=== PATIENT | male | born 1955 | race Caucasian/White ===

== ENCOUNTER 2016-05-17 17:06 | Inpatient (IN) | payer OTHER ==
[2016-05-17 18:15] LABS: MCH 27.6 pg (25.7-33.7); MEAN CELL VOLUME 81.2 fl (80-96); MEAN PLT VOLUME 8.2 fl (7.5-11.1); PLATELET COUNT 166 K/MM3 (134-434); RDW 15.8 % (11.9-15.9); WHITE BLOOD COUNT 7.6 K/mm3 (4.0-10.0)
--- NOTE | 2016-05-17 18:24 | PDOC ---
History of Present Illness - General History Source: Patient, Family, Old Records Exam Limitations: No Limitations - History of Present Illness Initial Comments: 05/17/16 19:42 The patient is a 61 year old male, with a significant past medical history of hypertension, hyperlipidemia, diabetes, coronary artery disease s/p stents x 2, atrial fibrillation (on Eliquis), T cell lymphoma and obesity, who presents to the emergency department with sudden onset of chest pain this afternoon at approximately 4PM. The patient states that he was in his usual state of health earlier today. At approximately 4PM, the patient was sitting down eating when he suddenly began experiencing chest tightness with associated diaphoresis, nausea and shortness of breath which lasted a couple of minutes in length before resolving. A short time later, the patient experienced a second episode of similar chest pain. The patient's family called the patient's commercial loan analyst ( Dr. Toribio) who advised they bring him to the ED for evaluation. The patient denies fever, chills, cough, vomiting or any recent illnesses. The patients family are at the bedside. Allergies: None reported. Past Surgical History: Stents x 2; Foot Surgery. Social History: Non smoker. Denies alcohol or drug use. PCP: Dr. Neil Fisher Sponge Hooking: Dr. Toribio Oncologist: Dr. Guzman <Lina Tillman - Last Filed: 05/17/16 20:01> - General History Source: Patient, Family Exam Limitations: No Limitations <Rodriguez Vegas - Last Filed: 05/17/16 20:05> - General Chief Complaint: Chest Pain Stated Complaint: CHETS PAIN/PALPITATIONS Time Seen by Provider: 05/17/16 17:40 Past History <Lina Tillman - Last Filed: 05/17/16 20:01> - Past Medical History Anemia: No Cancer: Yes (Yes; leukemia) Cardiac Disorders: Yes (2 cardiac stents; AFIB) CHF: Yes Diabetes: Yes GI Disorders: No HTN: Yes Hypercholesterolemia: Yes - Surgical History Cardiac Surgery: Yes (stents) Orthopedic Surgery: Yes (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) - Immunization History Immunization Up to Date: No - Psycho/Social/Smoking Cessation Hx Anxiety: No Suicidal Ideation: No Smoking Status: Yes Smoking History: Never smoked Have you smoked in the past 12 months: No Number of Cigarettes Smoked Daily: 0 Hx Alcohol Use: No Drug/Substance Use Hx: No Substance Use Type: None Hx Substance Use Treatment: No <ShastaRodriguez - Last Filed: 05/17/16 20:05> - Past Medical History Allergies/Adverse Reactions: Allergies Allergy/AdvReac Type Severity Reaction Status Date / Time No Known Drug Allergies Allergy Verified 05/17/16 17:18 Home Medications: Ambulatory Orders Apixaban [Eliquis] 5 mg PO DAILY 05/17/16 Cholecalciferol (Vitamin D3) [Vitamin D3 -] 1,000 unit PO DAILY 05/17/16 Clopidogrel Bisulfate [Plavix -] 75 mg PO DAILY 05/17/16 Cyclosporine [Sandimmune] 100 mg PO DAILY 05/17/16 Dulaglutide [Trulicity] 1.5 mg SQ DAILY 05/17/16 Febuxostat [Uloric -] 40 mg PO DAILY 05/17/16 Ferrous Sulfate [Feosol] 325 mg PO DAILY 05/17/16 Gabapentin 300 mg PO BID 05/17/16 Insulin Lispro [Humalog] 15 unit SQ BID 05/17/16 Magnesium Oxide [Magnesium] 400 mg PO DAILY 05/17/16 Meclizine HCl [Antivert -] 25 mg PO DAILY 05/17/16 Metoprolol Tartrate [Lopressor -] 25 mg PO DAILY 05/17/16 Potassium Chloride [K-Dur -] 20 meq PO DAILY 05/17/16 Torsemide [Demadex] 50 mg PO DAILY 05/17/16 Review of Systems - Review of Systems Able to Perform ROS?: Yes Comments:: 05/17/16 19:28 GENERAL/CONSTITUTIONAL: No fever or chills. No weakness. HEAD, EYES, EARS, NOSE AND THROAT: No change in vision. No ear pain or discharge. No sore throat. CARDIOVASCULAR: +Chest pain, diaphoresis, palpitations, shortness of breath. RESPIRATORY: No cough, wheezing, or hemoptysis. GASTROINTESTINAL: No nausea, vomiting, diarrhea or constipation. GENITOURINARY: No dysuria, frequency, or change in urination. MUSCULOSKELETAL: No joint or muscle swelling or pain. No neck or back pain. SKIN: No rash. NEUROLOGIC: No headache, vertigo, loss of consciousness, or change in strength/ sensation. ENDOCRINE: No increased thirst. No abnormal weight change. HEMATOLOGIC/LYMPHATIC: No anemia, easy bleeding, or history of blood clots. ALLERGIC/IMMUNOLOGIC: No hives or skin allergy. <Lina Tillman - Last Filed: 05/17/16 20:01> *Physical Exam - Vital Signs Last Vital Signs Temp Pulse Resp BP Pulse Ox 97.4 F L 119 H 20 154/90 100 05/17/16 17:18 05/17/16 17:18 05/17/16 17:18 05/17/16 17:18 05/17/16 17:18 - Physical Exam Comments: 05/17/16 18:29 GENERAL: Obese. Awake, alert, and fully oriented, in no acute distress. HEAD: No signs of trauma. EYES: PERRLA, EOMI, sclera anicteric, conjunctiva clear. ENT: Auricles normal inspection, hearing grossly normal, nares patent, oropharynx clear without exudates. Moist mucosa. NECK: Normal ROM, supple, no lymphadenopathy, JVD, or masses. LUNGS: Breath sounds equal, clear to auscultation bilaterally. No wheezes, and no crackles. HEART: Irregularly irregular, normal S1 and S2, no murmurs, rubs or gallops. ABDOMEN: Soft, nontender, normoactive bowel sounds. No guarding, no rebound. No masses. EXTREMITIES: Normal range of motion, no edema. No clubbing or cyanosis. No cords , erythema, or tenderness. NEUROLOGICAL: Cranial nerves II through XII intact. Normal speech, normal gait. SKIN: Warm, dry, normal turgor, no rashes or lesions noted. <Lina Tillman - Last Filed: 05/17/16 20:01> - Vital Signs Last Vital Signs Temp Pulse Resp BP Pulse Ox 97.4 F L 119 H 20 154/90 100 05/17/16 17:18 05/17/16 17:18 05/17/16 17:18 05/17/16 17:18 05/17/16 17:18 <Rodriguez Vegas - Last Filed: 05/17/16 20:05> Heart Score/ECG Review - History History: Moderately suspicious - Electrocardiogram EKG: Normal - Age Age: 45-65 - Risk Factors Based on the list above the patient has:: >/=3 risk factors or Hx atherosclerotic disease - Troponin Troponin: </= normal limit - Score Heart Score - Total: 4 #1 ECG reviewed & interpreted by me at: 17:15 05/17/16 18:21 atrial fibrillation 109, left axis deviation, no std/ganesh, QTC 447 msec <Rodriguez Vegas - Last Filed: 05/17/16 20:05> ED Treatment Course - LABORATORY CBC & Chemistry Diagram: 05/17/16 17:46 05/17/16 17:46 - ADDITIONAL ORDERS Additional order review: Laboratory Results 05/17/16 17:46 INR Cancelled <Lina Tillman - Last Filed: 05/17/16 20:01> - LABORATORY CBC & Chemistry Diagram: 05/17/16 17:46 05/17/16 17:46 - ADDITIONAL ORDERS Additional order review: Laboratory Results 05/17/16 17:46 INR Cancelled - RADIOLOGY Radiology Studies Ordered: Category Date Time Status CHEST X-RAY PORTABLE* [RAD] Stat Radiology 05/17/16 17:45 Completed <Rodriguez Vegas - Last Filed: 05/17/16 20:05> Medical Decision Making - Medical Decision Making 05/17/16 19:21 EXAM: RAD/CHEST X-RAY PORTABLE Reviewed By: Dr. Juice Goode IMPRESSION: Mild to moderate cardiomegaly and mild bibasal atelectatic changes, right more than left. Call placed to Dr. Neil at 19:08, 19:26, 19:50. Referred to answering service, awaiting callback. Dr. Wilson returned call at 20:00, case discussed. Call placed to Dr. Toribio at 19:10. Referred to answering service, awaiting callback. Dr. Huston returned call at 19:15, case discussed. <Lina Tillman - Last Filed: 05/17/16 20:01> - Medical Decision Making 05/17/16 18:22 A portion of this note was documented by scribe services under my direction. I have reviewed the details of the note, within reason, and agree with the documentation with the following case summary and management plan written by me. Patient treated in the ED. Nursing notes are reviewed and incorporated into the medical decision-making. Vital signs reviewed. Peripheral IV access obtained by the nurse, laboratory studies are drawn and sent, reviewed and interpreted by myself. Vital Signs Temp Pulse Resp BP Pulse Ox 97.4 F L 119 H 20 154/90 100 05/17/16 17:18 05/17/16 17:18 05/17/16 17:18 05/17/16 17:18 05/17/16 17:18 61-year-old male with past medical history of hypertension, diabetes, hyperlipidemia, obesity, coronary disease status post stents, atrial fibrillation on eliquis presents to the emergency department chest pain. Patient reports that he woke up in his usual state health. Approximately 4 PM, when he was eating, he felt the sudden onset of chest tightness with diaphoresis , nausea and shortness of breath. This lasted for several minutes. Occurred a second time and resolved again. Patient denies chest pain this time. He called his commercial loan analyst Dr. Toribio who directed the patient to the ER for further management. We'll need to rule out myocardial infarction. We'll admit the patient to the hospital for further patient. 05/17/16 20:04 Pt's afib HR improved with 5 mg IV metoprolol. CBC, BMP 05/17/16 17:46 05/17/16 17:46 CMP Sodium 136 mmol/L (136-145) 05/17/16 17:46 Potassium 4.4 mmol/L (3.5-5.1) 05/17/16 17:46 Chloride 98 mmol/L (98-107) 05/17/16 17:46 Carbon Dioxide 27 mmol/L (21-32) 05/17/16 17:46 Anion Gap 11 (8-16) 05/17/16 17:46 BUN 34 mg/dL (7-18) H 05/17/16 17:46 Creatinine 1.4 mg/dL (0.7-1.3) H 05/17/16 17:46 Creat Clearance w eGFR 51.69 (>60) 05/17/16 17:46 Random Glucose 319 mg/dL (74-106) H* D 05/17/16 17:46 Calcium 8.0 mg/dL (8.5-10.1) L 05/17/16 17:46 Total Bilirubin 0.6 mg/dL (0.2-1.0) D 05/17/16 17:46 AST 23 U/L (15-37) D 05/17/16 17:46 ALT 28 U/L (12-78) D 05/17/16 17:46 Alkaline Phosphatase 123 U/L (45-117) H D 05/17/16 17:46 Creatine Kinase 76 IU/L (39-308) 05/17/16 17:46 Troponin I < 0.02 ng/ml (0.00-0.05) 05/17/16 17:46 Total Protein 7.1 g/dl (6.4-8.2) 05/17/16 17:46 Albumin 3.2 g/dl (3.4-5.0) L 05/17/16 17:46 Trop negative. Case discussed with Dr. Huston, commercial loan analyst. States can hold off from giving aspirin given that he is already on Plavix and Eliquis. Case discussed with Dr. Wilson. He accepts the patient under telemetry observation under Dr. Neil. Case discussed in detail with admitting physician including history, physical exam and ancillary studies. Admitting physician has assumed care for the patient, will follow all pending diagnostics and will complete the evaluation and treatment. <Rodriguez Vegas - Last Filed: 05/17/16 20:05> *DC/Admit/Observation/Transfer - Attestations Scribe Attestion: 05/17/16 18:29 Documentation prepared by Lina Tillman, acting as adjunct faculty for medical terminology for Rodriguez Vegas MD. <Lina Tillman - Last Filed: 05/17/16 20:01> - Discharge Dispostion Admit: Yes <Rodriguez Vegas - Last Filed: 05/17/16 20:05> Diagnosis at time of Disposition: Afib Qualifiers: Atrial fibrillation type: unspecified Qualified Code(s): I48.91 - Unspecified atrial fibrillation Chest pain Qualifiers: Chest pain type: unspecified Qualified Code(s): R07.9 - Chest pain, unspecified - Discharge Dispostion Condition at time of disposition: Stable - Referrals Referrals: Diomedes Neil MD [Primary Care Provider] -
[2016-05-17] MEDS ORDERED: METOPROLOL TARTRATE 5 MG/5 ML VIAL IVPUSH ONE (18:30)
[2016-05-17 18:31] LABS: ALBUMIN 3.2 g/dl (3.4-5.0); ANION GAP 11 (8-16); BILIRUBIN,TOTAL 0.6 mg/dL (0.2-1.0); CO2 27 mmol/L (21-32); COCKROFT - GAULT 133.19; CREATININE 1.4 mg/dL (0.7-1.3); SGOT/AST 23 U/L (15-37); SGPT/ALT 28 U/L (12-78); TOT PROT 7.1 g/dl (6.4-8.2)
[2016-05-17 18:34] LABS: ALK PHOS 123 U/L (45-117); TROPONIN I < 0.02 ng/ml (0.00-0.05)
[2016-05-17 18:37] LABS: GLUCOSE,RANDOM 319 mg/dL (74-106)
[2016-05-17] MEDS ORDERED: METOPROLOL TARTRATE 5 MG/5 ML VIAL ONE (18:42)
[2016-05-17 20:55] LABS: INR 1.2 (0.82-1.09); PROTHROMBIN TIME (PATIENT) 13.3 SEC (9.98-11.88)
[2016-05-18 00:19] LABS: PLATELET COMMENT2 NO CLOTTING DETECTED; PLATELET ESTIMATE ADEQUATE (NORMAL); SMUDGE CELLS FEW
[2016-05-18 00:20] LABS: HYPOCHROMIA 1+; POLYCHROMASIA 1+
[2016-05-18] MEDS: INSULIN SLIDING SCALE (NOVOLOG) 1 VIAL SQ SCH ×5 (06:32→21:52)
[2016-05-18] MEDS ORDERED: INSULIN (NOVOLOG) ASPART 100 UNITS/ML 10ML VIAL ONE (07:01)
[2016-05-18 07:56] LABS: MCH 27.2 pg (25.7-33.7); MCHC 33.5 g/dl (32.0-35.9); MEAN CELL VOLUME 81.3 fl (80-96); MEAN PLT VOLUME 8.2 fl (7.5-11.1); PLATELET COUNT 149 K/MM3 (134-434); RDW 15.8 % (11.9-15.9); WHITE BLOOD COUNT 7.7 K/mm3 (4.0-10.0)
[2016-05-18 08:25] LABS: URIC ACID 9.9 mg/dL (2.6-7.2)
[2016-05-18 08:30] LABS: BILIRUBIN,TOTAL 0.6 mg/dL (0.2-1.0); CALCIUM 7.8 mg/dL (8.5-10.1); COCKROFT - GAULT 145.47; CREATININE 1.3 mg/dL (0.7-1.3); TOT PROT 6.3 g/dl (6.4-8.2); TROPONIN I 0.03 ng/ml (0.00-0.05)
--- NOTE | 2016-05-18 09:14 | HP ---
Admitting History and Physical - Primary Care Physician PCP: Diomedes Neil - Admission Chief Complaint: afib. 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: Peripheral Neuropathy Cardiovascular: Yes: AFIB, CAD, CHF, HTN, Hyperlipdemia Gastrointestinal: Yes: GERD Renal/: Yes: Renal Inusuff, Other (zhang) Heme/Onc: Yes: Anemia Infectious Disease: Yes: Other (osteomyelitis of left fifth metartarsal 2011) Endocrine: Yes: Diabetes Mellitus - Past Surgical History Past Surgical History: Yes: Stent (X2) - Smoking History Smoking history: Never smoked Have you smoked in the past 12 months: No Aproximately how many cigarettes per day: 0 - Alcohol/Substance Use Hx Alcohol Use: No History of Substance Use: reports: None - Social History ADL: Independent History of Recent Travel: No Home Medications - Allergies Allergies/Adverse Reactions: Allergies Allergy/AdvReac Type Severity Reaction Status Date / Time No Known Drug Allergies Allergy Verified 05/17/16 17:18 - Home Medications Home Medications: Ambulatory Orders Apixaban [Eliquis] 5 mg PO DAILY 05/17/16 Cholecalciferol (Vitamin D3) [Vitamin D3 -] 1,000 unit PO DAILY 05/17/16 Clopidogrel Bisulfate [Plavix -] 75 mg PO DAILY 05/17/16 Cyclosporine [Sandimmune] 100 mg PO DAILY 05/17/16 Dulaglutide [Trulicity] 1.5 mg SQ DAILY 05/17/16 Febuxostat [Uloric -] 40 mg PO DAILY 05/17/16 Ferrous Sulfate [Feosol] 325 mg PO DAILY 05/17/16 Gabapentin 300 mg PO BID 05/17/16 Insulin Lispro [Humalog] 15 unit SQ BID 05/17/16 Magnesium Oxide [Magnesium] 400 mg PO DAILY 05/17/16 Meclizine HCl [Antivert -] 25 mg PO DAILY 05/17/16 Metoprolol Tartrate [Lopressor -] 25 mg PO DAILY 05/17/16 Potassium Chloride [K-Dur -] 20 meq PO DAILY 05/17/16 Torsemide [Demadex] 50 mg PO DAILY 05/17/16 Family Disease History - Family Disease History Family Disease History: Diabetes: Father, Mother, Heart Disease: Father, Mother , Brother Review of Systems - Review of Systems Constitutional: denies: Chills, Fever Cardiovascular: denies: Chest Pain Respiratory: reports: SOB Gastrointestinal: denies: Abdominal Pain Physical Examination Vital Signs: Vital Signs Temperature 98.1 F 05/18/16 05:29 Pulse Rate 106 H 05/18/16 05:29 Respiratory Rate 16 05/18/16 05:29 Blood Pressure 148/83 05/18/16 05:29 O2 Sat by Pulse Oximetry (%) 100 05/18/16 01:17 Constitutional: Yes: Calm Eyes: Yes: PERRL HENT: Yes: Normocephalic Neck: Yes: WNL Cardiovascular: Yes: WNL Respiratory: Yes: WNL Gastrointestinal: Yes: WNL, Abdomen, Obese Edema: Yes Integumentary: Yes: Venous Stasis Changes Labs: CBC, BMP 05/18/16 06:30 05/18/16 06:30 Imaging - Results Chest X-ray: Report Reviewed Problem List - Problems (1) Afib Code(s): I48.91 - UNSPECIFIED ATRIAL FIBRILLATION Qualifiers: Atrial fibrillation type: unspecified Qualified Code(s): I48.91 - Unspecified atrial fibrillation (2) Chest pain Code(s): R07.9 - CHEST PAIN, UNSPECIFIED Qualifiers: Chest pain type: unspecified Qualified Code(s): R07.9 - Chest pain, unspecified (3) CHF (congestive heart failure) Code(s): I50.9 - HEART FAILURE, UNSPECIFIED (4) Diabetes Code(s): E11.9 - TYPE 2 DIABETES MELLITUS WITHOUT COMPLICATIONS Qualifiers: Diabetes mellitus type: type 2 Diabetes mellitus complication detail: with foot ulcer (5) HTN (hypertension) Code(s): I10 - ESSENTIAL (PRIMARY) HYPERTENSION (6) ZHANG (acute kidney injury) Code(s): N17.9 - ACUTE KIDNEY FAILURE, UNSPECIFIED Assessment/Plan The patient is a 61 year old male, with a significant past medical history of hypertension, hyperlipidemia, diabetes, coronary artery disease s/p stents x 2, atrial fibrillation (on Eliquis), T cell lymphoma and obesity, who presents to the emergency department with sudden onset of chest pain this afternoon at approximately 4PM. The patient states that he was in his usual state of health earlier today. At approximately 4PM, the patient was sitting down eating when he suddenly began experiencing chest tightness with associated diaphoresis, nausea and shortness of breath which lasted a couple of minutes in length before resolving. A short time later, the patient experienced a second episode of similar chest pain. The patient's family called the patient's director of guidance in public schools ( Dr. Toribio) who advised they bring him to the ED for evaluation. The patient denies fever, chills, cough, vomiting or any recent illnesses. The patients family are at the bedside. Allergies: None reported. Past Surgical History: Stents x 2; Foot Surgery. Social History: Non smoker. Denies alcohol or drug use. PCP: Dr. Neil Type Inspector: Dr. Toribio Oncologist: Dr. Guzman (1) Afib Code(s): I48.91 - UNSPECIFIED ATRIAL FIBRILLATION Qualifiers: Atrial fibrillation type: unspecified Qualified Code(s): I48.91 - Unspecified atrial fibrillation noac cardio consulted tele (2) Chest pain Code(s): R07.9 - CHEST PAIN, UNSPECIFIED Qualifiers: Chest pain type: unspecified Qualified Code(s): R07.9 - Chest pain, unspecified trop neg x 2 cardio consulted (3) CHF (congestive heart failure) Code(s): I50.9 - HEART FAILURE, UNSPECIFIED Qualifiers: Qualified Code(s): I50.32 - Chronic diastolic (congestive) heart failure cxr shows congestion on demadex iv lasix cr improved (4) Diabetes Code(s): E11.9 - TYPE 2 DIABETES MELLITUS WITHOUT COMPLICATIONS Qualifiers: Diabetes mellitus type: type 2 Diabetes mellitus complication detail: with foot ulcer Qualified Code(s): E11.621 - Type 2 diabetes mellitus with foot ulcer; L97.509 - Non-pressure chronic ulcer of other part of unspecified foot with unspecified severity; 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
[2016-05-18] MEDS: CHOLECALCIFEROL (VITAMIN D3) 1,000 UNIT TABLET (FP) PO SCH (09:16)
[2016-05-18] MEDS: APIXABAN 5 MG TABLET PO SCH ×2 (09:17→21:52)
[2016-05-18] MEDS: CLOPIDOGREL BISULFATE 75 MG TABLET (FP) PO SCH (09:17)
[2016-05-18] MEDS: METOPROLOL TARTRATE 25 MG TABLET (FP) PO SCH (09:17)
[2016-05-18] MEDS: MECLIZINE HCL 25 MG TABLET (FP) PO SCH (09:17)
[2016-05-18] MEDS: POTASSIUM CHLORIDE TABS 20 MEQ TABLET.ER (FP) PO SCH (09:17)
[2016-05-18] MEDS: GABAPENTIN 300 MG CAPSULE (FP) PO SCH ×2 (09:17→21:52)
[2016-05-18] MEDS: FERROUS SO4 325 MG TABLET (FP) PO SCH (09:18)
[2016-05-18 09:50] LABS: HYPOCHROMIA 1+; POLYCHROMASIA 1+
[2016-05-18] MEDS ORDERED: FUROSEMIDE 40 MG/4 ML INJECTABLE VIAL IVPB SCH (10:00)
[2016-05-18] MEDS ORDERED: APIXABAN 5 MG TABLET PO SCH (10:00)
[2016-05-18] MEDS ORDERED: PATIENT'S OWN MEDICATION (NON-FORMULARY) (Dulaglutide [Trulicity] 1.5 MG) SQ SCH (10:00)
[2016-05-18] MEDS ORDERED: PT OWN MED DRAWER 7, Y5N ONE (10:43)
[2016-05-18] MEDS: cycloSPORINE 100 MG CAPSULE PO SCH (12:25)
[2016-05-18] MEDS: TORSEMIDE 100 MG TABLET PO SCH (12:25)
[2016-05-18] MEDS ORDERED: INSULIN (NOVOLOG) ASPART 100 UNITS/ML 10ML VIAL SQ SCH (16:30)
--- NOTE | 2016-05-18 17:16 | CONSULT ---
Consult Consult Specialty:: Cardiology Referred by:: ED Reason for Consultation:: Chest pain - History of Present Illness Chief Complaint: Chest pain History of Present Illness: 61 yo male Known h/o HTN, HPL, DM Known CAD with ptiot PCI on NOAC and plavix Afob on Apixaban Now admitted after acute and recurrent episode of chest pain associated with diaphoresis, dyspnea and nausea. 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 Cardio/Vascular: Yes: AFIB, CAD, CHF, HTN, Hyperlipdemia Gastrointestinal: Yes: GERD Renal/: Yes: Renal Inusuff, Other (gopal) Infectious Disease: Yes: Other (osteomyelitis of left fifth metartarsal 2011) Endocrine: Yes: Diabetes Mellitus Additional Medical History: obesity - Past Surgical History Past Surgical History: Yes: Stent (X2) - Alcohol/Substance Use Hx Alcohol Use: No History of Substance Use: reports: None - Smoking History Smoking history: Never smoked Have you smoked in the past 12 months: No Aproximately how many cigarettes per day: 0 - Social History Usual Living Arrangement: With Spouse ADL: Independent History of Recent Travel: No Home Medications - Allergies Allergies/Adverse Reactions: Allergies Allergy/AdvReac Type Severity Reaction Status Date / Time No Known Drug Allergies Allergy Verified 05/17/16 17:18 - Home Medications Home Medications: Ambulatory Orders Apixaban [Eliquis] 5 mg PO DAILY 05/17/16 Cholecalciferol (Vitamin D3) [Vitamin D3 -] 1,000 unit PO DAILY 05/17/16 Clopidogrel Bisulfate [Plavix -] 75 mg PO DAILY 05/17/16 Cyclosporine [Sandimmune] 100 mg PO DAILY 05/17/16 Dulaglutide [Trulicity] 1.5 mg SQ DAILY 05/17/16 Febuxostat [Uloric -] 40 mg PO DAILY 05/17/16 Ferrous Sulfate [Feosol] 325 mg PO DAILY 05/17/16 Gabapentin 300 mg PO BID 05/17/16 Insulin Lispro [Humalog] 15 unit SQ BID 05/17/16 Magnesium Oxide [Magnesium] 400 mg PO DAILY 05/17/16 Meclizine HCl [Antivert -] 25 mg PO DAILY 05/17/16 Metoprolol Tartrate [Lopressor -] 25 mg PO DAILY 05/17/16 Potassium Chloride [K-Dur -] 20 meq PO DAILY 05/17/16 Torsemide [Demadex] 50 mg PO DAILY 05/17/16 Family Disease History - Family Disease History Family Disease History: Diabetes: Father, Mother, Heart Disease: Father, Mother , Brother Review of Systems - Review of Systems Cardiovascular: reports: Chest Pain, Palpitations Physical Exam Vital Signs: Vital Signs Temperature 97.8 F 05/18/16 14:00 Pulse Rate 66 05/18/16 14:00 Respiratory Rate 22 05/18/16 14:00 Blood Pressure 110/52 05/18/16 14:00 O2 Sat by Pulse Oximetry (%) 100 05/18/16 09:15 Constitutional: Yes: No Distress, Calm Eyes: Yes: WNL HENT: Yes: WNL Neck: Yes: WNL Cardiovascular: Yes: Regular Rate and Rhythm Respiratory: Yes: WNL Gastrointestinal: Yes: Abdomen, Obese Edema: Yes Edema: LLE: 2+, RLE: 2+ Labs: CBC, BMP 05/18/16 06:30 05/18/16 06:30 Imaging - Results EKG: Image Reviewed (Afib at 109 with LAD) Assessment/Plan 61 yo 1) Chest pain -prior SANGITA x 2 to prox and dist Lcx 2012; -no residual obstructive dz then (30-50% LAD, mild RCA); -Atypical symptoms, non -exertional and following food intake -Stress testing will be a challenge on [facility] obese patient -Continue to montior, if no further symptoms may recommend continues medical therapy. 2) HFpEF: well-compensated, no sob; LE edema stable continue po torsemide Echo 03/27: nl LV/EF; nl RV; valve fxn WNL2) HTN 4) Afib -Now in NSR with gabriela -Hold BB for HR <50 Continue Eliquis
[2016-05-18] MEDS ORDERED: INSULIN (NOVOLOG MIX 70/30) 100 UNITS/ML MDV SQ ONE (18:38)
[2016-05-18] MEDS: INSULIN (NOVOLOG MIX 70/30) 100 UNITS/ML MDV SQ SCH (18:40)
--- NOTE | 2016-05-19 00:14 | CONSULT ---
Consult Consult Specialty:: endocrine Referred by:: Reason for Consultation:: iddm - History of Present Illness Chief Complaint: high blood sugars History of Present Illness: 61 year old male, with a significant past medical history of hypertension, hyperlipidemia, diabetes, coronary artery disease s/p stents x 2, atrial fibrillation (on Eliquis), T cell lymphoma and obesity, who presents to the emergency department with sudden onset of chest pain this afternoon at approximately 4PM. The patient states that he was in his usual state of health earlier today.has difficulty controlling sugars,and weight with history of diabetic wound infection both le,s has difficulty walking and restricted mobility given his morbid obese condition - History Source History Provided By: Patient - Past Medical History CHAIN DYER: Yes: Peripheral Neuropathy Cardio/Vascular: Yes: AFIB, CAD, CHF, HTN, Hyperlipdemia Gastrointestinal: Yes: GERD Renal/: Yes: Renal Inusuff, Other (gopal) Infectious Disease: Yes: Other (osteomyelitis of left fifth metartarsal 2011) Endocrine: Yes: Diabetes Mellitus Additional Medical History: obesity - Past Surgical History Past Surgical History: Yes: Stent (X2) - Alcohol/Substance Use Hx Alcohol Use: No History of Substance Use: reports: None - Smoking History Smoking history: Never smoked Have you smoked in the past 12 months: No Aproximately how many cigarettes per day: 0 - Social History Usual Living Arrangement: With Spouse ADL: Independent History of Recent Travel: No Home Medications - Allergies Allergies/Adverse Reactions: Allergies Allergy/AdvReac Type Severity Reaction Status Date / Time No Known Drug Allergies Allergy Verified 05/17/16 17:18 - Home Medications Home Medications: Ambulatory Orders Apixaban [Eliquis] 5 mg PO DAILY 05/17/16 Cholecalciferol (Vitamin D3) [Vitamin D3 -] 1,000 unit PO DAILY 05/17/16 Clopidogrel Bisulfate [Plavix -] 75 mg PO DAILY 05/17/16 Cyclosporine [Sandimmune] 100 mg PO DAILY 05/17/16 Dulaglutide [Trulicity] 1.5 mg SQ DAILY 05/17/16 Febuxostat [Uloric -] 40 mg PO DAILY 05/17/16 Ferrous Sulfate [Feosol] 325 mg PO DAILY 05/17/16 Gabapentin 300 mg PO BID 05/17/16 Insulin Lispro [Humalog] 15 unit SQ BID 05/17/16 Magnesium Oxide [Magnesium] 400 mg PO DAILY 05/17/16 Meclizine HCl [Antivert -] 25 mg PO DAILY 05/17/16 Metoprolol Tartrate [Lopressor -] 25 mg PO DAILY 05/17/16 Potassium Chloride [K-Dur -] 20 meq PO DAILY 05/17/16 Torsemide [Demadex] 50 mg PO DAILY 05/17/16 Family Disease History - Family Disease History Family Disease History: Diabetes: Father, Mother, Heart Disease: Father, Mother , Brother Review of Systems - Review of Systems Constitutional: reports: Weakness Eyes: reports: No Symptoms HENT: reports: No Symptoms Neck: reports: No Symptoms Cardiovascular: reports: Edema, Shortness of Breath Respiratory: reports: SOB on Exertion Gastrointestinal: reports: No Symptoms Genitourinary: reports: No Symptoms Musculoskeletal: reports: Muscle Cramps, Muscle Weakness Integumentary: reports: Pruritis Neurological: reports: Numbness, Unsteady Gait, Weakness Endocrine: reports: Unexplained Weight Gain Physical Exam Vital Signs: Vital Signs Temperature 98.1 F 05/18/16 22:00 Pulse Rate 66 05/18/16 22:00 Respiratory Rate 20 05/18/16 22:00 Blood Pressure 128/60 05/18/16 22:00 O2 Sat by Pulse Oximetry (%) 100 05/18/16 22:00 Constitutional: Yes: Calm Eyes: Yes: EOM Intact HENT: Yes: Normocephalic Neck: Yes: Trachea Midline Cardiovascular: Yes: Pulse Irregular, Murmur Respiratory: Yes: CTA Bilaterally Gastrointestinal: Yes: Normal Bowel Sounds ...Rectal Exam: Yes: Deferred Renal/: Yes: WNL Breast(s): Yes: WNL Musculoskeletal: Yes: Muscle Pain Extremities: Yes: Delayed Capillary Refill, Erythema Edema: Yes Edema: LLE: 2+, RLE: 1+ Peripheral Pulses WNL: No Integumentary: Yes: Onychomycosis, Venous Stasis Changes Neurological: Yes: Alert, Oriented Labs: CBC, BMP 05/18/16 06:30 05/18/16 06:30 Problem List - Problems (1) Afib Code(s): I48.91 - UNSPECIFIED ATRIAL FIBRILLATION Qualifiers: Atrial fibrillation type: unspecified Qualified Code(s): I48.91 - Unspecified atrial fibrillation (2) CAD (coronary artery disease) Code(s): I25.10 - ATHSCL HEART DISEASE OF [place] CORONARY ARTERY W/O ANG PCTRS (3) Cellulitis of toe Code(s): L03.039 - CELLULITIS OF UNSPECIFIED TOE Qualifiers: Laterality: left Qualified Code(s): L03.032 - Cellulitis of left toe (4) Diabetes mellitus, insulin dependent (IDDM), uncontrolled Code(s): E10.65 - TYPE 1 DIABETES MELLITUS WITH HYPERGLYCEMIA Assessment/Plan Current Active Problems Afib (Acute) Chest pain (Acute) iddm ckd nephropathy htn chf pvd chronic diabetic foot infections morbid obesity Abnormal Lab Results 05/17/16 05/18/16 05/18/16 17:46 06:30 06:30 Hgb 11.5 L Hct 34.4 L Neutrophils % 4.0 L 13.0 L D Lymphocytes % 77.0 H 71.0 H BUN 30 H Random Glucose 239 H D Hemoglobin A1c % Uric Acid Calcium 7.8 L Total Protein 6.3 L Albumin 3.0 L HDL Cholesterol 05/18/16 05/18/16 06:30 06:30 Hgb Hct Neutrophils % Lymphocytes % BUN Random Glucose Hemoglobin A1c % 8.9 H D Uric Acid 9.9 H D Calcium Total Protein Albumin HDL Cholesterol 39 L Current Medications Generic Name Dose Route Start Last Admin Trade Name Freq PRN Reason Stop Dose Admin Apixaban 5 mg 05/18/16 10:00 05/18/16 21:52 Eliquis - PO 5 mg BID JENNY Administration Cholecalciferol 1,000 unit 05/18/16 10:00 05/18/16 09:16 Vitamin D3 - PO 1,000 unit DAILY JENNY Administration Clopidogrel Bisulfate 75 mg 05/18/16 10:00 05/18/16 09:17 Plavix - PO 75 mg DAILY JENNY Administration Cyclosporine 100 mg 05/18/16 10:00 05/18/16 12:25 Sandimmune (Nf) PO 100 mg DAILY JENNY Administration Febuxostat 40 mg 05/18/16 10:00 05/18/16 12:24 Uloric - PO 40 mg DAILY JENNY Administration Ferrous Sulfate 325 mg 05/18/16 10:00 05/18/16 09:18 Feosol - PO Not Given DAILY JENNY Furosemide 40 mg 05/18/16 10:00 05/18/16 10:48 Lasix Injection - IVPB 40 mg DAILY JENNY Administration Gabapentin 300 mg 05/18/16 10:00 05/18/16 21:52 Neurontin - PO 300 mg BID JENNY Administration Insulin Aspart 15 units 05/19/16 07:00 05/18/16 18:40 Novolog Mix 70/30 Vial SQ 15 units BIDAC JENNY Administration Insulin Aspart 1 vial 05/18/16 18:06 05/18/16 21:52 Novolog Vial Sliding Scale - SQ 5 units ACHS JENNY Administration Protocol Meclizine HCl 25 mg 05/18/16 10:00 05/18/16 09:17 Antivert - PO 25 mg DAILY JENNY Administration Metoprolol Tartrate 25 mg 05/18/16 10:00 05/18/16 09:17 Lopressor - PO 25 mg DAILY JENNY Administration Non-Formulary Medication 1.5 mg 05/18/16 10:00 Dulaglutide [Trulicity] SQ DAILY JENNY Potassium Chloride 20 meq 05/18/16 10:00 05/18/16 09:17 K-Dur - PO 20 meq DAILY JENNY Administration Torsemide 50 mg 05/18/16 10:00 05/18/16 12:25 Demadex - PO 50 mg DAILY JENNY Administration plan: bgm qid novolog coverage novolog 70/30 bid 15 units ck [id number] cardiac eval in progress
[2016-05-19] MEDS: INSULIN (NOVOLOG MIX 70/30) 100 UNITS/ML MDV SQ SCH ×2 (06:14→17:34)
[2016-05-19] MEDS: INSULIN SLIDING SCALE (NOVOLOG) 1 VIAL SQ SCH ×4 (06:14→21:59)
[2016-05-19 07:38] LABS: MCH 27.3 pg (25.7-33.7); MCHC 33.7 g/dl (32.0-35.9); PLATELET COUNT 132 K/MM3 (134-434); WHITE BLOOD COUNT 8.1 K/mm3 (4.0-10.0)
--- NOTE | 2016-05-19 07:50 | DS ---
Physical Examination Vital Signs: Vital Signs Temperature 97.9 F 05/19/16 06:00 Pulse Rate 70 05/19/16 06:00 Respiratory Rate 20 05/19/16 06:00 Blood Pressure 146/74 05/19/16 06:00 O2 Sat by Pulse Oximetry (%) 100 05/18/16 22:00 Findings/Remarks: NO COMPLAINTS OK WITH GOING HOME FAMILY AT BEDSIDE Constitutional: Yes: Calm Neck: Yes: WNL Cardiovascular: Yes: WNL Respiratory: Yes: WNL Gastrointestinal: Yes: WNL Edema: Yes Integumentary: Yes: Venous Stasis Changes Discharge Summary Reason For Visit: ATRIAL FIBRILLATION, CHEST PAIN Current Active Problems Afib (Acute) Chest pain (Acute) Hospital Course: The patient is a 61 year old male, with a significant past medical history of hypertension, hyperlipidemia, diabetes, coronary artery disease s/p stents x 2, atrial fibrillation (on Eliquis), T cell lymphoma and obesity, who presents to the emergency department with sudden onset of chest pain this afternoon at approximately 4PM. The patient states that he was in his usual state of health earlier today. At approximately 4PM, the patient was sitting down eating when he suddenly began experiencing chest tightness with associated diaphoresis, nausea and shortness of breath which lasted a couple of minutes in length before resolving. A short time later, the patient experienced a second episode of similar chest pain. The patient's family called the patient's informatica ( Dr. Toribio) who advised they bring him to the ED for evaluation. The patient denies fever, chills, cough, vomiting or any recent illnesses. The patients family are at the bedside. Allergies: None reported. Past Surgical History: Stents x 2; Foot Surgery. Social History: Non smoker. Denies alcohol or drug use. PCP: Dr. Neil Temp Recruiter: Dr. Toribio Oncologist: Dr. Guzman (1) Afib Code(s): I48.91 - UNSPECIFIED ATRIAL FIBRILLATION Qualifiers: Atrial fibrillation type: unspecified Qualified Code(s): I48.91 - Unspecified atrial fibrillation noac cardio consult appreciated tele (2) Chest pain Code(s): R07.9 - CHEST PAIN, UNSPECIFIED Qualifiers: Chest pain type: unspecified Qualified Code(s): R07.9 - Chest pain, unspecified no acs cardio consult appreciated -> atypical chest pain (3) CHF (congestive heart failure) Code(s): I50.9 - HEART FAILURE, UNSPECIFIED Qualifiers: Qualified Code(s): I50.32 - Chronic diastolic (congestive) heart failure cxr shows congestion on demadex iv lasix -> stop cr improved (4) Diabetes Code(s): E11.9 - TYPE 2 DIABETES MELLITUS WITHOUT COMPLICATIONS Qualifiers: Diabetes mellitus type: type 2 Diabetes mellitus complication detail: with foot ulcer Qualified Code(s): E11.621 - Type 2 diabetes mellitus with foot ulcer; L97.509 - Non-pressure chronic ulcer of other part of unspecified foot with unspecified severity; Z79.4 - salvage determiner (current) use of insulin improved bgm iss endo consult appreciated (5) HTN (hypertension) Code(s): I10 - ESSENTIAL (PRIMARY) HYPERTENSION (6) ZHANG (acute kidney injury) Code(s): N17.9 - ACUTE KIDNEY FAILURE, UNSPECIFIED improved renal consulted (7) GOUT URIC ACID 8 ON ULORIC 40 -> LIKELY NEED 80 + DIET ED PCP TO F/U DISCHARGE HOME IF OK WITH CARDIO PLANNED STRESS TEST SATURDAY 05/20 vs OUTPT? -> RN TO D/W CARDIO INFORMATION RESOURCES DIRECTOR FM - Instructions Referrals: Diomedes Neil MD [Primary Care Provider] - - Home Medications Comprehensive Discharge Medication List: Ambulatory Orders Apixaban [Eliquis] 5 mg PO DAILY 05/17/16 Cholecalciferol (Vitamin D3) [Vitamin D3 -] 1,000 unit PO DAILY 05/17/16 Clopidogrel Bisulfate [Plavix -] 75 mg PO DAILY 05/17/16 Cyclosporine [Sandimmune] 100 mg PO DAILY 05/17/16 Dulaglutide [Trulicity] 1.5 mg SQ DAILY 05/17/16 Febuxostat [Uloric -] 40 mg PO DAILY 05/17/16 Ferrous Sulfate [Feosol] 325 mg PO DAILY 05/17/16 Gabapentin 300 mg PO BID 05/17/16 Insulin Lispro [Humalog] 15 unit SQ BID 05/17/16 Magnesium Oxide [Magnesium] 400 mg PO DAILY 05/17/16 Meclizine HCl [Antivert -] 25 mg PO DAILY 05/17/16 Metoprolol Tartrate [Lopressor -] 25 mg PO DAILY 05/17/16 Potassium Chloride [K-Dur -] 20 meq PO DAILY 05/17/16 Torsemide [Demadex] 50 mg PO DAILY 05/17/16
[2016-05-19 08:11] LABS: ALBUMIN 2.9 g/dl (3.4-5.0)
[2016-05-19 08:17] LABS: BILIRUBIN,TOTAL 0.6 mg/dL (0.2-1.0); COCKROFT - GAULT 105.9; CREATININE 1.8 mg/dL (0.7-1.3); TOT PROT 6.3 g/dl (6.4-8.2)
[2016-05-19] MEDS ORDERED: PT OWN MED DRAWER 7, Y5N ONE (09:36)
--- NOTE | 2016-05-19 09:57 | PN ---
Progress Note, Physician History of Present Illness: No complaints No further chest pain overnight Tele: NSR 60-70s. - Current Medication List Current Medications: Active Medications Apixaban (Eliquis -) 5 mg PO BID [facility] Last Admin: 05/18/16 21:52 Dose: 5 mg Cholecalciferol (Vitamin D3 -) 1,000 unit PO DAILY [facility] Last Admin: 05/18/16 09:16 Dose: 1,000 unit Clopidogrel Bisulfate (Plavix -) 75 mg PO DAILY [facility] Last Admin: 05/18/16 09:17 Dose: 75 mg Cyclosporine (Sandimmune (Nf)) 100 mg PO DAILY [facility] Last Admin: 05/18/16 12:25 Dose: 100 mg Febuxostat (Uloric -) 40 mg PO DAILY [facility] Last Admin: 05/18/16 12:24 Dose: 40 mg Ferrous Sulfate (Feosol -) 325 mg PO DAILY [facility] Last Admin: 05/18/16 09:18 Dose: Not Given Gabapentin (Neurontin -) 300 mg PO BID [facility] Last Admin: 05/18/16 21:52 Dose: 300 mg Insulin Aspart (Novolog Mix 70/30 Vial) 15 units SQ BIDAC [facility] Last Admin: 05/19/16 06:14 Dose: 15 units Insulin Aspart (Novolog Vial Sliding Scale -) 1 vial SQ [facility] PRN Reason: Protocol Last Admin: 05/19/16 06:14 Dose: 3 units Meclizine HCl (Antivert -) 25 mg PO DAILY [facility] Last Admin: 05/18/16 09:17 Dose: 25 mg Metoprolol Tartrate (Lopressor -) 25 mg PO DAILY [facility] Last Admin: 05/18/16 09:17 Dose: 25 mg Non-Formulary Medication (Dulaglutide [Trulicity]) 1.5 mg SQ DAILY [facility] Potassium Chloride (K-Dur -) 20 meq PO DAILY [facility] Last Admin: 05/18/16 09:17 Dose: 20 meq Torsemide (Demadex -) 50 mg PO DAILY [facility] Last Admin: 05/18/16 12:25 Dose: 50 mg - Objective Vital Signs: Vital Signs Temperature 97.9 F 05/19/16 06:00 Pulse Rate 70 05/19/16 06:00 Respiratory Rate 20 05/19/16 06:00 Blood Pressure 146/74 05/19/16 06:00 O2 Sat by Pulse Oximetry (%) 100 05/18/16 22:00 Constitutional: Yes: No Distress, Calm Eyes: Yes: WNL HENT: Yes: WNL Neck: Yes: WNL Cardiovascular: Yes: Regular Rate and Rhythm Respiratory: Yes: WNL Gastrointestinal: Yes: Abdomen, Obese Edema: Yes Edema: LLE: 1+, RLE: 1+ Labs: CBC, BMP 05/19/16 06:15 05/19/16 06:15 INR, PTT INR 1.20 (0.82-1.09) H 05/17/16 19:48 Assessment/Plan 61 yo with known CAD and prior PCI admitted now with atypical chest pain episode after eating. 1) Chest pain -prior SANGITA x 2 to prox and dist Lcx 2012; -no residual obstructive dz then (30-50% LAD, mild RCA); -Atypical symptoms, non -exertional and following food intake -Stress testing will be a challenge on this obese patient -Cardiac enzymes are negative -Continue to monitor, if no further symptoms may recommend he continues medical therapy. Consider GI evluation 2) HFpEF: well-compensated, no sob; LE edema stable continue po torsemide Echo 03/27: nl LV/EF; nl RV; valve fxn WNL2) HTN 3) Afib -Now in NSR, bradycardia resolved -Hold BB for HR <50 Continue Eliquis for Afib and plavix (for his prior PCI)
[2016-05-19] MEDS: TORSEMIDE 100 MG TABLET PO SCH (10:36)
[2016-05-19] MEDS: MECLIZINE HCL 25 MG TABLET (FP) PO SCH (10:36)
[2016-05-19] MEDS: APIXABAN 5 MG TABLET PO SCH ×2 (10:37→21:59)
[2016-05-19] MEDS: FERROUS SO4 325 MG TABLET (FP) PO SCH (10:37)
[2016-05-19] MEDS: CLOPIDOGREL BISULFATE 75 MG TABLET (FP) PO SCH (10:38)
[2016-05-19] MEDS: POTASSIUM CHLORIDE TABS 20 MEQ TABLET.ER (FP) PO SCH (10:38)
[2016-05-19] MEDS: GABAPENTIN 300 MG CAPSULE (FP) PO SCH ×2 (10:38→21:59)
[2016-05-19] MEDS: METOPROLOL TARTRATE 25 MG TABLET (FP) PO SCH (10:39)
[2016-05-19] MEDS: cycloSPORINE 100 MG CAPSULE PO SCH (10:39)
[2016-05-19] MEDS: CHOLECALCIFEROL (VITAMIN D3) 1,000 UNIT TABLET (FP) PO SCH (10:40)
[2016-05-19 14:05] VITALS: BMI 55.8
--- NOTE | 2016-05-19 14:05 | CON.NEP ---
Consult Consult Specialty:: NEPHROLOGY Reason for Consultation:: ckd - History of Present Illness Chief Complaint: chest pain/palpitaions History of Present Illness: 61 year old man with multiple medical problems including dm, htn, cad, s/p stent placement who presented with acute onset of chest pain and palpitations. He came to er and was admitted for observation. He feels better now. Has history of CKD but did not have any difficulty urinating or nause ao r vomiting - History Source History Provided By: Patient, Medical Record Limitations to Obtaining History: No Limitations - Past Medical History ETL INFORMATICA ARCHITECT: Yes: Peripheral Neuropathy Cardio/Vascular: Yes: AFIB, CAD, CHF, HTN, Hyperlipdemia Gastrointestinal: Yes: GERD Renal/: Yes: Renal Inusuff, Other (gopal) Infectious Disease: Yes: Other (osteomyelitis of left fifth metartarsal 2012) Endocrine: Yes: Diabetes Mellitus Additional Medical History: morbid obesity - Past Surgical History Past Surgical History: Yes: Stent (X2) - Alcohol/Substance Use Hx Alcohol Use: No History of Substance Use: reports: None - Smoking History Smoking history: Never smoked Have you smoked in the past 12 months: No Aproximately how many cigarettes per day: 0 - Social History Usual Living Arrangement: With Spouse ADL: Independent History of Recent Travel: No Home Medications - Allergies Allergies/Adverse Reactions: Allergies Allergy/AdvReac Type Severity Reaction Status Date / Time No Known Drug Allergies Allergy Verified 05/17/16 17:18 - Home Medications Home Medications: Ambulatory Orders Cholecalciferol (Vitamin D3) [Vitamin D3 -] 1,000 unit PO DAILY 05/17/16 Clopidogrel Bisulfate [Plavix -] 75 mg PO DAILY 05/17/16 Cyclosporine [Sandimmune] 100 mg PO DAILY 05/17/16 Dulaglutide [Trulicity] 1.5 mg SQ DAILY 05/17/16 Febuxostat [Uloric -] 40 mg PO DAILY 05/17/16 Ferrous Sulfate [Feosol] 325 mg PO DAILY 05/17/16 Gabapentin 300 mg PO BID 05/17/16 Magnesium Oxide [Magnesium] 400 mg PO DAILY 05/17/16 Meclizine HCl [Antivert -] 25 mg PO DAILY 05/17/16 Metoprolol Tartrate [Lopressor -] 25 mg PO DAILY 05/17/16 Potassium Chloride [K-Dur -] 20 meq PO DAILY 05/17/16 Torsemide [Demadex -] 50 mg PO DAILY 05/17/16 Apixaban [Eliquis -] 5 mg PO BID tablet 05/19/16 Insulin (Novolog 70/30) [Novolog Mix 70/30 Flexpen -] 15 units SQ BIDAC #1 pen 05/19/16 Family Disease History - Family Disease History Family Disease History: Diabetes: Father, Mother, Heart Disease: Father, Mother , Brother Review of Systems - Review of Systems Constitutional: reports: No Symptoms Eyes: reports: No Symptoms HENT: reports: No Symptoms Neck: reports: No Symptoms Cardiovascular: reports: Chest Pain, Palpitations, Shortness of Breath Respiratory: reports: No Symptoms Gastrointestinal: reports: No Symptoms Genitourinary: reports: No Symptoms Breasts: reports: No Symptoms Reported Musculoskeletal: reports: No Symptoms Integumentary: reports: No Symptoms Neurological: reports: No Symptoms Endocrine: reports: No Symptoms Hematology/Lymphatic: reports: No Symptoms Psychiatric: reports: No Symptoms Nephrology Consult - Height Height: 5 ft 9 in - Weight Weight: 378 lb 4 oz - BMI Body Mass Index (BMI): 55.8 - Lab Results CBC,BMP: CBC, BMP 05/19/16 06:15 05/19/16 06:15 Anion Gap: Anion Gap Anion Gap 9 (8-16) 05/19/16 06:15 - Imaging Chest X-ray: Report Reviewed (cardiomegaly with bibasilar atelectasis) - Physical Examination Vital Signs: Vital Signs Temperature 98.2 F 05/19/16 13:56 Pulse Rate 72 05/19/16 13:56 Respiratory Rate 20 05/19/16 13:56 Blood Pressure 124/55 05/19/16 13:56 O2 Sat by Pulse Oximetry (%) 100 05/18/16 22:00 Constitutional: Yes: Well Nourished, No Distress, Obese Eyes: Yes: Conjunctiva Clear HENT: Yes: Atraumatic, Normocephalic Neck: Yes: Supple, Trachea Midline Cardiovascular: Yes: Regular Rate and Rhythm, Varicosities Respiratory: Yes: Regular, CTA Bilaterally Gastrointestinal: Yes: Normal Bowel Sounds Renal/: Yes: WNL Extremities: Yes: WNL Edema: No Peripheral Pulses WNL: Yes Integumentary: Yes: WNL Neurological: Yes: Alert, Oriented Psychiatric: Yes: Alert, Oriented Assessment/Plan IMPRESSION gopal on ckd morbid obesity gout h/o cad palpitations and chest pain PLAN would repeat creatinine tomorrow and hold torsemide if creat is rising obtain urine sodium, urea and creatinine avoid nephrotoxins urinalysis MV
--- NOTE | 2016-05-19 17:16 | EKG ---
Test Reason : Blood Pressure : / mmHG Vent. Rate : 109 BPM Atrial Rate : 080 BPM P-R Int : 000 ms QRS Dur : 092 ms QT Int : 332 ms P-R-T Axes : 000 -41 058 degrees QTc Int : 447 ms ATRIAL FIBRILLATION WITH RAPID VENTRICULAR RESPONSE LEFT AXIS DEVIATION ABNORMAL ECG WHEN COMPARED WITH ECG OF 24-JUN-2014 21:56, ATRIAL FIBRILLATION HAS REPLACED SINUS RHYTHM QRS AXIS SHIFTED LEFT Confirmed by ANNA DURBIN, WESLEY ([id number]) on 05/19/2016 5:16:15 PM Referred By: Confirmed By:WESLEY CASTILLO MD
--- NOTE | 2016-05-19 21:44 | PN ---
Progress Note, Physician Chief Complaint: sugars elevated not eating much History of Present Illness: iddm ckd,htn,morbid obesity,chf,hyperlipidemia,cad,angina - Current Medication List Current Medications: Active Medications Apixaban (Eliquis -) 5 mg PO BID [facility] Last Admin: 05/19/16 10:37 Dose: 5 mg Cholecalciferol (Vitamin D3 -) 1,000 unit PO DAILY [facility] Last Admin: 05/19/16 10:40 Dose: 1,000 unit Clopidogrel Bisulfate (Plavix -) 75 mg PO DAILY [facility] Last Admin: 05/19/16 10:38 Dose: 75 mg Cyclosporine (Sandimmune (Nf)) 100 mg PO DAILY [facility] Last Admin: 05/19/16 10:39 Dose: 100 mg Febuxostat (Uloric -) 40 mg PO DAILY [facility] Last Admin: 05/19/16 10:40 Dose: 40 mg Ferrous Sulfate (Feosol -) 325 mg PO DAILY [facility] Last Admin: 05/19/16 10:37 Dose: 325 mg Gabapentin (Neurontin -) 300 mg PO BID [facility] Last Admin: 05/19/16 10:38 Dose: 300 mg Insulin Aspart (Novolog Vial Sliding Scale -) 1 vial SQ ACHS [facility] PRN Reason: Protocol Last Admin: 05/19/16 17:34 Dose: 3 units Insulin Aspart (Novolog Mix 70/30 Vial) 18 units SQ BIDAC [facility] Meclizine HCl (Antivert -) 25 mg PO DAILY [facility] Last Admin: 05/19/16 10:36 Dose: 25 mg Metoprolol Tartrate (Lopressor -) 25 mg PO DAILY [facility] Last Admin: 05/19/16 10:39 Dose: 25 mg Non-Formulary Medication (Dulaglutide [Trulicity]) 1.5 mg SQ DAILY [facility] Potassium Chloride (K-Dur -) 20 meq PO DAILY [facility] Last Admin: 05/19/16 10:38 Dose: 20 meq Torsemide (Demadex -) 50 mg PO DAILY [facility] Last Admin: 05/19/16 10:36 Dose: 50 mg - Objective Vital Signs: Vital Signs Temperature 98.1 F 05/19/16 18:20 Pulse Rate 70 05/19/16 18:20 Respiratory Rate 20 05/19/16 20:42 Blood Pressure 111/68 05/19/16 18:20 O2 Sat by Pulse Oximetry (%) 100 05/19/16 20:42 Constitutional: Yes: Calm Eyes: Yes: EOM Intact HENT: Yes: Normocephalic Neck: Yes: Trachea Midline Cardiovascular: Yes: Pulse Irregular Respiratory: Yes: CTA Bilaterally Gastrointestinal: Yes: Normal Bowel Sounds, Abdomen, Obese ...Rectal Exam: Yes: Deferred Genitourinary: Yes: WNL Breast(s): Yes: WNL Musculoskeletal: Yes: Joint Swelling, Muscle Weakness Extremities: Yes: Delayed Capillary Refill Edema: Yes Edema: LLE: 1+, RLE: 1+ Neurological: Yes: Alert, Oriented Labs: CBC, BMP 05/19/16 06:15 05/19/16 06:15 INR, PTT INR 1.20 (0.82-1.09) H 05/17/16 19:48 Problem List - Problems (1) Afib Code(s): I48.91 - UNSPECIFIED ATRIAL FIBRILLATION Qualifiers: Atrial fibrillation type: unspecified Qualified Code(s): I48.91 - Unspecified atrial fibrillation (2) CAD (coronary artery disease) Code(s): I25.10 - ATHSCL HEART DISEASE OF [place] CORONARY ARTERY W/O ANG PCTRS (3) Cellulitis of toe Code(s): L03.039 - CELLULITIS OF UNSPECIFIED TOE Qualifiers: Laterality: left Qualified Code(s): L03.032 - Cellulitis of left toe (4) Diabetes mellitus, insulin dependent (IDDM), uncontrolled Code(s): E10.65 - TYPE 1 DIABETES MELLITUS WITH HYPERGLYCEMIA Assessment/Plan Current Active Problems Afib (Acute) Chest pain (Acute) iddm uncontrolled hyperglycemia ckd pad pvd Abnormal Lab Results 05/18/16 05/19/16 05/19/16 18:25 06:15 06:15 Hgb 11.3 L Hct 33.5 L RDW 16.0 H Plt Count 132 L Neutrophils % 6.0 L D Lymphocytes % 61.0 H Monocytes % 13.0 H Basophils % 3.0 H BUN 40 H D Creatinine 1.8 H D Random Glucose 187 H D Hemoglobin A1c % 8.8 H D Calcium 8.0 L Total Protein 6.3 L Albumin 2.9 L Laboratory Results - last 24 hr 05/18/16 05/19/16 05/19/16 18:25 05:50 06:15 WBC 8.1 RBC 4.14 Hgb 11.3 L Hct 33.5 L MCV 81.0 MCHC 33.7 RDW 16.0 H Plt Count 132 L MPV 8.0 Neutrophils % 6.0 L D Lymphocytes % 61.0 H Monocytes % 13.0 H Basophils % 3.0 H Differential Comment Manual diff done Reactive Lymphocytes 17 D Sodium Potassium Chloride Carbon Dioxide Anion Gap BUN Creatinine Creat Clearance w eGFR POC Glucometer 196 Random Glucose Hemoglobin A1c % 8.8 H D Calcium Total Bilirubin AST ALT Alkaline Phosphatase Total Protein Albumin 05/19/16 05/19/16 05/19/16 06:15 11:30 17:30 WBC RBC Hgb Hct MCV MCHC RDW Plt Count MPV Neutrophils % Lymphocytes % Monocytes % Basophils % Differential Comment Reactive Lymphocytes Sodium 138 Potassium 4.5 Chloride 103 Carbon Dioxide 26 Anion Gap 9 BUN 40 H D Creatinine 1.8 H D Creat Clearance w eGFR 38.68 POC Glucometer 213 155 Random Glucose 187 H D Hemoglobin A1c % Calcium 8.0 L Total Bilirubin 0.6 AST 28 D ALT 31 Alkaline Phosphatase 109 Total Protein 6.3 L Albumin 2.9 L 05/19/16 21:00 WBC RBC Hgb Hct MCV MCHC RDW Plt Count MPV Neutrophils % Lymphocytes % Monocytes % Basophils % Differential Comment Reactive Lymphocytes Sodium Potassium Chloride Carbon Dioxide Anion Gap BUN Creatinine Creat Clearance w eGFR POC Glucometer 192 Random Glucose Hemoglobin A1c % Calcium Total Bilirubin AST ALT Alkaline Phosphatase Total Protein Albumin plan: 70/30 novolog mix 18 units bid bgm qid novolog coverage
--- NOTE | 2016-05-20 06:10 | PN ---
Progress Note, Physician - Current Medication List Current Medications: Active Medications Apixaban (Eliquis -) 5 mg PO BID [facility] Last Admin: 05/19/16 21:59 Dose: 5 mg Cholecalciferol (Vitamin D3 -) 1,000 unit PO DAILY [facility] Last Admin: 05/19/16 10:40 Dose: 1,000 unit Clopidogrel Bisulfate (Plavix -) 75 mg PO DAILY [facility] Last Admin: 05/19/16 10:38 Dose: 75 mg Cyclosporine (Sandimmune (Nf)) 100 mg PO DAILY [facility] Last Admin: 05/19/16 10:39 Dose: 100 mg Febuxostat (Uloric -) 40 mg PO DAILY [facility] Last Admin: 05/19/16 10:40 Dose: 40 mg Ferrous Sulfate (Feosol -) 325 mg PO DAILY [facility] Last Admin: 05/19/16 10:37 Dose: 325 mg Gabapentin (Neurontin -) 300 mg PO BID [facility] Last Admin: 05/19/16 21:59 Dose: 300 mg Insulin Aspart (Novolog Vial Sliding Scale -) 1 vial SQ [facility] PRN Reason: Protocol Last Admin: 05/19/16 21:59 Dose: 3 units Insulin Aspart (Novolog Mix 70/30 Vial) 18 units SQ BIDAC [facility] Meclizine HCl (Antivert -) 25 mg PO DAILY [facility] Last Admin: 05/19/16 10:36 Dose: 25 mg Metoprolol Tartrate (Lopressor -) 25 mg PO DAILY [facility] Last Admin: 05/19/16 10:39 Dose: 25 mg Non-Formulary Medication (Dulaglutide [Trulicity]) 1.5 mg SQ DAILY [facility] Potassium Chloride (K-Dur -) 20 meq PO DAILY [facility] Last Admin: 05/19/16 10:38 Dose: 20 meq Torsemide (Demadex -) 50 mg PO DAILY [facility] Last Admin: 05/19/16 10:36 Dose: 50 mg - Objective Vital Signs: Vital Signs Temperature 98.0 F 05/20/16 02:00 Pulse Rate 75 05/20/16 02:00 Respiratory Rate 20 05/20/16 02:00 Blood Pressure 131/52 05/20/16 02:00 O2 Sat by Pulse Oximetry (%) 100 05/19/16 20:42 Labs: CBC, BMP 05/19/16 06:15 05/19/16 06:15 INR, PTT INR 1.20 (0.82-1.09) H 05/17/16 19:48 Problem List - Problems (1) Afib Code(s): I48.91 - UNSPECIFIED ATRIAL FIBRILLATION Qualifiers: Atrial fibrillation type: unspecified Qualified Code(s): I48.91 - Unspecified atrial fibrillation (2) Chest pain Code(s): R07.9 - CHEST PAIN, UNSPECIFIED Qualifiers: Chest pain type: unspecified Qualified Code(s): R07.9 - Chest pain, unspecified (3) CHF (congestive heart failure) Code(s): I50.9 - HEART FAILURE, UNSPECIFIED (4) Diabetes Code(s): E11.9 - TYPE 2 DIABETES MELLITUS WITHOUT COMPLICATIONS Qualifiers: Diabetes mellitus type: type 2 Diabetes mellitus complication detail: with foot ulcer (5) HTN (hypertension) Code(s): I10 - ESSENTIAL (PRIMARY) HYPERTENSION (6) ZHANG (acute kidney injury) Code(s): N17.9 - ACUTE KIDNEY FAILURE, UNSPECIFIED Assessment/Plan The patient is a 61 year old male, with a significant past medical history of hypertension, hyperlipidemia, diabetes, coronary artery disease s/p stents x 2, atrial fibrillation (on Eliquis), T cell lymphoma and obesity, who presents to the emergency department with sudden onset of chest pain this afternoon at approximately 4PM. The patient states that he was in his usual state of health earlier today. At approximately 4PM, the patient was sitting down eating when he suddenly began experiencing chest tightness with associated diaphoresis, nausea and shortness of breath which lasted a couple of minutes in length before resolving. A short time later, the patient experienced a second episode of similar chest pain. The patient's family called the patient's sewer contractor ( Dr. Toribio) who advised they bring him to the ED for evaluation. The patient denies fever, chills, cough, vomiting or any recent illnesses. The patients family are at the bedside. Allergies: None reported. Past Surgical History: Stents x 2; Foot Surgery. Social History: Non smoker. Denies alcohol or drug use. PCP: Dr. Neil Senior Merchandiser: Dr. Toribio Oncologist: Dr. Guzman (1) Afib Code(s): I48.91 - UNSPECIFIED ATRIAL FIBRILLATION Qualifiers: Atrial fibrillation type: unspecified Qualified Code(s): I48.91 - Unspecified atrial fibrillation noac cardio consulted tele (2) Chest pain Code(s): R07.9 - CHEST PAIN, UNSPECIFIED Qualifiers: Chest pain type: unspecified Qualified Code(s): R07.9 - Chest pain, unspecified trop neg x 2 cardio consulted (3) CHF (congestive heart failure) Code(s): I50.9 - HEART FAILURE, UNSPECIFIED Qualifiers: Qualified Code(s): I50.32 - Chronic diastolic (congestive) heart failure cxr shows congestion on demadex iv lasix cr improved (4) Diabetes Code(s): E11.9 - TYPE 2 DIABETES MELLITUS WITHOUT COMPLICATIONS Qualifiers: Diabetes mellitus type: type 2 Diabetes mellitus complication detail: with foot ulcer Qualified Code(s): E11.621 - Type 2 diabetes mellitus with foot ulcer; L97.509 - Non-pressure chronic ulcer of other part of unspecified foot with unspecified severity; Z79.4 - assisted (current) use of insulin improved bgm iss endo (5) HTN (hypertension) Code(s): I10 - ESSENTIAL (PRIMARY) HYPERTENSION (6) ZHANG (acute kidney injury) Code(s): N17.9 - ACUTE KIDNEY FAILURE, UNSPECIFIED improved on iv lasix renal DISCHARGE ON HOLD ENVIRONMENTAL SERVICES DIRECTOR
[2016-05-20 07:18] LABS: MCH 27.5 pg (25.7-33.7); MCHC 33.8 g/dl (32.0-35.9); MEAN CELL VOLUME 81.3 fl (80-96); MEAN PLT VOLUME 8.1 fl (7.5-11.1); PLATELET COUNT 146 K/MM3 (134-434); RDW 16.1 % (11.9-15.9); WHITE BLOOD COUNT 10.1 K/mm3 (4.0-10.0)
[2016-05-20 07:51] LABS: ALBUMIN 3.2 g/dl (3.4-5.0); BILIRUBIN,TOTAL 0.6 mg/dL (0.2-1.0); CALCIUM 8.1 mg/dL (8.5-10.1); COCKROFT - GAULT 119.14; CREATININE 1.6 mg/dL (0.7-1.3); TOT PROT 6.7 g/dl (6.4-8.2)
[2016-05-20] MEDS: INSULIN SLIDING SCALE (NOVOLOG) 1 VIAL SQ SCH ×4 (09:00→21:41)
[2016-05-20] MEDS: INSULIN (NOVOLOG MIX 70/30) 100 UNITS/ML MDV SQ SCH ×2 (09:00→18:26)
[2016-05-20] MEDS ORDERED: PT OWN MED DRAWER 7, Y5N ONE (10:30)
[2016-05-20] MEDS: cycloSPORINE 100 MG CAPSULE PO SCH (10:35)
[2016-05-20] MEDS: FERROUS SO4 325 MG TABLET (FP) PO SCH (10:35)
[2016-05-20] MEDS: MECLIZINE HCL 25 MG TABLET (FP) PO SCH (10:36)
[2016-05-20] MEDS: GABAPENTIN 300 MG CAPSULE (FP) PO SCH ×2 (10:36→21:32)
[2016-05-20] MEDS: POTASSIUM CHLORIDE TABS 20 MEQ TABLET.ER (FP) PO SCH (10:36)
[2016-05-20] MEDS: CLOPIDOGREL BISULFATE 75 MG TABLET (FP) PO SCH (10:36)
[2016-05-20] MEDS: APIXABAN 5 MG TABLET PO SCH ×2 (10:36→21:32)
[2016-05-20] MEDS: TORSEMIDE 100 MG TABLET PO SCH (10:36)
[2016-05-20] MEDS: CHOLECALCIFEROL (VITAMIN D3) 1,000 UNIT TABLET (FP) PO SCH (10:36)
[2016-05-20] MEDS: METOPROLOL TARTRATE 25 MG TABLET (FP) PO SCH (10:37)
[2016-05-20 12:16] LABS: PLATELET ESTIMATE ADEQUATE (NORMAL)
--- NOTE | 2016-05-20 12:58 | PN ---
Progress Note, Physician History of Present Illness: Pt seen and examined at bedside. He is awake and alert. He denies shortness of breath. He denies chest pain or palpitations. - Current Medication List Current Medications: Active Medications Apixaban (Eliquis -) 5 mg PO BID [facility] Last Admin: 05/20/16 10:36 Dose: 5 mg Cholecalciferol (Vitamin D3 -) 1,000 unit PO DAILY [facility] Last Admin: 05/20/16 10:36 Dose: 1,000 unit Clopidogrel Bisulfate (Plavix -) 75 mg PO DAILY [facility] Last Admin: 05/20/16 10:36 Dose: 75 mg Cyclosporine (Sandimmune (Nf)) 100 mg PO DAILY [facility] Last Admin: 05/20/16 10:35 Dose: 100 mg Febuxostat (Uloric -) 40 mg PO DAILY [facility] Last Admin: 05/20/16 10:36 Dose: 40 mg Ferrous Sulfate (Feosol -) 325 mg PO DAILY [facility] Last Admin: 05/20/16 10:35 Dose: 325 mg Gabapentin (Neurontin -) 300 mg PO BID [facility] Last Admin: 05/20/16 10:36 Dose: 300 mg Insulin Aspart (Novolog Vial Sliding Scale -) 1 vial SQ ACHS [facility] PRN Reason: Protocol Last Admin: 05/20/16 11:41 Dose: 5 units Insulin Aspart (Novolog Mix 70/30 Vial) 18 units SQ BIDAC [facility] Last Admin: 05/20/16 09:00 Dose: Not Given Meclizine HCl (Antivert -) 25 mg PO DAILY [facility] Last Admin: 05/20/16 10:36 Dose: 25 mg Metoprolol Tartrate (Lopressor -) 25 mg PO DAILY [facility] Last Admin: 05/20/16 10:37 Dose: 25 mg Non-Formulary Medication (Dulaglutide [Trulicity]) 1.5 mg SQ DAILY [facility] Potassium Chloride (K-Dur -) 20 meq PO DAILY [facility] Last Admin: 05/20/16 10:36 Dose: 20 meq Torsemide (Demadex -) 50 mg PO DAILY [facility] Last Admin: 05/20/16 10:36 Dose: 50 mg - Objective Vital Signs: Vital Signs Temperature 98.1 F 05/20/16 10:35 Pulse Rate 75 05/20/16 10:35 Respiratory Rate 20 05/20/16 10:35 Blood Pressure 138/75 05/20/16 10:35 O2 Sat by Pulse Oximetry (%) 100 05/19/16 20:42 Constitutional: Yes: Calm Eyes: Yes: Conjunctiva Clear HENT: Yes: Atraumatic Neck: Yes: Supple Cardiovascular: Yes: S1, S2 Respiratory: Yes: CTA Bilaterally Gastrointestinal: Yes: Soft, Abdomen, Obese Genitourinary: Yes: WNL Musculoskeletal: Yes: WNL Edema: Yes Edema: LLE: 1+, RLE: 1+ Neurological: Yes: Oriented Psychiatric: Yes: Oriented Labs: CBC, BMP 05/20/16 05:40 05/20/16 05:40 INR, PTT INR 1.20 (0.82-1.09) H 05/17/16 19:48 Problem List - Problems (1) Chest pain Code(s): R07.9 - CHEST PAIN, UNSPECIFIED Qualifiers: Chest pain type: unspecified Qualified Code(s): R07.9 - Chest pain, unspecified (2) CHF (congestive heart failure) Code(s): I50.9 - HEART FAILURE, UNSPECIFIED (3) Diabetes Code(s): E11.9 - TYPE 2 DIABETES MELLITUS WITHOUT COMPLICATIONS Qualifiers: Diabetes mellitus type: type 2 Diabetes mellitus complication detail: with foot ulcer (4) CKD (chronic kidney disease) Code(s): N18.9 - CHRONIC KIDNEY DISEASE, UNSPECIFIED Assessment/Plan Current Medications Generic Name Dose Route Start Last Admin Trade Name Freq PRN Reason Stop Dose Admin Apixaban 5 mg 05/18/16 10:00 05/20/16 10:36 Eliquis - PO 5 mg BID [facility] Administration Cholecalciferol 1,000 unit 05/18/16 10:00 05/20/16 10:36 Vitamin D3 - PO 1,000 unit DAILY [facility] Administration Clopidogrel Bisulfate 75 mg 05/18/16 10:00 05/20/16 10:36 Plavix - PO 75 mg DAILY [facility] Administration Cyclosporine 100 mg 05/18/16 10:00 05/20/16 10:35 Sandimmune (Nf) PO 100 mg DAILY [facility] Administration Febuxostat 40 mg 05/18/16 10:00 05/20/16 10:36 Uloric - PO 40 mg DAILY [facility] Administration Ferrous Sulfate 325 mg 05/18/16 10:00 05/20/16 10:35 Feosol - PO 325 mg DAILY [facility] Administration Gabapentin 300 mg 05/18/16 10:00 05/20/16 10:36 Neurontin - PO 300 mg BID [facility] Administration Insulin Aspart 1 vial 05/18/16 18:06 05/20/16 11:41 Novolog Vial Sliding Scale - SQ 5 units ACHS [facility] Administration Protocol Insulin Aspart 18 units 05/19/16 21:34 05/20/16 09:00 Novolog Mix 70/30 Vial SQ Not Given BIDAC [facility] Meclizine HCl 25 mg 05/18/16 10:00 05/20/16 10:36 Antivert - PO 25 mg DAILY [facility] Administration Metoprolol Tartrate 25 mg 05/18/16 10:00 05/20/16 10:37 Lopressor - PO 25 mg DAILY [facility] Administration Non-Formulary Medication 1.5 mg 05/18/16 10:00 Dulaglutide [Trulicity] SQ DAILY [facility] Potassium Chloride 20 meq 05/18/16 10:00 05/20/16 10:36 K-Dur - PO 20 meq DAILY [facility] Administration Torsemide 50 mg 05/18/16 10:00 05/20/16 10:36 Demadex - PO 50 mg DAILY [facility] Administration Impression 1. CKD with acute component 2. chest pain 3. cellulitis 4. morbid obesty 5. DM 6. PVD 7. Gout 8. Large cell granular leukemia/lymphoma 9. anemia Plan - renal function is stabilizing - check UA - cont workup per cardiology - pt follows up with me as outpt - avoid nephrotoxins
--- NOTE | 2016-05-20 18:12 | PN ---
Progress Note (short form) - Note Progress Note: CC: cp S: no further recurrence of cp, no sob, palps, dizziness. Current Medications Apixaban (Eliquis -) 5 mg PO BID [facility] Last Admin: 05/20/16 10:36 Dose: 5 mg Cholecalciferol (Vitamin D3 -) 1,000 unit PO DAILY [facility] Last Admin: 05/20/16 10:36 Dose: 1,000 unit Clopidogrel Bisulfate (Plavix -) 75 mg PO DAILY [facility] Last Admin: 05/20/16 10:36 Dose: 75 mg Cyclosporine (Sandimmune (Nf)) 100 mg PO DAILY [facility] Last Admin: 05/20/16 10:35 Dose: 100 mg Febuxostat (Uloric -) 40 mg PO DAILY [facility] Last Admin: 05/20/16 10:36 Dose: 40 mg Ferrous Sulfate (Feosol -) 325 mg PO DAILY [facility] Last Admin: 05/20/16 10:35 Dose: 325 mg Gabapentin (Neurontin -) 300 mg PO BID [facility] Last Admin: 05/20/16 10:36 Dose: 300 mg Insulin Aspart (Novolog Vial Sliding Scale -) 1 vial SQ [facility] PRN Reason: Protocol Last Admin: 05/20/16 11:41 Dose: 5 units Insulin Aspart (Novolog Mix 70/30 Vial) 18 units SQ BIDAC [facility] Last Admin: 05/20/16 09:00 Dose: Not Given Meclizine HCl (Antivert -) 25 mg PO DAILY [facility] Last Admin: 05/20/16 10:36 Dose: 25 mg Metoprolol Tartrate (Lopressor -) 25 mg PO DAILY [facility] Last Admin: 05/20/16 10:37 Dose: 25 mg Non-Formulary Medication (Dulaglutide [Trulicity]) 1.5 mg SQ DAILY [facility] Potassium Chloride (K-Dur -) 20 meq PO DAILY [facility] Last Admin: 05/20/16 10:36 Dose: 20 meq Torsemide (Demadex -) 50 mg PO DAILY [facility] Last Admin: 05/20/16 10:36 Dose: 50 mg Vital Signs - 24 hr 05/19/16 05/19/16 05/19/16 18:20 20:42 22:00 Temperature 98.1 F 98.1 F Pulse Rate 70 73 Respiratory 20 20 20 Rate Blood Pressure 111/68 146/73 O2 Sat by Pulse 100 Oximetry (%) 05/20/16 05/20/16 05/20/16 02:00 06:00 10:35 Temperature 98.0 F 98.6 F 98.1 F Pulse Rate 75 72 75 Respiratory 20 20 20 Rate Blood Pressure 131/52 140/66 138/75 O2 Sat by Pulse Oximetry (%) 05/20/16 05/20/16 13:30 17:54 Temperature 98.2 F 98.2 F Pulse Rate 69 72 Respiratory 20 18 Rate Blood Pressure 136/75 130/72 O2 Sat by Pulse Oximetry (%) Intake & Output 05/18/16 05/19/16 05/20/16 05/21/16 07:59 07:59 07:59 07:59 Intake Total 630 530 860 Balance 630 530 860 Weight 375 lb 4 oz 378 lb 4 oz 378 lb 4 oz Constitutional: Yes: No Distress, Calm Eyes: Yes: WNL HENT: Yes: WNL Neck: Yes: WNL Cardiovascular: Yes: Regular Rate and Rhythm Respiratory: Yes: WNL Gastrointestinal: Yes: Abdomen, Obese Edema: Yes Edema: LLE: 1+, RLE: 1+ Labs: CBC, BMP 05/20/16 05:40 05/20/16 05:40 tele: SB/SR. possible intermittent afib, p waves not always well defined. Assessment/Plan 61 yo with known CAD and prior PCI admitted now with atypical chest pain episode after eating. 1) Chest pain -prior SANGITA x 2 to prox and dist Lcx 2012; -no residual obstructive dz then (30-50% LAD, mild RCA) -Cardiac enzymes are negative - Consider GI evluation - -Atypical symptoms, non -exertional and following food intake. However, patient very sedentary and difficult to assess for exertional symptoms. Given prior hx will move forward with stress testing. Stress testing will be a challenge on this obese patient, interpretation may be difficult. If no high- risk lesions, ok to follow up with outpatient customer success representative Dr. Toribio regarding need for more invasive testing. 2) HFpEF: well-compensated, no sob; LE edema stable, improved. renal function slightly worsened with iv lasix. continue po torsemide Echo 03/27: nl LV/EF; nl RV; valve fxn WNL 3) Afib -Now in NSR, bradycardia resolved -Hold BB for HR <50 Continue Eliquis for Afib and plavix (for his prior PCI) HTN - reasonable control, con't current meds CKD - renal following.
[2016-05-20] MEDS ORDERED: INSULIN (NOVOLOG MIX 70/30) 100 UNITS/ML MDV SQ ONE (18:21)
[2016-05-20 18:22] LABS: URINE APPEARANCE CLEAR; URINE BILIRUBIN NEGATIVE (NEGATIVE); URINE BLOOD NEGATIVE (NEGATIVE); URINE COLOR STRAW; URINE GLUCOSE (UA) NEGATIVE (NEGATIVE); URINE KETONE NEGATIVE (NEGATIVE); URINE NITRITE NEGATIVE (NEGATIVE); URINE PROTEIN NEGATIVE (NEGATIVE); URINE UROBILINOGEN NEGATIVE E.U./dl (0.2-1.0)
[2016-05-20 18:36] LABS: URINE LEUK ESTERASE TRACE (NEGATIVE)
[2016-05-20 19:28] LABS: URINE HYALINE CAST 1 /lpf; URINE MUCUS RARE; URINE RBC <1 /hpf (0-3); URINE WBC 1 /hpf (3-5)
--- NOTE | 2016-05-20 21:37 | PN ---
[id number] (Eliquis -) 5 mg PO BID [facility] Last Admin: 05/20/16 21:32 Dose: 5 mg Cholecalciferol (Vitamin D3 -) 1,000 unit PO DAILY [facility] Last Admin: 05/20/16 10:36 Dose: 1,000 unit Clopidogrel Bisulfate (Plavix -) 75 mg PO DAILY [facility] Last Admin: 05/20/16 10:36 Dose: 75 mg Cyclosporine (Sandimmune (Nf)) 100 mg PO DAILY [facility] Last Admin: 05/20/16 10:35 Dose: 100 mg Febuxostat (Uloric -) 40 mg PO DAILY [facility] Last Admin: 05/20/16 10:36 Dose: 40 mg Ferrous Sulfate (Feosol -) 325 mg PO DAILY [facility] Last Admin: 05/20/16 10:35 Dose: 325 mg Gabapentin (Neurontin -) 300 mg PO BID [facility] Last Admin: 05/20/16 21:32 Dose: 300 mg Insulin Aspart (Novolog Vial Sliding Scale -) 1 vial SQ [facility] PRN Reason: Protocol Last Admin: 05/20/16 18:27 Dose: 3 units Insulin Aspart (Novolog Mix 70/30 Vial) 18 units SQ BIDAC [facility] Last Admin: 05/20/16 18:26 Dose: 18 units Meclizine HCl (Antivert -) 25 mg PO DAILY [facility] Last Admin: 05/20/16 10:36 Dose: 25 mg Metoprolol Tartrate (Lopressor -) 25 mg PO DAILY [facility] Last Admin: 05/20/16 10:37 Dose: 25 mg Non-Formulary Medication (Dulaglutide [Trulicity]) 1.5 mg SQ DAILY [facility] Potassium Chloride (K-Dur -) 20 meq PO DAILY [facility] Last Admin: 05/20/16 10:36 Dose: 20 meq Torsemide (Demadex -) 50 mg PO DAILY [facility] Last Admin: 05/20/16 10:36 Dose: 50 mg - Objective Vital Signs: Vital Signs Temperature 98.2 F 05/20/16 17:54 Pulse Rate 72 05/20/16 17:54 Respiratory Rate 18 05/20/16 17:54 Blood Pressure 130/72 05/20/16 17:54 O2 Sat by Pulse Oximetry (%) 100 05/20/16 09:00 Neck: Yes: WNL Cardiovascular: Yes: WNL Respiratory: Yes: WNL Gastrointestinal: Yes: WNL Labs: CBC, BMP 05/20/16 05:40 05/20/16 05:40 INR, PTT INR 1.20 (0.82-1.09) H 05/17/16 19:48 Problem List - Problems (1) Afib Code(s): I48.91 - UNSPECIFIED ATRIAL FIBRILLATION Qualifiers: Atrial fibrillation type: unspecified Qualified Code(s): I48.91 - Unspecified atrial fibrillation (2) Chest pain Code(s): R07.9 - CHEST PAIN, UNSPECIFIED Qualifiers: Chest pain type: unspecified Qualified Code(s): R07.9 - Chest pain, unspecified (3) CHF (congestive heart failure) Code(s): I50.9 - HEART FAILURE, UNSPECIFIED (4) Diabetes Code(s): E11.9 - TYPE 2 DIABETES MELLITUS WITHOUT COMPLICATIONS Qualifiers: Diabetes mellitus type: type 2 Diabetes mellitus complication detail: with foot ulcer (5) HTN (hypertension) Code(s): I10 - ESSENTIAL (PRIMARY) HYPERTENSION (6) ZHANG (acute kidney injury) Code(s): N17.9 - ACUTE KIDNEY FAILURE, UNSPECIFIED (7) Gout Code(s): M10.9 - GOUT, UNSPECIFIED Qualifiers: Gout site: foot Assessment/Plan The patient is a 61 year old male, with a significant past medical history of hypertension, hyperlipidemia, diabetes, coronary artery disease s/p stents x 2, atrial fibrillation (on Eliquis), T cell lymphoma and obesity, who presents to the emergency department with sudden onset of chest pain this afternoon at approximately 4PM. The patient states that he was in his usual state of health earlier today. At approximately 4PM, the patient was sitting down eating when he suddenly began experiencing chest tightness with associated diaphoresis, nausea and shortness of breath which lasted a couple of minutes in length before resolving. A short time later, the patient experienced a second episode of similar chest pain. The patient's family called the patient's cook supervisor ( Dr. Toribio) who advised they bring him to the ED for evaluation. The patient denies fever, chills, cough, vomiting or any recent illnesses. The patients family are at the bedside. Allergies: None reported. Past Surgical History: Stents x 2; Foot Surgery. Social History: Non smoker. Denies alcohol or drug use. PCP: Dr. Neil Manager Of Internal: Dr. Toribio Oncologist: Dr. Guzman (1) Afib Code(s): I48.91 - UNSPECIFIED ATRIAL FIBRILLATION Qualifiers: Atrial fibrillation type: unspecified Qualified Code(s): I48.91 - Unspecified atrial fibrillation noac cardio consulted tele (2) Chest pain Code(s): R07.9 - CHEST PAIN, UNSPECIFIED Qualifiers: Chest pain type: unspecified Qualified Code(s): R07.9 - Chest pain, unspecified planned stress test cardio consulted (3) CHF (congestive heart failure) Code(s): I50.9 - HEART FAILURE, UNSPECIFIED Qualifiers: Qualified Code(s): I50.32 - Chronic diastolic (congestive) heart failure cxr shows congestion on demadex iv lasix cr improved (4) Diabetes Code(s): E11.9 - TYPE 2 DIABETES MELLITUS WITHOUT COMPLICATIONS Qualifiers: Diabetes mellitus type: type 2 Diabetes mellitus complication detail: with foot ulcer Qualified Code(s): E11.621 - Type 2 diabetes mellitus with foot ulcer; L97.509 - Non-pressure chronic ulcer of other part of unspecified foot with unspecified severity; Z79.4 - intermediate frame tender (current) use of insulin improved bgm iss endo consulted (5) HTN (hypertension) Code(s): I10 - ESSENTIAL (PRIMARY) HYPERTENSION (6) ZHANG (acute kidney injury) Code(s): N17.9 - ACUTE KIDNEY FAILURE, UNSPECIFIED improved on iv lasix renal on case (7) Gout Code(s): M10.9 - GOUT, UNSPECIFIED Qualifiers: Gout site: foot c/o ae gout avoid nephrotoxin rx apap/prednisone INSTRUMENT PROCESSING TECH FM
[2016-05-20] MEDS ORDERED: DOCUSATE SODIUM 100 MG CAPSULE (FP) PO PRN (21:44)
[2016-05-20] MEDS ORDERED: morphine CARPU-JECT 2 MG/1 ML DISP.SYRIN IVPUSH PRN (21:44)
[2016-05-20] MEDS: ACETAMINOPHEN 325 MG TABLET (FP) PO PRN (21:49)
[2016-05-21 02:06] VITALS: TEMP 98
[2016-05-21] MEDS: predniSONE 20 MG TABLET (UD) PO SCH ×2 (04:07→09:53)
[2016-05-21] MEDS: INSULIN (NOVOLOG MIX 70/30) 100 UNITS/ML MDV SQ SCH (06:34)
[2016-05-21] MEDS: INSULIN SLIDING SCALE (NOVOLOG) 1 VIAL SQ SCH (06:34)
[2016-05-21] MEDS: ACETAMINOPHEN 325 MG TABLET (FP) PO PRN (06:34)
[2016-05-21 07:17] LABS: MCH 27.1 pg (25.7-33.7); MCHC 33.2 g/dl (32.0-35.9); MEAN CELL VOLUME 81.7 fl (80-96); PLATELET COUNT 129 K/MM3 (134-434); RDW 15.8 % (11.9-15.9); WHITE BLOOD COUNT 8.5 K/mm3 (4.0-10.0)
[2016-05-21 07:30] LABS: ALBUMIN 2.9 g/dl (3.4-5.0); BILIRUBIN,TOTAL 0.6 mg/dL (0.2-1.0); CALCIUM 7.8 mg/dL (8.5-10.1); COCKROFT - GAULT 79.22; CREATININE 1.6 mg/dL (0.7-1.3); TOT PROT 6.3 g/dl (6.4-8.2)
--- NOTE | 2016-05-21 07:53 | PN ---
[id number] (Tylenol -) 650 mg PO Q6H PRN PRN Reason: FEVER OR PAIN Last Admin: 05/21/16 06:34 Dose: 650 mg Apixaban (Eliquis -) 5 mg PO BID [facility] Last Admin: 05/20/16 21:32 Dose: 5 mg Cholecalciferol (Vitamin D3 -) 1,000 unit PO DAILY [facility] Last Admin: 05/20/16 10:36 Dose: 1,000 unit Clopidogrel Bisulfate (Plavix -) 75 mg PO DAILY [facility] Last Admin: 05/20/16 10:36 Dose: 75 mg Cyclosporine (Sandimmune (Nf)) 100 mg PO DAILY [facility] Last Admin: 05/20/16 10:35 Dose: 100 mg Docusate Sodium (Colace -) 100 mg PO BID [facility] PRN Reason: CONSTIPATION Febuxostat (Uloric -) 40 mg PO DAILY [facility] Last Admin: 05/20/16 10:36 Dose: 40 mg Ferrous Sulfate (Feosol -) 325 mg PO DAILY [facility] Last Admin: 05/20/16 10:35 Dose: 325 mg Gabapentin (Neurontin -) 300 mg PO BID [facility] Last Admin: 05/20/16 21:32 Dose: 300 mg Insulin Aspart (Novolog Vial Sliding Scale -) 1 vial SQ ACHS [facility] PRN Reason: Protocol Last Admin: 05/21/16 06:34 Dose: Not Given Insulin Aspart (Novolog Mix 70/30 Vial) 18 units SQ BIDAC [facility] Last Admin: 05/21/16 06:34 Dose: Not Given Meclizine HCl (Antivert -) 25 mg PO DAILY [facility] Last Admin: 05/20/16 10:36 Dose: 25 mg Metoprolol Tartrate (Lopressor -) 25 mg PO DAILY [facility] Last Admin: 05/20/16 10:37 Dose: 25 mg Morphine Sulfate (Morphine Injection -) 1 mg IVPUSH Q4H PRN PRN Reason: PAIN Non-Formulary Medication (Dulaglutide [Trulicity]) 1.5 mg SQ DAILY [facility] Potassium Chloride (K-Dur -) 20 meq PO DAILY [facility] Last Admin: 05/20/16 10:36 Dose: 20 meq Prednisone (Deltasone -) 40 mg PO DAILY [facility] Stop: 05/23/16 21:44 Last Admin: 05/21/16 04:07 Dose: Not Given Torsemide (Demadex -) 50 mg PO DAILY [facility] Last Admin: 05/20/16 10:36 Dose: 50 mg - Objective Vital Signs: Vital Signs Temperature 98 F 05/21/16 05:58 Pulse Rate 69 05/21/16 05:58 Respiratory Rate 22 05/21/16 05:58 Blood Pressure 120/68 05/21/16 05:58 O2 Sat by Pulse Oximetry (%) 98 05/20/16 22:00 Neck: Yes: WNL Cardiovascular: Yes: WNL Respiratory: Yes: WNL Gastrointestinal: Yes: WNL Labs: CBC, BMP 05/21/16 05:35 05/21/16 05:35 INR, PTT INR 1.20 (0.82-1.09) H 05/17/16 19:48 Problem List - Problems (1) Afib Code(s): I48.91 - UNSPECIFIED ATRIAL FIBRILLATION Qualifiers: Atrial fibrillation type: unspecified Qualified Code(s): I48.91 - Unspecified atrial fibrillation (2) Chest pain Code(s): R07.9 - CHEST PAIN, UNSPECIFIED Qualifiers: Chest pain type: unspecified Qualified Code(s): R07.9 - Chest pain, unspecified (3) CHF (congestive heart failure) Code(s): I50.9 - HEART FAILURE, UNSPECIFIED (4) Diabetes Code(s): E11.9 - TYPE 2 DIABETES MELLITUS WITHOUT COMPLICATIONS Qualifiers: Diabetes mellitus type: type 2 Diabetes mellitus complication detail: with foot ulcer (5) HTN (hypertension) Code(s): I10 - ESSENTIAL (PRIMARY) HYPERTENSION (6) ZHANG (acute kidney injury) Code(s): N17.9 - ACUTE KIDNEY FAILURE, UNSPECIFIED (7) Gout Code(s): M10.9 - GOUT, UNSPECIFIED Qualifiers: Gout site: foot
[2016-05-21 08:31] VITALS: BP 148/70; PULSE 67
[2016-05-21 09:07] LABS: PLATELET ESTIMATE SLT DECREASED (NORMAL)
[2016-05-21] MEDS: MECLIZINE HCL 25 MG TABLET (FP) PO SCH (09:53)
[2016-05-21] MEDS: METOPROLOL TARTRATE 25 MG TABLET (FP) PO SCH (09:53)
[2016-05-21] MEDS: cycloSPORINE 100 MG CAPSULE PO SCH (09:53)
[2016-05-21] MEDS: CHOLECALCIFEROL (VITAMIN D3) 1,000 UNIT TABLET (FP) PO SCH (09:53)
[2016-05-21] MEDS: CLOPIDOGREL BISULFATE 75 MG TABLET (FP) PO SCH (09:53)
[2016-05-21] MEDS: FERROUS SO4 325 MG TABLET (FP) PO SCH (09:53)
[2016-05-21] MEDS: GABAPENTIN 300 MG CAPSULE (FP) PO SCH (09:53)
[2016-05-21] MEDS: POTASSIUM CHLORIDE TABS 20 MEQ TABLET.ER (FP) PO SCH (09:53)
[2016-05-21] MEDS: APIXABAN 5 MG TABLET PO SCH (09:53)
[2016-05-21] MEDS: TORSEMIDE 100 MG TABLET PO SCH (09:54)
== END 2016-05-21 12:30 | disposition home or self-care (01) | DRG 309 ==
LOC: JER 17:06 → JERBED 20:05 → J4S 22:34
PROVIDERS: ADMIT Family Medicine; ATTEND Family Medicine
DX: I48.91 Unspecified atrial fibrillation (principal); Z68.43 Body mass index [BMI] 50.0-59.9, adult; I13.0 Hypertensive heart and chronic kidney disease with heart failure and stage 1 through stage 4 chronic kidney disease, or unspecified chronic kidney disease; N17.9 Acute kidney failure, unspecified; E78.5 Hyperlipidemia, unspecified; Z98.61 Coronary angioplasty status; M10.9 Gout, unspecified; Z79.4 Long term (current) use of insulin; E66.01 Morbid (severe) obesity due to excess calories; I25.119 Atherosclerotic heart disease of native coronary artery with unspecified angina pectoris; E11.22 Type 2 diabetes mellitus with diabetic chronic kidney disease; E11.65 Type 2 diabetes mellitus with hyperglycemia; N18.9 Chronic kidney disease, unspecified; I50.9 Heart failure, unspecified; R07.89 Other chest pain; R00.1 Bradycardia, unspecified; K21.9 Gastro-esophageal reflux disease without esophagitis
CPT/HCPCS: 36415; 71010-TC; 80053; 80061; 81003; 81015; 82550; 82570; 83036; 83721; 84484; 84540; 84550; 85025; 85610; 93005; 93010; 99284-25; J7502

== ENCOUNTER 2016-07-23 11:46 | Inpatient (IN) | payer OTHER ==
--- NOTE | 2016-07-23 11:57 | PDOC ---
History of Present Illness <Justine Bal - Last Filed: 07/23/16 15:06> - General History Source: Patient Exam Limitations: No Limitations - History of Present Illness Initial Comments: 61 yo M history obesity, CAD, DM, HTN, afib sent by Dr. Neil's office for symptomatic bradycardia. He states that he has been feeling lightheaded for the past few days, went to see his doctor. When he arrived at his appointment, his heart rate was 30 with a blood pressure of 90/60. Sent for evaluation. He c/o lightheadedness, worse with standing up and exertion, better with rest. Currently asymptomatic. No recent cp, SOB, diaphoresis, N/V. <Annette Hargrove - Last Filed: 07/23/16 16:06> - General Chief Complaint: Lightheaded Stated Complaint: PCP SENT Time Seen by Provider: 07/23/16 11:52 Past History <Justine Bal - Last Filed: 07/23/16 15:06> - Past Medical History Anemia: No Cancer: Yes (Yes; leukemia) Cardiac Disorders: Yes (2 cardiac stents; AFIB) CHF: Yes Diabetes: Yes GI Disorders: No HTN: Yes Hypercholesterolemia: Yes - Surgical History Cardiac Surgery: Yes (stents) Orthopedic Surgery: Yes (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) - Immunization History Immunization Up to Date: No - Psycho/Social/Smoking Cessation Hx Anxiety: No Suicidal Ideation: No Smoking Status: Yes Smoking History: Never smoked Have you smoked in the past 12 months: No Number of Cigarettes Smoked Daily: 0 Hx Alcohol Use: No Drug/Substance Use Hx: No Substance Use Type: None Hx Substance Use Treatment: No <Annette Hargrove - Last Filed: 07/23/16 16:06> - Past Medical History Allergies/Adverse Reactions: Allergies Allergy/AdvReac Type Severity Reaction Status Date / Time No Known Drug Allergies Allergy Verified 07/23/16 11:51 Home Medications: Ambulatory Orders Cholecalciferol (Vitamin D3) [Vitamin D3 -] 1,000 unit PO DAILY 05/17/16 Clopidogrel Bisulfate [Plavix -] 75 mg PO DAILY 05/17/16 Cyclosporine [Sandimmune] 100 mg PO DAILY 05/17/16 Dulaglutide [Trulicity] 1.5 mg SQ WEEKLY 05/17/16 Febuxostat [Uloric -] 80 mg PO DAILY 05/17/16 Ferrous Sulfate [Feosol] 325 mg PO DAILY 05/17/16 Gabapentin 300 mg PO BID 05/17/16 Magnesium Oxide [Magnesium] 400 mg PO DAILY 05/17/16 Metoprolol Tartrate [Lopressor -] 25 mg PO DAILY 05/17/16 Potassium Chloride [K-Dur -] 20 meq PO DAILY 05/17/16 Torsemide [Demadex -] 50 mg PO DAILY 05/17/16 Apixaban [Eliquis -] 5 mg PO DAILY 07/23/16 Atorvastatin Ca [Lipitor] 80 mg PO DAILY 07/23/16 Cetirizine HCl [Zyrtec -] 10 mg PO HS 07/23/16 Insulin (Novolog 70/30) [Novolog Mix 70/30 Flexpen -] 30 units SQ BIDAC Valsartan [Diovan] 320 mg PO DAILY 07/23/16 Review of Systems - Review of Systems Able to Perform ROS?: Yes Comments:: GENERAL/CONSTITUTIONAL: No fever or chills. +Weakness. HEAD, EYES, EARS, NOSE AND THROAT: No change in vision. No ear pain or discharge. No sore throat. CARDIOVASCULAR: No chest pain or shortness of breath. RESPIRATORY: No cough, wheezing, or hemoptysis. GASTROINTESTINAL: No nausea, vomiting, diarrhea or constipation. GENITOURINARY: No dysuria, frequency, or change in urination. MUSCULOSKELETAL: No joint or muscle swelling or pain. No neck or back pain. SKIN: No rash NEUROLOGIC: No headache, vertigo, loss of consciousness, or change in strength/ sensation. ENDOCRINE: No increased thirst. No abnormal weight change. HEMATOLOGIC/LYMPHATIC: No anemia, easy bleeding, or history of blood clots. ALLERGIC/IMMUNOLOGIC: No hives or skin allergy. <Annette Hargrove - Last Filed: 07/23/16 16:06> *Physical Exam - Vital Signs Last Vital Signs Temp Pulse Resp BP Pulse Ox 97.7 F 46 L 18 140/98 97 07/23/16 11:47 07/23/16 11:47 07/23/16 11:47 07/23/16 11:47 07/23/16 11:47 <Justine Bal - Last Filed: 07/23/16 15:06> - Vital Signs Last Vital Signs Temp Pulse Resp BP Pulse Ox 97.7 F 46 L 18 140/98 97 07/23/16 11:47 07/23/16 11:47 07/23/16 11:47 07/23/16 11:47 07/23/16 11:47 - Physical Exam Comments: GENERAL: Awake, alert, and fully oriented, in no acute distress. Morbidly obese. HEAD: No signs of trauma EYES: PERRLA, EOMI, sclera anicteric, conjunctiva clear ENT: Auricles normal inspection, hearing grossly normal, nares patent, oropharynx clear without exudates. Moist mucosa NECK: Normal ROM, supple, no lymphadenopathy, JVD, or masses LUNGS: Breath sounds equal, clear to auscultation bilaterally. No wheezes, and no crackles HEART: Regular rate and rhythm, normal S1 and S2, no murmurs, rubs or gallops ABDOMEN: Soft, nontender, normoactive bowel sounds. No guarding, no rebound. No masses EXTREMITIES: Normal range of motion, no edema. No clubbing or cyanosis. No cords, erythema, or tenderness NEUROLOGICAL: Cranial nerves II through XII grossly intact. Normal speech. Motor and sensation intact. Gait not tested due to nature of complaint. SKIN: Warm, Dry, normal turgor, no rashes or lesions noted. <Annette Hargrove - Last Filed: 07/23/16 16:06> ED Treatment Course - LABORATORY CBC & Chemistry Diagram: 07/23/16 12:05 07/23/16 12:05 <Justine Bal - Last Filed: 07/23/16 15:06> - LABORATORY CBC & Chemistry Diagram: 07/23/16 12:05 07/23/16 12:05 <Annette Hargrove - Last Filed: 07/23/16 16:06> Medical Decision Making - Medical Decision Making 07/23/16 13:[address] Diomedes Neil[address] Dr. Hernán Prieto covering. 07/23/16 13:[address] Glenn Toribio. 07/23/16 13:[address] Glenn Toribio through service. 07/23/16 12:[address] Glenn Toribio. 07/23/16 12:[address] Glenn Toribio. school secretary states that he will return the call in approximately 5 minutes. 07/23/16 12:[address] Glenn Toribio. 07/23/16 12:[address] Monroe Orellana. Case discussed. <Justine Bal - Last Filed: 07/23/16 15:06> - Medical Decision Making 07/23/16 14:[address] Orellana via phone. Requesting ICU. I will discuss with Dr. Loja. 07/23/16 15:[address] Loja. Patient accepted to ICU. Patient was already taken to tele. D/w nurse admin, will change patient to ICU. <Annette Hargrove - Last Filed: 07/23/16 16:06> *DC/Admit/Observation/Transfer <Justine Bal - Last Filed: 07/23/16 15:06> - Discharge Dispostion Admit: Yes <Annette Hargrove - Last Filed: 07/23/16 16:06> Diagnosis at time of Disposition: Symptomatic bradycardia - Discharge Dispostion Condition at time of disposition: Guarded - Referrals
[2016-07-23 12:21] LABS: MCH 27.3 pg (25.7-33.7); MCHC 33.2 g/dl (32.0-35.9); MEAN CELL VOLUME 82.1 fl (80-96); PLATELET COUNT 142 K/MM3 (134-434); RDW 16.1 % (11.9-15.9); WHITE BLOOD COUNT 5.4 K/mm3 (4.0-10.0)
[2016-07-23 12:40] LABS: INR 1.33 (0.82-1.09); PROTHROMBIN TIME (PATIENT) 14.7 SEC (9.98-11.88)
[2016-07-23 12:45] LABS: ALBUMIN 3.1 g/dl (3.4-5.0); ANION GAP 10 (8-16); BILIRUBIN,TOTAL 0.5 mg/dL (0.2-1.0); CALCIUM 8.1 mg/dL (8.5-10.1); CO2 23 mmol/L (21-32); COCKROFT - GAULT 81.07; CREATININE 2.3 mg/dL (0.7-1.3); GLUCOSE,RANDOM 191 mg/dL (74-106); SGOT/AST 17 U/L (15-37); SGPT/ALT 20 U/L (12-78); TOT PROT 6.5 g/dl (6.4-8.2)
[2016-07-23 12:47] LABS: ALK PHOS 104 U/L (45-117); TROPONIN I < 0.02 ng/ml (0.00-0.05)
[2016-07-23 13:33] LABS: PLATELET ESTIMATE ADEQUATE (NORMAL)
[2016-07-23] MEDS ORDERED: GlUCAGON HUMAN RECOMBINANT 1 MG/VIAL IVPUSH ONE (15:01)
--- NOTE | 2016-07-23 15:21 | EKG ---
Test Reason : Blood Pressure : / mmHG Vent. Rate : 043 BPM Atrial Rate : 043 BPM P-R Int : 210 ms QRS Dur : 092 ms QT Int : 450 ms P-R-T Axes : 033 018 039 degrees QTc Int : 380 ms MARKED SINUS BRADYCARDIA WITH MARKED SINUS ARRHYTHMIA WITH 1ST DEGREE A-V BLOCK LOW VOLTAGE QRS ABNORMAL ECG WHEN COMPARED WITH ECG OF 17-MAY-2016 17:11, SINUS RHYTHM HAS REPLACED ATRIAL FIBRILLATION VENT. RATE HAS DECREASED BY 66 BPM Confirmed by DORY ESCOBAR MD ([id number]) on 07/23/2016 3:21:27 PM Referred By: Confirmed By:DORY ESCOBAR MD
--- NOTE | 2016-07-23 16:24 | CON.CARD ---
Consult Consult Specialty:: CARDIO Referred by:: brianna Reason for Consultation:: gabriela - History of Present Illness Chief Complaint: dizzy History of Present Illness: 61 yo male went to dr reed today b/c of dizziness, found to have HR in 30s. pt feeling dizzy off and on for 1-2 wks. says only happens when gets up from seated or if standing already, denies episodes when laying down or seated. says had similar dizzy yrs ago with leena and he gave him a med that helped (? ?). in ER HR was 43, sinus gabriela, narrow qrs. metopr held, glucagon given--has been 50s-60s sinus on tele monitor in icu. no more dizzy. 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: Peripheral Neuropathy Cardio/Vascular: Yes: AFIB, CAD, CHF, HTN, Hyperlipdemia Gastrointestinal: Yes: GERD Renal/: Yes: Renal Inusuff, Other (zhang) Infectious Disease: Yes: Other (osteomyelitis of left fifth metartarsal 2011) Endocrine: Yes: Diabetes Mellitus Additional Medical History: morbid obesity - Past Surgical History Past Surgical History: Yes: Stent (X2) - Alcohol/Substance Use Hx Alcohol Use: No History of Substance Use: reports: None - Smoking History Smoking history: Never smoked Have you smoked in the past 12 months: No Aproximately how many cigarettes per day: 0 - Social History Usual Living Arrangement: With Spouse ADL: Independent History of Recent Travel: No Home Medications - Allergies Allergies/Adverse Reactions: Allergies Allergy/AdvReac Type Severity Reaction Status Date / Time No Known Drug Allergies Allergy Verified 07/23/16 11:51 - Home Medications Home Medications: Ambulatory Orders Cholecalciferol (Vitamin D3) [Vitamin D3 -] 1,000 unit PO DAILY 05/17/16 Clopidogrel Bisulfate [Plavix -] 75 mg PO DAILY 05/17/16 Cyclosporine [Sandimmune] 100 mg PO DAILY 05/17/16 Dulaglutide [Trulicity] 1.5 mg SQ WEEKLY 05/17/16 Febuxostat [Uloric -] 80 mg PO DAILY 05/17/16 Ferrous Sulfate [Feosol] 325 mg PO DAILY 05/17/16 Gabapentin 300 mg PO BID 05/17/16 Magnesium Oxide [Magnesium] 400 mg PO DAILY 05/17/16 Metoprolol Tartrate [Lopressor -] 25 mg PO DAILY 05/17/16 Potassium Chloride [K-Dur -] 20 meq PO DAILY 05/17/16 Torsemide [Demadex -] 50 mg PO DAILY 05/17/16 Apixaban [Eliquis -] 5 mg PO DAILY 07/23/16 Atorvastatin Ca [Lipitor] 80 mg PO DAILY 07/23/16 Cetirizine HCl [Zyrtec -] 10 mg PO HS 07/23/16 Colchicine [Colcrys -] 0.6 mg PO DAILY PRN 07/23/16 Insulin (Novolog 70/30) [Novolog Mix 70/30 Flexpen -] 30 units SQ BIDAC Valsartan [Diovan] 320 mg PO DAILY 07/23/16 Family Disease History - Family Disease History Family Disease History: Diabetes: Father, Mother, Heart Disease: Father, Mother , Brother Review of Systems - Review of Systems Constitutional: denies: Chills, Fever Eyes: denies: Eye Pain HENT: denies: Nasal Congestion Neck: denies: Stiffness Cardiovascular: denies: Palpitations Respiratory: denies: Orthopnea, PND Gastrointestinal: denies: Diarrhea, Rectal Bleeding Genitourinary: denies: Burning, Hematuria Musculoskeletal: denies: Muscle Pain Integumentary: denies: Rash Neurological: denies: Numbness, Seizure, Syncope Endocrine: denies: Excessive Sweating Hematology/Lymphatic: denies: Excessive Bleeding Vital Signs: Vital Signs Temperature 97.5 F L 07/23/16 16:07 Pulse Rate 57 L 07/23/16 16:07 Respiratory Rate 18 07/23/16 16:07 Blood Pressure 140/61 07/23/16 16:07 O2 Sat by Pulse Oximetry (%) 98 07/23/16 14:45 Constitutional: Yes: No Distress, Obese Eyes: No: Sclera Icterus HENT: No: Nasal Congestion Neck: No: Decreased ROM Respiratory: Yes: CTA Bilaterally. No: Accessory Muscle Use, Rales, Wheezes Gastrointestinal: Yes: Normal Bowel Sounds. No: Distention, Hepatomegaly, Palpable Mass, Tenderness Cardiovascular: Yes: Regular Rate and Rhythm JVD: No Carotid Bruit: No PMI: Non-Displaced Heart Sounds: Yes: S1, S2. No: Gallop Murmur: No: Systolic Murmur, Diastolic Murmur Musculoskeletal: Yes: Other (No kyphosis) Extremities: No: Cool, Cyanosis Edema: No Peripheral Pulses: 2+ Left Carotid, 2+ Right Carotid, 2+ Left Doralis Pedis, 2+ Right Dorsalis Pedis Integumentary: No: Jaundice Neurological: Yes: Alert, Oriented (x3) Psychiatric: No: Agitated - Other Data Labs, Other Data: INR, PTT INR 1.33 (0.82-1.09) H 07/23/16 12:05 Laboratory Tests 05/21/16 07/23/16 07/23/16 05:35 12:05 12:05 WBC 5.4 D Hgb 12.0 Plt Count 142 Sodium 137 Potassium 5.1 D Carbon Dioxide 23 BUN 72 H D Creatinine 1.6 H 2.3 H D AST 17 ALT 20 Creatine Kinase 56 Troponin I < 0.02 D ekg 07/23 (ER): sinus gabriela 43bpm with sinus arrhythmia present; 1st degr AVB; normal axis, normal QRS/QT intervals; no path q's; no ST shifts or TWIs Imaging - Results Chest X-ray: Report Reviewed (incr markings) Assessment/Plan Echo 03/27: nl LV/EF; nl RV; valve fxn WNL tele: NSR 50s-60s 60 m hx cad s/p pci (10/2012 darryn to pLCx and dLCx, residual 30-50% in mRCA, pLAD , mLAD), dchf, venous insuff, morbid obesity, ckd, htn, hld, dm, pafib, dvt, foot ulcers, leukemia here for symptomatic sinus bradycardia. dizziness: -sx's sound positional. not clear was due to bradycardia (pt frequently uses pulse-ox monitor at home and has not seen HR below 40s which is rare, usually 50 -60). -however severe gabriela 30s at pmd today -ZHANG suggestive he has had low cardiac output-->renal hypoperfusion for several days -observe off metoprolol paroxysmal Afib/sinus gabriela -reportedly AF with mildly rapid HR 109 at some point during recent hosp stay --in sinus in office with lindsay later that month -sinus gabriela to 30s at pmd today, 43 here in ER -currently in icu tele has shown HR 50s-60s, no more dizzy sx's -suspect SSS -r/o hypothyroid--TSH sent -on metoprolol 25 qd at home--now held -s/p glucagon in ER? (ordered, no MAR documenation it was given) -d/w'd dr montoya: if HR improves off metoprolol, and remains in sinus, will defer PM and observe--if has rapid AF in future will need PM to allow adequate BB dose -hold Eliquis tonight, while observe HR direction on tele (in case needs PM)-- if remains questionable in am, can start UFH for AC coverage that can be stopped -atropine at bedside (d/w'd RN) -no signs of inferior ischemia on ECG, enzymes neg x 1--will rpt later today CAD: -prior DARRYN x 2 to prox and dist Lcx 2012; no residual obstructive dz then (30-50 % LAD, mild RCA) -post-prandial CP here 05/27, cardiac enzymes negative--pt's weight exceeds limit for the [facility] for stress testing, and cath deferred given atypical sx's with no recurrence in office with lindsay, and CKD with hi risk of C.I.N. -cont home med regimen of plavix (plus eliquis), atorva 20 (takes 1/4 of 80mg pill), diovan 160 HFpEF/venous insuff/edema -well-compensated, no sob; -on torsemide 50 at home--will hold here given ZHANG HTN -well controlled -hold diovan until creat trending down, observe bp trend ZHANG on CKD -baseline creat ranges 1.2-1.6 on prior admits here -creat up presently, ? due to hypoperfusion from hypotension -hold diuretics, low threshold for gentle hydration if creat doesn't improve
--- NOTE | 2016-07-23 16:55 | CONSULT ---
Consultation: REQUESTING PROVIDER: CONSULT REQUEST: We have been asked to medically evaluate this patient for sympomatic bradycardia and ZHANG. HISTORY OF PRESENT ILLNESS: 61 yr old man referred by PCP (Dr. Neil's office) for bradycardia of 33bpm in the office earlier today. Since he has been feeling dizzy("like he is drunk, he is spinning", feels like he has unsteady gait), occurs when he is sitting for extended periods of time or when he is moving around, lasting hours when it starts and gets better when he takes a nap. Increased in frequency over the weekend. He checked his sugar yesterday when it occuring thinking it may be due to hypoglycemia but his sugar at the time was 190 (unsually high for him at home, usual range on QID testing is controlled <100. He felt this may have been vertigo, he had taken meclizine in the past and made an appointment with PCP for more meclizine today. In the office he was hypotensive but was able to drive himself to [facility] from Dr. Neil's office. last week ago he had URI symptoms treated with 3-day course of z-berto and cough medicine. has been able to lay flat and denies LE edema. able to climb stairs and walk around 1acre of property without difficulty. Denies syncope, chest pain, lightheadedness, sob, or decrease in daily acitivities, no changes in medications or diet recently. Has been trying to lose weight for past yr, lost nearly 70lbs in the last year. 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, dx 2014), CKD, HTN, DM II, paraxsymal afib, CHF, HLD, osteomyelitis, morbid obesity, gout, Surghx: cardiac stents, laser eye surgery, toe amputations due to osteomyelitis family hx of HTN, DM, cancer soc: lives with and multiple family members, denies smoking or ETOH hx REVIEW OF SYSTEMS: CONSTITUTIONAL: Present: intentional weight loss over past year Absent: fever, chills, diaphoresis, generalized weakness, malaise, loss of appetite HEENT: Absent: rhinorrhea, nasal congestion, throat pain, throat swelling, difficulty swallowing, mouth swelling, ear pain, eye pain, visual changes CARDIOVASCULAR: Absent: chest pain, syncope, palpitations, irregular heart rate, lightheadedness , peripheral edema RESPIRATORY: Absent: cough, shortness of breath, dyspnea with exertion, orthopnea, wheezing, stridor, hemoptysis GASTROINTESTINAL: Absent: abdominal pain, abdominal distension, nausea, vomiting, diarrhea, constipation, melena, hematochezia GENITOURINARY: Absent: dysuria, frequency, urgency, hesitancy, hematuria, flank pain, genital pain MUSCULOSKELETAL: Absent: myalgia, arthralgia, joint swelling, back pain, neck pain SKIN: Absent: rash, itching, pallor HEMATOLOGIC/IMMUNOLOGIC: Absent: easy bleeding, easy bruising, lymphadenopathy, frequent infections ENDOCRINE: Absent: unexplained weight gain, unexplained weight loss, heat intolerance, cold intolerance NEUROLOGIC: Present: dizziness Absent: headache, focal weakness or paresthesias, unsteady gait, seizure, mental status changes, bladder or bowel incontinence PSYCHIATRIC: Absent: anxiety, depression, suicidal or homicidal ideation, hallucinations. PHYSICAL EXAMINATION Vital Signs - 24 hr 07/23/16 07/23/16 07/23/16 13:17 14:09 14:45 Temperature Pulse Rate Pulse Rate [ 46 L 44 L 46 L Apical] Respiratory 16 18 16 Rate Blood Pressure Blood Pressure 121/49 133/65 129/60 [Left Arm] O2 Sat by Pulse 99 98 98 Oximetry (%) 07/23/16 07/23/16 16:07 16:39 Temperature 97.5 F L Pulse Rate 57 L Pulse Rate [ Apical] Respiratory 18 Rate Blood Pressure 140/61 Blood Pressure [Left Arm] O2 Sat by Pulse 100 Oximetry (%) GENERAL: Awake, alert, and fully oriented, in no acute distress. HEAD: Normal with no signs of trauma. EYES: Pupils equal, round and reactive to light, extraocular movements intact, sclera anicteric, conjunctiva clear. No lid lag. EARS, NOSE, THROAT: nares patent, oropharynx clear without exudates. Moist mucous membranes. NECK: Normal range of motion, supple without lymphadenopathy, JVD, or masses. LUNGS: decreased breath sounds in right mid to lower lobe, quiet in left base,. No wheezes, and no crackles. No accessory muscle use. HEART: irregularly irregular, normal S1 and S2 without murmur, rub or gallop. ABDOMEN: Soft, nontender, not distended, normoactive bowel sounds, no guarding, no rebound, no masses. UPPER EXTREMITIES: 2+ radial pulses, warm, well-perfused. No cyanosis. No clubbing. Cap refill <2 seconds. No peripheral edema. LOWER EXTREMITIES: 2+ dp pulses, warm, well-perfused. No calf tenderness. hyperpigmented b/l lower legs(venous stasis changes) skin intact without ulcers , trace b/l nonpitting edema. 4 toes b/l feet, amputation of distal 5th digits, 2nd toe of left and right feet. NEUROLOGICAL: Cranial nerves II-XII intact. facial symmetry, strength 5/5 in handgrip, 5/5 b/l hip extension PSYCHIATRIC: Cooperative. Good eye contact. Appropriate mood and affect. SKIN: Warm, dry, normal turgor, no rashes or lesions noted. Active Medications Atorvastatin Calcium (Lipitor -) 80 mg PO HS JENNY Chlorhexidine Gluconate (Hibiclens For Decolonization -) 1 applic TP HS JENNY Cholecalciferol (Vitamin D3 -) 1,000 unit PO DAILY JENNY Clopidogrel Bisulfate (Plavix -) 75 mg PO DAILY JENNY Febuxostat (Uloric -) 80 mg PO DAILY JENNY Ferrous Sulfate (Feosol -) 325 mg PO DAILY JENNY Gabapentin (Neurontin -) 300 mg PO BID JENNY Loratadine (Claritin -) 10 mg PO HS JENNY Magnesium Oxide (Mag-Ox -) 400 mg PO DAILY JENNY Mupirocin (Bactroban Ointment (For Decolonization) -) 1 applic NS BID JENNY Stop: 07/28/16 21:59 ASSESSMENT/PLAN: 61 yr old man with multiple co-morbidities referred by PCP for symptomatic bradycardia, found to have ZHANG. Cardiovascular bradycardia unclear etiology, od of BB, r/o KS(trend trops), r/o thyroid dysfunction, low suspicion for infectious cause(pt afebrile without leucocytosis or source of infexn) improved since admission hold beta-blockers no s/s of CHF(no orthopnea, LE edema) Dr. Orellana consulted continue statin and plavix check orthostatics Renal ZHANG on CKD, likely due pre-renal due to hypoperfusion due to hypotension check u/a, urine electrolytes,cr,urea, protein, cyclosporine level to evaluate further hold duiretics/potassium Dr. Anderson consulted Respiratory chest xray with increased pulmonary markings, repeat in the AM Hematological leukemia continue cyclosporine Endocrine DM II check HbA1c NISS and BGM ACHS pt on trulicity qweekly at home due tomorrow, s does not carry it, if no contraindication, family will bring it from home to administer DVT: pt on eliquis Diet; diabetic low sodium Dispo: We will continue to follow the patient. Thank you for this consultative opportunity. Visit type - Emergency Visit Emergency Visit: No - New Patient This patient is new to me today: Yes Date on this admission: 07/23/16 - Critical Care Critical Care patient: Yes Total Critical Care Time (in minutes): 36 Critical Care Statement: The care of this patient involved high complexity decision making to prevent further life threatening deterioration of the patient 's condition and/or to evalute & treat vital organ system(s) failure or risk of failure.
--- NOTE | 2016-07-23 18:19 | CONSULT ---
Consult Consult Specialty:: Nephrology Reason for Consultation:: ZHANG - History of Present Illness Chief Complaint: sent in from PMD for bradycardia History of Present Illness: Pt is a 61 year old male with pmhx of CAD, DM, HTN, a-fib, and obesity who was sent in from his primary doctors office for bradycardia and hypotension. He had a pulse of 30 and a blood pressure of about 90/60. He is know to me from previous admissions and follows with me in the office. He was found to be in acute renal failure and I was called to evaluate him. He does have CKD however it has been stable until now. He denies shortness of breath or palpitations. He says he feels much better now. He denies dysuria or hematuria. 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 Medical History [employer]: Yes: Peripheral Neuropathy Cardio/Vascular: Yes: AFIB, CAD, CHF, HTN, Hyperlipdemia Gastrointestinal: Yes: GERD Renal/: Yes: Renal Inusuff, Other (zhang) Infectious Disease: Yes: Other (osteomyelitis of left fifth metartarsal 2012) Endocrine: Yes: Diabetes Mellitus Additional Medical History: morbid obesity - Past Surgical History Past Surgical History: Yes: Stent (X2) - Alcohol/Substance Use Hx Alcohol Use: No History of Substance Use: reports: None - Smoking History Smoking history: Never smoked Have you smoked in the past 12 months: No Aproximately how many cigarettes per day: 0 - Social History Usual Living Arrangement: With Spouse ADL: Independent History of Recent Travel: No Home Medications - Allergies Allergies/Adverse Reactions: Allergies Allergy/AdvReac Type Severity Reaction Status Date / Time No Known Drug Allergies Allergy Verified 07/23/16 11:51 - Home Medications Home Medications: Ambulatory Orders Cholecalciferol (Vitamin D3) [Vitamin D3 -] 1,000 unit PO DAILY 05/17/16 Clopidogrel Bisulfate [Plavix -] 75 mg PO DAILY 05/17/16 Cyclosporine [Sandimmune] 100 mg PO DAILY 05/17/16 Dulaglutide [Trulicity] 1.5 mg SQ WEEKLY 05/17/16 Febuxostat [Uloric -] 80 mg PO DAILY 05/17/16 Ferrous Sulfate [Feosol] 325 mg PO DAILY 05/17/16 Gabapentin 300 mg PO BID 05/17/16 Magnesium Oxide [Magnesium] 400 mg PO DAILY 05/17/16 Metoprolol Tartrate [Lopressor -] 25 mg PO DAILY 05/17/16 Potassium Chloride [K-Dur -] 20 meq PO DAILY 05/17/16 Torsemide [Demadex -] 50 mg PO DAILY 05/17/16 Apixaban [Eliquis -] 5 mg PO DAILY 07/23/16 Atorvastatin Ca [Lipitor] 80 mg PO DAILY 07/23/16 Cetirizine HCl [Zyrtec -] 10 mg PO HS 07/23/16 Colchicine [Colcrys -] 0.6 mg PO DAILY PRN 07/23/16 Insulin (Novolog 70/30) [Novolog Mix 70/30 Flexpen -] 30 units SQ BIDAC Valsartan [Diovan] 320 mg PO DAILY 07/23/16 Family Disease History - Family Disease History Family Disease History: Diabetes: Father, Mother, Heart Disease: Father, Mother , Brother Review of Systems - Review of Systems Constitutional: reports: Malaise Eyes: reports: No Symptoms HENT: reports: No Symptoms Neck: reports: No Symptoms Cardiovascular: denies: Palpitations Respiratory: denies: SOB Gastrointestinal: reports: No Symptoms Genitourinary: reports: No Symptoms Musculoskeletal: reports: No Symptoms Integumentary: reports: No Symptoms Neurological: reports: No Symptoms Endocrine: reports: No Symptoms Hematology/Lymphatic: reports: No Symptoms Psychiatric: reports: No Symptoms Physical Exam Vital Signs: Vital Signs Temperature 97.5 F L 07/23/16 16:07 Pulse Rate 57 L 07/23/16 16:07 Respiratory Rate 18 07/23/16 16:07 Blood Pressure 140/61 07/23/16 16:07 O2 Sat by Pulse Oximetry (%) 100 07/23/16 16:39 Constitutional: Yes: Calm Eyes: Yes: Conjunctiva Clear HENT: Yes: Atraumatic Neck: Yes: Supple Cardiovascular: Yes: S1, S2 Respiratory: Yes: CTA Bilaterally Gastrointestinal: Yes: Soft, Abdomen, Obese Musculoskeletal: Yes: WNL Edema: (markedly decreased edema ) Edema: LLE: Trace, RLE: Trace Neurological: Yes: Oriented Psychiatric: Yes: Oriented Labs: Laboratory Tests 07/23/16 07/23/16 07/23/16 12:05 12:05 12:05 WBC 5.4 D Hgb 12.0 Plt Count 142 INR 1.33 H Sodium 137 Potassium 5.1 D Chloride 104 Carbon Dioxide 23 Anion Gap 10 BUN 72 H D Creatinine 2.3 H D Creat Clearance w eGFR 29.15 Random Glucose 191 H Calcium 8.1 L Laboratory Tests 05/17/16 05/18/16 05/20/16 17:46 06:30 05:40 Creatinine 1.4 H 1.3 1.6 H 05/21/16 05:35 Creatinine 1.6 H Imaging - Results Chest X-ray: Report Reviewed Problem List - Problems (1) Symptomatic bradycardia Code(s): R00.1 - BRADYCARDIA, UNSPECIFIED (2) ZHANG (acute kidney injury) Code(s): N17.9 - ACUTE KIDNEY FAILURE, UNSPECIFIED (3) Afib Code(s): I48.91 - UNSPECIFIED ATRIAL FIBRILLATION Qualifiers: Atrial fibrillation type: unspecified Qualified Code(s): I48.91 - Unspecified atrial fibrillation (4) CAD (coronary artery disease) Code(s): I25.10 - ATHSCL HEART DISEASE OF [place] CORONARY ARTERY W/O ANG PCTRS (5) CHF (congestive heart failure) Code(s): I50.9 - HEART FAILURE, UNSPECIFIED (6) CKD (chronic kidney disease) Code(s): N18.9 - CHRONIC KIDNEY DISEASE, UNSPECIFIED (7) Lymphoma Code(s): C85.90 - NON-[place]GKIN LYMPHOMA, UNSPECIFIED, UNSPECIFIED SITE Assessment/Plan Current Medications Generic Name Dose Route Start Last Admin Trade Name Freq PRN Reason Stop Dose Admin Apixaban 5 mg 07/24/16 10:00 Eliquis - PO DAILY [facility] Atorvastatin Calcium 80 mg 07/23/16 22:00 Lipitor - PO HS [facility] Chlorhexidine Gluconate 1 applic 07/23/16 22:00 Hibiclens For Decolonization - TP HS JENNY Cholecalciferol 1,000 unit 07/24/16 10:00 Vitamin D3 - PO DAILY JENNY Clopidogrel Bisulfate 75 mg 07/24/16 10:00 Plavix - PO DAILY JENNY Cyclosporine 100 mg 07/24/16 10:00 Sandimmune (Nf) PO DAILY JENNY Febuxostat 80 mg 07/24/16 10:00 Uloric - PO DAILY JENNY Ferrous Sulfate 325 mg 07/24/16 10:00 Feosol - PO DAILY JENNY Gabapentin 300 mg 07/23/16 22:00 Neurontin - PO BID JENNY Loratadine 10 mg 07/23/16 22:00 Claritin - PO HS JENNY Magnesium Oxide 400 mg 07/24/16 10:00 Mag-Ox - PO DAILY [facility] Mupirocin 1 applic 07/23/16 22:00 Bactroban Ointment (For Decolonization) - NS 07/28/16 21:59 BID [facility] Potassium Chloride 20 meq 07/24/16 10:00 K-Dur - PO DAILY [facility] Impression 1. CKD 2. ZHANG 3. cellulitis 4. morbid obesty 5. DM 6. PVD 7. Gout 8. Large cell granular leukemia/lymphoma 9. anemia 10. bradycardia and hypotension Plan - hold potassium as level is high normal - agree with holding torsemide for now - repeat labs in am - cardio input appreciated - tele monitor - pt is on a low dose of cyclosporine, check level Dr Anderson
[2016-07-23] MEDS ORDERED: ATROPINE SULFATE 1 MG/10 ML DISP.SYRIN IVPUSH PRN (18:27)
[2016-07-23 20:22] LABS: URINE APPEARANCE CLEAR; URINE BILIRUBIN NEGATIVE (NEGATIVE); URINE BLOOD NEGATIVE (NEGATIVE); URINE COLOR STRAW; URINE GLUCOSE (UA) NEGATIVE (NEGATIVE); URINE KETONE NEGATIVE (NEGATIVE); URINE LEUK ESTERASE NEGATIVE (NEGATIVE); URINE NITRITE NEGATIVE (NEGATIVE); URINE PROTEIN NEGATIVE (NEGATIVE); URINE UROBILINOGEN NEGATIVE E.U./dl (0.2-1.0)
[2016-07-23 20:34] LABS: THYROID STIMULATING HORMONE 1.95 uIU/ml (0.358-3.74); TROPONIN I < 0.02 ng/ml (0.00-0.05)
[2016-07-23 20:37] LABS: URINE CREATININE 50.7 mg/dL (20-370)
[2016-07-23] MEDS ORDERED: cycloSPORINE 100 MG CAPSULE PO ONE (21:04)
--- NOTE | 2016-07-23 21:15 | CONSULT ---
Consult Consult Specialty:: Pulmonary/Critical Care Reason for Consultation:: Dizziness, Bradycardia - History of Present Illness Chief Complaint: "I felt dizzy for the past few days." History of Present Illness: This is a 61 year old gentleman with a past medical history of morbid obesity, CAD, DM, HTN, AFib (on Eliquis) who presented to Dr. Neil earlier today with c /o dizziness for several days exacerbated by exertion found to be bradycardic in the 30s now being admitted for continuous telemetry and further monitoring. He reports lightheadedness over the past several days that was worse with standing up and exertion. He called his daughter and presented to Dr. Neil. In the office he was found to be bradycardic to the 30s with BP 90/60. He was sent to the ED. In the ED his HR was 43, Sinus Issa on ECG. He received one dose of glucagon and HR maintained 50 to 60 in sinus. Labs were relatively unremarkable except for Cr 2.3 (baseline 1.6-1.8) unclear if worsening heart failure vs. dehydration. He denies chest pain, shortness of breath, LE edema, recent weight gain, palpitations. Cardiology was consulted and he is being admitted for continuous telemetry and further monitoring of bradycardia. - History Source History Provided By: Patient, Family Member Limitations to Obtaining History: No Limitations - Past Medical History [employer]: Yes: Peripheral Neuropathy Cardio/Vascular: Yes: AFIB, CAD, CHF, HTN, Hyperlipdemia Gastrointestinal: Yes: GERD Renal/: Yes: Renal Inusuff, Other (zhang) Infectious Disease: Yes: Other (osteomyelitis of left fifth metartarsal 2012) Endocrine: Yes: Diabetes Mellitus Additional Medical History: morbid obesity - Past Surgical History Past Surgical History: Yes: Stent (X2) - Alcohol/Substance Use Hx Alcohol Use: No History of Substance Use: reports: None - Smoking History Smoking history: Never smoked Have you smoked in the past 12 months: No Aproximately how many cigarettes per day: 0 - Social History Usual Living Arrangement: With Spouse ADL: Independent History of Recent Travel: No Home Medications - Allergies Allergies/Adverse Reactions: Allergies Allergy/AdvReac Type Severity Reaction Status Date / Time No Known Drug Allergies Allergy Verified 07/23/16 11:51 - Home Medications Home Medications: Ambulatory Orders Cholecalciferol (Vitamin D3) [Vitamin D3 -] 1,000 unit PO DAILY 05/17/16 Clopidogrel Bisulfate [Plavix -] 75 mg PO DAILY 05/17/16 Cyclosporine [Sandimmune] 100 mg PO DAILY 05/17/16 Dulaglutide [Trulicity] 1.5 mg SQ WEEKLY 05/17/16 Febuxostat [Uloric -] 80 mg PO DAILY 05/17/16 Ferrous Sulfate [Feosol] 325 mg PO DAILY 05/17/16 Gabapentin 300 mg PO BID 05/17/16 Magnesium Oxide [Magnesium] 400 mg PO DAILY 05/17/16 Metoprolol Tartrate [Lopressor -] 25 mg PO DAILY 05/17/16 Potassium Chloride [K-Dur -] 20 meq PO DAILY 05/17/16 Torsemide [Demadex -] 50 mg PO DAILY 05/17/16 Apixaban [Eliquis -] 5 mg PO DAILY 07/23/16 Atorvastatin Ca [Lipitor] 80 mg PO DAILY 07/23/16 Cetirizine HCl [Zyrtec -] 10 mg PO HS 07/23/16 Colchicine [Colcrys -] 0.6 mg PO DAILY PRN 07/23/16 Insulin (Novolog 70/30) [Novolog Mix 70/30 Flexpen -] 30 units SQ BIDAC Valsartan [Diovan] 320 mg PO DAILY 07/23/16 Family Disease History - Family Disease History Family Disease History: Diabetes: Father, Mother, Heart Disease: Father, Mother , Brother Review of Systems - Review of Systems Constitutional: reports: No Symptoms Eyes: reports: No Symptoms HENT: reports: No Symptoms Neck: reports: No Symptoms Cardiovascular: reports: No Symptoms Respiratory: reports: No Symptoms Gastrointestinal: reports: No Symptoms Genitourinary: reports: No Symptoms Musculoskeletal: reports: No Symptoms Integumentary: reports: No Symptoms Neurological: reports: No Symptoms Endocrine: reports: No Symptoms Physical Exam Vital Signs: Vital Signs Temperature 97.5 F L 07/23/16 16:07 Pulse Rate 60 07/23/16 20:00 Respiratory Rate 20 07/23/16 21:00 Blood Pressure 147/69 07/23/16 20:00 O2 Sat by Pulse Oximetry (%) 100 07/23/16 21:00 Home Medication List Medication Instructions Recorded Confirmed Type Cholecalciferol (Vitamin D3) 1,000 unit PO DAILY 05/17/16 07/23/16 History [Vitamin D3 -] Clopidogrel Bisulfate [Plavix -] 75 mg PO DAILY 05/17/16 07/23/16 History Cyclosporine [Sandimmune] 100 mg PO DAILY 05/17/16 07/23/16 History Dulaglutide [Trulicity] 1.5 mg SQ WEEKLY 05/17/16 07/23/16 History Febuxostat [Uloric -] 80 mg PO DAILY 05/17/16 07/23/16 History Ferrous Sulfate [Feosol] 325 mg PO DAILY 05/17/16 07/23/16 History Gabapentin 300 mg PO BID 05/17/16 07/23/16 History Magnesium Oxide [Magnesium] 400 mg PO DAILY 05/17/16 07/23/16 History Metoprolol Tartrate [Lopressor -] 25 mg PO DAILY 05/17/16 07/23/16 History Potassium Chloride [K-Dur -] 20 meq PO DAILY 05/17/16 07/23/16 History Torsemide [Demadex -] 50 mg PO DAILY 05/17/16 07/23/16 History Apixaban [Eliquis -] 5 mg PO DAILY 07/23/16 07/23/16 History Atorvastatin Ca [Lipitor] 80 mg PO DAILY 07/23/16 07/23/16 History Cetirizine HCl [Zyrtec -] 10 mg PO HS 07/23/16 07/23/16 History Colchicine [Colcrys -] 0.6 mg PO DAILY PRN 07/23/16 07/23/16 History Insulin (Novolog 70/30) [Novolog 30 units SQ BIDAC 07/23/16 07/23/16 History Mix 70/30 Flexpen -] Valsartan [Diovan] 320 mg PO DAILY 07/23/16 07/23/16 History Active Medications Generic Name Dose Route Start Last Admin Trade Name Freq PRN Reason Stop Dose Admin Atorvastatin Calcium 80 mg 07/23/16 22:00 Lipitor - PO HS JENNY Atropine Sulfate 1 mg 07/23/16 18:27 Atropine Injection - IVPUSH 07/24/16 18:26 ONCE PRN BRADYCARDIA Chlorhexidine Gluconate 1 applic 07/23/16 22:00 Hibiclens For Decolonization - TP HS JENNY Cholecalciferol 1,000 unit 07/24/16 10:00 Vitamin D3 - PO DAILY JENNY Clopidogrel Bisulfate 75 mg 07/24/16 10:00 Plavix - PO DAILY JENNY Febuxostat 80 mg 07/24/16 10:00 Uloric - PO DAILY JENNY Ferrous Sulfate 325 mg 07/24/16 10:00 Feosol - PO DAILY JENNY Gabapentin 300 mg 07/23/16 22:00 Neurontin - PO BID JENNY Loratadine 10 mg 07/23/16 22:00 Claritin - PO HS JENNY Magnesium Oxide 400 mg 07/24/16 10:00 Mag-Ox - PO DAILY JENNY Mupirocin 1 applic 07/23/16 22:00 Bactroban Ointment (For Decolonization) - NS 07/28/16 21:59 BID JENNY Constitutional: Yes: No Distress, Calm Eyes: Yes: Conjunctiva Clear, EOM Intact, PERRL HENT: Yes: Normocephalic Neck: Yes: Supple Cardiovascular: Yes: Regular Rate and Rhythm, S1, S2 Respiratory: Yes: Diminished Gastrointestinal: Yes: Normal Bowel Sounds, Abdomen, Obese Extremities: Yes: Other (B/L LE vascular changes. Cool.) Edema: LLE: Trace, RLE: Trace Integumentary: Yes: Venous Stasis Changes (To B/L LE.) Neurological: Yes: Alert, Oriented ...Motor Strength: WNL Labs: CBC WBC 5.4 K/mm3 (4.0-10.0) D 07/23/16 12:05 RBC 4.39 M/mm3 (4.00-5.60) 07/23/16 12:05 Hgb 12.0 GM/dL (11.7-16.9) 07/23/16 12:05 Hct 36.1 % (35.4-49) 07/23/16 12:05 MCV 82.1 fl (80-96) 07/23/16 12:05 MCHC 33.2 g/dl (32.0-35.9) 07/23/16 12:05 RDW 16.1 % (11.9-15.9) H 07/23/16 12:05 Plt Count 142 K/MM3 (134-434) 07/23/16 12:05 MPV 8.0 fl (7.5-11.1) 07/23/16 12:05 Neutrophils % 5.0 % (42.8-82.8) L 07/23/16 12:05 Lymphocytes % 74.0 % (8-40) H 07/23/16 12:05 Monocytes % 11.0 % (3.8-10.2) H 07/23/16 12:05 Eosinophils % 8.0 % (0-4.5) H D 07/23/16 12:05 Basophils % 2.0 % (0-2.0) 07/23/16 12:05 Differential Comment Manual diff done 07/23/16 12:05 Platelet Estimate Adequate (NORMAL) 07/23/16 12:05 CMP Sodium 137 mmol/L (136-145) 07/23/16 12:05 Potassium 5.1 mmol/L (3.5-5.1) D 07/23/16 12:05 Chloride 104 mmol/L (98-107) 07/23/16 12:05 Carbon Dioxide 23 mmol/L (21-32) 07/23/16 12:05 Anion Gap 10 (8-16) 07/23/16 12:05 BUN 72 mg/dL (7-18) H D 07/23/16 12:05 Creatinine 2.3 mg/dL (0.7-1.3) H D 07/23/16 12:05 Creat Clearance w eGFR 29.15 (>60) 07/23/16 12:05 POC Glucometer [id number] UNITS (()) 07/23/16 17:04 Random Glucose 191 mg/dL (74-106) H 07/23/16 12:05 Calcium 8.1 mg/dL (8.5-10.1) L 07/23/16 12:05 Total Bilirubin 0.5 mg/dL (0.2-1.0) 07/23/16 12:05 AST 17 U/L (15-37) 07/23/16 12:05 ALT 20 U/L (12-78) 07/23/16 12:05 Alkaline Phosphatase 104 U/L (45-117) 07/23/16 12:05 Creatine Kinase 54 IU/L (39-308) 07/23/16 19:40 Troponin I < 0.02 ng/ml (0.00-0.05) 07/23/16 19:40 Total Protein 6.5 g/dl (6.4-8.2) 07/23/16 12:05 Albumin 3.1 g/dl (3.4-5.0) L 07/23/16 12:05 TSH 1.95 uIU/ml (0.358-3.74) 07/23/16 19:40 Troponin, BNP 07/23/16 07/23/16 12:05 19:40 Troponin I < 0.02 D < 0.02 Imaging - Results Chest X-ray: Report Reviewed EKG: Report Reviewed Problem List - Problems (1) ZHANG (acute kidney injury) Code(s): N17.9 - ACUTE KIDNEY FAILURE, UNSPECIFIED (2) CAD (coronary artery disease) Code(s): I25.10 - ATHSCL HEART DISEASE OF [place] CORONARY ARTERY W/O ANG PCTRS (3) CHF (congestive heart failure) Code(s): I50.9 - HEART FAILURE, UNSPECIFIED (4) CKD (chronic kidney disease) Code(s): N18.9 - CHRONIC KIDNEY DISEASE, UNSPECIFIED (5) Diabetes Code(s): E11.9 - TYPE 2 DIABETES MELLITUS WITHOUT COMPLICATIONS Qualifiers: Diabetes mellitus type: type 2 Diabetes mellitus complication detail: with foot ulcer Assessment/Plan A/P: 61 y.o. male with PMH obesity, CAD, DM, HTN, AFib (on Eliquis) who presented with lightheadedness a/w bradycardia in the 30's now s/p glucagon with NSR admitted for continuous telemetry and further monitoring with course also notable for ZHANG. -Cardiology following -Continuous telemetry -Hold Eliquis for now per cards, can consider Heparin for AC in the AM if needs intervention -Hold Metorpolol -May need PPM -Atropine at bedside -Troponin negative x2 -ECG -Continue Plavix and Atorvastatin -Hold home diuretics for now -Trend Creatinine -Monitor urine output -Can consider gentle IVFs if continues to uptrend -Venodynes for DVT ppx CODE STATUS: Full ISAAC Irby CC Time: 35 mins
[2016-07-23] MEDS ORDERED: PT OWN MED DRAWER 7, Y5N ONE (21:34)
[2016-07-23] MEDS: GABAPENTIN 300 MG CAPSULE (FP) PO SCH (22:22)
[2016-07-23] MEDS: MUPIROCIN 2% TOPICAL OINTMENT FOR DECOLONIZATION NS SCH (22:22)
[2016-07-23] MEDS: LORATADINE 10 MG TABLET PO SCH (22:22)
[2016-07-23] MEDS: CHLORHEXIDINE GLUCONATE 4% CLEANSER FOR DECOLONIZATION TP SCH (22:22)
[2016-07-23] MEDS: ATORVASTATIN CA 80 MG TABLET (FP) PO SCH (22:22)
[2016-07-24 06:28] LABS: MCHC 33.1 g/dl (32.0-35.9); MEAN CELL VOLUME 81.8 fl (80-96); MEAN PLT VOLUME 8.6 fl (7.5-11.1); PLATELET COUNT 146 K/MM3 (134-434); RDW 16.4 % (11.9-15.9)
[2016-07-24 07:12] LABS: CALCIUM 8.3 mg/dL (8.5-10.1); COCKROFT - GAULT 109.69; CREATININE 1.7 mg/dL (0.7-1.3); MAGNESIUM 2.2 mg/dL (1.8-2.4); PHOSPHOROUS 3.4 mg/dL (2.5-4.9)
--- NOTE | 2016-07-24 07:15 | PN ---
Physical Exam: SUBJECTIVE: Patient seen and examined OBJECTIVE: Vital Signs Period Temp Pulse Resp BP Sys/Reddy Pulse Ox Last 24 Hr 97.4 F-97.5 F 44-66 16-28 121-149/41-73 98-100 GENERAL: The patient is awake, alert, and fully oriented, in no acute distress. HEAD: Normal with no signs of trauma. EYES: PERRL, extraocular movements intact, sclera anicteric, conjunctiva clear. No ptosis. ENT: Ears normal, nares patent, oropharynx clear without exudates, moist mucous membranes. NECK: Trachea midline, full range of motion, supple. LUNGS: Breath sounds equal, clear to auscultation bilaterally, no wheezes, no crackles, no accessory muscle use. HEART: Regular rate and rhythm, S1, S2 without murmur, rub or gallop. ABDOMEN: Soft, nontender, nondistended, normoactive bowel sounds, no guarding, no rebound, no hepatosplenomegaly, no masses. EXTREMITIES: 2+ pulses, warm, well-perfused, no edema. NEUROLOGICAL: Cranial nerves II through XII grossly intact. Normal speech, gait not observed. PSYCH: Normal mood, normal affect. SKIN: Warm, dry, normal turgor, no rashes or lesions noted Laboratory Results - last 24 hr 07/23/16 07/23/16 07/23/16 17:04 19:00 19:00 WBC RBC Hgb Hct MCV MCHC RDW Plt Count MPV Neutrophils % Lymphocytes % POC Glucometer 161.88975 Creatine Kinase Troponin I TSH Urine Color Straw Urine Appearance Clear Urine pH 6.0 Urine Protein Negative Urine Glucose (UA) Negative Urine Ketones Negative Urine Blood Negative Urine Nitrite Negative Urine Bilirubin Negative Urine Urobilinogen Negative Ur Leukocyte Esterase Negative U Random Total Protein Ur Random Sodium Ur Random Potassium Ur Random Chloride Ur Random Urea Nitrogn 497 Urine Creatinine 07/23/16 07/23/16 07/23/16 19:00 19:08 19:40 WBC RBC Hgb Hct MCV MCHC RDW Plt Count MPV Neutrophils % Lymphocytes % POC Glucometer Creatine Kinase 54 Troponin I < 0.02 TSH 1.95 Urine Color Urine Appearance Urine pH Urine Protein Urine Glucose (UA) Urine Ketones Urine Blood Urine Nitrite Urine Bilirubin Urine Urobilinogen Ur Leukocyte Esterase U Random Total Protein 7 Ur Random Sodium 60 Ur Random Potassium 29.5 Ur Random Chloride 66 Ur Random Urea Nitrogn Urine Creatinine 50.7 07/23/16 07/23/16 07/24/16 19:40 21:25 05:15 WBC 6.0 RBC 4.18 Hgb 11.3 L Hct 34.2 L MCV 81.8 MCHC 33.1 RDW 16.4 H Plt Count 146 MPV 8.6 Neutrophils % Y Lymphocytes % Y POC Glucometer 195.24212 Creatine Kinase Troponin I TSH Cancelled Urine Color Urine Appearance Urine pH Urine Protein Urine Glucose (UA) Urine Ketones Urine Blood Urine Nitrite Urine Bilirubin Urine Urobilinogen Ur Leukocyte Esterase U Random Total Protein Ur Random Sodium Ur Random Potassium Ur Random Chloride Ur Random Urea Nitrogn Urine Creatinine 07/24/16 06:10 WBC RBC Hgb Hct MCV MCHC RDW Plt Count MPV Neutrophils % Lymphocytes % POC Glucometer 155.86241 Creatine Kinase Troponin I TSH Urine Color Urine Appearance Urine pH Urine Protein Urine Glucose (UA) Urine Ketones Urine Blood Urine Nitrite Urine Bilirubin Urine Urobilinogen Ur Leukocyte Esterase U Random Total Protein Ur Random Sodium Ur Random Potassium Ur Random Chloride Ur Random Urea Nitrogn Urine Creatinine Active Medications Generic Name Dose Route Start Last Admin Trade Name Scottq PRN Reason Stop Dose Admin Atorvastatin Calcium 80 mg 07/23/16 22:00 07/23/16 22:22 Lipitor - PO 80 mg HS JENNY Administration Atropine Sulfate 1 mg 07/23/16 18:27 Atropine Injection - IVPUSH 07/24/16 18:26 ONCE PRN BRADYCARDIA Chlorhexidine Gluconate 1 applic 07/23/16 22:00 07/23/16 22:22 Hibiclens For Decolonization - TP 1 applic HS [facility] Administration Cholecalciferol 1,000 unit 07/24/16 10:00 Vitamin D3 - PO DAILY JENNY Clopidogrel Bisulfate 75 mg 07/24/16 10:00 Plavix - PO DAILY JENNY Cyclosporine 100 mg 07/24/16 10:00 Sandimmune (Nf) PO 07/24/16 10:01 ONCE ONE Febuxostat 80 mg 07/24/16 10:00 Uloric - PO DAILY JENNY Ferrous Sulfate 325 mg 07/24/16 10:00 Feosol - PO DAILY JENNY Gabapentin 300 mg 07/23/16 22:00 07/23/16 22:22 Neurontin - PO 300 mg BID JENNY Administration Loratadine 10 mg 07/23/16 22:00 07/23/16 22:22 Claritin - PO 10 mg HS JENNY Administration Magnesium Oxide 400 mg 07/24/16 10:00 Mag-Ox - PO DAILY JENNY Mupirocin 1 applic 07/23/16 22:00 07/23/16 22:22 Bactroban Ointment (For Decolonization) - NS 07/28/16 21:59 1 applic BID JENNY Administration ASSESSMENT/PLAN: 61 yr old man with multiple co-morbidities referred by PCP for symptomatic bradycardia, found to have ZHANG. Cardiovascular bradycardia unclear etiology, - no MT, trops neg x2, r/o MT(trend trops), r/o thyroid dysfunction - TSH wnl improved since admission hold beta-blockers no s/s of CHF(no orthopnea, LE edema) Dr. Orellana consulted continue statin and plavix Renal ZHANG on CKD, likely due pre-renal due to hypoperfusion due to hypotension Fe urea 31.3%, likely pre-renal cause, Cr improved since yesterday cyclosporine level pending hold duiretics/potassium, reasses need for K+ oral with tomorrow's labs Dr. 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 pt on diet plans for weight loss safely for DM Musculosk PT to general counselor patient on low-impact exercises safe for DM and his body habitus DVT: pt on eliquis Diet; diabetic low sodium Dispo: pt's HR improved, he can be monitored on Telemetry floor Visit type - Emergency Visit Emergency Visit: No - New Patient This patient is new to me today: No - Critical Care Critical Care patient: Yes Total Critical Care Time (in minutes): 35 Critical Care Statement: The care of this patient involved high complexity decision making to prevent further life threatening deterioration of the patient 's condition and/or to evalute & treat vital organ system(s) failure or risk of failure.
[2016-07-24 07:35] VITALS: BMI 55.1
--- NOTE | 2016-07-24 07:37 | HP ---
Admitting History and Physical - Admission History of Present Illness: 61 yo M history obesity, CAD, DM, HTN, afib sent by Dr. Neil's office for symptomatic bradycardia. He states that he has been feeling lightheaded for the past few days, went to see his doctor. When he arrived at his appointment, his heart rate was 30 with a blood pressure of 90/60. Sent for evaluation. He c/o lightheadedness, worse with standing up and exertion, better with rest. Currently asymptomatic. No recent cp, SOB, diaphoresis, N/V. - Past Medical History POSTPARTUM RN: Yes: Peripheral Neuropathy Cardiovascular: Yes: AFIB, CAD, CHF, HTN, Hyperlipdemia Gastrointestinal: Yes: GERD Renal/: Yes: Renal Inusuff, Other (gopal) Heme/Onc: Yes: Anemia Infectious Disease: Yes: Other (osteomyelitis of left fifth metartarsal 2011) Endocrine: Yes: Diabetes Mellitus - Past Surgical History Past Surgical History: Yes: Stent (X2) - Smoking History Smoking history: Never smoked Have you smoked in the past 12 months: No Aproximately how many cigarettes per day: 0 - Alcohol/Substance Use Hx Alcohol Use: No History of Substance Use: reports: None - Social History ADL: Independent History of Recent Travel: No Home Medications - Allergies Allergies/Adverse Reactions: Allergies Allergy/AdvReac Type Severity Reaction Status Date / Time No Known Drug Allergies Allergy Verified 07/23/16 11:51 - Home Medications Home Medications: Ambulatory Orders Cholecalciferol (Vitamin D3) [Vitamin D3 -] 1,000 unit PO DAILY 05/17/16 Clopidogrel Bisulfate [Plavix -] 75 mg PO DAILY 05/17/16 Cyclosporine [Sandimmune] 100 mg PO DAILY 05/17/16 Dulaglutide [Trulicity] 1.5 mg SQ WEEKLY 05/17/16 Febuxostat [Uloric -] 80 mg PO DAILY 05/17/16 Ferrous Sulfate [Feosol] 325 mg PO DAILY 05/17/16 Gabapentin 300 mg PO BID 05/17/16 Magnesium Oxide [Magnesium] 400 mg PO DAILY 05/17/16 Metoprolol Tartrate [Lopressor -] 25 mg PO DAILY 05/17/16 Potassium Chloride [K-Dur -] 20 meq PO DAILY 05/17/16 Torsemide [Demadex -] 50 mg PO DAILY 05/17/16 Apixaban [Eliquis -] 5 mg PO DAILY 07/23/16 Atorvastatin Ca [Lipitor] 80 mg PO DAILY 07/23/16 Cetirizine HCl [Zyrtec -] 10 mg PO HS 07/23/16 Colchicine [Colcrys -] 0.6 mg PO DAILY PRN 07/23/16 Insulin (Novolog 70/30) [Novolog Mix 70/30 Flexpen -] 30 units SQ BIDAC Valsartan [Diovan] 320 mg PO DAILY 07/23/16 Family Disease History - Family Disease History Family Disease History: Diabetes: Father, Mother, Heart Disease: Father, Mother , Brother Review of Systems - Review of Systems Cardiovascular: reports: Shortness of Breath, Other (BRADICAEDIA). denies: Chest Pain Respiratory: denies: SOB on Exertion Gastrointestinal: denies: Abdominal Pain Neurological: reports: Dizziness, Weakness. denies: Change in LOC, Change in Speech Physical Examination Vital Signs: Vital Signs Temperature 97.5 F L 07/24/16 04:00 Pulse Rate 60 07/24/16 06:00 Respiratory Rate 19 07/24/16 06:00 Blood Pressure 135/56 07/24/16 06:00 O2 Sat by Pulse Oximetry (%) 100 07/23/16 21:00 Cardiovascular: Yes: S1, S2 Respiratory: Yes: Regular, CTA Bilaterally Gastrointestinal: Yes: Normal Bowel Sounds, Soft Edema: Yes Labs: CBC, BMP 07/24/16 05:15 07/24/16 05:15 Problem List - Problems (1) Symptomatic bradycardia Assessment/Plan: OFF METOPROLOL MONITOR MAY NEED PACEMAKER Code(s): R00.1 - BRADYCARDIA, UNSPECIFIED (2) CAD (coronary artery disease) Assessment/Plan: SAME MEDS Code(s): I25.10 - ATHSCL HEART DISEASE OF [place] CORONARY ARTERY W/O ANG PCTRS (3) CHF (congestive heart failure) Assessment/Plan: MONITOR ON CURRENT MEDS Code(s): I50.9 - HEART FAILURE, UNSPECIFIED (4) Diabetes Assessment/Plan: BGM INSULIN ENDO Code(s): E11.9 - TYPE 2 DIABETES MELLITUS WITHOUT COMPLICATIONS Qualifiers: Diabetes mellitus type: type 2 Diabetes mellitus complication detail: with foot ulcer (5) Lymphoma Assessment/Plan: CHRONIC Code(s): C85.90 - NON-[place]GKIN LYMPHOMA, UNSPECIFIED, UNSPECIFIED SITE
[2016-07-24 09:06] LABS: PLATELET ESTIMATE SLT DECREASED (NORMAL)
[2016-07-24] MEDS ORDERED: PT OWN MED DRAWER 7, Y5N ONE ×2 (09:21→11:37)
[2016-07-24] MEDS: FERROUS SO4 325 MG TABLET (FP) PO SCH (09:27)
[2016-07-24] MEDS: GABAPENTIN 300 MG CAPSULE (FP) PO SCH ×2 (09:28→21:52)
[2016-07-24] MEDS: MAGNESIUM OXIDE 400 MG TABLET (FP) PO SCH (09:28)
[2016-07-24] MEDS: CLOPIDOGREL BISULFATE 75 MG TABLET (FP) PO SCH (09:28)
[2016-07-24] MEDS: CHOLECALCIFEROL (VITAMIN D3) 1,000 UNIT TABLET (FP) PO SCH (09:29)
[2016-07-24] MEDS: FEBUXOSTAT 80 MG TAB PO SCH (09:31)
[2016-07-24] MEDS: MUPIROCIN 2% TOPICAL OINTMENT FOR DECOLONIZATION NS SCH ×2 (09:48→21:47)
[2016-07-24] MEDS ORDERED: FEBUXOSTAT 40 MG TAB PO SCH (10:00)
[2016-07-24] MEDS ORDERED: POTASSIUM CHLORIDE TABS 20 MEQ TABLET.ER (FP) PO SCH (10:00)
[2016-07-24] MEDS ORDERED: cycloSPORINE 100 MG CAPSULE PO SCH (10:00)
[2016-07-24] MEDS ORDERED: cycloSPORINE 100 MG CAPSULE PO ONE (10:00)
[2016-07-24] MEDS ORDERED: APIXABAN 5 MG TABLET PO SCH (10:00)
[2016-07-24] MEDS: APIXABAN 5 MG TABLET PO SCH ×2 (11:21→21:48)
--- NOTE | 2016-07-24 11:30 | PN ---
Teaching Attending Note Name of Resident: Alison Yanes ATTENDING PHYSICIAN STATEMENT I saw and evaluated the patient. I reviewed the resident's note and discussed the case with the resident. I agree with the resident's findings and plan as documented. SUBJECTIVE: Pt seen and examined in the ICU. No further bradycardic episodes. Denies shortness of breath or chest pain. No fevers or chills. OBJECTIVE: Last Vital Signs Temp Pulse Resp BP Pulse Ox 97.9 F 62 22 138/65 99 07/24/16 10:00 07/24/16 10:00 07/24/16 10:00 07/24/16 10:00 07/24/16 08:26 Intake & Output 07/21/16 07/22/16 07/23/16 07/24/16 23:59 23:59 23:59 23:59 Intake Total 350 200 Output Total 1000 600 Balance -650 -400 Weight 373 lb 7.409 oz 370 lb Gen: NAD at rest Heart: RRR Lung: decreased breath sounds at the bases Abd: soft, nontender, obese Ext: chronic changes CBC, BMP 07/24/16 05:15 07/24/16 05:15 Active Medications Apixaban (Eliquis -) 5 mg PO BID [facility] Last Admin: 07/24/16 11:21 Dose: 5 mg Atorvastatin Calcium (Lipitor -) 80 mg PO [facility] Last Admin: 07/23/16 22:22 Dose: 80 mg Atropine Sulfate (Atropine Injection -) 1 mg IVPUSH ONCE PRN PRN Reason: BRADYCARDIA Stop: 07/24/16 18:26 Chlorhexidine Gluconate (Hibiclens For Decolonization -) 1 applic TP [facility] Last Admin: 07/23/16 22:22 Dose: 1 applic Cholecalciferol (Vitamin D3 -) 1,000 unit PO DAILY [facility] Last Admin: 07/24/16 09:29 Dose: 1,000 unit Clopidogrel Bisulfate (Plavix -) 75 mg PO DAILY [facility] Last Admin: 07/24/16 09:28 Dose: 75 mg Febuxostat (Uloric -) 80 mg PO DAILY [facility] Last Admin: 07/24/16 09:31 Dose: 80 mg Ferrous Sulfate (Feosol -) 325 mg PO DAILY [facility] Last Admin: 07/24/16 09:27 Dose: Not Given Gabapentin (Neurontin -) 300 mg PO BID [facility] Last Admin: 07/24/16 09:28 Dose: 300 mg Loratadine (Claritin -) 10 mg PO HS [facility] Last Admin: 07/23/16 22:22 Dose: 10 mg Magnesium Oxide (Mag-Ox -) 400 mg PO DAILY [facility] Last Admin: 07/24/16 09:28 Dose: 400 mg Mupirocin (Bactroban Ointment (For Decolonization) -) 1 applic NS BID [facility] Stop: 07/28/16 21:59 Last Admin: 07/24/16 09:48 Dose: 1 applic ASSESSMENT AND PLAN: Bradycardia Acute on Chronic Renal Failure Leukemia Paroxysmal Atrial Fibrillation CAD LV Diastolic Dysfunction HTN Hyperlipidemia - holding beta rashida - continue anticoagulation - cardiac enzymes negative - continue cardiac meds - can monitor on telemetry
[2016-07-24] MEDS ORDERED: HEMOQUE TEST 1 EACH EACH ONE (11:37)
--- NOTE | 2016-07-24 11:57 | PN ---
Progress Note (short form) - Note Progress Note: cc: dizzy, bradycardia o: feeling better, no cp/sob/palps/dizzy/loc. no cigs Vital Signs Temp 97.9 F 07/24/16 10:00 Pulse 62 07/24/16 10:00 Resp 22 07/24/16 10:00 BP 138/65 07/24/16 10:00 Pulse Ox 99 07/24/16 08:26 Intake & Output 07/23/16 07/23/16 07/24/16 11:59 23:59 11:59 Intake Total 350 200 Output Total 1000 600 Balance -650 -400 Weight 370 lb 373 lb 7.409 oz 370 lb Intake: Oral 350 200 Output: Urine 1000 600 Void 1000 600 Other: Voiding Method Urinal Bowel Movement Yes Height 5 ft 9 in 5 ft 9 in Body Mass Index (BMI) 54.6 55.1 Weight Measurement Method Built in Bedscale [facility] Weight Measurement Method Est/Stated by Patient Constitutional: Yes: No Distress, Obese Eyes: No: Sclera Icterus HENT: No: Nasal Congestion Respiratory: Yes: CTA Bilaterally. No: Accessory Muscle Use, Rales, Wheezes Gastrointestinal: Yes: Normal Bowel Sounds. No: Distention, Hepatomegaly, Palpable Mass, Tenderness Cardiovascular: Yes: Regular Rate and Rhythm JVD: No Heart Sounds: Yes: S1, S2. No: Gallop Murmur: No: Systolic Murmur, Diastolic Murmur Extremities: No: Cool, Cyanosis Edema: No Peripheral Pulses: pos dp pt Integumentary: No jaundice diaphoresis Neurological: Yes: Alert, Oriented (x3) Psychiatric: No: Agitated Current Medications Generic Name Dose Route Start Last Admin Trade Name Freq PRN Reason Stop Dose Admin Apixaban 5 mg 07/24/16 10:00 07/24/16 11:21 Eliquis - PO 5 mg BID JENNY Administration Atorvastatin Calcium 80 mg 07/23/16 22:00 07/23/16 22:22 Lipitor - PO 80 mg HS JENNY Administration Atropine Sulfate 1 mg 07/23/16 18:27 Atropine Injection - IVPUSH 07/24/16 18:26 ONCE PRN BRADYCARDIA Chlorhexidine Gluconate 1 applic 07/23/16 22:00 07/23/16 22:22 Hibiclens For Decolonization - TP 1 applic HS JENNY Administration Cholecalciferol 1,000 unit 07/24/16 10:00 07/24/16 09:29 Vitamin D3 - PO 1,000 unit DAILY JENNY Administration Clopidogrel Bisulfate 75 mg 07/24/16 10:00 07/24/16 09:28 Plavix - PO 75 mg DAILY JENNY Administration Febuxostat 80 mg 07/24/16 10:00 07/24/16 09:31 Uloric - PO 80 mg DAILY JENNY Administration Ferrous Sulfate 325 mg 07/24/16 10:00 07/24/16 09:27 Feosol - PO Not Given DAILY JENNY Gabapentin 300 mg 07/23/16 22:00 07/24/16 09:28 Neurontin - PO 300 mg BID JENNY Administration Insulin Aspart 30 units 07/24/16 12:00 Novolog Mix 70/30 Vial SQ BIDAC JENNY Insulin Aspart 1 vial 07/24/16 16:30 Novolog Vial Sliding Scale - SQ ACHS COUNTS INCLUDE 234 BEDS AT THE [facility] Protocol Loratadine 10 mg 07/23/16 22:00 07/23/16 22:22 Claritin - PO 10 mg HS JENNY Administration Magnesium Oxide 400 mg 07/24/16 10:00 07/24/16 09:28 Mag-Ox - PO 400 mg DAILY JENNY Administration Mupirocin 1 applic 07/23/16 22:00 07/24/16 09:48 Bactroban Ointment (For Decolonization) - NS 07/28/16 21:59 1 applic BID JENNY Administration - Other Data Labs, Other Data: Laboratory Last Values WBC 6.0 K/mm3 (4.0-10.0) 07/24/16 05:15 RBC 4.18 M/mm3 (4.00-5.60) 07/24/16 05:15 Hgb 11.3 GM/dL (11.7-16.9) L 07/24/16 05:15 Hct 34.2 % (35.4-49) L 07/24/16 05:15 MCV 81.8 fl (80-96) 07/24/16 05:15 MCHC 33.1 g/dl (32.0-35.9) 07/24/16 05:15 RDW 16.4 % (11.9-15.9) H 07/24/16 05:15 Plt Count 146 K/MM3 (134-434) 07/24/16 05:15 MPV 8.6 fl (7.5-11.1) 07/24/16 05:15 Neutrophils % 7.0 % (42.8-82.8) L D 07/24/16 05:15 Lymphocytes % 81.0 % (8-40) H 07/24/16 05:15 Monocytes % 9.0 % (3.8-10.2) 07/24/16 05:15 Eosinophils % 3.0 % (0-4.5) 07/24/16 05:15 Basophils % 2.0 % (0-2.0) 07/23/16 12:05 Differential Comment Manual diff done 07/24/16 05:15 Platelet Estimate Slt decreased (NORMAL) 07/24/16 05:15 INR 1.33 (0.82-1.09) H 07/23/16 12:05 Sodium 142 mmol/L (136-145) 07/24/16 05:15 Potassium 4.6 mmol/L (3.5-5.1) 07/24/16 05:15 Chloride 108 mmol/L (98-107) H 07/24/16 05:15 Carbon Dioxide 25 mmol/L (21-32) 07/24/16 05:15 Anion Gap 9 (8-16) 07/24/16 05:15 BUN 64 mg/dL (7-18) H 07/24/16 05:15 Creatinine 1.7 mg/dL (0.7-1.3) H D 07/24/16 05:15 Creat Clearance w eGFR 29.15 (>60) 07/23/16 12:05 POC Glucometer 155.76916 UNITS (()) 07/24/16 06:10 Random Glucose 134 mg/dL (74-106) H D 07/24/16 05:15 Hemoglobin A1c % 9.1 % (4.8-6.0) H D 07/24/16 05:15 Calcium 8.3 mg/dL (8.5-10.1) L 07/24/16 05:15 Phosphorus 3.4 mg/dL (2.5-4.9) 07/24/16 05:15 Magnesium 2.2 mg/dL (1.8-2.4) D 07/24/16 05:15 Total Bilirubin 0.5 mg/dL (0.2-1.0) 07/23/16 12:05 AST 17 U/L (15-37) 07/23/16 12:05 ALT 20 U/L (12-78) 07/23/16 12:05 Alkaline Phosphatase 104 U/L (45-117) 07/23/16 12:05 Creatine Kinase 54 IU/L (39-308) 07/23/16 19:40 Troponin I < 0.02 ng/ml (0.00-0.05) 07/23/16 19:40 B-Natriuretic Peptide 404.89 pg/ml (5-125) H 07/24/16 05:15 Total Protein 6.5 g/dl (6.4-8.2) 07/23/16 12:05 Albumin 3.1 g/dl (3.4-5.0) L 07/23/16 12:05 TSH 1.95 uIU/ml (0.358-3.74) 07/23/16 19:40 Urine Color Straw 07/23/16 19:00 Urine Appearance Clear 07/23/16 19:00 Urine pH 6.0 (5.0-8.0) 07/23/16 19:00 Ur Specific [place] 1.015 (1.005-1.025) 07/23/16 19:00 Urine Protein Negative (NEGATIVE) 07/23/16 19:00 Urine Glucose (UA) Negative (NEGATIVE) 07/23/16 19:00 Urine Ketones Negative (NEGATIVE) 07/23/16 19:00 Urine Blood Negative (NEGATIVE) 07/23/16 19:00 Urine Nitrite Negative (NEGATIVE) 07/23/16 19:00 Urine Bilirubin Negative (NEGATIVE) 07/23/16 19:00 Urine Urobilinogen Negative E.U./dl (0.2-1.0) 07/23/16 19:00 Ur Leukocyte Esterase Negative (NEGATIVE) 07/23/16 19:00 U Random Total Protein 7 mg/dl (5-11.9) 07/23/16 19:08 Ur Random Sodium 60 MMOL/L 07/23/16 19:00 Ur Random Potassium 29.5 MMOL/L 07/23/16 19:00 Ur Random Chloride 66 MMOL/L 07/23/16 19:00 Ur Random Urea Nitrogn 497 mg/dL 07/23/16 19:00 Urine Creatinine 50.7 mg/dL (20-370) 07/23/16 19:08 ekg 07/23 (ER): sinus gabriela 43bpm with sinus arrhythmia present; 1st degr AVB; normal axis, normal QRS/QT intervals; no path q's; no ST shifts or TWIs cxr: clear lungs Echo 03/27: nl LV/EF; nl RV; valve fxn WNL tele: SR 60s a/p: 60 m hx cad s/p pci (10/2012 darryn to pLCx and dLCx, residual 30-50% in mRCA, pLAD, mLAD), dchf, venous insuff, morbid obesity, ckd, htn, hld, dm, pafib, dvt , foot ulcers, leukemia here for symptomatic sinus bradycardia. dizziness, bradycardia: -sx's sound positional. not clear was due to bradycardia (pt frequently uses pulse-ox monitor at home and has not seen HR below 40s which is rare, usually 50 -60). -however gabriela 30s at pmd today -ZHANG suggestive he has had low cardiac output-->renal hypoperfusion for several days -after holding bb and diuretic his HR and dizziness have improved -tele shows no pathologic bradyarrhythmias -can transfer to tele floor and monitor one more day on tele paroxysmal Afib/sinus gabriela -reportedly AF with mildly rapid HR 109 at some point during recent hosp stay --in sinus in office with lindsay later that month -sinus gabriela to 30s at pmd today, 43 here in ER -currently in icu tele has shown HR 50s-60s, no pathologic bradyarrhythmias, no more dizzy sx's -tsh wnl -sss vs bb effect -bb has now been discontinued, avoid meds that cause bradycardia -since HR improved off metoprolol, and remains in sinus, will defer PM and observe--if has rapid AF in future will need PM to allow adequate BB dose -resume home eliquis CAD: -no signs acs, ce's negx2 -prior DARRYN x 2 to prox and dist Lcx 2012; no residual obstructive dz then (30-50 % LAD, mild RCA) -post-prandial CP here 05/27, cardiac enzymes negative--pt's weight exceeds limit for the [place] for stress testing, and cath deferred given atypical sx's with no recurrence in office with lindsay, and CKD with hi risk of C.I.N. -cont home med regimen of plavix (plus eliquis), atorva 20, diovan 160 HFpEF/venous insuff/edema -well-compensated, no sob; -on torsemide 50 at home--have held 2/2 to zhang, cr improving, can likely resume tomorrow HTN -controlled -holding diovan until creat back to baseline ZHANG on CKD -baseline creat ranges 1.2-1.6 on prior admits here -creat up presently, ? due to hypoperfusion from hypotension -holding diuretics for now, cr improving today
[2016-07-24] MEDS: INSULIN (NOVOLOG MIX 70/30) 100 UNITS/ML MDV SQ SCH ×3 (15:07→16:45)
[2016-07-24] MEDS ORDERED: PATIENT'S OWN MEDICATION (NON-FORMULARY) (Insulin (Novolog 70/30) [Novolog Mix 70/30 Flexp SQ SCH (16:30)
[2016-07-24] MEDS: INSULIN SLIDING SCALE (NOVOLOG) 1 VIAL SQ SCH ×2 (16:39→21:52)
--- NOTE | 2016-07-24 17:55 | PN ---
Progress Note, Physician History of Present Illness: Pt seen and examined at bedside. He is awake and alert. He denies shortness of breath. - Current Medication List Current Medications: Active Medications Apixaban (Eliquis -) 5 mg PO BID [facility] Last Admin: 07/24/16 11:21 Dose: 5 mg Atorvastatin Calcium (Lipitor -) 80 mg PO HS [facility] Last Admin: 07/23/16 22:22 Dose: 80 mg Atropine Sulfate (Atropine Injection -) 1 mg IVPUSH ONCE PRN PRN Reason: BRADYCARDIA Stop: 07/24/16 18:26 Chlorhexidine Gluconate (Hibiclens For Decolonization -) 1 applic TP HS [facility] Last Admin: 07/23/16 22:22 Dose: 1 applic Cholecalciferol (Vitamin D3 -) 1,000 unit PO DAILY [facility] Last Admin: 07/24/16 09:29 Dose: 1,000 unit Clopidogrel Bisulfate (Plavix -) 75 mg PO DAILY [facility] Last Admin: 07/24/16 09:28 Dose: 75 mg Febuxostat (Uloric -) 80 mg PO DAILY [facility] Last Admin: 07/24/16 09:31 Dose: 80 mg Ferrous Sulfate (Feosol -) 325 mg PO DAILY [facility] Last Admin: 07/24/16 09:27 Dose: Not Given Gabapentin (Neurontin -) 300 mg PO BID [facility] Last Admin: 07/24/16 09:28 Dose: 300 mg Insulin Aspart (Novolog Mix 70/30 Vial) 30 units SQ BIDAC [facility] Last Admin: 07/24/16 16:45 Dose: 30 units Insulin Aspart (Novolog Vial Sliding Scale -) 1 vial SQ ACHS [facility] PRN Reason: Protocol Last Admin: 07/24/16 16:39 Dose: 2 units Loratadine (Claritin -) 10 mg PO HS [facility] Last Admin: 07/23/16 22:22 Dose: 10 mg Magnesium Oxide (Mag-Ox -) 400 mg PO DAILY [facility] Last Admin: 07/24/16 09:28 Dose: 400 mg Mupirocin (Bactroban Ointment (For Decolonization) -) 1 applic NS BID [facility] Stop: 07/28/16 21:59 Last Admin: 07/24/16 09:48 Dose: 1 applic - Objective Vital Signs: Vital Signs Temperature 97.8 F 07/24/16 14:00 Pulse Rate 64 07/24/16 14:00 Respiratory Rate 22 07/24/16 14:00 Blood Pressure 133/60 07/24/16 14:00 O2 Sat by Pulse Oximetry (%) 99 07/24/16 08:26 Constitutional: Yes: Calm Eyes: Yes: Conjunctiva Clear HENT: Yes: Atraumatic Neck: Yes: Supple Cardiovascular: Yes: S1, S2 Respiratory: Yes: CTA Bilaterally Gastrointestinal: Yes: Soft, Abdomen, Obese Genitourinary: Yes: WNL Edema: Yes Edema: LLE: Trace, RLE: Trace Integumentary: Yes: Venous Stasis Changes Neurological: Yes: Oriented Psychiatric: Yes: Oriented Labs: CBC, BMP 07/24/16 05:15 07/24/16 05:15 INR, PTT INR 1.33 (0.82-1.09) H 07/23/16 12:05 Problem List - Problems (1) Symptomatic bradycardia Code(s): R00.1 - BRADYCARDIA, UNSPECIFIED (2) ZHANG (acute kidney injury) Code(s): N17.9 - ACUTE KIDNEY FAILURE, UNSPECIFIED (3) Afib Code(s): I48.91 - UNSPECIFIED ATRIAL FIBRILLATION Qualifiers: Atrial fibrillation type: unspecified Qualified Code(s): I48.91 - Unspecified atrial fibrillation (4) CAD (coronary artery disease) Code(s): I25.10 - ATHSCL HEART DISEASE OF [place] CORONARY ARTERY W/O ANG PCTRS (5) CHF (congestive heart failure) Code(s): I50.9 - HEART FAILURE, UNSPECIFIED (6) CKD (chronic kidney disease) Code(s): N18.9 - CHRONIC KIDNEY DISEASE, UNSPECIFIED (7) Lymphoma Code(s): C85.90 - NON-[place] LYMPHOMA, UNSPECIFIED, UNSPECIFIED SITE Assessment/Plan Current Medications Generic Name Dose Route Start Last Admin Trade Name Freq PRN Reason Stop Dose Admin Apixaban 5 mg 07/24/16 10:00 07/24/16 11:21 Eliquis - PO 5 mg BID JENNY Administration Atorvastatin Calcium 80 mg 07/23/16 22:00 07/23/16 22:22 Lipitor - PO 80 mg HS JENNY Administration Atropine Sulfate 1 mg 07/23/16 18:27 Atropine Injection - IVPUSH 07/24/16 18:26 ONCE PRN BRADYCARDIA Chlorhexidine Gluconate 1 applic 07/23/16 22:00 07/23/16 22:22 Hibiclens For Decolonization - TP 1 applic HS JENNY Administration Cholecalciferol 1,000 unit 07/24/16 10:00 07/24/16 09:29 Vitamin D3 - PO 1,000 unit DAILY JENNY Administration Clopidogrel Bisulfate 75 mg 07/24/16 10:00 07/24/16 09:28 Plavix - PO 75 mg DAILY JENNY Administration Febuxostat 80 mg 07/24/16 10:00 07/24/16 09:31 Uloric - PO 80 mg DAILY JENNY Administration Ferrous Sulfate 325 mg 07/24/16 10:00 07/24/16 09:27 Feosol - PO Not Given DAILY JENNY Gabapentin 300 mg 07/23/16 22:00 07/24/16 09:28 Neurontin - PO 300 mg BID JENNY Administration Insulin Aspart 30 units 07/24/16 12:00 07/24/16 16:45 Novolog Mix 70/30 Vial SQ 30 units BIDAC JENNY Administration Insulin Aspart 1 vial 07/24/16 16:30 07/24/16 16:39 Novolog Vial Sliding Scale - SQ 2 units ACHS JENNY Administration Protocol Loratadine 10 mg 07/23/16 22:00 07/23/16 22:22 Claritin - PO 10 mg HS JENNY Administration Magnesium Oxide 400 mg 07/24/16 10:00 07/24/16 09:28 Mag-Ox - PO 400 mg DAILY JENNY Administration Mupirocin 1 applic 07/23/16 22:00 07/24/16 09:48 Bactroban Ointment (For Decolonization) - NS 07/28/16 21:59 1 applic BID JENNY Administration Laboratory Tests 07/24/16 05:15 Cyclosporine Trough Pending Impression 1. CKD 2. ZHNAG 3. cellulitis 4. morbid obesty 5. DM 6. PVD 7. Gout 8. Large cell granular leukemia/lymphoma 9. anemia 10. bradycardia and hypotension Plan - renal function is improving - hold diuretics today, will likely restart tomorrow - repeat labs in am - check cyclosporine level - tele monitor - potassium is on hold, will evaluate labs in am Dr Anderson
[2016-07-24] MEDS: ATORVASTATIN CA 80 MG TABLET (FP) PO SCH (21:48)
[2016-07-24] MEDS: LORATADINE 10 MG TABLET PO SCH (21:48)
[2016-07-24] MEDS: CHLORHEXIDINE GLUCONATE 4% CLEANSER FOR DECOLONIZATION TP SCH (21:49)
[2016-07-25] MEDS: INSULIN SLIDING SCALE (NOVOLOG) 1 VIAL SQ SCH ×2 (06:22→11:40)
[2016-07-25] MEDS: INSULIN (NOVOLOG MIX 70/30) 100 UNITS/ML MDV SQ SCH (06:29)
[2016-07-25] MEDS: GABAPENTIN 300 MG CAPSULE (FP) PO SCH (09:31)
[2016-07-25] MEDS: APIXABAN 5 MG TABLET PO SCH (09:31)
[2016-07-25] MEDS: FERROUS SO4 325 MG TABLET (FP) PO SCH (09:31)
[2016-07-25] MEDS: MAGNESIUM OXIDE 400 MG TABLET (FP) PO SCH (09:31)
[2016-07-25] MEDS: CLOPIDOGREL BISULFATE 75 MG TABLET (FP) PO SCH (09:32)
[2016-07-25] MEDS: FEBUXOSTAT 80 MG TAB PO SCH (09:32)
[2016-07-25] MEDS: CHOLECALCIFEROL (VITAMIN D3) 1,000 UNIT TABLET (FP) PO SCH (09:32)
[2016-07-25] MEDS: MUPIROCIN 2% TOPICAL OINTMENT FOR DECOLONIZATION NS SCH (09:36)
--- NOTE | 2016-07-25 09:46 | PN ---
Progress Note, Physician - Current Medication List Current Medications: Active Medications Apixaban (Eliquis -) 5 mg PO BID [facility] Last Admin: 07/25/16 09:31 Dose: 5 mg Atorvastatin Calcium (Lipitor -) 80 mg PO HS [facility] Last Admin: 07/24/16 21:48 Dose: 80 mg Chlorhexidine Gluconate (Hibiclens For Decolonization -) 1 applic TP HS [facility] Last Admin: 07/24/16 21:49 Dose: Not Given Cholecalciferol (Vitamin D3 -) 1,000 unit PO DAILY [facility] Last Admin: 07/25/16 09:32 Dose: 1,000 unit Clopidogrel Bisulfate (Plavix -) 75 mg PO DAILY [facility] Last Admin: 07/25/16 09:32 Dose: 75 mg Febuxostat (Uloric -) 80 mg PO DAILY [facility] Last Admin: 07/25/16 09:32 Dose: 80 mg Ferrous Sulfate (Feosol -) 325 mg PO DAILY [facility] Last Admin: 07/25/16 09:31 Dose: 325 mg Gabapentin (Neurontin -) 300 mg PO BID [facility] Last Admin: 07/25/16 09:31 Dose: 300 mg Insulin Aspart (Novolog Mix 70/30 Vial) 30 units SQ BIDAC [facility] Last Admin: 07/25/16 06:29 Dose: 15 units Insulin Aspart (Novolog Vial Sliding Scale -) 1 vial SQ ACHS [facility] PRN Reason: Protocol Last Admin: 07/25/16 06:22 Dose: Not Given Loratadine (Claritin -) 10 mg PO HS [facility] Last Admin: 07/24/16 21:48 Dose: 10 mg Magnesium Oxide (Mag-Ox -) 400 mg PO DAILY [facility] Last Admin: 07/25/16 09:31 Dose: 400 mg Mupirocin (Bactroban Ointment (For Decolonization) -) 1 applic NS BID [facility] Stop: 07/28/16 21:59 Last Admin: 07/25/16 09:36 Dose: Not Given Torsemide (Demadex -) 40 mg PO DAILY [facility] Last Admin: 07/25/16 09:31 Dose: 40 mg - Objective Vital Signs: Vital Signs Temperature 98.2 F 07/25/16 06:00 Pulse Rate 56 L 07/25/16 06:00 Respiratory Rate 20 07/25/16 06:00 Blood Pressure 131/69 07/25/16 06:00 O2 Sat by Pulse Oximetry (%) 99 07/24/16 21:00 Cardiovascular: Yes: Murmur, S1, S2 Respiratory: Yes: Regular, CTA Bilaterally Gastrointestinal: Yes: Normal Bowel Sounds, Soft Edema: Yes Labs: CBC, BMP 07/24/16 05:15 07/24/16 05:15 INR, PTT INR 1.33 (0.82-1.09) H 07/23/16 12:05 Problem List - Problems (1) Symptomatic bradycardia Assessment/Plan: OFF METOPROLOL--HR BETTER MONITOR Code(s): R00.1 - BRADYCARDIA, UNSPECIFIED (2) CAD (coronary artery disease) Assessment/Plan: SAME MEDS Code(s): I25.10 - ATHSCL HEART DISEASE OF [place] CORONARY ARTERY W/O ANG PCTRS (3) CHF (congestive heart failure) Assessment/Plan: MONITOR ON CURRENT MEDS Code(s): I50.9 - HEART FAILURE, UNSPECIFIED (4) Diabetes Assessment/Plan: BGM INSULIN ENDO HBA1C 9.1 Code(s): E11.9 - TYPE 2 DIABETES MELLITUS WITHOUT COMPLICATIONS Qualifiers: Diabetes mellitus type: type 2 Diabetes mellitus complication detail: with foot ulcer (5) Lymphoma Assessment/Plan: CHRONIC Code(s): C85.90 - NON-[place] LYMPHOMA, UNSPECIFIED, UNSPECIFIED SITE
[2016-07-25] MEDS ORDERED: TORSEMIDE 20 MG TABLET (FP) PO SCH (10:00)
[2016-07-25 11:06] LABS: MCH 27.1 pg (25.7-33.7); MCHC 32.9 g/dl (32.0-35.9); MEAN CELL VOLUME 82.3 fl (80-96); MEAN PLT VOLUME 8.1 fl (7.5-11.1); PLATELET COUNT 139 K/MM3 (134-434); RDW 15.9 % (11.9-15.9); WHITE BLOOD COUNT 5.8 K/mm3 (4.0-10.0)
[2016-07-25 11:35] LABS: CALCIUM 8.3 mg/dL (8.5-10.1); COCKROFT - GAULT 143.54; CREATININE 1.3 mg/dL (0.7-1.3); TOT PROT 6.4 g/dl (6.4-8.2)
[2016-07-25 11:36] LABS: ALBUMIN 2.9 g/dl (3.4-5.0); BILIRUBIN,TOTAL 0.5 mg/dL (0.2-1.0)
--- NOTE | 2016-07-25 12:01 | PN ---
Progress Note (short form) - Note Progress Note: No CP or SOB. HR improved and hemodynamics are stable. No acute events overnight. Intake & Output 07/22/16 07/23/16 07/24/16 07/25/16 23:59 23:59 23:59 23:59 Intake Total 350 510 0 Output Total 1000 1850 Balance -650 -1340 0 Weight 373 lb 7.409 oz 370 lb 370 lb 4 oz Last Vital Signs Temp Pulse Resp BP Pulse Ox 98 F 57 L 18 116/45 98 07/25/16 10:00 07/25/16 10:00 07/25/16 10:00 07/25/16 10:00 07/25/16 09:00 Active Medications Apixaban (Eliquis -) 5 mg PO BID [facility] Last Admin: 07/25/16 09:31 Dose: 5 mg Atorvastatin Calcium (Lipitor -) 80 mg PO HS [facility] Last Admin: 07/24/16 21:48 Dose: 80 mg Chlorhexidine Gluconate (Hibiclens For Decolonization -) 1 applic TP HS [facility] Last Admin: 07/24/16 21:49 Dose: Not Given Cholecalciferol (Vitamin D3 -) 1,000 unit PO DAILY [facility] Last Admin: 07/25/16 09:32 Dose: 1,000 unit Clopidogrel Bisulfate (Plavix -) 75 mg PO DAILY [facility] Last Admin: 07/25/16 09:32 Dose: 75 mg Febuxostat (Uloric -) 80 mg PO DAILY [facility] Last Admin: 07/25/16 09:32 Dose: 80 mg Ferrous Sulfate (Feosol -) 325 mg PO DAILY [facility] Last Admin: 07/25/16 09:31 Dose: 325 mg Gabapentin (Neurontin -) 300 mg PO BID [facility] Last Admin: 07/25/16 09:31 Dose: 300 mg Insulin Aspart (Novolog Mix 70/30 Vial) 30 units SQ BIDAC [facility] Last Admin: 07/25/16 06:29 Dose: 15 units Insulin Aspart (Novolog Vial Sliding Scale -) 1 vial SQ ACHS [facility] PRN Reason: Protocol Last Admin: 07/25/16 11:40 Dose: 2 units Loratadine (Claritin -) 10 mg PO HS [facility] Last Admin: 07/24/16 21:48 Dose: 10 mg Magnesium Oxide (Mag-Ox -) 400 mg PO DAILY [facility] Last Admin: 07/25/16 09:31 Dose: 400 mg Mupirocin (Bactroban Ointment (For Decolonization) -) 1 applic NS BID [facility] Stop: 07/28/16 21:59 Last Admin: 07/25/16 09:36 Dose: Not Given Torsemide (Demadex -) 40 mg PO DAILY [facility] Last Admin: 07/25/16 09:31 Dose: 40 mg Gen: NAD at rest Heart: RRR Lung: decreased breath sounds at the bases Abd: soft, nontender, obese Ext: chronic changes Laboratory Results - last 24 hr 07/24/16 07/24/16 07/24/16 11:48 16:18 16:19 WBC RBC Hgb Hct MCV MCHC RDW Plt Count MPV Sodium Potassium Chloride Carbon Dioxide Anion Gap BUN Creatinine Creat Clearance w eGFR POC Glucometer [phone] 65 194 Random Glucose Calcium Total Bilirubin AST ALT Alkaline Phosphatase Total Protein Albumin 07/24/16 07/25/16 07/25/16 21:43 05:28 10:55 WBC 5.8 RBC 4.36 Hgb 11.8 Hct 35.9 MCV 82.3 MCHC 32.9 RDW 15.9 Plt Count 139 MPV 8.1 Sodium Potassium Chloride Carbon Dioxide Anion Gap BUN Creatinine Creat Clearance w eGFR POC Glucometer 172 147 Random Glucose Calcium Total Bilirubin AST ALT Alkaline Phosphatase Total Protein Albumin 07/25/16 10:55 WBC RBC Hgb Hct MCV MCHC RDW Plt Count MPV Sodium 141 Potassium 4.5 Chloride 109 H Carbon Dioxide 26 Anion Gap 6 L BUN 50 H D Creatinine 1.3 D Creat Clearance w eGFR 56.31 POC Glucometer Random Glucose 217 H D Calcium 8.3 L Total Bilirubin 0.5 AST 30 D ALT 26 D Alkaline Phosphatase 105 Total Protein 6.4 Albumin 2.9 L ASSESSMENT AND PLAN: Bradycardia Acute on Chronic Renal Failure Leukemia Paroxysmal Atrial Fibrillation CAD LV Diastolic Dysfunction HTN Hyperlipidemia - holding beta rashida - Anticoagulation - Should have formal OSAS w/up after D/C - Telemetry monitoring Dr Monet
--- NOTE | 2016-07-25 12:06 | PN ---
Progress Note (short form) - Note Progress Note: cc: dizzy, bradycardia o: feeling better, no cp/sob/palps/dizzy/loc. Vital Signs Period Temp Pulse Resp BP Sys/Reddy Pulse Ox Last 24 Hr 97.3 F-98.5 F 56-64 18-22 116-147/45-99 98-99 Constitutional: Yes: No Distress, Obese Eyes: No: Sclera Icterus HENT: No: Nasal Congestion Respiratory: Yes: CTA Bilaterally. No: Accessory Muscle Use, Rales, Wheezes Gastrointestinal: Yes: Normal Bowel Sounds. No: Distention, Hepatomegaly, Palpable Mass, Tenderness Cardiovascular: Yes: Regular Rate and Rhythm JVD: No Heart Sounds: Yes: S1, S2. No: Gallop Murmur: No: Systolic Murmur, Diastolic Murmur Extremities: No: Cool, Cyanosis Edema: No Peripheral Pulses: pos dp pt Integumentary: No jaundice diaphoresis Neurological: Yes: Alert, Oriented (x3) Psychiatric: No: Agitated Current Medications Generic Name Dose Route Start Last Admin Trade Name Lisbeth PRN Reason Stop Dose Admin Apixaban 5 mg 07/24/16 10:00 07/25/16 09:31 Eliquis - PO 5 mg BID JENNY Administration Atorvastatin Calcium 80 mg 07/23/16 22:00 07/24/16 21:48 Lipitor - PO 80 mg HS JENNY Administration Chlorhexidine Gluconate 1 applic 07/23/16 22:00 07/24/16 21:49 Hibiclens For Decolonization - TP Not Given HS JENNY Cholecalciferol 1,000 unit 07/24/16 10:00 07/25/16 09:32 Vitamin D3 - PO 1,000 unit DAILY JENNY Administration Clopidogrel Bisulfate 75 mg 07/24/16 10:00 07/25/16 09:32 Plavix - PO 75 mg DAILY JENNY Administration Febuxostat 80 mg 07/24/16 10:00 07/25/16 09:32 Uloric - PO 80 mg DAILY JENNY Administration Ferrous Sulfate 325 mg 07/24/16 10:00 07/25/16 09:31 Feosol - PO 325 mg DAILY JENNY Administration Gabapentin 300 mg 07/23/16 22:00 07/25/16 09:31 Neurontin - PO 300 mg BID JENNY Administration Insulin Aspart 30 units 07/24/16 12:00 07/25/16 06:29 Novolog Mix 70/30 Vial SQ 15 units BIDAC JENNY Administration Insulin Aspart 1 vial 07/24/16 16:30 07/25/16 11:40 Novolog Vial Sliding Scale - SQ 2 units ACHS JENNY Administration Protocol Loratadine 10 mg 07/23/16 22:00 07/24/16 21:48 Claritin - PO 10 mg HS JENNY Administration Magnesium Oxide 400 mg 07/24/16 10:00 07/25/16 09:31 Mag-Ox - PO 400 mg DAILY JENNY Administration Mupirocin 1 applic 07/23/16 22:00 07/25/16 09:36 Bactroban Ointment (For Decolonization) - NS 07/28/16 21:59 Not Given BID JENNY Torsemide 40 mg 07/25/16 10:00 07/25/16 09:31 Demadex - PO 40 mg DAILY JENNY Administration CBC, BMP 07/25/16 10:55 07/25/16 10:55 ekg 07/23 (ER): sinus gabriela 43bpm with sinus arrhythmia present; 1st degr AVB; normal axis, normal QRS/QT intervals; no path q's; no ST shifts or TWIs cxr: clear lungs Echo 03/27: nl LV/EF; nl RV; valve fxn WNL tele: SR 60s a/p: 60 m hx cad s/p pci (10/2012 darryn to pLCx and dLCx, residual 30-50% in mRCA, pLAD, mLAD), dchf, venous insuff, morbid obesity, ckd, htn, hld, dm, pafib, dvt , foot ulcers, leukemia here for symptomatic sinus bradycardia. dizziness, bradycardia: -sx's sound positional. not clear was due to bradycardia (pt frequently uses pulse-ox monitor at home and has not seen HR below 40s which is rare, usually 50 -60). -however gabriela 30s at pmd day of admit -ZHANG suggestive he has had low cardiac output-->renal hypoperfusion for several days -after holding bb and diuretic his HR and dizziness have improved -tele shows no pathologic bradyarrhythmias paroxysmal Afib/sinus gabriela -reportedly AF with mildly rapid HR 109 at some point during recent hosp stay --in sinus in office with lindsay later that month -sinus gabriela to 30s at pmd today, 43 here in ER -currently in icu tele has shown HR 50s-60s, no pathologic bradyarrhythmias, no more dizzy sx's -tsh wnl -sss vs bb effect -bb has now been discontinued, avoid meds that cause bradycardia -since HR improved off metoprolol, and remains in sinus, will defer PM and observe--if has rapid AF in future will need PM to allow adequate BB dose -cont home eliquis CAD: -no signs acs, ce's negx2 -prior DARRYN x 2 to prox and dist Lcx 2012; no residual obstructive dz then (30-50 % LAD, mild RCA) -post-prandial CP here 05/27, cardiac enzymes negative--pt's weight exceeds limit [facility], and cath deferred given atypical sx's with no recurrence in office with lindsay, and CKD with hi risk of C.I.N. -cont home med regimen of plavix (plus eliquis), atorva 20, diovan 160 HFpEF/venous insuff/edema -well-compensated, no sob; -on torsemide 50 at home--have held 2/2 to zhang, cr improving, now resumed HTN -controlled -holding diovan until creat back to baseline ZHANG on CKD -baseline creat ranges 1.2-1.6 on prior admits here -creat up initially, likely prerenal, now improved cardiac kuo stable for dc. metoprolol has been discontinued.
--- NOTE | 2016-07-25 13:08 | DS ---
Physical Examination Vital Signs: Vital Signs Temperature 98 F 07/25/16 10:00 Pulse Rate 57 L 07/25/16 10:00 Respiratory Rate 18 07/25/16 10:00 Blood Pressure 116/45 07/25/16 10:00 O2 Sat by Pulse Oximetry (%) 98 07/25/16 09:00 Labs: CBC, BMP 07/25/16 10:55 07/25/16 10:55 Discharge Summary Reason For Visit: SYMPTOMATIC BRADYCARDIA Current Active Problems Symptomatic bradycardia (Acute) Condition: Improved - Instructions Diet, Activity, Other Instructions: ONE WEEK FOLLOW UP TO REVIEW MEDS NO METOPROLOL OR DIOVAN TILL NEXT VISIT BLOOD TEST FOR KIDNEY Referrals: Diomedes Neil MD [Primary Care Provider] - 1 Week Disposition: HOME - Home Medications Comprehensive Discharge Medication List: Ambulatory Orders Cholecalciferol (Vitamin D3) [Vitamin D3 -] 1,000 unit PO DAILY 05/17/16 Clopidogrel Bisulfate [Plavix -] 75 mg PO DAILY 05/17/16 Cyclosporine [Sandimmune] 100 mg PO DAILY 05/17/16 Febuxostat [Uloric -] 80 mg PO DAILY 05/17/16 Ferrous Sulfate [Feosol] 325 mg PO DAILY 05/17/16 Gabapentin 300 mg PO BID 05/17/16 Magnesium Oxide [Magnesium] 400 mg PO DAILY 05/17/16 Potassium Chloride [K-Dur -] 20 meq PO DAILY 05/17/16 Atorvastatin Ca [Lipitor] 80 mg PO DAILY 07/23/16 Cetirizine HCl [Zyrtec -] 10 mg PO HS 07/23/16 Insulin (Novolog 70/30) [Novolog Mix 70/30 Flexpen -] 30 units SQ BIDAC Apixaban [Eliquis -] 5 mg PO BID tablet 07/25/16 Torsemide [Demadex -] 40 mg PO DAILY tablet 07/25/16
[2016-07-25 15:28] VITALS: BP 135/64; PULSE 68; TEMP 97.5
--- NOTE | 2016-07-25 16:41 | PN ---
Progress Note, Physician History of Present Illness: Pt seen and examined at bedside. He is awake and alert. He says he feels better today. - Current Medication List Current Medications: Active Medications Apixaban (Eliquis -) 5 mg PO BID [facility] Last Admin: 07/25/16 09:31 Dose: 5 mg Atorvastatin Calcium (Lipitor -) 80 mg PO HS [facility] Last Admin: 07/24/16 21:48 Dose: 80 mg Chlorhexidine Gluconate (Hibiclens For Decolonization -) 1 applic TP HS [facility] Last Admin: 07/24/16 21:49 Dose: Not Given Cholecalciferol (Vitamin D3 -) 1,000 unit PO DAILY [facility] Last Admin: 07/25/16 09:32 Dose: 1,000 unit Clopidogrel Bisulfate (Plavix -) 75 mg PO DAILY [facility] Last Admin: 07/25/16 09:32 Dose: 75 mg Febuxostat (Uloric -) 80 mg PO DAILY [facility] Last Admin: 07/25/16 09:32 Dose: 80 mg Ferrous Sulfate (Feosol -) 325 mg PO DAILY [facility] Last Admin: 07/25/16 09:31 Dose: 325 mg Gabapentin (Neurontin -) 300 mg PO BID [facility] Last Admin: 07/25/16 09:31 Dose: 300 mg Insulin Aspart (Novolog Mix 70/30 Vial) 30 units SQ BIDAC [facility] Last Admin: 07/25/16 06:29 Dose: 15 units Insulin Aspart (Novolog Vial Sliding Scale -) 1 vial SQ ACHS [facility] PRN Reason: Protocol Last Admin: 07/25/16 11:40 Dose: 2 units Loratadine (Claritin -) 10 mg PO HS [facility] Last Admin: 07/24/16 21:48 Dose: 10 mg Magnesium Oxide (Mag-Ox -) 400 mg PO DAILY [facility] Last Admin: 07/25/16 09:31 Dose: 400 mg Mupirocin (Bactroban Ointment (For Decolonization) -) 1 applic NS BID [facility] Stop: 07/28/16 21:59 Last Admin: 07/25/16 09:36 Dose: Not Given Torsemide (Demadex -) 40 mg PO DAILY [facility] Last Admin: 07/25/16 09:31 Dose: 40 mg - Objective Vital Signs: Vital Signs Temperature 97.5 F L 07/25/16 15:00 Pulse Rate 68 07/25/16 15:00 Respiratory Rate 18 07/25/16 15:00 Blood Pressure 135/64 07/25/16 15:00 O2 Sat by Pulse Oximetry (%) 98 07/25/16 09:00 Constitutional: Yes: Calm Eyes: Yes: Conjunctiva Clear HENT: Yes: Atraumatic Neck: Yes: Supple Cardiovascular: Yes: S1, S2 Respiratory: Yes: CTA Bilaterally Gastrointestinal: Yes: Soft, Abdomen, Obese Genitourinary: Yes: WNL Musculoskeletal: Yes: WNL Edema: Yes Edema: LLE: 1+, RLE: 1+ Neurological: Yes: Oriented Psychiatric: Yes: Oriented Labs: CBC, BMP 07/25/16 10:55 07/25/16 10:55 INR, PTT INR 1.33 (0.82-1.09) H 07/23/16 12:05 Problem List - Problems (1) Symptomatic bradycardia Code(s): R00.1 - BRADYCARDIA, UNSPECIFIED (2) ZHANG (acute kidney injury) Code(s): N17.9 - ACUTE KIDNEY FAILURE, UNSPECIFIED (3) Afib Code(s): I48.91 - UNSPECIFIED ATRIAL FIBRILLATION Qualifiers: Atrial fibrillation type: unspecified Qualified Code(s): I48.91 - Unspecified atrial fibrillation (4) CAD (coronary artery disease) Code(s): I25.10 - ATHSCL HEART DISEASE OF [place] CORONARY ARTERY W/O ANG PCTRS (5) CHF (congestive heart failure) Code(s): I50.9 - HEART FAILURE, UNSPECIFIED (6) CKD (chronic kidney disease) Code(s): N18.9 - CHRONIC KIDNEY DISEASE, UNSPECIFIED (7) Lymphoma Code(s): C85.90 - NON-[place] LYMPHOMA, UNSPECIFIED, UNSPECIFIED SITE Assessment/Plan Current Medications Generic Name Dose Route Start Last Admin Trade Name Freq PRN Reason Stop Dose Admin Apixaban 5 mg 07/24/16 10:00 07/25/16 09:31 Eliquis - PO 5 mg BID JENNY Administration Atorvastatin Calcium 80 mg 07/23/16 22:00 07/24/16 21:48 Lipitor - PO 80 mg HS JENNY Administration Chlorhexidine Gluconate 1 applic 07/23/16 22:00 07/24/16 21:49 Hibiclens For Decolonization - TP Not Given HS JENNY Cholecalciferol 1,000 unit 07/24/16 10:00 07/25/16 09:32 Vitamin D3 - PO 1,000 unit DAILY JENNY Administration Clopidogrel Bisulfate 75 mg 07/24/16 10:00 07/25/16 09:32 Plavix - PO 75 mg DAILY JENNY Administration Febuxostat 80 mg 07/24/16 10:00 07/25/16 09:32 Uloric - PO 80 mg DAILY JENNY Administration Ferrous Sulfate 325 mg 07/24/16 10:00 07/25/16 09:31 Feosol - PO 325 mg DAILY JENNY Administration Gabapentin 300 mg 07/23/16 22:00 07/25/16 09:31 Neurontin - PO 300 mg BID JENNY Administration Insulin Aspart 30 units 07/24/16 12:00 07/25/16 06:29 Novolog Mix 70/30 Vial SQ 15 units BIDAC JENNY Administration Insulin Aspart 1 vial 07/24/16 16:30 07/25/16 11:40 Novolog Vial Sliding Scale - SQ 2 units ACHS JENNY Administration Protocol Loratadine 10 mg 07/23/16 22:00 07/24/16 21:48 Claritin - PO 10 mg HS JENNY Administration Magnesium Oxide 400 mg 07/24/16 10:00 07/25/16 09:31 Mag-Ox - PO 400 mg DAILY JENNY Administration Mupirocin 1 applic 07/23/16 22:00 07/25/16 09:36 Bactroban Ointment (For Decolonization) - NS 07/28/16 21:59 Not Given BID JENNY Torsemide 40 mg 07/25/16 10:00 07/25/16 09:31 Demadex - PO 40 mg DAILY JENNY Administration Laboratory Tests 07/24/16 05:15 Cyclosporine Trough Pending Impression 1. CKD 2. ZHANG 3. cellulitis 4. morbid obesity 5. DM 6. PVD 7. Gout 8. Large cell granular leukemia/lymphoma 9. anemia 10. bradycardia and hypotension Plan - renal function has improved - follow up cyclosporine level - can restart diuretics - recommend weight loss - discussed diet - can also restart potassium supplements Dr Anderson
== END 2016-07-25 17:01 | disposition home or self-care (01) | DRG 683 ==
LOC: JER 11:46 → JERBED 13:06 → J4S 15:00 → JERBED 15:14 → JICU 15:29 → J4W 07-24 16:03
PROVIDERS: ADMIT Family Medicine; ATTEND Family Medicine
DX: N17.9 Acute kidney failure, unspecified (principal); Z68.43 Body mass index [BMI] 50.0-59.9, adult; C85.90 Non-Hodgkin lymphoma, unspecified, unspecified site; I13.0 Hypertensive heart and chronic kidney disease with heart failure and stage 1 through stage 4 chronic kidney disease, or unspecified chronic kidney disease; I50.32 Chronic diastolic (congestive) heart failure; L03.90 Cellulitis, unspecified; I25.10 Atherosclerotic heart disease of native coronary artery without angina pectoris; E66.01 Morbid (severe) obesity due to excess calories; E78.00 Pure hypercholesterolemia, unspecified; I48.91 Unspecified atrial fibrillation; K21.9 Gastro-esophageal reflux disease without esophagitis; E11.42 Type 2 diabetes mellitus with diabetic polyneuropathy; I48.0 Paroxysmal atrial fibrillation; N18.9 Chronic kidney disease, unspecified; M10.9 Gout, unspecified; T44.7X5A Adverse effect of beta-adrenoreceptor antagonists, initial encounter; D64.9 Anemia, unspecified; R00.1 Bradycardia, unspecified; I73.9 Peripheral vascular disease, unspecified; Z89.422 Acquired absence of other left toe(s); Z86.718 Personal history of other venous thrombosis and embolism; Z95.5 Presence of coronary angioplasty implant and graft
CPT/HCPCS: 36415; 71010-TC; 80048; 80053; 80158; 81003; 82436; 82550; 82570; 83036; 83735; 83880; 84100; 84133; 84156; 84300; 84443; 84484; 84540; 85025; 85027; 85610; 87081; 93005; 93010; 97116-GP; 97161-GP; 99285-25; J7502

== ENCOUNTER 2016-12-03 08:27 | Day surgery (SDC) | payer OTHER ==
[2016-12-03 08:57] VITALS: BMI 52.8
[2016-12-03] MEDS ORDERED: PROPOFOL 20 ML ONE ×2 (09:10)
[2016-12-03] MEDS ORDERED: LIDOCAINE HCL/PF 2% SDV 5ML VIAL ONE (09:10)
[2016-12-03 09:55] VITALS: TEMP 97.9
[2016-12-03 10:53] VITALS: BP 136/55; PULSE 66
--- NOTE | 2016-12-04 11:45 | PATH ---
Surgical Pathology Report Patient Name: ESTEFANIA WAKEFIELD [facility]. Rec. #: [id number] /Age/Gender: 1955 (Age: 61) / M Account: [id number] Location: [facility]-ENDOSCOPY Taken: 12/03/2016 Received: 12/03/2016 Reported: 12/04/2016 Physicians: Gianni Devlin M.D. Specimen(s) Received BX DISTAL TRANSVERSE COLON POLYP Clinical History History of colon polyp, rectal bleeding, rectal pain Polyp Final Diagnosis DISTAL TRANSVERSE COLON, BIOPSY: TUBULAR ADENOMA. Electronically Signed Beba Cox M.D. Gross Description Received in formalin, labeled "distal transverse colon polyp" are 2 vega, irregular portions of soft tissue measuring 0.4 and 0.5 cm. in greatest dimension. The specimens are submitted in toto in one cassette. /12/03/2016 saudi12/03/2016
== END 2016-12-03 10:35 | disposition home or self-care (01) ==
LOC: JASU-ENDO 08:27
PROVIDERS: ATTEND Internal Medicine Gastroenterology
PROC: 0DBL8ZX Excision of Transverse Colon, Via Natural or Artificial Opening Endoscopic, Diagnostic (ICD-10-PCS; principal; 2016-12-03 09:00)
DX: K62.5 Hemorrhage of anus and rectum (principal); D12.3 Benign neoplasm of transverse colon
CPT/HCPCS: 88305-TC

== ENCOUNTER 2018-09-22 10:15 | Emergency (ER) | payer OTHER | END 2018-09-22 11:26 | disposition home or self-care (01) | LOC: JERFT 10:15 ==

== ENCOUNTER 2018-10-10 13:56 | Inpatient (IN) | payer OTHER ==
--- NOTE | 2018-10-10 14:03 | PDOC ---
History of Present Illness - General Stated Complaint: CHEST PAIN Time Seen by Provider: 10/10/18 14:03 History Source: Patient, Family - History of Present Illness Initial Comments: 10/10/18 14:35 Mr. Tamez is a 63 y/o man with hx active leukemia (large granular t cell lymphoma), afib on eliquis, cardiac stenting x2 (most recent - 2012), CHF, HLD, HTN presenting with approx one hour of shaking chills and chest pain. He is accompanied by his family. He reports a few days of ongoing lower extremity edema, but otherwise feeling well this morning with no symptoms. He reports going to the grocery store in the early afternoon, walking through the store without difficulty, and going home and cooking lunch. He reports feeling fatigued after returning home and went to lay down in his bed, when he began experiencing shaking chills and mild chest pain in the center of his chest. He denies any radiation of the pain anywhere. He reports some shortness of breath on exertion but endorses that he was able to complete his grocery shopping earlier today without incident. When his family saw him shaking, they became concerned and brought him for evaluation. PCP: Dr. Neil Inpatient Services Director: Dr. Toribio Past History - Past Medical History Allergies/Adverse Reactions: Allergies Allergy/AdvReac Type Severity Reaction Status Date / Time No Known Drug Allergies Allergy Verified 10/10/18 14:30 Home Medications: Ambulatory Orders Clopidogrel Bisulfate [Plavix -] 75 mg PO DAILY 05/17/16 Cyclosporine [Sandimmune] 100 mg PO DAILY 05/17/16 Gabapentin 300 mg PO BID 05/17/16 Potassium Chloride [K-Dur -] 20 meq PO DAILY 05/17/16 Atorvastatin Ca [Lipitor] 40 mg PO DAILY 07/23/16 Apixaban [Eliquis -] 5 mg PO BID tablet 07/25/16 Colchicine 0.6 mg PO DAILY 12/02/16 Torsemide [Demadex -] 100 mg PO DAILY 12/02/16 Valsartan 160 mg PO DAILY 12/02/16 Allopurinol 0 mg PO DAILY 10/10/18 Hydralazine HCl 25 mg PO DAILY 10/10/18 Meclizine HCl [Antivert -] 1 tab PO PRN 10/10/18 Trulicity 0 units SQ DAILY 10/10/18 Anemia: Yes Asthma: No Cancer: Yes (Yes; leukemia Large granular t cell lymphoma) Cardiac Disorders: Yes (2 cardiac stents 2012; AFIB) CVA: No COPD: No CHF: Yes Dementia: No Diabetes: Yes (20 years ago IDDM) GI Disorders: No Disorders: No HTN: Yes Hypercholesterolemia: Yes Liver Disease: No Seizures: No Thyroid Disease: No - Surgical History Abdominal Surgery: No Appendectomy: No Cardiac Surgery: Yes (stents 2012) Cholecystectomy: No Lung Surgery: No Neurologic Surgery: No Orthopedic Surgery: Yes (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) - Immunization History Immunization Up to Date: No - Suicide/Smoking/Psychosocial Hx Smoking Status: Yes Smoking History: Never smoked Have you smoked in the past 12 months: No Number of Cigarettes Smoked Daily: 0 Hx Alcohol Use: No Drug/Substance Use Hx: No Substance Use Type: None Hx Substance Use Treatment: No Review of Systems - Review of Systems Able to Perform ROS?: Yes Comments:: 10/10/18 16:36 ROS: GENERAL/CONSTITUTIONAL: Fever or chills. No weakness. HEAD, EYES, EARS, NOSE AND THROAT: No change in vision. No ear pain or discharge. No sore throat. CARDIOVASCULAR: Chest pain. No shortness of breath RESPIRATORY: Cough, wheezing. No hemoptysis. GASTROINTESTINAL: No nausea, vomiting, diarrhea or constipation. GENITOURINARY: No dysuria, frequency, or change in urination. MUSCULOSKELETAL: No joint or muscle swelling or pain. No neck or back pain. SKIN: No rash NEUROLOGIC: No headache, vertigo, loss of consciousness, or change in strength/ sensation. ENDOCRINE: No increased thirst. No abnormal weight change HEMATOLOGIC/LYMPHATIC: No anemia, easy bleeding, or history of blood clots. ALLERGIC/IMMUNOLOGIC: No hives or skin allergy. *Physical Exam - Physical Exam Comments: 10/10/18 16:36 PE: GENERAL: Awake, alert, and fully oriented. Rigors. Pale. Warm to the touch. HEAD: No signs of trauma, normocephalic, atraumatic EYES: PERRLA, EOMI, sclera anicteric, conjunctiva clear ENT: Auricles normal inspection, hearing grossly normal, nares patent, oropharynx clear without exudates. Moist mucosa NECK: Normal ROM, supple, no lymphadenopathy, JVD, or masses LUNGS: Wheezing noted in bilateral bases. No distress, speaks full sentences HEART: Regular rate and rhythm, normal S1 and S2, no murmurs, rubs or gallops, peripheral pulses normal and equal bilaterally. ABDOMEN: Soft, nontender, normoactive bowel sounds. No guarding, no rebound. No masses EXTREMITIES : Normal inspection, Normal range of motion, no edema. Healing wound of R thigh. No clubbing or cyanosis NEUROLOGICAL: Normal speech, no focal sensorimotor deficits SKIN: Warm, Dry, normal turgor ED Treatment Course - LABORATORY CBC & Chemistry Diagram: 10/10/18 14:37 10/10/18 14:37 Medical Decision Making - Medical Decision Making 10/10/18 14:30 63 y/o M with hx active leukemia (large granular t cell lymphoma) in treatment, afib, HTN, HLD, CHF, presenting with one hour of rigors, fever, and chest pain. Differential includes sepsis vs pneumonia given shaking chills and fever, as well as ACS given chest pain, prior cardiac stenting, hx heart disease. CHF also possible given LE edema, but would not fully explain fever or chills. Plan: CBC CMP EKG CXR UA Urine culture Lactate Blood cultures Cardiac profile Dispo: Likely admit 10/10/18 14:57 Vanc/zosyn ordered 10/10/18 15:47 Potassium resulted 6.0. Repeat ordered. Repeat EKG ordered now that rigors have resolved. Lactate - 2.2 10/10/18 16:[address] Grant (covering Dr. Neil) 10/10/18 16:[address] Grant - patient admitted to telemetry *DC/Admit/Observation/Transfer Diagnosis at time of Disposition: Pneumonia Qualifiers: Pneumonia type: due to unspecified organism Laterality: unspecified laterality Lung location: unspecified part of lung Qualified Code(s): J18.9 - Pneumonia, unspecified organism - Discharge Dispostion Condition at time of disposition: Guarded Decision to Admit order: Yes - Referrals Referrals: Diomedes Neil MD [Primary Care Provider] - - Patient Instructions - Post Discharge Activity
[2018-10-10] MEDS ORDERED: ACETAMINOPHEN 1000 MG/100 ML VIAL (NON FORMULARY) IVPB ONE ×2 (14:42→21:41)
[2018-10-10] MEDS ORDERED: ACETAMINOPHEN INJECTION 100 ML IVPB ONE (14:45)
[2018-10-10 14:50] LABS: MONO % 9.1 % (3.8-10.2)
[2018-10-10] MEDS ORDERED: PIPERACILLIN/TAZOB 2.25 GM 2.25 GM in DEXTROSE 5%-WATER - 50 ML IVPB ONE (14:54)
[2018-10-10] MEDS ORDERED: VANCOMYCIN 1 GM in D5W (PRE-DOCKED) 1,000 MG/250 ML IVPB ONE (14:54)
[2018-10-10] MEDS ORDERED: PIPERACILLIN/TAZOB 2.25 GM 2.25 GM/50 ML BAG IVPB ONE (15:07)
[2018-10-10 15:19] LABS: ALBUMIN 3.2 g/dl (3.4-5.0); BILIRUBIN,TOTAL 0.8 mg/dL (0.2-1); BLOOD UREA NITROGEN 37.1 mg/dL (7-18); CALCIUM 8.1 mg/dL (8.5-10.1); CREATININE 1.5 mg/dL (0.55-1.3); TOT PROT 7.4 g/dl (6.4-8.2)
[2018-10-10 15:28] LABS: BASO % 0.7 % (0-2.0); EOS % 2.4 % (0-4.5); HEMATOCRIT 33.6 % (35.4-49); HEMOGLOBIN 11.1 GM/dL (11.7-16.9); LYMPH % 22.2 % (8-40); MCH 28.6 pg (25.7-33.7); MEAN CELL VOLUME 86.8 fl (80-96); MEAN PLT VOLUME 9.5 fl (7.5-11.1); NEUT % 65.6 % (42.8-82.8); PLATELET COUNT 198 K/MM3 (134-434); RBC 3.88 M/mm3 (4.00-5.60); RDW 17.9 % (11.9-15.9); WHITE BLOOD COUNT 5.8 K/mm3 (4.0-10.0)
[2018-10-10 15:51] LABS: URINE APPEARANCE Clear; URINE BILIRUBIN Negative (NEGATIVE); URINE COLOR Yellow; URINE GLUCOSE (UA) Negative (NEGATIVE); URINE KETONE Negative (NEGATIVE); URINE LEUK ESTERASE Negative (NEGATIVE); URINE NITRITE Negative (NEGATIVE); URINE PROTEIN 3+ (NEGATIVE); URINE UROBILINOGEN 0.2 mg/dL (0.2-1.0)
[2018-10-10] MEDS ORDERED: VANCOMYCIN 1 GRAM (PRE-DOCKED) 1,000 MG/250 ML BAG IVPB ONE (16:04)
--- NOTE | 2018-10-10 16:09 | PDOC ---
Documentation entered by Fifi Michelle SCRIBE, acting as scribe for Faith Galdamez MD. Faith Galdamez MD: This documentation has been prepared by the Miguel Angel carney Xhesika, SCRIBE, under my direction and personally reviewed by me in its entirety. I confirm that the documentation accurately reflects all work, treatment, procedures, and medical decision making performed by me. 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 Patient states he went to the Grocery store in the afternoon, came back, cooked lunch, felt fatigued when he returned home, went to lay down and shortly after his symptoms began. Patient states he has been experiencing a couple of days of lower extremity edema and shortness of breath on exertion. does have nausea, no vomiting. has had chronic leg swelling worse on right leg. cough nonproductive. no abd pain The patient denies headache and dizziness. Denies cough, nausea, vomiting, diarrhea and constipation. Denies dysuria, frequency, urgency and hematuria. Allergies: NKDA PCP: Dr. Neil Print Finishing Worker: Dr. Toribio 10/10/18 16:05 - Physicial Exam PE: 10/10/18 16:05 awake alert lungs with crackles at bases. decreased at bases. normal effort. heart reg tachycardia. abs soft nt obese. ext wwp. bilat brawning edema. right leg greater than left. mild erythema right leg and warmth. nuero alert oriented x 3. - Medical Decision Making 10/10/18 16:07 63 yo M with h/o leukemia, chf copd, htn dm with sob cough and rigors pt rigoring on arrival. rectal temp 100.4 decreased breath sounds on exam. plan septic workup, doppler legs, cxr ekg . will treat broad spectrum abx. tylenol for fever. cxr with congestion and infiltrate right base. focused eD TTE performed, good contractility. trace pericardial effusion noted. no rv dilation or strain. lungs with b lines bilat bases , anteriorly a line predominant. noted bronchograms at right base c/w pneumonia. plan abx admit. dr boucher serviced paged, awaiting call back. Heart Score/ECG Review #1 General ECG Interpretation: Sinus Rhythm, Normal Intervals, No acute ischemic changes Compared to previous ECG there are: Other (sinus tachycardia 126. left axis.) #2 General ECG Interpretation: Sinus Rhythm, Normal Rate (68), Normal Intervals, No acute ischemic changes
[2018-10-10 17:31] LABS: BLOOD UREA NITROGEN 36.5 mg/dL (7-18); CALCIUM 7.5 mg/dL (8.5-10.1); CREATININE 1.5 mg/dL (0.55-1.3); POTASSIUM 5.3 mmol/L (3.5-5.1)
[2018-10-10] MEDS ORDERED: ACETAMINOPHEN 500 MG TABLET (FP) PO ONE (21:57)
--- NOTE | 2018-10-10 22:24 | HP ---
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 Who presents to the ED with his family for shakiness, chills which started this afternoon, chest pain on exertion, increased lower extremity edema, and fatigue. Patient reports feeling his usual self this AM, cooking and shopping. Patient reports that in the afternoon he felt very cold and was uncontrollably shaking. He reports having a burning sensation to his midsternum. Patient reports having CP on exertion- resolved. Patient reports having a pending ECHO and Stress Test scheduled for this week- Dr Toribio and an appointment with Dr Schaffer for venous insufficiency. Patient denies recent sick exposure or recent travel. Patient denies FOURNIER, dizziness, palpitations, AP, N/V/D, constipation, dysuria History Source: Patient, Family Member Limitations to Obtaining History: No Limitations - Past Medical History [employer]: Yes: Peripheral Neuropathy Cardiovascular: Yes: AFIB, CAD, CHF, HTN, Hyperlipdemia Gastrointestinal: Yes: GERD Renal/: Yes: Renal Inusuff, Other (gopal) Heme/Onc: Yes: Anemia Infectious Disease: Yes: Other (osteomyelitis of left fifth metartarsal 2011) Endocrine: Yes: Diabetes Mellitus - Past Surgical History Past Surgical History: Yes: Stent (X2) - Smoking History Smoking history: Never smoked Have you smoked in the past 12 months: No Aproximately how many cigarettes per day: 0 - Alcohol/Substance Use Hx Alcohol Use: No History of Substance Use: reports: None - Social History ADL: Independent History of Recent Travel: No Home Medications - Allergies Allergies/Adverse Reactions: Allergies Allergy/AdvReac Type Severity Reaction Status Date / Time No Known Drug Allergies Allergy Verified 10/10/18 14:30 - Home Medications Home Medications: Ambulatory Orders Clopidogrel Bisulfate [Plavix -] 75 mg PO DAILY 05/17/16 Cyclosporine [Sandimmune] 100 mg PO BID 05/17/16 Gabapentin 300 mg PO BID 05/17/16 Potassium Chloride [K-Dur -] 20 meq PO DAILY 05/17/16 Atorvastatin Ca [Lipitor] 40 mg PO DAILY 07/23/16 Apixaban [Eliquis -] 5 mg PO BID tablet 07/25/16 Colchicine 0.6 mg PO DAILY 12/02/16 Torsemide [Demadex -] 50 mg PO DAILY 12/02/16 Valsartan 160 mg PO DAILY 12/02/16 Allopurinol 100 mg PO DAILY 10/10/18 Hydralazine HCl 25 mg PO DAILY 10/10/18 Meclizine HCl [Antivert -] 1 tab PO PRN 10/10/18 Trulicity 0 units SQ DAILY 10/10/18 Family Disease History - Family Disease History Family Disease History: Diabetes: Father, Mother, Heart Disease: Father, Mother , Brother Review of Systems - Review of Systems Constitutional: reports: Chills, Diaphoresis, Fever Eyes: reports: No Symptoms HENT: reports: No Symptoms Neck: reports: No Symptoms Cardiovascular: reports: Chest Pain, Edema, Shortness of Breath Respiratory: reports: Cough, SOB, SOB on Exertion Gastrointestinal: reports: No Symptoms Genitourinary: reports: No Symptoms Breasts: reports: No Symptoms Reported Musculoskeletal: reports: Joint Swelling, Muscle Weakness Integumentary: reports: Erythema, Wound Neurological: reports: Weakness Endocrine: reports: No Symptoms Hematology/Lymphatic: reports: No Symptoms Psychiatric: reports: No Symptoms Pain Intensity: 3 Physical Examination Vital Signs: Vital Signs Temperature 101.2 F H 10/10/18 21:43 Pulse Rate 63 10/10/18 21:43 Respiratory Rate 24 H 10/10/18 21:43 Blood Pressure 163/54 L 10/10/18 21:43 O2 Sat by Pulse Oximetry (%) 99 10/10/18 21:43 Constitutional: Yes: Well Nourished, No Distress, Calm, Obese Eyes: Yes: WNL, Conjunctiva Clear, EOM Intact, PERRL HENT: Yes: WNL, Atraumatic, Normocephalic Neck: Yes: WNL, Supple, Trachea Midline Cardiovascular: Yes: Bradycardia, S1, S2 Respiratory: Yes: Diminished, On Nasal O2, SOB, SOB on Exertion Gastrointestinal: Yes: Normal Bowel Sounds, Soft, Abdomen, Obese ...Rectal Exam: Yes: Deferred Renal/: Yes: WNL Breast(s): Yes: WNL Extremities: Yes: Erythema Edema: Yes Edema: LLE: 2+, RLE: 3+ Peripheral Pulses WNL: Yes Integumentary: Yes: Erythema, Venous Stasis Changes Neurological: Yes: WNL, Alert, Oriented, Cran Nerves II-XII Intact ...Motor Strength: WNL Psychiatric: Yes: WNL, Alert, Oriented Labs: CBC, BMP 10/10/18 14:37 10/10/18 17:02 Laboratory Results - last 24 hr 10/10/18 10/10/18 10/10/18 14:37 14:37 14:37 WBC 5.8 RBC 3.88 L Hgb 11.1 L Hct 33.6 L MCV 86.8 MCH 28.6 MCHC 33.0 RDW 17.9 H Plt Count 198 D MPV 9.5 D Absolute Neuts (auto) 3.8 Neutrophils % 65.6 D Lymphocytes % 22.2 D Monocytes % 9.1 Eosinophils % 2.4 Basophils % 0.7 Nucleated RBC % 0 Sodium 137 Potassium 6.0 H Chloride 111 H Carbon Dioxide 19 L Anion Gap 7 L BUN 37.1 H Creatinine 1.5 H Est GFR (CKD-EPI)AfAm 57.01 Est GFR (CKD-EPI)NonAf 49.19 POC Glucometer Random Glucose 147 H Lactic Acid Calcium 8.1 L Total Bilirubin 0.8 AST 38 H ALT 19 Alkaline Phosphatase 163 H Creatine Kinase 165 Creatine Kinase Index 1.0 CK-MB (CK-2) 1.7 Troponin I < 0.02 B-Natriuretic Peptide Total Protein 7.4 Albumin 3.2 L Urine Color Urine Appearance Urine pH Ur Specific [place] Urine Protein Urine Glucose (UA) Urine Ketones Urine Blood Urine Nitrite Urine Bilirubin Urine Urobilinogen Ur Leukocyte Esterase 10/10/18 10/10/18 10/10/18 14:37 15:40 17:02 WBC RBC Hgb Hct MCV MCH MCHC RDW Plt Count MPV Absolute Neuts (auto) Neutrophils % Lymphocytes % Monocytes % Eosinophils % Basophils % Nucleated RBC % Sodium 138 Potassium 5.3 H Chloride 114 H Carbon Dioxide 18 L Anion Gap 6 L BUN 36.5 H Creatinine 1.5 H Est GFR (CKD-EPI)AfAm 57.01 Est GFR (CKD-EPI)NonAf 49.19 POC Glucometer Random Glucose 173 H Lactic Acid 2.2 H* Calcium 7.5 L Total Bilirubin AST ALT Alkaline Phosphatase Creatine Kinase Creatine Kinase Index CK-MB (CK-2) Troponin I B-Natriuretic Peptide Total Protein Albumin Urine Color Yellow Urine Appearance Clear Urine pH 5.0 Ur Specific [place] 1.020 Urine Protein 3+ H Urine Glucose (UA) Negative Urine Ketones Negative Urine Blood 1+ H Urine Nitrite Negative Urine Bilirubin Negative Urine Urobilinogen 0.2 Ur Leukocyte Esterase Negative 10/10/18 22:24 WBC RBC Hgb Hct MCV MCH MCHC RDW Plt Count MPV Absolute Neuts (auto) Neutrophils % Lymphocytes % Monocytes % Eosinophils % Basophils % Nucleated RBC % Sodium Potassium Chloride Carbon Dioxide Anion Gap BUN Creatinine Est GFR (CKD-EPI)AfAm Est GFR (CKD-EPI)NonAf POC Glucometer 142 Random Glucose Lactic Acid Calcium Total Bilirubin AST ALT Alkaline Phosphatase Creatine Kinase Creatine Kinase Index CK-MB (CK-2) Troponin I B-Natriuretic Peptide Total Protein Albumin Urine Color Urine Appearance Urine pH Ur Specific [place] Urine Protein Urine Glucose (UA) Urine Ketones Urine Blood Urine Nitrite Urine Bilirubin Urine Urobilinogen Ur Leukocyte Esterase Current Medications Generic Name Dose Route Start Last Admin Trade Name Freq PRN Reason Stop Dose Admin Acetaminophen 650 mg 10/11/18 00:45 10/11/18 00:48 Tylenol - PO 650 mg Q6H PRN Administration PAIN OR FEVER Apixaban 5 mg 10/10/18 22:15 10/10/18 23:53 Eliquis - PO 5 mg BID JENNY Administration Atorvastatin Calcium 40 mg 10/11/18 22:00 Lipitor - PO HS [facility] Clopidogrel Bisulfate 75 mg 10/11/18 10:00 Plavix - PO DAILY JENNY Cyclosporine 100 mg 10/10/18 23:45 10/10/18 23:53 Sandimmune PO 100 mg BID JENNY Administration Gabapentin 300 mg 10/10/18 22:15 10/10/18 23:53 Neurontin - PO 300 mg BID JENNY Administration Piperacillin Sod/Tazobactam 100 mls @ 200 mls/hr 10/11/18 03:15 Sod 4.5 gm/ Dextrose IVPB Q6H-IV JENNY Protocol Piperacillin Sod/Tazobactam 100 mls @ 200 mls/hr 10/11/18 03:15 10/11/18 03: 32 Sod 4.5 gm/ Dextrose IVPB 10/11/18 21:29 200 mls/hr Q6H-IV JENNY Administration Vancomycin HCl 1,500 mg/ 500 mls @ 250 mls/hr 10/11/18 16:00 Dextrose IVPB Q24H JENNY Protocol Vancomycin HCl 1,500 mg/ 500 mls @ 250 mls/hr 10/11/18 16:00 Dextrose IVPB 10/11/18 17:59 Q24H JENNY Torsemide 50 mg 10/11/18 10:00 Demadex - PO DAILY JENNY Valsartan 160 mg 10/11/18 10:00 Diovan - PO DAILY JENNY Imaging - Results Chest X-ray: Report Reviewed, Image Reviewed Ultrasound: Pending EKG: Image Reviewed Problem List - Problems (1) Sepsis Assessment/Plan: Likely secondary to CAP vs Cellulitis qSOFA 1 Sepsis Criteria Met III Blood Cultures-pending Urine Culture-pending Urine Legionella- pending Chest Xray report super imposed basilar infiltrate cannot be excluded Lactate 2.2 Fluid Resuscitation held secondary to CHF hx Repeat Lactic Acid in am BUN 37 Vancomycin and Zosyn given in ED, will continue renal dosing Appreciate ID consult Monitor CBC, BMP Monitor vitals Code(s): A41.9 - SEPSIS, UNSPECIFIED ORGANISM (2) Pneumonia Assessment/Plan: See above Code(s): J18.9 - PNEUMONIA, UNSPECIFIED ORGANISM Qualifiers: Pneumonia type: due to unspecified organism Laterality: unspecified laterality Lung location: unspecified part of lung Qualified Code(s): J18.9 - Pneumonia, unspecified organism (3) Chest pain on exertion Assessment/Plan: r/o ACS Cardiac monitoring Serial Enzymes neg x1, will trend Appreciate Cardiology consult EKG- NSR no ST or TWI noted, change compared to prior study Tachycardia Code(s): R07.9 - CHEST PAIN, UNSPECIFIED (4) Hyperkalemia Code(s): E87.5 - HYPERKALEMIA (5) Afib Assessment/Plan: stable [id number] EKG- reviewed Continue Eliquis Code(s): I48.91 - UNSPECIFIED ATRIAL FIBRILLATION Qualifiers: Atrial fibrillation type: unspecified Qualified Code(s): I48.91 - Unspecified atrial fibrillation (6) CAD (coronary artery disease) Assessment/Plan: s/p Stents Continue home meds EKG- reviewed Code(s): I25.10 - ATHSCL HEART DISEASE OF [place] CORONARY ARTERY W/O ANG PCTRS (7) CHF (congestive heart failure) Assessment/Plan: Chest Xray- congestive changes BNP- pending Continue Torsemide Strict INOs Daily weights Appreciate Cardiology consult Code(s): I50.9 - HEART FAILURE, UNSPECIFIED Qualifiers: Heart failure chronicity: chronic congestive heart failure (8) HTN (hypertension) Assessment/Plan: sub optimal Monitor BP Continue Valsartan Hold Hydralazine secondary to Hyperkalemia Monitor renal function Code(s): I10 - ESSENTIAL (PRIMARY) HYPERTENSION (9) CKD (chronic kidney disease) Assessment/Plan: Cr 1.5 at baseline Monitor BMP Consider Nephrology consult if condition worsens Avoid Nephrotoxic drugs Code(s): N18.9 - CHRONIC KIDNEY DISEASE, UNSPECIFIED (10) Diabetes Assessment/Plan: Stable BGMs ISS Code(s): E11.9 - TYPE 2 DIABETES MELLITUS WITHOUT COMPLICATIONS Qualifiers: Diabetes mellitus type: type 2 Diabetes mellitus group home insulin use: with group home use Diabetes mellitus complication status: without complication Qualified Code(s): E11.9 - Type 2 diabetes mellitus without complications; Z79.4 - terminal makeup operator (current) use of insulin (11) HLD (hyperlipidemia) Assessment/Plan: Stable Continue Lipitor Monitor LFTs Code(s): E78.5 - HYPERLIPIDEMIA, UNSPECIFIED (12) Gout Assessment/Plan: Stable No acute flare Code(s): M10.9 - GOUT, UNSPECIFIED Qualifiers: Gout site: foot (13) Lymphoma Assessment/Plan: Will continue to monitor and treat with interventions accordingly Appreciate Oncology consult Code(s): C85.90 - NON-HODGKIN LYMPHOMA, UNSPECIFIED, UNSPECIFIED SITE (14) PAD (peripheral artery disease) Assessment/Plan: Appreciate Vascular consult Code(s): I73.9 - PERIPHERAL VASCULAR DISEASE, UNSPECIFIED (15) Venous (peripheral) insufficiency Assessment/Plan: See above Code(s): I87.2 - VENOUS INSUFFICIENCY (CHRONIC) (PERIPHERAL) (16) Morbid obesity with BMI of 50.0-59.9, adult Assessment/Plan: Carb Control Diet Consider RD eval Code(s): E66.01 - MORBID (SEVERE) OBESITY DUE TO EXCESS CALORIES; Z68.43 - BODY MASS INDEX (BMI) 50-59.9, ADULT Assessment/Plan This is a 63 y/o man with a significant history of Leukemia (large granular T- Cell Lymphoma), CAD s/p Stents x2 [place] (most recent 2012), Afib (on Eliquis), CHF, HTN, HLD, DM s/p 2nd L-Toe Amputation. Admitted to Telemetry for Sepsis secondary to Pneumonia, Chest Pain, Hyperkalemia for further evaluation for their emergent condition. Plan: See Problem List FEN Fluid Restriction 1L Replete lytes prn Low Na, Diabetic Diet DVT ppx OOB TEDs Continue Eliquis Dispo: Requires Inpatient Care Visit type - Emergency Visit Emergency Visit: Yes ED Registration Date: 10/10/18 Care time: The patient presented to the Emergency Department on the above date and was hospitalized for further evaluation of their emergent condition. - New Patient This patient is new to me today: Yes Date on this admission: 10/10/18 - Critical Care Critical Care patient: No
[2018-10-10] MEDS: GABAPENTIN 300 MG CAPSULE (FP) PO SCH (23:53)
[2018-10-10] MEDS: APIXABAN 5 MG TABLET PO SCH (23:53)
[2018-10-11] MEDS: ACETAMINOPHEN 325 MG TABLET (FP) PO PRN ×3 (00:48→13:06)
[2018-10-11] MEDS ORDERED: PIPERACILLIN/TAZOB 4.5 GM 4.5 GM in DEXTROSE 5%-WATER 100 ML IVPB SCH (03:15)
[2018-10-11] MEDS ORDERED: DEXTROSE 5%-WATER 100 ML IVPB ONE ×3 (03:16→17:40)
[2018-10-11] MEDS ORDERED: PIPERACILLIN/TAZOBACTAM 4.5 GM VIAL IVPB ONE ×2 (03:16→11:20)
[2018-10-11] MEDS: PIPERACILLIN/TAZOB 4.5 GM 4.5 GM in DEXTROSE 5%-WATER 100 ML IVPB SCH ×2 (03:32→13:06)
[2018-10-11 07:48] LABS: CALCIUM 7.5 mg/dL (8.5-10.1); CREATININE 1.9 mg/dL (0.55-1.3); POTASSIUM 5.1 mmol/L (3.5-5.1)
--- NOTE | 2018-10-11 09:32 | EKG ---
Test Reason : Blood Pressure : / mmHG Vent. Rate : 068 BPM Atrial Rate : 068 BPM P-R Int : 192 ms QRS Dur : 100 ms QT Int : 378 ms P-R-T Axes : 093 -52 042 degrees QTc Int : 401 ms NORMAL SINUS RHYTHM LEFT AXIS DEVIATION LOW VOLTAGE QRS INCOMPLETE RIGHT BUNDLE BRANCH BLOCK POSSIBLE LATERAL INFARCT , AGE UNDETERMINED ABNORMAL ECG WHEN COMPARED WITH ECG OF 23-JUL-2016 12:06, VENT. RATE HAS INCREASED BY 25 BPM INCOMPLETE RIGHT BUNDLE BRANCH BLOCK IS NOW PRESENT Confirmed by KALBE ENCISO MD ([id number]) on 10/11/2018 9:32:03 AM Referred By: Confirmed By:KALEB ENCISO MD
--- NOTE | 2018-10-11 09:32 | EKG ---
Test Reason : Blood Pressure : / mmHG Vent. Rate : 050 BPM Atrial Rate : 050 BPM P-R Int : 206 ms QRS Dur : 102 ms QT Int : 424 ms P-R-T Axes : 041 -39 024 degrees QTc Int : 386 ms SINUS BRADYCARDIA LEFT AXIS DEVIATION LOW VOLTAGE QRS INFERIOR INFARCT , AGE UNDETERMINED ABNORMAL ECG WHEN COMPARED WITH ECG OF 10-OCT-2018 18:33, NO SIGNIFICANT CHANGE WAS FOUND Confirmed by FERNIE DURBIN, KALEB ([id number]) on 10/11/2018 9:31:50 AM Referred By: JOSH GASPAR Confirmed By:KALEB ENCISO MD
--- NOTE | 2018-10-11 10:58 | PN ---
Progress Note, Physician - Current Medication List Current Medications: Active Medications Acetaminophen (Tylenol -) 650 mg PO Q6H PRN PRN Reason: PAIN OR FEVER Last Admin: 10/11/18 06:50 Dose: 650 mg Apixaban (Eliquis -) 5 mg PO BID [facility] Last Admin: 10/10/18 23:53 Dose: 5 mg Atorvastatin Calcium (Lipitor -) 40 mg PO HS JENNY Clopidogrel Bisulfate (Plavix -) 75 mg PO DAILY [facility] Cyclosporine (Sandimmune) 100 mg PO BID [facility] Last Admin: 10/10/18 23:53 Dose: 100 mg Gabapentin (Neurontin -) 300 mg PO BID [facility] Last Admin: 10/10/18 23:53 Dose: 300 mg Piperacillin Sod/Tazobactam (Sod 4.5 gm/ Dextrose) 100 mls @ 200 mls/hr IVPB Q6H-IV JENNY; Protocol Piperacillin Sod/Tazobactam (Sod 4.5 gm/ Dextrose) 100 mls @ 200 mls/hr IVPB Q6H-IV JENNY Stop: 10/11/18 21:29 Last Admin: 10/11/18 03:32 Dose: 200 mls/hr Vancomycin HCl 1,500 mg/ (Dextrose) 500 mls @ 250 mls/hr IVPB Q24H JENNY; Protocol Vancomycin HCl 1,500 mg/ (Dextrose) 500 mls @ 250 mls/hr IVPB Q24H JENNY Stop: 10/11/18 17:59 Torsemide (Demadex -) 50 mg PO DAILY [facility] Valsartan (Diovan -) 160 mg PO DAILY [facility] - Objective Vital Signs: Vital Signs Temperature 99.2 F 10/11/18 06:00 Pulse Rate 58 L 10/11/18 09:56 Respiratory Rate 20 10/11/18 09:56 Blood Pressure 146/72 10/11/18 09:56 O2 Sat by Pulse Oximetry (%) 96 10/11/18 09:00 Labs: CBC, BMP 10/10/18 14:37 10/11/18 06:19 Assessment/Plan - Problems (1) Sepsis Assessment/Plan: Likely secondary to CAP vs Cellulitis Microbiology 10/10/18 15:40 Urine - Urine Clean Catch Urine Culture - Preliminary 10/11/18 01:35 Urine For Antigen Detection Legionella Antigen - Preliminary 10/11/18 01:35 Urine For Antigen Detection Streptococcus pneumoniae Antigen (M - Preliminary 10/10/18 14:37 Blood - Peripheral Venous Blood Culture - Preliminary Beta Hem Streptococcus Group C Chest Xray report super imposed basilar infiltrate cannot be excluded Vancomycin and Zosyn given in ED, will continue renal dosing Appreciate ID consult Monitor CBC, BMP Monitor vitals Code(s): A41.9 - SEPSIS, UNSPECIFIED ORGANISM (2) Pneumonia Assessment/Plan: See above Code(s): J18.9 - PNEUMONIA, UNSPECIFIED ORGANISM Qualifiers: Pneumonia type: due to unspecified organism Laterality: unspecified laterality Lung location: unspecified part of lung Qualified Code(s): J18.9 - Pneumonia, unspecified organism (3) Chest pain on exertion Assessment/Plan: r/o ACS Cardiac monitoring Serial Enzymes elevated Appreciate Cardiology consult EKG- NSR no ST or TWI noted, change compared to prior study Tachycardia Code(s): R07.9 - CHEST PAIN, UNSPECIFIED (4) Hyperkalemia Code(s): E87.5 - HYPERKALEMIA (5) Afib Assessment/Plan: stable [id number] EKG- reviewed Continue Eliquis Code(s): I48.91 - UNSPECIFIED ATRIAL FIBRILLATION Qualifiers: Atrial fibrillation type: unspecified Qualified Code(s): I48.91 - Unspecified atrial fibrillation (6) CAD (coronary artery disease) Assessment/Plan: s/p Stents Continue home meds EKG- reviewed Code(s): I25.10 - ATHSCL HEART DISEASE OF [place] CORONARY ARTERY W/O ANG PCTRS (7) CHF (congestive heart failure) Assessment/Plan: Chest Xray- congestive changes BNP- pending Continue Torsemide Strict INOs Daily weights Appreciate Cardiology consult Code(s): I50.9 - HEART FAILURE, UNSPECIFIED Qualifiers: Heart failure chronicity: chronic congestive heart failure (8) HTN (hypertension) Assessment/Plan: sub optimal Monitor BP Continue Valsartan Hold Hydralazine secondary to Hyperkalemia Monitor renal function Code(s): I10 - ESSENTIAL (PRIMARY) HYPERTENSION (9) CKD (chronic kidney disease) Assessment/Plan: Cr 1.5 at baseline Monitor BMP Avoid Nephrotoxic drugs Code(s): N18.9 - CHRONIC KIDNEY DISEASE, UNSPECIFIED (10) Diabetes Assessment/Plan: Stable BGMs ISS Code(s): E11.9 - TYPE 2 DIABETES MELLITUS WITHOUT COMPLICATIONS Qualifiers: Diabetes mellitus type: type 2 Diabetes mellitus longterm insulin use: with terminal press operator use Diabetes mellitus complication status: without complication Qualified Code(s): E11.9 - Type 2 diabetes mellitus without complications; Z79.4 - residential (current) use of insulin (11) HLD (hyperlipidemia) Assessment/Plan: Stable Continue Lipitor Monitor LFTs Code(s): E78.5 - HYPERLIPIDEMIA, UNSPECIFIED (12) Gout Assessment/Plan: Stable No acute flare Code(s): M10.9 - GOUT, UNSPECIFIED Qualifiers: Gout site: foot (13) Leukemia Assessment/Plan: Appreciate Oncology consult (14) PAD (peripheral artery disease) Assessment/Plan: Appreciate Vascular consult Code(s): I73.9 - PERIPHERAL VASCULAR DISEASE, UNSPECIFIED (15) Venous (peripheral) insufficiency Assessment/Plan: See above vascular consult Code(s): I87.2 - VENOUS INSUFFICIENCY (CHRONIC) (PERIPHERAL) (16) Morbid obesity with BMI of 50.0-59.9, adult Assessment/Plan: Carb Control Diet Code(s): E66.01 - MORBID (SEVERE) OBESITY DUE TO EXCESS CALORIES; Z68.43 - BODY MASS INDEX (BMI) 50-59.9, ADULT
--- NOTE | 2018-10-11 11:12 | CON.CARD ---
Cardiology Consult (text) - Consultation Consultation Note: Chief Complaint: chills History of Present Illness: 63 yo male here with chills. Had been feeling well until yesterday afternoon when started having chills, shaking. SOB at baseline. No cp palps dizzy loc pnd orthopnea. LE edema stable. Found to have sepsis here. 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: Yes: Peripheral Neuropathy Cardio/Vascular: Yes: AFIB, CAD, CHF, HTN, Hyperlipdemia Gastrointestinal: Yes: GERD Renal/: Yes: Renal Inusuff, Other (gopal) Infectious Disease: Yes: Other (osteomyelitis of left fifth metartarsal 2011) Endocrine: Yes: Diabetes Mellitus Additional Medical History: morbid obesity - Past Surgical History Past Surgical History: Yes: Stent (X2) - Alcohol/Substance Use Hx Alcohol Use: No History of Substance Use: reports: None - Smoking History Smoking history: Never smoked Have you smoked in the past 12 months: No Aproximately how many cigarettes per day: 0 - Social History Usual Living Arrangement: With Spouse ADL: Independent History of Recent Travel: No Home Medications - Allergies Allergies/Adverse Reactions: Allergies Allergy/AdvReac Type Severity Reaction Status Date / Time No Known Drug Allergies Allergy Verified 10/10/18 14:30 - Home Medications Ambulatory Orders Clopidogrel Bisulfate [Plavix -] 75 mg PO DAILY 05/17/16 Cyclosporine [Sandimmune] 100 mg PO BID 05/17/16 Gabapentin 300 mg PO BID 05/17/16 Potassium Chloride [K-Dur -] 20 meq PO DAILY 05/17/16 Atorvastatin Ca [Lipitor] 40 mg PO DAILY 07/23/16 Apixaban [Eliquis -] 5 mg PO BID tablet 07/25/16 Colchicine 0.6 mg PO DAILY 12/02/16 Torsemide [Demadex -] 50 mg PO DAILY 12/02/16 Valsartan 160 mg PO DAILY 12/02/16 Allopurinol 100 mg PO DAILY 10/10/18 Hydralazine HCl 25 mg PO DAILY 10/10/18 Meclizine HCl [Antivert -] 1 tab PO PRN 10/10/18 Trulicity 0 units SQ DAILY 10/10/18 Family Disease History - Family Disease History Family Disease History: Diabetes: Father, Mother, Heart Disease: Father, Mother , Brother Review of Systems - Review of Systems Eyes: denies: Eye Pain HENT: denies: Nasal Congestion Neck: denies: Stiffness Cardiovascular: denies: Palpitations Respiratory: denies: Orthopnea, PND Gastrointestinal: denies: Diarrhea, Rectal Bleeding Genitourinary: denies: Burning, Hematuria Musculoskeletal: denies: Muscle Pain Integumentary: denies: Rash Neurological: denies: Numbness, Seizure, Syncope Endocrine: denies: Excessive Sweating Hematology/Lymphatic: denies: Excessive Bleeding Vital Signs: Vital Signs Period Temp Pulse Resp BP Sys/Reddy Pulse Ox Last 24 Hr 99.1 F-101.2 F 52-72 20-24 102-196/54-75 96-99 Constitutional: Yes: No Distress, Obese Eyes: No: Sclera Icterus HENT: No: Nasal Congestion Neck: No: Decreased ROM Respiratory: Yes: CTA Bilaterally. No: Accessory Muscle Use, Rales, Wheezes Gastrointestinal: Yes: Normal Bowel Sounds. No: Distention, Hepatomegaly, Palpable Mass, Tenderness Cardiovascular: Yes: Regular Rate and Rhythm JVD: No Carotid Bruit: No PMI: Non-Displaced Heart Sounds: Yes: S1, S2. No: Gallop Murmur: No: Systolic Murmur, Diastolic Murmur Musculoskeletal: Yes: Other (No kyphosis) Extremities: No: Cool, Cyanosis Edema: chronic venous stasis changes, non pitting edema Peripheral Pulses: pos dp pt no carotid bruits Integumentary: No: Jaundice Neurological: Yes: Alert, Oriented (x3) Psychiatric: No: Agitated - Other Data Labs, Other Data: Laboratory Last Values WBC 5.8 K/mm3 (4.0-10.0) 10/10/18 14:37 RBC 3.88 M/mm3 (4.00-5.60) L 10/10/18 14:37 Hgb 11.1 GM/dL (11.7-16.9) L 10/10/18 14:37 Hct 33.6 % (35.4-49) L 10/10/18 14:37 MCV 86.8 fl (80-96) 10/10/18 14:37 MCH 28.6 pg (25.7-33.7) 10/10/18 14:37 MCHC 33.0 g/dl (32.0-35.9) 10/10/18 14:37 RDW 17.9 % (11.9-15.9) H 10/10/18 14:37 Plt Count 198 K/MM3 (134-434) D 10/10/18 14:37 MPV 9.5 fl (7.5-11.1) D 10/10/18 14:37 Absolute Neuts (auto) 3.8 K/mm3 (1.5-8.0) 10/10/18 14:37 Neutrophils % 65.6 % (42.8-82.8) D 10/10/18 14:37 Lymphocytes % 22.2 % (8-40) D 10/10/18 14:37 Monocytes % 9.1 % (3.8-10.2) 10/10/18 14:37 Eosinophils % 2.4 % (0-4.5) 10/10/18 14:37 Basophils % 0.7 % (0-2.0) 10/10/18 14:37 Nucleated RBC % 0 % (0-0) 10/10/18 14:37 Sodium 138 mmol/L (136-145) 10/11/18 06:19 Potassium 5.1 mmol/L (3.5-5.1) 10/11/18 06:19 Chloride 111 mmol/L (98-107) H 10/11/18 06:19 Carbon Dioxide 21 mmol/L (21-32) 10/11/18 06:19 Anion Gap 6 MMOL/L (8-16) L 10/11/18 06:19 BUN 43.0 mg/dL (7-18) H 10/11/18 06:19 Creatinine 1.9 mg/dL (0.55-1.3) H 10/11/18 06:19 Est GFR (CKD-EPI)AfAm 42.84 10/11/18 06:19 Est GFR (CKD-EPI)NonAf 36.96 10/11/18 06:19 POC Glucometer 102 UNITS (80-120) 10/11/18 06:04 Random Glucose 108 mg/dL (74-106) H 10/11/18 06:19 Lactic Acid 1.1 mmol/L (0.4-2.0) 10/11/18 02:30 Calcium 7.5 mg/dL (8.5-10.1) L 10/11/18 06:19 Total Bilirubin 0.8 mg/dL (0.2-1) 10/10/18 14:37 AST 38 U/L (15-37) H 10/10/18 14:37 ALT 19 U/L (13-61) 10/10/18 14:37 Alkaline Phosphatase 163 U/L (45-117) H 10/10/18 14:37 Creatine Kinase 165 U/L (26-308) 10/10/18 14:37 Creatine Kinase Index 1.0 % (0.0-5.0) 10/10/18 14:37 CK-MB (CK-2) 1.7 ng/mL (0.5-3.6) 10/10/18 14:37 Troponin I 2.34 ng/ml (0.00-0.05) H* 10/11/18 06:19 B-Natriuretic Peptide 1984.3 pg/ml (5-125) H 10/11/18 00:09 Total Protein 7.4 g/dl (6.4-8.2) 10/10/18 14:37 Albumin 3.2 g/dl (3.4-5.0) L 10/10/18 14:37 Urine Color Yellow 10/10/18 15:40 Urine Appearance Clear 10/10/18 15:40 Urine pH 5.0 (5.0-8.0) 10/10/18 15:40 Ur Specific [place] 1.020 (1.010-1.035) 10/10/18 15:40 Urine Protein 3+ (NEGATIVE) H 10/10/18 15:40 Urine Glucose (UA) Negative (NEGATIVE) 10/10/18 15:40 Urine Ketones Negative (NEGATIVE) 10/10/18 15:40 Urine Blood 1+ (NEGATIVE) H 10/10/18 15:40 Urine Nitrite Negative (NEGATIVE) 10/10/18 15:40 Urine Bilirubin Negative (NEGATIVE) 10/10/18 15:40 Urine Urobilinogen 0.2 mg/dL (0.2-1.0) 10/10/18 15:40 Ur Leukocyte Esterase Negative (NEGATIVE) 10/10/18 15:40 ecg: sr, nl intervals, no ischemic changes cxr: r eff/infiltrate Echo 03/27: nl LV/EF; nl RV; valve fxn WNL tele: SR a/p: 63 m hx cad s/p pci (10/2012 darryn to pLCx and dLCx, residual 30-50% in mRCA, pLAD, mLAD), dchf, venous insuff, morbid obesity, ckd, htn, hld, dm, pafib, dvt , foot ulcers, leukemia here with sepsis. sepsis: -on abx -+bld cx -ID consulted paroxysmal Afib/sinus gabriela -in sr now -off bb since had episode of gabriela in past -cont home eliquis CAD: -no chest pain sxs, ecg w/o ischemic changes -trops mildly elevated with nl ck. Most likely due to sepsis, does not appear to be acs. Cont to trend. Cont tele. Cont home eliquis, plavix, statin, arb. -check echo -was planned for outpt stress due to chronic leong but given +trops here will likely proceed with cardiac cath when acute infection issues resolved. HFpEF/venous insuff/edema -stable, cont home torsemide HTN -cont home arb and hydralazine gopal on ckd -likely 2/2 sepsis, monitor cr
[2018-10-11] MEDS: TORSEMIDE 20 MG TABLET (FP) PO SCH (12:00)
[2018-10-11] MEDS: APIXABAN 5 MG TABLET PO SCH ×2 (12:01→21:55)
[2018-10-11] MEDS: GABAPENTIN 300 MG CAPSULE (FP) PO SCH ×2 (12:01→21:54)
[2018-10-11] MEDS: CLOPIDOGREL BISULFATE 75 MG TABLET (FP) PO SCH (12:01)
[2018-10-11] MEDS: VALSARTAN 160 MG TABLET (UD) PO SCH (12:01)
[2018-10-11] MEDS ORDERED: PT OWN MED DRAWER 7, Y5N ONE (12:44)
--- NOTE | 2018-10-11 14:42 | PN ---
Progress Note (short form) - Note Progress Note: ID CONSULT DICTATED GRP C STREP BACTEREMIA ? SKIN SOURCE ? LUNG REPEAT BC ECHO CEFTRIAXONE 2GM Q24H DISCUSSED WITH FAMILY AT BEDSIDE
[2018-10-11] MEDS ORDERED: VANCOMYCIN HCL 1,500 MG in DEXTROSE 5%-WATER - 500 ML IVPB SCH (16:00)
[2018-10-11] MEDS: VITAMINS A AND D TOPICAL OINTMENT 60 GM TUBE TP SCH ×3 (18:26→21:55)
[2018-10-11] MEDS: CEFTRIAXONE 2 GM in DEXTROSE 5%-WATER 100 ML IVPB SCH (18:28)
--- NOTE | 2018-10-11 18:39 | CONSULT ---
Consult Consult Specialty:: Hematology Reason for Consultation:: T-Cell Large Granular Lymphocyte Leukemia - History of Present Illness Chief Complaint: Chills. 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 Presented to the ED for shakiness, chills, chest pain on exertion, increased lower extremity edema, and fatigue. Also reporting burning sensation in midsternum. He was scheduled for Echo and Stress test. Hematology consulted for T-LGL managed by Dr. 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: Yes: Peripheral Neuropathy Cardio/Vascular: Yes: AFIB, CAD, CHF, HTN, Hyperlipdemia Gastrointestinal: Yes: GERD Renal/: Yes: Renal Inusuff, Other (zhang) Infectious Disease: Yes: Other (osteomyelitis of left fifth metartarsal 2011) Endocrine: Yes: Diabetes Mellitus Additional Medical History: morbid obesity - Past Surgical History Past Surgical History: Yes: Stent (X2) - Alcohol/Substance Use Hx Alcohol Use: No History of Substance Use: reports: None - Smoking History Smoking history: Never smoked Have you smoked in the past 12 months: No Aproximately how many cigarettes per day: 0 - Social History Usual Living Arrangement: With Spouse ADL: Independent History of Recent Travel: No Home Medications - Allergies Allergies/Adverse Reactions: Allergies Allergy/AdvReac Type Severity Reaction Status Date / Time No Known Drug Allergies Allergy Verified 10/10/18 14:30 - Home Medications Home Medications: Ambulatory Orders Clopidogrel Bisulfate [Plavix -] 75 mg PO DAILY 05/17/16 Cyclosporine [Sandimmune] 100 mg PO BID 05/17/16 Gabapentin 300 mg PO BID 05/17/16 Potassium Chloride [K-Dur -] 20 meq PO DAILY 05/17/16 Atorvastatin Ca [Lipitor] 40 mg PO DAILY 07/23/16 Apixaban [Eliquis -] 5 mg PO BID tablet 07/25/16 Colchicine 0.6 mg PO DAILY 12/02/16 Torsemide [Demadex -] 50 mg PO DAILY 12/02/16 Valsartan 160 mg PO DAILY 12/02/16 Allopurinol 100 mg PO DAILY 10/10/18 Hydralazine HCl 25 mg PO DAILY 10/10/18 Meclizine HCl [Antivert -] 1 tab PO PRN 10/10/18 Trulicity 0 units SQ DAILY 10/10/18 Family Disease History - Family Disease History Family Disease History: Diabetes: Father, Mother, Heart Disease: Father, Mother , Brother Review of Systems - Review of Systems Constitutional: reports: Diaphoresis Eyes: reports: No Symptoms HENT: reports: No Symptoms Neck: reports: No Symptoms Cardiovascular: reports: Chest Pain Respiratory: reports: No Symptoms Gastrointestinal: reports: No Symptoms Genitourinary: reports: No Symptoms Integumentary: reports: No Symptoms Neurological: reports: No Symptoms Endocrine: reports: No Symptoms Hematology/Lymphatic: reports: No Symptoms Psychiatric: reports: No Symptoms Physical Exam Vital Signs: Vital Signs Temperature 99.2 F 10/11/18 14:40 Pulse Rate 60 10/11/18 14:40 Respiratory Rate 22 H 10/11/18 14:40 Blood Pressure 128/78 10/11/18 14:40 O2 Sat by Pulse Oximetry (%) 96 10/11/18 09:00 Constitutional: Yes: Well Nourished, No Distress, Calm Eyes: Yes: WNL, Conjunctiva Clear, EOM Intact HENT: Yes: WNL, Atraumatic, Normocephalic Cardiovascular: Yes: WNL, Regular Rate and Rhythm Respiratory: Yes: WNL, Regular, CTA Bilaterally Gastrointestinal: Yes: WNL, Normal Bowel Sounds, Soft, Abdomen, Obese ...Rectal Exam: Yes: Deferred Renal/: Yes: WNL Musculoskeletal: Yes: WNL Extremities: Yes: WNL, Other Integumentary: Yes: Other (Discoloration lower extremities) Neurological: Yes: WNL, Alert, Oriented ...Motor Strength: WNL Psychiatric: Yes: WNL, Alert, Oriented Labs: CBC, BMP 10/10/18 14:37 10/11/18 06:19 Problem List - Problems (1) T-cell large granular lymphocytic leukemia Code(s): C91.Z0 - OTHER LYMPHOID LEUKEMIA NOT HAVING ACHIEVED REMISSION Assessment/Plan 63 y/o gentleman with a significant history of T-Cell Large Granular Lymphocyte Leukemia (LGL) treated with Cyclosporine 100 mg po BID and also CAD s/p Stents x2 [place] (most recent 2012), Afib (on Eliquis), CHF, HTN, HLD, DM s/p 2nd L-Toe Amputation. Admitted to Telemetry for Sepsis secondary to Pneumonia, Chest Pain, ZHANG and Hyperkalemia. Hematology consulted for LGL input Recommend: 1) T-LGL: Cyclosporine 100 mg po BID. OK to hold 24-48 hrs. Can be resumed after infection under control 2) Sepsis, Strep Beta Hemolytic Group C, Pneumonia: Ceftriaxone. ID Eval 3) Previous chest pain and mildly elevated troponin. Cardiology evaluation 4) Thank you for this consultation
[2018-10-11] MEDS: ATORVASTATIN CA 40 MG TABLET (FP) PO SCH (21:55)
[2018-10-12] MEDS ORDERED: VITAMINS A AND D TOPICAL OINTMENT 60 GM TUBE TP PRN (03:40)
[2018-10-12 06:43] LABS: BASO % 1.2 % (0-2.0); EOS % 3.4 % (0-4.5); HEMATOCRIT 28.4 % (35.4-49); HEMOGLOBIN 9.4 GM/dL (11.7-16.9); LYMPH % 28.7 % (8-40); MCH 28.4 pg (25.7-33.7); MCHC 33.2 g/dl (32.0-35.9); MEAN CELL VOLUME 85.4 fl (80-96); MEAN PLT VOLUME 8.4 fl (7.5-11.1); MONO % 14.6 % (3.8-10.2); NEUT % 52.1 % (42.8-82.8); PLATELET COUNT 131 K/MM3 (134-434); RBC 3.32 M/mm3 (4.00-5.60); RDW 17.9 % (11.9-15.9); WHITE BLOOD COUNT 3.8 K/mm3 (4.0-10.0)
[2018-10-12 07:16] LABS: ALBUMIN 2.3 g/dl (3.4-5.0); BILIRUBIN,TOTAL 0.6 mg/dL (0.2-1); BLOOD UREA NITROGEN 49.9 mg/dL (7-18); CALCIUM 7.6 mg/dL (8.5-10.1); POTASSIUM 4.5 mmol/L (3.5-5.1); TOT PROT 5.8 g/dl (6.4-8.2)
[2018-10-12] MEDS ORDERED: PT OWN MED DRAWER 7, Y5N ONE ×2 (09:07→22:28)
[2018-10-12] MEDS ORDERED: DEXTROSE 5%-WATER 100 ML IVPB ONE (09:08)
[2018-10-12] MEDS: CLOPIDOGREL BISULFATE 75 MG TABLET (FP) PO SCH (10:43)
[2018-10-12] MEDS: VALSARTAN 160 MG TABLET (UD) PO SCH (10:43)
[2018-10-12] MEDS: GABAPENTIN 300 MG CAPSULE (FP) PO SCH ×2 (10:43→22:26)
[2018-10-12] MEDS: APIXABAN 5 MG TABLET PO SCH ×2 (10:43→22:26)
[2018-10-12] MEDS: TORSEMIDE 20 MG TABLET (FP) PO SCH (10:44)
[2018-10-12] MEDS: CEFTRIAXONE 2 GM in DEXTROSE 5%-WATER 100 ML IVPB SCH (10:45)
--- NOTE | 2018-10-12 11:06 | PN ---
Progress Note (short form) - Note Progress Note: s: no cp sob palps dizzy Current Medications Generic Name Dose Route Start Last Admin Trade Name Freq PRN Reason Stop Dose Admin Acetaminophen 650 mg 10/11/18 00:45 10/11/18 13:06 Tylenol - PO 650 mg Q6H PRN Administration PAIN OR FEVER Apixaban 5 mg 10/10/18 22:15 10/12/18 10:43 Eliquis - PO 5 mg BID JENNY Administration Atorvastatin Calcium 40 mg 10/11/18 22:00 10/11/18 21:55 Lipitor - PO 40 mg HS JENNY Administration Clopidogrel Bisulfate 75 mg 10/11/18 10:00 10/12/18 10:43 Plavix - PO 75 mg DAILY JENNY Administration Cyclosporine 100 mg 10/10/18 23:45 10/12/18 10:45 Sandimmune PO 100 mg BID JENNY Administration Gabapentin 300 mg 10/10/18 22:15 10/12/18 10:43 Neurontin - PO 300 mg BID JENNY Administration Ceftriaxone Sodium 2 gm/ 100 mls @ 100 mls/hr 10/11/18 15:00 10/12/18 10:45 Dextrose IVPB 100 mls/hr DAILY JENNY Administration Protocol Torsemide 50 mg 10/11/18 10:00 10/12/18 10:44 Demadex - PO 50 mg DAILY JENNY Administration Valsartan 160 mg 10/11/18 10:00 10/12/18 10:43 Diovan - PO 160 mg DAILY JENNY Administration Vitamin A/Vitamin D 1 applic 10/12/18 03:40 Vitamin A & D Top Oint - TP BID PRN WOUND CARE Vital Signs Period Temp Pulse Resp BP Sys/Reddy Pulse Ox Last 24 Hr 98.3 F-99.2 F 60-85 20-22 126-159/55-78 97-98 Constitutional: Yes: No Distress, Obese Eyes: No: Sclera Icterus Respiratory: Yes: CTA Bilaterally. No: Accessory Muscle Use, Rales, Wheezes Gastrointestinal: Yes: Normal Bowel Sounds. No: Distention, Hepatomegaly, Palpable Mass, Tenderness Cardiovascular: Yes: Regular Rate and Rhythm JVD: No Carotid Bruit: No PMI: Non-Displaced Heart Sounds: Yes: S1, S2. No: Gallop Murmur: No: Systolic Murmur, Diastolic Murmur Extremities: No: Cool, Cyanosis Edema: chronic venous stasis changes, non pitting edema Peripheral Pulses: pos dp pt no carotid bruits Integumentary: No: Jaundice Neurological: Yes: Alert, Oriented (x3) Psychiatric: No: Agitated CBC, BMP 10/12/18 06:15 10/12/18 06:15 ecg: sr, nl intervals, no ischemic changes cxr: r eff/infiltrate Echo 03/27: nl LV/EF; nl RV; valve fxn WNL tele: SR a/p: 63 m hx cad s/p pci (10/2012 darryn to pLCx and dLCx, residual 30-50% in mRCA, pLAD, mLAD), dchf, venous insuff, morbid obesity, ckd, htn, hld, dm, pafib, dvt , foot ulcers, leukemia here with sepsis. sepsis: -on abx per ID -+bld cx paroxysmal Afib/sinus gabriela -in sr now -off bb since had episode of gabriela in past -cont home eliquis CAD: -no chest pain sxs, ecg w/o ischemic changes -trops mildly elevated with nl ck. Most likely due to sepsis, does not appear to be acs. Cont to trend. Cont tele. Cont home eliquis, plavix, statin, arb. -check echo -was planned for outpt stress due to chronic leong but given +trops here will likely proceed with cardiac cath when acute infection issues resolved. HFpEF/venous insuff/edema -stable, cont home torsemide HTN -cont home arb gopal on ckd -likely 2/2 sepsis, monitor cr
--- NOTE | 2018-10-12 11:50 | PN ---
Progress Note, Physician - Current Medication List Current Medications: Active Medications Acetaminophen (Tylenol -) 650 mg PO Q6H PRN PRN Reason: PAIN OR FEVER Last Admin: 10/11/18 13:06 Dose: 650 mg Apixaban (Eliquis -) 5 mg PO BID [facility] Last Admin: 10/12/18 10:43 Dose: 5 mg Atorvastatin Calcium (Lipitor -) 40 mg PO HS [facility] Last Admin: 10/11/18 21:55 Dose: 40 mg Clopidogrel Bisulfate (Plavix -) 75 mg PO DAILY [facility] Last Admin: 10/12/18 10:43 Dose: 75 mg Cyclosporine (Sandimmune) 100 mg PO BID [facility] Last Admin: 10/12/18 10:45 Dose: 100 mg Gabapentin (Neurontin -) 300 mg PO BID [facility] Last Admin: 10/12/18 10:43 Dose: 300 mg Ceftriaxone Sodium 2 gm/ (Dextrose) 100 mls @ 100 mls/hr IVPB DAILY [facility]; Protocol Last Admin: 10/12/18 10:45 Dose: 100 mls/hr Torsemide (Demadex -) 50 mg PO DAILY [facility] Last Admin: 10/12/18 10:44 Dose: 50 mg Valsartan (Diovan -) 160 mg PO DAILY [facility] Last Admin: 10/12/18 10:43 Dose: 160 mg Vitamin A/Vitamin D (Vitamin A & D Top Oint -) 1 applic TP BID PRN PRN Reason: WOUND CARE - Objective Vital Signs: Vital Signs Temperature 97.7 F 10/12/18 10:00 Pulse Rate 73 10/12/18 10:00 Respiratory Rate 17 10/12/18 10:00 Blood Pressure 154/70 10/12/18 10:00 O2 Sat by Pulse Oximetry (%) 97 10/12/18 08:32 Cardiovascular: Yes: S1, S2 Respiratory: Yes: Regular, CTA Bilaterally Gastrointestinal: Yes: Normal Bowel Sounds, Soft Extremities: Yes: Erythema Integumentary: Yes: Venous Stasis Changes Labs: CBC, BMP 10/12/18 06:15 10/12/18 06:15 Assessment/Plan - Problems (1) Sepsis Assessment/Plan: Likely secondary to CAP vs Cellulitis Microbiology 10/10/18 15:40 Urine - Urine Clean Catch Urine Culture - Preliminary 10/11/18 01:35 Urine For Antigen Detection Legionella Antigen - Preliminary 10/11/18 01:35 Urine For Antigen Detection Streptococcus pneumoniae Antigen (M - Preliminary 10/10/18 14:37 Blood - Peripheral Venous Blood Culture - Preliminary Beta Hem Streptococcus Group C Chest Xray report super imposed basilar infiltrate cannot be excluded Vancomycin and Zosyn given in ED, will continue renal dosing Appreciate ID consult Monitor CBC, BMP Monitor vitals Code(s): A41.9 - SEPSIS, UNSPECIFIED ORGANISM (2) Pneumonia Assessment/Plan: See above Code(s): J18.9 - PNEUMONIA, UNSPECIFIED ORGANISM Qualifiers: Pneumonia type: due to unspecified organism Laterality: unspecified laterality Lung location: unspecified part of lung Qualified Code(s): J18.9 - Pneumonia, unspecified organism (3) Chest pain on exertion Assessment/Plan: r/o ACS Cardiac monitoring Serial Enzymes elevated Appreciate Cardiology consult EKG- NSR no ST or TWI noted, change compared to prior study Tachycardia Code(s): R07.9 - CHEST PAIN, UNSPECIFIED (4) Hyperkalemia Code(s): E87.5 - HYPERKALEMIA (5) Afib Assessment/Plan: stable [id number] EKG- reviewed Continue Eliquis Code(s): I48.91 - UNSPECIFIED ATRIAL FIBRILLATION Qualifiers: Atrial fibrillation type: unspecified Qualified Code(s): I48.91 - Unspecified atrial fibrillation (6) CAD (coronary artery disease) Assessment/Plan: s/p Stents Continue home meds EKG- reviewed Code(s): I25.10 - ATHSCL HEART DISEASE OF [place] CORONARY ARTERY W/O ANG PCTRS (7) CHF (congestive heart failure) Assessment/Plan: Chest Xray- congestive changes BNP- pending Continue Torsemide Strict INOs Daily weights Appreciate Cardiology consult Code(s): I50.9 - HEART FAILURE, UNSPECIFIED Qualifiers: Heart failure chronicity: chronic congestive heart failure (8) HTN (hypertension) Assessment/Plan: sub optimal Monitor BP Continue Valsartan Hold Hydralazine secondary to Hyperkalemia Monitor renal function Code(s): I10 - ESSENTIAL (PRIMARY) HYPERTENSION (9) CKD (chronic kidney disease) Assessment/Plan: Cr 1.5 at baseline Monitor BMP Avoid Nephrotoxic drugs Code(s): N18.9 - CHRONIC KIDNEY DISEASE, UNSPECIFIED (10) Diabetes Assessment/Plan: Stable BGMs ISS Code(s): E11.9 - TYPE 2 DIABETES MELLITUS WITHOUT COMPLICATIONS Qualifiers: Diabetes mellitus type: type 2 Diabetes mellitus shelter insulin use: with shelter use Diabetes mellitus complication status: without complication Qualified Code(s): E11.9 - Type 2 diabetes mellitus without complications; Z79.4 - group home (current) use of insulin (11) HLD (hyperlipidemia) Assessment/Plan: Stable Continue Lipitor Monitor LFTs Code(s): E78.5 - HYPERLIPIDEMIA, UNSPECIFIED (12) Gout Assessment/Plan: Stable No acute flare Code(s): M10.9 - GOUT, UNSPECIFIED Qualifiers: Gout site: foot (13) Leukemia Assessment/Plan: Appreciate Oncology consult (14) PAD (peripheral artery disease) Assessment/Plan: Appreciate Vascular consult Code(s): I73.9 - PERIPHERAL VASCULAR DISEASE, UNSPECIFIED (15) Venous (peripheral) insufficiency Assessment/Plan: See above vascular consult Code(s): I87.2 - VENOUS INSUFFICIENCY (CHRONIC) (PERIPHERAL) (16) Morbid obesity with BMI of 50.0-59.9, adult Assessment/Plan: Carb Control Diet Code(s): E66.01 - MORBID (SEVERE) OBESITY DUE TO EXCESS CALORIES; Z68.43 - BODY MASS INDEX (BMI) 50-59.9, ADULT
--- NOTE | 2018-10-12 17:42 | PN ---
Progress Note (short form) - Note Progress Note: Patient seen and examined Still with stabbing chest pains and dyspnea on minimal exertion Last Vital Signs Temp Pulse Resp BP Pulse Ox 98.2 F 75 18 133/44 L 97 10/12/18 14:07 10/12/18 14:07 10/12/18 14:07 10/12/18 14:07 10/12/18 08:32 HEENT: VALERIO, EOM Intact Oropharynx: No thrush, No mucositis Cor: RSR, No murmurs, No gallops, extrasystoles Lungs: Clear to P&A Abd: Soft, Normal bowel sounds, No organomegaly,obese Ext:LE edema Skin: stasis changes- LE's CBC, BMP 10/12/18 06:15 10/12/18 06:15 Current Medications Generic Name Dose Route Start Last Admin Trade Name Freq PRN Reason Stop Dose Admin Acetaminophen 650 mg 10/11/18 00:45 10/11/18 13:06 Tylenol - PO 650 mg Q6H PRN Administration PAIN OR FEVER Apixaban 5 mg 10/10/18 22:15 10/12/18 10:43 Eliquis - PO 5 mg BID JENNY Administration Atorvastatin Calcium 40 mg 10/11/18 22:00 10/11/18 21:55 Lipitor - PO 40 mg HS JENNY Administration Clopidogrel Bisulfate 75 mg 10/11/18 10:00 10/12/18 10:43 Plavix - PO 75 mg DAILY JENNY Administration Cyclosporine 100 mg 10/10/18 23:45 10/12/18 10:45 Sandimmune PO 100 mg BID JENNY Administration Gabapentin 300 mg 10/10/18 22:15 10/12/18 10:43 Neurontin - PO 300 mg BID JENNY Administration Ceftriaxone Sodium 2 gm/ 100 mls @ 100 mls/hr 10/11/18 15:00 10/12/18 10:45 Dextrose IVPB 100 mls/hr DAILY JENNY Administration Protocol Torsemide 50 mg 10/11/18 10:00 10/12/18 10:44 Demadex - PO 50 mg DAILY JENNY Administration Valsartan 160 mg 10/11/18 10:00 10/12/18 10:43 Diovan - PO 160 mg DAILY JENNY Administration Vitamin A/Vitamin D 1 applic 10/12/18 03:40 Vitamin A & D Top Oint - TP BID PRN WOUND CARE Impression: T cell large granular leukemia/lymphoma has been controlled on cyclosporine - 100 mg BID When infection improved - resume Fever - sepsis, strep, --on antibiotics CKD Cardiac /chest pain- s/p stents x2 - for work up.
--- NOTE | 2018-10-12 18:26 | PN ---
Progress Note (short form) - Note Progress Note: Patient seen and examined Complains of chest type stabbing pain and SOB on minimal exertion Last Vital Signs Temp Pulse Resp BP Pulse Ox 98.2 F 75 18 133/44 L 97 10/12/18 14:07 10/12/18 14:07 10/12/18 14:07 10/12/18 14:07 10/12/18 08:32 HEENT: VALERIO, EOM Intact Cor: RSR, No murmurs, No gallops Lungs: Clear to P&A Abd: Soft, Normal bowel sounds, No organomegaly,obese Ext:LE edema Skin: stasis CBC, BMP 10/12/18 06:15 10/12/18 06:15 Current Medications Generic Name Dose Route Start Last Admin Trade Name Freq PRN Reason Stop Dose Admin Acetaminophen 650 mg 10/11/18 00:45 10/11/18 13:06 Tylenol - PO 650 mg Q6H PRN Administration PAIN OR FEVER Apixaban 5 mg 10/10/18 22:15 10/12/18 10:43 Eliquis - PO 5 mg BID JENNY Administration Atorvastatin Calcium 40 mg 10/11/18 22:00 10/11/18 21:55 Lipitor - PO 40 mg HS JENNY Administration Clopidogrel Bisulfate 75 mg 10/11/18 10:00 10/12/18 10:43 Plavix - PO 75 mg DAILY JENNY Administration Cyclosporine 100 mg 10/10/18 23:45 10/12/18 10:45 Sandimmune PO 100 mg BID JENNY Administration Gabapentin 300 mg 10/10/18 22:15 10/12/18 10:43 Neurontin - PO 300 mg BID JENNY Administration Ceftriaxone Sodium 2 gm/ 100 mls @ 100 mls/hr 10/11/18 15:00 10/12/18 10:45 Dextrose IVPB 100 mls/hr DAILY JENNY Administration Protocol Torsemide 50 mg 10/11/18 10:00 10/12/18 10:44 Demadex - PO 50 mg DAILY JENNY Administration Valsartan 160 mg 10/11/18 10:00 10/12/18 10:43 Diovan - PO 160 mg DAILY JENNY Administration Vitamin A/Vitamin D 1 applic 10/12/18 03:40 Vitamin A & D Top Oint - TP BID PRN WOUND CARE Impression Tcell- Large granular leukemia/lymphoma on cyclosporine Cyclosporine beingheld while patient has infection Can resume cvyclosporine 100 mg p.o. BID when infection controlled pending renal status Treatment of sepsis- per ID Cardiology follow up
--- NOTE | 2018-10-12 19:22 | PN ---
Progress Note, Physician - Current Medication List Current Medications: Active Medications Acetaminophen (Tylenol -) 650 mg PO Q6H PRN PRN Reason: PAIN OR FEVER Last Admin: 10/11/18 13:06 Dose: 650 mg Apixaban (Eliquis -) 5 mg PO BID [facility] Last Admin: 10/12/18 10:43 Dose: 5 mg Atorvastatin Calcium (Lipitor -) 40 mg PO HS [facility] Last Admin: 10/11/18 21:55 Dose: 40 mg Clopidogrel Bisulfate (Plavix -) 75 mg PO DAILY [facility] Last Admin: 10/12/18 10:43 Dose: 75 mg Cyclosporine (Sandimmune) 100 mg PO BID [facility] Last Admin: 10/12/18 10:45 Dose: 100 mg Gabapentin (Neurontin -) 300 mg PO BID [facility] Last Admin: 10/12/18 10:43 Dose: 300 mg Ceftriaxone Sodium 2 gm/ (Dextrose) 100 mls @ 100 mls/hr IVPB DAILY [facility]; Protocol Last Admin: 10/12/18 10:45 Dose: 100 mls/hr Torsemide (Demadex -) 50 mg PO DAILY [facility] Last Admin: 10/12/18 10:44 Dose: 50 mg Valsartan (Diovan -) 160 mg PO DAILY [facility] Last Admin: 10/12/18 10:43 Dose: 160 mg Vitamin A/Vitamin D (Vitamin A & D Top Oint -) 1 applic TP BID PRN PRN Reason: WOUND CARE - Objective Vital Signs: Vital Signs Temperature 98.8 F 10/12/18 18:00 Pulse Rate 75 10/12/18 18:00 Respiratory Rate 18 10/12/18 18:00 Blood Pressure 144/77 10/12/18 18:00 O2 Sat by Pulse Oximetry (%) 97 10/12/18 08:32 Labs: CBC, BMP 10/12/18 06:15 10/12/18 06:15
--- NOTE | 2018-10-12 20:27 | HOSP ---
Subjective - Review of Symptoms Events since last encounter: Hospitalist Encounter Notified by RN that the patient is having Chest Pain Patient seen at bedside. AAOx3, patient reports CP started at 3pm after ambulating to the bathroom. He reports having sharp pain which radiated to lower back with SOB- now resolved PE performed see EMR Plan: Stat EKG Stat Troponin Cardiovascular: Yes: Chest Pain Physical Examination Vital Signs: Vital Signs Temperature 98.8 F 10/12/18 18:00 Pulse Rate 75 10/12/18 18:00 Respiratory Rate 18 10/12/18 18:00 Blood Pressure 144/77 10/12/18 18:00 O2 Sat by Pulse Oximetry (%) 97 10/12/18 08:32 Constitutional: Yes: Well Nourished, No Distress, Calm, Obese Eyes: Yes: WNL, Conjunctiva Clear, EOM Intact, PERRL HENT: Yes: WNL, Atraumatic, Normocephalic Neck: Yes: WNL, Supple, Trachea Midline Cardiovascular: Yes: WNL, Regular Rate and Rhythm, S1, S2 Respiratory: Yes: Diminished, On Nasal O2, SOB on Exertion Gastrointestinal: Yes: Normal Bowel Sounds, Soft, Abdomen, Obese Musculoskeletal: Yes: Back Pain (TTP lower back) Extremities: Yes: WNL Edema: Yes Edema: LLE: 2+, RLE: 3+ Peripheral Pulses WNL: Yes Integumentary: Yes: Venous Stasis Changes Wound/Incision: Yes: Other Neurological: Yes: WNL, Alert, Oriented, Cran Nerves II-XII Intact ...Motor Strength: WNL Psychiatric: Yes: WNL, Alert, Oriented Labs: CBC, BMP 10/12/18 06:15 10/12/18 06:15 Laboratory Results - last 24 hr 10/11/18 10/12/18 10/12/18 21:57 06:15 06:15 WBC 3.8 L RBC 3.32 L Hgb 9.4 L Hct 28.4 L D MCV 85.4 MCH 28.4 MCHC 33.2 RDW 17.9 H Plt Count 131 L D MPV 8.4 D Absolute Neuts (auto) 2.0 Neutrophils % 52.1 D Lymphocytes % 28.7 D Monocytes % 14.6 H Eosinophils % 3.4 Basophils % 1.2 Nucleated RBC % 0 Sodium 137 Potassium 4.5 Chloride 110 H Carbon Dioxide 19 L Anion Gap 7 L BUN 49.9 H Creatinine 2.0 H Est GFR (CKD-EPI)AfAm 40.26 Est GFR (CKD-EPI)NonAf 34.74 POC Glucometer 108 Random Glucose 99 Calcium 7.6 L Total Bilirubin 0.6 AST 27 ALT 17 Alkaline Phosphatase 111 Creatine Kinase 105 Troponin I 0.91 H* Total Protein 5.8 L Albumin 2.3 L 10/12/18 06:27 WBC RBC Hgb Hct MCV MCH MCHC RDW Plt Count MPV Absolute Neuts (auto) Neutrophils % Lymphocytes % Monocytes % Eosinophils % Basophils % Nucleated RBC % Sodium Potassium Chloride Carbon Dioxide Anion Gap BUN Creatinine Est GFR (CKD-EPI)AfAm Est GFR (CKD-EPI)NonAf POC Glucometer 99 Random Glucose Calcium Total Bilirubin AST ALT Alkaline Phosphatase Creatine Kinase Troponin I Total Protein Albumin Intake & Output 10/09/18 10/10/18 10/11/18 10/12/18 23:59 23:59 23:59 23:59 Intake Total 10 120 1250 Balance 10 120 1250 Weight 160.39 kg 157.215 kg 156.943 kg Current Medications Generic Name Dose Route Start Last Admin Trade Name Freq PRN Reason Stop Dose Admin Acetaminophen 650 mg 10/11/18 00:45 10/11/18 13:06 Tylenol - PO 650 mg Q6H PRN Administration PAIN OR FEVER Apixaban 5 mg 10/10/18 22:15 10/12/18 10:43 Eliquis - PO 5 mg BID JENNY Administration Atorvastatin Calcium 40 mg 10/11/18 22:00 10/11/18 21:55 Lipitor - PO 40 mg HS JENNY Administration Clopidogrel Bisulfate 75 mg 10/11/18 10:00 10/12/18 10:43 Plavix - PO 75 mg DAILY JENNY Administration Cyclosporine 100 mg 10/10/18 23:45 10/12/18 10:45 Sandimmune PO 100 mg BID JENNY Administration Gabapentin 300 mg 10/10/18 22:15 10/12/18 10:43 Neurontin - PO 300 mg BID JENNY Administration Ceftriaxone Sodium 2 gm/ 100 mls @ 100 mls/hr 10/11/18 15:00 10/12/18 10:45 Dextrose IVPB 100 mls/hr DAILY JENNY Administration Protocol Torsemide 50 mg 10/11/18 10:00 10/12/18 10:44 Demadex - PO 50 mg DAILY JENNY Administration Valsartan 160 mg 10/11/18 10:00 10/12/18 10:43 Diovan - PO 160 mg DAILY JENNY Administration Vitamin A/Vitamin D 1 applic 10/12/18 03:40 Vitamin A & D Top Oint - TP BID PRN WOUND CARE Hospitalist Encounter Outcome: EKG reviewed- SR with 1st degree AV block, LAD, inferior infarct, age undetermined Trop-0.55 trending down Patient denies chest pain at present, resting comfortably at bedside, per RN
[2018-10-12] MEDS: ATORVASTATIN CA 40 MG TABLET (FP) PO SCH (22:26)
[2018-10-12] MEDS: ACETAMINOPHEN 325 MG TABLET (FP) PO PRN (22:30)
[2018-10-13 06:56] LABS: BASO % 1.3 % (0-2.0); EOS % 4.9 % (0-4.5); HEMATOCRIT 29.5 % (35.4-49); HEMOGLOBIN 9.7 GM/dL (11.7-16.9); LYMPH % 26.3 % (8-40); MCH 28.3 pg (25.7-33.7); MCHC 32.9 g/dl (32.0-35.9); MEAN PLT VOLUME 9.8 fl (7.5-11.1); MONO % 23.7 % (3.8-10.2); NEUT % 43.8 % (42.8-82.8); PLATELET COUNT 144 K/MM3 (134-434); RBC 3.42 M/mm3 (4.00-5.60); RDW 18.2 % (11.9-15.9); WHITE BLOOD COUNT 2.1 K/mm3 (4.0-10.0)
[2018-10-13 07:18] LABS: ALBUMIN 2.2 g/dl (3.4-5.0); BILIRUBIN,TOTAL 0.3 mg/dL (0.2-1); BLOOD UREA NITROGEN 55.3 mg/dL (7-18); CALCIUM 7.9 mg/dL (8.5-10.1); CREATININE 2.1 mg/dL (0.55-1.3); POTASSIUM 4.2 mmol/L (3.5-5.1); TOT PROT 5.9 g/dl (6.4-8.2)
--- NOTE | 2018-10-13 08:41 | CONSULT ---
Consult Consult Specialty:: Vascular Surgery - History of Present Illness History of Present Illness: 63 year old man with chronic venous stasis both legs, DM, CLL who has been treated for stasis dermatitis and a left 1st toe infection in the past. he was admitted with shaking chills and had a single blood culture positive for strep. He is feeling better. 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 Medical History INKER: Yes: Peripheral Neuropathy Cardio/Vascular: Yes: AFIB, CAD, CHF, HTN, Hyperlipdemia Gastrointestinal: Yes: GERD Renal/: Yes: Renal Inusuff, Other (gopal) Infectious Disease: Yes: Other (osteomyelitis of left fifth metartarsal 2011) Endocrine: Yes: Diabetes Mellitus Additional Medical History: morbid obesity - Past Surgical History Past Surgical History: Yes: Stent (X2) - Alcohol/Substance Use Hx Alcohol Use: No History of Substance Use: reports: None - Smoking History Smoking history: Never smoked Have you smoked in the past 12 months: No Aproximately how many cigarettes per day: 0 - Social History Usual Living Arrangement: With Spouse ADL: Independent History of Recent Travel: No Home Medications - Allergies Allergies/Adverse Reactions: Allergies Allergy/AdvReac Type Severity Reaction Status Date / Time No Known Drug Allergies Allergy Verified 10/10/18 14:30 - Home Medications Home Medications: Ambulatory Orders Clopidogrel Bisulfate [Plavix -] 75 mg PO DAILY 05/17/16 Cyclosporine [Sandimmune] 100 mg PO BID 05/17/16 Gabapentin 300 mg PO BID 05/17/16 Potassium Chloride [K-Dur -] 20 meq PO DAILY 05/17/16 Atorvastatin Ca [Lipitor] 40 mg PO DAILY 07/23/16 Apixaban [Eliquis -] 5 mg PO BID tablet 07/25/16 Colchicine 0.6 mg PO DAILY 12/02/16 Torsemide [Demadex -] 50 mg PO DAILY 12/02/16 Valsartan 160 mg PO DAILY 12/02/16 Allopurinol 100 mg PO DAILY 10/10/18 Hydralazine HCl 25 mg PO DAILY 10/10/18 Meclizine HCl [Antivert -] 1 tab PO PRN 10/10/18 Trulicity 0 units SQ DAILY 10/10/18 Family Disease History - Family Disease History Family Disease History: Diabetes: Father, Mother, Heart Disease: Father, Mother , Brother Physical Exam Vital Signs: Vital Signs Temperature 98.2 F 10/13/18 06:00 Pulse Rate 86 10/13/18 06:00 Respiratory Rate 20 10/13/18 06:00 Blood Pressure 151/58 L 10/13/18 06:00 O2 Sat by Pulse Oximetry (%) 100 10/12/18 21:00 Constitutional: Yes: No Distress, Obese Gastrointestinal: Yes: Soft, Abdomen, Obese. No: Tenderness Extremities: Yes: Other (1+ edema, pigmentation of skin with loose eschar, no open wounds. Varicose veins both upper calves. Feet warm, no wounds.) Labs: CBC, BMP 10/13/18 05:05 10/13/18 05:05 Imaging - Results Ultrasound: Report Reviewed (No DVT) Problem List - Problems (1) Stasis dermatitis of both legs Assessment/Plan: Chronic venous stasis with dermatitis but no ulceration or cellulitis seen. Leg elevation and moisturizers recommended. No need for vascular intervention at this time. Code(s): I87.2 - VENOUS INSUFFICIENCY (CHRONIC) (PERIPHERAL)
--- NOTE | 2018-10-13 09:09 | PN ---
Progress Note, Physician - Current Medication List Current Medications: Active Medications Acetaminophen (Tylenol -) 650 mg PO Q6H PRN PRN Reason: PAIN OR FEVER Last Admin: 10/12/18 22:30 Dose: 650 mg Apixaban (Eliquis -) 5 mg PO BID [facility] Last Admin: 10/12/18 22:26 Dose: 5 mg Atorvastatin Calcium (Lipitor -) 40 mg PO HS [facility] Last Admin: 10/12/18 22:26 Dose: 40 mg Clopidogrel Bisulfate (Plavix -) 75 mg PO DAILY [facility] Last Admin: 10/12/18 10:43 Dose: 75 mg Cyclosporine (Sandimmune) 100 mg PO BID [facility] Last Admin: 10/12/18 22:29 Dose: 100 mg Gabapentin (Neurontin -) 300 mg PO BID [facility] Last Admin: 10/12/18 22:26 Dose: 300 mg Ceftriaxone Sodium 2 gm/ (Dextrose) 100 mls @ 100 mls/hr IVPB DAILY [facility]; Protocol Last Admin: 10/12/18 10:45 Dose: 100 mls/hr Torsemide (Demadex -) 50 mg PO DAILY [facility] Last Admin: 10/12/18 10:44 Dose: 50 mg Valsartan (Diovan -) 160 mg PO DAILY [facility] Last Admin: 10/12/18 10:43 Dose: 160 mg Vitamin A/Vitamin D (Vitamin A & D Top Oint -) 1 applic TP BID PRN PRN Reason: WOUND CARE - Objective Vital Signs: Vital Signs Temperature 98.2 F 10/13/18 06:00 Pulse Rate 86 10/13/18 06:00 Respiratory Rate 20 10/13/18 06:00 Blood Pressure 151/58 L 10/13/18 06:00 O2 Sat by Pulse Oximetry (%) 100 10/12/18 21:00 Cardiovascular: Yes: S1, S2 Respiratory: Yes: Regular, CTA Bilaterally Gastrointestinal: Yes: Normal Bowel Sounds, Soft Edema: Yes Wound/Incision: Yes: Excoriated Labs: CBC, BMP 10/13/18 05:05 10/13/18 05:05 Assessment/Plan - Problems (1) Sepsis Assessment/Plan: Likely secondary to CAP vs Cellulitis Chest Xray report super imposed basilar infiltrate cannot be excluded Vancomycin and Zosyn given in ED, will continue renal dosing Appreciate ID consult Microbiology 10/12/18 06:00 Blood - Peripheral Venous Blood Culture - Preliminary NO GROWTH OBTAINED AFTER 24 HOURS, INCUBATION TO CONTINUE FOR 4 DAYS. 10/12/18 06:15 Blood - Peripheral Venous Blood Culture - Preliminary NO GROWTH OBTAINED AFTER 24 HOURS, INCUBATION TO CONTINUE FOR 4 DAYS. 10/10/18 14:37 Blood - Peripheral Venous Blood Culture - Preliminary NO GROWTH OBTAINED AFTER 48 HOURS, INCUBATION TO CONTINUE FOR 3 DAYS. 10/10/18 14:37 Blood - Peripheral Venous Blood Culture - Final Beta Hem Streptococcus Group C 10/10/18 15:40 Urine - Urine Clean Catch Urine Culture - Final Diphtheroid/Corynebacterium 10/11/18 01:35 Urine For Antigen Detection Legionella Antigen - Final 10/11/18 01:35 Urine For Antigen Detection Streptococcus pneumoniae Antigen (M - Final Code(s): A41.9 - SEPSIS, UNSPECIFIED ORGANISM (2) Pneumonia Assessment/Plan: See above Code(s): J18.9 - PNEUMONIA, UNSPECIFIED ORGANISM Qualifiers: Pneumonia type: due to unspecified organism Laterality: unspecified laterality Lung location: unspecified part of lung Qualified Code(s): J18.9 - Pneumonia, unspecified organism (3) Chest pain on exertion Assessment/Plan: r/o ACS Cardiac monitoring Serial Enzymes elevated Appreciate Cardiology consult EKG- NSR no ST or TWI noted, change compared to prior study Tachycardia Code(s): R07.9 - CHEST PAIN, UNSPECIFIED (4) Hyperkalemia Code(s): E87.5 - HYPERKALEMIA (5) Afib Assessment/Plan: stable [id number] EKG- reviewed Continue Eliquis Code(s): I48.91 - UNSPECIFIED ATRIAL FIBRILLATION Qualifiers: Atrial fibrillation type: unspecified Qualified Code(s): I48.91 - Unspecified atrial fibrillation (6) CAD (coronary artery disease) Assessment/Plan: s/p Stents Continue home meds EKG- reviewed recurrent cp--cardio follow up-- Laboratory Tests 10/12/18 10/12/18 06:15 20:42 Troponin I 0.91 H* 0.55 H Code(s): I25.10 - ATHSCL HEART DISEASE OF [place] CORONARY ARTERY W/O ANG PCTRS (7) CHF (congestive heart failure) Assessment/Plan: Chest Xray- congestive changes BNP- pending Continue Torsemide Strict INOs Daily weights Appreciate Cardiology consult Code(s): I50.9 - HEART FAILURE, UNSPECIFIED Qualifiers: Heart failure chronicity: chronic congestive heart failure (8) HTN (hypertension) Assessment/Plan: sub optimal Monitor BP Continue Valsartan Hold Hydralazine secondary to Hyperkalemia Monitor renal function Code(s): I10 - ESSENTIAL (PRIMARY) HYPERTENSION (9) CKD (chronic kidney disease) Assessment/Plan: Cr 1.5 at baseline Monitor BMP Avoid Nephrotoxic drugs Code(s): N18.9 - CHRONIC KIDNEY DISEASE, UNSPECIFIED (10) Diabetes Assessment/Plan: Stable BGMs ISS Code(s): E11.9 - TYPE 2 DIABETES MELLITUS WITHOUT COMPLICATIONS Qualifiers: Diabetes mellitus type: type 2 Diabetes mellitus manager intermediate insulin use: with manager intermediate use Diabetes mellitus complication status: without complication Qualified Code(s): E11.9 - Type 2 diabetes mellitus without complications; Z79.4 - manager intermediate (current) use of insulin (11) HLD (hyperlipidemia) Assessment/Plan: Stable Continue Lipitor Monitor LFTs Code(s): E78.5 - HYPERLIPIDEMIA, UNSPECIFIED (12) Gout Assessment/Plan: Stable No acute flare Code(s): M10.9 - GOUT, UNSPECIFIED Qualifiers: Gout site: foot (13) Leukemia Assessment/Plan: Appreciate Oncology consult (14) PAD (peripheral artery disease) Assessment/Plan: Appreciate Vascular consult Code(s): I73.9 - PERIPHERAL VASCULAR DISEASE, UNSPECIFIED (15) Venous (peripheral) insufficiency Assessment/Plan: See above vascular consult Code(s): I87.2 - VENOUS INSUFFICIENCY (CHRONIC) (PERIPHERAL) (16) Morbid obesity with BMI of 50.0-59.9, adult Assessment/Plan: Carb Control Diet Code(s): E66.01 - MORBID (SEVERE) OBESITY DUE TO EXCESS CALORIES; Z68.43 - BODY MASS INDEX (BMI) 50-59.9, ADULT
[2018-10-13] MEDS ORDERED: PT OWN MED DRAWER 7, Y5N ONE ×2 (10:29→19:20)
[2018-10-13] MEDS ORDERED: DEXTROSE 5%-WATER 100 ML IVPB ONE (10:29)
[2018-10-13] MEDS: CEFTRIAXONE 2 GM in DEXTROSE 5%-WATER 100 ML IVPB SCH (10:47)
[2018-10-13] MEDS: TORSEMIDE 20 MG TABLET (FP) PO SCH (10:48)
[2018-10-13] MEDS: APIXABAN 5 MG TABLET PO SCH ×2 (10:49→21:45)
[2018-10-13] MEDS: VALSARTAN 160 MG TABLET (UD) PO SCH (10:49)
[2018-10-13] MEDS: GABAPENTIN 300 MG CAPSULE (FP) PO SCH ×2 (10:49→21:45)
[2018-10-13] MEDS: CLOPIDOGREL BISULFATE 75 MG TABLET (FP) PO SCH (10:49)
--- NOTE | 2018-10-13 11:33 | PN ---
Progress Note (short form) - Note Progress Note: s: no sob palps dizzy. occasional episodes of chest and low back pain, trops trending down. Current Medications Acetaminophen (Tylenol -) 650 mg PO Q6H PRN PRN Reason: PAIN OR FEVER Last Admin: 10/12/18 22:30 Dose: 650 mg Apixaban (Eliquis -) 5 mg PO BID [facility] Last Admin: 10/13/18 10:49 Dose: 5 mg Atorvastatin Calcium (Lipitor -) 40 mg PO HS [facility] Last Admin: 10/12/18 22:26 Dose: 40 mg Clopidogrel Bisulfate (Plavix -) 75 mg PO DAILY [facility] Last Admin: 10/13/18 10:49 Dose: 75 mg Cyclosporine (Sandimmune) 100 mg PO BID [facility] Last Admin: 10/12/18 22:29 Dose: 100 mg Gabapentin (Neurontin -) 300 mg PO BID [facility] Last Admin: 10/13/18 10:49 Dose: 300 mg Ceftriaxone Sodium 2 gm/ (Dextrose) 100 mls @ 100 mls/hr IVPB DAILY [facility]; Protocol Last Admin: 10/13/18 10:47 Dose: 100 mls/hr Torsemide (Demadex -) 50 mg PO DAILY [facility] Last Admin: 10/13/18 10:48 Dose: 50 mg Valsartan (Diovan -) 160 mg PO DAILY [facility] Last Admin: 10/13/18 10:49 Dose: 160 mg Vitamin A/Vitamin D (Vitamin A & D Top Oint -) 1 applic TP BID PRN PRN Reason: WOUND CARE Vital Signs Period Temp Pulse Resp BP Sys/Reddy Pulse Ox Last 24 Hr 98.2 F-98.9 F 71-99 18-20 133-151/44-77 96-100 Constitutional: Yes: No Distress, Obese Eyes: No: Sclera Icterus Respiratory: Yes: CTA Bilaterally. No: Accessory Muscle Use, Rales, Wheezes Gastrointestinal: Yes: Normal Bowel Sounds. No: Distention, Hepatomegaly, Palpable Mass, Tenderness Cardiovascular: Yes: Regular Rate and Rhythm JVD: No Carotid Bruit: No PMI: Non-Displaced Heart Sounds: Yes: S1, S2. No: Gallop Murmur: No: Systolic Murmur, Diastolic Murmur Extremities: No: Cool, Cyanosis Edema: chronic venous stasis changes, non pitting edema Peripheral Pulses: pos dp pt no carotid bruits Integumentary: No: Jaundice Neurological: Yes: Alert, Oriented (x3) Psychiatric: No: Agitated ecg: sr, nl intervals, no ischemic changes cxr: r eff/infiltrate Echo 03/27: nl LV/EF; nl RV; valve fxn WNL tele: SR a/p: 63 m hx cad s/p pci (10/2012 darryn to pLCx and dLCx, residual 30-50% in mRCA, pLAD, mLAD), dchf, venous insuff, morbid obesity, ckd, htn, hld, dm, pafib, dvt , foot ulcers, leukemia here with sepsis. sepsis: -on abx per ID -+bld cx paroxysmal Afib/sinus gabriela -in sr now -off bb since had episode of gabriela in past -cont home eliquis CAD: -atypical CP, ecg w/o ischemic changes -trops mildly elevated with nl ck. Most likely due to sepsis, does not appear to be acs, trended down. Cont tele. Cont home eliquis, plavix, statin, arb. -check echo -was planned for outpt stress due to chronic leong but given +trops here will likely proceed with cardiac cath when acute infection issues resolved. HFpEF/venous insuff/edema -stable, cont home torsemide HTN -cont home arb gopal on ckd -likely 2/2 sepsis, monitor cr
[2018-10-13 11:40] LABS: ANISOCYTOSIS 0; MACROCYTOSIS 0; OVALOCYTE 1+; PLATELET ESTIMATE DECREASED; TEAR DROP CELLS 1+
--- NOTE | 2018-10-13 12:43 | EKG ---
Test Reason : Blood Pressure : / mmHG Vent. Rate : 080 BPM Atrial Rate : 080 BPM P-R Int : 224 ms QRS Dur : 092 ms QT Int : 354 ms P-R-T Axes : 008 -53 026 degrees QTc Int : 408 ms SINUS RHYTHM WITH 1ST DEGREE A-V BLOCK LEFT AXIS DEVIATION INFERIOR INFARCT , AGE UNDETERMINED ABNORMAL ECG Confirmed by Leighton Lazaro MD ([id number]) on 10/13/2018 12:43:17 PM Referred By: Confirmed By:Leighton Lazaro MD
--- NOTE | 2018-10-13 15:36 | ECHO ---
Version: 1 Name: ESTEFANIA WAKEFIELD Exam: Adult Echocardiogram Study Date: 10/13/2018, 1:15 PM Age: 63 Years MMode/2D Measurements & Calculations IVSd: 1.23 cm LVIDs: 3.6 cm LVIDd: 5.8 cm LVPWd: 1.10 cm LVOT diam: 2.08 cm Ao root diam: 3.1 cm LA dimension: 4.3 cm Doppler Measurements & Calculations MV E max albaro: 69.7 cm/sec Med E/e': 9.2 MV A max albaro: 104.9 cm/sec Med Peak E' Albaro: 7.6 cm/sec MV E/A: 0.66 Lat E/e': 12.1 Lat Peak E' Albaro: 5.8 cm/sec Ao max P.2 mmHg GERARD(I,D): 2.8 cm Ao mean P.1 mmHg LV V1 mean: 65.0 cm/sec Ao V2 max: 114.4 cm/sec LV V1 mean P.00 mmHg TR max albaro: 234.1 cm/sec TR max P.9 mmHg Left Ventricle The left ventricular size, thickness and function are normal. Abnormal diastolic compliance. Right Ventricle The right ventricle is normal in size and function. Atria The left atrium is mildly dilated. Right atrial size is normal. Mitral Valve The mitral valve is grossly normal. Tricuspid Valve The tricuspid valve is normal. There is mild tricuspid regurgitation. Aortic Valve The aortic valve is normal in structure and function. Pulmonic Valve The pulmonic valve is normal in structure and function. Great Vessels The aortic root is normal size. Pericardium/Pleura There is no pericardial effusion. Summary Statements The left ventricular size, thickness and function are normal The right ventricle is normal in size and function. The left atrium is mildly dilated. Right atrial size is normal. The mitral valve is grossly normal. There is mild tricuspid regurgitation. The aortic valve is normal in structure and function. The pulmonic valve is normal in structure and function. Abnormal diastolic compliance. EF 66% PASP 27 mmHg MD Victor Hugo Haynes 10/13/2018, 2:35 PM Ordering Physician: Glenn Toribio Referring Physician: GREER FREEDMAN Performed By: Yari Telles
[2018-10-13] MEDS: ATORVASTATIN CA 40 MG TABLET (FP) PO SCH (21:45)
--- NOTE | 2018-10-13 22:58 | PN ---
Progress Note, Physician History of Present Illness: AWAKE,ALERT SEATED IN BED FEELING BETTER TEMPS DOWN AFEBRILE REPEAT BC (-) ECHO NO VEGETATIONS - Current Medication List Current Medications: Active Medications Acetaminophen (Tylenol -) 650 mg PO Q6H PRN PRN Reason: PAIN OR FEVER Last Admin: 10/12/18 22:30 Dose: 650 mg Apixaban (Eliquis -) 5 mg PO BID [facility] Last Admin: 10/13/18 21:45 Dose: 5 mg Atorvastatin Calcium (Lipitor -) 40 mg PO HS [facility] Last Admin: 10/13/18 21:45 Dose: 40 mg Clopidogrel Bisulfate (Plavix -) 75 mg PO DAILY [facility] Last Admin: 10/13/18 10:49 Dose: 75 mg Cyclosporine (Sandimmune) 100 mg PO BID [facility] Last Admin: 10/13/18 21:48 Dose: Not Given Gabapentin (Neurontin -) 300 mg PO BID [facility] Last Admin: 10/13/18 21:45 Dose: 300 mg Ceftriaxone Sodium 2 gm/ (Dextrose) 100 mls @ 100 mls/hr IVPB DAILY [facility]; Protocol Last Admin: 10/13/18 10:47 Dose: 100 mls/hr Torsemide (Demadex -) 50 mg PO DAILY [facility] Last Admin: 10/13/18 10:48 Dose: 50 mg Valsartan (Diovan -) 160 mg PO DAILY [facility] Last Admin: 10/13/18 10:49 Dose: 160 mg Vitamin A/Vitamin D (Vitamin A & D Top Oint -) 1 applic TP BID PRN PRN Reason: WOUND CARE - Objective Vital Signs: Vital Signs Temperature 98.8 F 10/13/18 21:10 Pulse Rate 96 H 10/13/18 21:10 Respiratory Rate 20 10/13/18 21:10 Blood Pressure 156/65 10/13/18 21:10 O2 Sat by Pulse Oximetry (%) 99 10/13/18 21:00 Constitutional: Yes: No Distress, Obese Cardiovascular: Yes: Regular Rate and Rhythm, S1, S2 Respiratory: Yes: CTA Bilaterally Gastrointestinal: Yes: Normal Bowel Sounds, Soft, Abdomen, Obese. No: Tenderness Edema: Yes Edema: LLE: 2+, RLE: 2+ Integumentary: Yes: Venous Stasis Changes, Other (+ SL ERYTHEMA/WARMTH R LE) Labs: CBC, BMP 10/13/18 05:05 10/13/18 05:05 Assessment/Plan GRP C STREP BACTEREMIA, PROBABLE SKIN SOURCE CELLULITIS L LE REPEAT BC NO GROWTH ECHO NO VEGETATIONS CONTINUE CEFTRIAXONE
[2018-10-14] MEDS ORDERED: DEXTROSE 5%-WATER 100 ML IVPB ONE (09:35)
--- NOTE | 2018-10-14 09:50 | PN ---
Progress Note, Physician - Current Medication List Current Medications: Active Medications Acetaminophen (Tylenol -) 650 mg PO Q6H PRN PRN Reason: PAIN OR FEVER Last Admin: 10/12/18 22:30 Dose: 650 mg Apixaban (Eliquis -) 5 mg PO BID [facility] Last Admin: 10/13/18 21:45 Dose: 5 mg Atorvastatin Calcium (Lipitor -) 40 mg PO HS [facility] Last Admin: 10/13/18 21:45 Dose: 40 mg Clopidogrel Bisulfate (Plavix -) 75 mg PO DAILY [facility] Last Admin: 10/13/18 10:49 Dose: 75 mg Cyclosporine (Sandimmune) 100 mg PO BID [facility] Last Admin: 10/13/18 21:48 Dose: Not Given Gabapentin (Neurontin -) 300 mg PO BID [facility] Last Admin: 10/13/18 21:45 Dose: 300 mg Ceftriaxone Sodium 2 gm/ (Dextrose) 100 mls @ 100 mls/hr IVPB DAILY [facility]; Protocol Last Admin: 10/13/18 10:47 Dose: 100 mls/hr Insulin Aspart (Novolog Vial) 0 units SQ ACHS [facility]; Protocol Torsemide (Demadex -) 50 mg PO DAILY [facility] Last Admin: 10/13/18 10:48 Dose: 50 mg Valsartan (Diovan -) 160 mg PO DAILY [facility] Last Admin: 10/13/18 10:49 Dose: 160 mg Vitamin A/Vitamin D (Vitamin A & D Top Oint -) 1 applic TP BID PRN PRN Reason: WOUND CARE - Objective Vital Signs: Vital Signs Temperature 98.9 F 10/14/18 05:47 Pulse Rate 77 10/14/18 05:47 Respiratory Rate 20 10/14/18 05:47 Blood Pressure 146/75 10/14/18 05:47 O2 Sat by Pulse Oximetry (%) 99 10/13/18 21:00 Cardiovascular: Yes: S1, S2 Respiratory: Yes: Regular, CTA Bilaterally Gastrointestinal: Yes: Normal Bowel Sounds, Soft Edema: Yes Integumentary: Yes: Venous Stasis Changes Labs: CBC, BMP 10/13/18 05:05 10/13/18 05:05 Assessment/Plan - Problems (1) Sepsis Assessment/Plan: Likely secondary to CAP vs Cellulitis Chest Xray report super imposed basilar infiltrate cannot be excluded Vancomycin and Zosyn given in ED, will continue renal dosing Appreciate ID consult--follow up regarding abx Microbiology 10/12/18 06:00 Blood - Peripheral Venous Blood Culture - Preliminary NO GROWTH OBTAINED AFTER 24 HOURS, INCUBATION TO CONTINUE FOR 4 DAYS. 10/12/18 06:15 Blood - Peripheral Venous Blood Culture - Preliminary NO GROWTH OBTAINED AFTER 24 HOURS, INCUBATION TO CONTINUE FOR 4 DAYS. 10/10/18 14:37 Blood - Peripheral Venous Blood Culture - Preliminary NO GROWTH OBTAINED AFTER 48 HOURS, INCUBATION TO CONTINUE FOR 3 DAYS. 10/10/18 14:37 Blood - Peripheral Venous Blood Culture - Final Beta Hem Streptococcus Group C 10/10/18 15:40 Urine - Urine Clean Catch Urine Culture - Final Diphtheroid/Corynebacterium 10/11/18 01:35 Urine For Antigen Detection Legionella Antigen - Final 10/11/18 01:35 Urine For Antigen Detection Streptococcus pneumoniae Antigen (M - Final Code(s): A41.9 - SEPSIS, UNSPECIFIED ORGANISM (2) Pneumonia Assessment/Plan: See above Code(s): J18.9 - PNEUMONIA, UNSPECIFIED ORGANISM Qualifiers: Pneumonia type: due to unspecified organism Laterality: unspecified laterality Lung location: unspecified part of lung Qualified Code(s): J18.9 - Pneumonia, unspecified organism (3) Chest pain on exertion Assessment/Plan: r/o ACS Cardiac monitoring Serial Enzymes elevated Appreciate Cardiology consult EKG- NSR no ST or TWI noted, change compared to prior study Tachycardia Code(s): R07.9 - CHEST PAIN, UNSPECIFIED (4) Hyperkalemia Code(s): E87.5 - HYPERKALEMIA (5) Afib Assessment/Plan: stable [id number] EKG- reviewed Continue Eliquis Code(s): I48.91 - UNSPECIFIED ATRIAL FIBRILLATION Qualifiers: Atrial fibrillation type: unspecified Qualified Code(s): I48.91 - Unspecified atrial fibrillation (6) CAD (coronary artery disease) Assessment/Plan: s/p Stents Continue home meds EKG- reviewed recurrent cp--cardio follow up--for cath Laboratory Tests 10/12/18 10/12/18 06:15 20:42 Troponin I 0.91 H* 0.55 H Code(s): I25.10 - ATHSCL HEART DISEASE OF [place] CORONARY ARTERY W/O ANG PCTRS (7) CHF (congestive heart failure) Assessment/Plan: Chest Xray- congestive changes BNP- pending Continue Torsemide Strict INOs Daily weights Appreciate Cardiology consult Code(s): I50.9 - HEART FAILURE, UNSPECIFIED Qualifiers: Heart failure chronicity: chronic congestive heart failure (8) HTN (hypertension) Assessment/Plan: sub optimal Monitor BP Continue Valsartan Hold Hydralazine secondary to Hyperkalemia Monitor renal function Code(s): I10 - ESSENTIAL (PRIMARY) HYPERTENSION (9) CKD (chronic kidney disease) Assessment/Plan: Cr 1.5 at baseline Monitor BMP Avoid Nephrotoxic drugs Code(s): N18.9 - CHRONIC KIDNEY DISEASE, UNSPECIFIED (10) Diabetes Assessment/Plan: Stable BGMs ISS Code(s): E11.9 - TYPE 2 DIABETES MELLITUS WITHOUT COMPLICATIONS Qualifiers: Diabetes mellitus type: type 2 Diabetes mellitus mcfp insulin use: with mcfp use Diabetes mellitus complication status: without complication Qualified Code(s): E11.9 - Type 2 diabetes mellitus without complications; Z79.4 - exterminator termite (current) use of insulin (11) HLD (hyperlipidemia) Assessment/Plan: Stable Continue Lipitor Monitor LFTs Code(s): E78.5 - HYPERLIPIDEMIA, UNSPECIFIED (12) Gout Assessment/Plan: Stable No acute flare Code(s): M10.9 - GOUT, UNSPECIFIED Qualifiers: Gout site: foot (13) Leukemia Assessment/Plan: Appreciate Oncology consult (14) PAD (peripheral artery disease) Assessment/Plan: Appreciate Vascular consult Code(s): I73.9 - PERIPHERAL VASCULAR DISEASE, UNSPECIFIED (15) Venous (peripheral) insufficiency Assessment/Plan: See above vascular consult Code(s): I87.2 - VENOUS INSUFFICIENCY (CHRONIC) (PERIPHERAL) (16) Morbid obesity with BMI of 50.0-59.9, adult Assessment/Plan: Carb Control Diet Code(s): E66.01 - MORBID (SEVERE) OBESITY DUE TO EXCESS CALORIES; Z68.43 - BODY MASS INDEX (BMI) 50-59.9, ADULT
[2018-10-14] MEDS: TORSEMIDE 20 MG TABLET (FP) PO SCH (11:05)
[2018-10-14] MEDS: CLOPIDOGREL BISULFATE 75 MG TABLET (FP) PO SCH (11:06)
[2018-10-14] MEDS: VALSARTAN 160 MG TABLET (UD) PO SCH (11:07)
[2018-10-14] MEDS: APIXABAN 5 MG TABLET PO SCH ×2 (11:07→22:20)
[2018-10-14] MEDS: GABAPENTIN 300 MG CAPSULE (FP) PO SCH ×2 (11:07→22:20)
--- NOTE | 2018-10-14 11:07 | PN ---
Progress Note (short form) - Note Progress Note: s: no sob palps dizzy chest pain Current Medications Acetaminophen (Tylenol -) 650 mg PO Q6H PRN PRN Reason: PAIN OR FEVER Last Admin: 10/12/18 22:30 Dose: 650 mg Apixaban (Eliquis -) 5 mg PO BID [facility] Last Admin: 10/13/18 21:45 Dose: 5 mg Atorvastatin Calcium (Lipitor -) 40 mg PO HS [facility] Last Admin: 10/13/18 21:45 Dose: 40 mg Clopidogrel Bisulfate (Plavix -) 75 mg PO DAILY [facility] Last Admin: 10/13/18 10:49 Dose: 75 mg Cyclosporine (Sandimmune) 100 mg PO BID [facility] Last Admin: 10/13/18 21:48 Dose: Not Given Gabapentin (Neurontin -) 300 mg PO BID [facility] Last Admin: 10/13/18 21:45 Dose: 300 mg Ceftriaxone Sodium 2 gm/ (Dextrose) 100 mls @ 100 mls/hr IVPB DAILY [facility]; Protocol Last Admin: 10/13/18 10:47 Dose: 100 mls/hr Insulin Aspart (Novolog Vial Sliding Scale -) 1 vial SQ ACHS [facility]; Protocol Torsemide (Demadex -) 50 mg PO DAILY [facility] Last Admin: 10/13/18 10:48 Dose: 50 mg Valsartan (Diovan -) 160 mg PO DAILY [facility] Last Admin: 10/13/18 10:49 Dose: 160 mg Vitamin A/Vitamin D (Vitamin A & D Top Oint -) 1 applic TP BID PRN PRN Reason: WOUND CARE Vital Signs Period Temp Pulse Resp BP Sys/Reddy Pulse Ox Last 24 Hr 97.8 F-98.9 F 59-96 20-20 140-165/55-87 99 Constitutional: Yes: No Distress, Obese Eyes: No: Sclera Icterus Respiratory: Yes: CTA Bilaterally. No: Accessory Muscle Use, Rales, Wheezes Gastrointestinal: Yes: Normal Bowel Sounds. No: Distention, Hepatomegaly, Palpable Mass, Tenderness Cardiovascular: Yes: Regular Rate and Rhythm JVD: No Carotid Bruit: No PMI: Non-Displaced Heart Sounds: Yes: S1, S2. No: Gallop Murmur: No: Systolic Murmur, Diastolic Murmur Extremities: No: Cool, Cyanosis Edema: chronic venous stasis changes, non pitting edema Peripheral Pulses: pos dp pt no carotid bruits Integumentary: No: Jaundice Neurological: Yes: Alert, Oriented (x3) Psychiatric: No: Agitated ecg: sr, nl intervals, no ischemic changes cxr: r eff/infiltrate Echo 03/27: nl LV/EF; nl RV; valve fxn WNL echo 10/2018 nl LV/RV function, LA mildly dilated, abnormal diastolic function tele: SR a/p: 63 m hx cad s/p pci (10/2012 darryn to pLCx and dLCx, residual 30-50% in mRCA, pLAD, mLAD), dchf, venous insuff, morbid obesity, ckd, htn, hld, dm, pafib, dvt , foot ulcers, leukemia here with sepsis. sepsis: -on abx per ID -+bld cx paroxysmal Afib/sinus gabriela -in sr now -off bb since had episode of gabriela in past -cont home eliquis CAD: -atypical CP, ecg w/o ischemic changes -trops mildly elevated with nl ck. Most likely due to sepsis, does not appear to be acs, trended down. Cont tele. Cont home eliquis, plavix, statin, arb. -echo unremarkable -was planned for outpt stress due to chronic leong but given +trops here will likely proceed with cardiac cath when acute infection issues resolved. HFpEF/venous insuff/edema -stable, cont home torsemide HTN -cont home arb gopal on ckd -likely 2/2 sepsis, monitor cr
[2018-10-14] MEDS: CEFTRIAXONE 2 GM in DEXTROSE 5%-WATER 100 ML IVPB SCH (11:08)
[2018-10-14] MEDS: INSULIN SLIDING SCALE (NOVOLOG) 1 VIAL SQ SCH ×3 (12:45→22:20)
--- NOTE | 2018-10-14 20:20 | PN ---
Progress Note (short form) - Note Progress Note: Patient seen and discussed with family at bedside Rising creatinine---? diuretics Falling WBC ---? infection , ?? ceftriaxone -- 2% incidence reported , ? other Will need renal/cardiology to reasses Will need ID to f/u For now -- continue to with-hold cyclosporine as it can depress WBC's and further compromise kidney status.
[2018-10-14] MEDS: ATORVASTATIN CA 40 MG TABLET (FP) PO SCH (22:19)
[2018-10-15] MEDS: INSULIN SLIDING SCALE (NOVOLOG) 1 VIAL SQ SCH ×4 (06:47→21:45)
[2018-10-15] MEDS ORDERED: DEXTROSE 5%-WATER 100 ML IVPB ONE (07:37)
[2018-10-15] MEDS: TORSEMIDE 20 MG TABLET (FP) PO SCH (10:35)
[2018-10-15] MEDS: APIXABAN 5 MG TABLET PO SCH ×2 (10:35→21:45)
[2018-10-15] MEDS: VALSARTAN 160 MG TABLET (UD) PO SCH (10:35)
[2018-10-15] MEDS: GABAPENTIN 300 MG CAPSULE (FP) PO SCH ×2 (10:35→21:45)
[2018-10-15] MEDS: CEFTRIAXONE 2 GM in DEXTROSE 5%-WATER 100 ML IVPB SCH (10:35)
[2018-10-15] MEDS: CLOPIDOGREL BISULFATE 75 MG TABLET (FP) PO SCH (10:36)
--- NOTE | 2018-10-15 11:54 | PN ---
Progress Note (short form) - Note Progress Note: s: no cp sob palps dizzy Current Medications Generic Name Dose Route Start Last Admin Trade Name Freq PRN Reason Stop Dose Admin Acetaminophen 650 mg 10/11/18 00:45 10/12/18 22:30 Tylenol - PO 650 mg Q6H PRN Administration PAIN OR FEVER Apixaban 5 mg 10/10/18 22:15 10/15/18 10:35 Eliquis - PO 5 mg BID [facility] Administration Atorvastatin Calcium 40 mg 10/11/18 22:00 10/14/18 22:19 Lipitor - PO 40 mg HS [facility] Administration Clopidogrel Bisulfate 75 mg 10/11/18 10:00 10/15/18 10:36 Plavix - PO 75 mg DAILY [facility] Administration Cyclosporine 100 mg 10/10/18 23:45 10/15/18 10:36 Sandimmune PO Not Given BID [facility] Gabapentin 300 mg 10/10/18 22:15 10/15/18 10:35 Neurontin - PO 300 mg BID [facility] Administration Ceftriaxone Sodium 2 gm/ 100 mls @ 100 mls/hr 10/11/18 15:00 10/15/18 10:35 Dextrose IVPB 100 mls/hr DAILY [facility] Administration Protocol Insulin Aspart 1 vial 10/14/18 11:00 10/15/18 06:47 Novolog Vial Sliding Scale - SQ Not Given ACHS [facility] Protocol Torsemide 50 mg 10/11/18 10:00 10/15/18 10:35 Demadex - PO 50 mg DAILY [facility] Administration Valsartan 160 mg 10/11/18 10:00 10/15/18 10:35 Diovan - PO 160 mg DAILY [facility] Administration Vitamin A/Vitamin D 1 applic 10/12/18 03:40 Vitamin A & D Top Oint - TP BID PRN WOUND CARE Vital Signs Period Temp Pulse Resp BP Sys/Reddy Pulse Ox Last 24 Hr 97.6 F-98.3 F 72-94 20-20 133-172/55-79 98 Constitutional: Yes: No Distress, Obese Eyes: No: Sclera Icterus Respiratory: Yes: CTA Bilaterally. No: Accessory Muscle Use, Rales, Wheezes Gastrointestinal: Yes: Normal Bowel Sounds. No: Distention, Hepatomegaly, Palpable Mass, Tenderness Cardiovascular: Yes: Regular Rate and Rhythm JVD: No Carotid Bruit: No PMI: Non-Displaced Heart Sounds: Yes: S1, S2. No: Gallop Murmur: No: Systolic Murmur, Diastolic Murmur Extremities: No: Cool, Cyanosis Edema: chronic venous stasis changes, non pitting edema Peripheral Pulses: pos dp pt no carotid bruits Integumentary: No: Jaundice Neurological: Yes: Alert, Oriented (x3) Psychiatric: No: Agitated CBC, BMP 10/13/18 05:05 10/13/18 05:05 ecg: sr, nl intervals, no ischemic changes cxr: r eff/infiltrate Echo 03/27: nl LV/EF; nl RV; valve fxn WNL tele: SR a/p: 63 m hx cad s/p pci (10/2012 darryn to pLCx and dLCx, residual 30-50% in mRCA, pLAD, mLAD), dchf, venous insuff, morbid obesity, ckd, htn, hld, dm, pafib, dvt , foot ulcers, leukemia here with sepsis. sepsis: -on abx per ID -+bld cx paroxysmal Afib/sinus gabriela -in sr now -off bb since had episode of gabriela in past -cont home eliquis CAD: -no chest pain sxs, ecg w/o ischemic changes -trops mildly elevated with nl ck. Most likely due to sepsis, does not appear to be acs. Cont to trend. Cont tele. Cont home eliquis, plavix, statin, arb. -echo here unremarkable -was planned for outpt stress due to chronic leong but given +trops here will likely proceed with cardiac cath when acute infection issues resolved. HFpEF/venous insuff/edema -stable, cont home torsemide HTN -cont home arb, may need to add hydralazine 25 bid if persistent htn gopal on ckd -likely 2/2 sepsis, monitor cr
--- NOTE | 2018-10-15 12:23 | PN ---
Progress Note, Physician Chief Complaint: patient seen and examined no CP family member wants patient transferred to [facility] for cardiac cath explained regarding positive blood culture will need another 5-7 days of iv rocephin - Current Medication List Current Medications: Active Medications Acetaminophen (Tylenol -) 650 mg PO Q6H PRN PRN Reason: PAIN OR FEVER Last Admin: 10/12/18 22:30 Dose: 650 mg Apixaban (Eliquis -) 5 mg PO BID [facility] Last Admin: 10/15/18 10:35 Dose: 5 mg Atorvastatin Calcium (Lipitor -) 40 mg PO HS [facility] Last Admin: 10/14/18 22:19 Dose: 40 mg Clopidogrel Bisulfate (Plavix -) 75 mg PO DAILY [facility] Last Admin: 10/15/18 10:36 Dose: 75 mg Cyclosporine (Sandimmune) 100 mg PO BID [facility] Last Admin: 10/15/18 10:36 Dose: Not Given Gabapentin (Neurontin -) 300 mg PO BID [facility] Last Admin: 10/15/18 10:35 Dose: 300 mg Ceftriaxone Sodium 2 gm/ (Dextrose) 100 mls @ 100 mls/hr IVPB DAILY [facility]; Protocol Last Admin: 10/15/18 10:35 Dose: 100 mls/hr Insulin Aspart (Novolog Vial Sliding Scale -) 1 vial SQ ACHS [facility]; Protocol Last Admin: 10/15/18 06:47 Dose: Not Given Torsemide (Demadex -) 50 mg PO DAILY [facility] Last Admin: 10/15/18 10:35 Dose: 50 mg Valsartan (Diovan -) 160 mg PO DAILY [facility] Last Admin: 10/15/18 10:35 Dose: 160 mg Vitamin A/Vitamin D (Vitamin A & D Top Oint -) 1 applic TP BID PRN PRN Reason: WOUND CARE - Objective Vital Signs: Vital Signs Temperature 98.3 F 10/15/18 06:00 Pulse Rate 80 10/15/18 06:00 Respiratory Rate 20 10/15/18 06:00 Blood Pressure 154/76 10/15/18 06:00 O2 Sat by Pulse Oximetry (%) 98 10/14/18 21:00 Constitutional: Yes: Calm Cardiovascular: Yes: Regular Rate and Rhythm, S1, S2 Respiratory: Yes: CTA Bilaterally Gastrointestinal: Yes: Normal Bowel Sounds, Soft Extremities: Yes: Other (chronic skin changes) Edema: Yes Labs: CBC, BMP 10/13/18 05:05 10/13/18 05:05 Problem List - Problems (1) Bacteremia Assessment/Plan: Microbiology 10/10/18 14:37 Blood - Peripheral Venous Blood Culture - Final Beta Hem Streptococcus Group C iv rocephin will need 10 days iv abx explained to patient about picc line cannot clear patient for cardiac cath til bacteremia resolves Code(s): R78.81 - BACTEREMIA (2) Chest pain on exertion Assessment/Plan: petros continue statin eliquis plavix and arb further work up cardiology once bacteremia resolved Code(s): R07.9 - CHEST PAIN, UNSPECIFIED (3) Leg edema Assessment/Plan: torsemide Code(s): R60.0 - LOCALIZED EDEMA (4) CKD (chronic kidney disease) Assessment/Plan: renal evaluation dr coyle check labs Code(s): N18.9 - CHRONIC KIDNEY DISEASE, UNSPECIFIED
--- NOTE | 2018-10-15 14:02 | CONSULT ---
Consult Consult Specialty:: Nephrology Reason for Consultation:: ZHANG - History of Present Illness Chief Complaint: malaise, admitted with sepsis History of Present Illness: Pt is a 63 year old male with pmhx of ckd, morbid obesity, cad with pci, chf, htn, hld, dm, p-a-fib, leukemia and dvt who is admitted for treatment of sepis. He was also found to be bacteremic. It is thought that etiology of sepsis is a skin source. His renal function has been worsening and I was called to evaluate him. He has been on abx and he was given lasix. He feels that his lower ext edema is improved. He denies shortness of breath. 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: Peripheral Neuropathy Cardio/Vascular: Yes: AFIB, CAD, CHF, HTN, Hyperlipdemia Gastrointestinal: Yes: GERD Renal/: Yes: Renal Inusuff, Other (zhang) Infectious Disease: Yes: Other (osteomyelitis of left fifth metartarsal 2011) Endocrine: Yes: Diabetes Mellitus Additional Medical History: morbid obesity - Past Surgical History Past Surgical History: Yes: Stent (X2) - Alcohol/Substance Use Hx Alcohol Use: No History of Substance Use: reports: None - Smoking History Smoking history: Never smoked Have you smoked in the past 12 months: No Aproximately how many cigarettes per day: 0 - Social History Usual Living Arrangement: With Spouse ADL: Independent History of Recent Travel: No Home Medications - Allergies Allergies/Adverse Reactions: Allergies Allergy/AdvReac Type Severity Reaction Status Date / Time No Known Drug Allergies Allergy Verified 10/10/18 14:30 - Home Medications Home Medications: Ambulatory Orders Clopidogrel Bisulfate [Plavix -] 75 mg PO DAILY 05/17/16 Cyclosporine [Sandimmune] 100 mg PO BID 05/17/16 Gabapentin 300 mg PO BID 05/17/16 Potassium Chloride [K-Dur -] 20 meq PO DAILY 05/17/16 Atorvastatin Ca [Lipitor] 40 mg PO DAILY 07/23/16 Apixaban [Eliquis -] 5 mg PO BID tablet 07/25/16 Colchicine 0.6 mg PO DAILY 12/02/16 Torsemide [Demadex -] 50 mg PO DAILY 12/02/16 Valsartan 160 mg PO DAILY 12/02/16 Allopurinol 100 mg PO DAILY 10/10/18 Hydralazine HCl 25 mg PO DAILY 10/10/18 Meclizine HCl [Antivert -] 1 tab PO PRN 10/10/18 Trulicity 0 units SQ DAILY 10/10/18 Family Disease History - Family Disease History Family Disease History: Diabetes: Father, Mother, Heart Disease: Father, Mother , Brother Review of Systems - Review of Systems Constitutional: reports: Malaise. denies: Fever Eyes: reports: No Symptoms HENT: reports: No Symptoms Neck: reports: No Symptoms Cardiovascular: reports: Edema Respiratory: reports: SOB on Exertion Gastrointestinal: reports: No Symptoms Genitourinary: reports: No Symptoms Musculoskeletal: reports: No Symptoms Integumentary: reports: Erythema, Wound Neurological: reports: No Symptoms Endocrine: reports: No Symptoms Hematology/Lymphatic: reports: No Symptoms Physical Exam Vital Signs: Vital Signs Temperature 98.3 F 10/15/18 06:00 Pulse Rate 80 10/15/18 06:00 Respiratory Rate 20 10/15/18 06:00 Blood Pressure 154/76 10/15/18 06:00 O2 Sat by Pulse Oximetry (%) 98 10/14/18 21:00 Constitutional: Yes: Calm Eyes: Yes: Conjunctiva Clear HENT: Yes: Atraumatic Neck: Yes: Supple Cardiovascular: Yes: S1, S2 Respiratory: Yes: CTA Bilaterally Gastrointestinal: Yes: Soft, Abdomen, Obese Renal/: Yes: WNL Musculoskeletal: Yes: WNL Edema: Yes Edema: LLE: 1+, RLE: 2+ Integumentary: Yes: Erythema, Venous Stasis Changes Neurological: Yes: Oriented Psychiatric: Yes: Oriented Labs: CBC, BMP 10/13/18 05:05 10/13/18 05:05 Laboratory Tests 10/10/18 10/10/18 10/10/18 14:37 15:40 17:02 Creatinine 1.5 H 1.5 H Urine Protein 3+ H Urine Blood 1+ H 10/11/18 10/12/18 10/13/18 06:19 06:15 05:05 Creatinine 1.9 H 2.0 H 2.1 H Urine Protein Urine Blood Imaging - Results Chest X-ray: Report Reviewed Problem List - Problems (1) Bacteremia Code(s): R78.81 - BACTEREMIA (2) Leg edema Code(s): R60.0 - LOCALIZED EDEMA (3) Sepsis Code(s): A41.9 - SEPSIS, UNSPECIFIED ORGANISM (4) ZHANG (acute kidney injury) Code(s): N17.9 - ACUTE KIDNEY FAILURE, UNSPECIFIED Assessment/Plan Current Medications Generic Name Dose Route Start Last Admin Trade Name Freq PRN Reason Stop Dose Admin Acetaminophen 650 mg 10/11/18 00:45 10/12/18 22:30 Tylenol - PO 650 mg Q6H PRN Administration PAIN OR FEVER Apixaban 5 mg 10/10/18 22:15 10/15/18 10:35 Eliquis - PO 5 mg BID [facility] Administration Atorvastatin Calcium 40 mg 10/11/18 22:00 10/14/18 22:19 Lipitor - PO 40 mg HS [facility] Administration Clopidogrel Bisulfate 75 mg 10/11/18 10:00 10/15/18 10:36 Plavix - PO 75 mg DAILY [facility] Administration Cyclosporine 100 mg 10/10/18 23:45 10/15/18 10:36 Sandimmune PO Not Given BID [facility] Gabapentin 300 mg 10/10/18 22:15 10/15/18 10:35 Neurontin - PO 300 mg BID [facility] Administration Ceftriaxone Sodium 2 gm/ 100 mls @ 100 mls/hr 10/11/18 15:00 10/15/18 10:35 Dextrose IVPB 100 mls/hr DAILY [facility] Administration Protocol Insulin Aspart 1 vial 10/14/18 11:00 10/15/18 06:47 Novolog Vial Sliding Scale - SQ Not Given ACHS [facility] Protocol Torsemide 50 mg 10/11/18 10:00 10/15/18 10:35 Demadex - PO 50 mg DAILY [facility] Administration Valsartan 160 mg 10/11/18 10:00 10/15/18 10:35 Diovan - PO 160 mg DAILY [facility] Administration Vitamin A/Vitamin D 1 applic 10/12/18 03:40 Vitamin A & D Top Oint - TP BID PRN WOUND CARE Microbiology 10/11/18 01:35 Urine For Antigen Detection Legionella Antigen - Final 10/11/18 01:35 Urine For Antigen Detection Streptococcus pneumoniae Antigen (M - Final 10/10/18 15:40 Urine - Urine Clean Catch Urine Culture - Final Diphtheroid/Corynebacterium 10/10/18 14:37 Blood - Peripheral Venous Blood Culture - Final Beta Hem Streptococcus Group C 10/12/18 06:15 Blood - Peripheral Venous Blood Culture - Preliminary NO GROWTH OBTAINED AFTER 72 HOURS, INCUBATION TO CONTINUE FOR 2 DAYS. 10/12/18 06:00 Blood - Peripheral Venous Blood Culture - Preliminary NO GROWTH OBTAINED AFTER 72 HOURS, INCUBATION TO CONTINUE FOR 2 DAYS. 10/10/18 14:37 Blood - Peripheral Venous Blood Culture - Preliminary NO GROWTH OBTAINED AFTER 96 HOURS, INCUBATION TO CONTINUE FOR 1 DAYS. Impression 1. CKD 2. ZHANG 3. cellulitis 4. morbid obesity 5. DM 6. PVD 7. Gout 8. Large cell granular leukemia/lymphoma 9. anemia 10. bacteremia 11. 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
[2018-10-15] MEDS ORDERED: hydrALAZINE HCL 10 MG TABLET PO PRN (14:09)
[2018-10-15] MEDS: ATORVASTATIN CA 40 MG TABLET (FP) PO SCH (21:45)
[2018-10-16] MEDS: INSULIN SLIDING SCALE (NOVOLOG) 1 VIAL SQ SCH ×4 (06:41→22:26)
[2018-10-16 06:51] LABS: BASO % 0.6 % (0-2.0); EOS % 7.8 % (0-4.5); HEMATOCRIT 27.5 % (35.4-49); HEMOGLOBIN 9.2 GM/dL (11.7-16.9); MCH 28.3 pg (25.7-33.7); MCHC 33.4 g/dl (32.0-35.9); MEAN CELL VOLUME 84.6 fl (80-96); MEAN PLT VOLUME 9.5 fl (7.5-11.1); MONO % 25.6 % (3.8-10.2); PLATELET COUNT 156 K/MM3 (134-434); RBC 3.25 M/mm3 (4.00-5.60); RDW 17.8 % (11.9-15.9); WHITE BLOOD COUNT 3.9 K/mm3 (4.0-10.0)
[2018-10-16 07:10] LABS: ALBUMIN 2.3 g/dl (3.4-5.0); BILIRUBIN,TOTAL 0.2 mg/dL (0.2-1); BLOOD UREA NITROGEN 80.9 mg/dL (7-18); CALCIUM 7.7 mg/dL (8.5-10.1); CREATININE 2.2 mg/dL (0.55-1.3); POTASSIUM 4.5 mmol/L (3.5-5.1)
--- NOTE | 2018-10-16 09:22 | PN ---
Progress Note, Physician Chief Complaint: AWAKE ALERT DENIES CHEST PAIN OR CHEST PAIN - Current Medication List Current Medications: Active Medications Acetaminophen (Tylenol -) 650 mg PO Q6H PRN PRN Reason: PAIN OR FEVER Last Admin: 10/12/18 22:30 Dose: 650 mg Apixaban (Eliquis -) 5 mg PO BID [facility] Last Admin: 10/15/18 21:45 Dose: 5 mg Atorvastatin Calcium (Lipitor -) 40 mg PO HS [facility] Last Admin: 10/15/18 21:45 Dose: 40 mg Clopidogrel Bisulfate (Plavix -) 75 mg PO DAILY [facility] Last Admin: 10/15/18 10:36 Dose: 75 mg Gabapentin (Neurontin -) 300 mg PO BID [facility] Last Admin: 10/15/18 21:45 Dose: 300 mg Hydralazine HCl (Apresoline -) 10 mg PO BID PRN PRN Reason: HYPERTENSION Ceftriaxone Sodium 2 gm/ (Dextrose) 100 mls @ 100 mls/hr IVPB DAILY [facility]; Protocol Last Admin: 10/15/18 10:35 Dose: 100 mls/hr Insulin Aspart (Novolog Vial Sliding Scale -) 1 vial SQ ACHS [facility]; Protocol Last Admin: 10/16/18 06:41 Dose: Not Given Vitamin A/Vitamin D (Vitamin A & D Top Oint -) 1 applic TP BID PRN PRN Reason: WOUND CARE - Objective Vital Signs: Vital Signs Temperature 98.3 F 10/16/18 06:59 Pulse Rate 85 10/16/18 06:59 Respiratory Rate 20 10/16/18 06:59 Blood Pressure 133/68 10/16/18 06:59 O2 Sat by Pulse Oximetry (%) 100 10/15/18 21:00 Constitutional: Yes: Mild Distress Eyes: Yes: WNL HENT: Yes: WNL Neck: Yes: WNL Cardiovascular: Yes: Pulse Irregular Respiratory: Yes: CTA Bilaterally Gastrointestinal: Yes: Soft, Abdomen, Obese Genitourinary: Yes: WNL Musculoskeletal: Yes: Other Edema: Yes Edema: LLE: 3+, RLE: 3+ Integumentary: Yes: Rash, Venous Stasis Changes Wound/Incision: Yes: Open to air Neurological: Yes: Pre-Existing Deficit ...Motor Strength: LLE, RLE Psychiatric: Yes: WNL Labs: CBC, BMP 10/16/18 05:05 10/16/18 05:05 Problem List - Problems (1) Bacteremia Code(s): R78.81 - BACTEREMIA (2) Chest pain on exertion Code(s): R07.9 - CHEST PAIN, UNSPECIFIED (3) Leg edema Code(s): R60.0 - LOCALIZED EDEMA (4) Morbid obesity with BMI of 50.0-59.9, adult Code(s): E66.01 - MORBID (SEVERE) OBESITY DUE TO EXCESS CALORIES; Z68.43 - BODY MASS INDEX (BMI) 50-59.9, ADULT (5) Sepsis Code(s): A41.9 - SEPSIS, UNSPECIFIED ORGANISM (6) Stasis dermatitis of both legs Code(s): I87.2 - VENOUS INSUFFICIENCY (CHRONIC) (PERIPHERAL) (7) Abscess of abdominal wall Code(s): L02.211 - CUTANEOUS ABSCESS OF ABDOMINAL WALL (8) Afib Code(s): I48.91 - UNSPECIFIED ATRIAL FIBRILLATION Qualifiers: Atrial fibrillation type: unspecified Qualified Code(s): I48.91 - Unspecified atrial fibrillation (9) CAD (coronary artery disease) Code(s): I25.10 - ATHSCL HEART DISEASE OF [place] CORONARY ARTERY W/O ANG PCTRS (10) HLD (hyperlipidemia) Code(s): E78.5 - HYPERLIPIDEMIA, UNSPECIFIED (11) HTN (hypertension) Code(s): I10 - ESSENTIAL (PRIMARY) HYPERTENSION Assessment/Plan IV ANTIBIOTICS CONTINUE ID F/U APPRECIATED WOUND CARE TO LEGS AND ABDOMINAL WALL CARDIAC CATH ONVE ABX COMPLETE
--- NOTE | 2018-10-16 10:21 | PN ---
Progress Note, Physician Chief Complaint: no CP no SOB Tele: AF controlled - Current Medication List Current Medications: Active Medications Acetaminophen (Tylenol -) 650 mg PO Q6H PRN PRN Reason: PAIN OR FEVER Last Admin: 10/12/18 22:30 Dose: 650 mg Apixaban (Eliquis -) 5 mg PO BID [facility] Last Admin: 10/15/18 21:45 Dose: 5 mg Atorvastatin Calcium (Lipitor -) 40 mg PO HS [facility] Last Admin: 10/15/18 21:45 Dose: 40 mg Clopidogrel Bisulfate (Plavix -) 75 mg PO DAILY [facility] Last Admin: 10/15/18 10:36 Dose: 75 mg Gabapentin (Neurontin -) 300 mg PO BID [facility] Last Admin: 10/15/18 21:45 Dose: 300 mg Hydralazine HCl (Apresoline -) 10 mg PO BID PRN PRN Reason: HYPERTENSION Ceftriaxone Sodium 2 gm/ (Dextrose) 100 mls @ 100 mls/hr IVPB DAILY [facility]; Protocol Last Admin: 10/15/18 10:35 Dose: 100 mls/hr Insulin Aspart (Novolog Vial Sliding Scale -) 1 vial SQ ACHS [facility]; Protocol Last Admin: 10/16/18 06:41 Dose: Not Given Vitamin A/Vitamin D (Vitamin A & D Top Oint -) 1 applic TP BID PRN PRN Reason: WOUND CARE - Objective Vital Signs: Vital Signs Temperature 98.2 F 10/16/18 10:03 Pulse Rate 75 10/16/18 10:03 Respiratory Rate 20 10/16/18 10:03 Blood Pressure 140/66 10/16/18 10:03 O2 Sat by Pulse Oximetry (%) 100 10/16/18 09:00 Constitutional: Yes: No Distress Eyes: Yes: Conjunctiva Clear Cardiovascular: Yes: Pulse Irregular Respiratory: Yes: CTA Bilaterally Gastrointestinal: Yes: Soft, Abdomen, Obese Edema: No Neurological: Yes: Alert, Oriented Labs: CBC, BMP 10/16/18 05:05 10/16/18 05:05 Assessment/Plan a/p: 63 m hx cad s/p pci (10/2012 darryn to pLCx and dLCx, residual 30-50% in mRCA, pLAD, mLAD), dchf, venous insuff, morbid obesity, ckd, htn, hld, dm, pafib, dvt , foot ulcers, leukemia here with sepsis. sepsis: -on abx per ID -+bld cx paroxysmal Afib/sinus gabriela -controlled -off bb since had episode of gabriela in past -cont home eliquis CAD: -no chest pain sxs, ecg w/o ischemic changes -trops mildly elevated with nl ck. Most likely due to sepsis, does not appear to be acs. Cont to trend. Cont tele. Cont home eliquis, plavix, statin, arb. -echo here unremarkable -was planned for outpt stress due to chronic leong but given +trops here will likely proceed with cardiac cath when acute infection issues resolved. Will review w/ ID HFpEF/venous insuff/edema -stable, cont home torsemide HTN -cont home arb gopal on ckd -likely 2/2 sepsis, monitor cr
[2018-10-16 10:24] LABS: ANISOCYTOSIS 1+; MACROCYTOSIS 0; PLATELET ESTIMATE DECREASED
[2018-10-16] MEDS ORDERED: DEXTROSE 5%-WATER 100 ML IVPB ONE (10:24)
[2018-10-16] MEDS: CEFTRIAXONE 2 GM in DEXTROSE 5%-WATER 100 ML IVPB SCH (10:44)
[2018-10-16] MEDS: GABAPENTIN 300 MG CAPSULE (FP) PO SCH ×2 (10:45→22:25)
[2018-10-16] MEDS: APIXABAN 5 MG TABLET PO SCH ×2 (10:45→22:25)
[2018-10-16] MEDS: CLOPIDOGREL BISULFATE 75 MG TABLET (FP) PO SCH (10:45)
[2018-10-16 12:55] LABS: URINE APPEARANCE Clear; URINE BILIRUBIN Negative (NEGATIVE); URINE COLOR Yellow; URINE GLUCOSE (UA) Negative (NEGATIVE); URINE KETONE Negative (NEGATIVE); URINE LEUK ESTERASE Negative (NEGATIVE); URINE NITRITE Negative (NEGATIVE); URINE PROTEIN 1+ (NEGATIVE); URINE UROBILINOGEN 0.2 mg/dL (0.2-1.0)
--- NOTE | 2018-10-16 13:47 | PN ---
Progress Note, Physician History of Present Illness: AWAKE,ALERT SUPINE IN BED FEELING BETTER TEMPS DOWN AFEBRILE REPEAT BC (-) ECHO NO VEGETATIONS - Current Medication List Current Medications: Active Medications Acetaminophen (Tylenol -) 650 mg PO Q6H PRN PRN Reason: PAIN OR FEVER Last Admin: 10/12/18 22:30 Dose: 650 mg Apixaban (Eliquis -) 5 mg PO BID [facility] Last Admin: 10/16/18 10:45 Dose: 5 mg Atorvastatin Calcium (Lipitor -) 40 mg PO HS [facility] Last Admin: 10/15/18 21:45 Dose: 40 mg Clopidogrel Bisulfate (Plavix -) 75 mg PO DAILY [facility] Last Admin: 10/16/18 10:45 Dose: 75 mg Gabapentin (Neurontin -) 300 mg PO BID [facility] Last Admin: 10/16/18 10:45 Dose: 300 mg Hydralazine HCl (Apresoline -) 10 mg PO BID PRN PRN Reason: HYPERTENSION Ceftriaxone Sodium 2 gm/ (Dextrose) 100 mls @ 100 mls/hr IVPB DAILY [facility]; Protocol Last Admin: 10/16/18 10:44 Dose: 100 mls/hr Insulin Aspart (Novolog Vial Sliding Scale -) 1 vial SQ ACHS [facility]; Protocol Last Admin: 10/16/18 11:36 Dose: Not Given Vitamin A/Vitamin D (Vitamin A & D Top Oint -) 1 applic TP BID PRN PRN Reason: WOUND CARE - Objective Vital Signs: Vital Signs Temperature 98.2 F 10/16/18 10:03 Pulse Rate 75 10/16/18 10:03 Respiratory Rate 20 10/16/18 10:03 Blood Pressure 140/66 10/16/18 10:03 O2 Sat by Pulse Oximetry (%) 100 10/16/18 09:00 Constitutional: Yes: Obese Cardiovascular: Yes: Regular Rate and Rhythm, S1, S2 Respiratory: Yes: CTA Bilaterally Gastrointestinal: Yes: Normal Bowel Sounds, Soft. No: Tenderness Edema: Yes Edema: LLE: 2+, RLE: 2+ Integumentary: Yes: Venous Stasis Changes, Other (DECREASED WARMTH L LE; ACHILLES ABRASION HEALED) Labs: CBC, BMP 10/16/18 05:05 10/16/18 05:05 Assessment/Plan GRP C STREP BACTEREMIA, PROBABLE SKIN SOURCE CELLULITIS L LE IMPROVED CAD REPEAT BC NO GROWTH ECHO NO VEGETATIONS CONTINUE CEFTRIAXONE DAY # 7 ANTIBIOTICS PT NEEDS NON-EMERGENT CARDIAC CATH DISCUSSED WITH CARDIOLOGY HOPE TO COMPLETE 10D COURSE OF ANTIBIOTICS PRIOR TO CATH IF POSSIBLE
--- NOTE | 2018-10-16 13:50 | PN ---
Progress Note, Physician History of Present Illness: Pt seen and examined at bedside. He is awake and alert. He denies shortness of breath. He has edema but feels that it is better than normal. - Current Medication List Current Medications: Active Medications Acetaminophen (Tylenol -) 650 mg PO Q6H PRN PRN Reason: PAIN OR FEVER Last Admin: 10/12/18 22:30 Dose: 650 mg Apixaban (Eliquis -) 5 mg PO BID [facility] Last Admin: 10/16/18 10:45 Dose: 5 mg Atorvastatin Calcium (Lipitor -) 40 mg PO HS [facility] Last Admin: 10/15/18 21:45 Dose: 40 mg Clopidogrel Bisulfate (Plavix -) 75 mg PO DAILY [facility] Last Admin: 10/16/18 10:45 Dose: 75 mg Gabapentin (Neurontin -) 300 mg PO BID [facility] Last Admin: 10/16/18 10:45 Dose: 300 mg Hydralazine HCl (Apresoline -) 10 mg PO BID PRN PRN Reason: HYPERTENSION Ceftriaxone Sodium 2 gm/ (Dextrose) 100 mls @ 100 mls/hr IVPB DAILY [facility]; Protocol Last Admin: 10/16/18 10:44 Dose: 100 mls/hr Insulin Aspart (Novolog Vial Sliding Scale -) 1 vial SQ ACHS [facility]; Protocol Last Admin: 10/16/18 11:36 Dose: Not Given Vitamin A/Vitamin D (Vitamin A & D Top Oint -) 1 applic TP BID PRN PRN Reason: WOUND CARE - Objective Vital Signs: Vital Signs Temperature 98.2 F 10/16/18 10:03 Pulse Rate 75 10/16/18 10:03 Respiratory Rate 20 10/16/18 10:03 Blood Pressure 140/66 10/16/18 10:03 O2 Sat by Pulse Oximetry (%) 100 10/16/18 09:00 Constitutional: Yes: Calm Eyes: Yes: Conjunctiva Clear HENT: Yes: Atraumatic Neck: Yes: Supple Cardiovascular: Yes: S1, S2 Respiratory: Yes: CTA Bilaterally Gastrointestinal: Yes: Soft, Abdomen, Obese Genitourinary: Yes: WNL Musculoskeletal: Yes: WNL Edema: Yes Edema: LLE: 2+, RLE: 2+ Integumentary: Yes: Venous Stasis Changes Neurological: Yes: Oriented Psychiatric: Yes: Oriented Labs: CBC, BMP 10/16/18 05:05 10/16/18 05:05 Problem List - Problems (1) Bacteremia Code(s): R78.81 - BACTEREMIA (2) Leg edema Code(s): R60.0 - LOCALIZED EDEMA (3) Sepsis Code(s): A41.9 - SEPSIS, UNSPECIFIED ORGANISM (4) ZHANG (acute kidney injury) Code(s): N17.9 - ACUTE KIDNEY FAILURE, UNSPECIFIED Assessment/Plan Current Medications Generic Name Dose Route Start Last Admin Trade Name Freq PRN Reason Stop Dose Admin Acetaminophen 650 mg 10/11/18 00:45 10/12/18 22:30 Tylenol - PO 650 mg Q6H PRN Administration PAIN OR FEVER Apixaban 5 mg 10/10/18 22:15 10/16/18 10:45 Eliquis - PO 5 mg BID JENNY Administration Atorvastatin Calcium 40 mg 10/11/18 22:00 10/15/18 21:45 Lipitor - PO 40 mg HS JENNY Administration Clopidogrel Bisulfate 75 mg 10/11/18 10:00 10/16/18 10:45 Plavix - PO 75 mg DAILY JENNY Administration Gabapentin 300 mg 10/10/18 22:15 10/16/18 10:45 Neurontin - PO 300 mg BID JENNY Administration Hydralazine HCl 10 mg 10/15/18 14:09 Apresoline - PO BID PRN HYPERTENSION Ceftriaxone Sodium 2 gm/ 100 mls @ 100 mls/hr 10/11/18 15:00 10/16/18 10:44 Dextrose IVPB 100 mls/hr DAILY JENNY Administration Protocol Insulin Aspart 1 vial 10/14/18 11:00 10/16/18 11:36 Novolog Vial Sliding Scale - SQ Not Given ACHS JENNY Protocol Vitamin A/Vitamin D 1 applic 10/12/18 03:40 Vitamin A & D Top Oint - TP BID PRN WOUND CARE Impression 1. CKD 2. ZHANG 3. cellulitis 4. morbid obesity 5. DM 6. PVD 7. Gout 8. Large cell granular leukemia/lymphoma 9. anemia 10. bacteremia 11. leukopenia Plan - repeat labs in am - cont to monitor renal function - evaluate for diuretics tomorrow - keep diovan on hold - follow urine eos - follow cultures - hold cyclosporine as he has infection and leukopenia - heme onc follow up
[2018-10-16 15:12] LABS: EPI CELLS 0 /HPF (0-5/HPF); HYALINE CASTS 0.3 /lpf (0-8); URINE BACTERIA 0.2 /hpf (NEGATIVE); URINE RBC 0.3 /hpf (0-4); URINE WBC 0 /hpf (0-5)
--- NOTE | 2018-10-16 21:00 | PN ---
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 BID when infection controlled pending renal status treatment of infection per ID acute renal failure improving probable cardiac cath after infection resolves On eliquis for afib. on plavix
[2018-10-16] MEDS: ATORVASTATIN CA 40 MG TABLET (FP) PO SCH (22:25)
[2018-10-17] MEDS: INSULIN SLIDING SCALE (NOVOLOG) 1 VIAL SQ SCH ×4 (06:59→23:02)
[2018-10-17 07:14] LABS: BASO % 0.9 % (0-2.0); HEMATOCRIT 26.6 % (35.4-49); HEMOGLOBIN 8.8 GM/dL (11.7-16.9); LYMPH % 39.7 % (8-40); MCH 28.1 pg (25.7-33.7); MCHC 33.2 g/dl (32.0-35.9); MEAN CELL VOLUME 84.7 fl (80-96); MEAN PLT VOLUME 8.5 fl (7.5-11.1); MONO % 23.2 % (3.8-10.2); NEUT % 30.2 % (42.8-82.8); PLATELET COUNT 153 K/MM3 (134-434); RBC 3.14 M/mm3 (4.00-5.60); RDW 17.9 % (11.9-15.9); WHITE BLOOD COUNT 3.9 K/mm3 (4.0-10.0)
[2018-10-17 07:29] LABS: CALCIUM 7.2 mg/dL (8.5-10.1); MAGNESIUM 1.9 mg/dL (1.8-2.4); POTASSIUM 4.5 mmol/L (3.5-5.1)
[2018-10-17] MEDS ORDERED: DEXTROSE 5%-WATER 100 ML IVPB ONE (09:39)
[2018-10-17] MEDS: CEFTRIAXONE 2 GM in DEXTROSE 5%-WATER 100 ML IVPB SCH (09:41)
[2018-10-17] MEDS: GABAPENTIN 300 MG CAPSULE (FP) PO SCH ×2 (09:42→22:20)
[2018-10-17] MEDS: CLOPIDOGREL BISULFATE 75 MG TABLET (FP) PO SCH (09:42)
[2018-10-17] MEDS: APIXABAN 5 MG TABLET PO SCH ×2 (09:42→22:19)
--- NOTE | 2018-10-17 10:25 | PN ---
Progress Note, Physician Chief Complaint: sob, chills History of Present Illness: states sob on stairs ongoing for several wks--no sob here states he was having nonexertional, persistent upper chest/throat pain when saw lindsay last--no pain for 3 wks or so including on DOA or here no palps leg swelling persists no cigs - Current Medication List Current Medications: Active Medications Acetaminophen (Tylenol -) 650 mg PO Q6H PRN PRN Reason: PAIN OR FEVER Last Admin: 10/12/18 22:30 Dose: 650 mg Apixaban (Eliquis -) 5 mg PO BID [facility] Last Admin: 10/17/18 09:42 Dose: 5 mg Atorvastatin Calcium (Lipitor -) 40 mg PO HS [facility] Last Admin: 10/16/18 22:25 Dose: 40 mg Clopidogrel Bisulfate (Plavix -) 75 mg PO DAILY [facility] Last Admin: 10/17/18 09:42 Dose: 75 mg Gabapentin (Neurontin -) 300 mg PO BID [facility] Last Admin: 10/17/18 09:42 Dose: 300 mg Hydralazine HCl (Apresoline -) 10 mg PO BID PRN PRN Reason: HYPERTENSION Ceftriaxone Sodium 2 gm/ (Dextrose) 100 mls @ 100 mls/hr IVPB DAILY [facility]; Protocol Last Admin: 10/17/18 09:41 Dose: 100 mls/hr Insulin Aspart (Novolog Vial Sliding Scale -) 1 vial SQ ACHS [facility]; Protocol Last Admin: 10/17/18 06:59 Dose: Not Given Vitamin A/Vitamin D (Vitamin A & D Top Oint -) 1 applic TP BID PRN PRN Reason: WOUND CARE - Objective Vital Signs: Vital Signs Temperature 97.9 F 10/17/18 02:20 Pulse Rate 75 10/17/18 06:00 Respiratory Rate 20 10/17/18 06:00 Blood Pressure 129/65 10/17/18 06:00 O2 Sat by Pulse Oximetry (%) 97 10/16/18 21:00 Constitutional: Yes: No Distress, Calm, Obese Eyes: No: Sclera Icterus HENT: No: Nasal Congestion Cardiovascular: Yes: Regular Rate and Rhythm, S1, S2, Other (PMI non diplaced). No: JVD, Gallop, Murmur Respiratory: Yes: CTA Bilaterally. No: Accessory Muscle Use, Rales, Wheezes Gastrointestinal: Yes: Normal Bowel Sounds, Soft. No: Tenderness Musculoskeletal: Yes: Other (No kyphosis) Extremities: No: Cold, Cyanosis Edema: Yes (tense LEs) Integumentary: No: Jaundice Neurological: Yes: Alert, Oriented (x3) Psychiatric: No: Agitated Labs: CBC, BMP 10/17/18 05:20 10/17/18 05:20 Assessment/Plan tele: NSR with marked sinus arrhythmia and pauses at times likely during periods of sinus arrhytmi (poor baseline, p waves likely present) Assessment/Plan a/p: 63 m hx cad s/p pci (10/2012 darryn to pLCx and dLCx, residual 30-50% in mRCA, pLAD, mLAD), dchf, venous insuff, morbid obesity, ckd, htn, hld, dm, pafib, dvt , foot ulcers, leukemia here with sepsis. strep bacteremia (group C), felt likely sec to cellulitis per ID: -on abx per ID -2nd set BCx's no growth to date paroxysmal Afib/sinus gabriela -controlled, off bb since had episode of gabriela in past -sinus here with sinus arrhythmia, pauses (< 3 sec) likely on this basis--cont tele (? hi resting vagal tone, obese--YUVAL?) -cont home eliquis CAD: -no chest pain sxs, ecg w/o ischemic changes -troponin moderately elevated on admit (2.9)--trended down. -most likely due to sepsis, does not appear to be acs, no clinical picture of acute coronary ischemia. -ont home eliquis, plavix, statin -echo here unremarkable -was planned for outpt stress due to chronic leong , however elevated tropnins here, hence invasive workup with cath being considered -per d/w Dr. Reyes ID, recommendation is to wait for at least 10 days of abx and to assure that repeat cultures remain negative, as cath is non-urgent in light of ongoing high risk ischemic clinical markers--? Friday -will also need to clarify prognosis of his leukemia/lymphoma with Onc on Friday (Twila), which may impact on decision (PLTs normal on trend here) -? will need GIB eval prior to committing to prolonged DAPT in light of anemia and iron indices below--will review outpatient chart friday for recent counts HFpEF/venous insuff/edema -stable, cont home torsemide HTN -bp controlled -home ARB on hold sec to ZHANG -observe bp trend zhang on ckd -likely 2/2 sepsis, monitor cr (recent baseline data not available) anemia: -hgb stable 8s-9s here -no recent baseline values available -? sec to CKD -iron low, iron sat low-nl range, ferritin normal
--- NOTE | 2018-10-17 10:35 | PN ---
Progress Note (short form) - Note Progress Note: RENAL Pt awake and alert comfortable lying flat Last Vital Signs Temp Pulse Resp BP Pulse Ox 97.9 F 75 20 129/65 97 10/17/18 02:20 10/17/18 06:00 10/17/18 06:00 10/17/18 06:00 10/16/18 21:00 lungs clear cvs s1s2 rr abd soft ext trace edema neuro a+ox3 CBC, BMP 10/17/18 05:20 10/17/18 05:20 Current Medications Generic Name Dose Route Start Last Admin Trade Name Freq PRN Reason Stop Dose Admin Acetaminophen 650 mg 10/11/18 00:45 10/12/18 22:30 Tylenol - PO 650 mg Q6H PRN Administration PAIN OR FEVER Apixaban 5 mg 10/10/18 22:15 10/17/18 09:42 Eliquis - PO 5 mg BID JENNY Administration Atorvastatin Calcium 40 mg 10/11/18 22:00 10/16/18 22:25 Lipitor - PO 40 mg HS JENNY Administration Clopidogrel Bisulfate 75 mg 10/11/18 10:00 10/17/18 09:42 Plavix - PO 75 mg DAILY JNENY Administration Gabapentin 300 mg 10/10/18 22:15 10/17/18 09:42 Neurontin - PO 300 mg BID JENNY Administration Hydralazine HCl 10 mg 10/15/18 14:09 Apresoline - PO BID PRN HYPERTENSION Ceftriaxone Sodium 2 gm/ 100 mls @ 100 mls/hr 10/11/18 15:00 10/17/18 09:41 Dextrose IVPB 100 mls/hr DAILY JENNY Administration Protocol Insulin Aspart 1 vial 10/14/18 11:00 10/17/18 06:59 Novolog Vial Sliding Scale - SQ Not Given ACHS JENNY Protocol Vitamin A/Vitamin D 1 applic 10/12/18 03:40 Vitamin A & D Top Oint - TP BID PRN WOUND CARE Impression 1. CKD 2. ZHANG 3. cellulitis 4. morbid obesity 5. DM 6. PVD 7. Gout 8. Large cell granular leukemia/lymphoma 9. anemia worsening while on apixaban and plavix- would rule out GI bleeding 10. bacteremia 11. 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
[2018-10-17 10:38] LABS: ANISOCYTOSIS 1+; MACROCYTOSIS 1+; OVALOCYTE 1+
[2018-10-17] MEDS: COLCHICINE 0.6 MG CAP PO SCH (11:54)
[2018-10-17 12:10] LABS: PLATELET ESTIMATE ADEQUATE
--- NOTE | 2018-10-17 14:35 | PN ---
Progress Note, Physician - Current Medication List Current Medications: Active Medications Acetaminophen (Tylenol -) 650 mg PO Q6H PRN PRN Reason: PAIN OR FEVER Last Admin: 10/12/18 22:30 Dose: 650 mg Apixaban (Eliquis -) 5 mg PO BID [facility] Last Admin: 10/17/18 09:42 Dose: 5 mg Atorvastatin Calcium (Lipitor -) 40 mg PO HS [facility] Last Admin: 10/16/18 22:25 Dose: 40 mg Clopidogrel Bisulfate (Plavix -) 75 mg PO DAILY [facility] Last Admin: 10/17/18 09:42 Dose: 75 mg Colchicine (Colcrys) 0.6 mg PO DAILY [facility] Last Admin: 10/17/18 11:54 Dose: 0.6 mg Gabapentin (Neurontin -) 300 mg PO BID [facility] Last Admin: 10/17/18 09:42 Dose: 300 mg Hydralazine HCl (Apresoline -) 10 mg PO BID PRN PRN Reason: HYPERTENSION Ceftriaxone Sodium 2 gm/ (Dextrose) 100 mls @ 100 mls/hr IVPB DAILY [facility]; Protocol Last Admin: 10/17/18 09:41 Dose: 100 mls/hr Insulin Aspart (Novolog Vial Sliding Scale -) 1 vial SQ ACHS [facility]; Protocol Last Admin: 10/17/18 11:55 Dose: Not Given Vitamin A/Vitamin D (Vitamin A & D Top Oint -) 1 applic TP BID PRN PRN Reason: WOUND CARE - Objective Vital Signs: Vital Signs Temperature 97.9 F 10/17/18 02:20 Pulse Rate 75 10/17/18 06:00 Respiratory Rate 20 10/17/18 09:00 Blood Pressure 129/65 10/17/18 06:00 O2 Sat by Pulse Oximetry (%) 98 10/17/18 09:00 Cardiovascular: Yes: S1, S2 Respiratory: Yes: Regular, CTA Bilaterally Gastrointestinal: Yes: Normal Bowel Sounds, Soft Musculoskeletal: Yes: Joint Stiffness (left wrist), Joint Swelling Labs: CBC, BMP 10/17/18 05:20 10/17/18 05:20 Assessment/Plan - Problems (1) Sepsis Assessment/Plan: Likely secondary to CAP vs Cellulitis Chest Xray report super imposed basilar infiltrate cannot be excluded Vancomycin and Zosyn given in ED, will continue renal dosing Appreciate ID consult--follow up noted day 09/19 abx Microbiology 10/12/18 06:00 Blood - Peripheral Venous Blood Culture - Preliminary NO GROWTH OBTAINED AFTER 24 HOURS, INCUBATION TO CONTINUE FOR 4 DAYS. 10/12/18 06:15 Blood - Peripheral Venous Blood Culture - Preliminary NO GROWTH OBTAINED AFTER 24 HOURS, INCUBATION TO CONTINUE FOR 4 DAYS. 10/10/18 14:37 Blood - Peripheral Venous Blood Culture - Preliminary NO GROWTH OBTAINED AFTER 48 HOURS, INCUBATION TO CONTINUE FOR 3 DAYS. 10/10/18 14:37 Blood - Peripheral Venous Blood Culture - Final Beta Hem Streptococcus Group C 10/10/18 15:40 Urine - Urine Clean Catch Urine Culture - Final Diphtheroid/Corynebacterium 10/11/18 01:35 Urine For Antigen Detection Legionella Antigen - Final 10/11/18 01:35 Urine For Antigen Detection Streptococcus pneumoniae Antigen (M - Final Code(s): A41.9 - SEPSIS, UNSPECIFIED ORGANISM (2) Pneumonia Assessment/Plan: See above Code(s): J18.9 - PNEUMONIA, UNSPECIFIED ORGANISM Qualifiers: Pneumonia type: due to unspecified organism Laterality: unspecified laterality Lung location: unspecified part of lung Qualified Code(s): J18.9 - Pneumonia, unspecified organism (3) Chest pain on exertion Assessment/Plan: r/o ACS Cardiac monitoring Serial Enzymes elevated Appreciate Cardiology consult EKG- NSR no ST or TWI noted, change compared to prior study Tachycardia Code(s): R07.9 - CHEST PAIN, UNSPECIFIED (4) Morbid obesity with BMI of 50.0-59.9, adult Assessment/Plan: Carb Control Diet Code(s): E66.01 - MORBID (SEVERE) OBESITY DUE TO EXCESS CALORIES; Z68.43 - BODY MASS INDEX (BMI) 50-59.9, ADULT (5) Afib Assessment/Plan: stable [id number] EKG- reviewed Continue Eliquis Code(s): I48.91 - UNSPECIFIED ATRIAL FIBRILLATION Qualifiers: Atrial fibrillation type: unspecified Qualified Code(s): I48.91 - Unspecified atrial fibrillation (6) CAD (coronary artery disease) Assessment/Plan: s/p Stents Continue home meds EKG- reviewed recurrent cp--cardio follow up--for cath Laboratory Tests 10/12/18 10/12/18 06:15 20:42 Troponin I 0.91 H* 0.55 H Code(s): I25.10 - ATHSCL HEART DISEASE OF [place] CORONARY ARTERY W/O ANG PCTRS (7) CHF (congestive heart failure) Assessment/Plan: Chest Xray- congestive changes BNP- pending Continue Torsemide Strict INOs Daily weights Appreciate Cardiology consult Code(s): I50.9 - HEART FAILURE, UNSPECIFIED Qualifiers: Heart failure chronicity: chronic congestive heart failure (8) HTN (hypertension) Assessment/Plan: sub optimal Monitor BP Continue Valsartan Hold Hydralazine secondary to Hyperkalemia Monitor renal function Code(s): I10 - ESSENTIAL (PRIMARY) HYPERTENSION (9) CKD (chronic kidney disease) Assessment/Plan: Cr 1.5 at baseline Monitor BMP Avoid Nephrotoxic drugs Code(s): N18.9 - CHRONIC KIDNEY DISEASE, UNSPECIFIED (10) Diabetes Assessment/Plan: Stable BGMs ISS Code(s): E11.9 - TYPE 2 DIABETES MELLITUS WITHOUT COMPLICATIONS Qualifiers: Diabetes mellitus type: type 2 Diabetes mellitus intermediate frame tender insulin use: with custodial use Diabetes mellitus complication status: without complication Qualified Code(s): E11.9 - Type 2 diabetes mellitus without complications; Z79.4 - extermination inspector (current) use of insulin (11) HLD (hyperlipidemia) Assessment/Plan: Stable Continue Lipitor Monitor LFTs Code(s): E78.5 - HYPERLIPIDEMIA, UNSPECIFIED (12) Gout Assessment/Plan: left wrist falir colcrys Code(s): M10.9 - GOUT, UNSPECIFIED Qualifiers: Gout site: foot (13) Leukemia Assessment/Plan: Appreciate Oncology consult (14) PAD (peripheral artery disease) Assessment/Plan: Appreciate Vascular consult Code(s): I73.9 - PERIPHERAL VASCULAR DISEASE, UNSPECIFIED (15) Venous (peripheral) insufficiency Assessment/Plan: See above vascular consult Code(s): I87.2 - VENOUS INSUFFICIENCY (CHRONIC) (PERIPHERAL)
[2018-10-17] MEDS: ALLOPURINOL 100 MG TABLET (FP) PO SCH (16:45)
[2018-10-17] MEDS: ACETAMINOPHEN 325 MG TABLET (FP) PO PRN ×2 (16:45→22:20)
[2018-10-17] MEDS: ATORVASTATIN CA 40 MG TABLET (FP) PO SCH (22:20)
[2018-10-18] MEDS: ACETAMINOPHEN 325 MG TABLET (FP) PO PRN (06:18)
[2018-10-18] MEDS: INSULIN SLIDING SCALE (NOVOLOG) 1 VIAL SQ SCH ×4 (06:18→22:22)
[2018-10-18] MEDS ORDERED: DEXTROSE 5%-WATER 100 ML IVPB ONE (09:35)
[2018-10-18] MEDS: CLOPIDOGREL BISULFATE 75 MG TABLET (FP) PO SCH (09:38)
[2018-10-18] MEDS: GABAPENTIN 300 MG CAPSULE (FP) PO SCH ×2 (09:38→22:21)
[2018-10-18] MEDS: APIXABAN 5 MG TABLET PO SCH ×2 (09:38→22:22)
[2018-10-18] MEDS: ALLOPURINOL 100 MG TABLET (FP) PO SCH (09:38)
[2018-10-18] MEDS: COLCHICINE 0.6 MG CAP PO SCH (09:38)
[2018-10-18] MEDS: CEFTRIAXONE 2 GM in DEXTROSE 5%-WATER 100 ML IVPB SCH (09:38)
--- NOTE | 2018-10-18 10:38 | PN ---
Progress Note, Physician Chief Complaint: chills, sob History of Present Illness: no sob (not ambulating) no cp leg swelling stable no palpitations no cigs - Current Medication List Current Medications: Active Medications Acetaminophen (Tylenol -) 650 mg PO Q6H PRN PRN Reason: PAIN OR FEVER Last Admin: 10/18/18 06:18 Dose: 650 mg Allopurinol (Zyloprim -) 100 mg PO DAILY [facility] Last Admin: 10/18/18 09:38 Dose: 100 mg Apixaban (Eliquis -) 5 mg PO BID [facility] Last Admin: 10/18/18 09:38 Dose: 5 mg Atorvastatin Calcium (Lipitor -) 40 mg PO HS [facility] Last Admin: 10/17/18 22:20 Dose: 40 mg Clopidogrel Bisulfate (Plavix -) 75 mg PO DAILY [facility] Last Admin: 10/18/18 09:38 Dose: 75 mg Colchicine (Colcrys) 0.6 mg PO DAILY [facility] Last Admin: 10/18/18 09:38 Dose: 0.6 mg Gabapentin (Neurontin -) 300 mg PO BID [facility] Last Admin: 10/18/18 09:38 Dose: 300 mg Hydralazine HCl (Apresoline -) 10 mg PO BID PRN PRN Reason: HYPERTENSION Ceftriaxone Sodium 2 gm/ (Dextrose) 100 mls @ 100 mls/hr IVPB DAILY [facility]; Protocol Last Admin: 10/18/18 09:38 Dose: 100 mls/hr Insulin Aspart (Novolog Vial Sliding Scale -) 1 vial SQ ACHS [facility]; Protocol Last Admin: 10/18/18 06:18 Dose: Not Given Vitamin A/Vitamin D (Vitamin A & D Top Oint -) 1 applic TP BID PRN PRN Reason: WOUND CARE - Objective Vital Signs: Vital Signs Temperature 97.6 F 10/18/18 06:00 Pulse Rate 53 L 10/18/18 06:00 Respiratory Rate 20 10/18/18 06:00 Blood Pressure 142/61 10/18/18 06:00 O2 Sat by Pulse Oximetry (%) 99 10/17/18 21:00 Constitutional: Yes: No Distress, Calm, Obese Eyes: No: Sclera Icterus HENT: No: Nasal Congestion Cardiovascular: Yes: Regular Rate and Rhythm, S1, S2, Other (PMI non diplaced). No: JVD (tds habitus), Gallop, Murmur Respiratory: Yes: CTA Bilaterally. No: Accessory Muscle Use, Rales, Wheezes Gastrointestinal: Yes: Normal Bowel Sounds, Soft. No: Tenderness Musculoskeletal: Yes: Other (No kyphosis) Extremities: No: Cool, Cyanosis Edema: Yes (mlid nonpitting) Integumentary: No: Jaundice Neurological: Yes: Alert, Oriented (x3) Psychiatric: No: Agitated Labs: CBC, BMP 10/17/18 05:20 10/17/18 05:20 Assessment/Plan tele: NSR with marked sinus arrhythmia and pauses < 3 sec in this setting Assessment/Plan a/p: 63 m hx cad s/p pci (10/2012 darryn to pLCx and dLCx, residual 30-50% in mRCA, pLAD, mLAD), dchf, venous insuff, morbid obesity, ckd, htn, hld, dm, pafib, dvt , foot ulcers, leukemia here with sepsis. strep bacteremia (group C), felt likely sec to cellulitis per ID: -on abx per ID -2nd set BCx's no growth to date paroxysmal Afib/sinus gabriela -controlled, off bb since had episode of gabriela in past -sinus here with sinus arrhythmia, pauses (< 3 sec) likely on this basis--cont tele (? hi resting vagal tone, obese--YUVAL?) -cont home eliquis CAD: -no chest pain sxs, ecg w/o ischemic changes -troponin moderately elevated on admit (2.9)--trended down. -most likely due to sepsis, does not appear to be acs, no clinical picture of acute coronary ischemia. -ont home eliquis, plavix, statin -echo here unremarkable -was planned for outpt stress due to chronic leong, however elevated tropnins here , hence invasive workup with cath being considered. -mult comorbidities weighing on risk/benefit of cath, as below: -ZHANG here, creat remains well above prior baseline--ARB, cyclosporine held 10/17 per renal--trend creatinine -per d/w Dr. Reyes ID, recommendation is to wait for at least 10 days of abx and to assure that repeat cultures remain negative, as cath is non-urgent in light of ongoing high risk ischemic clinical markers -will also need to clarify prognosis of his leukemia/lymphoma with Onc on Friday (Twila), which may impact on decision (PLTs normal on trend here) -anemia here, 2 grams below prior baseline (10.8 on 06/28 office labs)--? sec to his heme malignancy, ? will need GIB eval prior to committing to prolonged DAPT in light of iron indices. will ask heme for input tomorrow. HFpEF/venous insuff/edema -holding torsemide sec to ZHANG -euvolemic or close, well-compensated -hi suspicion YUVAL--rec outpt PSG HTN -bp controlled -home ARB on hold sec to ZHANG -observe bp trend zhang on ckd -baseline 1.3 (06/28) -likely 2/2 sepsis, monitor cr (recent baseline data not available) anemia: -hgb stable 8s-9s here -no recent baseline values available -? sec to CKD -iron low, iron sat low-nl range, ferritin normal -will d/w heme, as above
--- NOTE | 2018-10-18 11:35 | PN ---
Progress Note, Physician - Current Medication List Current Medications: Active Medications Acetaminophen (Tylenol -) 650 mg PO Q6H PRN PRN Reason: PAIN OR FEVER Last Admin: 10/18/18 06:18 Dose: 650 mg Allopurinol (Zyloprim -) 100 mg PO DAILY [facility] Last Admin: 10/18/18 09:38 Dose: 100 mg Apixaban (Eliquis -) 5 mg PO BID [facility] Last Admin: 10/18/18 09:38 Dose: 5 mg Atorvastatin Calcium (Lipitor -) 40 mg PO HS [facility] Last Admin: 10/17/18 22:20 Dose: 40 mg Clopidogrel Bisulfate (Plavix -) 75 mg PO DAILY [facility] Last Admin: 10/18/18 09:38 Dose: 75 mg Colchicine (Colcrys) 0.6 mg PO DAILY [facility] Last Admin: 10/18/18 09:38 Dose: 0.6 mg Gabapentin (Neurontin -) 300 mg PO BID [facility] Last Admin: 10/18/18 09:38 Dose: 300 mg Hydralazine HCl (Apresoline -) 10 mg PO BID PRN PRN Reason: HYPERTENSION Ceftriaxone Sodium 2 gm/ (Dextrose) 100 mls @ 100 mls/hr IVPB DAILY [facility]; Protocol Last Admin: 10/18/18 09:38 Dose: 100 mls/hr Insulin Aspart (Novolog Vial Sliding Scale -) 1 vial SQ ACHS [facility]; Protocol Last Admin: 10/18/18 06:18 Dose: Not Given Vitamin A/Vitamin D (Vitamin A & D Top Oint -) 1 applic TP BID PRN PRN Reason: WOUND CARE - Objective Vital Signs: Vital Signs Temperature 97.6 F 10/18/18 06:00 Pulse Rate 53 L 10/18/18 06:00 Respiratory Rate 20 10/18/18 09:00 Blood Pressure 142/61 10/18/18 06:00 O2 Sat by Pulse Oximetry (%) 98 10/18/18 09:00 Cardiovascular: Yes: Regular Rate and Rhythm Respiratory: Yes: Regular, CTA Bilaterally Gastrointestinal: Yes: Normal Bowel Sounds, Soft Labs: CBC, BMP 10/17/18 05:20 10/17/18 05:20 Assessment/Plan - Problems (1) Sepsis Assessment/Plan: Likely secondary to CAP vs Cellulitis Chest Xray report super imposed basilar infiltrate cannot be excluded Vancomycin and Zosyn given in ED, will continue renal dosing Appreciate ID consult--follow up noted day 10/20 abx Microbiology 10/12/18 06:00 Blood - Peripheral Venous Blood Culture - Preliminary NO GROWTH OBTAINED AFTER 24 HOURS, INCUBATION TO CONTINUE FOR 4 DAYS. 10/12/18 06:15 Blood - Peripheral Venous Blood Culture - Preliminary NO GROWTH OBTAINED AFTER 24 HOURS, INCUBATION TO CONTINUE FOR 4 DAYS. 10/10/18 14:37 Blood - Peripheral Venous Blood Culture - Preliminary NO GROWTH OBTAINED AFTER 48 HOURS, INCUBATION TO CONTINUE FOR 3 DAYS. 10/10/18 14:37 Blood - Peripheral Venous Blood Culture - Final Beta Hem Streptococcus Group C 10/10/18 15:40 Urine - Urine Clean Catch Urine Culture - Final Diphtheroid/Corynebacterium 10/11/18 01:35 Urine For Antigen Detection Legionella Antigen - Final 10/11/18 01:35 Urine For Antigen Detection Streptococcus pneumoniae Antigen (M - Final Code(s): A41.9 - SEPSIS, UNSPECIFIED ORGANISM (2) Pneumonia Assessment/Plan: See above Code(s): J18.9 - PNEUMONIA, UNSPECIFIED ORGANISM Qualifiers: Pneumonia type: due to unspecified organism Laterality: unspecified laterality Lung location: unspecified part of lung Qualified Code(s): J18.9 - Pneumonia, unspecified organism (3) Chest pain on exertion Assessment/Plan: r/o ACS Cardiac monitoring Serial Enzymes elevated Appreciate Cardiology consult EKG- NSR no ST or TWI noted, change compared to prior study Tachycardia Code(s): R07.9 - CHEST PAIN, UNSPECIFIED (4) Morbid obesity with BMI of 50.0-59.9, adult Assessment/Plan: Carb Control Diet Code(s): E66.01 - MORBID (SEVERE) OBESITY DUE TO EXCESS CALORIES; Z68.43 - BODY MASS INDEX (BMI) 50-59.9, ADULT (5) Afib Assessment/Plan: stable [id number] 3 EKG- reviewed Continue Eliquis Code(s): I48.91 - UNSPECIFIED ATRIAL FIBRILLATION Qualifiers: Atrial fibrillation type: unspecified Qualified Code(s): I48.91 - Unspecified atrial fibrillation (6) CAD (coronary artery disease) Assessment/Plan: s/p Stents Continue home meds EKG- reviewed recurrent cp--cardio follow up--for cath Laboratory Tests 09/02/19 09/02/19 06:15 20:42 Troponin I 0.91 H* 0.55 H Code(s): I25.10 - ATHSCL HEART DISEASE OF [place] CORONARY ARTERY W/O ANG PCTRS (7) CHF (congestive heart failure) Assessment/Plan: Chest Xray- congestive changes BNP- pending Continue Torsemide Strict INOs Daily weights Appreciate Cardiology consult Code(s): I50.9 - HEART FAILURE, UNSPECIFIED Qualifiers: Heart failure chronicity: chronic congestive heart failure (8) HTN (hypertension) Assessment/Plan: sub optimal Monitor BP Continue Valsartan Hold Hydralazine secondary to Hyperkalemia Monitor renal function Code(s): I10 - ESSENTIAL (PRIMARY) HYPERTENSION (9) CKD (chronic kidney disease) Assessment/Plan: Cr 1.5 at baseline Monitor BMP Avoid Nephrotoxic drugs Code(s): N18.9 - CHRONIC KIDNEY DISEASE, UNSPECIFIED (10) Diabetes Assessment/Plan: Stable BGMs ISS Code(s): E11.9 - TYPE 2 DIABETES MELLITUS WITHOUT COMPLICATIONS Qualifiers: Diabetes mellitus type: type 2 Diabetes mellitus [place] headgate 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 insulin use: with penitentiary use Diabetes mellitus complication status: without complication Qualified Code(s): E11.9 - Type 2 diabetes mellitus without complications; Z79.4 - termination clerk (current) use of insulin (11) HLD (hyperlipidemia) Assessment/Plan: Stable Continue Lipitor Monitor LFTs Code(s): E78.5 - HYPERLIPIDEMIA, UNSPECIFIED (12) Gout Assessment/Plan: left wrist falir colcrys Code(s): M10.9 - GOUT, UNSPECIFIED Qualifiers: Gout site: foot (13) Leukemia Assessment/Plan: Appreciate Oncology consult (14) PAD (peripheral artery disease) Assessment/Plan: Appreciate Vascular consult Code(s): I73.9 - PERIPHERAL VASCULAR DISEASE, UNSPECIFIED (15) Venous (peripheral) insufficiency Assessment/Plan: See above vascular consult Code(s): I87.2 - VENOUS INSUFFICIENCY (CHRONIC) (PERIPHERAL)
[2018-10-18 12:17] LABS: HEMATOCRIT 26.8 % (35.4-49); HEMOGLOBIN 8.8 GM/dL (11.7-16.9); MCH 27.9 pg (25.7-33.7); MEAN CELL VOLUME 84.6 fl (80-96); MEAN PLT VOLUME 8.3 fl (7.5-11.1); PLATELET COUNT 183 K/MM3 (134-434); RBC 3.16 M/mm3 (4.00-5.60); RDW 17.6 % (11.9-15.9); WHITE BLOOD COUNT 3.5 K/mm3 (4.0-10.0)
[2018-10-18 12:40] LABS: BLOOD UREA NITROGEN 89.9 mg/dL (7-18); CALCIUM 7.8 mg/dL (8.5-10.1); CREATININE 1.8 mg/dL (0.55-1.3); POTASSIUM 4.2 mmol/L (3.5-5.1)
[2018-10-18] MEDS: ACETAMINOPHEN 500 MG TABLET (FP) PO PRN (22:20)
[2018-10-18] MEDS: ATORVASTATIN CA 40 MG TABLET (FP) PO SCH (22:21)
[2018-10-19 06:48] LABS: BASO % 0.9 % (0-2.0); EOS % 6.4 % (0-4.5); HEMATOCRIT 27.4 % (35.4-49); LYMPH % 46.6 % (8-40); MCHC 32.8 g/dl (32.0-35.9); MEAN CELL VOLUME 85.4 fl (80-96); MEAN PLT VOLUME 9.5 fl (7.5-11.1); MONO % 19.4 % (3.8-10.2); NEUT % 26.7 % (42.8-82.8); PLATELET COUNT 206 K/MM3 (134-434); RBC 3.21 M/mm3 (4.00-5.60); RDW 17.5 % (11.9-15.9); WHITE BLOOD COUNT 3.2 K/mm3 (4.0-10.0)
[2018-10-19] MEDS: INSULIN SLIDING SCALE (NOVOLOG) 1 VIAL SQ SCH ×4 (06:54→22:03)
[2018-10-19] MEDS: ACETAMINOPHEN 500 MG TABLET (FP) PO PRN (06:54)
[2018-10-19 07:01] LABS: ALBUMIN 2.2 g/dl (3.4-5.0); BILIRUBIN,TOTAL 0.3 mg/dL (0.2-1); BLOOD UREA NITROGEN 84.7 mg/dL (7-18); CALCIUM 7.7 mg/dL (8.5-10.1); CREATININE 1.5 mg/dL (0.55-1.3); POTASSIUM 4.4 mmol/L (3.5-5.1); TOT PROT 5.9 g/dl (6.4-8.2)
[2018-10-19] MEDS ORDERED: DEXTROSE 5%-WATER 100 ML IVPB ONE (07:52)
[2018-10-19] MEDS: CEFTRIAXONE 2 GM in DEXTROSE 5%-WATER 100 ML IVPB SCH (09:38)
[2018-10-19] MEDS: COLCHICINE 0.6 MG CAP PO SCH (09:39)
[2018-10-19] MEDS: APIXABAN 5 MG TABLET PO SCH ×2 (09:39→22:02)
[2018-10-19] MEDS: ALLOPURINOL 100 MG TABLET (FP) PO SCH (09:39)
[2018-10-19] MEDS: CLOPIDOGREL BISULFATE 75 MG TABLET (FP) PO SCH (09:39)
[2018-10-19] MEDS: GABAPENTIN 300 MG CAPSULE (FP) PO SCH ×2 (09:39→22:02)
--- NOTE | 2018-10-19 11:15 | PN ---
Progress Note, Physician Chief Complaint: chills, weak, sob History of Present Illness: remains off torsemide--no sob, orthopnea, swelling no cp no palpit, syncope no cigs - Current Medication List Current Medications: Active Medications Acetaminophen (Tylenol -) 1,000 mg PO Q6H PRN PRN Reason: PAIN Last Admin: 10/19/18 06:54 Dose: 1,000 mg Allopurinol (Zyloprim -) 100 mg PO DAILY [facility] Last Admin: 10/19/18 09:39 Dose: 100 mg Apixaban (Eliquis -) 5 mg PO BID [facility] Last Admin: 10/19/18 09:39 Dose: 5 mg Atorvastatin Calcium (Lipitor -) 40 mg PO HS [facility] Last Admin: 10/18/18 22:21 Dose: 40 mg Clopidogrel Bisulfate (Plavix -) 75 mg PO DAILY [facility] Last Admin: 10/19/18 09:39 Dose: 75 mg Colchicine (Colcrys) 0.6 mg PO DAILY [facility] Last Admin: 10/19/18 09:39 Dose: 0.6 mg Gabapentin (Neurontin -) 300 mg PO BID [facility] Last Admin: 10/19/18 09:39 Dose: 300 mg Hydralazine HCl (Apresoline -) 10 mg PO BID PRN PRN Reason: HYPERTENSION Ceftriaxone Sodium 2 gm/ (Dextrose) 100 mls @ 100 mls/hr IVPB DAILY [facility]; Protocol Last Admin: 10/19/18 09:38 Dose: 100 mls/hr Insulin Aspart (Novolog Vial Sliding Scale -) 1 vial SQ ACHS [facility]; Protocol Last Admin: 10/19/18 06:54 Dose: Not Given Vitamin A/Vitamin D (Vitamin A & D Top Oint -) 1 applic TP BID PRN PRN Reason: WOUND CARE - Objective Vital Signs: Vital Signs Temperature 97.7 F 10/19/18 08:24 Pulse Rate 77 10/19/18 08:24 Respiratory Rate 18 10/19/18 08:27 Blood Pressure 164/75 10/19/18 08:24 O2 Sat by Pulse Oximetry (%) 98 10/19/18 08:27 Constitutional: Yes: No Distress, Calm Eyes: No: Sclera Icterus HENT: No: Nasal Congestion Cardiovascular: Yes: Regular Rate and Rhythm, S1, S2, Other (PMI non diplaced). No: JVD, Gallop, Murmur Respiratory: Yes: CTA Bilaterally. No: Accessory Muscle Use, Rales, Wheezes Gastrointestinal: Yes: Normal Bowel Sounds, Soft. No: Tenderness Musculoskeletal: Yes: Other (No kyphosis) Extremities: No: Cold, Cyanosis Edema: No Integumentary: No: Jaundice Neurological: Yes: Alert, Oriented (x3) Psychiatric: No: Agitated Labs: CBC, BMP 10/19/18 05:00 10/19/18 05:00 Assessment/Plan tele: NSR with marked sinus arrhythmia and pauses < 3 sec in this setting Assessment/Plan a/p: 63 m hx cad s/p pci (10/2012 darryn to pLCx and dLCx, residual 30-50% in mRCA, pLAD, mLAD), dchf, venous insuff, morbid obesity, ckd, htn, hld, dm, pafib, dvt , foot ulcers, leukemia here with sepsis. strep bacteremia (group C), felt likely sec to cellulitis per ID: -on abx per ID -2nd set BCx's no growth to date paroxysmal Afib/sinus gabriela -controlled, off bb since had episode of gabriela in past -sinus here with sinus arrhythmia, pauses (< 3 sec) likely on this basis--cont tele (? hi resting vagal tone, obese--YUVAL?) -cont home eliquis CAD: -no chest pain sxs, ecg w/o ischemic changes -troponin moderately elevated on admit (2.9)--trended down. -most likely due to sepsis, does not appear to be acs, no clinical picture of acute coronary ischemia. -ont home eliquis, plavix, statin -echo here unremarkable -was planned for outpt stress due to chronic leong, however elevated tropnins here , hence invasive workup with cath being considered. -mult comorbidities weighing on risk/benefit of cath, as below: -ZHANG here, creat remains well above prior baseline--ARB, cyclosporine held 10/17 per renal--trend creatinine -repeat BCx negative. per d/w Dr. Reyes ID, recommendation is to defer cath until completes 10 days of abx (started in ER on 10/10) and remains clinically stable from ID standpoint -Dr. Mattson input requested: (1) to clarify prognosis of his leukemia/lymphoma with Onc on Friday (Twila), which may impact on decision (PLTs normal on trend here); (2)hgb running below recent baseline (10.8 on 06/28 office labs), borderline iron indices--? sec to his heme malignancy, ? occult GIB (? needs w/ u prior to stent with prolonged DAPT course) HFpEF/venous insuff/edema -holding torsemide sec to ZHANG -appears euvolemic--continue holding torsemide -hi suspicion YUVLA--rec outpt PSG HTN -bp mildly elevated -home ARB on hold sec to ZHANG -observe bp trend, consider nitrates zhang on ckd -baseline 1.3 (06/28) -likely 2/2 sepsis and med effect--renal fxn improving steadily since cyclosporine, ARB and torsemide held -observe trend anemia: -hgb stable 8s-9s here -no recent baseline values available -? sec to CKD -iron low, iron sat low-nl range, ferritin normal -will d/w heme, as above
--- NOTE | 2018-10-19 11:43 | PN ---
Progress Note, Physician History of Present Illness: AWAKE,ALERT SUPINE IN BED FEELING BETTER TEMPS DOWN AFEBRILE REPEAT BC (-) ECHO NO VEGETATIONS - Current Medication List Current Medications: Active Medications Acetaminophen (Tylenol -) 1,000 mg PO Q6H PRN PRN Reason: PAIN Last Admin: 10/19/18 06:54 Dose: 1,000 mg Allopurinol (Zyloprim -) 100 mg PO DAILY [facility] Last Admin: 10/19/18 09:39 Dose: 100 mg Apixaban (Eliquis -) 5 mg PO BID [facility] Last Admin: 10/19/18 09:39 Dose: 5 mg Atorvastatin Calcium (Lipitor -) 40 mg PO HS [facility] Last Admin: 10/18/18 22:21 Dose: 40 mg Clopidogrel Bisulfate (Plavix -) 75 mg PO DAILY [facility] Last Admin: 10/19/18 09:39 Dose: 75 mg Colchicine (Colcrys) 0.6 mg PO DAILY [facility] Last Admin: 10/19/18 09:39 Dose: 0.6 mg Gabapentin (Neurontin -) 300 mg PO BID [facility] Last Admin: 10/19/18 09:39 Dose: 300 mg Hydralazine HCl (Apresoline -) 10 mg PO BID PRN PRN Reason: HYPERTENSION Ceftriaxone Sodium 2 gm/ (Dextrose) 100 mls @ 100 mls/hr IVPB DAILY [facility]; Protocol Last Admin: 10/19/18 09:38 Dose: 100 mls/hr Insulin Aspart (Novolog Vial Sliding Scale -) 1 vial SQ ACHS [facility]; Protocol Last Admin: 10/19/18 06:54 Dose: Not Given Vitamin A/Vitamin D (Vitamin A & D Top Oint -) 1 applic TP BID PRN PRN Reason: WOUND CARE - Objective Vital Signs: Vital Signs Temperature 97.7 F 10/19/18 08:24 Pulse Rate 77 10/19/18 08:24 Respiratory Rate 18 10/19/18 08:27 Blood Pressure 164/75 10/19/18 08:24 O2 Sat by Pulse Oximetry (%) 98 10/19/18 08:27 Constitutional: Yes: No Distress, Obese Cardiovascular: Yes: Regular Rate and Rhythm, S1, S2 Respiratory: Yes: CTA Bilaterally Gastrointestinal: Yes: Normal Bowel Sounds, Soft. No: Tenderness Edema: Yes Edema: LLE: 2+, RLE: 2+ Integumentary: Yes: Venous Stasis Changes, Other (DECREASED ERYTHEMA/ WARMTH R LE) Labs: CBC, BMP 10/19/18 05:00 10/19/18 05:00 Assessment/Plan GRP C STREP BACTEREMIA, PROBABLE SKIN SOURCE CELLULITIS L LE IMPROVED CAD REPEAT BC NO GROWTH ECHO NO VEGETATIONS DAY # 10 ANTIBIOTICS CLEARED FOR CARDIAC CATH FROM ID STANDPOINT DISCUSSED WITH AT BEDSIDE
--- NOTE | 2018-10-19 12:19 | PN ---
Progress Note, Physician History of Present Illness: Pt seen and examined at bedside. He is awake and alert. He denies shortness of breath. - Current Medication List Current Medications: Active Medications Acetaminophen (Tylenol -) 1,000 mg PO Q6H PRN PRN Reason: PAIN Last Admin: 10/19/18 06:54 Dose: 1,000 mg Allopurinol (Zyloprim -) 100 mg PO DAILY [facility] Last Admin: 10/19/18 09:39 Dose: 100 mg Apixaban (Eliquis -) 5 mg PO BID [facility] Last Admin: 10/19/18 09:39 Dose: 5 mg Atorvastatin Calcium (Lipitor -) 40 mg PO HS [facility] Last Admin: 10/18/18 22:21 Dose: 40 mg Clopidogrel Bisulfate (Plavix -) 75 mg PO DAILY [facility] Last Admin: 10/19/18 09:39 Dose: 75 mg Colchicine (Colcrys) 0.6 mg PO DAILY [facility] Last Admin: 10/19/18 09:39 Dose: 0.6 mg Gabapentin (Neurontin -) 300 mg PO BID [facility] Last Admin: 10/19/18 09:39 Dose: 300 mg Hydralazine HCl (Apresoline -) 10 mg PO BID PRN PRN Reason: HYPERTENSION Ceftriaxone Sodium 2 gm/ (Dextrose) 100 mls @ 100 mls/hr IVPB DAILY [facility]; Protocol Last Admin: 10/19/18 09:38 Dose: 100 mls/hr Insulin Aspart (Novolog Vial Sliding Scale -) 1 vial SQ ACHS [facility]; Protocol Last Admin: 10/19/18 06:54 Dose: Not Given Vitamin A/Vitamin D (Vitamin A & D Top Oint -) 1 applic TP BID PRN PRN Reason: WOUND CARE - Objective Vital Signs: Vital Signs Temperature 97.7 F 10/19/18 08:24 Pulse Rate 77 10/19/18 08:24 Respiratory Rate 18 10/19/18 08:27 Blood Pressure 164/75 10/19/18 08:24 O2 Sat by Pulse Oximetry (%) 98 10/19/18 08:27 Constitutional: Yes: Calm Eyes: Yes: Conjunctiva Clear HENT: Yes: Atraumatic Neck: Yes: Supple Cardiovascular: Yes: S1, S2 Respiratory: Yes: CTA Bilaterally Gastrointestinal: Yes: Soft, Abdomen, Obese Genitourinary: Yes: WNL Musculoskeletal: Yes: WNL Edema: Yes Edema: LLE: 2+, RLE: 2+ Integumentary: Yes: Venous Stasis Changes Neurological: Yes: Oriented Psychiatric: Yes: Oriented Labs: CBC, BMP 10/19/18 05:00 10/19/18 05:00 Problem List - Problems (1) Bacteremia Code(s): R78.81 - BACTEREMIA (2) Leg edema Code(s): R60.0 - LOCALIZED EDEMA (3) Sepsis Code(s): A41.9 - SEPSIS, UNSPECIFIED ORGANISM (4) ZHANG (acute kidney injury) Code(s): N17.9 - ACUTE KIDNEY FAILURE, UNSPECIFIED Assessment/Plan Current Medications Generic Name Dose Route Start Last Admin Trade Name Freq PRN Reason Stop Dose Admin Acetaminophen 1,000 mg 10/18/18 11:33 10/19/18 06:54 Tylenol - PO 1,000 mg Q6H PRN Administration PAIN Allopurinol 100 mg 10/17/18 16:45 10/19/18 09:39 Zyloprim - PO 100 mg DAILY [facility]ENNY Administration Apixaban 5 mg 10/10/18 22:15 10/19/18 09:39 Eliquis - PO 5 mg BID JENNY Administration Atorvastatin Calcium 40 mg 10/11/18 22:00 10/18/18 22:21 Lipitor - PO 40 mg HS JENNY Administration Clopidogrel Bisulfate 75 mg 10/11/18 10:00 10/19/18 09:39 Plavix - PO 75 mg DAILY [facility]NY Administration Colchicine 0.6 mg 10/17/18 11:30 10/19/18 09:39 Colcrys PO 0.6 mg DAILY [facility]ENNY Administration Gabapentin 300 mg 10/10/18 22:15 10/19/18 09:39 Neurontin - PO 300 mg BID JENNY Administration Hydralazine HCl 10 mg 10/15/18 14:09 Apresoline - PO BID PRN HYPERTENSION Ceftriaxone Sodium 2 gm/ 100 mls @ 100 mls/hr 10/11/18 15:00 10/19/18 09:38 Dextrose IVPB 100 mls/hr DAILY [facility]ENNY Administration Protocol Insulin Aspart 1 vial 10/14/18 11:00 10/19/18 06:54 Novolog Vial Sliding Scale - SQ Not Given ACHS [facility] Protocol Vitamin A/Vitamin D 1 applic 10/12/18 03:40 Vitamin A & D Top Oint - TP BID PRN WOUND CARE Laboratory Tests 10/16/18 10/16/18 11:57 11:57 Urine Protein 1+ H Urine Blood Negative Urine Eosinophils None seen Impression 1. CKD 2. ZHANG 3. cellulitis 4. morbid obesity 5. DM 6. PVD 7. Gout 8. Large cell granular leukemia/lymphoma 9. anemia 10. bacteremia 11. leukopenia Plan - renal function is improving - will give a dose of torsemide - trevor also on hole, will give dose today - repeat labs in am - follow cultures - hold cyclosporine as he has infection and leukopenia - heme onc follow up
[2018-10-19] MEDS ORDERED: TORSEMIDE 20 MG TABLET (FP) PO ONE (13:15)
[2018-10-19] MEDS ORDERED: VALSARTAN 80 MG TABLET (UD) PO ONE (13:15)
--- NOTE | 2018-10-19 13:18 | PN ---
Progress Note, Physician Chief Complaint: patient seen and examined completed antibiotic course - Current Medication List Current Medications: Active Medications Acetaminophen (Tylenol -) 1,000 mg PO Q6H PRN PRN Reason: PAIN Last Admin: 10/19/18 06:54 Dose: 1,000 mg Allopurinol (Zyloprim -) 100 mg PO DAILY [facility] Last Admin: 10/19/18 09:39 Dose: 100 mg Apixaban (Eliquis -) 5 mg PO BID [facility] Last Admin: 10/19/18 09:39 Dose: 5 mg Atorvastatin Calcium (Lipitor -) 40 mg PO HS [facility] Last Admin: 10/18/18 22:21 Dose: 40 mg Clopidogrel Bisulfate (Plavix -) 75 mg PO DAILY [facility] Last Admin: 10/19/18 09:39 Dose: 75 mg Colchicine (Colcrys) 0.6 mg PO DAILY [facility] Last Admin: 10/19/18 09:39 Dose: 0.6 mg Gabapentin (Neurontin -) 300 mg PO BID [facility] Last Admin: 10/19/18 09:39 Dose: 300 mg Hydralazine HCl (Apresoline -) 10 mg PO BID PRN PRN Reason: HYPERTENSION Ceftriaxone Sodium 2 gm/ (Dextrose) 100 mls @ 100 mls/hr IVPB DAILY [facility]; Protocol Last Admin: 10/19/18 09:38 Dose: 100 mls/hr Insulin Aspart (Novolog Vial Sliding Scale -) 1 vial SQ ACHS [facility]; Protocol Last Admin: 10/19/18 13:11 Dose: Not Given Vitamin A/Vitamin D (Vitamin A & D Top Oint -) 1 applic TP BID PRN PRN Reason: WOUND CARE - Objective Vital Signs: Vital Signs Temperature 97.7 F 10/19/18 08:24 Pulse Rate 77 10/19/18 08:24 Respiratory Rate 18 10/19/18 08:27 Blood Pressure 164/75 10/19/18 08:24 O2 Sat by Pulse Oximetry (%) 98 10/19/18 08:27 Constitutional: Yes: Calm Cardiovascular: Yes: Regular Rate and Rhythm, S1, S2 Respiratory: Yes: CTA Bilaterally Extremities: Yes: Other (chronic skin changes) Edema: Yes Neurological: Yes: Alert, Oriented Labs: CBC, BMP 10/19/18 05:00 10/19/18 05:00 Problem List - Problems (1) Bacteremia Assessment/Plan: Microbiology 10/10/18 14:37 Blood - Peripheral Venous Blood Culture - Final Beta Hem Streptococcus Group C iv rocephin will need 10 days - course completed cleared by ID for cardiac cath Code(s): R78.81 - BACTEREMIA (2) Chest pain on exertion Assessment/Plan: will need cardiac cath awaiting heme input regarding anemia and leukemia Code(s): R07.9 - CHEST PAIN, UNSPECIFIED (3) Leg edema Assessment/Plan: torsemide Code(s): R60.0 - LOCALIZED EDEMA (4) CKD (chronic kidney disease) Assessment/Plan: renal evaluation dr coyle check labs Code(s): N18.9 - CHRONIC KIDNEY DISEASE, UNSPECIFIED (5) Anemia Assessment/Plan: gi consult Code(s): D64.9 - ANEMIA, UNSPECIFIED
--- NOTE | 2018-10-19 15:23 | CON.GI ---
Consult Consult Specialty:: GI Reason for Consultation:: Anemia - History of Present Illness History of Present Illness: I was consulted for patient due to anemia. He has history of rectal pain, s/p colonoscopy 12/03/16 colonic polyp and scattered diverticua. Patient states 3 days ago he had an episode of rectal bleeding. Patient is on chronic use of Eliquis due to Afib. On admission his Hg 11.1 but has shown downtrend and currently 9.0 with Stool OB positive. He denies any further episodes of rectal bleeding. - History Source History Provided By: Patient Limitations to Obtaining History: No Limitations - Past Medical History [employer]: Yes: Peripheral Neuropathy Cardio/Vascular: Yes: AFIB, CAD, CHF, HTN, Hyperlipdemia Gastrointestinal: Yes: GERD Renal/: Yes: Renal Inusuff, Other (gopal) Infectious Disease: Yes: Other (osteomyelitis of left fifth metartarsal 2011) Endocrine: Yes: Diabetes Mellitus Additional Medical History: morbid obesity - Past Surgical History Past Surgical History: Yes: Stent (X2) - Alcohol/Substance Use Hx Alcohol Use: No History of Substance Use: reports: None - Smoking History Smoking history: Never smoked Have you smoked in the past 12 months: No Aproximately how many cigarettes per day: 0 - Social History Usual Living Arrangement: With Spouse ADL: Independent History of Recent Travel: No Home Medications - Allergies Allergies/Adverse Reactions: Allergies Allergy/AdvReac Type Severity Reaction Status Date / Time No Known Drug Allergies Allergy Verified 10/10/18 14:30 - Home Medications Home Medications: Ambulatory Orders Clopidogrel Bisulfate [Plavix -] 75 mg PO DAILY 05/17/16 Cyclosporine [Sandimmune] 100 mg PO BID 05/17/16 Gabapentin 300 mg PO BID 05/17/16 Potassium Chloride [K-Dur -] 20 meq PO DAILY 05/17/16 Atorvastatin Ca [Lipitor] 40 mg PO DAILY 07/23/16 Apixaban [Eliquis -] 5 mg PO BID tablet 07/25/16 Colchicine 0.6 mg PO DAILY 12/02/16 Torsemide [Demadex -] 50 mg PO DAILY 12/02/16 Valsartan 160 mg PO DAILY 12/02/16 Allopurinol 100 mg PO DAILY 10/10/18 Hydralazine HCl 25 mg PO DAILY 10/10/18 Meclizine HCl [Antivert -] 1 tab PO PRN 10/10/18 Trulicity 0 units SQ DAILY 10/10/18 Family Disease History - Family Disease History Family Disease History: Diabetes: Father, Mother, Heart Disease: Father, Mother , Brother Review of Systems - Review of Systems Constitutional: reports: No Symptoms Eyes: reports: No Symptoms HENT: reports: No Symptoms Neck: reports: No Symptoms Cardiovascular: reports: No Symptoms Respiratory: reports: No Symptoms Gastrointestinal: reports: Rectal Bleeding Genitourinary: reports: No Symptoms Breasts: reports: No Symptoms Reported Musculoskeletal: reports: No Symptoms Integumentary: reports: No Symptoms Neurological: reports: No Symptoms Endocrine: reports: No Symptoms Hematology/Lymphatic: reports: No Symptoms Psychiatric: reports: No Symptoms Physical Exam-GI Vital Signs: Vital Signs Temperature 97.7 F 10/19/18 08:24 Pulse Rate 77 10/19/18 08:24 Respiratory Rate 18 10/19/18 08:27 Blood Pressure 164/75 10/19/18 08:24 O2 Sat by Pulse Oximetry (%) 98 10/19/18 08:27 Constitutional: Yes: No Distress, Calm, Obese Eyes: Yes: Conjunctiva Clear HENT: Yes: Atraumatic Cardiovascular: Yes: Pulse Irregular Respiratory: Yes: Regular, CTA Bilaterally Gastrointestinal Inspection: Yes: WNL. No: Ascites, Distention, Hernia, Scars, Other ...Auscultate: Yes: Normoactive Bowel Sounds. No: Hyperactive Bowel Sounds, Hypoactive Bowel Sounds, No Bowel Sounds, Other ...Palpate: Yes: Soft, Other (non tender). No: Firm/Rigid, Guarding, Hepatomegaly, Mass, Pulsatile Mass, Splenomegaly, Tenderness, Tenderness, Epigastium, Tenderness, Rebound ...Percussion: Yes: Tympanitic. No: Dullness, Fluid Wave, Other Neurological: Yes: Alert, Oriented Psychiatric: Yes: Alert, Oriented Labs: CBC, BMP 10/19/18 05:00 10/19/18 05:00 Problem List - Problems (1) Anemia Assessment/Plan: most likely secondary to bleeding hemorrhoids when he gets constipated. R> colace 3 caos daily no gi procedures at this time Code(s): D64.9 - ANEMIA, UNSPECIFIED
--- NOTE | 2018-10-19 19:19 | PN ---
Progress Note (short form) - Note Progress Note: Patient seen and examined Complains of SOB on minimal exertion--walking up steps, getting OOB Getting up from toilet sat- dizziness Cardiac cath is being contemplated Last Vital Signs Temp Pulse Resp BP Pulse Ox 97.4 F L 71 20 151/73 98 10/19/18 14:00 10/19/18 14:00 10/19/18 14:00 10/19/18 14:00 10/19/18 08:27 HEENT: VALERIO, EOM Intact, poor dentition Oropharynx: No thrush, No mucositis Cor: RSR, No murmurs, No gallops Lungs: Clear to P&A Abd: Soft, Normal bowel sounds, No organomegaly, obese Ext LE edema , stasis Skin: stasis LE's; Integument intact CBC, BMP 10/19/18 05:00 10/19/18 05:00 Current Medications Generic Name Dose Route Start Last Admin Trade Name Freq PRN Reason Stop Dose Admin Acetaminophen 1,000 mg 10/18/18 11:33 10/19/18 06:54 Tylenol - PO 1,000 mg Q6H PRN Administration PAIN Allopurinol 100 mg 10/17/18 16:45 10/19/18 09:39 Zyloprim - PO 100 mg DAILY [facility]ENNY Administration Apixaban 5 mg 10/10/18 22:15 10/19/18 09:39 Eliquis - PO 5 mg BID JENNY Administration Atorvastatin Calcium 40 mg 10/11/18 22:00 10/18/18 22:21 Lipitor - PO 40 mg HS JENNY Administration Clopidogrel Bisulfate 75 mg 10/11/18 10:00 10/19/18 09:39 Plavix - PO 75 mg DAILY [facility] Administration Colchicine 0.6 mg 10/17/18 11:30 10/19/18 09:39 Colcrys PO 0.6 mg DAILY [facility] Administration Gabapentin 300 mg 10/10/18 22:15 10/19/18 09:39 Neurontin - PO 300 mg BID JENNY Administration Hydralazine HCl 10 mg 10/15/18 14:09 Apresoline - PO BID PRN HYPERTENSION Ceftriaxone Sodium 2 gm/ 100 mls @ 100 mls/hr 10/11/18 15:00 10/19/18 09:38 Dextrose IVPB 100 mls/hr DAILY [facility] Administration Protocol Insulin Aspart 1 vial 10/14/18 11:00 10/19/18 17:17 Novolog Vial Sliding Scale - SQ Not Given ACHS [facility] Protocol Vitamin A/Vitamin D 1 applic 10/12/18 03:40 Vitamin A & D Top Oint - TP BID PRN WOUND CARE Impression: Patient with T-cell Large cell leukemia /lymphoma He has done well with cyclosporine over the past years. There is no significant cytopenias at this time or organomegaly . Cardiac work up can proceed.
[2018-10-19] MEDS: ATORVASTATIN CA 40 MG TABLET (FP) PO SCH (22:02)
[2018-10-20] MEDS: INSULIN SLIDING SCALE (NOVOLOG) 1 VIAL SQ SCH ×4 (06:20→21:52)
[2018-10-20] MEDS ORDERED: DEXTROSE 5%-WATER 100 ML IVPB ONE (08:15)
[2018-10-20] MEDS: CEFTRIAXONE 2 GM in DEXTROSE 5%-WATER 100 ML IVPB SCH (10:01)
[2018-10-20] MEDS: APIXABAN 5 MG TABLET PO SCH ×2 (10:02→21:35)
[2018-10-20] MEDS: GABAPENTIN 300 MG CAPSULE (FP) PO SCH ×2 (10:02→21:35)
[2018-10-20] MEDS: CLOPIDOGREL BISULFATE 75 MG TABLET (FP) PO SCH (10:02)
[2018-10-20] MEDS: ALLOPURINOL 100 MG TABLET (FP) PO SCH (10:02)
[2018-10-20] MEDS: COLCHICINE 0.6 MG CAP PO SCH (10:02)
--- NOTE | 2018-10-20 11:37 | PN ---
Progress Note (short form) - Note Progress Note: s: no chest pain, palps, dizziness, dyspnea no cigs Current Medications Acetaminophen (Tylenol -) 1,000 mg PO Q6H PRN PRN Reason: PAIN Last Admin: 10/19/18 06:54 Dose: 1,000 mg Allopurinol (Zyloprim -) 100 mg PO DAILY [facility] Last Admin: 10/20/18 10:02 Dose: 100 mg Apixaban (Eliquis -) 5 mg PO BID [facility] Last Admin: 10/20/18 10:02 Dose: 5 mg Atorvastatin Calcium (Lipitor -) 40 mg PO HS [facility] Last Admin: 10/19/18 22:02 Dose: 40 mg Clopidogrel Bisulfate (Plavix -) 75 mg PO DAILY [facility] Last Admin: 10/20/18 10:02 Dose: 75 mg Colchicine (Colcrys) 0.6 mg PO DAILY [facility] Last Admin: 10/20/18 10:02 Dose: 0.6 mg Gabapentin (Neurontin -) 300 mg PO BID [facility] Last Admin: 10/20/18 10:02 Dose: 300 mg Hydralazine HCl (Apresoline -) 10 mg PO BID PRN PRN Reason: HYPERTENSION Ceftriaxone Sodium 2 gm/ (Dextrose) 100 mls @ 100 mls/hr IVPB DAILY [facility]; Protocol Last Admin: 10/20/18 10:01 Dose: 100 mls/hr Insulin Aspart (Novolog Vial Sliding Scale -) 1 vial SQ ACHS [facility]; Protocol Last Admin: 10/20/18 06:20 Dose: Not Given Vitamin A/Vitamin D (Vitamin A & D Top Oint -) 1 applic TP BID PRN PRN Reason: WOUND CARE Vital Signs Period Temp Pulse Resp BP Sys/Reddy Pulse Ox Last 24 Hr 97.0 F-98.3 F 68-83 20-20 131-165/50-77 98-98 Constitutional: Yes: No Distress, Calm Eyes: No: Sclera Icterus HENT: No: Nasal Congestion Cardiovascular: Yes: Regular Rate and Rhythm, S1, S2, Other (PMI non diplaced). No: JVD, Gallop, Murmur Respiratory: Yes: CTA Bilaterally. No: Accessory Muscle Use, Rales, Wheezes Gastrointestinal: Yes: Normal Bowel Sounds, Soft. No: Tenderness Musculoskeletal: Yes: Other (No kyphosis) Extremities: No: Cold, Cyanosis Edema: No Integumentary: No: Jaundice Neurological: Yes: Alert, Oriented (x3) Psychiatric: No: Agitated Assessment/Plan tele: NSR with marked sinus arrhythmia and pauses < 3 sec Assessment/Plan a/p: 63 m hx cad s/p pci (10/2012 darryn to pLCx and dLCx, residual 30-50% in mRCA, pLAD, mLAD), dchf, venous insuff, morbid obesity, ckd, htn, hld, dm, pafib, dvt , foot ulcers, leukemia here with sepsis. strep bacteremia (group C), felt likely sec to cellulitis per ID: -on abx per ID - course of abx completed as of 10/20 -2nd set BCx's no growth to date paroxysmal Afib/sinus gabriela -controlled, off bb since had episode of gabriela in past -sinus here with sinus arrhythmia, pauses (< 3 sec) likely on this basis--cont tele (? hi resting vagal tone, obese--YUVAL?) -cont home eliquis CAD: -no chest pain sxs, ecg w/o ischemic changes -troponin moderately elevated on admit (2.9)--trended down. -most likely due to sepsis, does not appear to be acs, no clinical picture of acute coronary ischemia. -ont home eliquis, plavix, statin -echo here unremarkable -was planned for outpt stress due to chronic leong, however elevated tropnins here , hence invasive workup with cath being considered. -mult comorbidities weighing on risk/benefit of cath, and possibly prolonged DAPT course as below: - abx course completed, repeat bcx clear - stable from ID standpoint - per heme - no cytopenias, has done well from standpoint of leukemia, cardiac workup may proceed - pt with anemia and hemoccult+ stool, rectal bleeding episode - GI consulted -ZHANG here, creat remains elevated -ARB, cyclosporine held 10/17 per renal, received dose of valsartan and torsemide 10/19 - d/w renal - at risk for WATSON, remains off cyclosporine for now. f/u labs today , Cr pending HFpEF/venous insuff/edema -holding torsemide sec to ZHANG -received dose of torsemide 10/19 -hi suspicion YUVAL--rec outpt PSG HTN -bp mildly elevated -home ARB on hold sec to ZHANG -observe bp trend, consider nitrates zhang on ckd -baseline 1.3 (06/28) -likely 2/2 sepsis and med effect--renal fxn improving steadily since cyclosporine, ARB and torsemide held -observe trend anemia: -hgb stable 8s-9s here -no recent baseline values available -? sec to CKD -iron low, iron sat low-nl range, ferritin normal - GI consulted
--- NOTE | 2018-10-20 12:07 | PN ---
Progress Note, Physician History of Present Illness: Pt seen and examined at bedside. He is awake and alert. He denies shortness of breath. He denies chest pain. - Current Medication List Current Medications: Active Medications Acetaminophen (Tylenol -) 1,000 mg PO Q6H PRN PRN Reason: PAIN Last Admin: 10/19/18 06:54 Dose: 1,000 mg Allopurinol (Zyloprim -) 100 mg PO DAILY [facility] Last Admin: 10/20/18 10:02 Dose: 100 mg Apixaban (Eliquis -) 5 mg PO BID [facility] Last Admin: 10/20/18 10:02 Dose: 5 mg Atorvastatin Calcium (Lipitor -) 40 mg PO HS [facility] Last Admin: 10/19/18 22:02 Dose: 40 mg Clopidogrel Bisulfate (Plavix -) 75 mg PO DAILY [facility] Last Admin: 10/20/18 10:02 Dose: 75 mg Colchicine (Colcrys) 0.6 mg PO DAILY [facility] Last Admin: 10/20/18 10:02 Dose: 0.6 mg Gabapentin (Neurontin -) 300 mg PO BID [facility] Last Admin: 10/20/18 10:02 Dose: 300 mg Hydralazine HCl (Apresoline -) 10 mg PO BID PRN PRN Reason: HYPERTENSION Ceftriaxone Sodium 2 gm/ (Dextrose) 100 mls @ 100 mls/hr IVPB DAILY [facility]; Protocol Last Admin: 10/20/18 10:01 Dose: 100 mls/hr Insulin Aspart (Novolog Vial Sliding Scale -) 1 vial SQ ACHS [facility]; Protocol Last Admin: 10/20/18 11:32 Dose: Not Given Vitamin A/Vitamin D (Vitamin A & D Top Oint -) 1 applic TP BID PRN PRN Reason: WOUND CARE - Objective Vital Signs: Vital Signs Temperature 97.8 F 10/20/18 09:12 Pulse Rate 69 10/20/18 09:12 Respiratory Rate 20 10/20/18 09:12 Blood Pressure 134/56 L 10/20/18 09:12 O2 Sat by Pulse Oximetry (%) 98 10/20/18 09:00 Constitutional: Yes: Calm Eyes: Yes: Conjunctiva Clear HENT: Yes: Atraumatic Neck: Yes: Supple Cardiovascular: Yes: S1, S2 Respiratory: Yes: CTA Bilaterally Gastrointestinal: Yes: Soft Genitourinary: Yes: WNL Musculoskeletal: Yes: WNL Edema: Yes Edema: LLE: 1+, RLE: 1+ Integumentary: Yes: Venous Stasis Changes Neurological: Yes: Oriented Psychiatric: Yes: Oriented Labs: CBC, BMP 10/19/18 05:00 10/19/18 05:00 Problem List - Problems (1) Bacteremia Code(s): R78.81 - BACTEREMIA (2) Leg edema Code(s): R60.0 - LOCALIZED EDEMA (3) Sepsis Code(s): A41.9 - SEPSIS, UNSPECIFIED ORGANISM (4) ZHANG (acute kidney injury) Code(s): N17.9 - ACUTE KIDNEY FAILURE, UNSPECIFIED Assessment/Plan Current Medications Generic Name Dose Route Start Last Admin Trade Name Freq PRN Reason Stop Dose Admin Acetaminophen 1,000 mg 10/18/18 11:33 10/19/18 06:54 Tylenol - PO 1,000 mg Q6H PRN Administration PAIN Allopurinol 100 mg 10/17/18 16:45 10/20/18 10:02 Zyloprim - PO 100 mg DAILY JENNY Administration Apixaban 5 mg 10/10/18 22:15 10/20/18 10:02 Eliquis - PO 5 mg BID JENNY Administration Atorvastatin Calcium 40 mg 10/11/18 22:00 10/19/18 22:02 Lipitor - PO 40 mg HS JENNY Administration Clopidogrel Bisulfate 75 mg 10/11/18 10:00 10/20/18 10:02 Plavix - PO 75 mg DAILY [facility] Administration Colchicine 0.6 mg 10/17/18 11:30 10/20/18 10:02 Colcrys PO 0.6 mg DAILY [facility]ENNY Administration Gabapentin 300 mg 10/10/18 22:15 10/20/18 10:02 Neurontin - PO 300 mg BID JENNY Administration Hydralazine HCl 10 mg 10/15/18 14:09 Apresoline - PO BID PRN HYPERTENSION Ceftriaxone Sodium 2 gm/ 100 mls @ 100 mls/hr 10/11/18 15:00 10/20/18 10:01 Dextrose IVPB 100 mls/hr DAILY [facility]NY Administration Protocol Insulin Aspart 1 vial 10/14/18 11:00 10/20/18 11:32 Novolog Vial Sliding Scale - SQ Not Given ACHS [facility] Protocol Vitamin A/Vitamin D 1 applic 10/12/18 03:40 Vitamin A & D Top Oint - TP BID PRN WOUND CARE Impression 1. CKD 2. ZHANG 3. cellulitis 4. morbid obesity 5. DM 6. PVD 7. Gout 8. Large cell granular leukemia/lymphoma 9. anemia 10. bacteremia 11. leukopenia Plan - check labs - diovan on hold for now - discussed with cardio, pt will need cath once stable - check cbc - discussed with family - repeat labs in am - follow cultures - hold cyclosporine as he has infection and leukopenia - heme onc follow up
[2018-10-20 13:24] LABS: BLOOD UREA NITROGEN 62.7 mg/dL (7-18); CALCIUM 8.4 mg/dL (8.5-10.1); CREATININE 1.4 mg/dL (0.55-1.3); POTASSIUM 4.4 mmol/L (3.5-5.1)
[2018-10-20 14:54] VITALS: BMI 50.1
--- NOTE | 2018-10-20 16:58 | PN ---
Progress Note, Physician History of Present Illness: AWAKE,ALERT SUPINE IN BED FEELING BETTER TEMPS DOWN AFEBRILE REPEAT BC (-) ECHO NO VEGETATIONS - Current Medication List Current Medications: Active Medications Acetaminophen (Tylenol -) 1,000 mg PO Q6H PRN PRN Reason: PAIN Last Admin: 10/19/18 06:54 Dose: 1,000 mg Allopurinol (Zyloprim -) 100 mg PO DAILY [facility] Last Admin: 10/20/18 10:02 Dose: 100 mg Apixaban (Eliquis -) 5 mg PO BID [facility] Last Admin: 10/20/18 10:02 Dose: 5 mg Atorvastatin Calcium (Lipitor -) 40 mg PO HS [facility] Last Admin: 10/19/18 22:02 Dose: 40 mg Clopidogrel Bisulfate (Plavix -) 75 mg PO DAILY [facility] Last Admin: 10/20/18 10:02 Dose: 75 mg Colchicine (Colcrys) 0.6 mg PO DAILY [facility] Last Admin: 10/20/18 10:02 Dose: 0.6 mg Gabapentin (Neurontin -) 300 mg PO BID [facility] Last Admin: 10/20/18 10:02 Dose: 300 mg Hydralazine HCl (Apresoline -) 10 mg PO BID PRN PRN Reason: HYPERTENSION Ceftriaxone Sodium 2 gm/ (Dextrose) 100 mls @ 100 mls/hr IVPB DAILY [facility]; Protocol Last Admin: 10/20/18 10:01 Dose: 100 mls/hr Insulin Aspart (Novolog Vial Sliding Scale -) 1 vial SQ ACHS [facility]; Protocol Last Admin: 10/20/18 11:32 Dose: Not Given Vitamin A/Vitamin D (Vitamin A & D Top Oint -) 1 applic TP BID PRN PRN Reason: WOUND CARE - Objective Vital Signs: Vital Signs Temperature 97.9 F 10/20/18 14:00 Pulse Rate 77 10/20/18 14:00 Respiratory Rate 20 10/20/18 14:00 Blood Pressure 139/65 10/20/18 14:00 O2 Sat by Pulse Oximetry (%) 98 10/20/18 09:00 Constitutional: Yes: No Distress, Obese Cardiovascular: Yes: Regular Rate and Rhythm, S1, S2 Respiratory: Yes: CTA Bilaterally Gastrointestinal: Yes: Normal Bowel Sounds, Soft, Abdomen, Obese. No: Tenderness Extremities: Yes: Other (+ CHRONIC VENOUS STASIS DERMATITIS L LE LESS WARM) Labs: CBC, BMP 10/19/18 05:00 10/20/18 12:45 Assessment/Plan GRP C STREP BACTEREMIA, PROBABLE SKIN SOURCE CELLULITIS L LE IMPROVED CAD REPEAT BC NO GROWTH ECHO NO VEGETATIONS DAY # 11 ANTIBIOTICS CLEARED FOR CARDIAC CATH FROM ID STANDPOINT
--- NOTE | 2018-10-20 18:39 | PN ---
Progress Note, Physician Chief Complaint: Chills Anemia ZHANG DM2 - Current Medication List Current Medications: Active Medications Acetaminophen (Tylenol -) 1,000 mg PO Q6H PRN PRN Reason: PAIN Last Admin: 10/19/18 06:54 Dose: 1,000 mg Allopurinol (Zyloprim -) 100 mg PO DAILY [facility] Last Admin: 10/20/18 10:02 Dose: 100 mg Apixaban (Eliquis -) 5 mg PO BID [facility] Last Admin: 10/20/18 10:02 Dose: 5 mg Atorvastatin Calcium (Lipitor -) 40 mg PO HS [facility] Last Admin: 10/19/18 22:02 Dose: 40 mg Clopidogrel Bisulfate (Plavix -) 75 mg PO DAILY [facility] Last Admin: 10/20/18 10:02 Dose: 75 mg Colchicine (Colcrys) 0.6 mg PO DAILY [facility] Last Admin: 10/20/18 10:02 Dose: 0.6 mg Gabapentin (Neurontin -) 300 mg PO BID [facility] Last Admin: 10/20/18 10:02 Dose: 300 mg Hydralazine HCl (Apresoline -) 10 mg PO BID PRN PRN Reason: HYPERTENSION Ceftriaxone Sodium 2 gm/ (Dextrose) 100 mls @ 100 mls/hr IVPB DAILY [facility]; Protocol Last Admin: 10/20/18 10:01 Dose: 100 mls/hr Insulin Aspart (Novolog Vial Sliding Scale -) 1 vial SQ ACHS [facility]; Protocol Last Admin: 10/20/18 17:52 Dose: Not Given Vitamin A/Vitamin D (Vitamin A & D Top Oint -) 1 applic TP BID PRN PRN Reason: WOUND CARE - Objective Vital Signs: Vital Signs Temperature 97.9 F 10/20/18 14:00 Pulse Rate 77 10/20/18 14:00 Respiratory Rate 20 10/20/18 14:00 Blood Pressure 139/65 10/20/18 14:00 O2 Sat by Pulse Oximetry (%) 98 10/20/18 09:00 Constitutional: Yes: Well Nourished, No Distress, Calm, Obese Cardiovascular: Yes: Regular Rate and Rhythm Respiratory: Yes: Regular Gastrointestinal: Yes: Normal Bowel Sounds, Soft Musculoskeletal: Yes: WNL Extremities: Yes: WNL Edema: Yes Edema: LLE: 1+, RLE: 1+ Peripheral Pulses WNL: Yes Neurological: Yes: Alert, Oriented Psychiatric: Yes: Alert, Oriented Labs: CBC, BMP 10/19/18 05:00 10/20/18 12:45 Problem List - Problems (1) Anemia Assessment/Plan: -H/H stable -no recent baseline values available -sec to CKD? -Iron profile normal -Stool ob + -Check thyroid+ B12 levels -GI consulted- no intervention at this time -Continue to monitor Code(s): D64.9 - ANEMIA, UNSPECIFIED (2) CAD (coronary artery disease) Assessment/Plan: -no chest pain at thsi time -EKG w/o ischemic changes -troponin moderately elevated on admission,trended down now -Cont home eliquis, plavix, statin -echo done this admission unremarkable -was planned for outpt stress due to chronic SOB on exertion, however elevated troponins here, hence invasive workup with cath being considered.-cleared by ID -Cardiology on board Code(s): I25.10 - ATHSCL HEART DISEASE OF [place] CORONARY ARTERY W/O ANG PCTRS (3) Diabetes Assessment/Plan: -Diabetic/low sodium diet -BGM AC HS -ISS -Recheck A1c Code(s): E11.9 - TYPE 2 DIABETES MELLITUS WITHOUT COMPLICATIONS Qualifiers: Diabetes mellitus type: type 2 Diabetes mellitus chcf insulin use: with chcf use Diabetes mellitus complication status: without complication Qualified Code(s): E11.9 - Type 2 diabetes mellitus without complications; Z79.4 - superintendent container terminal (current) use of insulin Assessment/Plan (1) Bacteremia Assessment/Plan: Microbiology 10/10/18 14:37 Blood - Peripheral Venous Blood Culture - Final Beta Hem Streptococcus Group C -IV abx -ID on board -Day 11 on rocephin, cleared for cardiac cath from ID standpoint -afebrile -repeat BC negative Code(s): R78.81 - BACTEREMIA (2) Leg edema Assessment/Plan: -On torsemide Code(s): R60.0 - LOCALIZED EDEMA (3) CKD (chronic kidney disease) Assessment/Plan: -Nephrology on board -Monitor Cr trend Code(s): N18.9 - CHRONIC KIDNEY DISEASE, UNSPECIFIED
[2018-10-20] MEDS: ATORVASTATIN CA 40 MG TABLET (FP) PO SCH (21:35)
[2018-10-21] MEDS: INSULIN SLIDING SCALE (NOVOLOG) 1 VIAL SQ SCH ×2 (06:09→11:48)
[2018-10-21 07:12] LABS: ALBUMIN 2.5 g/dl (3.4-5.0); BILIRUBIN,TOTAL 0.4 mg/dL (0.2-1); BLOOD UREA NITROGEN 63.5 mg/dL (7-18); CALCIUM 8.2 mg/dL (8.5-10.1); CREATININE 1.5 mg/dL (0.55-1.3); POTASSIUM 4.5 mmol/L (3.5-5.1); TOT PROT 6.3 g/dl (6.4-8.2)
[2018-10-21 07:35] LABS: BASO % 1.1 % (0-2.0); EOS % 5.5 % (0-4.5); HEMATOCRIT 28.6 % (35.4-49); HEMOGLOBIN 9.4 GM/dL (11.7-16.9); LYMPH % 53.8 % (8-40); MCH 28.3 pg (25.7-33.7); MEAN CELL VOLUME 85.7 fl (80-96); MEAN PLT VOLUME 9.6 fl (7.5-11.1); MONO % 19.4 % (3.8-10.2); NEUT % 20.2 % (42.8-82.8); PLATELET COUNT 260 K/MM3 (134-434); RBC 3.34 M/mm3 (4.00-5.60); RDW 18.3 % (11.9-15.9); WHITE BLOOD COUNT 3.7 K/mm3 (4.0-10.0)
[2018-10-21] MEDS ORDERED: DEXTROSE 5%-WATER 100 ML IVPB ONE (08:40)
--- NOTE | 2018-10-21 08:51 | DS ---
Physical Examination Vital Signs: Vital Signs Temperature 97.9 F 10/21/18 08:20 Pulse Rate 60 10/21/18 08:20 Respiratory Rate 18 10/21/18 08:24 Blood Pressure 132/48 L 10/21/18 08:20 O2 Sat by Pulse Oximetry (%) 96 10/21/18 08:24 Cardiovascular: Yes: S1, S2 Respiratory: Yes: Regular, CTA Bilaterally Gastrointestinal: Yes: Normal Bowel Sounds, Soft Labs: CBC, BMP 10/21/18 05:10 10/21/18 05:10 Discharge Summary Reason For Visit: CHEST PAIN/FEVER Current Active Problems Anemia (Acute) Bacteremia (Acute) Chest pain on exertion (Acute) Hyperkalemia (Acute) Leg edema (Acute) Morbid obesity with BMI of 50.0-59.9, adult (Acute) Pneumonia (Acute) Sepsis (Acute) Stasis dermatitis of both legs (Acute) T-cell large granular lymphocytic leukemia (Acute) Hospital Course: - Problems (1) Anemia Assessment/Plan: -H/H stable -no recent baseline values available -sec to CKD? -Iron profile normal -Stool ob + -Check thyroid+ B12 levels -GI consulted- no intervention at this time -Continue to monitor Code(s): D64.9 - ANEMIA, UNSPECIFIED (2) CAD (coronary artery disease) Assessment/Plan: -no chest pain at thsi time -EKG w/o ischemic changes -troponin moderately elevated on admission,trended down now -Cont home eliquis, plavix, statin -echo done this admission unremarkable -was planned for outpt stress due to chronic SOB on exertion, however elevated troponins here, hence invasive workup with cath being considered.-cleared by ID -Cardiology on board-- OUTPATIENT PER CARDIO Code(s): I25.10 - ATHSCL HEART DISEASE OF [place] CORONARY ARTERY W/O ANG PCTRS (3) Diabetes Assessment/Plan: -Diabetic/low sodium diet -BGM AC HS -ISS -Recheck A1c Code(s): E11.9 - TYPE 2 DIABETES MELLITUS WITHOUT COMPLICATIONS Qualifiers: Diabetes mellitus type: type 2 Diabetes mellitus intermediate designer insulin use: with senior living use Diabetes mellitus complication status: without complication Qualified Code(s): E11.9 - Type 2 diabetes mellitus without complications; Z79.4 - halfway (current) use of insulin Assessment/Plan (1) Bacteremia Assessment/Plan: Microbiology 10/10/18 14:37 Blood - Peripheral Venous Blood Culture - Final Beta Hem Streptococcus Group C -IV abx -ID on board -Day 11 on rocephin, cleared for cardiac cath from ID standpoint -afebrile -repeat BC negative Code(s): R78.81 - BACTEREMIA (2) Leg edema Assessment/Plan: -On torsemide Code(s): R60.0 - LOCALIZED EDEMA (3) CKD (chronic kidney disease) Assessment/Plan: -Nephrology on board -Monitor Cr trend Code(s): N18.9 - CHRONIC KIDNEY DISEASE, UNSPECIFIED Condition: Improved - Instructions Disposition: TRANSFER ACUTE CARE/OTHER HOSP - Home Medications Comprehensive Discharge Medication List: Ambulatory Orders Clopidogrel Bisulfate [Plavix -] 75 mg PO DAILY 05/17/16 Gabapentin 300 mg PO BID 05/17/16 Atorvastatin Ca [Lipitor] 40 mg PO DAILY 07/23/16 Apixaban [Eliquis -] 5 mg PO BID tablet 07/25/16 Colchicine 0.6 mg PO DAILY 12/02/16 Valsartan 160 mg PO DAILY 12/02/16 Allopurinol 100 mg PO DAILY 10/10/18 Meclizine HCl [Antivert -] 1 tab PO PRN 10/10/18 hydrALAZINE HCL [Apresoline -] 10 mg PO BID PRN #60 tablet 10/21/18
[2018-10-21] MEDS: ALLOPURINOL 100 MG TABLET (FP) PO SCH (09:57)
[2018-10-21] MEDS: APIXABAN 5 MG TABLET PO SCH (09:57)
[2018-10-21] MEDS: CLOPIDOGREL BISULFATE 75 MG TABLET (FP) PO SCH (09:57)
[2018-10-21] MEDS: GABAPENTIN 300 MG CAPSULE (FP) PO SCH (09:57)
[2018-10-21] MEDS: COLCHICINE 0.6 MG CAP PO SCH (09:57)
[2018-10-21] MEDS: CEFTRIAXONE 2 GM in DEXTROSE 5%-WATER 100 ML IVPB SCH (09:59)
--- NOTE | 2018-10-21 11:12 | PN ---
Progress Note, Physician History of Present Illness: Pt seen and examined at bedside. He is awake and alert. he denies shortness of breath. - Current Medication List Current Medications: Active Medications Acetaminophen (Tylenol -) 1,000 mg PO Q6H PRN PRN Reason: PAIN Last Admin: 10/19/18 06:54 Dose: 1,000 mg Allopurinol (Zyloprim -) 100 mg PO DAILY [facility] Last Admin: 10/21/18 09:57 Dose: 100 mg Apixaban (Eliquis -) 5 mg PO BID [facility] Last Admin: 10/21/18 09:57 Dose: 5 mg Atorvastatin Calcium (Lipitor -) 40 mg PO HS [facility] Last Admin: 10/20/18 21:35 Dose: 40 mg Clopidogrel Bisulfate (Plavix -) 75 mg PO DAILY [facility] Last Admin: 10/21/18 09:57 Dose: 75 mg Colchicine (Colcrys) 0.6 mg PO DAILY [facility] Last Admin: 10/21/18 09:57 Dose: 0.6 mg Gabapentin (Neurontin -) 300 mg PO BID [facility] Last Admin: 10/21/18 09:57 Dose: 300 mg Hydralazine HCl (Apresoline -) 10 mg PO BID PRN PRN Reason: HYPERTENSION Ceftriaxone Sodium 2 gm/ (Dextrose) 100 mls @ 100 mls/hr IVPB DAILY [facility]; Protocol Last Admin: 10/21/18 09:59 Dose: 100 mls/hr Insulin Aspart (Novolog Vial Sliding Scale -) 1 vial SQ ACHS [facility]; Protocol Last Admin: 10/21/18 06:09 Dose: Not Given Vitamin A/Vitamin D (Vitamin A & D Top Oint -) 1 applic TP BID PRN PRN Reason: WOUND CARE - Objective Vital Signs: Vital Signs Temperature 97.9 F 10/21/18 08:20 Pulse Rate 60 10/21/18 08:20 Respiratory Rate 18 10/21/18 08:24 Blood Pressure 132/48 L 10/21/18 08:20 O2 Sat by Pulse Oximetry (%) 96 10/21/18 08:24 Constitutional: Yes: Calm Eyes: Yes: Conjunctiva Clear HENT: Yes: Atraumatic Neck: Yes: Supple Cardiovascular: Yes: S1, S2 Respiratory: Yes: CTA Bilaterally Gastrointestinal: Yes: Soft, Abdomen, Obese Genitourinary: Yes: WNL Musculoskeletal: Yes: WNL Edema: Yes Edema: LLE: 2+, RLE: 2+ Integumentary: Yes: Venous Stasis Changes Neurological: Yes: Oriented Psychiatric: Yes: Oriented Labs: CBC, BMP 10/21/18 05:10 10/21/18 05:10 Problem List - Problems (1) Bacteremia Code(s): R78.81 - BACTEREMIA (2) Leg edema Code(s): R60.0 - LOCALIZED EDEMA (3) Sepsis Code(s): A41.9 - SEPSIS, UNSPECIFIED ORGANISM (4) ZHANG (acute kidney injury) Code(s): N17.9 - ACUTE KIDNEY FAILURE, UNSPECIFIED Assessment/Plan Current Medications Generic Name Dose Route Start Last Admin Trade Name Freq PRN Reason Stop Dose Admin Acetaminophen 1,000 mg 10/18/18 11:33 10/19/18 06:54 Tylenol - PO 1,000 mg Q6H PRN Administration PAIN Allopurinol 100 mg 10/17/18 16:45 10/21/18 09:57 Zyloprim - PO 100 mg DAILY JENNY Administration Apixaban 5 mg 10/10/18 22:15 10/21/18 09:57 Eliquis - PO 5 mg BID JENNY Administration Atorvastatin Calcium 40 mg 10/11/18 22:00 10/20/18 21:35 Lipitor - PO 40 mg HS JENNY Administration Clopidogrel Bisulfate 75 mg 10/11/18 10:00 10/21/18 09:57 Plavix - PO 75 mg DAILY JENNY Administration Colchicine 0.6 mg 10/17/18 11:30 10/21/18 09:57 Colcrys PO 0.6 mg DAILY JENNY Administration Gabapentin 300 mg 10/10/18 22:15 10/21/18 09:57 Neurontin - PO 300 mg BID JENNY Administration Hydralazine HCl 10 mg 10/15/18 14:09 Apresoline - PO BID PRN HYPERTENSION Ceftriaxone Sodium 2 gm/ 100 mls @ 100 mls/hr 10/11/18 15:00 10/21/18 09:59 Dextrose IVPB 100 mls/hr DAILY JENNY Administration Protocol Insulin Aspart 1 vial 10/14/18 11:00 10/21/18 06:09 Novolog Vial Sliding Scale - SQ Not Given ACHS JENNY Protocol Vitamin A/Vitamin D 1 applic 10/12/18 03:40 Vitamin A & D Top Oint - TP BID PRN WOUND CARE Impression 1. CKD 2. ZHANG 3. cellulitis 4. morbid obesity 5. DM 6. PVD 7. Gout 8. Large cell granular leukemia/lymphoma 9. anemia 10. bacteremia 11. leukopenia Plan - can restart diovan at lower dose - torsemide on hold for possible cath - ID input appreciated - pt and family understand risk of rafi with cath - avoid nsaids - cyclosporine on hold for leukopenia, oncology follow up for when to restart
[2018-10-21] MEDS ORDERED: VALSARTAN 80 MG TABLET (UD) PO SCH (11:15)
--- NOTE | 2018-10-21 12:02 | PN ---
Progress Note (short form) - Note Progress Note: s: no chest pain, palps, dizziness, dyspnea Current Medications Acetaminophen (Tylenol -) 1,000 mg PO Q6H PRN PRN Reason: PAIN Last Admin: 10/19/18 06:54 Dose: 1,000 mg Allopurinol (Zyloprim -) 100 mg PO DAILY [facility] Last Admin: 10/21/18 09:57 Dose: 100 mg Apixaban (Eliquis -) 5 mg PO BID [facility] Last Admin: 10/21/18 09:57 Dose: 5 mg Atorvastatin Calcium (Lipitor -) 40 mg PO HS [facility] Last Admin: 10/20/18 21:35 Dose: 40 mg Clopidogrel Bisulfate (Plavix -) 75 mg PO DAILY [facility] Last Admin: 10/21/18 09:57 Dose: 75 mg Colchicine (Colcrys) 0.6 mg PO DAILY [facility] Last Admin: 10/21/18 09:57 Dose: 0.6 mg Gabapentin (Neurontin -) 300 mg PO BID [facility] Last Admin: 10/21/18 09:57 Dose: 300 mg Hydralazine HCl (Apresoline -) 10 mg PO BID PRN PRN Reason: HYPERTENSION Ceftriaxone Sodium 2 gm/ (Dextrose) 100 mls @ 100 mls/hr IVPB DAILY [facility]; Protocol Last Admin: 10/21/18 09:59 Dose: 100 mls/hr Insulin Aspart (Novolog Vial Sliding Scale -) 1 vial SQ ACHS [facility]; Protocol Last Admin: 10/21/18 11:48 Dose: Not Given Valsartan (Diovan -) 80 mg PO DAILY [facility] Last Admin: 10/21/18 11:48 Dose: 80 mg Vitamin A/Vitamin D (Vitamin A & D Top Oint -) 1 applic TP BID PRN PRN Reason: WOUND CARE Vital Signs Period Temp Pulse Resp BP Sys/Reddy Pulse Ox Last 24 Hr 97.8 F-98.3 F 60-84 18-20 126-161/38-77 96-96 Constitutional: Yes: No Distress, Calm Eyes: No: Sclera Icterus HENT: No: Nasal Congestion Cardiovascular: Yes: Regular Rate and Rhythm, S1, S2, Other (PMI non diplaced). No: JVD, Gallop, Murmur Respiratory: Yes: CTA Bilaterally. No: Accessory Muscle Use, Rales, Wheezes Gastrointestinal: Yes: Normal Bowel Sounds, Soft. No: Tenderness Musculoskeletal: Yes: Other (No kyphosis) Extremities: No: Cold, Cyanosis Edema: No Integumentary: No: Jaundice Neurological: Yes: Alert, Oriented (x3) Psychiatric: No: Agitated Assessment/Plan tele: NSR with marked sinus arrhythmia and pauses < 3 sec Assessment/Plan a/p: 63 m hx cad s/p pci (10/2012 darryn to pLCx and dLCx, residual 30-50% in mRCA, pLAD, mLAD), dchf, venous insuff, morbid obesity, ckd, htn, hld, dm, pafib, dvt , foot ulcers, leukemia here with sepsis. strep bacteremia (group C), felt likely sec to cellulitis per ID: -on abx per ID - course of abx completed as of 10/20 -2nd set BCx's no growth to date paroxysmal Afib/sinus gabriela -controlled, off bb since had episode of gabriela in past -sinus here with sinus arrhythmia, pauses (< 3 sec) likely on this basis--cont tele (? hi resting vagal tone, obese--YUVAL?) -cont home eliquis CAD: -no chest pain sxs, ecg w/o ischemic changes -troponin moderately elevated on admit (2.9)--trended down. -most likely due to sepsis, does not appear to be acs, no clinical picture of acute coronary ischemia. -ont home eliquis, plavix, statin -echo here unremarkable -was planned for outpt stress due to chronic leong, however elevated tropnins here , hence invasive workup with cath being considered. -mult comorbidities weighing on risk/benefit of cath, and possibly prolonged DAPT course as below: - abx course completed, repeat bcx clear - stable from ID standpoint - per heme - no cytopenias, has done well from standpoint of leukemia, cardiac workup may proceed - pt with anemia and hemoccult+ stool, rectal bleeding episode - GI consulted, likely hemorrhoids. -ZHANG here, creat improving 1.5 today, cyclosporine held - d/[place] [facility], given multiple comorbidities, currently asymptomatic will defer angiogram to outpatient setting HFpEF/venous insuff/edema -restart torsemide, valsartan at reduced dose 80 mg daily -hi suspicion YUVAL--rec outpt PSG HTN -ARB restarted, monitor BP zhang on ckd -baseline 1.3 (06/28) -likely 2/2 sepsis and med effect--renal fxn improving steadily since cyclosporine, ARB and torsemide held -observe trend anemia: -hgb stable 8s-9s here -no recent baseline values available -? sec to CKD -iron low, iron sat low-nl range, ferritin normal - GI consulted
[2018-10-21] MEDS ORDERED: TORSEMIDE 100 MG TABLET PO SCH (12:03)
[2018-10-21 15:15] VITALS: BP 140/75; PULSE 85; TEMP 97.6
== END 2018-10-21 15:51 | disposition home or self-care (01) | DRG 872 ==
LOC: JER 13:56 → JERBED 21:26 → J4W 21:32 → UNDODISIN 10-19 16:43
PROVIDERS: ADMIT Family Medicine; ATTEND Family Medicine
DX: A40.8 Other streptococcal sepsis (principal); Z68.43 Body mass index [BMI] 50.0-59.9, adult; C91.Z0 Other lymphoid leukemia not having achieved remission; N17.9 Acute kidney failure, unspecified; I13.0 Hypertensive heart and chronic kidney disease with heart failure and stage 1 through stage 4 chronic kidney disease, or unspecified chronic kidney disease; L03.116 Cellulitis of left lower limb; I50.22 Chronic systolic (congestive) heart failure; E11.22 Type 2 diabetes mellitus with diabetic chronic kidney disease; E11.42 Type 2 diabetes mellitus with diabetic polyneuropathy; N18.9 Chronic kidney disease, unspecified; E66.01 Morbid (severe) obesity due to excess calories; E87.5 Hyperkalemia; I48.0 Paroxysmal atrial fibrillation; R00.1 Bradycardia, unspecified; I44.0 Atrioventricular block, first degree; D50.0 Iron deficiency anemia secondary to blood loss (chronic); I25.10 Atherosclerotic heart disease of native coronary artery without angina pectoris; Z79.4 Long term (current) use of insulin; M10.9 Gout, unspecified; Z79.02 Long term (current) use of antithrombotics/antiplatelets; Z95.5 Presence of coronary angioplasty implant and graft; E78.5 Hyperlipidemia, unspecified; Z89.422 Acquired absence of other left toe(s); I73.9 Peripheral vascular disease, unspecified; Z86.718 Personal history of other venous thrombosis and embolism; I87.2 Venous insufficiency (chronic) (peripheral); R07.9 Chest pain, unspecified; Z86.010 Personal history of colon polyps; K64.9 Unspecified hemorrhoids
CPT/HCPCS: 36415; 71045-TC-FY; 76775-TC; 80048; 80053; 81003; 82272; 82436; 82550; 82553; 82565; 82607; 82728; 82962; 83036; 83540; 83550; 83605; 83735; 83880; 84133; 84300; 84439; 84443; 84484; 84550; 85025; 85027; 87040; 87077; 87086; 87186; 87205; 87899; 93005; 93010; 93306-TC; 93308; 93970-TC; 94761; 99283-25; J0131; J7502

== ENCOUNTER 2018-11-13 06:17 | Inpatient (IN) | payer OTHER ==
[2018-11-13 06:57] LABS: BASO % 1.2 % (0-2.0); EOS % 7.3 % (0-4.5); HEMATOCRIT 30.4 % (35.4-49); LYMPH % 52.1 % (8-40); MCH 28.2 pg (25.7-33.7); MCHC 32.9 g/dl (32.0-35.9); MEAN CELL VOLUME 85.8 fl (80-96); MEAN PLT VOLUME 7.9 fl (7.5-11.1); MONO % 16.3 % (3.8-10.2); NEUT % 23.1 % (42.8-82.8); PLATELET COUNT 191 K/MM3 (134-434); RBC 3.54 M/mm3 (4.00-5.60); RDW 18.8 % (11.9-15.9); WHITE BLOOD COUNT 4.7 K/mm3 (4.0-10.0)
[2018-11-13 07:07] LABS: INR 1.43 (0.83-1.09); PROTHROMBIN TIME (PATIENT) 16.9 SEC (9.7-13.0)
[2018-11-13 07:25] LABS: ALBUMIN 2.7 g/dl (3.4-5.0); BILIRUBIN,TOTAL 0.4 mg/dL (0.2-1); BLOOD UREA NITROGEN 81.1 mg/dL (7-18); CALCIUM 7.3 mg/dL (8.5-10.1); CREATININE 6.2 mg/dL (0.55-1.3); POTASSIUM 5.3 mmol/L (3.5-5.1); TOT PROT 6.6 g/dl (6.4-8.2)
--- NOTE | 2018-11-13 08:23 | PDOC ---
History of Present Illness - General Chief Complaint: Palpitations Stated Complaint: CHEST PAIN Time Seen by Provider: 11/13/18 07:26 History Source: Patient Exam Limitations: No Limitations - History of Present Illness Initial Comments: Dashawn Aguilar is a 63 yo M w a hx of recent stenting last Friday at [facility] active leukemia (large granular t cell lymphoma), afib on eliquis, cardiac stenting x2 , CHF, HLD, and HTN who presents to the ER after he experienced chest pain, palpitations, diaphoresis, and generalized weakness this morning before coming to the hospital. The patient gave himself his daily dose of elliquis and then he came to the hospital because things did not feel right. He states he now feels well after taking his elliquis. He has no current chest pain. This morning he experienced sharp left shoulder and back pain and felt like his heart was palpitating for about an hour. The patient felt nauseous earlier today but did not experience emesis. PCP: Dr. Neil School Bus Attendant: Dr. Toribio - Dr. Downey covering Renal: Dr. Anderson Past History - Past Medical History Allergies/Adverse Reactions: Allergies Allergy/AdvReac Type Severity Reaction Status Date / Time No Known Drug Allergies Allergy Verified 11/13/18 06:26 Home Medications: Ambulatory Orders Clopidogrel Bisulfate [Plavix -] 75 mg PO DAILY 05/17/16 Gabapentin 300 mg PO BID 05/17/16 Atorvastatin Ca [Lipitor] 40 mg PO DAILY 07/23/16 Apixaban [Eliquis -] 5 mg PO BID tablet 07/25/16 Colchicine 0.6 mg PO DAILY 12/02/16 Meclizine HCl [Antivert -] 1 tab PO PRN 10/10/18 hydrALAZINE HCL [Apresoline -] 10 mg PO BID PRN #60 tablet 10/21/18 Allopurinol [Zyloprim -] 100 mg PO DAILY 11/13/18 Valsartan 80 mg PO DAILY 11/13/18 Anemia: Yes Asthma: No Cancer: Yes (Yes; leukemia Large granular t cell lymphoma) Cardiac Disorders: Yes (2 cardiac stents 2012; AFIB) CVA: No COPD: No CHF: Yes Dementia: No Diabetes: Yes (20 years ago IDDM) GI Disorders: No Disorders: No HTN: Yes Hypercholesterolemia: Yes Liver Disease: No Seizures: No Thyroid Disease: No - Surgical History Abdominal Surgery: No Appendectomy: No Cardiac Surgery: Yes (stents 2013) Cholecystectomy: No Lung Surgery: No Neurologic Surgery: No Orthopedic Surgery: Yes (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) - Immunization History Immunization Up to Date: No - Psycho Social/Smoking Cessation Hx Smoking Status: Yes Smoking History: Unknown if ever smoked Have you smoked in the past 12 months: No Number of Cigarettes Smoked Daily: 0 Hx Alcohol Use: No Drug/Substance Use Hx: No Substance Use Type: None Hx Substance Use Treatment: No Cardiac Specific PMH - Complaint Specific PMHX Pacemaker: No Peripheral Vascular Disease: Yes Review of Systems - Review of Systems Able to Perform ROS?: Yes Comments:: CONSTITUTIONAL: Present: Fatigue Absent: fever, no chills EYES: Absent: visual changes ENT: Absent: ear pain, no sore throat CARDIOVASCULAR: Present: Chest pain, palpitations, irregular heart rate, lightheadedness, peripheral edema Absent: syncope RESPIRATORY: Present: shortness of breath, dyspnea with exertion, orthopnea Absent: cough, wheezing, stridor, hemoptysis GI: Present: Nausea Absent: abdominal pain, no vomiting, no constipation, no diarrhea GENITOURINARY: Absent: dysuria, no frequency, no hematuria MUSKULOSKELETAL: Absent: back pain, no arthralgia, no myalgia SKIN: Absent: rash NEURO: Absent: headache *Physical Exam - Vital Signs Last Vital Signs Temp Pulse Resp BP Pulse Ox 98.1 F 86 18 109/55 L 98 11/13/18 10:15 11/13/18 10:15 11/13/18 10:15 11/13/18 10:15 11/13/18 10:15 - Physical Exam Comments: GENERAL: Well developed, well nourished. Awake and alert. No acute distress. HEENT: Normocephalic, atraumatic. PERRLA, EOMI. Moist mucous membranes. Oropharynx is clear. NECK: Supple. Full ROM. CARDIOVASCULAR: Irregularly irregular rate and rhythm. Distal pulses are 1+ and symmetric. PULMONARY: B/l crackles at the bases. No evidence of respiratory distress. No wheezing or rhonchi. ABDOMINAL: Soft. Non-tender. Non-distended. No rebound or guarding. No organomegaly. Normoactive bowel sounds. MUSCULOSKELETAL Normal range of motion at all joints. No bony deformities or tenderness. No CVA tenderness. EXTREMITIES: 1+ edema in both lower extremities. No cyanosis. No calf tenderness. SKIN: Warm and dry. Normal capillary refill. No rashes. No jaundice. NEUROLOGICAL: Alert, awake, appropriate. Cranial nerves 2-12 intact. No deficits to light touch in face, upper extremities and lower extremities. No motor deficits in the in face, upper extremities and lower extremities. Normal speech. Gait is normal without ataxia. PSYCHIATRIC: Cooperative. Good eye contact. Appropriate mood and affect. ED Treatment Course - LABORATORY CBC & Chemistry Diagram: 11/13/18 06:40 11/13/18 06:40 - ADDITIONAL ORDERS Additional order review: Laboratory Results 11/13/18 11/13/18 06:40 06:40 PT with INR 16.90 H INR 1.43 H Sodium 141 Potassium 5.3 H Chloride 114 H Carbon Dioxide 15 L Anion Gap 11 BUN 81.1 H Creatinine 6.2 H Est GFR (CKD-EPI)AfAm 10.25 Est GFR (CKD-EPI)NonAf 8.85 Random Glucose 158 H Calcium 7.3 L Total Bilirubin 0.4 AST 17 ALT 16 Alkaline Phosphatase 155 H Creatine Kinase 103 Troponin I 0.44 H Total Protein 6.6 Albumin 2.7 L 11/13/18 06:40 RBC 3.54 L MCV 85.8 MCHC 32.9 RDW 18.8 H MPV 7.9 D Neutrophils % 23.1 L Lymphocytes % 52.1 H Monocytes % 16.3 H Eosinophils % 7.3 H Basophils % 1.2 - Medications Given in the ED: ED Medications Discontinued Medications Generic Name Dose Route Start Last Admin Trade Name Lisbeth PRN Reason Stop Dose Admin Calcium Gluconate 1,000 mg 11/13/18 08:35 11/13/18 09:20 Calcium Gluconate 10% - IVPUSH 11/13/18 08:36 1,000 mg ONCE ONE Administration Dextrose 25 gm 11/13/18 08:43 11/13/18 09:20 D50w (Vial) - IVPUSH 11/13/18 08:44 25 gm NOW ONE Administration Insulin Human Regular 10 units 11/13/18 08:43 11/13/18 09:20 Novolin R Vial *For Ivpush Or Iv Drip Only* IVPUSH 11/13/18 08:44 10 units ONCE ONE Administration Sodium Zirconium Cyclosilicate 10 gm 11/13/18 08:34 11/13/18 09:44 Lokelma PO 11/13/18 08:35 Not Given ONCE ONE Sodium Zirconium Cyclosilicate 10 gm 11/13/18 09:17 11/13/18 09:30 Lokelma PO 11/13/18 09:18 10 gm NOW ONE Administration Medical Decision Making - Medical Decision Making Dashawn Aguilar is a 63 yo M w a hx of recent stenting last Friday at [facility] active leukemia (large granular t cell lymphoma), afib on eliquis, cardiac stenting x2 (most recent - 2012), CHF, HLD, and HTN who presents to the ER after he experienced chest pain, palpitations, diaphoresis, and generalized weakness this morning before coming to the hospital. The patient gave himself his daily dose of elliquis and then he came to the hospital because things did not feel right. He states he now feels well after taking his elliquis. He has no current chest pain. This morning he experienced sharp left shoulder and back pain and felt like his heart was palpitating for about an hour. The patient felt nauseous earlier today but did not experience emesis. Vital Signs Temp Pulse Resp BP Pulse Ox 98.1 F 71 22 H 123/74 95 11/13/18 07:59 11/13/18 07:59 11/13/18 07:59 11/13/18 07:59 11/13/18 07:59 MDM: Patient presents with chest pain, lightheadedness, generalized weakness and discomfort earlier this morning. He recently had a cardiac cath last Friday and now the patient presents with renal failure. The renal failure was likely caused by the contrast from the catherterization. I spoke with Dr. Neil, Dr. Anderson, and Dr. Downey who have all came and evaluated the patient and want this patient admitted to the ICU. He has not been producing urine so we are placing a cummings. We are going to do a bedside US to see if he is obstructed and/or has hydro. Patient is hyperkalemic with peaked T waves so we are giving calcium, insulin, glucose, and lokelma. Plan: Labs, Cummings, Bedside US, cardiac and renal consults, ICU consult for admission to hospital. CMP Sodium 141 mmol/L (136-145) 11/13/18 06:40 Potassium 5.3 mmol/L (3.5-5.1) H 11/13/18 06:40 Chloride 114 mmol/L (98-107) H 11/13/18 06:40 Carbon Dioxide 15 mmol/L (21-32) L 11/13/18 06:40 Anion Gap 11 MMOL/L (8-16) 11/13/18 06:40 BUN 81.1 mg/dL (7-18) H 11/13/18 06:40 Creatinine 6.2 mg/dL (0.55-1.3) H 11/13/18 06:40 Est GFR (CKD-EPI)AfAm 10.25 11/13/18 06:40 Est GFR (CKD-EPI)NonAf 8.85 11/13/18 06:40 Random Glucose 158 mg/dL (74-106) H 11/13/18 06:40 Calcium 7.3 mg/dL (8.5-10.1) L 11/13/18 06:40 Total Bilirubin 0.4 mg/dL (0.2-1) 11/13/18 06:40 AST 17 U/L (15-37) 11/13/18 06:40 ALT 16 U/L (13-61) 11/13/18 06:40 Alkaline Phosphatase 155 U/L (45-117) H 11/13/18 06:40 Creatine Kinase 103 U/L (26-308) 11/13/18 06:40 Troponin I 0.44 ng/ml (0.00-0.05) H 11/13/18 06:40 Total Protein 6.6 g/dl (6.4-8.2) 11/13/18 06:40 Albumin 2.7 g/dl (3.4-5.0) L 11/13/18 06:40 Discharge - Discharge Information Problems reviewed: Yes Clinical Impression/Diagnosis: Renal failure Qualifiers: Renal failure chronicity: acute Acute renal failure type: unspecified Qualified Code(s): N17.9 - Acute kidney failure, unspecified Condition: Guarded - Admission Yes - Follow up/Referral Referrals: Diomedes Neil MD [Primary Care Provider] - - Patient Discharge Instructions - Post Discharge Activity
[2018-11-13] MEDS ORDERED: SODIUM ZIRCONIUM CYCLOSILICATE (LOKELMA) 5 GM PACKET PO ONE ×2 (08:34→09:17)
[2018-11-13] MEDS ORDERED: CALCIUM GLUCONATE 10% - 1,000 MG/10 ML VIAL IVPUSH ONE ×2 (08:35→14:05)
[2018-11-13] MEDS ORDERED: INSULIN REGULAR HUMAN 100 UNITS/ML *VIAL IVPUSH ONE ×2 (08:43→14:04)
[2018-11-13] MEDS ORDERED: DEXTROSE 50%-WATER - 25 GM/50 ML VIAL IVPUSH ONE ×2 (08:43→14:04)
[2018-11-13] MEDS ORDERED: DEXTROSE 5%-NORMAL SALINE 1,000 ML IV SCH (09:00)
[2018-11-13] MEDS ORDERED: CALCIUM GLUCONATE 10% - 1,000 MG/10 ML VIAL ONE (09:12)
--- NOTE | 2018-11-13 09:12 | PDOC ---
Attending Attestation - Resident Resident Name: Steve Lopez - ED Attending Attestation I have performed the following: I have examined & evaluated the patient, The case was reviewed & discussed with the resident, I agree w/resident's findings & plan, Exceptions are as noted - HPI HPI: 11/13/18 09:05 63 yo male h/o lymphoma, htn hld obesity, cad, recent card cath 1 week ago, here today with exertional fatigue, sob, and racing heart beat. pt states he is feeling fatigued with any light exertion. has been taking torsemide, but had decreasing urine output over the last few days. no n/v no f/c no cough . no orthopnea. does have swelling around eyes. - Physicial Exam PE: 11/13/18 09:10 awake alert periorbital edema noted. lungs clear bilat heart rrr no mrg abd soft obese nontender. ext wwp. no edema. no calf tenderness. skin warm and dry. - Medical Decision Making 11/13/18 09:12 63 yo male h/o mult med problems chf htn afib lymphoma. recent cath here with fatigue, dyspenea decreasing urine output. differential anemia, effusion chf mi, renal faiulre. pt with acute renal failure creatinine of 6. will admit to medicine. d/w dr alcazar hedge trimmer here to see pt in ED d/w dr sahu. EKG with concerns for elevated T waves. given oral hypokalemic , and calcium insulin glucose. gentle hydration. cxr ordred. renal us pocus.
[2018-11-13] MEDS ORDERED: INSULIN REGULAR HUMAN 100 UNITS/ML *VIAL ONE (09:13)
[2018-11-13] MEDS ORDERED: DEXTROSE 50%-WATER 25 GM/50 ML DISP.SYRIN ONE (09:13)
--- NOTE | 2018-11-13 09:29 | CON.CARD ---
Consult Consult Specialty:: Cardiology Referred by:: MAXIMO DURBIN Reason for Consultation:: Abnl ECG - History of Present Illness Chief Complaint: Total body pain, weakness History of Present Illness: 63M CAD s/p PCI one week ago at [facility], CKD baseline creat 1.5-2, PAF, diastolic CHF presents to ER with decreased urination, weakness and total body aches. Found to be in ARF with creat 6 and ECG showing frequent APCs and peaked T waves. He has been taking Torsemide throughout the week. - History Source History Provided By: Patient - Past Medical History SURGICAL SERVICES MANAGER: Yes: Peripheral Neuropathy Cardio/Vascular: Yes: AFIB, CAD, CHF, HTN, Hyperlipdemia Gastrointestinal: Yes: GERD Renal/: Yes: Renal Inusuff, Other (gopal) Infectious Disease: Yes: Other (osteomyelitis of left fifth metartarsal 2011) Endocrine: Yes: Diabetes Mellitus Additional Medical History: morbid obesity - Past Surgical History Past Surgical History: Yes: Stent (X2) - Alcohol/Substance Use Hx Alcohol Use: No History of Substance Use: reports: None - Smoking History Smoking history: Unknown if ever smoked Have you smoked in the past 12 months: No Aproximately how many cigarettes per day: 0 - Social History Usual Living Arrangement: With Spouse ADL: Independent History of Recent Travel: No Home Medications - Allergies Allergies/Adverse Reactions: Allergies Allergy/AdvReac Type Severity Reaction Status Date / Time No Known Drug Allergies Allergy Verified 11/13/18 06:26 - Home Medications Home Medications: Ambulatory Orders Clopidogrel Bisulfate [Plavix -] 75 mg PO DAILY 05/17/16 Gabapentin 300 mg PO BID 05/17/16 Atorvastatin Ca [Lipitor] 40 mg PO DAILY 07/23/16 Apixaban [Eliquis -] 5 mg PO BID tablet 07/25/16 Colchicine 0.6 mg PO DAILY 12/02/16 Meclizine HCl [Antivert -] 1 tab PO PRN 10/10/18 hydrALAZINE HCL [Apresoline -] 10 mg PO BID PRN #60 tablet 10/21/18 Allopurinol [Zyloprim -] 100 mg PO DAILY 11/13/18 Valsartan 80 mg PO DAILY 11/13/18 Family Medical History Family History: Unremarkable Review of Systems Findings/Remarks: see HPI - Review of Systems Constitutional: reports: Lethargy, Malaise Eyes: reports: No Symptoms HENT: reports: No Symptoms Neck: reports: No Symptoms Cardiovascular: reports: Palpitations, Shortness of Breath Respiratory: reports: No Symptoms Gastrointestinal: reports: No Symptoms Genitourinary: reports: No Symptoms Breasts: reports: No Symptoms Reported Musculoskeletal: reports: Muscle Pain, Muscle Weakness Integumentary: denies: No Symptoms, Blister, Bruising, Change in Color, Eczema, Erythema, Incision, Lesions, Lump, Pallor, Pruritis, Rash, Wound, Other Neurological: denies: No Symptoms, Change in LOC, Change in Speech, Confusion, Dizziness, Headache, Incoordination, Numbness, Parasthesia, Pre-Existing Deficit , Seizure, Syncope, Tremors, Unsteady Gait, Weakness, Other Endocrine: denies: No Symptoms, Excessive Sweating, Flushing, Increased Hunger, Increased Thirst, Intolerance to Cold, Intolerance to Heat, Unexplained Weight Gain, Unexplained Weight Loss, Other Hematology/Lymphatic: denies: No Symptoms, Easily Bruised, Excessive Bleeding, Swollen Glands, Other Psychiatric: denies: No Symptoms, Altered Sleep Pattern, Anxiety, Depression, Hallucinations, Panic, Paranoia, Suicidal, Other - Risk Factors Known Risk Factors: Yes: Diabetes Mellitus, Other (known CAD) Vital Signs: Vital Signs Temperature 98.1 F 11/13/18 07:59 Pulse Rate 71 11/13/18 07:59 Respiratory Rate 22 H 11/13/18 07:59 Blood Pressure 123/74 11/13/18 07:59 O2 Sat by Pulse Oximetry (%) 95 11/13/18 07:59 Constitutional: Yes: No Distress Eyes: Yes: Conjunctiva Clear Respiratory: Yes: CTA Bilaterally Gastrointestinal: Yes: Soft, Abdomen, Obese Cardiovascular: Yes: Pulse Irregular JVD: No Carotid Bruit: No Heart Sounds: Yes: S1, S2 (irreg) Edema: Yes Edema: LLE: 1+, RLE: 1+ Neurological: Yes: Alert, Oriented - Other Data Labs, Other Data: CBC, BMP 11/13/18 06:40 11/13/18 06:40 INR, PTT INR 1.43 (0.83-1.09) H 11/13/18 06:40 Troponin, BNP 11/13/18 06:40 Troponin I 0.44 H Troponin, BNP 10/04/19 06:40 Troponin I 0.44 H Laboratory Tests 11/13/18 11/13/18 11/13/18 06:40 06:40 06:40 WBC 4.7 Hgb 10.0 L Plt Count 191 D INR 1.43 H Sodium 141 Potassium 5.3 H BUN 81.1 H Creatinine 6.2 H Alkaline Phosphatase 155 H Troponin I 0.44 H Albumin 2.7 L NSR, 1st degree AVB, APCs, Peaked T waves Prior Cardiac Procedures: PTCA with Stent Ejection Fraction %: LVEF > or = 40 % Imaging - Results Chest X-ray: Image Reviewed EKG: Image Reviewed Assessment/Plan IMP: Acute renal failure, likely contrast induced, hyperK+ with ECG changes CAD s/p PCI one week ago PAF on NOAC Chronic Diastolic CHF PAF REC: 1. Case d/w Dr. Anderson and ER . -Reece/renal US/K+ binder/ Insulin and glucose infusion. Admit to ICU. 2. Close f/u of lytes, GFR with daily labs, strict IS/Os 3. Telemetry in ICU 4. Continue ASA/Plavix (PCI one week ago). 5. Continue AC, may be better to use UFH gtts while in ARF and transition back to NOAC once GFR stable vs dose adjusted Cory
--- NOTE | 2018-11-13 11:27 | CONSULT ---
Consultation: REQUESTING PROVIDER: CONSULT REQUEST: We have been asked to medically evaluate this patient for renal failure and ICU level care. HISTORY OF PRESENT ILLNESS: Mr. Aguilar is a 63 y/o male with PMH of HTN,DM,afib,CAD S/p cardiac stent 1 week ago presents today complaining of heart palpitations, weakness and swelling for 5 days. The patient states he began feeling weak and having palpitations 2 days after his stent placement that have become progressively worse. He also reports decreased urine out put despite Tosimide , numbness in his Left arm , 10 lb weight gain in 2 days and dry mouth. He denies abdominal pain, shortness of breath, n/v and fever. The patient was evaluated for ICU care for renal failure, likely contrast- induced nephropathy. PMH: HTN, leukemia, DM,CAD, stent, afib SurgHx: stents (in 2012 and 1 week ago), 2nd left toe amputation FamHx: PA , DM Social: denies smoking, ETOH use and illicit drug use REVIEW OF SYSTEMS: CONSTITUTIONAL: generalized weakness, malaise, increased weight Absent: fever, chills, diaphoresis, loss of appetite HEENT: Absent: rhinorrhea, nasal congestion, throat pain, throat swelling, difficulty swallowing, mouth swelling, ear pain, eye pain, visual changes CARDIOVASCULAR: palpitations, irregular heart rate, lightheadedness, peripheral edema Absent: chest pain, syncope RESPIRATORY: dyspnea on exertion Absent: cough, shortness of breath, orthopnea, wheezing, stridor, hemoptysis GASTROINTESTINAL: abdominal distension Absent: abdominal pain, nausea, vomiting, diarrhea, constipation, melena, hematochezia GENITOURINARY: decreased urine output Absent: dysuria, frequency, urgency, hesitancy, hematuria, flank pain, genital pain MUSCULOSKELETAL: Absent: myalgia, arthralgia, joint swelling, back pain, neck pain SKIN: Absent: rash, itching, pallor HEMATOLOGIC/IMMUNOLOGIC: Absent: easy bleeding, easy bruising, lymphadenopathy, frequent infections ENDOCRINE: Absent: heat intolerance, cold intolerance NEUROLOGIC: dizziness Absent: headache, focal weakness or paresthesias, unsteady gait, seizure, mental status changes, bladder or bowel incontinence PSYCHIATRIC: Absent: anxiety, depression, suicidal or homicidal ideation, hallucinations. PHYSICAL EXAMINATION Vital Signs - 24 hr 11/13/18 11/13/18 11/13/18 06:32 07:59 10:00 Temperature 98.3 F 98.1 F 98 F Pulse Rate 93 H Pulse Rate [ 71 88 Left Radial] Respiratory 20 22 H 27 H Rate Blood Pressure 106/41 L Blood Pressure 123/74 109/54 L [Right Arm] O2 Sat by Pulse 99 95 97 Oximetry (%) 11/13/18 10:15 Temperature 98.1 F Pulse Rate Pulse Rate [ 86 Left Radial] Respiratory 18 Rate Blood Pressure Blood Pressure 109/55 L [Right Arm] O2 Sat by Pulse 98 Oximetry (%) GENERAL: Awake, alert, and fully oriented, in no acute distress. HEAD: Normal with no signs of trauma. EYES: Pupils equal, round and reactive to light, extraocular movements intact, sclera anicteric, conjunctiva clear. No lid lag. EARS, NOSE, THROAT: Ears normal, nares patent, oropharynx clear without exudates. Moist mucous membranes. NECK: Normal range of motion, supple without lymphadenopathy, JVD, or masses. LUNGS: Breath sounds equal, clear to auscultation bilaterally. No wheezes, and no crackles. No accessory muscle use. HEART: Regular rate and rhythm, normal S1 and S2 without murmur, rub or gallop. ABDOMEN: Soft, nontender, distended, no guarding, no rebound, no masses. No hepatomegaly or splenomegaly. MUSCULOSKELETAL: Normal range of motion at all joints. No bony deformities or tenderness. No CVA tenderness. UPPER EXTREMITIES: 2+ pulses, warm, well-perfused. No cyanosis. No clubbing. Cap refill <2 seconds. No peripheral edema. LOWER EXTREMITIES: 2+ pulses, warm, well-perfused. 4+ pitting edema bilaterally. NEUROLOGICAL: Cranial nerves II-XII intact. Normal speech. PSYCHIATRIC: Cooperative. Good eye contact. Appropriate mood and affect. SKIN: Warm, dry, normal turgor, no rashes or lesions noted. Laboratory Results - last 24 hr 11/13/18 11/13/18 11/13/18 06:40 06:40 06:40 WBC 4.7 RBC 3.54 L Hgb 10.0 L Hct 30.4 L MCV 85.8 MCH 28.2 MCHC 32.9 RDW 18.8 H Plt Count 191 D MPV 7.9 D Absolute Neuts (auto) 1.1 L Neutrophils % 23.1 L Lymphocytes % 52.1 H Monocytes % 16.3 H Eosinophils % 7.3 H Basophils % 1.2 Nucleated RBC % 0 PT with INR 16.90 H INR 1.43 H Sodium 141 Potassium 5.3 H Chloride 114 H Carbon Dioxide 15 L Anion Gap 11 BUN 81.1 H Creatinine 6.2 H Est GFR (CKD-EPI)AfAm 10.25 Est GFR (CKD-EPI)NonAf 8.85 Random Glucose 158 H Calcium 7.3 L Total Bilirubin 0.4 AST 17 ALT 16 Alkaline Phosphatase 155 H Creatine Kinase 103 Troponin I 0.44 H Total Protein 6.6 Albumin 2.7 L Active Medications Generic Name Dose Route Start Last Admin Trade Name Freq PRN Reason Stop Dose Admin Dextrose/Sodium Chloride 1,000 mls @ 42 mls/hr 11/13/18 09:00 11/13/18 09:20 D5-Ns - IV 42 mls/hr ASDIR JENNY Administration ASSESSMENT/PLAN: Plavix Cardiac meds as ordered #Renal - [facility] -received contrast for stents 1 week ago -Cr 6.2, rpt 2.5 -hyperkalemia 5.5, Dr. 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 Downey Dispo: continue ICU care Visit type - Emergency Visit Emergency Visit: Yes ED Registration Date: 11/13/18 Care time: The patient presented to the Emergency Department on the above date and was hospitalized for further evaluation of their emergent condition. - New Patient This patient is new to me today: Yes Date on this admission: 11/13/18 - Critical Care Critical Care patient: Yes Total Critical Care Time (in minutes): 35 Critical Care Statement: The care of this patient involved high complexity decision making to prevent further life threatening deterioration of the patient 's condition and/or to evaluate & treat vital organ system(s) failure or risk of failure. ATTENDING PHYSICIAN STATEMENT I saw and evaluated the patient. I reviewed the resident's note and discussed the case with the resident. I agree with the resident's findings and plan as documented. SUBJECTIVE: OBJECTIVE: ASSESSMENT AND PLAN:
[2018-11-13 11:38] LABS: MAGNESIUM 2.5 mg/dL (1.8-2.4)
--- NOTE | 2018-11-13 11:45 | HP ---
Admitting History and Physical - Primary Care Physician PCP: Diomedes Niel - Admission Chief Complaint: WEAKNESS/HEADACHE FOUND TO BE IN ACUTE RENAL FAILURE History of Present Illness: S/P CARDIAC CATH THIS WEEK AND DEVELOPED WEAKNESS WITH TACHYCARDIA THIS MORNING CAME TO ED WITH HIS FOUND TO HAVE ACUTE RENAL FAILURE CREATININE 6. H/O MORBID OBESITY, HTN, DM, GOUT, LIPIDEMIA, CAD S/P CARDIAC CATH WITH STENT THIS WEEK. VENOUS INSUFFICIENCY AND LEG EDEMA. 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: Peripheral Neuropathy Cardiovascular: Yes: AFIB, CAD, CHF, HTN, Hyperlipdemia Gastrointestinal: Yes: GERD Renal/: Yes: Renal Inusuff, Other (zhang) Heme/Onc: Yes: Anemia Infectious Disease: Yes: Other (osteomyelitis of left fifth metartarsal 2011) Endocrine: Yes: Diabetes Mellitus - Past Surgical History Past Surgical History: Yes: Stent (X2) - Smoking History Smoking history: Unknown if ever smoked Have you smoked in the past 12 months: No Aproximately how many cigarettes per day: 0 - Alcohol/Substance Use Hx Alcohol Use: No History of Substance Use: reports: None - Social History ADL: Independent History of Recent Travel: No Home Medications - Allergies Allergies/Adverse Reactions: Allergies Allergy/AdvReac Type Severity Reaction Status Date / Time No Known Drug Allergies Allergy Verified 11/13/18 06:26 - Home Medications Home Medications: Ambulatory Orders Clopidogrel Bisulfate [Plavix -] 75 mg PO DAILY 05/17/16 Gabapentin 300 mg PO BID 05/17/16 Atorvastatin Ca [Lipitor] 40 mg PO DAILY 07/23/16 Apixaban [Eliquis -] 5 mg PO BID tablet 07/25/16 Colchicine 0.6 mg PO DAILY 12/02/16 Meclizine HCl [Antivert -] 1 tab PO PRN 10/10/18 hydrALAZINE HCL [Apresoline -] 10 mg PO BID PRN #60 tablet 10/21/18 Allopurinol [Zyloprim -] 100 mg PO DAILY 11/13/18 Valsartan 80 mg PO DAILY 11/13/18 Review of Systems - Review of Systems Constitutional: reports: Lethargy, Loss of Appetite, Malaise, Weakness Eyes: reports: No Symptoms HENT: reports: No Symptoms Neck: reports: No Symptoms Cardiovascular: reports: Palpitations Respiratory: reports: No Symptoms Gastrointestinal: reports: Nausea Genitourinary: reports: No Symptoms Musculoskeletal: reports: Muscle Weakness Integumentary: reports: Rash Neurological: reports: Confusion, Dizziness, Weakness Hematology/Lymphatic: reports: No Symptoms Psychiatric: reports: No Symptoms Physical Examination Vital Signs: Vital Signs Temperature 98.1 F 11/13/18 10:15 Pulse Rate 86 11/13/18 10:15 Respiratory Rate 18 11/13/18 10:15 Blood Pressure 109/55 L 11/13/18 10:15 O2 Sat by Pulse Oximetry (%) 98 11/13/18 10:15 Constitutional: Yes: Moderate Distress Eyes: Yes: WNL HENT: Yes: WNL Neck: Yes: WNL Cardiovascular: Yes: Regular Rate and Rhythm Respiratory: Yes: WNL Gastrointestinal: Yes: Soft, Abdomen, Obese Musculoskeletal: Yes: Muscle Weakness Edema: Yes Edema: LLE: 3+, RLE: 3+ Integumentary: Yes: Pressure Ulcer, Venous Stasis Changes Wound/Incision: Yes: Open to air Neurological: Yes: WNL ...Motor Strength: LLE, RLE Psychiatric: Yes: WNL Labs: CBC, BMP 11/13/18 06:40 11/13/18 06:40 Imaging - Results Ultrasound: Report Reviewed Problem List - Problems (1) Renal failure Code(s): N19 - UNSPECIFIED KIDNEY FAILURE Qualifiers: Renal failure chronicity: acute Acute renal failure type: unspecified Qualified Code(s): N17.9 - Acute kidney failure, unspecified (2) ZHANG (acute kidney injury) Code(s): N17.9 - ACUTE KIDNEY FAILURE, UNSPECIFIED (3) Afib Code(s): I48.91 - UNSPECIFIED ATRIAL FIBRILLATION Qualifiers: Atrial fibrillation type: unspecified Qualified Code(s): I48.91 - Unspecified atrial fibrillation (4) Anemia Code(s): D64.9 - ANEMIA, UNSPECIFIED (5) CAD (coronary artery disease) Code(s): I25.10 - ATHSCL HEART DISEASE OF [place] CORONARY ARTERY W/O ANG PCTRS (6) Diabetes Code(s): E11.9 - TYPE 2 DIABETES MELLITUS WITHOUT COMPLICATIONS Qualifiers: Diabetes mellitus type: type 2 Diabetes mellitus terminal system operator insulin use: with terminal system operator use Diabetes mellitus complication status: without complication Qualified Code(s): E11.9 - Type 2 diabetes mellitus without complications; Z79.4 - senior care (current) use of insulin (7) Gout Code(s): M10.9 - GOUT, UNSPECIFIED Qualifiers: Gout site: foot Assessment/Plan PLACE IN ICU IVF FOR RENAL FAILURE I DISCUSSED POSSIBLE DIALYSIS IF NEEDED PATIENT AND FAMILY ARE IN AGREEMENT TO HD IF NEEDED. HOLD ALL NEPHROTOXIC DRUGS ARF LIKELY FROM CARDIAC CATH CONTRAST. BED REST DVT PROPHYLAXIS ICU TEAM EVAL PENDING RENAL SONO NO HYDRONEPHROSIS
[2018-11-13] MEDS ORDERED: ACETAMINOPHEN 325 MG TABLET (FP) PO PRN (11:47)
[2018-11-13] MEDS ORDERED: ONDANSETRON *ODT* 4 MG TABLET SL PRN (11:47)
[2018-11-13 11:53] LABS: URINE APPEARANCE CLOUDY; URINE BILIRUBIN NEGATIVE (NEGATIVE); URINE COLOR DK YELLOW; URINE GLUCOSE (UA) NEGATIVE (NEGATIVE); URINE KETONE TRACE (NEGATIVE); URINE LEUK ESTERASE NEGATIVE (NEGATIVE); URINE NITRITE NEGATIVE (NEGATIVE); URINE PROTEIN 2+ (NEGATIVE); URINE UROBILINOGEN 0.2 mg/dL (0.2-1.0)
--- NOTE | 2018-11-13 12:12 | EKG ---
Test Reason : Blood Pressure : / mmHG Vent. Rate : 067 BPM Atrial Rate : 060 BPM P-R Int : 000 ms QRS Dur : 134 ms QT Int : 432 ms P-R-T Axes : 000 -59 083 degrees QTc Int : 456 ms ATRIAL FIBRILLATION WITH A COMPETING JUNCTIONAL PACEMAKER LEFT AXIS DEVIATION NON-SPECIFIC INTRA-VENTRICULAR CONDUCTION BLOCK ABNORMAL ECG WHEN COMPARED WITH ECG OF 12-OCT-2018 20:35, ATRIAL FIBRILLATION HAS REPLACED SINUS RHYTHM QUESTIONABLE CHANGE IN QRS DURATION CRITERIA FOR INFERIOR INFARCT ARE NO LONGER PRESENT Confirmed by ROSANA CARVAJAL MD ([id number]) on 11/13/2018 12:11:58 PM Referred By: Confirmed By:ROSANA CARVAJAL MD
[2018-11-13 12:27] LABS: URINE WBC 0-2 /hpf (0-5)
[2018-11-13 12:28] LABS: EPI CELLS 1+ /HPF (0-5/HPF); HYALINE CASTS 0-1 /lpf (0-8); URINE BACTERIA 2+ /hpf (NEGATIVE)
[2018-11-13 12:37] LABS: CALCIUM 7.5 mg/dL (8.5-10.1); CREATININE 2.5 mg/dL (0.55-1.3); POTASSIUM 5.5 mmol/L (3.5-5.1)
[2018-11-13] MEDS ORDERED: ATROPINE SULFATE 1 MG/10 ML DISP.SYRIN ONE (13:28)
--- NOTE | 2018-11-13 13:29 | CONSULT ---
Consult Consult Specialty:: Nephrology Reason for Consultation:: ZHANG - History of Present Illness Chief Complaint: decreased urine output History of Present Illness: Pt is a 63 year old male with pmhx of ckd, htn, chf, obesity and cad who presents with fatigue and malaise. He also complains of decreased urine output. He had a cardiac cath about a week ago. He noticed that he had decreased urine output a few days later. Cath was using the radial art approach and the pt did get a stent. He was also on torsemide. He is on an arb and cyclosporine as well. 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: Peripheral Neuropathy Cardio/Vascular: Yes: AFIB, CAD, CHF, HTN, Hyperlipdemia Gastrointestinal: Yes: GERD Renal/: Yes: Renal Inusuff, Other (zhang) Infectious Disease: Yes: Other (osteomyelitis of left fifth metartarsal 2011) Endocrine: Yes: Diabetes Mellitus Additional Medical History: morbid obesity - Past Surgical History Past Surgical History: Yes: Stent (X2) - Alcohol/Substance Use Hx Alcohol Use: No History of Substance Use: reports: None - Smoking History Smoking history: Unknown if ever smoked Have you smoked in the past 12 months: No Aproximately how many cigarettes per day: 0 - Social History Usual Living Arrangement: With Spouse ADL: Independent History of Recent Travel: No Home Medications - Allergies Allergies/Adverse Reactions: Allergies Allergy/AdvReac Type Severity Reaction Status Date / Time No Known Drug Allergies Allergy Verified 11/13/18 06:26 - Home Medications Home Medications: Ambulatory Orders Clopidogrel Bisulfate [Plavix -] 75 mg PO DAILY 05/17/16 Gabapentin 300 mg PO BID 05/17/16 Atorvastatin Ca [Lipitor] 40 mg PO DAILY 07/23/16 Apixaban [Eliquis -] 5 mg PO BID tablet 07/25/16 Colchicine 0.6 mg PO DAILY 12/02/16 Meclizine HCl [Antivert -] 1 tab PO PRN 10/10/18 hydrALAZINE HCL [Apresoline -] 10 mg PO BID PRN #60 tablet 10/21/18 Allopurinol [Zyloprim -] 100 mg PO DAILY 11/13/18 Valsartan 80 mg PO DAILY 11/13/18 Family Medical History Family Hx Cardiac Disorders: Brother Review of Systems - Review of Systems Constitutional: reports: No Symptoms Eyes: reports: No Symptoms HENT: reports: No Symptoms Neck: reports: No Symptoms Cardiovascular: reports: Edema Respiratory: reports: No Symptoms Gastrointestinal: reports: No Symptoms Musculoskeletal: reports: Muscle Weakness Integumentary: reports: No Symptoms Endocrine: reports: No Symptoms Hematology/Lymphatic: reports: No Symptoms Psychiatric: reports: No Symptoms Physical Exam Vital Signs: Vital Signs Temperature 98.6 F 11/13/18 12:16 Pulse Rate 86 11/13/18 12:16 Respiratory Rate 20 11/13/18 12:16 Blood Pressure 114/59 L 11/13/18 12:16 O2 Sat by Pulse Oximetry (%) 98 11/13/18 10:15 Constitutional: Yes: Calm Eyes: Yes: Conjunctiva Clear HENT: Yes: Atraumatic Neck: Yes: Supple Cardiovascular: Yes: S1, S2 Respiratory: Yes: CTA Bilaterally Gastrointestinal: Yes: Soft, Abdomen, Obese Renal/: Yes: WNL Musculoskeletal: Yes: WNL Edema: Yes Edema: LLE: 1+, RLE: 1+ Neurological: Yes: Oriented Psychiatric: Yes: Oriented Labs: CBC, BMP 11/13/18 06:40 11/13/18 11:42 Laboratory Tests 10/20/18 10/21/18 11/13/18 12:45 05:10 06:40 Hgb 10.0 L Potassium Carbon Dioxide Creatinine 1.4 H 1.5 H Ur Random Sodium 11/13/18 11/13/18 11/13/18 06:40 11:11 11:42 Hgb Potassium 5.3 H 5.5 H Carbon Dioxide 21 Creatinine 6.2 H 2.5 H Ur Random Sodium 22 L Imaging - Results Chest X-ray: Report Reviewed Problem List - Problems (1) Renal failure Code(s): N19 - UNSPECIFIED KIDNEY FAILURE Qualifiers: Renal failure chronicity: acute Acute renal failure type: unspecified Qualified Code(s): N17.9 - Acute kidney failure, unspecified (2) ZHANG (acute kidney injury) Code(s): N17.9 - ACUTE KIDNEY FAILURE, UNSPECIFIED (3) CHF (congestive heart failure) Code(s): I50.9 - HEART FAILURE, UNSPECIFIED Qualifiers: Heart failure chronicity: chronic congestive heart failure (4) CKD (chronic kidney disease) Code(s): N18.9 - CHRONIC KIDNEY DISEASE, UNSPECIFIED Assessment/Plan Current Medications Generic Name Dose Route Start Last Admin Trade Name Freq PRN Reason Stop Dose Admin Acetaminophen 650 mg 11/13/18 11:47 Tylenol - PO Q6H PRN PAIN OR FEVER Clopidogrel Bisulfate 75 mg 11/14/18 10:00 Plavix - PO DAILY JENNY Dextrose/Sodium Chloride 1,000 mls @ 42 mls/hr 11/13/18 09:00 11/13/18 09:20 D5-Ns - IV 42 mls/hr ASDIR JENNY Administration Insulin Aspart 1 vial 11/13/18 16:30 Novolog Vial Sliding Scale - SQ ACHS JENNY Protocol Ondansetron HCl 4 mg 11/13/18 11:47 Zofran Odt - SL Q6H PRN NAUSEA AND/OR VOMITING Impression 1. CKD 2. ZHANG 3. s/p cardiac stent 4. morbid obesity 5. DM 6. PVD 7. Gout 8. Large cell granular leukemia/lymphoma 9. anemia 10. hyperkalemia Plan - arb on hold - cyclosporin on hold for now, can restart tomorrow - change fluids to 1/2 ns - treat potassium medically again - monitor on tele - discussed with ER - repeat labs shows an improvement in group exercise instructor - discussed with ICU team - avoid nsaids
--- NOTE | 2018-11-13 13:31 | PN ---
Teaching Attending Note Name of Resident: Leighton Yoder ATTENDING PHYSICIAN STATEMENT I saw and evaluated the patient. I reviewed the resident's note and discussed the case with the resident. I agree with the resident's findings and plan as documented. SUBJECTIVE: Patient seen and examined in the ICU. Awake and alert. Reports some mild CP this AM but now has resolved. S/P stent about 1 week ago. [place] dizziness and "unsteady" this AM. After cummings inserted had urine output. Poor oral intake for the past few days. (+) nausea and vomiting Intake & Output 11/10/18 11/11/18 11/12/18 11/13/18 23:59 23:59 23:59 23:59 Intake Total 384 Output Total 70 Balance 314 Weight 329 lb Last Vital Signs Temp Pulse Resp BP Pulse Ox 98.6 F 86 20 114/59 L 98 11/13/18 12:16 11/13/18 12:16 11/13/18 12:16 11/13/18 12:16 11/13/18 10:15 Active Medications Acetaminophen (Tylenol -) 650 mg PO Q6H PRN PRN Reason: PAIN OR FEVER Clopidogrel Bisulfate (Plavix -) 75 mg PO DAILY [facility] Dextrose/Sodium Chloride (D5-Ns -) 1,000 mls @ 42 mls/hr IV ASDIR JENNY Last Admin: 11/13/18 09:20 Dose: 42 mls/hr Insulin Aspart (Novolog Vial Sliding Scale -) 1 vial SQ ACHS [facility]; Protocol Ondansetron HCl (Zofran Odt -) 4 mg SL Q6H PRN PRN Reason: NAUSEA AND/OR VOMITING GENERAL: Awake, alert, and fully oriented, in no acute distress. HEAD: Normal with no signs of trauma. EYES: Pupils equal, round and reactive to light, extraocular movements intact, sclera anicteric, conjunctiva clear. No lid lag. EARS, NOSE, THROAT: Ears normal, nares patent, oropharynx clear without exudates. Moist mucous membranes. NECK: Normal range of motion, supple without lymphadenopathy, JVD, or masses. LUNGS: Breath sounds equal, clear to auscultation bilaterally. No wheezes, and no crackles. No accessory muscle use. HEART: Regular rate and rhythm, normal S1 and S2 without murmur, rub or gallop. ABDOMEN: Soft, nontender, distended, no guarding, no rebound, no masses. No hepatomegaly or splenomegaly. MUSCULOSKELETAL: Normal range of motion at all joints. No bony deformities or tenderness. No CVA tenderness. UPPER EXTREMITIES: 2+ pulses, warm, well-perfused. No cyanosis. No clubbing. Cap refill <2 seconds. No peripheral edema. LOWER EXTREMITIES: 2+ pulses, warm, well-perfused. 4+ pitting edema bilaterally. NEUROLOGICAL: Non-focal PSYCHIATRIC: Cooperative. Good eye contact. Appropriate mood and affect. SKIN: Warm, dry, normal turgor, no rashes or lesions noted. Laboratory Results - last 24 hr 11/13/18 11/13/18 11/13/18 06:40 06:40 06:40 WBC 4.7 RBC 3.54 L Hgb 10.0 L Hct 30.4 L MCV 85.8 MCH 28.2 MCHC 32.9 RDW 18.8 H Plt Count 191 D MPV 7.9 D Absolute Neuts (auto) 1.1 L Neutrophils % 23.1 L Lymphocytes % 52.1 H Monocytes % 16.3 H Eosinophils % 7.3 H Basophils % 1.2 Nucleated RBC % 0 PT with INR 16.90 H INR 1.43 H Sodium 141 Potassium 5.3 H Chloride 114 H Carbon Dioxide 15 L Anion Gap 11 BUN 81.1 H Creatinine 6.2 H Est GFR (CKD-EPI)AfAm 10.25 Est GFR (CKD-EPI)NonAf 8.85 Random Glucose 158 H Calcium 7.3 L Total Bilirubin 0.4 AST 17 ALT 16 Alkaline Phosphatase 155 H Creatine Kinase 103 Troponin I 0.44 H Total Protein 6.6 Albumin 2.7 L ASSESSMENT/PLAN: ARF: R/O WATSON Recent PCI with stent Morbid Obesity Probable OSAS DM Lymphoma HTN CAD Bradycardia IVF Hold Beta-rashida for now Strict I & O Renal evaluation Cardiology evaluation O2 as needed Plavix Follow BMP / K+ level Cardiac meds as ordered Requires ICU monitoring Dr Monet Critical care time spent in reviewing chart, evaluating patient and formulating plan - 36 minutes.
[2018-11-13] MEDS ORDERED: PNEUMOC 13-VAL CONJ-DIP CRM/PF 0.5 ML DISP.SYRIN IM ONE (13:35)
[2018-11-13] MEDS ORDERED: SODIUM BICARBONATE 8.4% 50 MEQ/50 ML VIAL IVPUSH ONE (14:03)
[2018-11-13] MEDS ORDERED: ALBUTEROL SO4 0.083% IH SOL 2.5 MG/3 ML VIAL.NEB. NEB ONE (14:06)
--- NOTE | 2018-11-13 14:53 | ECHO ---
Name: ESTEFANIA WAKEFIELD Exam:Adult Echocardiogram Study Date: 11/13/2018 01:45 PM Age: 63 yrs Reason For Study: w/periodic bradycardia Height: 68 in Weight: 329 lb BSA: 2.5 m2 BP: 108/62 mmHg MMode/2D Measurements & Calculations IVSd: 1.2 cm Ao root diam: 4.0 cm LVIDd: 6.5 cm LA dimension: 5.6 cm LVIDs: 3.8 cm ACS: 2.3 cm LVPWd: 1.4 cm IVSs: 1.8 cm LVPWs: 1.7 cm EDV(Teich): 213.4 ml ESV(Teich): 61.5 ml Doppler Measurements & Calculations MV E max albaro: 109.6 cm/sec Ao V2 max: 159.2 cm/sec MV A max albaro: 109.6 cm/sec Ao max P.3 mmHg MV E/A: 1.0 Ao V2 mean: 126.6 cm/sec Ao mean P.9 mmHg Ao V2 VTI: 40.4 cm TR max albaro: 267.4 cm/sec Med Peak E' Albaro: 6.6 cm/sec TR max P.6 mmHg Med E/e': 16.7 Lat Peak E' Albaro: 7.4 cm/sec Lat E/e': 14.8 Procedure The study was technically difficult with many images being suboptimal in quality. Left Ventricle Left ventricular systolic function is grossly normal. Ejection Fraction = 50-55%. The transmitral spe ctral Doppler flow pattern is suggestive of impaired LV relaxation. Regional wall motion abnormalities emil ot be excluded due to limited visualization. Right Ventricle The right ventricle is not well visualized. Atria The left atrium is moderately dilated. Mitral Valve There is severe mitral annular calcification. There is no mitral valve stenosis. There is mild mitral regurgitation. Tricuspid Valve The tricuspid valve is normal in structure and function. There is mild tricuspid regurgitation. Right ventricular systolic pressure is normal. Aortic Valve There is mild to moderate aortic sclerosis.;. No hemodynamically significant valvular aortic stenosis . No aortic regurgitation is present. Pulmonic Valve The pulmonic valve is not well seen, but is grossly normal. There is no pulmonic valvular stenosis. M ild pulmonic valvular regurgitation. Great Vessels The aortic root is not well visualized but is probably normal size. Pericardium/Pleura There is no pericardial effusion. Interpretation Summary The study was technically difficult with many images being suboptimal in quality. Left ventricular systolic function is grossly normal. Ejection Fraction = 50-55%. The right ventricle is not well visualized. The left atrium is moderately dilated. There is severe mitral annular calcification. There is mild mitral regurgitation. There is mild tricuspid regurgitation. Right ventricular systolic pressure is normal. There is mild to moderate aortic sclerosis.; No hemodynamically significant valvular aortic stenosis. There is no pericardial effusion. MD Dudley *Shayan 11/13/2018 02:53 PM
[2018-11-13] MEDS ORDERED: SODIUM ZIRCONIUM CYCLOSILICATE (LOKELMA) 5 GM PACKET PO SCH (15:30)
[2018-11-13] MEDS ORDERED: SODIUM CHLORIDE 0.45% 250 ML IV ONE (17:30)
[2018-11-13] MEDS ORDERED: DEXTROSE 50%-WATER - 25 GM/50 ML VIAL ONE (17:50)
[2018-11-13] MEDS ORDERED: SODIUM BICARBONATE 8.4% 50 MEQ/50 ML DISP.SYRIN IVPUSH ONE (17:57)
[2018-11-13] MEDS: SODIUM CHLORIDE 0.45% 1,000 ML IV SCH (18:15)
[2018-11-13] MEDS: HEPARIN - 25,000 UNIT in SODIUM CHLORIDE 495 ML IV SCH (18:15)
[2018-11-13] MEDS: INSULIN SLIDING SCALE (NOVOLOG) 1 VIAL SQ SCH ×2 (18:43→21:52)
[2018-11-13] MEDS: AMMONIUM LACTATE 12% LOTION 225 GM BOTTLE TP PRN (22:50)
[2018-11-14] MEDS ORDERED: PT OWN MED DRAWER 7, Y5N ONE ×2 (00:37→15:19)
[2018-11-14 00:39] LABS: BLOOD UREA NITROGEN 78.6 mg/dL (7-18); CALCIUM 7.2 mg/dL (8.5-10.1); CREATININE 5.8 mg/dL (0.55-1.3); POTASSIUM 5.2 mmol/L (3.5-5.1)
[2018-11-14] MEDS: HEPARIN NA (PORCINE) 5,000 UNITS/ML 1ML VIAL IVPUSH PRN ×4 (00:39→22:36)
[2018-11-14] MEDS: INSULIN SLIDING SCALE (NOVOLOG) 1 VIAL SQ SCH ×4 (06:05→22:27)
[2018-11-14 06:29] LABS: HEMATOCRIT 28.4 % (35.4-49); HEMOGLOBIN 9.4 GM/dL (11.7-16.9); MCH 28.6 pg (25.7-33.7); MCHC 33.3 g/dl (32.0-35.9); MEAN CELL VOLUME 85.9 fl (80-96); MEAN PLT VOLUME 9.1 fl (7.5-11.1); PLATELET COUNT 175 K/MM3 (134-434); RDW 18.7 % (11.9-15.9); WHITE BLOOD COUNT 3.8 K/mm3 (4.0-10.0)
--- NOTE | 2018-11-14 06:49 | PN ---
Progress Note, Physician Chief Complaint: no CP, SOB, dizziness tele: Sinus, sinus gabriela, PAF, no sig pauses History of Present Illness: repeat echo: normal EF, diastolic dysfx, no effusion - Current Medication List Current Medications: Active Medications Acetaminophen (Tylenol -) 650 mg PO Q6H PRN PRN Reason: PAIN OR FEVER Aspirin (Asa -) 81 mg PO DAILY [facility] Clopidogrel Bisulfate (Plavix -) 75 mg PO DAILY JENNY Heparin Sodium (Porcine) (Heparin -) 1,000 unit IVPUSH PRN PRN PRN Reason: Heparin Heparin Sodium (Porcine) (Heparin -) 5,000 unit IVPUSH PRN PRN PRN Reason: Heparin Last Admin: 11/14/18 00:39 Dose: 5,000 unit Sodium Chloride (1/2 Normal Saline) 1,000 mls @ 75 mls/hr IV ASDIR JENNY Last Admin: 11/13/18 18:15 Dose: 75 mls/hr Heparin Sodium (Porcine) 25, (000 unit/ Sodium Chloride) 500 mls @ 20 mls/hr IV TITR JENNY; Protocol Last Titration: 11/14/18 00:35 Dose: 1,150 unit/hr, 23 mls/hr Insulin Aspart (Novolog Vial Sliding Scale -) 1 vial SQ ACHS [facility]; Protocol Last Admin: 11/14/18 06:05 Dose: Not Given Lactic Acid (Lac-Hydrin 12) 1 applic TP BID PRN PRN Reason: WOUND CARE Last Admin: 11/13/18 22:50 Dose: 1 applic Ondansetron HCl (Zofran Odt -) 4 mg SL Q6H PRN PRN Reason: NAUSEA AND/OR VOMITING Pneumococcal 13-Valent Conj Vacc (Prevnar 13 Syringe -) 0.5 ml IM .ONCE ONE Stop: 11/14/18 10:01 Sodium Zirconium Cyclosilicate (Lokelma) 10 gm PO DAILY [facility] Last Admin: 11/13/18 18:03 Dose: 10 gm - Objective Vital Signs: Vital Signs Temperature 98.4 F 11/14/18 06:00 Pulse Rate 41 L 11/14/18 06:00 Respiratory Rate 22 H 11/14/18 06:00 Blood Pressure 130/48 L 11/14/18 06:00 O2 Sat by Pulse Oximetry (%) 99 11/14/18 04:56 Constitutional: Yes: No Distress, Calm Cardiovascular: Yes: Regular Rate and Rhythm Respiratory: Yes: CTA Bilaterally (NO RALES) Gastrointestinal: Yes: Soft (NT) Edema: Yes Edema: LLE: 1+ (venous stasis), RLE: 1+ (venous stasis) Neurological: Yes: Alert, Oriented Labs: INR, PTT INR 1.43 (0.83-1.09) H 11/13/18 06:40 Laboratory Tests 11/13/18 11/13/18 11/13/18 06:40 11:42 23:30 WBC Hgb Plt Count PTT (Actin FS) Sodium Potassium 5.2 H Creatinine 5.8 H Troponin I 0.44 H 0.28 H 11/14/18 11/14/18 11/14/18 06:05 06:05 06:05 WBC 3.8 L Hgb 9.4 L Plt Count 175 PTT (Actin FS) 48.6 H Sodium Pending Potassium Pending Creatinine Pending Troponin I Assessment/Plan IMP: Acute renal failure, likely contrast induced, hyperK+ with ECG changes CAD s/p PCI one week ago PAF on NOAC Chronic Diastolic CHF PAF Sinus Gabriela REC: 1. Continue to monitor and treat hyperk+; renal following. 2. Continue telemetry 3. To continue DAPT, PCI one week ago. 4. Avoid AV jaja agents. Sinus gabriela is chronic and may be exacerbated by metabolic disturbances. Asx. 5. On heparin gtts for PAF (goal PTT 50-70); to resume NOAC when GFR stable.
[2018-11-14] MEDS: SODIUM CHLORIDE 0.45% 1,000 ML IV SCH ×2 (06:55→20:57)
[2018-11-14 08:06] LABS: BLOOD UREA NITROGEN 79.2 mg/dL (7-18); CREATININE 5.6 mg/dL (0.55-1.3); MAGNESIUM 2.4 mg/dL (1.8-2.4); PHOSPHOROUS 8.4 mg/dL (2.5-4.9); POTASSIUM 5.8 mmol/L (3.5-5.1)
--- NOTE | 2018-11-14 08:10 | PN ---
Progress Note, Physician Chief Complaint: ARF History of Present Illness: NAD Denies any CP, SOB, N/V - Current Medication List Current Medications: Active Medications Acetaminophen (Tylenol -) 650 mg PO Q6H PRN PRN Reason: PAIN OR FEVER Aspirin (Asa -) 81 mg PO DAILY [facility] Clopidogrel Bisulfate (Plavix -) 75 mg PO DAILY [facility] Heparin Sodium (Porcine) (Heparin -) 1,000 unit IVPUSH PRN PRN PRN Reason: Heparin Last Admin: 11/14/18 06:53 Dose: 1,000 unit Heparin Sodium (Porcine) (Heparin -) 5,000 unit IVPUSH PRN PRN PRN Reason: Heparin Last Admin: 11/14/18 00:39 Dose: 5,000 unit Sodium Chloride (1/2 Normal Saline) 1,000 mls @ 75 mls/hr IV ASDIR JENNY Last Admin: 11/14/18 06:55 Dose: 75 mls/hr Heparin Sodium (Porcine) 25, (000 unit/ Sodium Chloride) 500 mls @ 20 mls/hr IV TITR JENNY; Protocol Last Titration: 11/14/18 06:52 Dose: 1,250 unit/hr, 25 mls/hr Insulin Aspart (Novolog Vial Sliding Scale -) 1 vial SQ ACHS [facility]ENNY; Protocol Last Admin: 11/14/18 06:05 Dose: Not Given Lactic Acid (Lac-Hydrin 12) 1 applic TP BID PRN PRN Reason: WOUND CARE Last Admin: 11/13/18 22:50 Dose: 1 applic Ondansetron HCl (Zofran Odt -) 4 mg SL Q6H PRN PRN Reason: NAUSEA AND/OR VOMITING Pneumococcal 13-Valent Conj Vacc (Prevnar 13 Syringe -) 0.5 ml IM .ONCE ONE Stop: 11/14/18 10:01 Sodium Zirconium Cyclosilicate (Lokelma) 10 gm PO DAILY [facility] Last Admin: 11/13/18 18:03 Dose: 10 gm - Objective Vital Signs: Vital Signs Temperature 98.4 F 11/14/18 06:00 Pulse Rate 41 L 11/14/18 06:00 Respiratory Rate 22 H 11/14/18 06:00 Blood Pressure 130/48 L 11/14/18 06:00 O2 Sat by Pulse Oximetry (%) 99 11/14/18 04:56 Constitutional: Yes: Well Nourished, No Distress, Calm, Obese Cardiovascular: Yes: Bradycardia Respiratory: Yes: Regular, On Nasal O2 Genitourinary: Yes: WNL Musculoskeletal: Yes: WNL Extremities: Yes: WNL Edema: Yes Edema: LLE: Trace, RLE: Trace Peripheral Pulses WNL: Yes Integumentary: Yes: Venous Stasis Changes (BLLE) Neurological: Yes: Alert, Oriented Psychiatric: Yes: Alert, Oriented Labs: CBC, BMP 11/14/18 06:05 11/14/18 06:05 INR, PTT INR 1.43 (0.83-1.09) H 11/13/18 06:40 Problem List - Problems (1) Renal failure Assessment/Plan: - arb on hold - cyclosporin on hold for now - Continue IVF 1/2 ns - monitor on tele - avoid nsaids or any other nephrotoxic drugs Code(s): N19 - UNSPECIFIED KIDNEY FAILURE Qualifiers: Renal failure chronicity: acute Acute renal failure type: unspecified Qualified Code(s): N17.9 - Acute kidney failure, unspecified (2) ZHANG (acute kidney injury) Problems reviewed: Yes Code(s): N17.9 - ACUTE KIDNEY FAILURE, UNSPECIFIED (3) Afib Assessment/Plan: -Heparin drip -Transition to NOAC once renal fxn is at baseline or switch to Warfarin Problems reviewed: Yes Code(s): I48.91 - UNSPECIFIED ATRIAL FIBRILLATION Qualifiers: Atrial fibrillation type: unspecified Qualified Code(s): I48.91 - Unspecified atrial fibrillation (4) Anemia Assessment/Plan: -Stool OB + last month -Seen by GI -Recheck OB -If + would have GI re-evaluate -Avoid constipation -Iron studies normal last visit in 10/29 Problems reviewed: Yes Code(s): D64.9 - ANEMIA, UNSPECIFIED (5) Hyperkalemia Assessment/Plan: -On sodium zirconium- 10 mg po daily---> increase to bid, may titrate up to tid -Regular insulin IVP 10 U now+ D50 25 mg once -Repeat BMP later today -Nephrology on board Problems reviewed: Yes Code(s): E87.5 - HYPERKALEMIA (6) Elevated troponin Assessment/Plan: -2/2 to ARF -No chest pain -Cardiology on board Code(s): R79.89 - OTHER SPECIFIED ABNORMAL FINDINGS OF BLOOD CHEMISTRY (7) CAD (coronary artery disease) Assessment/Plan: -Seen by Cardiology -PCI 1 week ago -On triple [id number]-lws-noac (heparin for now) -On statin Problems reviewed: Yes Code(s): I25.10 - ATHSCL HEART DISEASE OF [place] CORONARY ARTERY W/O ANG PCTRS (8) CHF (congestive heart failure) Problems reviewed: Yes Code(s): I50.9 - HEART FAILURE, UNSPECIFIED Qualifiers: Heart failure chronicity: chronic congestive heart failure (9) Morbid obesity with BMI of 50.0-59.9, adult Assessment/Plan: -A1c at 6.2 -D/C BGM + Insulin sliding scale Problems reviewed: Yes Code(s): E66.01 - MORBID (SEVERE) OBESITY DUE TO EXCESS CALORIES; Z68.43 - BODY MASS INDEX (BMI) 50.0-59.9, ADULT Assessment/Plan see problem list
[2018-11-14 08:13] LABS: CALCIUM 6.8 mg/dL (8.5-10.1)
[2018-11-14] MEDS ORDERED: INSULIN REGULAR HUMAN 100 UNITS/ML *VIAL IVPUSH ONE (08:15)
[2018-11-14] MEDS ORDERED: DEXTROSE 50%-WATER - 25 GM/50 ML VIAL IVPUSH ONE (08:15)
--- NOTE | 2018-11-14 08:29 | PN ---
Progress Note (short form) - Note Progress Note: RENAL Pt is awake and laert comfortable has no complaints he is bradycardic Last Vital Signs Temp Pulse Resp BP Pulse Ox 98.4 F 41 L 22 H 130/48 L 99 11/14/18 06:00 11/14/18 06:00 11/14/18 06:00 11/14/18 06:00 11/14/18 04:56 lungs clear cvs s1s2 rr abd soft ext no edema, venous stasis changes neuro a+ox3 Current Medications Generic Name Dose Route Start Last Admin Trade Name Freq PRN Reason Stop Dose Admin Acetaminophen 650 mg 11/13/18 11:47 Tylenol - PO Q6H PRN PAIN OR FEVER Aspirin 81 mg 11/14/18 10:00 Asa - PO DAILY [facility] Atorvastatin Calcium 40 mg 11/14/18 22:00 Lipitor - PO HS JENNY Clopidogrel Bisulfate 75 mg 11/14/18 10:00 Plavix - PO DAILY JENNY Heparin Sodium (Porcine) 1,000 unit 11/13/18 15:09 11/14/18 06:53 Heparin - IVPUSH 1,000 unit PRN PRN Administration Heparin Heparin Sodium (Porcine) 5,000 unit 11/13/18 15:09 11/14/18 00:39 Heparin - IVPUSH 5,000 unit PRN PRN Administration Heparin Sodium Chloride 1,000 mls @ 75 mls/hr 11/13/18 14:15 11/14/18 06:55 1/2 Normal Saline IV 75 mls/hr ASDIR JENNY Administration Heparin Sodium (Porcine) 25, 500 mls @ 20 mls/hr 11/13/18 15:15 11/14/18 06: 52 000 unit/ Sodium Chloride IV 1,250 unit/hr TITR JENNY 25 mls/hr Titration Protocol 1,000 UNIT/HR Insulin Aspart 1 vial 11/13/18 16:30 11/14/18 06:05 Novolog Vial Sliding Scale - SQ Not Given ACHS JENNY Protocol Lactic Acid 1 applic 11/13/18 22:30 11/13/18 22:50 Lac-Hydrin 12 TP 1 applic BID PRN Administration WOUND CARE Ondansetron HCl 4 mg 11/13/18 11:47 Zofran Odt - SL Q6H PRN NAUSEA AND/OR VOMITING Pneumococcal 13-Valent Conj Vacc 0.5 ml 11/14/18 10:00 Prevnar 13 Syringe - IM 11/14/18 10:01 .ONCE ONE Polyethylene Glycol 17 gm 11/14/18 10:00 Miralax (For Daily Use) - PO DAILY JENNY Sodium Zirconium Cyclosilicate 10 gm 11/14/18 10:00 Lokelma PO BID JENNY CBC, BMP 11/14/18 06:05 11/14/18 06:05 Impression 1. CKD 2. ZHANG- has stabilized 3. s/p cardiac stent 4. morbid obesity 5. DM 6. PVD 7. Gout 8. Large cell granular leukemia/lymphoma 9. anemia 10. 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
--- NOTE | 2018-11-14 08:53 | PN ---
Progress Note (short form) - Note Progress Note: Patient seen and examined in the ICU Denies: FOURNIER/SOB/cough/CP/palpitations Remains sinus gabriela Potassium remains elevated but stable w/ medical management Current Medications Acetaminophen (Tylenol -) 650 mg PO Q6H PRN PRN Reason: PAIN OR FEVER Aspirin (Asa -) 81 mg PO DAILY JENNY Atorvastatin Calcium (Lipitor -) 40 mg PO HS JENNY Clopidogrel Bisulfate (Plavix -) 75 mg PO DAILY JENNY Heparin Sodium (Porcine) (Heparin -) 1,000 unit IVPUSH PRN PRN PRN Reason: Heparin Last Admin: 11/14/18 06:53 Dose: 1,000 unit Heparin Sodium (Porcine) (Heparin -) 5,000 unit IVPUSH PRN PRN PRN Reason: Heparin Last Admin: 11/14/18 00:39 Dose: 5,000 unit Sodium Chloride (1/2 Normal Saline) 1,000 mls @ 75 mls/hr IV ASDIR JENNY Last Admin: 11/14/18 06:55 Dose: 75 mls/hr Heparin Sodium (Porcine) 25, (000 unit/ Sodium Chloride) 500 mls @ 20 mls/hr IV TITR JENNY; Protocol Last Titration: 11/14/18 06:52 Dose: 1,250 unit/hr, 25 mls/hr Insulin Aspart (Novolog Vial Sliding Scale -) 1 vial SQ ACHS [facility]; Protocol Last Admin: 11/14/18 06:05 Dose: Not Given Lactic Acid (Lac-Hydrin 12) 1 applic TP BID PRN PRN Reason: WOUND CARE Last Admin: 11/13/18 22:50 Dose: 1 applic Ondansetron HCl (Zofran Odt -) 4 mg SL Q6H PRN PRN Reason: NAUSEA AND/OR VOMITING Pneumococcal 13-Valent Conj Vacc (Prevnar 13 Syringe -) 0.5 ml IM .ONCE ONE Stop: 11/14/18 10:01 Polyethylene Glycol (Miralax (For Daily Use) -) 17 gm PO DAILY [facility] Sodium Zirconium Cyclosilicate (Lokelma) 10 gm PO BID JENNY Intake & Output 11/11/18 11/12/18 11/13/18 11/14/18 23:59 23:59 23:59 23:59 Intake Total 1294 1211 Output Total 105 640 Balance 1189 571 Weight 149.232 kg 151.046 kg Vital Signs Period Temp Pulse Resp BP Sys/Reddy Pulse Ox Last 24 Hr 97.9 F-98.6 F 31-88 16-27 109-130/37-66 96-100 Exam: awake, alert w/o distress Neuro: CN grossly intact. CHAVEZ CV: sinus gabriela. no m/r/g Pulm: CTA Abd: obese, SNTND +BS Ext: chronic LE edema +1-2 CBCD WBC 3.8 K/mm3 (4.0-10.0) L 11/14/18 06:05 RBC 3.30 M/mm3 (4.00-5.60) L 11/14/18 06:05 Hgb 9.4 GM/dL (11.7-16.9) L 11/14/18 06:05 Hct 28.4 % (35.4-49) L 11/14/18 06:05 MCV 85.9 fl (80-96) 11/14/18 06:05 MCHC 33.3 g/dl (32.0-35.9) 11/14/18 06:05 RDW 18.7 % (11.9-15.9) H 11/14/18 06:05 Plt Count 175 K/MM3 (134-434) 11/14/18 06:05 MPV 9.1 fl (7.5-11.1) D 11/14/18 06:05 CMP Sodium 142 mmol/L (136-145) 11/14/18 06:05 Potassium 5.8 mmol/L (3.5-5.1) H 11/14/18 06:05 Chloride 115 mmol/L (98-107) H 11/14/18 06:05 Carbon Dioxide 15 mmol/L (21-32) L 11/14/18 06:05 Anion Gap 12 MMOL/L (8-16) 11/14/18 06:05 BUN 79.2 mg/dL (7-18) H 11/14/18 06:05 Creatinine 5.6 mg/dL (0.55-1.3) H 11/14/18 06:05 Calcium 6.8 mg/dL (8.5-10.1) L* 11/14/18 06:05 Total Bilirubin 0.4 mg/dL (0.2-1) 11/13/18 06:40 AST 17 U/L (15-37) 11/13/18 06:40 ALT 16 U/L (13-61) 11/13/18 06:40 Alkaline Phosphatase 155 U/L (45-117) H 11/13/18 06:40 Total Protein 6.6 g/dl (6.4-8.2) 11/13/18 06:40 Albumin 2.7 g/dl (3.4-5.0) L 11/13/18 06:40 ASSESSMENT/PLAN: ARF: R/O WATSON +/- diuresis Recent PCI with stent Morbid Obesity Probable OSAS DM Lymphoma HTN CAD Bradycardia Renal following -medical management of hyperkalemia: Lokelma, Dextrose and insulin -PM BMP -strick I&O's -IVF 1/2 NS hyperchloremic metabolic acidosis Cardiology following -cont heparin, will transition to PO once able -cont DAPT -hold BB given bradycardia -Cont tele monitoring O2 as needed Incentive esdras MM -restart cyclosporin per oncology Boerem ACNP Pulm/CCM CCT: 35'
[2018-11-14] MEDS ORDERED: DEXTROSE 50%-WATER - 25 GM/50 ML VIAL ONE (09:03)
[2018-11-14] MEDS: ASPIRIN 81 MG CHEWABLE TABLETS PO SCH (09:59)
[2018-11-14] MEDS: CLOPIDOGREL BISULFATE 75 MG TABLET (FP) PO SCH (09:59)
[2018-11-14] MEDS: SODIUM ZIRCONIUM CYCLOSILICATE (LOKELMA) 5 GM PACKET PO SCH ×2 (10:00→22:36)
[2018-11-14] MEDS ORDERED: PNEUMOC 13-VAL CONJ-DIP CRM/PF 0.5 ML DISP.SYRIN IM ONE ×2 (10:00→23:30)
[2018-11-14] MEDS: POLYETHYLENE GLYCOL 3350 119 GM BTL PO SCH (10:04)
[2018-11-14] MEDS ORDERED: traMADol HCL 50 MG TABLET PO PRN (11:14)
[2018-11-14] MEDS: HEPARIN - 25,000 UNIT in SODIUM CHLORIDE 495 ML IV SCH (17:20)
[2018-11-14 18:15] LABS: BLOOD UREA NITROGEN 78.3 mg/dL (7-18); CREATININE 4.5 mg/dL (0.55-1.3); POTASSIUM 5.1 mmol/L (3.5-5.1)
[2018-11-14 18:20] LABS: CALCIUM 6.2 mg/dL (8.5-10.1)
[2018-11-14] MEDS ORDERED: ATORVASTATIN CA 40 MG TABLET (FP) PO SCH (22:00)
[2018-11-15] MEDS: INSULIN SLIDING SCALE (NOVOLOG) 1 VIAL SQ SCH (06:10)
[2018-11-15 06:36] LABS: HEMATOCRIT 27.7 % (35.4-49); HEMOGLOBIN 9.3 GM/dL (11.7-16.9); MCH 28.3 pg (25.7-33.7); MCHC 33.6 g/dl (32.0-35.9); MEAN CELL VOLUME 84.4 fl (80-96); MEAN PLT VOLUME 9.6 fl (7.5-11.1); PLATELET COUNT 183 K/MM3 (134-434); RBC 3.29 M/mm3 (4.00-5.60); RDW 18.4 % (11.9-15.9); WHITE BLOOD COUNT 3.8 K/mm3 (4.0-10.0)
[2018-11-15] MEDS ORDERED: SENNOSIDES 8.6MG TABLET (FP) PO PRN ×2 (07:17→18:38)
[2018-11-15 07:48] LABS: BLOOD UREA NITROGEN 66.1 mg/dL (7-18); CALCIUM 7.3 mg/dL (8.5-10.1); CREATININE 3.3 mg/dL (0.55-1.3); MAGNESIUM 2.3 mg/dL (1.8-2.4); PHOSPHOROUS 4.7 mg/dL (2.5-4.9); POTASSIUM 4.8 mmol/L (3.5-5.1)
[2018-11-15] MEDS: HEPARIN NA (PORCINE) 5,000 UNITS/ML 1ML VIAL IVPUSH PRN ×2 (07:56→16:00)
--- NOTE | 2018-11-15 08:00 | PN ---
Progress Note (short form) - Note Progress Note: RENAL Pt is awake and alert comfortable has no complaints making adequate amounts of urine Last Vital Signs Temp Pulse Resp BP Pulse Ox 98.2 F 68 19 162/60 97 11/15/18 06:00 11/15/18 06:00 11/15/18 06:00 11/15/18 06:00 11/15/18 04:45 lungs clear cvs s1s2 rr abd soft ext no edema, venous stasis changes neuro a+ox3 CBC, BMP 11/15/18 05:35 11/15/18 05:35 CBC, BMP 11/14/18 06:05 11/14/18 06:05 Current Medications Generic Name Dose Route Start Last Admin Trade Name Freq PRN Reason Stop Dose Admin Acetaminophen 650 mg 11/13/18 11:47 Tylenol - PO Q6H PRN PAIN OR FEVER Aspirin 81 mg 11/14/18 10:00 11/14/18 09:59 Asa - PO 81 mg DAILY JENNY Administration Atorvastatin Calcium 40 mg 11/14/18 22:00 11/14/18 22:22 Lipitor - PO 40 mg HS JENNY Administration Clopidogrel Bisulfate 75 mg 11/14/18 10:00 11/14/18 09:59 Plavix - PO 75 mg DAILY JENNY Administration Docusate Sodium 100 mg 11/15/18 07:30 Colace - PO TID [facility] Heparin Sodium (Porcine) 1,000 unit 11/13/18 15:09 11/15/18 07:56 Heparin - IVPUSH 1,000 unit PRN PRN Administration Heparin Heparin Sodium (Porcine) 5,000 unit 11/13/18 15:09 11/14/18 14:48 Heparin - IVPUSH 5,000 unit PRN PRN Administration Heparin Sodium Chloride 1,000 mls @ 75 mls/hr 11/13/18 14:15 11/14/18 20:57 1/2 Normal Saline IV 75 mls/hr ASDIR JENNY Administration Heparin Sodium (Porcine) 25, 500 mls @ 20 mls/hr 11/13/18 15:15 11/15/18 07: 54 000 unit/ Sodium Chloride IV 1,600 unit/hr TITR JENNY 32 mls/hr Titration Protocol 1,000 UNIT/HR Insulin Aspart 1 vial 11/13/18 16:30 11/15/18 06:10 Novolog Vial Sliding Scale - SQ Not Given ACHS JENNY Protocol Lactic Acid 1 applic 11/13/18 22:30 11/13/18 22:50 Lac-Hydrin 12 TP 1 applic BID PRN Administration WOUND CARE Ondansetron HCl 4 mg 11/13/18 11:47 Zofran Odt - SL Q6H PRN NAUSEA AND/OR VOMITING Pneumococcal 13-Valent Conj Vacc 0.5 ml 11/14/18 23:30 Prevnar 13 Syringe - IM 11/14/18 23:31 .ONCE ONE Polyethylene Glycol 17 gm 11/14/18 10:00 11/14/18 10:04 Miralax (For Daily Use) - PO 17 grams DAILY JENNY Administration Senna 2 tab 11/15/18 07:17 Senna - PO HS PRN CONSTIPATION Sodium Zirconium Cyclosilicate 10 gm 11/14/18 10:00 11/14/18 22:36 Lokelma PO 10 gm BID JENNY Administration Tramadol HCl 50 mg 11/14/18 11:14 11/14/18 11:49 Ultram - PO 50 mg Q8H PRN Administration PAIN LEVEL 6-10 Impression 1. CKD 2. ZHANG- improved 3. s/p cardiac stent 4. morbid obesity 5. DM 6. PVD 7. Gout 8. Large cell granular leukemia/lymphoma 9. anemia 10. hyperkalemia on lokelma Plan would dc fluids and encourage po intake no other changes for now may give steroids for acute gout MV
--- NOTE | 2018-11-15 08:09 | PN ---
Progress Note, Physician Chief Complaint: denies CP, SOB Denies palps TELE: NSR, APCs - Current Medication List Current Medications: Active Medications Acetaminophen (Tylenol -) 650 mg PO Q6H PRN PRN Reason: PAIN OR FEVER Aspirin (Asa -) 81 mg PO DAILY [facility] Last Admin: 11/14/18 09:59 Dose: 81 mg Atorvastatin Calcium (Lipitor -) 40 mg PO HS JENNY Last Admin: 11/14/18 22:22 Dose: 40 mg Clopidogrel Bisulfate (Plavix -) 75 mg PO DAILY [facility] Last Admin: 11/14/18 09:59 Dose: 75 mg Docusate Sodium (Colace -) 100 mg PO TID [facility] Heparin Sodium (Porcine) (Heparin -) 1,000 unit IVPUSH PRN PRN PRN Reason: Heparin Last Admin: 11/15/18 07:56 Dose: 1,000 unit Heparin Sodium (Porcine) (Heparin -) 5,000 unit IVPUSH PRN PRN PRN Reason: Heparin Last Admin: 11/14/18 14:48 Dose: 5,000 unit Sodium Chloride (1/2 Normal Saline) 1,000 mls @ 75 mls/hr IV ASDIR JENNY Last Admin: 11/14/18 20:57 Dose: 75 mls/hr Heparin Sodium (Porcine) 25, (000 unit/ Sodium Chloride) 500 mls @ 20 mls/hr IV TITR [facility]; Protocol Last Titration: 11/15/18 07:54 Dose: 1,600 unit/hr, 32 mls/hr Insulin Aspart (Novolog Vial Sliding Scale -) 1 vial SQ ACHS [facility]; Protocol Last Admin: 11/15/18 06:10 Dose: Not Given Lactic Acid (Lac-Hydrin 12) 1 applic TP BID PRN PRN Reason: WOUND CARE Last Admin: 11/13/18 22:50 Dose: 1 applic Ondansetron HCl (Zofran Odt -) 4 mg SL Q6H PRN PRN Reason: NAUSEA AND/OR VOMITING Pneumococcal 13-Valent Conj Vacc (Prevnar 13 Syringe -) 0.5 ml IM .ONCE ONE Stop: 11/14/18 23:31 Polyethylene Glycol (Miralax (For Daily Use) -) 17 gm PO DAILY [facility] Last Admin: 11/14/18 10:04 Dose: 17 grams Senna (Senna -) 2 tab PO HS PRN PRN Reason: CONSTIPATION Sodium Zirconium Cyclosilicate (Lokelma) 10 gm PO BID JENNY Last Admin: 11/14/18 22:36 Dose: 10 gm Tramadol HCl (Ultram -) 50 mg PO Q8H PRN PRN Reason: PAIN LEVEL 6-10 Last Admin: 11/14/18 11:49 Dose: 50 mg - Objective Vital Signs: Vital Signs Temperature 98.2 F 11/15/18 06:00 Pulse Rate 68 11/15/18 06:00 Respiratory Rate 11/15/18 06:00 Blood Pressure 162/60 11/15/18 06:00 O2 Sat by Pulse Oximetry (%) 97 11/15/18 04:45 Constitutional: Yes: No Distress, Calm Cardiovascular: Yes: Regular Rate and Rhythm Respiratory: Yes: CTA Bilaterally (NO RALES) Gastrointestinal: Yes: Soft, Abdomen, Obese Edema: No (venous stasis, b/l) Peripheral Pulses WNL: Yes Neurological: Yes: Alert, Oriented ...Motor Strength: WNL Labs: CBC, BMP 11/15/18 05:35 11/15/18 05:35 INR, PTT INR 1.43 (0.83-1.09) H 11/13/18 06:40 Laboratory Tests 11/14/18 11/14/18 11/15/18 06:05 21:15 05:30 WBC Hgb Plt Count PTT (Actin FS) 48.6 H 47.4 H 41.0 H Sodium Potassium BUN Creatinine Magnesium 11/15/18 11/15/18 05:35 05:35 WBC 3.8 L Hgb 9.3 L Plt Count 183 PTT (Actin FS) Sodium 146 H Potassium 4.8 BUN 66.1 H Creatinine 3.3 H Magnesium 2.3 - ....Imaging EKG: Image Reviewed Assessment/Plan IMP: Acute renal failure, likely contrast induced, hyperK+ with ECG changes CAD s/p PCI one week ago PAF on NOAC Chronic Diastolic CHF PAF Sinus Gabriela, improved REC: 1. Continue to monitor and treat hyperk+; renal following. 2. Continue telemetry 3. To continue DAPT, PCI one week ago. 4. Avoid AV jaaj agents. Sinus gabriela is chronic and may be exacerbated by metabolic disturbances. Asx. 5. On heparin gtts for PAF (goal PTT 50-70); to resume NOAC when GFR stable. 6. BP mildly elevated this AM, monitor trend: goal BP < 140/90
--- NOTE | 2018-11-15 09:02 | PN ---
Progress Note (short form) - Note Progress Note: Seen and examined in the ICU Denies: fever/chills/SOB/palpitations/FOURNIER/n/v HR stable Current Medications Acetaminophen (Tylenol -) 650 mg PO Q6H PRN PRN Reason: PAIN OR FEVER Aspirin (Asa -) 81 mg PO DAILY [facility] Last Admin: 11/14/18 09:59 Dose: 81 mg Atorvastatin Calcium (Lipitor -) 40 mg PO HS JENNY Last Admin: 11/14/18 22:22 Dose: 40 mg Clopidogrel Bisulfate (Plavix -) 75 mg PO DAILY [facility] Last Admin: 11/14/18 09:59 Dose: 75 mg Docusate Sodium (Colace -) 100 mg PO TID JENNY Heparin Sodium (Porcine) (Heparin -) 1,000 unit IVPUSH PRN PRN PRN Reason: Heparin Last Admin: 11/15/18 07:56 Dose: 1,000 unit Heparin Sodium (Porcine) (Heparin -) 5,000 unit IVPUSH PRN PRN PRN Reason: Heparin Last Admin: 11/14/18 14:48 Dose: 5,000 unit Sodium Chloride (1/2 Normal Saline) 1,000 mls @ 75 mls/hr IV ASDIR JENNY Last Admin: 11/14/18 20:57 Dose: 75 mls/hr Heparin Sodium (Porcine) 25, (000 unit/ Sodium Chloride) 500 mls @ 20 mls/hr IV TITR [facility]; Protocol Last Titration: 11/15/18 07:54 Dose: 1,600 unit/hr, 32 mls/hr Insulin Aspart (Novolog Vial Sliding Scale -) 1 vial SQ ACHS [facility]; Protocol Last Admin: 11/15/18 06:10 Dose: Not Given Lactic Acid (Lac-Hydrin 12) 1 applic TP BID PRN PRN Reason: WOUND CARE Last Admin: 11/13/18 22:50 Dose: 1 applic Ondansetron HCl (Zofran Odt -) 4 mg SL Q6H PRN PRN Reason: NAUSEA AND/OR VOMITING Pneumococcal 13-Valent Conj Vacc (Prevnar 13 Syringe -) 0.5 ml IM .ONCE ONE Stop: 11/14/18 23:31 Polyethylene Glycol (Miralax (For Daily Use) -) 17 gm PO DAILY [facility] Last Admin: 11/14/18 10:04 Dose: 17 grams Senna (Senna -) 2 tab PO HS PRN PRN Reason: CONSTIPATION Sodium Zirconium Cyclosilicate (Lokelma) 10 gm PO BID JENNY Last Admin: 11/14/18 22:36 Dose: 10 gm Tramadol HCl (Ultram -) 50 mg PO Q8H PRN PRN Reason: PAIN LEVEL 6-10 Last Admin: 11/14/18 11:49 Dose: 50 mg Vital Signs Period Temp Pulse Resp BP Sys/Reddy Pulse Ox Last 24 Hr 98.2 F-98.5 F 43-76 18-24 132-162/46-61 92-98 Intake & Output 11/12/18 11/13/18 11/14/18 11/15/18 23:59 23:59 23:59 23:59 Intake Total 1294 3201 1254 Output Total 105 4140 1000 Balance 1189 -939 254 Weight 149.232 kg 151.046 kg 151.318 kg Exam: awake, alert w/o distress Neuro: CN grossly intact. CHAVEZ CV: sinus gabriela. no m/r/g Pulm: CTA Abd: obese, SNTND +BS Ext: chronic LE edema +1-2 11/15/18 05:35 11/15/18 05:35 ASSESSMENT/PLAN: ARF: R/O WATSON +/- diuresis Recent PCI with stent Morbid Obesity Probable OSAS DM Lymphoma HTN CAD Bradycardia Renal following -medical management of hyperkalemia: Sudha denny I&O's -IVF 1/2 NS hyperchloremic metabolic acidosis Cardiology following -cont heparin, will transition to PO once able -cont DAPT -hold BB given bradycardia -Cont tele monitoring O2 as needed Incentive esdras MM -restart cyclosporin per oncology stable for tele transfer Keila ACNP Pulm/CCM CCT: 35'
--- NOTE | 2018-11-15 09:26 | PN ---
Progress Note, Physician Chief Complaint: ARF History of Present Illness: NAD Denies any CP, SOB, N/V - Current Medication List Current Medications: Active Medications Acetaminophen (Tylenol -) 650 mg PO Q6H PRN PRN Reason: PAIN OR FEVER Aspirin (Asa -) 81 mg PO DAILY [facility] Last Admin: 11/14/18 09:59 Dose: 81 mg Atorvastatin Calcium (Lipitor -) 40 mg PO HS JENNY Last Admin: 11/14/18 22:22 Dose: 40 mg Clopidogrel Bisulfate (Plavix -) 75 mg PO DAILY [facility] Last Admin: 11/14/18 09:59 Dose: 75 mg Docusate Sodium (Colace -) 100 mg PO TID [facility] Heparin Sodium (Porcine) (Heparin -) 1,000 unit IVPUSH PRN PRN PRN Reason: Heparin Last Admin: 11/15/18 07:56 Dose: 1,000 unit Heparin Sodium (Porcine) (Heparin -) 5,000 unit IVPUSH PRN PRN PRN Reason: Heparin Last Admin: 11/14/18 14:48 Dose: 5,000 unit Sodium Chloride (1/2 Normal Saline) 1,000 mls @ 75 mls/hr IV ASDIR JENNY Last Admin: 11/14/18 20:57 Dose: 75 mls/hr Heparin Sodium (Porcine) 25, (000 unit/ Sodium Chloride) 500 mls @ 20 mls/hr IV TITR JENNY; Protocol Last Titration: 11/15/18 07:54 Dose: 1,600 unit/hr, 32 mls/hr Lactic Acid (Lac-Hydrin 12) 1 applic TP BID PRN PRN Reason: WOUND CARE Last Admin: 11/13/18 22:50 Dose: 1 applic Ondansetron HCl (Zofran Odt -) 4 mg SL Q6H PRN PRN Reason: NAUSEA AND/OR VOMITING Pneumococcal 13-Valent Conj Vacc (Prevnar 13 Syringe -) 0.5 ml IM .ONCE ONE Stop: 11/14/18 23:31 Polyethylene Glycol (Miralax (For Daily Use) -) 17 gm PO DAILY [facility] Last Admin: 11/14/18 10:04 Dose: 17 grams Senna (Senna -) 2 tab PO HS PRN PRN Reason: CONSTIPATION Sodium Zirconium Cyclosilicate (Lokelma) 10 gm PO BID [facility] Last Admin: 11/14/18 22:36 Dose: 10 gm Tramadol HCl (Ultram -) 50 mg PO Q8H PRN PRN Reason: PAIN LEVEL 6-10 Last Admin: 11/14/18 11:49 Dose: 50 mg - Objective Vital Signs: Vital Signs Temperature 98.2 F 11/15/18 06:00 Pulse Rate 68 11/15/18 06:00 Respiratory Rate 11/15/18 06:00 Blood Pressure 162/60 11/15/18 06:00 O2 Sat by Pulse Oximetry (%) 97 11/15/18 04:45 Constitutional: Yes: Well Nourished, No Distress, Calm, Obese Cardiovascular: Yes: Regular Rate and Rhythm Respiratory: Yes: Regular Genitourinary: Yes: WNL Musculoskeletal: Yes: WNL Extremities: Yes: WNL Edema: No Peripheral Pulses WNL: Yes Neurological: Yes: Alert, Oriented Psychiatric: Yes: Alert, Oriented Labs: CBC, BMP 11/15/18 05:35 11/15/18 05:35 INR, PTT INR 1.43 (0.83-1.09) H 11/13/18 06:40 Problem List - Problems (1) Renal failure Assessment/Plan: -arb on hold -cyclosporin on hold for now -Continue IVF 1 ns -monitor on tele -avoid nsaids or any other nephrotoxic drugs -Cr much improved, monitor trend Problems reviewed: Yes Code(s): N19 - UNSPECIFIED KIDNEY FAILURE Qualifiers: Renal failure chronicity: acute Acute renal failure type: unspecified Qualified Code(s): N17.9 - Acute kidney failure, unspecified (2) ZHANG (acute kidney injury) Problems reviewed: Yes Code(s): N17.9 - ACUTE KIDNEY FAILURE, UNSPECIFIED (3) Afib Assessment/Plan: -Heparin drip -Transition to NOAC once renal fxn is at baseline or switch to Warfarin Problems reviewed: Yes Code(s): I48.91 - UNSPECIFIED ATRIAL FIBRILLATION Qualifiers: Atrial fibrillation type: unspecified Qualified Code(s): I48.91 - Unspecified atrial fibrillation (4) Anemia Assessment/Plan: -Stool OB + last month -Seen by GI -Recheck OB -If + would have GI re-evaluate -Avoid constipation -Iron studies normal last visit in 10/29 -H/H stable- no signs of overt bleeding at this time Problems reviewed: Yes Code(s): D64.9 - ANEMIA, UNSPECIFIED (5) Hyperkalemia Assessment/Plan: -resolved -On sodium zirconium- 10 mg po bid, may titrate up to tid if needed -Nephrology on board Problems reviewed: Yes Code(s): E87.5 - HYPERKALEMIA (6) Elevated troponin Assessment/Plan: -2/2 to ARF -No chest pain -Cardiology on board Problems reviewed: Yes Code(s): R79.89 - OTHER SPECIFIED ABNORMAL FINDINGS OF BLOOD CHEMISTRY (7) CAD (coronary artery disease) Assessment/Plan: -Seen by Cardiology -PCI 1 week ago -On triple [id number] (heparin for now) -On statin Problems reviewed: Yes Code(s): I25.10 - ATHSCL HEART DISEASE OF [place] CORONARY ARTERY W/O ANG PCTRS (8) CHF (congestive heart failure) Problems reviewed: Yes Code(s): I50.9 - HEART FAILURE, UNSPECIFIED Qualifiers: Heart failure chronicity: chronic congestive heart failure (9) Morbid obesity with BMI of 50.0-59.9, adult Assessment/Plan: -A1c at 6.2 -D/C BGM + Insulin sliding scale Problems reviewed: Yes Code(s): E66.01 - MORBID (SEVERE) OBESITY DUE TO EXCESS CALORIES; Z68.43 - BODY MASS INDEX (BMI) 50.0-59.9, ADULT Assessment/Plan see problem list
[2018-11-15] MEDS ORDERED: PT OWN MED DRAWER 7, Y5N ONE (09:54)
[2018-11-15] MEDS: SODIUM ZIRCONIUM CYCLOSILICATE (LOKELMA) 5 GM PACKET PO SCH (09:55)
[2018-11-15] MEDS: ASPIRIN 81 MG CHEWABLE TABLETS PO SCH (09:55)
[2018-11-15] MEDS: DOCUSATE SODIUM 100 MG CAPSULE (FP) PO SCH ×3 (09:55→23:22)
[2018-11-15] MEDS: CLOPIDOGREL BISULFATE 75 MG TABLET (FP) PO SCH (09:55)
[2018-11-15] MEDS: POLYETHYLENE GLYCOL 3350 119 GM BTL PO SCH (10:00)
[2018-11-15 12:38] VITALS: BMI 50.6
[2018-11-15] MEDS ORDERED: amLODIPine BESYLATE 5 MG TABLET (FP) PO SCH (14:15)
[2018-11-15] MEDS: SODIUM CHLORIDE 0.45% 1,000 ML IV SCH (14:24)
[2018-11-15] MEDS: AMMONIUM LACTATE 12% LOTION 225 GM BOTTLE TP PRN (16:38)
[2018-11-15] MEDS ORDERED: AMMONIUM LACTATE 12% LOTION 225 GM BOTTLE TP PRN (18:38)
[2018-11-15] MEDS ORDERED: ONDANSETRON *ODT* 4 MG TABLET SL PRN (18:38)
[2018-11-15] MEDS ORDERED: HEPARIN NA (PORCINE) 5,000 UNITS/ML 1ML VIAL IVPUSH PRN ×4 (18:38)
[2018-11-15] MEDS ORDERED: traMADol HCL 50 MG TABLET PO PRN (18:38)
[2018-11-15] MEDS ORDERED: SODIUM CHLORIDE 0.45% 1,000 ML IV SCH (18:38)
[2018-11-15] MEDS ORDERED: ACETAMINOPHEN 325 MG TABLET (FP) PO PRN (18:38)
[2018-11-15] MEDS: HEPARIN - 25,000 UNIT in SODIUM CHLORIDE 495 ML IV SCH (19:00)
[2018-11-15] MEDS: ATORVASTATIN CA 40 MG TABLET (FP) PO SCH (21:49)
[2018-11-15] MEDS ORDERED: SODIUM ZIRCONIUM CYCLOSILICATE (LOKELMA) 5 GM PACKET PO SCH (22:00)
[2018-11-16] MEDS: DOCUSATE SODIUM 100 MG CAPSULE (FP) PO SCH ×3 (06:16→21:27)
[2018-11-16 06:37] LABS: HEMATOCRIT 26.1 % (35.4-49); HEMOGLOBIN 8.8 GM/dL (11.7-16.9); MCH 28.4 pg (25.7-33.7); MCHC 33.6 g/dl (32.0-35.9); MEAN CELL VOLUME 84.4 fl (80-96); PLATELET COUNT 179 K/MM3 (134-434); RDW 17.8 % (11.9-15.9); WHITE BLOOD COUNT 4.3 K/mm3 (4.0-10.0)
--- NOTE | 2018-11-16 08:54 | PN ---
Progress Note, Physician Chief Complaint: ZHANG History of Present Illness: no cp, sob, leg swelling, palpit - Current Medication List Current Medications: Active Medications Acetaminophen (Tylenol -) 650 mg PO Q6H PRN PRN Reason: PAIN OR FEVER Amlodipine Besylate (Norvasc -) 5 mg PO DAILY [facility] Aspirin (Asa -) 81 mg PO DAILY [facility] Atorvastatin Calcium (Lipitor -) 40 mg PO HS [facility] Last Admin: 11/15/18 21:49 Dose: 40 mg Clopidogrel Bisulfate (Plavix -) 75 mg PO DAILY [facility] Docusate Sodium (Colace -) 100 mg PO TID [facility] Last Admin: 11/16/18 06:16 Dose: Not Given Heparin Sodium (Porcine) (Heparin -) 1,000 unit IVPUSH PRN PRN PRN Reason: Heparin Last Admin: 11/16/18 01:40 Dose: 1,000 unit Heparin Sodium (Porcine) (Heparin -) 5,000 unit IVPUSH PRN PRN PRN Reason: Heparin Heparin Sodium (Porcine) 25, (000 unit/ Sodium Chloride) 500 mls @ 20 mls/hr IV TITR [facility]; Protocol Last Titration: 11/16/18 01:39 Dose: 1,700 unit/hr, 34 mls/hr Sodium Chloride (1/2 Normal Saline) 1,000 mls @ 75 mls/hr IV ASDIR [facility] Last Admin: 11/15/18 19:00 Dose: 75 mls/hr Lactic Acid (Lac-Hydrin 12) 1 applic TP BID PRN PRN Reason: WOUND CARE Ondansetron HCl (Zofran Odt -) 4 mg SL Q6H PRN PRN Reason: NAUSEA AND/OR VOMITING Polyethylene Glycol (Miralax (For Daily Use) -) 17 gm PO DAILY [facility] Senna (Senna -) 2 tab PO HS PRN PRN Reason: CONSTIPATION Tramadol HCl (Ultram -) 50 mg PO Q8H PRN PRN Reason: PAIN LEVEL 6-10 - Objective Vital Signs: Vital Signs Temperature 98.2 F 11/16/18 07:36 Pulse Rate 68 11/16/18 07:36 Respiratory Rate 16 11/16/18 07:36 Blood Pressure 188/67 H 11/16/18 07:36 O2 Sat by Pulse Oximetry (%) 97 11/15/18 21:00 Constitutional: Yes: No Distress, Calm, Obese Cardiovascular: Yes: Regular Rate and Rhythm, S1, S2. No: Gallop, Murmur Respiratory: Yes: Regular, CTA Bilaterally. No: Accessory Muscle Use Extremities: No: Cold Edema: No Neurological: Yes: Alert, Oriented Psychiatric: No: Agitated Labs: CBC, BMP 11/16/18 05:30 11/15/18 05:35 INR, PTT INR 1.43 (0.83-1.09) H 11/13/18 06:40 Assessment/Plan tele: NSR with APCs IMP: Acute renal failure, likely contrast induced, hyperK+ with ECG changes CAD s/p PCI one week ago PAF on NOAC Chronic Diastolic CHF PAF Sinus Issa, improved REC: -renal fxn improving, K normal--cont monitoring, continued renal f/u as doing -To continue DAPT, PCI one week ago. -Avoid AV jaja agents. Sinus issa is chronic and may be exacerbated by metabolic disturbances. Asx. -On heparin gtts for PAF (goal PTT 50-70); to resume NOAC when GFR stable. -BP uncontrolled: no AVN blockers as above; no RAAS blockers or thiazide while in ARF. start amlodipine and low dose hydralazine low dose
[2018-11-16] MEDS: ASPIRIN 81 MG CHEWABLE TABLETS PO SCH (09:07)
[2018-11-16] MEDS: POLYETHYLENE GLYCOL 3350 119 GM BTL PO SCH (09:07)
[2018-11-16] MEDS: CLOPIDOGREL BISULFATE 75 MG TABLET (FP) PO SCH (09:08)
[2018-11-16] MEDS: amLODIPine BESYLATE 5 MG TABLET (FP) PO SCH (09:08)
[2018-11-16] MEDS ORDERED: amLODIPine BESYLATE 5 MG TABLET (FP) PO SCH (10:00)
--- NOTE | 2018-11-16 10:22 | PN ---
Progress Note (short form) - Note Progress Note: Resting in NAD. No acute events overnight. Sinus gabriela improved. Intake & Output 11/13/18 11/14/18 11/15/18 11/16/18 23:59 23:59 23:59 23:59 Intake Total 1294 3201 3291 1298 Output Total 105 4140 4000 500 Balance 4518 -314 -708 798 Weight 329 lb 333 lb 338 lb 8 oz Last Vital Signs Temp Pulse Resp BP Pulse Ox 98.2 F 68 16 165/60 97 11/16/18 07:36 11/16/18 07:36 11/16/18 07:36 11/16/18 08:00 11/16/18 09:00 Active Medications Acetaminophen (Tylenol -) 650 mg PO Q6H PRN PRN Reason: PAIN OR FEVER Amlodipine Besylate (Norvasc -) 5 mg PO DAILY [facility] Last Admin: 11/16/18 09:08 Dose: 5 mg Aspirin (Asa -) 81 mg PO DAILY [facility] Last Admin: 11/16/18 09:07 Dose: 81 mg Atorvastatin Calcium (Lipitor -) 40 mg PO HS [facility] Last Admin: 11/15/18 21:49 Dose: 40 mg Clopidogrel Bisulfate (Plavix -) 75 mg PO DAILY [facility] Last Admin: 11/16/18 09:08 Dose: 75 mg Docusate Sodium (Colace -) 100 mg PO TID [facility] Last Admin: 11/16/18 06:16 Dose: Not Given Heparin Sodium (Porcine) (Heparin -) 1,000 unit IVPUSH PRN PRN PRN Reason: Heparin Last Admin: 11/16/18 01:40 Dose: 1,000 unit Heparin Sodium (Porcine) (Heparin -) 5,000 unit IVPUSH PRN PRN PRN Reason: Heparin Hydralazine HCl (Apresoline -) 25 mg PO TID [facility]ENNY Heparin Sodium (Porcine) 25, (000 unit/ Sodium Chloride) 500 mls @ 20 mls/hr IV TITR [facility]ENNY; Protocol Last Titration: 11/16/18 01:39 Dose: 1,700 unit/hr, 34 mls/hr Sodium Chloride (1/2 Normal Saline) 1,000 mls @ 75 mls/hr IV ASDIR [facility] Last Admin: 11/15/18 19:00 Dose: 75 mls/hr Lactic Acid (Lac-Hydrin 12) 1 applic TP BID PRN PRN Reason: WOUND CARE Ondansetron HCl (Zofran Odt -) 4 mg SL Q6H PRN PRN Reason: NAUSEA AND/OR VOMITING Polyethylene Glycol (Miralax (For Daily Use) -) 17 gm PO DAILY [facility] Last Admin: 11/16/18 09:07 Dose: 17 grams Senna (Senna -) 2 tab PO HS PRN PRN Reason: CONSTIPATION Tramadol HCl (Ultram -) 50 mg PO Q8H PRN PRN Reason: PAIN LEVEL 6-10 GENERAL: Awake, alert, and fully oriented, in no acute distress. HEAD: Normal with no signs of trauma. EYES: Pupils equal, round and reactive to light, extraocular movements intact, sclera anicteric, conjunctiva clear. No lid lag. EARS, NOSE, THROAT: Ears normal, nares patent, oropharynx clear without exudates. Moist mucous membranes. NECK: Normal range of motion, supple without lymphadenopathy, JVD, or masses. LUNGS: Breath sounds equal, clear to auscultation bilaterally. No wheezes, and no crackles. No accessory muscle use. HEART: Regular rate and rhythm, normal S1 and S2 without murmur, rub or gallop. ABDOMEN: Soft, nontender, distended, no guarding, no rebound, no masses. No hepatomegaly or splenomegaly. MUSCULOSKELETAL: Normal range of motion at all joints. No bony deformities or tenderness. No CVA tenderness. UPPER EXTREMITIES: 2+ pulses, warm, well-perfused. No cyanosis. No clubbing. Cap refill <2 seconds. No peripheral edema. LOWER EXTREMITIES: 2+ pulses, warm, well-perfused. 4+ pitting edema bilaterally. NEUROLOGICAL: Non-focal PSYCHIATRIC: Cooperative. Good eye contact. Appropriate mood and affect. SKIN: Warm, dry, normal turgor, no rashes or lesions noted. Laboratory Results - last 24 hr 11/15/18 11/15/18 11/15/18 12:26 12:30 15:34 WBC RBC Hgb Hct MCV MCH MCHC RDW Plt Count MPV PTT (Actin FS) 47.5 H POC Glucometer 84 Stool Occult Blood Negative 11/16/18 11/16/18 11/16/18 00:00 05:30 06:00 WBC 4.3 RBC 3.10 L Hgb 8.8 L Hct 26.1 L MCV 84.4 MCH 28.4 MCHC 33.6 RDW 17.8 H Plt Count 179 MPV 9.0 PTT (Actin FS) 41.4 H 37.4 H POC Glucometer Stool Occult Blood ASSESSMENT/PLAN: Improving ZHANG: (?) WATSON Recent PCI with stent Morbid Obesity Probable OSAS DM Lymphoma HTN CAD Bradycardia IVF Cardiac meds per Cardiology O2 as needed Plavix Cardiac Telemetry monitoring Dr Monet
[2018-11-16 11:55] LABS: BLOOD UREA NITROGEN 44.7 mg/dL (7-18); CALCIUM 7.6 mg/dL (8.5-10.1); CREATININE 1.9 mg/dL (0.55-1.3); POTASSIUM 4.5 mmol/L (3.5-5.1)
--- NOTE | 2018-11-16 12:29 | PN ---
Progress Note, Physician Chief Complaint: patient seen and examined awake alert sinus bradycardia potassium improved - Current Medication List Current Medications: Active Medications Acetaminophen (Tylenol -) 650 mg PO Q6H PRN PRN Reason: PAIN OR FEVER Amlodipine Besylate (Norvasc -) 5 mg PO DAILY [facility] Last Admin: 11/16/18 09:08 Dose: 5 mg Aspirin (Asa -) 81 mg PO DAILY [facility] Last Admin: 11/16/18 09:07 Dose: 81 mg Atorvastatin Calcium (Lipitor -) 40 mg PO HS [facility] Last Admin: 11/15/18 21:49 Dose: 40 mg Clopidogrel Bisulfate (Plavix -) 75 mg PO DAILY [facility] Last Admin: 11/16/18 09:08 Dose: 75 mg Docusate Sodium (Colace -) 100 mg PO TID [facility] Last Admin: 11/16/18 06:16 Dose: Not Given Heparin Sodium (Porcine) (Heparin -) 1,000 unit IVPUSH PRN PRN PRN Reason: Heparin Last Admin: 11/16/18 01:40 Dose: 1,000 unit Heparin Sodium (Porcine) (Heparin -) 5,000 unit IVPUSH PRN PRN PRN Reason: Heparin Last Admin: 11/16/18 10:36 Dose: 5,000 unit Hydralazine HCl (Apresoline -) 25 mg PO TID [facility] Heparin Sodium (Porcine) 25, (000 unit/ Sodium Chloride) 500 mls @ 20 mls/hr IV TITR [facility]; Protocol Last Titration: 11/16/18 10:33 Dose: 1,750 unit/hr, 35 mls/hr Sodium Chloride (1/2 Normal Saline) 1,000 mls @ 75 mls/hr IV ASDIR [facility] Last Admin: 11/15/18 19:00 Dose: 75 mls/hr Lactic Acid (Lac-Hydrin 12) 1 applic TP BID PRN PRN Reason: WOUND CARE Ondansetron HCl (Zofran Odt -) 4 mg SL Q6H PRN PRN Reason: NAUSEA AND/OR VOMITING Polyethylene Glycol (Miralax (For Daily Use) -) 17 gm PO DAILY [facility] Last Admin: 11/16/18 09:07 Dose: 17 grams Senna (Senna -) 2 tab PO HS PRN PRN Reason: CONSTIPATION Tramadol HCl (Ultram -) 50 mg PO Q8H PRN PRN Reason: PAIN LEVEL 6-10 - Objective Vital Signs: Vital Signs Temperature 98.2 F 11/16/18 07:36 Pulse Rate 66 11/16/18 10:42 Respiratory Rate 19 11/16/18 10:42 Blood Pressure 161/62 11/16/18 10:42 O2 Sat by Pulse Oximetry (%) 97 11/16/18 09:00 Constitutional: Yes: Calm Cardiovascular: Yes: Bradycardia, S1, S2 Respiratory: Yes: CTA Bilaterally Gastrointestinal: Yes: Normal Bowel Sounds, Soft, Abdomen, Obese Edema: Yes Neurological: Yes: Alert, Oriented Labs: CBC, BMP 11/16/18 05:30 11/16/18 05:30 INR, PTT INR 1.43 (0.83-1.09) H 11/13/18 06:40 Problem List - Problems (1) ZHANG (acute kidney injury) Assessment/Plan: possible contrsat induced nephropathy creatinine trending down encourage oral fluid intake Code(s): N17.9 - ACUTE KIDNEY FAILURE, UNSPECIFIED (2) Afib Assessment/Plan: on iv heparin drip till creatinine stabilizes Code(s): I48.91 - UNSPECIFIED ATRIAL FIBRILLATION Qualifiers: Atrial fibrillation type: unspecified Qualified Code(s): I48.91 - Unspecified atrial fibrillation (3) HTN (hypertension) Assessment/Plan: elevated creatinine no diuretic or RAAS low dose norvasc and hydralazine Code(s): I10 - ESSENTIAL (PRIMARY) HYPERTENSION (4) CAD (coronary artery disease) Assessment/Plan: s/p PCI one week ago lipitor plavix and asprin Code(s): I25.10 - ATHSCL HEART DISEASE OF [place] CORONARY ARTERY W/O ANG PCTRS
--- NOTE | 2018-11-16 13:33 | PN ---
Progress Note, Physician History of Present Illness: Pt seen and examined at bedside. He is awake and alert. He complains of discomfort from the cummings. He denies shortness of breath. - Current Medication List Current Medications: Active Medications Acetaminophen (Tylenol -) 650 mg PO Q6H PRN PRN Reason: PAIN OR FEVER Amlodipine Besylate (Norvasc -) 5 mg PO DAILY [facility] Last Admin: 11/16/18 09:08 Dose: 5 mg Aspirin (Asa -) 81 mg PO DAILY [facility] Last Admin: 11/16/18 09:07 Dose: 81 mg Atorvastatin Calcium (Lipitor -) 40 mg PO HS [facility] Last Admin: 11/15/18 21:49 Dose: 40 mg Clopidogrel Bisulfate (Plavix -) 75 mg PO DAILY [facility] Last Admin: 11/16/18 09:08 Dose: 75 mg Docusate Sodium (Colace -) 100 mg PO TID [facility] Last Admin: 11/16/18 06:16 Dose: Not Given Heparin Sodium (Porcine) (Heparin -) 1,000 unit IVPUSH PRN PRN PRN Reason: Heparin Last Admin: 11/16/18 01:40 Dose: 1,000 unit Heparin Sodium (Porcine) (Heparin -) 5,000 unit IVPUSH PRN PRN PRN Reason: Heparin Last Admin: 11/16/18 10:36 Dose: 5,000 unit Hydralazine HCl (Apresoline -) 25 mg PO TID [facility] Heparin Sodium (Porcine) 25, (000 unit/ Sodium Chloride) 500 mls @ 20 mls/hr IV TITR [facility]; Protocol Last Titration: 11/16/18 10:33 Dose: 1,750 unit/hr, 35 mls/hr Sodium Chloride (1/2 Normal Saline) 1,000 mls @ 75 mls/hr IV ASDIR [facility] Last Admin: 11/15/18 19:00 Dose: 75 mls/hr Lactic Acid (Lac-Hydrin 12) 1 applic TP BID PRN PRN Reason: WOUND CARE Ondansetron HCl (Zofran Odt -) 4 mg SL Q6H PRN PRN Reason: NAUSEA AND/OR VOMITING Polyethylene Glycol (Miralax (For Daily Use) -) 17 gm PO DAILY [facility] Last Admin: 11/16/18 09:07 Dose: 17 grams Senna (Senna -) 2 tab PO HS PRN PRN Reason: CONSTIPATION Tramadol HCl (Ultram -) 50 mg PO Q8H PRN PRN Reason: PAIN LEVEL 6-10 - Objective Vital Signs: Vital Signs Temperature 98.2 F 11/16/18 07:36 Pulse Rate 64 11/16/18 12:00 Respiratory Rate 18 11/16/18 12:00 Blood Pressure 151/60 11/16/18 12:00 O2 Sat by Pulse Oximetry (%) 97 11/16/18 09:00 Constitutional: Yes: Calm Eyes: Yes: Conjunctiva Clear HENT: Yes: Atraumatic Neck: Yes: Supple Cardiovascular: Yes: S1, S2 Respiratory: Yes: CTA Bilaterally Gastrointestinal: Yes: Soft, Abdomen, Obese, Hernia Genitourinary: Yes: Cummings Present Musculoskeletal: Yes: WNL Edema: Yes Edema: LLE: 2+, RLE: 2+ Integumentary: Yes: Venous Stasis Changes Neurological: Yes: Oriented Psychiatric: Yes: Oriented Labs: CBC, BMP 11/16/18 05:30 11/16/18 05:30 INR, PTT INR 1.43 (0.83-1.09) H 11/13/18 06:40 Problem List - Problems (1) Renal failure Code(s): N19 - UNSPECIFIED KIDNEY FAILURE Qualifiers: Renal failure chronicity: acute Acute renal failure type: unspecified Qualified Code(s): N17.9 - Acute kidney failure, unspecified (2) ZHANG (acute kidney injury) Code(s): N17.9 - ACUTE KIDNEY FAILURE, UNSPECIFIED (3) CHF (congestive heart failure) Code(s): I50.9 - HEART FAILURE, UNSPECIFIED Qualifiers: Heart failure chronicity: chronic congestive heart failure (4) CKD (chronic kidney disease) Code(s): N18.9 - CHRONIC KIDNEY DISEASE, UNSPECIFIED Assessment/Plan Current Medications Generic Name Dose Route Start Last Admin Trade Name Freq PRN Reason Stop Dose Admin Acetaminophen 650 mg 11/15/18 18:38 Tylenol - PO Q6H PRN PAIN OR FEVER Amlodipine Besylate 5 mg 11/16/18 10:00 11/16/18 09:08 Norvasc - PO 5 mg DAILY [facility] Administration Aspirin 81 mg 11/16/18 10:00 11/16/18 09:07 Asa - PO 81 mg DAILY [facility]NY Administration Atorvastatin Calcium 40 mg 11/15/18 22:00 11/15/18 21:49 Lipitor - PO 40 mg HS [facility]ENNY Administration Clopidogrel Bisulfate 75 mg 11/16/18 10:00 11/16/18 09:08 Plavix - PO 75 mg DAILY [facility] Administration Docusate Sodium 100 mg 11/15/18 22:00 11/16/18 06:16 Colace - PO Not Given TID [facility]ENNY Heparin Sodium (Porcine) 1,000 unit 11/15/18 18:38 11/16/18 01:40 Heparin - IVPUSH 1,000 unit PRN PRN Administration Heparin Heparin Sodium (Porcine) 5,000 unit 11/15/18 18:38 11/16/18 10:36 Heparin - IVPUSH 5,000 unit PRN PRN Administration Heparin Hydralazine HCl 25 mg 11/16/18 14:00 Apresoline - PO TID [facility]ENNY Heparin Sodium (Porcine) 25, 500 mls @ 20 mls/hr 11/15/18 18:38 11/16/18 10: 33 000 unit/ Sodium Chloride IV 1,750 unit/hr TITR [facility]ENNY 35 mls/hr Titration Protocol 1,000 UNIT/HR Sodium Chloride 1,000 mls @ 75 mls/hr 11/15/18 18:38 11/15/18 19:00 1/2 Normal Saline IV 75 mls/hr ASDIR [facility]ENNY Administration Lactic Acid 1 applic 11/15/18 18:38 Lac-Hydrin 12 TP BID PRN WOUND CARE Ondansetron HCl 4 mg 11/15/18 18:38 Zofran Odt - SL Q6H PRN NAUSEA AND/OR VOMITING Polyethylene Glycol 17 gm 11/16/18 10:00 11/16/18 09:07 Miralax (For Daily Use) - PO 17 grams DAILY [facility] Administration Senna 2 tab 11/15/18 18:38 Senna - PO HS PRN CONSTIPATION Tramadol HCl 50 mg 11/15/18 18:38 Ultram - PO Q8H PRN PAIN LEVEL 6-10 Impression 1. CKD 2. ZHANG 3. s/p cardiac stent 4. morbid obesity 5. DM 6. PVD 7. Gout 8. Large cell granular leukemia/lymphoma 9. anemia 10. hyperkalemia Plan - renal function is improving - can d/c cummings - can stop fluids and monitor renal function - monitor bp - arb on hold - cyclosporin on hold for now, can restart tomorrow if renal function improved further - potassium is improved - avoid nsaids
[2018-11-16] MEDS: hydrALAZINE HCL 25 MG TABLET (FP) PO SCH ×2 (14:07→21:05)
[2018-11-16] MEDS ORDERED: PT OWN MED DRAWER 7, Y5N ONE (15:42)
[2018-11-16] MEDS: HEPARIN - 25,000 UNIT in SODIUM CHLORIDE 495 ML IV SCH (16:56)
[2018-11-16] MEDS: ATORVASTATIN CA 40 MG TABLET (FP) PO SCH (21:05)
[2018-11-17] MEDS: hydrALAZINE HCL 25 MG TABLET (FP) PO SCH (05:15)
[2018-11-17] MEDS: DOCUSATE SODIUM 100 MG CAPSULE (FP) PO SCH (05:17)
[2018-11-17 05:19] VITALS: TEMP 98.2
[2018-11-17 07:23] LABS: BASO % 0.7 % (0-2.0); EOS % 8.1 % (0-4.5); HEMATOCRIT 26.1 % (35.4-49); HEMOGLOBIN 8.7 GM/dL (11.7-16.9); LYMPH % 27.7 % (8-40); MCH 28.2 pg (25.7-33.7); MCHC 33.3 g/dl (32.0-35.9); MEAN CELL VOLUME 84.7 fl (80-96); MEAN PLT VOLUME 9.6 fl (7.5-11.1); MONO % 16.1 % (3.8-10.2); NEUT % 47.4 % (42.8-82.8); PLATELET COUNT 194 K/MM3 (134-434); RBC 3.08 M/mm3 (4.00-5.60); RDW 18.2 % (11.9-15.9); WHITE BLOOD COUNT 3.9 K/mm3 (4.0-10.0)
[2018-11-17 07:49] LABS: ALBUMIN 2.4 g/dl (3.4-5.0); BILIRUBIN,TOTAL 0.6 mg/dL (0.2-1); CALCIUM 7.9 mg/dL (8.5-10.1); CREATININE 1.3 mg/dL (0.55-1.3); POTASSIUM 4.2 mmol/L (3.5-5.1); TOT PROT 5.9 g/dl (6.4-8.2)
[2018-11-17 08:38] VITALS: BP 155/61; PULSE 61
[2018-11-17] MEDS: CLOPIDOGREL BISULFATE 75 MG TABLET (FP) PO SCH (09:22)
[2018-11-17] MEDS: amLODIPine BESYLATE 5 MG TABLET (FP) PO SCH (09:22)
[2018-11-17] MEDS: ASPIRIN 81 MG CHEWABLE TABLETS PO SCH (09:22)
[2018-11-17] MEDS: POLYETHYLENE GLYCOL 3350 119 GM BTL PO SCH (09:35)
[2018-11-17] MEDS ORDERED: amLODIPine BESYLATE 5 MG TABLET (FP) PO ONE (11:04)
--- NOTE | 2018-11-17 11:06 | DS ---
Physical Examination Vital Signs: Vital Signs Temperature 98.2 F 11/17/18 04:00 Pulse Rate 61 11/17/18 08:00 Respiratory Rate 19 11/17/18 09:00 Blood Pressure 155/61 11/17/18 08:00 O2 Sat by Pulse Oximetry (%) 97 11/17/18 09:00 Findings/Remarks: S/P CARDIAC CATH THIS WEEK AND DEVELOPED WEAKNESS WITH TACHYCARDIA THIS MORNING CAME TO ED WITH HIS FOUND TO HAVE ACUTE RENAL FAILURE CREATININE 6. H/O MORBID OBESITY, HTN, DM, GOUT, LIPIDEMIA, CAD S/P CARDIAC CATH WITH STENT THIS WEEK. VENOUS INSUFFICIENCY AND LEG EDEMA. Constitutional: Yes: Well Nourished, No Distress, Calm, Obese Cardiovascular: Yes: Regular Rate and Rhythm Respiratory: Yes: Regular Gastrointestinal: Yes: Normal Bowel Sounds, Soft, Abdomen, Obese Renal/: Yes: WNL Musculoskeletal: Yes: WNL Extremities: Yes: WNL Edema: No Peripheral Pulses WNL: Yes Neurological: Yes: Alert, Oriented Psychiatric: Yes: Alert, Oriented Labs: CBC, BMP 11/17/18 06:10 11/17/18 06:10 Discharge Summary Problems reviewed: Yes Reason For Visit: RENAL FAILURE Current Active Problems Elevated troponin (Acute) Renal failure (Acute) Condition: Stable - Instructions Diet, Activity, Other Instructions: Low sodium diet Referrals: Shira Anderson MD [Staff Physician] - Diomedes Neil MD [Primary Care Provider] - Monroe Orellana MD [Staff Physician] - Disposition: HOME - Home Medications Comprehensive Discharge Medication List: Ambulatory Orders Clopidogrel Bisulfate [Plavix -] 75 mg PO DAILY 05/17/16 Gabapentin 300 mg PO AM 05/17/16 Apixaban [Eliquis -] 5 mg PO BID tablet 07/25/16 Colchicine 0.6 mg PO DAILY 12/02/16 Meclizine HCl [Antivert -] 1 tab PO PRN 10/10/18 Allopurinol [Zyloprim -] 300 mg PO DAILY 11/13/18 Cyclosporine 100 mg PO DAILY 11/14/18 Cyclosporine [SandIMMUNE (NF) -] 100 mg PO DAILY 11/14/18 Dulaglutide [Trulicity] 0.75 mg SQ WEEKLY 11/14/18 Gabapentin 600 mg PO HS 11/14/18 Acetaminophen [Tylenol .Regular Strength -] 650 mg PO Q6H PRN tablet 11/17/18 Amlodipine Besylate [Norvasc -] 10 mg PO DAILY #30 tablet 11/17/18 Ammonium Lactate Lotion [Lac-Hydrin 12] 1 applic TP BID PRN #1 bottle 11/17/18 Apixaban [Eliquis -] 5 mg PO BID tablet 11/17/18 Aspirin [ASA -] 81 mg PO DAILY tab.chew 11/17/18 Atorvastatin Ca [Lipitor] 40 mg PO HS #30 tablet 11/17/18 Clopidogrel Bisulfate [Plavix -] 75 mg PO DAILY tablet 11/17/18 Docusate Sodium [Colace -] 100 mg PO TID #90 capsule 11/17/18 Polyethylene Glycol 3350 [Miralax 119 gm Btl -] 17 gm PO DAILY #1 bottle Sennosides [Senna -] 2 tab PO HS PRN #60 tablet 11/17/18 Sodium Zirconium Cyclosilicate [Lokelma] 10 gm PO BID #60 packet 11/17/18 hydrALAZINE HCL [Apresoline -] 25 mg PO TID #90 tablet 11/17/18 Prescription Drug Monitoring Program (I-STOP) results: I-STOP reviewed and no issues identified
--- NOTE | 2018-11-17 11:23 | PN ---
Progress Note (short form) - Note Progress Note: s: no chest pain, palps, dizziness, dyspnea Current Medications Acetaminophen (Tylenol -) 650 mg PO Q6H PRN PRN Reason: PAIN OR FEVER Amlodipine Besylate (Norvasc -) 5 mg PO DAILY [facility] Last Admin: 11/17/18 09:22 Dose: 5 mg Apixaban (Eliquis -) 5 mg PO BID [facility] Aspirin (Asa -) 81 mg PO DAILY [facility] Last Admin: 11/17/18 09:22 Dose: 81 mg Atorvastatin Calcium (Lipitor -) 40 mg PO HS [facility] Last Admin: 11/16/18 21:05 Dose: 40 mg Clopidogrel Bisulfate (Plavix -) 75 mg PO DAILY [facility] Last Admin: 11/17/18 09:22 Dose: 75 mg Docusate Sodium (Colace -) 100 mg PO TID [facility] Last Admin: 11/17/18 05:17 Dose: Not Given Hydralazine HCl (Apresoline -) 25 mg PO TID [facility] Last Admin: 11/17/18 05:15 Dose: 25 mg Lactic Acid (Lac-Hydrin 12) 1 applic TP BID PRN PRN Reason: WOUND CARE Ondansetron HCl (Zofran Odt -) 4 mg SL Q6H PRN PRN Reason: NAUSEA AND/OR VOMITING Polyethylene Glycol (Miralax (For Daily Use) -) 17 gm PO DAILY [facility] Last Admin: 11/17/18 09:35 Dose: Not Given Senna (Senna -) 2 tab PO HS PRN PRN Reason: CONSTIPATION Tramadol HCl (Ultram -) 50 mg PO Q8H PRN PRN Reason: PAIN LEVEL 6-10 Last Admin: 11/17/18 04:20 Dose: 50 mg Vital Signs Period Temp Pulse Resp BP Sys/Reddy Pulse Ox Last 24 Hr 98.0 F-98.5 F 61-93 16-20 150-176/55-68 97-97 Constitutional: Yes: No Distress, Calm, Obese Cardiovascular: Yes: Regular Rate and Rhythm, S1, S2. No: Gallop, Murmur Respiratory: Yes: Regular, CTA Bilaterally. No: Accessory Muscle Use Extremities: No: Cold Edema: No Neurological: Yes: Alert, Oriented Psychiatric: No: Agitated Assessment/Plan tele: NSR with APCs IMP: Acute renal failure, likely contrast induced, hyperK+ with ECG changes CAD s/p PCI one week ago PAF on NOAC Chronic Diastolic CHF PAF Sinus Gabriela, improved REC: -renal fxn improving, K normal -To continue DAPT, PCI one week ago. -Avoid AV jaja agents. Sinus gabriela is chronic and may be exacerbated by metabolic disturbances. Asx. -eliquis resumed, Cr improved -ARB was held for ZHANG, cont holding and consider resuming as outpatient if Cr stable. BP improving with starting amlodipine, hydralazine, continue. Restart home torsemide - stable for dc from cardiac perspective, outpatient follow up
--- NOTE | 2018-11-17 11:27 | PN ---
Progress Note (short form) - Note Progress Note: Resting in NAD. No acute events overnight. Intake & Output 11/14/18 11/15/18 11/16/18 11/17/18 23:59 23:59 23:59 23:59 Intake Total 3201 3291 2643 420 Output Total 4140 4000 1800 Balance -979 -679 643 420 Weight 333 lb 338 lb 8 oz Last Vital Signs Temp Pulse Resp BP Pulse Ox 98.2 F 61 19 155/61 97 11/17/18 04:00 11/17/18 08:00 11/17/18 09:00 11/17/18 08:00 11/17/18 09:00 Active Medications Acetaminophen (Tylenol -) 650 mg PO Q6H PRN PRN Reason: PAIN OR FEVER Amlodipine Besylate (Norvasc -) 5 mg PO DAILY [facility] Last Admin: 11/17/18 09:22 Dose: 5 mg Apixaban (Eliquis -) 5 mg PO BID [facility] Aspirin (Asa -) 81 mg PO DAILY [facility] Last Admin: 11/17/18 09:22 Dose: 81 mg Atorvastatin Calcium (Lipitor -) 40 mg PO HS [facility] Last Admin: 11/16/18 21:05 Dose: 40 mg Clopidogrel Bisulfate (Plavix -) 75 mg PO DAILY [facility] Last Admin: 11/17/18 09:22 Dose: 75 mg Docusate Sodium (Colace -) 100 mg PO TID [facility] Last Admin: 11/17/18 05:17 Dose: Not Given Hydralazine HCl (Apresoline -) 25 mg PO TID [facility] Last Admin: 11/17/18 05:15 Dose: 25 mg Lactic Acid (Lac-Hydrin 12) 1 applic TP BID PRN PRN Reason: WOUND CARE Ondansetron HCl (Zofran Odt -) 4 mg SL Q6H PRN PRN Reason: NAUSEA AND/OR VOMITING Polyethylene Glycol (Miralax (For Daily Use) -) 17 gm PO DAILY [facility] Last Admin: 11/17/18 09:35 Dose: Not Given Senna (Senna -) 2 tab PO HS PRN PRN Reason: CONSTIPATION Tramadol HCl (Ultram -) 50 mg PO Q8H PRN PRN Reason: PAIN LEVEL 6-10 Last Admin: 11/17/18 04:20 Dose: 50 mg GENERAL: Awake, alert, and fully oriented, in no acute distress. HEAD: Normal with no signs of trauma. EYES: Pupils equal, round and reactive to light, extraocular movements intact, sclera anicteric, conjunctiva clear. No lid lag. EARS, NOSE, THROAT: Ears normal, nares patent, oropharynx clear without exudates. Moist mucous membranes. NECK: Normal range of motion, supple without lymphadenopathy, JVD, or masses. LUNGS: Breath sounds equal, clear to auscultation bilaterally. No wheezes, and no crackles. No accessory muscle use. HEART: Regular rate and rhythm, normal S1 and S2 without murmur, rub or gallop. ABDOMEN: Soft, nontender, distended, no guarding, no rebound, no masses. No hepatomegaly or splenomegaly. MUSCULOSKELETAL: Normal range of motion at all joints. No bony deformities or tenderness. No CVA tenderness. UPPER EXTREMITIES: 2+ pulses, warm, well-perfused. No cyanosis. No clubbing. Cap refill <2 seconds. No peripheral edema. LOWER EXTREMITIES: 2+ pulses, warm, well-perfused. 4+ pitting edema bilaterally. NEUROLOGICAL: Non-focal PSYCHIATRIC: Cooperative. Good eye contact. Appropriate mood and affect. SKIN: Warm, dry, normal turgor, no rashes or lesions noted. Laboratory Results - last 24 hr 11/16/18 11/16/18 11/16/18 05:30 15:30 18:04 WBC RBC Hgb Hct MCV MCH MCHC RDW Plt Count MPV Absolute Neuts (auto) Neutrophils % Lymphocytes % Monocytes % Eosinophils % Basophils % Nucleated RBC % PTT (Actin FS) 51.1 H Sodium 145 Potassium 4.5 Chloride 119 H Carbon Dioxide 18 L Anion Gap 8 BUN 44.7 H Creatinine 1.9 H Est GFR (CKD-EPI)AfAm 42.84 Est GFR (CKD-EPI)NonAf 36.96 Random Glucose 107 H Calcium 7.6 L Total Bilirubin AST ALT Alkaline Phosphatase Total Protein Albumin Stool Occult Blood Negative 11/17/18 11/17/18 11/17/18 06:10 06:10 06:10 WBC 3.9 L RBC 3.08 L Hgb 8.7 L Hct 26.1 L MCV 84.7 MCH 28.2 MCHC 33.3 RDW 18.2 H Plt Count 194 MPV 9.6 Absolute Neuts (auto) 1.8 Neutrophils % 47.4 D Lymphocytes % 27.7 D Monocytes % 16.1 H Eosinophils % 8.1 H Basophils % 0.7 Nucleated RBC % 0 PTT (Actin FS) 31.7 Sodium 145 Potassium 4.2 Chloride 118 H Carbon Dioxide 19 L Anion Gap 7 L BUN 30.0 H Creatinine 1.3 Est GFR (CKD-EPI)AfAm 67.78 Est GFR (CKD-EPI)NonAf 58.48 Random Glucose 99 Calcium 7.9 L Total Bilirubin 0.6 AST 16 ALT 12 L Alkaline Phosphatase 139 H Total Protein 5.9 L Albumin 2.4 L Stool Occult Blood ASSESSMENT/PLAN: Improving ZHANG: (?) WATSON Recent PCI with stent Morbid Obesity Probable OSAS DM Lymphoma HTN CAD Bradycardia Eliquis Cardiac meds per Cardiology Will need formal sleep evaluation after discharge Dr Monet
--- NOTE | 2018-11-17 12:36 | PN ---
Progress Note, Physician History of Present Illness: Pt eager to go home. He denies shortness of breath. - Objective Vital Signs: Vital Signs Temperature 98.2 F 11/17/18 04:00 Pulse Rate 61 11/17/18 08:00 Respiratory Rate 19 11/17/18 09:00 Blood Pressure 155/61 11/17/18 08:00 O2 Sat by Pulse Oximetry (%) 97 11/17/18 09:00 Constitutional: Yes: Calm Eyes: Yes: Conjunctiva Clear HENT: Yes: Atraumatic Cardiovascular: Yes: S1, S2 Respiratory: Yes: CTA Bilaterally Gastrointestinal: Yes: Soft, Abdomen, Obese, Hernia Genitourinary: Yes: WNL Musculoskeletal: Yes: WNL Edema: Yes Edema: LLE: 2+, RLE: 2+ Neurological: Yes: Oriented Psychiatric: Yes: Oriented Labs: CBC, BMP 11/17/18 06:10 11/17/18 06:10 INR, PTT INR 1.43 (0.83-1.09) H 11/13/18 06:40 Problem List - Problems (1) Renal failure Code(s): N19 - UNSPECIFIED KIDNEY FAILURE Qualifiers: Renal failure chronicity: acute Acute renal failure type: unspecified Qualified Code(s): N17.9 - Acute kidney failure, unspecified (2) ZHANG (acute kidney injury) Code(s): N17.9 - ACUTE KIDNEY FAILURE, UNSPECIFIED (3) CHF (congestive heart failure) Code(s): I50.9 - HEART FAILURE, UNSPECIFIED Qualifiers: Heart failure chronicity: chronic congestive heart failure (4) CKD (chronic kidney disease) Code(s): N18.9 - CHRONIC KIDNEY DISEASE, UNSPECIFIED Assessment/Plan Current Medications Generic Name Dose Route Start Last Admin Trade Name Freq PRN Reason Stop Dose Admin Acetaminophen 650 mg 11/15/18 18:38 Tylenol - PO Q6H PRN PAIN OR FEVER Amlodipine Besylate 5 mg 11/16/18 10:00 11/16/18 09:08 Norvasc - PO 5 mg DAILY JENNY Administration Aspirin 81 mg 11/16/18 10:00 11/16/18 09:07 Asa - PO 81 mg DAILY JENNY Administration Atorvastatin Calcium 40 mg 11/15/18 22:00 11/15/18 21:49 Lipitor - PO 40 mg HS JENNY Administration Clopidogrel Bisulfate 75 mg 11/16/18 10:00 11/16/18 09:08 Plavix - PO 75 mg DAILY JENNY Administration Docusate Sodium 100 mg 11/15/18 22:00 11/16/18 06:16 Colace - PO Not Given TID JENNY Heparin Sodium (Porcine) 1,000 unit 11/15/18 18:38 11/16/18 01:40 Heparin - IVPUSH 1,000 unit PRN PRN Administration Heparin Heparin Sodium (Porcine) 5,000 unit 11/15/18 18:38 11/16/18 10:36 Heparin - IVPUSH 5,000 unit PRN PRN Administration Heparin Hydralazine HCl 25 mg 11/16/18 14:00 Apresoline - PO TID [facility] Heparin Sodium (Porcine) 25, 500 mls @ 20 mls/hr 11/15/18 18:38 11/16/18 10: 33 000 unit/ Sodium Chloride IV 1,750 unit/hr TITR JENNY 35 mls/hr Titration Protocol 1,000 UNIT/HR Sodium Chloride 1,000 mls @ 75 mls/hr 11/15/18 18:38 11/15/18 19:00 1/2 Normal Saline IV 75 mls/hr ASDIR JENNY Administration Lactic Acid 1 applic 11/15/18 18:38 Lac-Hydrin 12 TP BID PRN WOUND CARE Ondansetron HCl 4 mg 11/15/18 18:38 Zofran Odt - SL Q6H PRN NAUSEA AND/OR VOMITING Polyethylene Glycol 17 gm 11/16/18 10:00 11/16/18 09:07 Miralax (For Daily Use) - PO 17 grams DAILY JENNY Administration Senna 2 tab 11/15/18 18:38 Senna - PO HS PRN CONSTIPATION Tramadol HCl 50 mg 11/15/18 18:38 Ultram - PO Q8H PRN PAIN LEVEL 6-10 Impression 1. CKD 2. ZHANG 3. s/p cardiac stent 4. morbid obesity 5. DM 6. PVD 7. Gout 8. Large cell granular leukemia/lymphoma 9. anemia 10. 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
[2018-11-17] MEDS ORDERED: APIXABAN 5 MG TABLET PO SCH (22:00)
== END 2018-11-17 12:08 | disposition home or self-care (01) | DRG 683 ==
LOC: JER 06:17 → JERBED 10:40 → JICU 11:44 → J2W 11-15 18:31
PROVIDERS: ADMIT Family Medicine; ATTEND Family Medicine
DX: N17.9 Acute kidney failure, unspecified (principal); Z68.43 Body mass index [BMI] 50.0-59.9, adult; I50.32 Chronic diastolic (congestive) heart failure; C85.90 Non-Hodgkin lymphoma, unspecified, unspecified site; I13.0 Hypertensive heart and chronic kidney disease with heart failure and stage 1 through stage 4 chronic kidney disease, or unspecified chronic kidney disease; I50.22 Chronic systolic (congestive) heart failure; N14.1 Nephropathy induced by other drugs, medicaments and biological substances; T50.8X5A Adverse effect of diagnostic agents, initial encounter; R00.1 Bradycardia, unspecified; E87.5 Hyperkalemia; R79.89 Other specified abnormal findings of blood chemistry; E11.42 Type 2 diabetes mellitus with diabetic polyneuropathy; I25.10 Atherosclerotic heart disease of native coronary artery without angina pectoris; E66.01 Morbid (severe) obesity due to excess calories; I48.91 Unspecified atrial fibrillation; K21.9 Gastro-esophageal reflux disease without esophagitis; I48.0 Paroxysmal atrial fibrillation; D64.9 Anemia, unspecified; M10.9 Gout, unspecified; G47.33 Obstructive sleep apnea (adult) (pediatric); E11.22 Type 2 diabetes mellitus with diabetic chronic kidney disease; N18.9 Chronic kidney disease, unspecified; Z95.5 Presence of coronary angioplasty implant and graft
CPT/HCPCS: 36415; 71045-TC-FY; 76775; 80048; 80053; 80061; 81003; 82272; 82550; 82565; 82962; 83721; 83735; 83935; 84100; 84300; 84484; 85025; 85027; 85610; 85730; 87086; 93005; 93010; 93306-TC; 93308; 94640; 99285-25; J1644

== ENCOUNTER 2018-12-14 13:00 | Inpatient (IN) | payer OTHER ==
--- NOTE | 2018-12-14 13:06 | PDOC ---
Rapid Medical Evaluation Time Seen by Provider: 12/14/18 13:02 Medical Evaluation: Allergies Allergy/AdvReac Type Severity Reaction Status Date / Time tuna oil Allergy Verified 11/13/18 20:36 12/14/18 13:02 CC: sent for admission for anemia PE: No MM pallor. obese abdomen. Orders: admission labs Patient will proceed to ED for further evaluation. 12/14/18 13:05 Discharge Disposition - Diagnosis Anemia - Referrals - Patient Instructions - Post Discharge Activity
--- NOTE | 2018-12-14 14:18 | PDOC ---
Attending Attestation - Resident Resident Name: Konstantin Chopra - ED Attending Attestation I have performed the following: I have examined & evaluated the patient, The case was reviewed & discussed with the resident, I agree w/resident's findings & plan, Exceptions are as noted - HPI HPI: 12/14/18 14:55 63yo male with pmhx of chf, leukemia, anemia from iron deficiency with increasing swelling to LE and cough productive yellow sputum. States cough has been present x 4 days. Pt denies f/c. States sore throat from coughing. Cough productive yellow sputum. Also states L leg pain - hx of dvt in the leg, on eliquis, but states pain has worsened. Pt denies abd pain. Denies cp. C/o sob. Seen by Dr. Neil today and sent for further evaluation. Also states iron was low and pt was anemic. Pt sent for admission. - Physicial Exam PE: 12/14/18 14:58 Gen: aaox3, mild conversational dyspnea heent: mmm, nares clear, posterior pharynx clear lungs: coarse bs b/l bases heart: +s1s2 reg abd: soft, nt, nd, obese ext: 4+pitting edema with lymphedema changes to LE, L calf ttp - Medical Decision Making 12/14/18 15:08 a/p: 63yo male sent for eval of sob, cough, low blood counts, low iron -will send labs, cxr, ekg -pt will need ultrasound of LE -will need admission -concern for pna vs mucopurulent bronchitis -symptomatic anemia -will monitor and reassess 12/14/18 15:12 cxr clear 12/14/18 15:14 labs pending case discussed with Dr. Griffin who accepts pt to service 12/14/18 15:22 h/h and wbc at baseline 12/14/18 16:35 pt with gopal on ckd pt without a dvt pt admitted to DR. Griffin Heart Score/ECG Review - ECG Intrepretation Comment:: 12/14/18 15:12 sinus at 62, 1st degree av block, L axis, no acute st/t wave findings
--- NOTE | 2018-12-14 14:31 | PDOC ---
History of Present Illness - General Chief Complaint: Abnormal Lab Results (Outside) Stated Complaint: SENT BY DR FREEDMAN // IV FLUIDS Time Seen by Provider: 12/14/18 13:02 History Source: Patient Exam Limitations: No Limitations - History of Present Illness Initial Comments: 12/14/18 14:19 Dashawn Aguilar is a 63M with PMH CHF, CKD, anemia, leukemia, IDT2DM, cardiac stent x4 last done 1 month ago on Eliquis, sent by Dr. Freedman for 12lb weight gain in 7 days, weakness, cough, fatigue, and LLE pain. Patient and at bedside report that over the weekend, patient has developed a cough with fatigue and dizziness. Denies fevers, chills, nausea, vomiting, abdominal pain, constipation, diarrhea. No sick contacts at home, but this is his 5th hospitalization in 3 months. Also has been having 12lb weight gain over the last 7 days. Patient denies chest pain, palpitations, shortness of breath, able to stand and ambulate without issue but has had significant abdominal swelling. PO lasix ineffective in controlling weight gain, urinary output is good, patient reports he has been fluid restricting. New onset left leg pain last 3 days, no pain or unilateral swelling at rest, but says that he gets shooting pain down L back and down to L leg only with movement. Sent by Dr. Freedman for admission and IV iron for anemia control. In treatment for leukemia with Dr. Guzman. Past History - Past Medical History Allergies/Adverse Reactions: Allergies Allergy/AdvReac Type Severity Reaction Status Date / Time tuna oil Allergy Verified 11/13/18 20:36 Home Medications: Ambulatory Orders Clopidogrel Bisulfate [Plavix -] 75 mg PO DAILY 05/17/16 Gabapentin 300 mg PO AM 05/17/16 Apixaban [Eliquis -] 5 mg PO BID tablet 07/25/16 Colchicine 0.6 mg PO DAILY 12/02/16 Meclizine HCl [Antivert -] 1 tab PO PRN 10/10/18 Allopurinol [Zyloprim -] 300 mg PO DAILY 11/13/18 Cyclosporine 100 mg PO DAILY 11/14/18 Cyclosporine [SandIMMUNE (NF) -] 100 mg PO DAILY 11/14/18 Dulaglutide [Trulicity] 0.75 mg SQ WEEKLY 11/14/18 Gabapentin 600 mg PO HS 11/14/18 Acetaminophen [Tylenol .Regular Strength -] 650 mg PO Q6H PRN tablet 11/17/18 Amlodipine Besylate [Norvasc -] 10 mg PO DAILY #30 tablet 11/17/18 Ammonium Lactate Lotion [Lac-Hydrin 12] 1 applic TP BID PRN #1 bottle 11/17/18 Apixaban [Eliquis -] 5 mg PO BID tablet 11/17/18 Aspirin [ASA -] 81 mg PO DAILY tab.chew 11/17/18 Atorvastatin Ca [Lipitor] 40 mg PO HS #30 tablet 11/17/18 Clopidogrel Bisulfate [Plavix -] 75 mg PO DAILY tablet 11/17/18 Docusate Sodium [Colace -] 100 mg PO TID #90 capsule 11/17/18 Polyethylene Glycol 3350 [Miralax 119 gm Btl -] 17 gm PO DAILY #1 bottle Sennosides [Senna -] 2 tab PO HS PRN #60 tablet 11/17/18 Sodium Zirconium Cyclosilicate [Lokelma] 10 gm PO BID #60 packet 11/17/18 Torsemide [Demadex -] 50 mg PO DAILY #30 tablet 11/17/18 hydrALAZINE HCL [Apresoline -] 25 mg PO TID #90 tablet 11/17/18 Anemia: Yes Asthma: No Cancer: Yes (Yes; leukemia Large granular t cell lymphoma) Cardiac Disorders: Yes (2 cardiac stents 2012; AFIB) CVA: No COPD: No CHF: Yes Dementia: No Diabetes: Yes (20 years ago IDDM) GI Disorders: No Disorders: No HTN: Yes Hypercholesterolemia: Yes Liver Disease: No Seizures: No Thyroid Disease: No - Surgical History Abdominal Surgery: No Appendectomy: No Cardiac Surgery: Yes (stents 2012) Cholecystectomy: No Lung Surgery: No Neurologic Surgery: No Orthopedic Surgery: Yes (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 No: Chills, Fever, Weight Stable HEENTM: No: Symptoms Reported Respiratory: Yes: Cough. No: Shortness of Breath, Wheezing, Hemoptysis Cardiac (ROS): No: Chest Pain, Lightheadedness, Palpitations, Syncope ABD/GI: Yes: Poor Appetite. No: Constipated, Diarrhea, Nausea : No: Symptoms Reported Musculoskeletal: Yes: Joint Pain (L knee), Muscle Pain Integumentary: No: Symptoms Reported Neurological: Yes: Paresthesia (LLE), Tingling (LLE), Weakness. No: Headache, Numbness Endocrine: Yes: Unexplained Weight Gain Hematologic/Lymphatic: Yes: Anemia All Other Systems: Reviewed and Negative *Physical Exam - Vital Signs Last Vital Signs Temp Pulse Resp BP Pulse Ox 97.6 F 60 16 145/49 L 98 12/14/18 13:06 12/14/18 13:06 12/14/18 13:06 12/14/18 13:06 12/14/18 13:06 - Physical Exam General Appearance: Yes: Nourished, Appropriately Dressed, Obese. No: Apparent Distress HEENT: positive: EOMI, PHYLICIA, Normal ENT Inspection, Normal Voice, Symmetrical, Pharynx Normal, Hearing Grossly Normal. negative: Scleral Icterus (R), Scleral Icterus (L), Muffled/Hoarse voice, Sinus Tenderness Neck: positive: Normal Thyroid, Supple. negative: Tender, Stridor, Lymphadenopathy (R), Lymphadenopathy (L) Respiratory/Chest: positive: Rhonchi (LLL). negative: Chest Tender, Respiratory Distress, Accessory Muscle Use, Labored Respiration, Crackles, Rales , Stridor, Wheezing Cardiovascular: positive: Regular Rhythm, Regular Rate Gastrointestinal/Abdominal: positive: Soft, Distended (significant fluid to abdomen). negative: Tender Musculoskeletal: positive: Normal Inspection. negative: CVA Tenderness, Decreased Range of Motion Extremity: positive: Normal Range of Motion, Pelvis Stable, Pedal Edema, Calf Tenderness, Other (venous stasis dermatitis, gross swelling to BLE, non-tender, full ROM, moves spontaneously, sensation intact to LT and temp, no bony deformity). negative: Tender Integumentary: positive: Normal Color, Dry, Warm, Swelling Neurologic: positive: Alert, Normal Mood/Affect, Normal Response ED Treatment Course - LABORATORY CBC & Chemistry Diagram: 12/14/18 15:04 12/14/18 15:04 Medical Decision Making - Medical Decision Making 12/14/18 14:19 Dashawn Aguilar is a 63M with PMH CHF, CKD, anemia, leukemia, IDT2DM, cardiac stent x4 last done 1 month ago on Eliquis, sent by Dr. Freedman for 12lb weight gain in 7 days, weakness, cough, fatigue, and LLE pain. Patient presents with multiple issues, including: - failure of outpatient Lasix diuresis in the setting of CKD - anemia/fatigue, likely related to anemia but could be 2/2 infection i.e. PNA - LLE pain, likely sciatica but concerned for DVT despite Eliquis - new onset cough, concerning for PNA vs. CHF exacerbation - leukemia actively in treatment, high risk for infection Will evaluate broadly via: CMP CBC CP Coags BNP Iron levels CXR ECG BC BLE Duplex studies to r/o DVT 12/14/18 14:19 ECG shows sinus rhythm with 1st degree AV block, LAD, HR 62, QRS 114, QTc 426, no ischemic changes or TWI 12/14/18 15:15 CXR: A single AP view of the chest reveals a large heart, normal isaiah, clear lungs and sharp angles. The bones and soft tissues are intact. Since 11/13/2018 there is no change of an adverse nature. Correlation recommended. 12/14/18 15:27 Labs notable for: WBC 3.7, stable Hgb 9.3, stable Cr 2.6 from 1.3, ZHANG BNP >1400, CHF exacerbation Attending Dr. Villavicencio spoke to Dr. Griffin regarding admission to telemetry. Discharge - Discharge Information Problems reviewed: Yes Clinical Impression/Diagnosis: Weight gain, Cough, Weakness, ZHANG (acute kidney injury) Anemia Qualifiers: Anemia type: iron deficiency Iron deficiency anemia type: unspecified iron deficiency Qualified Code(s): D50.9 - Iron deficiency anemia, unspecified Fluid overload Qualifiers: Hypervolemia type: unspecified Qualified Code(s): E87.70 - Fluid overload, unspecified CKD (chronic kidney disease) Qualifiers: Chronic kidney disease stage: unspecified stage Qualified Code(s): N18.9 - Chronic kidney disease, unspecified CHF (congestive heart failure) Qualifiers: Heart failure type: unspecified Heart failure chronicity: acute on chronic Qualified Code(s): I50.9 - Heart failure, unspecified Condition: Stable - Follow up/Referral Referrals: Diomedes Freedman MD [Primary Care Provider] - - Patient Discharge Instructions - Post Discharge Activity
[2018-12-14] MEDS ORDERED: ACETAMINOPHEN 1000 MG/100 ML VIAL (NON FORMULARY) IVPB ONE (15:18)
[2018-12-14 15:19] LABS: BASO % 1.1 % (0-2.0); EOS % 11.3 % (0-4.5); HEMATOCRIT 28.8 % (35.4-49); HEMOGLOBIN 9.3 GM/dL (11.7-16.9); LYMPH % 38.2 % (8-40); MCH 27.8 pg (25.7-33.7); MCHC 32.2 g/dl (32.0-35.9); MEAN CELL VOLUME 86.3 fl (80-96); MEAN PLT VOLUME 8.4 fl (7.5-11.1); MONO % 14.3 % (3.8-10.2); NEUT % 35.1 % (42.8-82.8); PLATELET COUNT 215 K/MM3 (134-434); RBC 3.34 M/mm3 (4.00-5.60); RDW 18.8 % (11.9-15.9); WHITE BLOOD COUNT 3.7 K/mm3 (4.0-10.0)
[2018-12-14 15:26] LABS: INR 1.5 (0.83-1.09); PROTHROMBIN TIME (PATIENT) 17.8 SEC (9.7-13.0)
[2018-12-14 15:29] LABS: ACTIVATED PTT 36.1 SECONDS (25.2-36.5)
[2018-12-14 15:44] LABS: IRON SERUM 58 ug/dL (50-175); TOTAL IRON BINDING CAPACITY 231 ug/dL (250-450)
[2018-12-14 15:47] LABS: ALBUMIN 2.7 g/dl (3.4-5.0); BILIRUBIN,TOTAL 0.3 mg/dL (0.2-1); BLOOD UREA NITROGEN 59.7 mg/dL (7-18); CALCIUM 7.6 mg/dL (8.5-10.1); CREATININE 2.6 mg/dL (0.55-1.3); N-TERMINAL BNP 1886.8 pg/ml (5-125); POTASSIUM 5.1 mmol/L (3.5-5.1); TOT PROT 6.4 g/dl (6.4-8.2)
[2018-12-14] MEDS ORDERED: FUROSEMIDE 40 MG/4 ML INJECTABLE VIAL IVPUSH ONE (16:00)
--- NOTE | 2018-12-14 16:25 | HP ---
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: Peripheral Neuropathy Cardiovascular: Yes: AFIB, CAD, CHF, HTN, Hyperlipdemia Gastrointestinal: Yes: GERD Renal/: Yes: Renal Inusuff, Other (zhang) Heme/Onc: Yes: Anemia Infectious Disease: Yes: Other (osteomyelitis of left fifth metartarsal 2011) Endocrine: Yes: Diabetes Mellitus - Past Surgical History Past Surgical History: Yes: Stent (X2) - Smoking History Smoking history: Never smoked Have you smoked in the past 12 months: No Aproximately how many cigarettes per day: 0 - Alcohol/Substance Use Hx Alcohol Use: No History of Substance Use: reports: None - Social History ADL: Independent History of Recent Travel: No Home Medications - Allergies Allergies/Adverse Reactions: Allergies Allergy/AdvReac Type Severity Reaction Status Date / Time tuna oil Allergy Verified 11/13/18 20:36 - Home Medications Home Medications: Ambulatory Orders Clopidogrel Bisulfate [Plavix -] 75 mg PO DAILY 05/17/16 Gabapentin 300 mg PO AM 05/17/16 Apixaban [Eliquis -] 5 mg PO BID tablet 07/25/16 Colchicine 0.6 mg PO DAILY 12/02/16 Meclizine HCl [Antivert -] 1 tab PO PRN 10/10/18 Allopurinol [Zyloprim -] 300 mg PO DAILY 11/13/18 Cyclosporine 100 mg PO DAILY 11/14/18 Cyclosporine [SandIMMUNE (NF) -] 100 mg PO DAILY 11/14/18 Dulaglutide [Trulicity] 0.75 mg SQ WEEKLY 11/14/18 Gabapentin 600 mg PO HS 11/14/18 Acetaminophen [Tylenol .Regular Strength -] 650 mg PO Q6H PRN tablet 11/17/18 Amlodipine Besylate [Norvasc -] 10 mg PO DAILY #30 tablet 11/17/18 Ammonium Lactate Lotion [Lac-Hydrin 12] 1 applic TP BID PRN #1 bottle 11/17/18 Apixaban [Eliquis -] 5 mg PO BID tablet 11/17/18 Aspirin [ASA -] 81 mg PO DAILY tab.chew 11/17/18 Atorvastatin Ca [Lipitor] 40 mg PO HS #30 tablet 11/17/18 Clopidogrel Bisulfate [Plavix -] 75 mg PO DAILY tablet 11/17/18 Docusate Sodium [Colace -] 100 mg PO TID #90 capsule 11/17/18 Polyethylene Glycol 3350 [Miralax 119 gm Btl -] 17 gm PO DAILY #1 bottle Sennosides [Senna -] 2 tab PO HS PRN #60 tablet 11/17/18 Sodium Zirconium Cyclosilicate [Lokelma] 10 gm PO BID #60 packet 11/17/18 Torsemide [Demadex -] 50 mg PO DAILY #30 tablet 11/17/18 hydrALAZINE HCL [Apresoline -] 25 mg PO TID #90 tablet 11/17/18 Review of Systems - Review of Systems Respiratory: reports: Cough, SOB on Exertion Musculoskeletal: reports: Other (leg swelling) Physical Examination Vital Signs: Vital Signs Temperature 97.6 F 12/14/18 13:06 Pulse Rate 60 12/14/18 13:06 Respiratory Rate 16 12/14/18 13:06 Blood Pressure 145/49 L 12/14/18 13:06 O2 Sat by Pulse Oximetry (%) 98 12/14/18 13:06 Constitutional: Yes: Calm Cardiovascular: Yes: Regular Rate and Rhythm, S1, S2 Respiratory: Yes: Diminished (at bases) Gastrointestinal: Yes: Normal Bowel Sounds, Soft, Abdomen, Obese Extremities: Yes: Other (chronic venous stasis changes) Edema: Yes Labs: CBC, BMP 12/14/18 15:04 12/14/18 15:04 Problem List - Problems (1) Weight gain Assessment/Plan: iv lasix daily weights Code(s): R63.5 - ABNORMAL WEIGHT GAIN (2) ZHANG (acute kidney injury) Assessment/Plan: acute on chronic renal disease renal eval renal sono Code(s): N17.9 - ACUTE KIDNEY FAILURE, UNSPECIFIED (3) Fluid overload Assessment/Plan: leg swelling iv lasix venous doppler to r/o dvt Code(s): E87.70 - FLUID OVERLOAD, UNSPECIFIED Qualifiers: Hypervolemia type: unspecified Qualified Code(s): E87.70 - Fluid overload, unspecified (4) Afib Assessment/Plan: eliquis bid no av jaja agents bc of bradycardia on last admission Code(s): I48.91 - UNSPECIFIED ATRIAL FIBRILLATION Qualifiers: Atrial fibrillation type: unspecified Qualified Code(s): I48.91 - Unspecified atrial fibrillation (5) Diabetes Code(s): E11.9 - TYPE 2 DIABETES MELLITUS WITHOUT COMPLICATIONS Qualifiers: Diabetes mellitus type: type 2 Diabetes mellitus mcfp insulin use: with mcfp use Diabetes mellitus complication status: without complication Qualified Code(s): E11.9 - Type 2 diabetes mellitus without complications; Z79.4 - emt intermediate (current) use of insulin (6) Cough Assessment/Plan: iv lasix iv abx Code(s): R05 - COUGH
[2018-12-14] MEDS ORDERED: CEFTRIAXONE 1 GM/50 ML BAG ONE (16:49)
[2018-12-14] MEDS ORDERED: hydrALAZINE HCL 25 MG TABLET (FP) ONE (16:49)
[2018-12-14] MEDS ORDERED: FUROSEMIDE 40 MG/4 ML INJECTABLE VIAL ONE (16:49)
[2018-12-14] MEDS: CEFTRIAXONE 1 GM in DEXTROSE 5%-WATER - 50 ML IVPB SCH (17:32)
[2018-12-14] MEDS: INSULIN SLIDING SCALE (NOVOLOG) 1 VIAL SQ SCH ×2 (17:45→21:34)
[2018-12-14] MEDS ORDERED: traMADol HCL 50 MG TABLET PO ONE (19:48)
[2018-12-14] MEDS: ATORVASTATIN CA 40 MG TABLET (FP) PO SCH (21:33)
[2018-12-14] MEDS: hydrALAZINE HCL 25 MG TABLET (FP) PO SCH (21:33)
[2018-12-14] MEDS: GABAPENTIN 300 MG CAPSULE (FP) PO SCH (21:33)
[2018-12-14] MEDS ORDERED: APIXABAN 2.5 MG TABLET PO SCH (22:00)
[2018-12-14] MEDS ORDERED: APIXABAN 5 MG TABLET PO SCH (22:00)
[2018-12-14] MEDS: APIXABAN 5 MG TABLET PO SCH (23:09)
[2018-12-14] MEDS: ALLOPURINOL 300 MG TABLET (FP) PO SCH (23:09)
[2018-12-15] MEDS ORDERED: MELATONIN 5 MG TABLETS PO ONE (00:16)
[2018-12-15] MEDS: hydrALAZINE HCL 25 MG TABLET (FP) PO SCH ×3 (05:54→22:04)
[2018-12-15] MEDS: CLOPIDOGREL BISULFATE 75 MG TABLET (FP) PO SCH (05:54)
[2018-12-15] MEDS: GABAPENTIN 300 MG CAPSULE (FP) PO SCH ×3 (05:54→22:05)
[2018-12-15] MEDS: INSULIN SLIDING SCALE (NOVOLOG) 1 VIAL SQ SCH ×4 (06:20→22:07)
[2018-12-15 06:36] LABS: BASO % 1.4 % (0-2.0); EOS % 10.9 % (0-4.5); HEMATOCRIT 26.6 % (35.4-49); HEMOGLOBIN 8.8 GM/dL (11.7-16.9); LYMPH % 23.3 % (8-40); MCH 27.9 pg (25.7-33.7); MCHC 33.1 g/dl (32.0-35.9); MEAN CELL VOLUME 84.3 fl (80-96); NEUT % 50.4 % (42.8-82.8); PLATELET COUNT 192 K/MM3 (134-434); RBC 3.15 M/mm3 (4.00-5.60); RDW 18.7 % (11.9-15.9); WHITE BLOOD COUNT 2.5 K/mm3 (4.0-10.0)
[2018-12-15] MEDS: ACETAMINOPHEN 325 MG TABLET (FP) PO PRN (07:00)
[2018-12-15 07:27] LABS: ALBUMIN 2.4 g/dl (3.4-5.0); ALK PHOS 148 U/L (45-117); ANION GAP 4 MMOL/L (8-16); BILIRUBIN,TOTAL 0.4 mg/dL (0.2-1); BLOOD UREA NITROGEN 56.7 mg/dL (7-18); CALCIUM 7.7 mg/dL (8.5-10.1); CHLORIDE 117 mmol/L (98-107); CHOLESTEROL 105 mg/dL (50-200); CO2 18 mmol/L (21-32); CREATININE 2.1 mg/dL (0.55-1.3); GLUCOSE,RANDOM 127 mg/dL (74-106); HDL CHOLESTEROL 45 mg/dL (40-60); LDL CHOLESTEROL (ONLY SJRH) 53 mg/dL (5-100); MAGNESIUM 2.1 mg/dL (1.8-2.4); N-TERMINAL BNP 1775.5 pg/ml (5-125); PHOSPHOROUS 4.5 mg/dL (2.5-4.9); POTASSIUM 5.9 mmol/L (3.5-5.1); SGOT/AST 8 U/L (15-37); SGPT/ALT 11 U/L (13-61); SODIUM 140 mmol/L (136-145); TOT PROT 5.9 g/dl (6.4-8.2); TRIGLYCERIDES 67 mg/dL (0-150)
[2018-12-15] MEDS ORDERED: traMADol HCL 50 MG TABLET PO PRN (08:37)
--- NOTE | 2018-12-15 08:39 | PN ---
Progress Note, Physician - Current Medication List Current Medications: Active Medications Acetaminophen (Tylenol -) 650 mg PO Q6H PRN PRN Reason: PAIN LEVEL 1-5 Last Admin: 12/15/18 07:00 Dose: 650 mg Allopurinol (Zyloprim -) 300 mg PO [facility] Last Admin: 12/14/18 23:09 Dose: 300 mg Amlodipine Besylate (Norvasc -) 5 mg PO DAILY@0800 [facility] Apixaban (Eliquis -) 5 mg PO BID [facility] Last Admin: 12/14/18 23:09 Dose: 5 mg Aspirin (Asa -) 81 mg PO DAILY [facility] Atorvastatin Calcium (Lipitor -) 40 mg PO [facility] Last Admin: 12/14/18 21:33 Dose: 40 mg Clopidogrel Bisulfate (Plavix -) 75 mg PO DAILY@0600 [facility] Last Admin: 12/15/18 05:54 Dose: 75 mg Cyclosporine (Sandimmune) 100 mg PO [facility] Last Admin: 12/14/18 23:09 Dose: 100 mg Gabapentin (Neurontin -) 300 mg PO TID [facility] Last Admin: 12/15/18 05:54 Dose: 300 mg Hydralazine HCl (Apresoline -) 25 mg PO TID [facility] Last Admin: 12/15/18 05:54 Dose: 25 mg Ceftriaxone Sodium 1 gm/ (Dextrose) 50 mls @ 100 mls/hr IVPB DAILY [facility]; Protocol Last Admin: 12/14/18 17:32 Dose: 100 mls/hr Ferric Carboxymaltose 750 mg/ (Sodium Chloride) 265 mls @ 530 mls/hr IVPB ONCE ONE Stop: 12/15/18 10:29 Insulin Aspart (Novolog Vial Sliding Scale -) 1 vial SQ ACHS [facility]; Protocol Last Admin: 12/15/18 06:20 Dose: Not Given Meclizine HCl (Antivert -) 12.5 mg PO PRN [facility] Non-Formulary Medication (Colchicine [Colchicine]) 0.6 mg PO DAILY [facility] Tramadol HCl (Ultram -) 50 mg PO Q6H PRN PRN Reason: PAIN LEVEL 6-10 - Objective Vital Signs: Vital Signs Temperature 98.4 F 12/15/18 04:00 Pulse Rate 60 12/15/18 04:00 Respiratory Rate 20 12/15/18 04:00 Blood Pressure 157/54 L 12/15/18 04:00 O2 Sat by Pulse Oximetry (%) 98 12/14/18 21:00 Cardiovascular: Yes: Regular Rate and Rhythm Respiratory: Yes: Regular, CTA Bilaterally Gastrointestinal: Yes: Normal Bowel Sounds, Soft Edema: Yes Integumentary: Yes: Venous Stasis Changes Neurological: Yes: Alert, Oriented Labs: CBC, BMP 12/15/18 05:20 12/15/18 05:20 INR, PTT INR 1.50 (0.83-1.09) H 12/14/18 15:04 Problem List - Problems (1) Radiculopathy Assessment/Plan: -Left leg pain -emg-ct scan -pt consult -gabapentin add tramadol Code(s): M54.10 - RADICULOPATHY, SITE UNSPECIFIED Qualifiers: Spinal region: lumbosacral Qualified Code(s): M54.17 - Radiculopathy, lumbosacral region (2) Anemia Assessment/Plan: -per hem -consult dr perez Code(s): D64.9 - ANEMIA, UNSPECIFIED Qualifiers: Anemia type: iron deficiency Iron deficiency anemia type: unspecified iron deficiency Qualified Code(s): D50.9 - Iron deficiency anemia, unspecified (3) CHF (congestive heart failure) Assessment/Plan: iv lasix resume meds cardio Code(s): I50.9 - HEART FAILURE, UNSPECIFIED Qualifiers: Heart failure type: unspecified Heart failure chronicity: acute on chronic Qualified Code(s): I50.9 - Heart failure, unspecified (4) Afib Assessment/Plan: - eliquis bid no av jaja agents bc of bradycardia on last admission Code(s): I48.91 - UNSPECIFIED ATRIAL FIBRILLATION Qualifiers: Atrial fibrillation type: unspecified Qualified Code(s): I48.91 - Unspecified atrial fibrillation (5) Diabetes mellitus, insulin dependent (IDDM), uncontrolled Assessment/Plan: bgm endo Code(s): E10.65 - TYPE 1 DIABETES MELLITUS WITH HYPERGLYCEMIA (6) HTN (hypertension) Assessment/Plan: Vital Signs Period Temp Pulse Resp BP Sys/Reddy Pulse Ox Last 24 Hr 97.3 F-98.4 F 60-79 16-24 145-160/49-89 98-98 Code(s): I10 - ESSENTIAL (PRIMARY) HYPERTENSION (7) Large granular lymphocytosis Code(s): D72.820 - LYMPHOCYTOSIS (SYMPTOMATIC) (8) Morbid obesity with BMI of 50.0-59.9, adult Code(s): E66.01 - MORBID (SEVERE) OBESITY DUE TO EXCESS CALORIES; Z68.43 - BODY MASS INDEX (BMI) 50.0-59.9, ADULT
[2018-12-15] MEDS ORDERED: DEXTROSE 5%-WATER - 50 ML IVPB ONE (09:07)
[2018-12-15] MEDS ORDERED: cefTRIAXone SODIUM 1 GM VIAL ONE (09:07)
[2018-12-15] MEDS: amLODIPine BESYLATE 5 MG TABLET (FP) PO SCH (09:09)
[2018-12-15] MEDS: ASPIRIN 81 MG CHEWABLE TABLETS PO SCH (09:09)
[2018-12-15] MEDS: APIXABAN 5 MG TABLET PO SCH ×2 (09:09→22:05)
[2018-12-15] MEDS ORDERED: PT OWN MED DRAWER 7, Y5N ONE ×2 (09:11→21:50)
[2018-12-15] MEDS: COLCHICINE 0.6 MG CAP PO SCH (09:11)
[2018-12-15] MEDS: CEFTRIAXONE 1 GM in DEXTROSE 5%-WATER - 50 ML IVPB SCH (09:12)
--- NOTE | 2018-12-15 09:16 | EKG ---
Test Reason : Blood Pressure : / mmHG Vent. Rate : 062 BPM Atrial Rate : 062 BPM P-R Int : 210 ms QRS Dur : 114 ms QT Int : 420 ms P-R-T Axes : 039 -58 039 degrees QTc Int : 426 ms SINUS RHYTHM WITH 1ST DEGREE A-V BLOCK LEFT AXIS DEVIATION ABNORMAL ECG WHEN COMPARED WITH ECG OF 13-NOV-2018 06:34, SINUS RHYTHM HAS REPLACED ATRIAL FIBRILLATION QUESTIONABLE CHANGE IN QRS DURATION Confirmed by MD Fawn, Job ([id number]) on 12/15/2018 9:15:40 AM Referred By: Confirmed By:Job Augustine MD
[2018-12-15 09:45] LABS: ANISOCYTOSIS 1+; MACROCYTOSIS 0; PLATELET ESTIMATE NORMAL
[2018-12-15] MEDS ORDERED: FERRIC CARBOXYMALTOSE 750 MG in SODIUM CHLORIDE 250 ML IVPB ONE (10:00)
--- NOTE | 2018-12-15 10:09 | CONSULT ---
Consultation: REQUESTING PROVIDER: Dr. Garland CONSULT REQUEST: We have been asked to medically evaluate this patient for ZHANG. HISTORY OF PRESENT ILLNESS: Pt. is a 63 y.o. M w/ PMHx. of Afib (on Eliquis), CAD(s/p 4 stents 2012 and 2018), CAD, HTN, HLD, CKD (Stage 3a at last baseline) , chronic anemia, GERD, Large cell granular leukemia/lymphoma and DM2 presents with worsening leg edema, increased weight and shortness of breath. Pt. states tat over the last month he has been having worsening shortness of breath and worsening dyspnea on exertion. Pt. states he went to his PCP and was prescribed anti-allergy medication for his cough to limited effect. Pt. then at request of his came to the ED for evaluation. Pt. had a recent stay in the ICU for ARF s/p stenting last month. Pt. endorsed having chills at home, left leg neuropathy, and a slight yellow colored phlegm. Pt. endorses 13 pounds of weight gain. Pt. states he had his Flu vaccine this year and had his Pnemonia vaccine 4 years ago. Pt. endorses improving shortness of breath since taking Lasix in the hospital but stated the day of admission he did not take his home torsemide dose. Pt. denies any fevers, diarrhea, constipation, dysuria, hematuria, or chest pain. REVIEW OF SYSTEMS: CONSTITUTIONAL: chills, weight change Absent: fever, diaphoresis, generalized weakness, malaise, loss of appetite, HEENT: Absent: rhinorrhea, nasal congestion, throat pain, throat swelling, difficulty swallowing, mouth swelling, ear pain, eye pain, visual changes CARDIOVASCULAR: palpitations, irregular heart rate, peripheral edema Absent: chest pain, syncope, lightheadedness RESPIRATORY: shortness of breath, dyspnea with exertion, Absent: cough, orthopnea, wheezing, stridor, hemoptysis GASTROINTESTINAL: Absent: abdominal pain, abdominal distension, nausea, vomiting, diarrhea, constipation, melena, hematochezia GENITOURINARY: Absent: dysuria, frequency, urgency, hesitancy, hematuria, flank pain, genital pain MUSCULOSKELETAL: Absent: myalgia, arthralgia, joint swelling, back pain, neck pain SKIN: rash Absent: , itching, pallor HEMATOLOGIC/IMMUNOLOGIC: Absent: easy bleeding, easy bruising, lymphadenopathy, frequent infections ENDOCRINE: Absent: unexplained weight gain, unexplained weight loss, heat intolerance, cold intolerance NEUROLOGIC: Absent: headache, focal weakness or paresthesias, dizziness, unsteady gait, seizure, mental status changes, bladder or bowel incontinence PSYCHIATRIC: Absent: anxiety, depression, suicidal or homicidal ideation, hallucinations. PHYSICAL EXAMINATION Vital Signs - 24 hr 12/14/18 12/14/18 12/14/18 13:06 17:06 18:00 Temperature 97.6 F 97.3 F L 97.4 F L Pulse Rate 60 74 Pulse Rate [ 70 Apical] Respiratory 16 24 H 20 Rate Blood Pressure 145/49 L 158/89 Blood Pressure 152/51 L [Left Arm] O2 Sat by Pulse 98 98 Oximetry (%) 12/14/18 12/14/18 12/15/18 19:48 21:00 00:37 Temperature 98 F Pulse Rate 79 Pulse Rate [ Apical] Respiratory 20 20 20 Rate Blood Pressure 160/68 Blood Pressure [Left Arm] O2 Sat by Pulse 98 98 Oximetry (%) 12/15/18 04:00 Temperature 98.4 F Pulse Rate 60 Pulse Rate [ Apical] Respiratory 20 Rate Blood Pressure 157/54 L Blood Pressure [Left Arm] O2 Sat by Pulse Oximetry (%) GENERAL: Awake, alert, and fully oriented, in no acute distress. HEAD: Normal with no signs of trauma. EYES: Extraocular movements intact, sclera anicteric, conjunctiva clear. EARS, NOSE, THROAT: Ears normal, nares patent, oropharynx clear without exudates. Moist mucous membranes, poor dentition. NECK: Normal range of motion, supple without lymphadenopathy, JVD, or masses. LUNGS: Breath sounds equal, clear to auscultation bilaterally. No wheezes, and no crackles. No accessory muscle use. HEART: Irregular rate and rhythm, normal S1 and S2 without murmur, rub or gallop. ABDOMEN: Soft, nontender, distended, normoactive bowel sounds, no guarding, no rebound, no masses. No hepatomegaly or splenomegaly. MUSCULOSKELETAL: Normal range of motion at all joints. No bony deformities or tenderness. No CVA tenderness. UPPER EXTREMITIES: 2+ radial pulses, warm, well-perfused. No cyanosis. No clubbing. No peripheral edema. LOWER EXTREMITIES: 2+ L Dorsal pedal pulse, 1+ R. dorsal pedal pulses, warm, well-perfused. No calf tenderness. b/l Anasarca to calves NEUROLOGICAL: Cranial nerves II-XII intact. Normal speech. Gait not assessed PSYCHIATRIC: Cooperative. Good eye contact. Appropriate mood and affect. SKIN: Warm, dry, normal turgor, no rashes or lesions noted. Laboratory Results - last 24 hr 12/14/18 12/14/18 12/14/18 15:04 15:04 15:04 WBC 3.7 L RBC 3.34 L Hgb 9.3 L Hct 28.8 L MCV 86.3 MCH 27.8 MCHC 32.2 RDW 18.8 H Plt Count 215 MPV 8.4 D Absolute Neuts (auto) 1.3 L Neutrophils % 35.1 L D Neutrophils % (Manual) Band Neutrophils % Lymphocytes % 38.2 D Lymphocytes % (Manual) Monocytes % 14.3 H Monocytes % (Manual) Eosinophils % 11.3 H Eosinophils % (Manual) Basophils % 1.1 Basophils % (Manual) Myelocytes % (Man) Promyelocytes % (Man) Blast Cells % (Manual) Nucleated RBC % 0 Metamyelocytes Hypochromia Platelet Estimate Polychromasia Poikilocytosis Anisocytosis Microcytosis Macrocytosis Retic Count PT with INR 17.80 H INR 1.50 H PTT (Actin FS) 36.1 Sodium 141 Potassium 5.1 Chloride 117 H Carbon Dioxide 17 L Anion Gap 7 L BUN 59.7 H Creatinine 2.6 H Est GFR (CKD-EPI)AfAm 29.32 Est GFR (CKD-EPI)NonAf 25.30 POC Glucometer Random Glucose 105 Hemoglobin A1c % Calcium 7.6 L Phosphorus Magnesium Iron TIBC Iron Saturation Unsaturated IBC Ferritin 142.5 Total Bilirubin 0.3 AST 12 L ALT 12 L Alkaline Phosphatase 158 H Creatine Kinase Troponin I B-Natriuretic Peptide 1886.8 H Total Protein 6.4 Albumin 2.7 L Triglycerides Cholesterol Total LDL Cholesterol HDL Cholesterol Blood Type Antibody Screen 12/14/18 12/14/18 12/14/18 15:04 15:04 15:04 WBC RBC Hgb Hct MCV MCH MCHC RDW Plt Count MPV Absolute Neuts (auto) Neutrophils % Neutrophils % (Manual) Band Neutrophils % Lymphocytes % Lymphocytes % (Manual) Monocytes % Monocytes % (Manual) Eosinophils % Eosinophils % (Manual) Basophils % Basophils % (Manual) Myelocytes % (Man) Promyelocytes % (Man) Blast Cells % (Manual) Nucleated RBC % Metamyelocytes Hypochromia Platelet Estimate Polychromasia Poikilocytosis Anisocytosis Microcytosis Macrocytosis Retic Count 2.30 H PT with INR INR PTT (Actin FS) Sodium Potassium Chloride Carbon Dioxide Anion Gap BUN Creatinine Est GFR (CKD-EPI)AfAm Est GFR (CKD-EPI)NonAf POC Glucometer Random Glucose Hemoglobin A1c % Calcium Phosphorus Magnesium Iron 58 TIBC 231 L Iron Saturation 25 Unsaturated IBC 173 L Ferritin Total Bilirubin AST ALT Alkaline Phosphatase Creatine Kinase Troponin I B-Natriuretic Peptide Total Protein Albumin Triglycerides Cholesterol Total LDL Cholesterol HDL Cholesterol Blood Type A POSITIVE Antibody Screen Negative 12/14/18 12/14/18 12/15/18 17:44 21:32 05:20 WBC RBC Hgb Hct MCV MCH MCHC RDW Plt Count MPV Absolute Neuts (auto) Neutrophils % Neutrophils % (Manual) Band Neutrophils % Lymphocytes % Lymphocytes % (Manual) Monocytes % Monocytes % (Manual) Eosinophils % Eosinophils % (Manual) Basophils % Basophils % (Manual) Myelocytes % (Man) Promyelocytes % (Man) Blast Cells % (Manual) Nucleated RBC % Metamyelocytes Hypochromia Platelet Estimate Polychromasia Poikilocytosis Anisocytosis Microcytosis Macrocytosis Retic Count PT with INR INR PTT (Actin FS) Sodium Potassium Chloride Carbon Dioxide Anion Gap BUN Creatinine Est GFR (CKD-EPI)AfAm Est GFR (CKD-EPI)NonAf POC Glucometer 91 112 Random Glucose Hemoglobin A1c % 6.1 Calcium Phosphorus Magnesium Iron TIBC Iron Saturation Unsaturated IBC Ferritin Total Bilirubin AST ALT Alkaline Phosphatase Creatine Kinase Troponin I B-Natriuretic Peptide Total Protein Albumin Triglycerides Cholesterol Total LDL Cholesterol HDL Cholesterol Blood Type Antibody Screen 12/15/18 12/15/18 12/15/18 05:20 05:20 05:57 WBC 2.5 L RBC 3.15 L Hgb 8.8 L Hct 26.6 L MCV 84.3 MCH 27.9 MCHC 33.1 RDW 18.7 H Plt Count 192 MPV 9.0 Absolute Neuts (auto) 1.3 L Neutrophils % 50.4 D Neutrophils % (Manual) 54.0 D Band Neutrophils % 0.0 Lymphocytes % 23.3 D Lymphocytes % (Manual) 23.0 D Monocytes % 14.0 H Monocytes % (Manual) 7 Eosinophils % 10.9 H Eosinophils % (Manual) 15.0 H D Basophils % 1.4 Basophils % (Manual) 1.0 Myelocytes % (Man) 0 Promyelocytes % (Man) 0 Blast Cells % (Manual) 0 Nucleated RBC % 0 Metamyelocytes 0 Hypochromia 0 Platelet Estimate Normal Polychromasia 1+ Poikilocytosis 1+ Anisocytosis 1+ Microcytosis 0 Macrocytosis 0 Retic Count PT with INR INR PTT (Actin FS) Sodium 140 Potassium 5.9 H Chloride 117 H Carbon Dioxide 18 L Anion Gap 4 L BUN 56.7 H Creatinine 2.1 H Est GFR (CKD-EPI)AfAm 37.96 Est GFR (CKD-EPI)NonAf 32.75 POC Glucometer 113 Random Glucose 127 H Hemoglobin A1c % Calcium 7.7 L Phosphorus 4.5 Magnesium 2.1 Iron TIBC Iron Saturation Unsaturated IBC Ferritin Total Bilirubin 0.4 AST 8 L ALT 11 L Alkaline Phosphatase 148 H Creatine Kinase 38 Troponin I < 0.02 B-Natriuretic Peptide 1775.5 H Total Protein 5.9 L Albumin 2.4 L Triglycerides 67 Cholesterol 105 Total LDL Cholesterol 53 HDL Cholesterol 45 Blood Type Antibody Screen Active Medications Home Medications Medication Instructions Recorded Clopidogrel Bisulfate [Plavix -] 75 mg PO DAILY 05/17/16 Gabapentin 300 mg PO AM 05/17/16 Apixaban [Eliquis -] 5 mg PO BID tablet 07/25/16 Colchicine 0.6 mg PO DAILY 12/02/16 Meclizine HCl [Antivert -] 1 tab PO PRN 10/10/18 Allopurinol [Zyloprim -] 300 mg PO DAILY 11/13/18 Cyclosporine 100 mg PO DAILY 11/14/18 Cyclosporine [SandIMMUNE (NF) -] 100 mg PO DAILY 11/14/18 Dulaglutide [Trulicity] 0.75 mg SQ WEEKLY 11/14/18 Gabapentin 600 mg PO HS 11/14/18 Acetaminophen [Tylenol .Regular 650 mg PO Q6H PRN tablet 11/17/18 Strength -] Amlodipine Besylate [Norvasc -] 10 mg PO DAILY #30 tablet 11/17/18 Ammonium Lactate Lotion 1 applic TP BID PRN #1 bottle 11/17/18 [Lac-Hydrin 12] Apixaban [Eliquis -] 5 mg PO BID tablet 11/17/18 Aspirin [ASA -] 81 mg PO DAILY tab.chew 11/17/18 Atorvastatin Ca [Lipitor] 40 mg PO HS #30 tablet 11/17/18 Clopidogrel Bisulfate [Plavix -] 75 mg PO DAILY tablet 11/17/18 Docusate Sodium [Colace -] 100 mg PO TID #90 capsule 11/17/18 Polyethylene Glycol 3350 [Miralax 17 gm PO DAILY #1 bottle 11/17/18 119 gm Btl -] Sennosides [Senna -] 2 tab PO HS PRN #60 tablet 11/17/18 Sodium Zirconium Cyclosilicate 10 gm PO BID #60 packet 11/17/18 [Lokelma] Torsemide [Demadex -] 50 mg PO DAILY #30 tablet 11/17/18 hydrALAZINE HCL [Apresoline -] 25 mg PO TID #90 tablet 11/17/18 Current Medications Acetaminophen (Tylenol -) 650 mg PO Q6H PRN PRN Reason: PAIN LEVEL 1-5 Last Admin: 12/15/18 07:00 Dose: 650 mg Allopurinol (Zyloprim -) 300 mg PO [facility] Last Admin: 12/14/18 23:09 Dose: 300 mg Amlodipine Besylate (Norvasc -) 5 mg PO DAILY@0800 [facility] Last Admin: 12/15/18 09:09 Dose: 5 mg Apixaban (Eliquis -) 5 mg PO BID [facility] Last Admin: 12/15/18 09:09 Dose: 5 mg Aspirin (Asa -) 81 mg PO DAILY [facility] Last Admin: 12/15/18 09:09 Dose: 81 mg Atorvastatin Calcium (Lipitor -) 40 mg PO [facility] Last Admin: 12/14/18 21:33 Dose: 40 mg Clopidogrel Bisulfate (Plavix -) 75 mg PO DAILY@0600 [facility] Last Admin: 12/15/18 05:54 Dose: 75 mg Colchicine (Colcrys) 0.6 mg PO DAILY [facility] Last Admin: 12/15/18 09:11 Dose: 0.6 mg Cyclosporine (Sandimmune) 100 mg PO [facility] Last Admin: 12/14/18 23:09 Dose: 100 mg Gabapentin (Neurontin -) 300 mg PO TID [facility] Last Admin: 12/15/18 05:54 Dose: 300 mg Hydralazine HCl (Apresoline -) 25 mg PO TID [facility] Last Admin: 11/05/19 05:54 Dose: 25 mg Ceftriaxone Sodium 1 gm/ (Dextrose) 50 mls @ 100 mls/hr IVPB DAILY [facility]; Protocol Last Admin: 12/15/18 09:12 Dose: 100 mls/hr Ferric Carboxymaltose 750 mg/ (Sodium Chloride) 265 mls @ 530 mls/hr IVPB ONCE ONE Stop: 12/15/18 10:29 Insulin Aspart (Novolog Vial Sliding Scale -) 1 vial SQ ACHS JENNY; Protocol Last Admin: 12/15/18 06:20 Dose: Not Given Meclizine HCl (Antivert -) 12.5 mg PO PRN JENNY Tramadol HCl (Ultram -) 50 mg PO Q6H PRN PRN Reason: PAIN LEVEL 6-10 ASSESSMENT/PLAN: Pt. is a 63 y.o. M w/ PMHx. of Afib (on Eliquis), CAD(s/p 4 stents), CAD, HTN, HLD, CKD (Stage 3a at last baseline), chronic anemia, GERD, Large cell granular leukemia/lymphoma and DM2 presents with worsening leg edema, increased weight and shortness of breath. #ZHANG w/ Hyperkalemia on Chronic CKD Cr: 2.1 improving from 2.6 yesterday Pt. still improving from contrast dye used for cardiac stenting ~1.5 months ago. It can take 3-12 months for resolution of ZHANG Pt. received 40mg IVP of Lasix, will need to continue IV Lasix Given Lokelma for Potassium of 5.9 continue #Shortness of breath 2/2 Volume overload 2/2 ZHANG c/w IV Lasix 40mg BID monitor Is and Os c/w empiric ceftriaxone for suspected PNA CXR: Negative for acute pathology #Anemia 2/2 Large cell granular leukemia/lymphoma Tx. c/w cyclosporine, allopurinol and colchicine Pt. received IV iron x 1, will continue with IV Iron as needed Iron studies appreciated Hgb: 8.8 (decreased form 9.3 yesterday), will continue to monitor anemia likely a contributing factor to shortness of breath #HTN c/w Norvasc (consider switching as Pt. has B/l lower extremity anasarca with venous insufficiency), Hydralazine and diuretic. Consider switching to KAMERON/ARB when Pt.s Renal function improves BP:157/54--> will need tight BP control on discharge #FEN no IVF, restrict PO intake to 1.5L Daily monitor electrolytes, K+: 5.9; given dose today, consider resuming Lokelma Sodium restricted/Diabetic Diet #DVT Ppx. c/w Eliquis 5mg BID Dispo: We will continue to follow the patient. Thank you for this consultative opportunity. Visit type - Emergency Visit Emergency Visit: Yes ED Registration Date: 12/14/18 Care time: The patient presented to the Emergency Department on the above date and was hospitalized for further evaluation of their emergent condition. - New Patient This patient is new to me today: Yes Date on this admission: 12/15/18 - Critical Care Critical Care patient: No ATTENDING PHYSICIAN STATEMENT I saw and evaluated the patient. I reviewed the resident's note and discussed the case with the resident. I agree with the resident's findings and plan as documented. SUBJECTIVE: OBJECTIVE: ASSESSMENT AND PLAN:
[2018-12-15] MEDS ORDERED: MECLIZINE HCL 12.5 MG TABLET PO PRN (11:00)
[2018-12-15] MEDS: SODIUM ZIRCONIUM CYCLOSILICATE (LOKELMA) 5 GM PACKET PO SCH (11:09)
--- NOTE | 2018-12-15 11:46 | CON.CARD ---
Cardiology Consult (text) - Consultation Consultation Note: Consult Consult Specialty:: Cardiology Reason for Consultation:: sob - History of Present Illness Chief Complaint: short of breath, cough History of Present Illness: 63M CAD s/[place] [facility] [place] baseline creat 1.5-2, PAF, diastolic CHF presents to ER with weight gain, cough, dyspnea. compliant with meds at home, was on torsemide. Had 13 lb weight gain and edema, cough with white/yellow sputum for a couple of days. Sees Dr. Toribio for cardio. - Past Medical History [employer] SAL[employer]: Yes: Peripheral Neuropathy Cardio/Vascular: Yes: AFIB, CAD, CHF, HTN, Hyperlipdemia Gastrointestinal: Yes: GERD Renal/: Yes: Renal Inusuff, Other (zhang) Infectious Disease: Yes: Other (osteomyelitis of left fifth metartarsal 2011) Endocrine: Yes: Diabetes Mellitus Additional Medical History: morbid obesity - Past Surgical History Past Surgical History: Yes: Stent (X2) - Alcohol/Substance Use Hx Alcohol Use: No History of Substance Use: reports: None - Smoking History Smoking history: Unknown if ever smoked Have you smoked in the past 12 months: No Aproximately how many cigarettes per day: 0 - Social History Usual Living Arrangement: With Spouse ADL: Independent History of Recent Travel: No Home Medications - Allergies Allergies/Adverse Reactions: Allergies Allergy/AdvReac Type Severity Reaction Status Date / Time tuna oil Allergy Verified 11/13/18 20:36 Home Medications Medication Instructions Recorded Clopidogrel Bisulfate [Plavix -] 75 mg PO DAILY 05/17/16 Gabapentin 300 mg PO AM 05/17/16 Apixaban [Eliquis -] 5 mg PO BID tablet 07/25/16 Colchicine 0.6 mg PO DAILY 12/02/16 Meclizine HCl [Antivert -] 1 tab PO PRN 10/10/18 Allopurinol [Zyloprim -] 300 mg PO DAILY 11/13/18 Cyclosporine 100 mg PO DAILY 11/14/18 Cyclosporine [SandIMMUNE (NF) -] 100 mg PO DAILY 11/14/18 Dulaglutide [Trulicity] 0.75 mg SQ WEEKLY 11/14/18 Gabapentin 600 mg PO HS 11/14/18 Acetaminophen [Tylenol .Regular 650 mg PO Q6H PRN tablet 11/17/18 Strength -] Amlodipine Besylate [Norvasc -] 10 mg PO DAILY #30 tablet 11/17/18 Ammonium Lactate Lotion 1 applic TP BID PRN #1 bottle 11/17/18 [Lac-Hydrin 12] Apixaban [Eliquis -] 5 mg PO BID tablet 11/17/18 Aspirin [ASA -] 81 mg PO DAILY tab.chew 11/17/18 Atorvastatin Ca [Lipitor] 40 mg PO HS #30 tablet 11/17/18 Clopidogrel Bisulfate [Plavix -] 75 mg PO DAILY tablet 11/17/18 Docusate Sodium [Colace -] 100 mg PO TID #90 capsule 11/17/18 Polyethylene Glycol 3350 [Miralax 17 gm PO DAILY #1 bottle 11/17/18 119 gm Btl -] Sennosides [Senna -] 2 tab PO HS PRN #60 tablet 11/17/18 Sodium Zirconium Cyclosilicate 10 gm PO BID #60 packet 11/17/18 [Lokelma] Torsemide [Demadex -] 50 mg PO DAILY #30 tablet 11/17/18 hydrALAZINE HCL [Apresoline -] 25 mg PO TID #90 tablet 11/17/18 Family Medical History Family History: Unremarkable Review of Systems Findings/Remarks: see HPI - Review of Systems Constitutional: reports: Lethargy, Malaise Eyes: reports: No Symptoms HENT: reports: No Symptoms Neck: reports: No Symptoms Cardiovascular: reports: Palpitations, Shortness of Breath Respiratory: reports: No Symptoms Gastrointestinal: reports: No Symptoms Genitourinary: reports: No Symptoms Breasts: reports: No Symptoms Reported Musculoskeletal: reports: Muscle Pain, Muscle Weakness Integumentary: denies: No Symptoms, Blister, Bruising, Change in Color, Eczema, Erythema, Incision, Lesions, Lump, Pallor, Pruritis, Rash, Wound, Other Neurological: denies: No Symptoms, Change in LOC, Change in Speech, Confusion, Dizziness, Headache, Incoordination, Numbness, Parasthesia, Pre-Existing Deficit , Seizure, Syncope, Tremors, Unsteady Gait, Weakness, Other Endocrine: denies: No Symptoms, Excessive Sweating, Flushing, Increased Hunger, Increased Thirst, Intolerance to Cold, Intolerance to Heat, Unexplained Weight Gain, Unexplained Weight Loss, Other Hematology/Lymphatic: denies: No Symptoms, Easily Bruised, Excessive Bleeding, Swollen Glands, Other Psychiatric: denies: No Symptoms, Altered Sleep Pattern, Anxiety, Depression, Hallucinations, Panic, Paranoia, Suicidal, Other - Risk Factors Known Risk Factors: Yes: Diabetes Mellitus, Other (known CAD) Vital Signs Period Temp Pulse Resp BP Sys/Reddy Pulse Ox Last 24 Hr 97.3 F-98.4 F 60-79 16-24 145-160/49-89 98-98 Constitutional: Yes: No Distress Eyes: Yes: Conjunctiva Clear Respiratory: Yes: CTA Bilaterally Gastrointestinal: Yes: Soft, Abdomen, Obese Cardiovascular: Yes: Pulse Irregular JVD: No Carotid Bruit: No Heart Sounds: Yes: S1, S2 (irreg) Edema: Yes Edema: LLE: 1+, RLE: 1+ Neurological: Yes: Alert, Oriented CXR: no congestion NSR, 1st degree AVB, APCs, Peaked T waves tele: sinus Assessment/Plan Shortness of breath, cough, acute on chronic diastolic HF - improving with lasix - cont lasix 40 mg IV BID, monitor Cr, lytes, daily weights atrial fibrillation - cont eliquis - no bb for history of bradycardia CAD s/p recent PCI - cont aspirin, plavix - not on bb due to bradycardia ZHANG on CKD - improving after lasix - renal consulted DM - manage per primary HTN - cont hydralazine, amlodipine anemia - manage per heme
--- NOTE | 2018-12-15 13:32 | CONSULT ---
Consult Consult Specialty:: PM&R Dr Mock for Dr Argueta - History of Present Illness Chief Complaint: LLE pain History of Present Illness: This is a 63 year old man with a medical history of A fib, CAD s/p stent x2, CHF , HTN, HLD, GERD. ZHANG/ renal insufficiency, anemia, DM, gout, L 5th toe OM, who presented to the ED 12/14/18 with 13 lbs weight gain and SOB. He was admitted for weight gain and ZHANG for which Renal was consulted. He developed mild LBP, with more L buttock pain which radiates into the L anterior thigh then medial calf to the medial ankle. CT lumbar spine 12/15/18 shows multilevel facet hypertrophy and mild disc bulge, with slight impingement R L4 nerve root at L4/ 5 level with mild central canal stenosis. EMG was requested to better evaluate LLE pain; Physiatry is being consulted for EMG. 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 Cardio/Vascular: Yes: AFIB, CAD, CHF, HTN, Hyperlipdemia Gastrointestinal: Yes: GERD Renal/: Yes: Renal Inusuff, Other (zhang) Infectious Disease: Yes: Other (osteomyelitis of left fifth metartarsal 2011) Endocrine: Yes: Diabetes Mellitus Additional Medical History: morbid obesity - Past Surgical History Past Surgical History: Yes: Stent (X2) - Alcohol/Substance Use Hx Alcohol Use: No History of Substance Use: reports: None - Smoking History Smoking history: Never smoked Have you smoked in the past 12 months: No Aproximately how many cigarettes per day: 0 - Social History Usual Living Arrangement: With Spouse (in house with 2 steps to enter and 20 inside) ADL: Independent (without AD) History of Recent Travel: No Home Medications - Allergies Allergies/Adverse Reactions: Allergies Allergy/AdvReac Type Severity Reaction Status Date / Time tuna oil Allergy Verified 11/13/18 20:36 - Home Medications Home Medications: Ambulatory Orders Clopidogrel Bisulfate [Plavix -] 75 mg PO DAILY 05/17/16 Gabapentin 300 mg PO AM 05/17/16 Apixaban [Eliquis -] 5 mg PO BID tablet 07/25/16 Colchicine 0.6 mg PO DAILY 12/02/16 Meclizine HCl [Antivert -] 1 tab PO PRN 10/10/18 Allopurinol [Zyloprim -] 300 mg PO DAILY 11/13/18 Cyclosporine 100 mg PO DAILY 11/14/18 Cyclosporine [SandIMMUNE (NF) -] 100 mg PO DAILY 11/14/18 Dulaglutide [Trulicity] 0.75 mg SQ WEEKLY 11/14/18 Gabapentin 600 mg PO HS 11/14/18 Acetaminophen [Tylenol .Regular Strength -] 650 mg PO Q6H PRN tablet 11/17/18 Amlodipine Besylate [Norvasc -] 10 mg PO DAILY #30 tablet 11/17/18 Ammonium Lactate Lotion [Lac-Hydrin 12] 1 applic TP BID PRN #1 bottle 11/17/18 Apixaban [Eliquis -] 5 mg PO BID tablet 11/17/18 Aspirin [ASA -] 81 mg PO DAILY tab.chew 11/17/18 Atorvastatin Ca [Lipitor] 40 mg PO HS #30 tablet 11/17/18 Clopidogrel Bisulfate [Plavix -] 75 mg PO DAILY tablet 11/17/18 Docusate Sodium [Colace -] 100 mg PO TID #90 capsule 11/17/18 Polyethylene Glycol 3350 [Miralax 119 gm Btl -] 17 gm PO DAILY #1 bottle Sennosides [Senna -] 2 tab PO HS PRN #60 tablet 11/17/18 Sodium Zirconium Cyclosilicate [Lokelma] 10 gm PO BID #60 packet 11/17/18 Torsemide [Demadex -] 50 mg PO DAILY #30 tablet 11/17/18 hydrALAZINE HCL [Apresoline -] 25 mg PO TID #90 tablet 11/17/18 Review of Systems Findings/Remarks: Denies fevers, chills, changes in vision/ hearing/ mood, CP, SOB, abdominal pain , nausea, vomiting, constipation, diarrhea, dysuria, bowel/ bladder incontinence. Notes having a cough, BLE edema, B foot "cold", and LLE/ LBP as per HPI Physical Exam Vital Signs: Vital Signs Temperature 97.5 F L 12/15/18 08:00 Pulse Rate 71 12/15/18 08:00 Respiratory Rate 17 12/15/18 09:00 Blood Pressure 171/60 H 12/15/18 08:00 O2 Sat by Pulse Oximetry (%) 97 12/15/18 09:00 Musculoskeletal: Yes: Other (General: calm elderly M lying in bed NAD, AAOx3 N/M : 4-/5 R HF then 5-/5 RLE, 1/5 L HF/ KE then 5-/5 L DF/ EHL; Pinprick intact R knee then decreased L knee down; +L SLR Extremities: 1+ BLE pitting edema, no B calf tenderness, +chronic skin changes below mid- calf bilaterally) Labs: CBC, BMP 12/15/18 05:20 12/15/18 05:20 Imaging - Results Cat Scan: Report Reviewed (CT LS spine as per HPI) Assessment/Plan Electrodiagnostics were performed, please see scanned images for details. There is electrophysiological evidence of a chronic L L4 radiculopathy. 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 Impression: 1) Deficits mobility/ ADLs 2) Deconditioning 3) Gait abnormality 4) Chronic L L4 radiculopathy with lumbar stenosis and facet arthropathy 5) Diabetic and gouty neuropathy 6) ZHANG on CKD with weight gain 7) A fib, CAD s/p stent x2, CHF, HTN, HLD 8) GERD 9) Anemia 10) DM 11) Gout 12) hx L 5th toe OM 13) Obesity 14) Up to date flu shot/ pneumovax Recommendations: 1) In-house PT for functional mobility 2) Outpatient PT for flexion- based core strengthening with modalities 3) Falls, safety precautions 4) Cardiac, diabetic precautions 5) Heat/ ice LS spine prn 6) DVT ppx: on Eliquis 7) Denies constipation on current bowel regimen 8) Skin protection: float heels, frequent turning 9) Monitor CBC given anemia 10) Monitor BMP given renal function 11) Nutrition consult for obesity 12) Consider Pain Management for possible SHAVONNE versus oral medications 13) Continue work-up per primary team 14) Discharge planning: will likely be able to return to home with home versus outpatient therapy once pain controlled Thank you for this referral.
--- NOTE | 2018-12-15 13:35 | CONSULT ---
Consultation: REQUESTING PROVIDER: HEME/ONC Service CONSULT REQUEST: We have been asked to medically evaluate this patient for anemia. HISTORY OF PRESENT ILLNESS: Pt is a 63 y/o M with PMH Large Cell Granular Lymphocytosis, AFIB, CAD (with stents), CHF, HTN, Hyperlipdemia, GERD, Renal Inusuff, Anemia, DM, 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 He presented to the ED sent by PCP for complaint of SOB and weight gain. He states he gained 13 lbs with increasing leg swelling and increased shortness of breath. States he has been slowly losing weight (~40 lbs ) over the past months due to portion control with his diet. However, over the past few weeks he states he has increased his fluid. Notably he takes a diuretic and states he has not changed dosage recently. He states he has also had a cough for the last 2-3 weeks productive of yellow sputum without blood. He denies fever, but admits to having chills. He states his was diagnosed with pneumonia around the same time that he developed his cough. No recent travel. Regarding his Large Cell Granular Lymphocytosis and anemia, he has had both conditions chronically (Dx in 2015). He takes Cyclosporine as an outpt. His hemoglobin of 8.8 has been stable over the past few months and is somewhat depressed from 2017. Pt states he was given Fe supplement years ago, but has not been taking it because it caused him constipation. REVIEW OF SYSTEMS: CONSTITUTIONAL: chills,weight change Absent: fever, diaphoresis, generalized weakness, malaise, loss of appetite, HEENT: Absent: rhinorrhea, nasal congestion, throat pain, throat swelling, difficulty swallowing, mouth swelling, ear pain, eye pain, visual changes CARDIOVASCULAR: peripheral edema Absent: chest pain, syncope, palpitations, irregular heart rate, lightheadedness , RESPIRATORY: cough, shortness of breath Absent: , dyspnea with exertion, orthopnea, wheezing, stridor, hemoptysis GASTROINTESTINAL: Absent: abdominal pain, abdominal distension, nausea, vomiting, diarrhea, constipation, melena, hematochezia GENITOURINARY: Absent: dysuria, frequency, urgency, hesitancy, hematuria, flank pain, genital pain MUSCULOSKELETAL: Absent: myalgia, arthralgia, joint swelling, back pain, neck pain SKIN: Absent: rash, itching, pallor HEMATOLOGIC/IMMUNOLOGIC: Absent: easy bleeding, easy bruising, lymphadenopathy, frequent infections ENDOCRINE: Absent: unexplained weight gain, unexplained weight loss, heat intolerance, cold intolerance NEUROLOGIC: Absent: headache, focal weakness or paresthesias, dizziness, unsteady gait, seizure, mental status changes, bladder or bowel incontinence PSYCHIATRIC: Absent: anxiety, depression, suicidal or homicidal ideation, hallucinations. PHYSICAL EXAMINATION Vital Signs - 24 hr 12/14/18 12/14/18 12/14/18 17:06 18:00 19:48 Temperature 97.3 F L 97.4 F L Pulse Rate 74 Pulse Rate [ 70 Apical] Respiratory 24 H 20 20 Rate Blood Pressure 158/89 Blood Pressure 152/51 L [Left Arm] O2 Sat by Pulse 98 98 Oximetry (%) 12/14/18 12/15/18 12/15/18 21:00 00:37 04:00 Temperature 98 F 98.4 F Pulse Rate 79 60 Pulse Rate [ Apical] Respiratory 20 20 20 Rate Blood Pressure 160/68 157/54 L Blood Pressure [Left Arm] O2 Sat by Pulse 98 Oximetry (%) 12/15/18 12/15/18 08:00 09:00 Temperature 97.5 F L Pulse Rate 71 Pulse Rate [ Apical] Respiratory 18 17 Rate Blood Pressure 171/60 H Blood Pressure [Left Arm] O2 Sat by Pulse 97 Oximetry (%) GENERAL: Awake, alert, and fully oriented, in no acute distress. Obese HEAD: Normal with no signs of trauma. EYES: extraocular movements intact, sclera anicteric, conjunctiva clear. No lid lag. EARS, NOSE, THROAT: nares patent, oropharynx clear without exudates. Moist mucous membranes. NECK: Normal range of motion, supple without lymphadenopathy, or masses. JVD present LUNGS: decreased Breath sounds bilaterally. No wheezes, and no crackles. No accessory muscle use. HEART: Regular rate and rhythm, normal S1 and S2 without murmur, rub or gallop. ABDOMEN: Obese Soft, nontender, not distended, normoactive bowel sounds, no guarding, no rebound, no masses. No hepatomegaly or splenomegaly. scrotal edema LOWER EXTREMITIES: 2+ pulses, profound edema, stasis dermatitis, varicose veins. R 4th toe absent Laboratory Results - last 24 hr 12/14/18 12/14/18 12/14/18 15:04 15:04 15:04 WBC 3.7 L RBC 3.34 L Hgb 9.3 L Hct 28.8 L MCV 86.3 MCH 27.8 MCHC 32.2 RDW 18.8 H Plt Count 215 MPV 8.4 D Absolute Neuts (auto) 1.3 L Neutrophils % 35.1 L D Neutrophils % (Manual) Band Neutrophils % Lymphocytes % 38.2 D Lymphocytes % (Manual) Monocytes % 14.3 H Monocytes % (Manual) Eosinophils % 11.3 H Eosinophils % (Manual) Basophils % 1.1 Basophils % (Manual) Myelocytes % (Man) Promyelocytes % (Man) Blast Cells % (Manual) Nucleated RBC % 0 Metamyelocytes Hypochromia Platelet Estimate Polychromasia Poikilocytosis Anisocytosis Microcytosis Macrocytosis Retic Count PT with INR 17.80 H INR 1.50 H PTT (Actin FS) 36.1 Sodium 141 Potassium 5.1 Chloride 117 H Carbon Dioxide 17 L Anion Gap 7 L BUN 59.7 H Creatinine 2.6 H Est GFR (CKD-EPI)AfAm 29.32 Est GFR (CKD-EPI)NonAf 25.30 POC Glucometer Random Glucose 105 Hemoglobin A1c % Calcium 7.6 L Phosphorus Magnesium Iron TIBC Iron Saturation Unsaturated IBC Ferritin 142.5 Total Bilirubin 0.3 AST 12 L ALT 12 L Alkaline Phosphatase 158 H Creatine Kinase Troponin I B-Natriuretic Peptide 1886.8 H Total Protein 6.4 Albumin 2.7 L Triglycerides Cholesterol Total LDL Cholesterol HDL Cholesterol Blood Type Antibody Screen 12/14/18 12/14/18 12/14/18 15:04 15:04 15:04 WBC RBC Hgb Hct MCV MCH MCHC RDW Plt Count MPV Absolute Neuts (auto) Neutrophils % Neutrophils % (Manual) Band Neutrophils % Lymphocytes % Lymphocytes % (Manual) Monocytes % Monocytes % (Manual) Eosinophils % Eosinophils % (Manual) Basophils % Basophils % (Manual) Myelocytes % (Man) Promyelocytes % (Man) Blast Cells % (Manual) Nucleated RBC % Metamyelocytes Hypochromia Platelet Estimate Polychromasia Poikilocytosis Anisocytosis Microcytosis Macrocytosis Retic Count 2.30 H PT with INR INR PTT (Actin FS) Sodium Potassium Chloride Carbon Dioxide Anion Gap BUN Creatinine Est GFR (CKD-EPI)AfAm Est GFR (CKD-EPI)NonAf POC Glucometer Random Glucose Hemoglobin A1c % Calcium Phosphorus Magnesium Iron 58 TIBC 231 L Iron Saturation 25 Unsaturated IBC 173 L Ferritin Total Bilirubin AST ALT Alkaline Phosphatase Creatine Kinase Troponin I B-Natriuretic Peptide Total Protein Albumin Triglycerides Cholesterol Total LDL Cholesterol HDL Cholesterol Blood Type A POSITIVE Antibody Screen Negative 12/14/18 12/14/18 12/15/18 17:44 21:32 05:20 WBC RBC Hgb Hct MCV MCH MCHC RDW Plt Count MPV Absolute Neuts (auto) Neutrophils % Neutrophils % (Manual) Band Neutrophils % Lymphocytes % Lymphocytes % (Manual) Monocytes % Monocytes % (Manual) Eosinophils % Eosinophils % (Manual) Basophils % Basophils % (Manual) Myelocytes % (Man) Promyelocytes % (Man) Blast Cells % (Manual) Nucleated RBC % Metamyelocytes Hypochromia Platelet Estimate Polychromasia Poikilocytosis Anisocytosis Microcytosis Macrocytosis Retic Count PT with INR INR PTT (Actin FS) Sodium Potassium Chloride Carbon Dioxide Anion Gap BUN Creatinine Est GFR (CKD-EPI)AfAm Est GFR (CKD-EPI)NonAf POC Glucometer 91 112 Random Glucose Hemoglobin A1c % 6.1 Calcium Phosphorus Magnesium Iron TIBC Iron Saturation Unsaturated IBC Ferritin Total Bilirubin AST ALT Alkaline Phosphatase Creatine Kinase Troponin I B-Natriuretic Peptide Total Protein Albumin Triglycerides Cholesterol Total LDL Cholesterol HDL Cholesterol Blood Type Antibody Screen 12/15/18 12/15/18 12/15/18 05:20 05:20 05:57 WBC 2.5 L RBC 3.15 L Hgb 8.8 L Hct 26.6 L MCV 84.3 MCH 27.9 MCHC 33.1 RDW 18.7 H Plt Count 192 MPV 9.0 Absolute Neuts (auto) 1.3 L Neutrophils % 50.4 D Neutrophils % (Manual) 54.0 D Band Neutrophils % 0.0 Lymphocytes % 23.3 D Lymphocytes % (Manual) 23.0 D Monocytes % 14.0 H Monocytes % (Manual) 7 Eosinophils % 10.9 H Eosinophils % (Manual) 15.0 H D Basophils % 1.4 Basophils % (Manual) 1.0 Myelocytes % (Man) 0 Promyelocytes % (Man) 0 Blast Cells % (Manual) 0 Nucleated RBC % 0 Metamyelocytes 0 Hypochromia 0 Platelet Estimate Normal Polychromasia 1+ Poikilocytosis 1+ Anisocytosis 1+ Microcytosis 0 Macrocytosis 0 Retic Count PT with INR INR PTT (Actin FS) Sodium 140 Potassium 5.9 H Chloride 117 H Carbon Dioxide 18 L Anion Gap 4 L BUN 56.7 H Creatinine 2.1 H Est GFR (CKD-EPI)AfAm 37.96 Est GFR (CKD-EPI)NonAf 32.75 POC Glucometer 113 Random Glucose 127 H Hemoglobin A1c % Calcium 7.7 L Phosphorus 4.5 Magnesium 2.1 Iron TIBC Iron Saturation Unsaturated IBC Ferritin Total Bilirubin 0.4 AST 8 L ALT 11 L Alkaline Phosphatase 148 H Creatine Kinase 38 Troponin I < 0.02 B-Natriuretic Peptide 1775.5 H Total Protein 5.9 L Albumin 2.4 L Triglycerides 67 Cholesterol 105 Total LDL Cholesterol 53 HDL Cholesterol 45 Blood Type Antibody Screen 12/15/18 10:52 WBC RBC Hgb Hct MCV MCH MCHC RDW Plt Count MPV Absolute Neuts (auto) Neutrophils % Neutrophils % (Manual) Band Neutrophils % Lymphocytes % Lymphocytes % (Manual) Monocytes % Monocytes % (Manual) Eosinophils % Eosinophils % (Manual) Basophils % Basophils % (Manual) Myelocytes % (Man) Promyelocytes % (Man) Blast Cells % (Manual) Nucleated RBC % Metamyelocytes Hypochromia Platelet Estimate Polychromasia Poikilocytosis Anisocytosis Microcytosis Macrocytosis Retic Count PT with INR INR PTT (Actin FS) Sodium Potassium Chloride Carbon Dioxide Anion Gap BUN Creatinine Est GFR (CKD-EPI)AfAm Est GFR (CKD-EPI)NonAf POC Glucometer 142 Random Glucose Hemoglobin A1c % Calcium Phosphorus Magnesium Iron TIBC Iron Saturation Unsaturated IBC Ferritin Total Bilirubin AST ALT Alkaline Phosphatase Creatine Kinase Troponin I B-Natriuretic Peptide Total Protein Albumin Triglycerides Cholesterol Total LDL Cholesterol HDL Cholesterol Blood Type Antibody Screen Active Medications Generic Name Dose Route Start Last Admin Trade Name Lisbeth PRN Reason Stop Dose Admin Acetaminophen 650 mg 12/15/18 06:39 12/15/18 07:00 Tylenol - PO 650 mg Q6H PRN Administration PAIN LEVEL 1-5 Allopurinol 300 mg 12/14/18 22:30 12/14/18 23:09 Zyloprim - PO 300 mg HS JENNY Administration Amlodipine Besylate 5 mg 12/15/18 08:00 12/15/18 09:09 Norvasc - PO 5 mg DAILY@0800 JENNY Administration Apixaban 5 mg 12/14/18 22:27 12/15/18 09:09 Eliquis - PO 5 mg BID JENNY Administration Aspirin 81 mg 12/15/18 10:00 12/15/18 09:09 Asa - PO 81 mg DAILY JENNY Administration Atorvastatin Calcium 40 mg 12/14/18 22:00 12/14/18 21:33 Lipitor - PO 40 mg HS JENNY Administration Clopidogrel Bisulfate 75 mg 12/15/18 06:00 12/15/18 05:54 Plavix - PO 75 mg DAILY@0600 JENNY Administration Colchicine 0.6 mg 12/15/18 10:00 12/15/18 09:11 Colcrys PO 0.6 mg DAILY JENNY Administration Cyclosporine 100 mg 12/14/18 22:30 12/14/18 23:09 Sandimmune PO 100 mg HS JENNY Administration Furosemide 40 mg 12/15/18 14:00 Lasix Injection - IVPUSH BID@0600,1400 JENNY Gabapentin 300 mg 12/14/18 22:00 12/15/18 05:54 Neurontin - PO 300 mg TID JENNY Administration Hydralazine HCl 25 mg 12/14/18 22:00 12/15/18 05:54 Apresoline - PO 25 mg TID JENNY Administration Ceftriaxone Sodium 1 gm/ 50 mls @ 100 mls/hr 12/14/18 16:00 12/15/18 09:12 Dextrose IVPB 100 mls/hr DAILY JENNY Administration Protocol Insulin Aspart 1 vial 12/14/18 16:30 12/15/18 10:53 Novolog Vial Sliding Scale - SQ Not Given ACHS [facility] Protocol Meclizine HCl 12.5 mg 12/15/18 11:00 Antivert - PO DAILY PRN vertigo Sodium Zirconium Cyclosilicate 10 gm 12/15/18 11:00 12/15/18 11:09 Lokelma PO 10 gm DAILY JENNY Administration Tramadol HCl 50 mg 12/15/18 08:37 Ultram - PO Q6H PRN PAIN LEVEL 6-10 ASSESSMENT/PLAN: Pt is a 63 y/o M with PMH Large Cell Granular Lymphocytosis, AFIB, CAD (with stents), CHF, HTN, Hyperlipdemia, GERD, Renal Inusuff, Anemia, DM, 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 He presented to the ED sent by PCP for complaint of SOB and weight gain. #? URI vs atypical PNA vs CHF exacerbation -2-3 weeks of cough with yellow sputum, SOB - with PNA during the same period -CXR unremarkable. ? CT chest -Urine Ag #Normocytic Normochromic Anemia -Hb 8.8, near baseline over several months -RDW 18 -Retic count 2.3, Retic Index 0.7% -> inadequate BM response -Fe 58, TIBC 231, Sat 25, Ferritin 142 suggestive of mixed inflammatory and Fe- deficient anemia -Receiving IV Ferric Carboxymaltose -Possible etiologies/contributions include anemia of chronic disease/ inflammatory anemia, hematological disorder (Large Cell Granular Lymphocytosis) , and Renal disease. Considering renal function, pt may be a candidate for erythropoietin stimulating agent #Large Cell Granular Lymphocytosis -Peripheral and BM involvement -cyclosporine Dispo: We will continue to follow the patient. Thank you for this consultative opportunity. Visit type - Emergency Visit Emergency Visit: No - New Patient This patient is new to me today: Yes Date on this admission: 12/16/18 - Critical Care Critical Care patient: No ATTENDING PHYSICIAN STATEMENT I saw and evaluated the patient. I reviewed the resident's note and discussed the case with the resident. I agree with the resident's findings and plan as documented. SUBJECTIVE: OBJECTIVE: ASSESSMENT AND PLAN:
[2018-12-15] MEDS: FUROSEMIDE 40 MG/4 ML INJECTABLE VIAL IVPUSH SCH (13:45)
--- NOTE | 2018-12-15 16:44 | PN ---
Teaching Attending Note Name of Resident: Ang Lee (Nephrology) ATTENDING PHYSICIAN STATEMENT I saw and evaluated the patient. I reviewed the resident's note and discussed the case with the resident. I agree with the resident's findings and plan as documented. Nephrology Pt is a 63 year old male with pmhx of chf, ckd, anemia, leukemia and cad who was sen in for fluid overload. He complains of increased lower ext edema. He says that the diuretics were not working at home. pmhx ckd dm pvd obesity gout anemia pshx cardiac stents allergy tuna oil social denies family hx dm ros lower ext edema Current Medications Generic Name Dose Route Start Last Admin Trade Name Freq PRN Reason Stop Dose Admin Acetaminophen 650 mg 12/15/18 06:39 12/15/18 07:00 Tylenol - PO 650 mg Q6H PRN Administration PAIN LEVEL 1-5 Allopurinol 300 mg 12/14/18 22:30 12/14/18 23:09 Zyloprim - PO 300 mg HS JENNY Administration Amlodipine Besylate 5 mg 12/15/18 08:00 12/15/18 09:09 Norvasc - PO 5 mg DAILY@0800 JENNY Administration Apixaban 5 mg 12/14/18 22:27 12/15/18 09:09 Eliquis - PO 5 mg BID JENNY Administration Aspirin 81 mg 12/15/18 10:00 12/15/18 09:09 Asa - PO 81 mg DAILY JENNY Administration Atorvastatin Calcium 40 mg 12/14/18 22:00 12/14/18 21:33 Lipitor - PO 40 mg HS JENNY Administration Clopidogrel Bisulfate 75 mg 12/15/18 06:00 12/15/18 05:54 Plavix - PO 75 mg DAILY@0600 JENNY Administration Colchicine 0.6 mg 12/15/18 10:00 12/15/18 09:11 Colcrys PO 0.6 mg DAILY JENNY Administration Cyclosporine 100 mg 12/14/18 22:30 12/14/18 23:09 Sandimmune PO 100 mg HS JENNY Administration Furosemide 40 mg 12/15/18 14:00 12/15/18 13:45 Lasix Injection - IVPUSH 40 mg BID@0600,1400 JENNY Administration Gabapentin 300 mg 12/14/18 22:00 12/15/18 13:45 Neurontin - PO 300 mg TID JENNY Administration Hydralazine HCl 25 mg 12/14/18 22:00 12/15/18 13:45 Apresoline - PO 25 mg TID JENNY Administration Ceftriaxone Sodium 1 gm/ 50 mls @ 100 mls/hr 12/14/18 16:00 12/15/18 09:12 Dextrose IVPB 100 mls/hr DAILY JENNY Administration Protocol Insulin Aspart 1 vial 12/14/18 16:30 12/15/18 10:53 Novolog Vial Sliding Scale - SQ Not Given ACHS [facility] Protocol Meclizine HCl 12.5 mg 12/15/18 11:00 Antivert - PO DAILY PRN vertigo Sodium Zirconium Cyclosilicate 10 gm 12/15/18 11:00 12/15/18 11:09 Lokelma PO 10 gm DAILY JENNY Administration Tramadol HCl 50 mg 12/15/18 08:37 Ultram - PO Q6H PRN PAIN LEVEL 6-10 Last Vital Signs Temp Pulse Resp BP Pulse Ox 98.7 F 73 16 139/69 97 12/15/18 14:20 12/15/18 14:20 12/15/18 14:20 12/15/18 14:20 12/15/18 09:00 Laboratory Tests 10/11/18 10/12/18 10/13/18 06:19 06:15 05:05 Hgb Sodium Potassium Creatinine 1.9 H 2.0 H 2.1 H 11/16/18 11/17/18 12/14/18 05:30 06:10 15:04 Hgb 9.3 L Sodium Potassium Creatinine 1.9 H 1.3 12/14/18 12/15/18 12/15/18 15:04 05:20 05:20 Hgb 8.8 L Sodium 140 Potassium 5.1 5.9 H Creatinine 2.6 H 2.1 H cardio s1s2 pulm clear GI soft, obese ext edema neuro awake and alert skin venous stasis changes Impression 1. CKD 2. ZHANG 3. s/p cardiac stent 4. morbid obesity 5. DM 6. PVD 7. Gout 8. Large cell granular leukemia/lymphoma 9. anemia 10. 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
[2018-12-15 19:09] LABS: BLOOD UREA NITROGEN 52.8 mg/dL (7-18); CALCIUM 8.1 mg/dL (8.5-10.1); CREATININE 1.8 mg/dL (0.55-1.3); POTASSIUM 5.2 mmol/L (3.5-5.1)
[2018-12-15] MEDS: ATORVASTATIN CA 40 MG TABLET (FP) PO SCH (22:04)
[2018-12-15] MEDS: ALLOPURINOL 300 MG TABLET (FP) PO SCH (22:05)
--- NOTE | 2018-12-16 00:19 | CONSULT ---
Consult Consult Specialty:: Endocrine Referred by:: Hernán anderson md. Reason for Consultation:: dm type 2 - History of Present Illness Chief Complaint: leg pain and difficulty walking History of Present Illness: 63 year old man with pmh, DMt2,A fib, CAD s/p stent x2, CHF, HTN, HLD, GERD. GOPAL / renal insufficiency, anemia, leukemia, gout, L 5th toe OM, who presented with weight gain and SOB. He was admitted for weight gain and GOPAL ,and L buttock pain which radiates into the L anterior thigh then medial calf and ankle, difficulty weight bearing.his sugars have been lower from poor appetite and nauseated feeling - Past Medical History E[employer] SP[employer] MIXER: Yes: Peripheral Neuropathy Cardio/Vascular: Yes: AFIB, CAD, CHF, HTN, Hyperlipdemia Gastrointestinal: Yes: GERD Renal/: Yes: Renal Inusuff, Other (gopal) Infectious Disease: Yes: Other (osteomyelitis of left fifth metartarsal 2011) Endocrine: Yes: Diabetes Mellitus Additional Medical History: morbid obesity - Past Surgical History Past Surgical History: Yes: Stent (X2) - Alcohol/Substance Use Hx Alcohol Use: No History of Substance Use: reports: None - Smoking History Smoking history: Never smoked Have you smoked in the past 12 months: No Aproximately how many cigarettes per day: 0 - Social History Usual Living Arrangement: With Spouse (in house with 2 steps to enter and 20 inside) ADL: Independent (without AD) History of Recent Travel: No Home Medications - Allergies Allergies/Adverse Reactions: Allergies Allergy/AdvReac Type Severity Reaction Status Date / Time tuna oil Allergy Verified 11/13/18 20:36 - Home Medications Home Medications: Ambulatory Orders Clopidogrel Bisulfate [Plavix -] 75 mg PO DAILY 05/17/16 Gabapentin 300 mg PO AM 05/17/16 Apixaban [Eliquis -] 5 mg PO BID tablet 07/25/16 Colchicine 0.6 mg PO DAILY 12/02/16 Meclizine HCl [Antivert -] 1 tab PO PRN 10/10/18 Allopurinol [Zyloprim -] 300 mg PO DAILY 11/13/18 Cyclosporine 100 mg PO DAILY 11/14/18 Cyclosporine [SandIMMUNE (NF) -] 100 mg PO DAILY 11/14/18 Dulaglutide [Trulicity] 0.75 mg SQ WEEKLY 11/14/18 Gabapentin 600 mg PO HS 11/14/18 Acetaminophen [Tylenol .Regular Strength -] 650 mg PO Q6H PRN tablet 11/17/18 Amlodipine Besylate [Norvasc -] 10 mg PO DAILY #30 tablet 11/17/18 Ammonium Lactate Lotion [Lac-Hydrin 12] 1 applic TP BID PRN #1 bottle 11/17/18 Apixaban [Eliquis -] 5 mg PO BID tablet 11/17/18 Aspirin [ASA -] 81 mg PO DAILY tab.chew 11/17/18 Atorvastatin Ca [Lipitor] 40 mg PO HS #30 tablet 11/17/18 Clopidogrel Bisulfate [Plavix -] 75 mg PO DAILY tablet 11/17/18 Docusate Sodium [Colace -] 100 mg PO TID #90 capsule 11/17/18 Polyethylene Glycol 3350 [Miralax 119 gm Btl -] 17 gm PO DAILY #1 bottle Sennosides [Senna -] 2 tab PO HS PRN #60 tablet 11/17/18 Sodium Zirconium Cyclosilicate [Lokelma] 10 gm PO BID #60 packet 11/17/18 Torsemide [Demadex -] 50 mg PO DAILY #30 tablet 11/17/18 hydrALAZINE HCL [Apresoline -] 25 mg PO TID #90 tablet 11/17/18 Review of Systems - Review of Systems Constitutional: reports: Lethargy, Weakness Eyes: reports: No Symptoms HENT: reports: No Symptoms Neck: reports: No Symptoms Cardiovascular: reports: Shortness of Breath Respiratory: reports: Exercise Intolerance, SOB on Exertion Gastrointestinal: reports: Abdominal Pain, Bloating, Constipation Genitourinary: reports: No Symptoms Breasts: reports: No Symptoms Reported Musculoskeletal: reports: Back Pain, Joint Swelling, Muscle Pain Endocrine: reports: Unexplained Weight Gain Physical Exam Vital Signs: Vital Signs Temperature 98.3 F 12/15/18 18:00 Pulse Rate 77 12/15/18 18:00 Respiratory Rate 18 12/15/18 18:00 Blood Pressure 160/66 12/15/18 18:00 O2 Sat by Pulse Oximetry (%) 97 12/15/18 09:00 Constitutional: Yes: Anxious Eyes: Yes: EOM Intact HENT: Yes: Normocephalic Neck: Yes: Trachea Midline Cardiovascular: Yes: Regular Rate and Rhythm Respiratory: Yes: CTA Bilaterally Gastrointestinal: Yes: Normal Bowel Sounds ...Rectal Exam: Yes: Deferred Renal/: Yes: WNL Musculoskeletal: Yes: Back Pain, Muscle Pain, Muscle Weakness Extremities: Yes: Delayed Capillary Refill, Erythema, Pallor Edema: Yes Edema: LLE: 3+, RLE: 3+ Neurological: Yes: Alert, Oriented, Numbness, Tingling, Unsteady Gait, Weakness Labs: CBC, BMP 12/15/18 05:20 12/15/18 18:15 Problem List - Problems (1) Type 2 diabetes mellitus with other diabetic kidney complication Problems reviewed: Yes Code(s): E11.29 - TYPE 2 DIABETES MELLITUS W OTH DIABETIC KIDNEY COMPLICATION (2) GOPAL (acute kidney injury) Problems reviewed: Yes Code(s): N17.9 - ACUTE KIDNEY FAILURE, UNSPECIFIED (3) Anemia Problems reviewed: Yes Code(s): D64.9 - ANEMIA, UNSPECIFIED Qualifiers: Anemia type: iron deficiency Iron deficiency anemia type: unspecified iron deficiency Qualified Code(s): D50.9 - Iron deficiency anemia, unspecified (4) CHF (congestive heart failure) Code(s): I50.9 - HEART FAILURE, UNSPECIFIED Qualifiers: Heart failure type: unspecified Heart failure chronicity: acute on chronic Qualified Code(s): I50.9 - Heart failure, unspecified (5) CKD (chronic kidney disease) Code(s): N18.9 - CHRONIC KIDNEY DISEASE, UNSPECIFIED Qualifiers: Chronic kidney disease stage: unspecified stage Qualified Code(s): N18.9 - Chronic kidney disease, unspecified (6) Cough Code(s): R05 - COUGH (7) Fluid overload Code(s): E87.70 - FLUID OVERLOAD, UNSPECIFIED Qualifiers: Hypervolemia type: unspecified Qualified Code(s): E87.70 - Fluid overload, unspecified (8) Radiculopathy Code(s): M54.10 - RADICULOPATHY, SITE UNSPECIFIED Qualifiers: Spinal region: lumbosacral Qualified Code(s): M54.17 - Radiculopathy, lumbosacral region Assessment/Plan Current Active Problems dm t2,ckd,neuropathy GOPAL (acute kidney injury) (Acute) Anemia (Acute) CHF (congestive heart failure) (Acute) CKD (chronic kidney disease) (Acute) Cough (Acute) Fluid overload (Acute) Radiculopathy (Acute) Weakness (Acute) Weight gain (Acute) Abnormal Lab Results 12/15/18 12/15/18 12/15/18 05:20 05:20 18:15 WBC 2.5 L RBC 3.15 L Hgb 8.8 L Hct 26.6 L RDW 18.7 H Absolute Neuts (auto) 1.3 L Monocytes % 14.0 H Eosinophils % 10.9 H Eosinophils % (Manual) 15.0 H D Potassium 5.9 H 5.2 H Chloride 117 H 116 H Carbon Dioxide 18 L 20 L Anion Gap 4 L 5 L BUN 56.7 H 52.8 H Creatinine 2.1 H 1.8 H Random Glucose 127 H 128 H Calcium 7.7 L 8.1 L AST 8 L ALT 11 L Alkaline Phosphatase 148 H B-Natriuretic Peptide 1775.5 H Total Protein 5.9 L Albumin 2.4 L Laboratory Results - last 24 hr 12/14/18 12/15/18 12/15/18 17:44 05:20 05:20 WBC 2.5 L RBC 3.15 L Hgb 8.8 L Hct 26.6 L MCV 84.3 MCH 27.9 MCHC 33.1 RDW 18.7 H Plt Count 192 MPV 9.0 Absolute Neuts (auto) 1.3 L Neutrophils % 50.4 D Neutrophils % (Manual) 54.0 D Band Neutrophils % 0.0 Lymphocytes % 23.3 D Lymphocytes % (Manual) 23.0 D Monocytes % 14.0 H Monocytes % (Manual) 7 Eosinophils % 10.9 H Eosinophils % (Manual) 15.0 H D Basophils % 1.4 Basophils % (Manual) 1.0 Myelocytes % (Man) 0 Promyelocytes % (Man) 0 Blast Cells % (Manual) 0 Nucleated RBC % 0 Metamyelocytes 0 Hypochromia 0 Platelet Estimate Normal Polychromasia 1+ Poikilocytosis 1+ Anisocytosis 1+ Microcytosis 0 Macrocytosis 0 Sodium Potassium Chloride Carbon Dioxide Anion Gap BUN Creatinine Est GFR (CKD-EPI)AfAm Est GFR (CKD-EPI)NonAf POC Glucometer 91 Random Glucose Hemoglobin A1c % 6.1 Calcium Phosphorus Magnesium Total Bilirubin AST ALT Alkaline Phosphatase Creatine Kinase Troponin I B-Natriuretic Peptide Total Protein Albumin Triglycerides Cholesterol Total LDL Cholesterol HDL Cholesterol 12/15/18 12/15/18 12/15/18 05:20 05:57 10:52 WBC RBC Hgb Hct MCV MCH MCHC RDW Plt Count MPV Absolute Neuts (auto) Neutrophils % Neutrophils % (Manual) Band Neutrophils % Lymphocytes % Lymphocytes % (Manual) Monocytes % Monocytes % (Manual) Eosinophils % Eosinophils % (Manual) Basophils % Basophils % (Manual) Myelocytes % (Man) Promyelocytes % (Man) Blast Cells % (Manual) Nucleated RBC % Metamyelocytes Hypochromia Platelet Estimate Polychromasia Poikilocytosis Anisocytosis Microcytosis Macrocytosis Sodium 140 Potassium 5.9 H Chloride 117 H Carbon Dioxide 18 L Anion Gap 4 L BUN 56.7 H Creatinine 2.1 H Est GFR (CKD-EPI)AfAm 37.96 Est GFR (CKD-EPI)NonAf 32.75 POC Glucometer 113 142 Random Glucose 127 H Hemoglobin A1c % Calcium 7.7 L Phosphorus 4.5 Magnesium 2.1 Total Bilirubin 0.4 AST 8 L ALT 11 L Alkaline Phosphatase 148 H Creatine Kinase 38 Troponin I < 0.02 B-Natriuretic Peptide 1775.5 H Total Protein 5.9 L Albumin 2.4 L Triglycerides 67 Cholesterol 105 Total LDL Cholesterol 53 HDL Cholesterol 45 12/15/18 12/15/18 12/15/18 16:28 18:15 22:07 WBC RBC Hgb Hct MCV MCH MCHC RDW Plt Count MPV Absolute Neuts (auto) Neutrophils % Neutrophils % (Manual) Band Neutrophils % Lymphocytes % Lymphocytes % (Manual) Monocytes % Monocytes % (Manual) Eosinophils % Eosinophils % (Manual) Basophils % Basophils % (Manual) Myelocytes % (Man) Promyelocytes % (Man) Blast Cells % (Manual) Nucleated RBC % Metamyelocytes Hypochromia Platelet Estimate Polychromasia Poikilocytosis Anisocytosis Microcytosis Macrocytosis Sodium 141 Potassium 5.2 H Chloride 116 H Carbon Dioxide 20 L Anion Gap 5 L BUN 52.8 H Creatinine 1.8 H Est GFR (CKD-EPI)AfAm 45.73 Est GFR (CKD-EPI)NonAf 39.46 POC Glucometer 112 129 Random Glucose 128 H Hemoglobin A1c % Calcium 8.1 L Phosphorus Magnesium Total Bilirubin AST ALT Alkaline Phosphatase Creatine Kinase Troponin I B-Natriuretic Peptide Total Protein Albumin Triglycerides Cholesterol Total LDL Cholesterol HDL Cholesterol plan: diet nutrition consult bgm bid as weigh loss has improved glycemia ck tsh free t4
[2018-12-16] MEDS: GABAPENTIN 300 MG CAPSULE (FP) PO SCH ×2 (06:26→13:49)
[2018-12-16] MEDS: CLOPIDOGREL BISULFATE 75 MG TABLET (FP) PO SCH (06:26)
[2018-12-16] MEDS: INSULIN SLIDING SCALE (NOVOLOG) 1 VIAL SQ SCH ×3 (06:26→18:57)
[2018-12-16] MEDS: hydrALAZINE HCL 25 MG TABLET (FP) PO SCH ×3 (06:26→22:42)
[2018-12-16] MEDS: FUROSEMIDE 40 MG/4 ML INJECTABLE VIAL IVPUSH SCH ×2 (06:26→13:49)
--- NOTE | 2018-12-16 07:32 | PN ---
Teaching Attending Note Name of Resident: Gage Louis ATTENDING PHYSICIAN STATEMENT I saw and evaluated the patient. I reviewed the resident's note and discussed the case with the resident. I agree with the resident's findings and plan as documented. 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 Presented with CHF, cough, sputum, weight gain, anemia , neutropenia, azotemia Last Vital Signs Temp Pulse Resp BP Pulse Ox 97.6 F 77 20 139/77 97 12/16/18 06:00 12/16/18 06:00 12/16/18 06:00 12/16/18 06:00 12/15/18 21:00 HEENT: VALERIO, EOM Intact Oropharynx: No thrush, No mucositis Neck: Supple Nodes: Without adenopathy Cor: RSR, No murmurs, No gallops Lungs:decreased breath sounds and few rales at bases Abd: Soft, Normal bowel sounds, No organomegaly,obese Ext:LE edema, stasis, s/p amputation right 4th toe Skin: Integument intact, chronic stasis dermatitis CBC, BMP 12/15/18 05:20 Abnormal Lab Results 12/15/18 12/15/18 12/15/18 05:20 05:20 18:15 Eosinophils % (Manual) 15.0 H D Potassium 5.9 H 5.2 H Chloride 117 H 116 H Carbon Dioxide 18 L 20 L Anion Gap 4 L 5 L BUN 56.7 H 52.8 H Creatinine 2.1 H 1.8 H Random Glucose 127 H 128 H Calcium 7.7 L 8.1 L AST 8 L ALT 11 L Alkaline Phosphatase 148 H B-Natriuretic Peptide 1775.5 H Total Protein 5.9 L Albumin 2.4 L Current Medications Generic Name Dose Route Start Last Admin Trade Name Freq PRN Reason Stop Dose Admin Acetaminophen 650 mg 12/15/18 06:39 12/15/18 07:00 Tylenol - PO 650 mg Q6H PRN Administration PAIN LEVEL 1-5 Allopurinol 300 mg 12/14/18 22:30 12/15/18 22:05 Zyloprim - PO 300 mg HS JENNY Administration Amlodipine Besylate 5 mg 12/15/18 08:00 12/15/18 09:09 Norvasc - PO 5 mg DAILY@0800 JENNY Administration Apixaban 5 mg 12/14/18 22:27 12/15/18 22:05 Eliquis - PO 5 mg BID JENNY Administration Aspirin 81 mg 12/15/18 10:00 12/15/18 09:09 Asa - PO 81 mg DAILY JENNY Administration Atorvastatin Calcium 40 mg 12/14/18 22:00 12/15/18 22:04 Lipitor - PO 40 mg HS JENNY Administration Clopidogrel Bisulfate 75 mg 12/15/18 06:00 12/16/18 06:26 Plavix - PO 75 mg DAILY@0600 JENNY Administration Colchicine 0.6 mg 12/15/18 10:00 12/15/18 09:11 Colcrys PO 0.6 mg DAILY JENNY Administration Cyclosporine 100 mg 12/14/18 22:30 12/15/18 22:04 Sandimmune PO 100 mg HS JENNY Administration Furosemide 40 mg 12/15/18 14:00 12/16/18 06:26 Lasix Injection - IVPUSH 40 mg BID@0600,1400 [facility] Administration Gabapentin 300 mg 12/14/18 22:00 12/16/18 06:26 Neurontin - PO 300 mg TID [facility] Administration Hydralazine HCl 25 mg 12/14/18 22:00 12/16/18 06:26 Apresoline - PO 25 mg TID [facility] Administration Ceftriaxone Sodium 1 gm/ 50 mls @ 100 mls/hr 12/14/18 16:00 12/15/18 09:12 Dextrose IVPB 100 mls/hr DAILY [facility] Administration Protocol Insulin Aspart 1 vial 12/16/18 07:00 12/16/18 06:26 Novolog Vial Sliding Scale - SQ Not Given TIDAC [facility] Protocol Lidocaine 1 patch 12/16/18 10:00 Lidoderm Patch - TP DAILY [facility] Meclizine HCl 12.5 mg 12/15/18 11:00 Antivert - PO DAILY PRN vertigo Miscellaneous 1 each 12/16/18 22:00 Lidoderm Patch Removal MC DAILY@2200 [facility] Sodium Zirconium Cyclosilicate 10 gm 12/15/18 11:00 12/15/18 11:09 Lokelma PO 10 gm DAILY [facility] Administration Tramadol HCl 50 mg 12/15/18 08:37 12/15/18 22:04 Ultram - PO 50 mg Q6H PRN Administration PAIN LEVEL 6-10 Impression: Multiple cor-morbid medical problems as enumerated [id number] Chronic disease with normal serum Fe++ and low TIBC CKD--Creatinine initially -2.6, now 1.8 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 (Procrit or other) Monitor kidney function -- when returns to baseline resume cyclosporine -100 mg daily. OBJECTIVE: ASSESSMENT AND PLAN:
[2018-12-16 07:43] LABS: ALBUMIN 2.4 g/dl (3.4-5.0); BILIRUBIN,TOTAL 0.6 mg/dL (0.2-1); BLOOD UREA NITROGEN 50.1 mg/dL (7-18); CALCIUM 7.8 mg/dL (8.5-10.1); CREATININE 1.7 mg/dL (0.55-1.3); POTASSIUM 5.6 mmol/L (3.5-5.1)
[2018-12-16] MEDS ORDERED: DEXTROSE 5%-WATER - 50 ML IVPB ONE (08:17)
[2018-12-16] MEDS ORDERED: cefTRIAXone SODIUM 1 GM VIAL ONE (08:17)
[2018-12-16] MEDS: amLODIPine BESYLATE 5 MG TABLET (FP) PO SCH (08:21)
--- NOTE | 2018-12-16 08:43 | PN ---
Progress Note, Physician - Current Medication List Current Medications: Active Medications Acetaminophen (Tylenol -) 650 mg PO Q6H PRN PRN Reason: PAIN LEVEL 1-5 Last Admin: 12/15/18 07:00 Dose: 650 mg Allopurinol (Zyloprim -) 300 mg PO [facility] Last Admin: 12/15/18 22:05 Dose: 300 mg Amlodipine Besylate (Norvasc -) 5 mg PO DAILY@0800 [facility] Last Admin: 12/16/18 08:21 Dose: 5 mg Apixaban (Eliquis -) 5 mg PO BID [facility] Last Admin: 12/15/18 22:05 Dose: 5 mg Aspirin (Asa -) 81 mg PO DAILY [facility] Last Admin: 12/15/18 09:09 Dose: 81 mg Atorvastatin Calcium (Lipitor -) 40 mg PO [facility] Last Admin: 12/15/18 22:04 Dose: 40 mg Clopidogrel Bisulfate (Plavix -) 75 mg PO DAILY@0600 [facility] Last Admin: 12/16/18 06:26 Dose: 75 mg Colchicine (Colcrys) 0.6 mg PO DAILY [facility] Last Admin: 12/15/18 09:11 Dose: 0.6 mg Cyclosporine (Sandimmune) 100 mg PO [facility] Last Admin: 12/15/18 22:04 Dose: 100 mg Furosemide (Lasix Injection -) 40 mg IVPUSH BID@0600,1400 [facility] Last Admin: 12/16/18 06:26 Dose: 40 mg Gabapentin (Neurontin -) 300 mg PO TID [facility] Last Admin: 12/16/18 06:26 Dose: 300 mg Hydralazine HCl (Apresoline -) 25 mg PO TID [facility] Last Admin: 12/16/18 06:26 Dose: 25 mg Ceftriaxone Sodium 1 gm/ (Dextrose) 50 mls @ 100 mls/hr IVPB DAILY [facility]; Protocol Last Admin: 12/15/18 09:12 Dose: 100 mls/hr Insulin Aspart (Novolog Vial Sliding Scale -) 1 vial SQ TIDAC [facility]; Protocol Last Admin: 12/16/18 06:26 Dose: Not Given Lidocaine (Lidoderm Patch -) 1 patch TP DAILY [facility] Meclizine HCl (Antivert -) 12.5 mg PO DAILY PRN PRN Reason: vertigo Miscellaneous (Lidoderm Patch Removal) 1 each MC DAILY@2200 [facility] Sodium Zirconium Cyclosilicate (Lokelma) 10 gm PO DAILY [facility] Last Admin: 12/15/18 11:09 Dose: 10 gm Tramadol HCl (Ultram -) 50 mg PO Q6H PRN PRN Reason: PAIN LEVEL 6-10 Last Admin: 12/15/18 22:04 Dose: 50 mg - Objective Vital Signs: Vital Signs Temperature 97.6 F 12/16/18 06:00 Pulse Rate 77 12/16/18 06:00 Respiratory Rate 20 12/16/18 08:10 Blood Pressure 139/77 12/16/18 06:00 O2 Sat by Pulse Oximetry (%) 99 12/16/18 08:10 Cardiovascular: Yes: S1, S2 Respiratory: Yes: Regular, CTA Bilaterally Gastrointestinal: Yes: Normal Bowel Sounds, Soft Labs: CBC, BMP 12/15/18 05:20 12/16/18 05:25 INR, PTT INR 1.50 (0.83-1.09) H 12/14/18 15:04 Problem List - Problems (1) Radiculopathy Assessment/Plan: -Left leg pain -emg-ct scan -pt consult -gabapentin add tramadol Code(s): M54.10 - RADICULOPATHY, SITE UNSPECIFIED Qualifiers: Spinal region: lumbosacral Qualified Code(s): M54.17 - Radiculopathy, lumbosacral region (2) Anemia Assessment/Plan: -per hem -consult dr perez Code(s): D64.9 - ANEMIA, UNSPECIFIED Qualifiers: Anemia type: iron deficiency Iron deficiency anemia type: unspecified iron deficiency Qualified Code(s): D50.9 - Iron deficiency anemia, unspecified (3) CHF (congestive heart failure) Assessment/Plan: iv lasix resume meds cardio Code(s): I50.9 - HEART FAILURE, UNSPECIFIED Qualifiers: Heart failure type: unspecified Heart failure chronicity: acute on chronic Qualified Code(s): I50.9 - Heart failure, unspecified (4) Afib Assessment/Plan: - eliquis bid no av jaja agents bc of bradycardia on last admission Code(s): I48.91 - UNSPECIFIED ATRIAL FIBRILLATION Qualifiers: Atrial fibrillation type: unspecified Qualified Code(s): I48.91 - Unspecified atrial fibrillation (5) Diabetes mellitus, insulin dependent (IDDM), uncontrolled Assessment/Plan: bgm endo Code(s): E10.65 - TYPE 1 DIABETES MELLITUS WITH HYPERGLYCEMIA (6) HTN (hypertension) Assessment/Plan: Vital Signs Period Temp Pulse Resp BP Sys/Reddy Pulse Ox Last 24 Hr 97.3 F-98.4 F 60-79 16-24 145-160/49-89 98-98 Code(s): I10 - ESSENTIAL (PRIMARY) HYPERTENSION (7) Large granular lymphocytosis Code(s): D72.820 - LYMPHOCYTOSIS (SYMPTOMATIC) (8) Morbid obesity with BMI of 50.0-59.9, adult Code(s): E66.01 - MORBID (SEVERE) OBESITY DUE TO EXCESS CALORIES; Z68.43 - BODY MASS INDEX (BMI) 50.0-59.9, ADULT (9) Cellulitis Assessment/Plan: on rocephin venous stasis changes id Code(s): L03.90 - CELLULITIS, UNSPECIFIED
[2018-12-16] MEDS: LIDOCAINE 5% TOPICAL PATCH TP SCH (09:11)
[2018-12-16] MEDS: APIXABAN 5 MG TABLET PO SCH ×2 (09:12→22:43)
[2018-12-16] MEDS: ASPIRIN 81 MG CHEWABLE TABLETS PO SCH (09:12)
[2018-12-16] MEDS: COLCHICINE 0.6 MG CAP PO SCH (09:12)
[2018-12-16] MEDS: CEFTRIAXONE 1 GM in DEXTROSE 5%-WATER - 50 ML IVPB SCH (09:17)
[2018-12-16] MEDS ORDERED: PT OWN MED DRAWER 7, Y5N ONE (10:35)
[2018-12-16] MEDS: SODIUM ZIRCONIUM CYCLOSILICATE (LOKELMA) 5 GM PACKET PO SCH ×2 (10:38→22:43)
--- NOTE | 2018-12-16 10:51 | PN ---
Progress Note (short form) - Note Progress Note: s: sob improving, still has cough. no chest pain, palps, dizziness. edema miproving. Current Medications Acetaminophen (Tylenol -) 650 mg PO Q6H PRN PRN Reason: PAIN LEVEL 1-5 Last Admin: 12/15/18 07:00 Dose: 650 mg Allopurinol (Zyloprim -) 300 mg PO HS [facility] Last Admin: 12/15/18 22:05 Dose: 300 mg Amlodipine Besylate (Norvasc -) 5 mg PO DAILY@0800 [facility] Last Admin: 12/16/18 08:21 Dose: 5 mg Apixaban (Eliquis -) 5 mg PO BID [facility] Last Admin: 12/16/18 09:12 Dose: 5 mg Aspirin (Asa -) 81 mg PO DAILY [facility] Last Admin: 12/16/18 09:12 Dose: 81 mg Atorvastatin Calcium (Lipitor -) 40 mg PO HS [facility] Last Admin: 12/15/18 22:04 Dose: 40 mg Clopidogrel Bisulfate (Plavix -) 75 mg PO DAILY@0600 [facility] Last Admin: 12/16/18 06:26 Dose: 75 mg Colchicine (Colcrys) 0.6 mg PO DAILY [facility] Last Admin: 12/16/18 09:12 Dose: 0.6 mg Cyclosporine (Sandimmune) 100 mg PO HS [facility] Last Admin: 12/15/18 22:04 Dose: 100 mg Furosemide (Lasix Injection -) 40 mg IVPUSH BID@0600,1400 [facility] Last Admin: 12/16/18 06:26 Dose: 40 mg Gabapentin (Neurontin -) 300 mg PO TID [facility] Last Admin: 12/16/18 06:26 Dose: 300 mg Hydralazine HCl (Apresoline -) 25 mg PO TID [facility] Last Admin: 12/16/18 06:26 Dose: 25 mg Ceftriaxone Sodium 1 gm/ (Dextrose) 50 mls @ 100 mls/hr IVPB DAILY [facility]; Protocol Last Admin: 12/16/18 09:17 Dose: 100 mls/hr Insulin Aspart (Novolog Vial Sliding Scale -) 1 vial SQ TIDAC [facility]; Protocol Last Admin: 12/16/18 06:26 Dose: Not Given Lidocaine (Lidoderm Patch -) 1 patch TP DAILY [facility] Last Admin: 12/16/18 09:11 Dose: 1 patch Meclizine HCl (Antivert -) 12.5 mg PO DAILY PRN PRN Reason: vertigo Miscellaneous (Lidoderm Patch Removal) 1 each MC DAILY@2200 [facility] Sodium Zirconium Cyclosilicate (Lokelma) 10 gm PO DAILY [facility] Last Admin: 12/16/18 10:38 Dose: 10 gm Tramadol HCl (Ultram -) 50 mg PO Q6H PRN PRN Reason: PAIN LEVEL 6-10 Last Admin: 12/15/18 22:04 Dose: 50 mg Vital Signs Period Temp Pulse Resp BP Sys/Reddy Pulse Ox Last 24 Hr 97.6 F-98.7 F 68-78 16-20 137-176/55-77 97-99 Constitutional: Yes: No Distress Eyes: Yes: Conjunctiva Clear Respiratory: Yes: CTA Bilaterally Gastrointestinal: Yes: Soft, Abdomen, Obese Cardiovascular: Yes: Pulse Irregular JVD: No Carotid Bruit: No Heart Sounds: Yes: S1, S2 (irreg) Edema: Yes Edema: LLE: 1+, RLE: 1+ Neurological: Yes: Alert, Oriented CXR: no congestion NSR, 1st degree AVB, APCs, Peaked T waves tele: sinus Assessment/Plan Shortness of breath, cough, acute on chronic diastolic HF - improving with lasix - cont lasix 40 mg IV BID, monitor Cr, lytes, daily weights atrial fibrillation - cont eliquis - no bb for history of bradycardia CAD s/p recent PCI - cont aspirin, plavix - not on bb due to bradycardia ZHANG on CKD - improving after lasix - renal consulted DM - manage per primary HTN - cont hydralazine, amlodipine anemia - manage per heme
--- NOTE | 2018-12-16 13:09 | PN ---
Progress Note, Physician History of Present Illness: Pt seen and examined at bedside. He is awake and alert. He feels that his edema is improving. - Current Medication List Current Medications: Active Medications Acetaminophen (Tylenol -) 650 mg PO Q6H PRN PRN Reason: PAIN LEVEL 1-5 Last Admin: 12/15/18 07:00 Dose: 650 mg Allopurinol (Zyloprim -) 300 mg PO [facility] Last Admin: 12/15/18 22:05 Dose: 300 mg Amlodipine Besylate (Norvasc -) 5 mg PO DAILY@0800 [facility] Last Admin: 12/16/18 08:21 Dose: 5 mg Apixaban (Eliquis -) 5 mg PO BID [facility] Last Admin: 12/16/18 09:12 Dose: 5 mg Aspirin (Asa -) 81 mg PO DAILY [facility] Last Admin: 12/16/18 09:12 Dose: 81 mg Atorvastatin Calcium (Lipitor -) 40 mg PO [facility] Last Admin: 12/15/18 22:04 Dose: 40 mg Clopidogrel Bisulfate (Plavix -) 75 mg PO DAILY@0600 [facility] Last Admin: 12/16/18 06:26 Dose: 75 mg Colchicine (Colcrys) 0.6 mg PO DAILY [facility] Last Admin: 12/16/18 09:12 Dose: 0.6 mg Cyclosporine (Sandimmune) 100 mg PO [facility] Last Admin: 12/15/18 22:04 Dose: 100 mg Furosemide (Lasix Injection -) 40 mg IVPUSH BID@0600,1400 [facility] Last Admin: 12/16/18 06:26 Dose: 40 mg Gabapentin (Neurontin -) 300 mg PO TID [facility] Last Admin: 12/16/18 06:26 Dose: 300 mg Hydralazine HCl (Apresoline -) 25 mg PO TID [facility] Last Admin: 12/16/18 06:26 Dose: 25 mg Ceftriaxone Sodium 1 gm/ (Dextrose) 50 mls @ 100 mls/hr IVPB DAILY [facility]; Protocol Last Admin: 12/16/18 09:17 Dose: 100 mls/hr Insulin Aspart (Novolog Vial Sliding Scale -) 1 vial SQ TIDAC [facility]; Protocol Last Admin: 12/16/18 06:26 Dose: Not Given Lidocaine (Lidoderm Patch -) 1 patch TP DAILY [facility] Last Admin: 12/16/18 09:11 Dose: 1 patch Meclizine HCl (Antivert -) 12.5 mg PO DAILY PRN PRN Reason: vertigo Miscellaneous (Lidoderm Patch Removal) 1 each MC DAILY@2200 [facility] Sodium Zirconium Cyclosilicate (Lokelma) 10 gm PO DAILY [facility] Last Admin: 12/16/18 10:38 Dose: 10 gm Tramadol HCl (Ultram -) 50 mg PO Q6H PRN PRN Reason: PAIN LEVEL 6-10 Last Admin: 12/15/18 22:04 Dose: 50 mg - Objective Vital Signs: Vital Signs Temperature 97.9 F 12/16/18 09:15 Pulse Rate 76 12/16/18 09:15 Respiratory Rate 20 12/16/18 09:15 Blood Pressure 166/71 12/16/18 09:15 O2 Sat by Pulse Oximetry (%) 99 12/16/18 08:10 Constitutional: Yes: Calm Eyes: Yes: Conjunctiva Clear HENT: Yes: Atraumatic Cardiovascular: Yes: S1, S2 Respiratory: Yes: CTA Bilaterally Gastrointestinal: Yes: Soft, Abdomen, Obese Genitourinary: Yes: WNL Edema: Yes Edema: LLE: 1+, RLE: 1+ Integumentary: Yes: Venous Stasis Changes Neurological: Yes: Oriented Psychiatric: Yes: Oriented Labs: CBC, BMP 12/15/18 05:20 12/16/18 05:25 INR, PTT INR 1.50 (0.83-1.09) H 12/14/18 15:04 Assessment/Plan Current Medications Generic Name Dose Route Start Last Admin Trade Name Freq PRN Reason Stop Dose Admin Acetaminophen 650 mg 12/15/18 06:39 12/15/18 07:00 Tylenol - PO 650 mg Q6H PRN Administration PAIN LEVEL 1-5 Allopurinol 300 mg 12/14/18 22:30 12/15/18 22:05 Zyloprim - PO 300 mg HS JENNY Administration Amlodipine Besylate 5 mg 12/15/18 08:00 12/16/18 08:21 Norvasc - PO 5 mg DAILY@0800 [facility] Administration Apixaban 5 mg 12/14/18 22:27 12/16/18 09:12 Eliquis - PO 5 mg BID JENNY Administration Aspirin 81 mg 12/15/18 10:00 12/16/18 09:12 Asa - PO 81 mg DAILY JENNY Administration Atorvastatin Calcium 40 mg 12/14/18 22:00 12/15/18 22:04 Lipitor - PO 40 mg HS JENNY Administration Clopidogrel Bisulfate 75 mg 12/15/18 06:00 12/16/18 06:26 Plavix - PO 75 mg DAILY@0600 [facility] Administration Colchicine 0.6 mg 12/15/18 10:00 12/16/18 09:12 Colcrys PO 0.6 mg DAILY JENNY Administration Cyclosporine 100 mg 12/14/18 22:30 12/15/18 22:04 Sandimmune PO 100 mg HS JENNY Administration Furosemide 40 mg 12/15/18 14:00 12/16/18 06:26 Lasix Injection - IVPUSH 40 mg BID@0600,1400 [facility] Administration Gabapentin 300 mg 12/14/18 22:00 12/16/18 06:26 Neurontin - PO 300 mg TID JENNY Administration Hydralazine HCl 25 mg 12/14/18 22:00 12/16/18 06:26 Apresoline - PO 25 mg TID JENNY Administration Ceftriaxone Sodium 1 gm/ 50 mls @ 100 mls/hr 12/14/18 16:00 12/16/18 09:17 Dextrose IVPB 100 mls/hr DAILY JENNY Administration Protocol Insulin Aspart 1 vial 12/16/18 07:00 12/16/18 06:26 Novolog Vial Sliding Scale - SQ Not Given TIDAC [facility] Protocol Lidocaine 1 patch 12/16/18 10:00 12/16/18 09:11 Lidoderm Patch - TP 1 patch DAILY [facility] Administration Meclizine HCl 12.5 mg 12/15/18 11:00 Antivert - PO DAILY PRN vertigo Miscellaneous 1 each 12/16/18 22:00 Lidoderm Patch Removal MC DAILY@2200 [facility] Sodium Zirconium Cyclosilicate 10 gm 12/15/18 11:00 12/16/18 10:38 Lokelma PO 10 gm DAILY [facility] Administration Tramadol HCl 50 mg 12/15/18 08:37 12/15/18 22:04 Ultram - PO 50 mg Q6H PRN Administration PAIN LEVEL 6-10 Impression 1. CKD 2. ZHANG 3. s/p cardiac stent 4. morbid obesity 5. DM 6. PVD 7. Gout 8. Large cell granular leukemia/lymphoma 9. anemia 10. hyperkalemia Plan - renal function is improved - low potassium diet - arb on hold - cont lokelma, will increase to BID - arb on hold for now - monitor weights
--- NOTE | 2018-12-16 18:21 | PN ---
Progress Note (short form) - Note Progress Note: ID consult dictated imp/reccd cellulitis RLE bilateral venous stasis CHF-improving gopal on ckd improving cad- s/p stent large cell granular lymphocytosis leukemia continue ceftriaxone reports improvement can switch to keflex when ready for discharge please call back if needed Problem List - Problems (1) Cellulitis Code(s): L03.90 - CELLULITIS, UNSPECIFIED (2) Chronic venous stasis Code(s): I87.8 - OTHER SPECIFIED DISORDERS OF VEINS (3) CHF (congestive heart failure) Code(s): I50.9 - HEART FAILURE, UNSPECIFIED Qualifiers: Heart failure type: unspecified Heart failure chronicity: acute on chronic Qualified Code(s): I50.9 - Heart failure, unspecified (4) Acute kidney injury superimposed on CKD Code(s): N17.9 - ACUTE KIDNEY FAILURE, UNSPECIFIED; N18.9 - CHRONIC KIDNEY DISEASE, UNSPECIFIED (5) CAD (coronary artery disease) Code(s): I25.10 - ATHSCL HEART DISEASE OF [place] CORONARY ARTERY W/O ANG PCTRS (6) T-cell large granular lymphocytic leukemia Code(s): C91.Z0 - OTHER LYMPHOID LEUKEMIA NOT HAVING ACHIEVED REMISSION
[2018-12-16] MEDS: oxyCODONE HCL 5 MG TABLET PO PRN (19:47)
--- NOTE | 2018-12-16 20:02 | PN ---
Physical Exam: SUBJECTIVE: Patient seen and examined OBJECTIVE: Vital Signs Period Temp Pulse Resp BP Sys/Reddy Pulse Ox Last 24 Hr 97.6 F-98.4 F 68-78 18-20 137-176/45-77 97-99 GENERAL: The patient is awake, alert, and fully oriented, in no acute distress. HEAD: Normal with no signs of trauma. EYES: extraocular movements intact, sclera anicteric, conjunctiva clear. No ptosis. ENT: nares patent, oropharynx clear without exudates, moist mucous membranes. NECK: Trachea midline, full range of motion, supple. LUNGS: Breath sounds equal, clear to auscultation bilaterally, no wheezes, no crackles, no accessory muscle use. HEART: Regular rate and rhythm, S1, S2 without murmur, rub or gallop. ABDOMEN: Soft, nontender, nondistended, normoactive bowel sounds, no guarding, no rebound, no hepatosplenomegaly, no masses. EXTREMITIES: 2+ pulses, warm, well-perfused, no edema. Laboratory Results - last 24 hr 12/15/18 12/16/18 12/16/18 22:07 05:25 06:21 Sodium 141 Potassium 5.6 H Chloride 118 H Carbon Dioxide 20 L Anion Gap 3 L BUN 50.1 H Creatinine 1.7 H Est GFR (CKD-EPI)AfAm 49.00 Est GFR (CKD-EPI)NonAf 42.28 POC Glucometer 129 108 Random Glucose 111 H Calcium 7.8 L Total Bilirubin 0.6 AST 11 L ALT 11 L Alkaline Phosphatase 144 H Total Protein 6.0 L Albumin 2.4 L 12/16/18 12/16/18 11:15 16:47 Sodium Potassium Chloride Carbon Dioxide Anion Gap BUN Creatinine Est GFR (CKD-EPI)AfAm Est GFR (CKD-EPI)NonAf POC Glucometer 135 112 Random Glucose Calcium Total Bilirubin AST ALT Alkaline Phosphatase Total Protein Albumin Active Medications Generic Name Dose Route Start Last Admin Trade Name Freq PRN Reason Stop Dose Admin Acetaminophen 650 mg 12/15/18 06:39 12/15/18 07:00 Tylenol - PO 650 mg Q6H PRN Administration PAIN LEVEL 1-5 Allopurinol 300 mg 12/14/18 22:30 12/15/18 22:05 Zyloprim - PO 300 mg HS JENNY Administration Amlodipine Besylate 5 mg 12/15/18 08:00 12/16/18 08:21 Norvasc - PO 5 mg DAILY@0800 [facility]ENNY Administration Apixaban 5 mg 12/14/18 22:27 12/16/18 09:12 Eliquis - PO 5 mg BID JENNY Administration Aspirin 81 mg 12/15/18 10:00 12/16/18 09:12 Asa - PO 81 mg DAILY JENNY Administration Atorvastatin Calcium 40 mg 12/14/18 22:00 12/15/18 22:04 Lipitor - PO 40 mg HS JENNY Administration Clopidogrel Bisulfate 75 mg 12/15/18 06:00 12/16/18 06:26 Plavix - PO 75 mg DAILY@0600 [facility]ENNY Administration Colchicine 0.6 mg 12/15/18 10:00 12/16/18 09:12 Colcrys PO 0.6 mg DAILY JENNY Administration Cyclosporine 100 mg 12/14/18 22:30 12/15/18 22:04 Sandimmune PO 100 mg HS JENNY Administration Furosemide 40 mg 12/15/18 14:00 12/16/18 13:49 Lasix Injection - IVPUSH 40 mg BID@0600,1400 [facility] Administration Gabapentin 400 mg 12/16/18 22:00 Neurontin - PO TID JENNY Hydralazine HCl 25 mg 12/14/18 22:00 12/16/18 13:50 Apresoline - PO 25 mg TID [facility] Administration Ceftriaxone Sodium 1 gm/ 50 mls @ 100 mls/hr 12/14/18 16:00 12/16/18 09:17 Dextrose IVPB 100 mls/hr DAILY JENNY Administration Protocol Insulin Aspart 1 vial 12/16/18 07:00 12/16/18 18:57 Novolog Vial Sliding Scale - SQ Not Given TIDAC [facility] Protocol Lidocaine 1 patch 12/16/18 10:00 12/16/18 09:11 Lidoderm Patch - TP 1 patch DAILY [facility]ENNY Administration Meclizine HCl 12.5 mg 12/15/18 11:00 Antivert - PO DAILY PRN vertigo Miscellaneous 1 each 12/16/18 22:00 Lidoderm Patch Removal MC DAILY@2200 [facility] Oxycodone HCl 5 mg 12/16/18 17:03 12/16/18 19:47 Roxicodone - PO 5 mg Q6H PRN Administration PAIN LEVEL 6-10 Promethazine HCl/Dextromethorphan 5 ml 12/16/18 19:32 Phenergan-Dm Syrup - PO 12/18/18 23:59 Q6H PRN COUGH Sodium Zirconium Cyclosilicate 10 gm 12/16/18 22:00 Lokelma PO BID JENNY ASSESSMENT/PLAN: Pt is a 63 y/o M with PMH Large Cell Granular Lymphocytosis, AFIB, CAD (with stents), CHF, HTN, Hyperlipdemia, GERD, Renal Inusuff, Anemia, DM, 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 He presented to the ED sent by PCP for complaint of SOB and weight gain. #? URI vs atypical PNA vs CHF exacerbation -2-3 weeks of cough with yellow sputum, SOB - with PNA during the same period -CXR unremarkable. ? CT chest -Urine Ag #Normocytic Normochromic Anemia -Hb 8.8, near baseline over several months -RDW 18 -Retic count 2.3, Retic Index 0.7% -> inadequate BM response -Fe 58, TIBC 231, Sat 25, Ferritin 142 suggestive of mixed inflammatory and Fe- deficient anemia -Receiving IV Ferric Carboxymaltose -Possible etiologies/contributions include anemia of chronic disease/ inflammatory anemia, hematological disorder (Large Cell Granular Lymphocytosis) , and Renal disease. Considering renal function, pt may be a candidate for erythropoietin stimulating agent #Large T Cell Granular Lymphocytosis leukemia -Peripheral and BM involvement -cyclosporine Visit type - Emergency Visit Emergency Visit: No - New Patient This patient is new to me today: No - Critical Care Critical Care patient: No ATTENDING PHYSICIAN STATEMENT I saw and evaluated the patient. I reviewed the resident's note and discussed the case with the resident. I agree with the resident's findings and plan as documented. SUBJECTIVE: OBJECTIVE: ASSESSMENT AND PLAN:
--- NOTE | 2018-12-16 20:26 | CONS ---
DATE OF CONSULTATION: DATE OF CONSULTATION: 12/16/2018 CONSULTATION REQUESTED BY: Diomedes Neil MD HISTORY OF PRESENT ILLNESS: The patient is a 63-year-old man recently hospitalized from November 13 to November 17. He had had a stent placed at [facility]. He presented with decreased urination and was found to have a creatinine of 6. He had been taking furosemide throughout the week. He was treated for renal failure with resolution and was discharged home. He was seen by his primary doctor and readmitted on December 14, 2018, when he again presented with a weight gain of 12 pounds in 6 days. He also had increased leg swelling. He was complaining of shortness of breath and cough. He was again found to have an acute kidney injury with a creatinine of 2.6. I am asked to see him for possible cellulitis. He denies any fever or chills. He notes his chronic cough. Of note, he has a history of large cell granular lymphocytosis and is on chronic cyclosporine. He has a history of anemia as well. PAST MEDICAL HISTORY: In addition to his large cell granular lymphocytosis, his medical history is notable for atrial fibrillation, coronary artery disease recently stented, CHF, hypertension, hyperlipidemia, GERD, renal insufficiency with recent acute renal failure, anemia, diabetes, osteomyelitis. PAST SURGICAL HISTORY: He has had amputation of a toe on his left foot and part of his big toe. SOCIAL HISTORY: He is . He lives with his . No history of cigarette or alcohol use. There is no history of recent travel. ALLERGIES: TUNA OIL. HOME MEDICATIONS: Plavix, gabapentin, Eliquis, colchicine, allopurinol, cyclosporine, Trulicity, gabapentin, amlodipine, aspirin, atorvastatin, senna, torsemide and hydralazine. REVIEW OF SYSTEMS: Notable for his cough. He has chronic venous stasis as well. He has had no diarrhea and his appetite is good. He has back pain which he attributes to the stretcher in the emergency room. PHYSICAL EXAMINATION: General: He is an obese man in no acute distress. Vital Signs: Temperature is 98. He has had no fever since admission. Pulse is 77, blood pressure is 152/74, respiratory rate 18. HEENT: Normocephalic. His eyes are anicteric. Neck: Supple. Lungs: There are bibasilar crackles. Heart: Regular rate and rhythm. Abdomen: Soft, very protuberant. I cannot palpate any organomegaly due to his size. Extremities: Notable for venous stasis in both legs with some erythema of the right lower leg. LABORATORY DATA: White count of 2.5. Hemoglobin is 8/8, platelets are 192. His ANC is 1.3. His BUN and creatinine are 50 and 1.7. Urinalysis is negative for leukocyte esterase and his cultures are negative. A chest x-ray done on admission shows clear lungs. A duplex shows no DVT of either leg. In summary, this is a 63-year-old man admitted for volume overload and heart failure, which is improving with Lasix. I think his cough is related to his heart failure. He has a history of atrial fibrillation as well. His acute kidney injury is improving with diuretic therapy. He has what appears to be a mild cellulitis of the right lower extremity. He is currently on ceftriaxone. His reports improvement. Would continue and switch him to Keflex at the time of discharge. He has a history of anemia which appears to be chronic as well as large cell granular leukocytosis leukemia, for which he is on chronic cyclosporine. SUZETTE LAURA M.D. [id number]
[2018-12-16] MEDS: ATORVASTATIN CA 40 MG TABLET (FP) PO SCH (22:43)
[2018-12-16] MEDS: GABAPENTIN 400 MG CAPSULE (FP) PO SCH (22:43)
[2018-12-16] MEDS: ALLOPURINOL 300 MG TABLET (FP) PO SCH (22:44)
[2018-12-16] MEDS: DEXTROMETHORPHAN/PROMETHAZINE 15 MG/6.25 MG/5 ML SYRUP PO PRN (22:44)
[2018-12-16] MEDS: LIDOCAINE PATCH REMOVAL MC SCH (23:01)
[2018-12-17] MEDS: CLOPIDOGREL BISULFATE 75 MG TABLET (FP) PO SCH (06:58)
[2018-12-17] MEDS: FUROSEMIDE 40 MG/4 ML INJECTABLE VIAL IVPUSH SCH ×2 (06:59→13:20)
[2018-12-17] MEDS: INSULIN SLIDING SCALE (NOVOLOG) 1 VIAL SQ SCH ×3 (06:59→17:49)
[2018-12-17] MEDS: GABAPENTIN 400 MG CAPSULE (FP) PO SCH ×3 (06:59→22:45)
[2018-12-17] MEDS: hydrALAZINE HCL 25 MG TABLET (FP) PO SCH ×3 (06:59→22:45)
[2018-12-17 07:37] LABS: EOS % 5.2 % (0-4.5); HEMATOCRIT 28.1 % (35.4-49); HEMOGLOBIN 9.1 GM/dL (11.7-16.9); LYMPH % 30.2 % (8-40); MCH 27.7 pg (25.7-33.7); MCHC 32.3 g/dl (32.0-35.9); MEAN CELL VOLUME 85.6 fl (80-96); MEAN PLT VOLUME 9.1 fl (7.5-11.1); MONO % 17.9 % (3.8-10.2); NEUT % 45.7 % (42.8-82.8); PLATELET COUNT 226 K/MM3 (134-434); RBC 3.29 M/mm3 (4.00-5.60); RDW 18.6 % (11.9-15.9); WHITE BLOOD COUNT 5.1 K/mm3 (4.0-10.0)
[2018-12-17 08:18] LABS: ALBUMIN 2.5 g/dl (3.4-5.0); BILIRUBIN,TOTAL 0.6 mg/dL (0.2-1); BLOOD UREA NITROGEN 50.1 mg/dL (7-18); CALCIUM 7.9 mg/dL (8.5-10.1); CREATININE 1.7 mg/dL (0.55-1.3); POTASSIUM 4.9 mmol/L (3.5-5.1); TOT PROT 6.2 g/dl (6.4-8.2)
[2018-12-17] MEDS: amLODIPine BESYLATE 5 MG TABLET (FP) PO SCH (09:00)
[2018-12-17] MEDS ORDERED: DEXTROSE 5%-WATER - 50 ML IVPB ONE (10:37)
[2018-12-17] MEDS ORDERED: cefTRIAXone SODIUM 1 GM VIAL ONE (10:37)
[2018-12-17] MEDS: COLCHICINE 0.6 MG CAP PO SCH (11:00)
[2018-12-17] MEDS: CEFTRIAXONE 1 GM in DEXTROSE 5%-WATER - 50 ML IVPB SCH (11:00)
[2018-12-17] MEDS: APIXABAN 5 MG TABLET PO SCH ×2 (11:01→22:45)
[2018-12-17] MEDS: ASPIRIN 81 MG CHEWABLE TABLETS PO SCH (11:01)
[2018-12-17] MEDS: SODIUM ZIRCONIUM CYCLOSILICATE (LOKELMA) 5 GM PACKET PO SCH ×2 (11:01→22:44)
[2018-12-17] MEDS: LIDOCAINE 5% TOPICAL PATCH TP SCH (11:02)
[2018-12-17] MEDS: oxyCODONE HCL 5 MG TABLET PO PRN ×2 (11:02→18:22)
--- NOTE | 2018-12-17 11:10 | PN ---
Progress Note (short form) - Note Progress Note: s: no chest pain, sob, palps, dizziness. has back pain now Current Medications Generic Name Dose Route Start Last Admin Trade Name Lisbeth PRN Reason Stop Dose Admin Acetaminophen 650 mg 12/15/18 06:39 12/15/18 07:00 Tylenol - PO 650 mg Q6H PRN Administration PAIN LEVEL 1-5 Allopurinol 300 mg 12/14/18 22:30 12/16/18 22:44 Zyloprim - PO 300 mg HS JENNY Administration Amlodipine Besylate 5 mg 12/15/18 08:00 12/17/18 09:00 Norvasc - PO 5 mg DAILY@0800 [facility]NY Administration Apixaban 5 mg 12/14/18 22:27 12/17/18 11:01 Eliquis - PO 5 mg BID JENNY Administration Aspirin 81 mg 12/15/18 10:00 12/17/18 11:01 Asa - PO 81 mg DAILY JENNY Administration Atorvastatin Calcium 40 mg 12/14/18 22:00 12/16/18 22:43 Lipitor - PO 40 mg HS JENNY Administration Clopidogrel Bisulfate 75 mg 12/15/18 06:00 12/17/18 06:58 Plavix - PO 75 mg DAILY@0600 [facility] Administration Colchicine 0.6 mg 12/15/18 10:00 12/17/18 11:00 Colcrys PO 0.6 mg DAILY JENNY Administration Cyclosporine 100 mg 12/14/18 22:30 12/16/18 22:44 Sandimmune PO 100 mg HS JENNY Administration Furosemide 40 mg 12/15/18 14:00 12/17/18 06:59 Lasix Injection - IVPUSH 12/17/18 23:00 40 mg BID@0600,1400 [facility] Administration Gabapentin 400 mg 12/16/18 22:00 12/17/18 06:59 Neurontin - PO 400 mg TID JENNY Administration Hydralazine HCl 25 mg 12/14/18 22:00 12/17/18 06:59 Apresoline - PO 25 mg TID JENNY Administration Ceftriaxone Sodium 1 gm/ 50 mls @ 100 mls/hr 12/14/18 16:00 12/17/18 11:00 Dextrose IVPB 100 mls/hr DAILY JENNY Administration Protocol Insulin Aspart 1 vial 12/16/18 07:00 12/17/18 06:59 Novolog Vial Sliding Scale - SQ Not Given TIDAC JENNY Protocol Lidocaine 1 patch 12/16/18 10:00 12/17/18 11:02 Lidoderm Patch - TP 1 patch DAILY [facility]NY Administration Meclizine HCl 12.5 mg 12/15/18 11:00 Antivert - PO DAILY PRN vertigo Miscellaneous 1 each 12/16/18 22:00 12/16/18 23:01 Lidoderm Patch Removal MC 1 each DAILY@2200 JENNY Administration Oxycodone HCl 5 mg 12/16/18 17:03 12/17/18 11:02 Roxicodone - PO 5 mg Q6H PRN Administration PAIN LEVEL 6-10 Promethazine HCl/Dextromethorphan 5 ml 12/16/18 19:32 12/16/18 22:44 Phenergan-Dm Syrup - PO 12/18/18 23:59 5 ml Q6H PRN Administration COUGH Sodium Zirconium Cyclosilicate 10 gm 12/16/18 22:00 12/17/18 11:01 Lokelma PO 10 gm BID JENNY Administration Torsemide 50 mg 12/18/18 10:00 Demadex - PO DAILY JENNY Vital Signs Period Temp Pulse Resp BP Sys/Reddy Pulse Ox Last 24 Hr 98 F-98.6 F 73-94 18-20 136-158/45-74 95 Constitutional: Yes: No Distress Eyes: Yes: Conjunctiva Clear Respiratory: Yes: CTA Bilaterally Gastrointestinal: Yes: Soft, Abdomen, Obese Cardiovascular: Yes: Pulse Irregular JVD: No Carotid Bruit: No Heart Sounds: Yes: S1, S2 (irreg) Edema: trace bl Neurological: Yes: Alert, Oriented CBC, BMP 12/17/18 05:40 12/17/18 05:40 CXR: no congestion NSR, 1st degree AVB, APCs, Peaked T waves tele: sinus Assessment/Plan Shortness of breath, cough, acute on chronic diastolic HF - improving with iv lasix, will change to po torsemide tomorrow - monitor Cr, lytes, daily weights atrial fibrillation - cont eliquis - no bb for history of bradycardia CAD s/p recent PCI - cont aspirin, plavix - not on bb due to bradycardia ZHANG on CKD - improving after lasix - renal consulted DM - manage per primary HTN - cont hydralazine, amlodipine anemia - manage per heme
--- NOTE | 2018-12-17 15:37 | PN ---
Progress Note, Physician Chief Complaint: patient seen and examined complaining of inability to raise his legs and get out of bed - Current Medication List Current Medications: Active Medications Acetaminophen (Tylenol -) 650 mg PO Q6H PRN PRN Reason: PAIN LEVEL 1-5 Last Admin: 12/15/18 07:00 Dose: 650 mg Allopurinol (Zyloprim -) 300 mg PO [facility] Last Admin: 12/16/18 22:44 Dose: 300 mg Amlodipine Besylate (Norvasc -) 5 mg PO DAILY@0800 [facility] Last Admin: 12/17/18 09:00 Dose: 5 mg Apixaban (Eliquis -) 5 mg PO BID [facility] Last Admin: 12/17/18 11:01 Dose: 5 mg Aspirin (Asa -) 81 mg PO DAILY [facility] Last Admin: 12/17/18 11:01 Dose: 81 mg Atorvastatin Calcium (Lipitor -) 40 mg PO [facility] Last Admin: 12/16/18 22:43 Dose: 40 mg Clopidogrel Bisulfate (Plavix -) 75 mg PO DAILY@0600 [facility] Last Admin: 12/17/18 06:58 Dose: 75 mg Colchicine (Colcrys) 0.6 mg PO DAILY [facility] Last Admin: 12/17/18 11:00 Dose: 0.6 mg Cyclosporine (Sandimmune) 100 mg PO [facility] Last Admin: 12/16/18 22:44 Dose: 100 mg Furosemide (Lasix Injection -) 40 mg IVPUSH BID@0600,1400 [facility] Stop: 12/17/18 23:00 Last Admin: 12/17/18 13:20 Dose: 40 mg Gabapentin (Neurontin -) 400 mg PO TID [facility] Last Admin: 12/17/18 13:20 Dose: 400 mg Hydralazine HCl (Apresoline -) 25 mg PO TID [facility] Last Admin: 12/17/18 13:20 Dose: 25 mg Ceftriaxone Sodium 1 gm/ (Dextrose) 50 mls @ 100 mls/hr IVPB DAILY [facility]; Protocol Last Admin: 12/17/18 11:00 Dose: 100 mls/hr Insulin Aspart (Novolog Vial Sliding Scale -) 1 vial SQ TIDAC [facility]; Protocol Last Admin: 12/17/18 11:26 Dose: Not Given Lidocaine (Lidoderm Patch -) 1 patch TP DAILY [facility] Last Admin: 12/17/18 11:02 Dose: 1 patch Meclizine HCl (Antivert -) 12.5 mg PO DAILY PRN PRN Reason: vertigo Miscellaneous (Lidoderm Patch Removal) 1 each MC DAILY@2200 [facility] Last Admin: 12/16/18 23:01 Dose: 1 each Oxycodone HCl (Roxicodone -) 5 mg PO Q6H PRN PRN Reason: PAIN LEVEL 6-10 Last Admin: 12/17/18 11:02 Dose: 5 mg Promethazine HCl/Dextromethorphan (Phenergan-Dm Syrup -) 5 ml PO Q6H PRN PRN Reason: COUGH Stop: 12/18/18 23:59 Last Admin: 12/16/18 22:44 Dose: 5 ml Sodium Zirconium Cyclosilicate (Lokelma) 10 gm PO BID [facility] Last Admin: 12/17/18 11:01 Dose: 10 gm Torsemide 40 mg/ Torsemide 10 (mg) 50 mg PO DAILY [facility] - Objective Vital Signs: Vital Signs Temperature 98.4 F 12/17/18 13:44 Pulse Rate 102 H 12/17/18 13:44 Respiratory Rate 22 H 12/17/18 13:44 Blood Pressure 161/75 12/17/18 13:44 O2 Sat by Pulse Oximetry (%) 95 12/16/18 21:00 Constitutional: Yes: Calm Cardiovascular: Yes: Regular Rate and Rhythm, S1, S2 Respiratory: Yes: Diminished Gastrointestinal: Yes: Normal Bowel Sounds, Soft, Abdomen, Obese Extremities: Yes: Other (chronic changes) Labs: CBC, BMP 12/17/18 05:40 12/17/18 05:40 INR, PTT INR 1.50 (0.83-1.09) H 12/14/18 15:04 Problem List - Problems (1) Weight gain Assessment/Plan: iv lasix daily weights weight is decreasing Code(s): R63.5 - ABNORMAL WEIGHT GAIN (2) ZHANG (acute kidney injury) Assessment/Plan: acute on chronic renal disease renal eval renal sono Code(s): N17.9 - ACUTE KIDNEY FAILURE, UNSPECIFIED (3) Fluid overload Assessment/Plan: leg swelling iv lasix no DVT Code(s): E87.70 - FLUID OVERLOAD, UNSPECIFIED Qualifiers: Hypervolemia type: unspecified Qualified Code(s): E87.70 - Fluid overload, unspecified (4) Afib Assessment/Plan: eliquis bid no av jaja agents bc of bradycardia on last admission Code(s): I48.91 - UNSPECIFIED ATRIAL FIBRILLATION Qualifiers: Atrial fibrillation type: unspecified Qualified Code(s): I48.91 - Unspecified atrial fibrillation (5) Diabetes Code(s): E11.9 - TYPE 2 DIABETES MELLITUS WITHOUT COMPLICATIONS Qualifiers: Diabetes mellitus type: type 2 Diabetes mellitus senior care insulin use: with terminal superintendent use Diabetes mellitus complication status: without complication Qualified Code(s): E11.9 - Type 2 diabetes mellitus without complications; Z79.4 - residential (current) use of insulin (6) Cough Assessment/Plan: iv lasix iv abx wbc count improved Code(s): R05 - COUGH
--- NOTE | 2018-12-17 17:08 | PN ---
Progress Note, Physician History of Present Illness: Pt seen and examined at bedside. He is awake and alert. he denies shortness of breath. - Current Medication List Current Medications: Active Medications Acetaminophen (Tylenol -) 650 mg PO Q6H PRN PRN Reason: PAIN LEVEL 1-5 Last Admin: 12/15/18 07:00 Dose: 650 mg Allopurinol (Zyloprim -) 300 mg PO [facility] Last Admin: 12/16/18 22:44 Dose: 300 mg Amlodipine Besylate (Norvasc -) 5 mg PO DAILY@0800 [facility] Last Admin: 12/17/18 09:00 Dose: 5 mg Apixaban (Eliquis -) 5 mg PO BID [facility] Last Admin: 12/17/18 11:01 Dose: 5 mg Aspirin (Asa -) 81 mg PO DAILY [facility] Last Admin: 12/17/18 11:01 Dose: 81 mg Atorvastatin Calcium (Lipitor -) 40 mg PO HS [facility] Last Admin: 12/16/18 22:43 Dose: 40 mg Clopidogrel Bisulfate (Plavix -) 75 mg PO DAILY@0600 [facility] Last Admin: 12/17/18 06:58 Dose: 75 mg Colchicine (Colcrys) 0.6 mg PO DAILY [facility] Last Admin: 12/17/18 11:00 Dose: 0.6 mg Cyclosporine (Sandimmune) 100 mg PO [facility] Last Admin: 12/16/18 22:44 Dose: 100 mg Furosemide (Lasix Injection -) 40 mg IVPUSH BID@0600,1400 [facility] Stop: 12/17/18 23:00 Last Admin: 12/17/18 13:20 Dose: 40 mg Gabapentin (Neurontin -) 400 mg PO TID [facility] Last Admin: 12/17/18 13:20 Dose: 400 mg Hydralazine HCl (Apresoline -) 25 mg PO TID [facility] Last Admin: 12/17/18 13:20 Dose: 25 mg Ceftriaxone Sodium 1 gm/ (Dextrose) 50 mls @ 100 mls/hr IVPB DAILY [facility]; Protocol Last Admin: 12/17/18 11:00 Dose: 100 mls/hr Insulin Aspart (Novolog Vial Sliding Scale -) 1 vial SQ TIDAC [facility]; Protocol Last Admin: 12/17/18 11:26 Dose: Not Given Lidocaine (Lidoderm Patch -) 1 patch TP DAILY [facility] Last Admin: 12/17/18 11:02 Dose: 1 patch Meclizine HCl (Antivert -) 12.5 mg PO DAILY PRN PRN Reason: vertigo Miscellaneous (Lidoderm Patch Removal) 1 each MC DAILY@2200 [facility] Last Admin: 12/16/18 23:01 Dose: 1 each Oxycodone HCl (Roxicodone -) 10 mg PO Q6H PRN PRN Reason: PAIN LEVEL 6-10 Promethazine HCl/Dextromethorphan (Phenergan-Dm Syrup -) 5 ml PO Q6H PRN PRN Reason: COUGH Stop: 12/18/18 23:59 Last Admin: 12/16/18 22:44 Dose: 5 ml Sodium Zirconium Cyclosilicate (Lokelma) 10 gm PO BID [facility] Last Admin: 12/17/18 11:01 Dose: 10 gm Torsemide 40 mg/ Torsemide 10 (mg) 50 mg PO DAILY [facility] - Objective Vital Signs: Vital Signs Temperature 98.4 F 12/17/18 13:44 Pulse Rate 102 H 12/17/18 13:44 Respiratory Rate 22 H 12/17/18 13:44 Blood Pressure 161/75 12/17/18 13:44 O2 Sat by Pulse Oximetry (%) 96 12/17/18 09:00 Constitutional: Yes: Calm Eyes: Yes: Conjunctiva Clear HENT: Yes: Atraumatic Neck: Yes: Supple Cardiovascular: Yes: S1, S2 Respiratory: Yes: CTA Bilaterally Gastrointestinal: Yes: Soft, Abdomen, Obese Genitourinary: Yes: WNL Musculoskeletal: Yes: WNL Edema: Yes Edema: LLE: 1+, RLE: 1+ Integumentary: Yes: Venous Stasis Changes Neurological: Yes: Oriented Psychiatric: Yes: Oriented Labs: CBC, BMP 12/17/18 05:40 12/17/18 05:40 INR, PTT INR 1.50 (0.83-1.09) H 12/14/18 15:04 Assessment/Plan Current Medications Generic Name Dose Route Start Last Admin Trade Name Freq PRN Reason Stop Dose Admin Acetaminophen 650 mg 12/15/18 06:39 12/15/18 07:00 Tylenol - PO 650 mg Q6H PRN Administration PAIN LEVEL 1-5 Allopurinol 300 mg 12/14/18 22:30 12/16/18 22:44 Zyloprim - PO 300 mg HS JENNY Administration Amlodipine Besylate 5 mg 12/15/18 08:00 12/17/18 09:00 Norvasc - PO 5 mg DAILY@0800 JENNY Administration Apixaban 5 mg 12/14/18 22:27 12/17/18 11:01 Eliquis - PO 5 mg BID JENNY Administration Aspirin 81 mg 12/15/18 10:00 12/17/18 11:01 Asa - PO 81 mg DAILY JENNY Administration Atorvastatin Calcium 40 mg 12/14/18 22:00 12/16/18 22:43 Lipitor - PO 40 mg HS JENNY Administration Clopidogrel Bisulfate 75 mg 12/15/18 06:00 12/17/18 06:58 Plavix - PO 75 mg DAILY@0600 [facility]ENNY Administration Colchicine 0.6 mg 12/15/18 10:00 12/17/18 11:00 Colcrys PO 0.6 mg DAILY JENNY Administration Cyclosporine 100 mg 12/14/18 22:30 12/16/18 22:44 Sandimmune PO 100 mg HS JENNY Administration Furosemide 40 mg 12/15/18 14:00 12/17/18 13:20 Lasix Injection - IVPUSH 12/17/18 23:00 40 mg BID@0600,1400 JEN[facility] Administration Gabapentin 400 mg 12/16/18 22:00 12/17/18 13:20 Neurontin - PO 400 mg TID JENNY Administration Hydralazine HCl 25 mg 12/14/18 22:00 12/17/18 13:20 Apresoline - PO 25 mg TID JENNY Administration Ceftriaxone Sodium 1 gm/ 50 mls @ 100 mls/hr 12/14/18 16:00 12/17/18 11:00 Dextrose IVPB 100 mls/hr DAILY JENNY Administration Protocol Insulin Aspart 1 vial 12/16/18 07:00 12/17/18 11:26 Novolog Vial Sliding Scale - SQ Not Given TIDAC [facility] Protocol Lidocaine 1 patch 12/16/18 10:00 12/17/18 11:02 Lidoderm Patch - TP 1 patch DAILY JENNY Administration Meclizine HCl 12.5 mg 12/15/18 11:00 Antivert - PO DAILY PRN vertigo Miscellaneous 1 each 12/16/18 22:00 12/16/18 23:01 Lidoderm Patch Removal MC 1 each DAILY@2200 JENNY Administration Oxycodone HCl 10 mg 12/17/18 15:32 Roxicodone - PO Q6H PRN PAIN LEVEL 6-10 Promethazine HCl/Dextromethorphan 5 ml 12/16/18 19:32 12/16/18 22:44 Phenergan-Dm Syrup - PO 12/18/18 23:59 5 ml Q6H PRN Administration COUGH Sodium Zirconium Cyclosilicate 10 gm 12/16/18 22:00 12/17/18 11:01 Lokelma PO 10 gm BID JENNY Administration Torsemide 40 mg/ Torsemide 10 50 mg 12/18/18 10:00 mg PO DAILY JENNY Impression 1. CKD 2. ZHANG 3. s/p cardiac stent 4. morbid obesity 5. DM 6. PVD 7. Gout 8. Large cell granular leukemia/lymphoma 9. anemia 10. hyperkalemia Plan - renal function is improving - repeat labs in am - potassium improving - arb on hold - cont lokelma - monitor weights
[2018-12-17] MEDS: ATORVASTATIN CA 40 MG TABLET (FP) PO SCH (22:45)
[2018-12-17] MEDS: ALLOPURINOL 300 MG TABLET (FP) PO SCH (22:45)
[2018-12-17] MEDS: LIDOCAINE PATCH REMOVAL MC SCH (22:46)
[2018-12-18] MEDS: oxyCODONE HCL 5 MG TABLET PO PRN (05:05)
[2018-12-18] MEDS: CLOPIDOGREL BISULFATE 75 MG TABLET (FP) PO SCH (05:05)
[2018-12-18] MEDS: hydrALAZINE HCL 25 MG TABLET (FP) PO SCH ×3 (05:05→21:16)
[2018-12-18] MEDS: GABAPENTIN 400 MG CAPSULE (FP) PO SCH ×3 (05:05→21:16)
[2018-12-18] MEDS: INSULIN SLIDING SCALE (NOVOLOG) 1 VIAL SQ SCH ×3 (06:10→16:51)
[2018-12-18] MEDS ORDERED: DEXTROSE 5%-WATER - 50 ML IVPB ONE (08:57)
[2018-12-18] MEDS ORDERED: cefTRIAXone SODIUM 1 GM VIAL ONE (08:57)
[2018-12-18] MEDS: amLODIPine BESYLATE 5 MG TABLET (FP) PO SCH (08:59)
[2018-12-18] MEDS: APIXABAN 5 MG TABLET PO SCH ×2 (09:00→21:16)
[2018-12-18] MEDS: COLCHICINE 0.6 MG CAP PO SCH (09:00)
[2018-12-18] MEDS: LIDOCAINE 5% TOPICAL PATCH TP SCH (09:00)
[2018-12-18] MEDS: ASPIRIN 81 MG CHEWABLE TABLETS PO SCH (09:00)
[2018-12-18] MEDS: CEFTRIAXONE 1 GM in DEXTROSE 5%-WATER - 50 ML IVPB SCH (09:00)
[2018-12-18] MEDS: SODIUM ZIRCONIUM CYCLOSILICATE (LOKELMA) 5 GM PACKET PO SCH ×2 (09:01→11:37)
[2018-12-18] MEDS ORDERED: PT OWN MED DRAWER 7, Y5N ONE ×3 (09:04→20:38)
[2018-12-18] MEDS ORDERED: TORSEMIDE 40 MG, TORSEMIDE 10 MG PO SCH (10:00)
[2018-12-18] MEDS ORDERED: TORSEMIDE 100 MG TABLET PO SCH (10:00)
--- NOTE | 2018-12-18 10:25 | CONSULT ---
Consult - text type - Consultation Consultation Note: NEUROlOGY CONSULT GREATLY APPRECIATED: Events reviewed. 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 PMHX: Leukemia, AFIB, CAD (with stents), CHF, HTN, HLD, GERD, Renal Inusuff, Anemia, DM x 20 years, gout, 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 On: plavix, gabapentin 400 TID, Eliquis, colchicine, meclizine prn, allopurinol , cyclosporine, trulicity, amlodipine, ASA, atorvastatin, torsemide, hydralzine. Admitted with SOB and weight gain, s/p IV laxix. Also found with low Fe++, s/p Iv Iron infusion. Remains on IV ceftriaxone for possible cellulitis. Seen for complaints of new onset pains in left buttock radiating across anterior thigh, worse with prolonged sitting in ED and upon first awakening. Pt denies any difficulty or limitation in ambulation due to pain, and in fact it improves with movement. Also good response with use of Oxycodone. Vascular studies of legs revealed no acute DVT. EMG studies revealed primarily sensorimotor neuropathy c/w diabetes. CT of LS spine (reviewed): Multi-level facet hypertrophy with mild disc bulges. No sig central canal stenosis. Review of systems sig for chronic insomnia and recurrent awakenings attributed to nocturia and inability to lay on the left side. Also intermittent "dizziness " especially upon standing, that self resolves. No change in B/B or ataxia. SHEEBA: Morbidly obese. Poor dentition. Neg SLR. Neg Amber's. 3+ weeping edema and mottled L/E. Thready distal pulses. S/P toe amputations. NEURO: Awake, alert, responsive. Ox x 3. CNII-CNXII: EOM's full with full artis. No facial. Gag ok. Motor: No drift or tremor. Strength normal. Reflexes normal in arms. Areflexic in legs. Plantars silent. Coordination: No FTN dystaxia. Sensation: No vibration up to shins. Romberg - Gait: Can stand and ambulate independently. Sl waddle. Can walk on heels, toes. Impression: Diabetic Polyneuropathy. Less likely LS radiculopathy. Also possible DM dysautonomia. Contribution of Restless Limbs (possibly worsened by Iron deficiency Anemia) Suggest: Orthostatic BP's Tight glycemic control. Continue to monitor H/H and Iron panel. D/C meclizine. Increase gabapentin to 400, 400, 600 mg HS, with possible reduction of opioids. Pt would benefit from significant weight loss and possibly bariatric surgery if candidate. Thank you very much, Ang Bustamante MD
--- NOTE | 2018-12-18 10:26 | PN ---
Progress Note, Physician Chief Complaint: seen and examined No acute distress TELE: NSR, rare couplets. 3 beat NSVT No CP, no SOB, no dizziness. - Current Medication List Current Medications: Active Medications Acetaminophen (Tylenol -) 650 mg PO Q6H PRN PRN Reason: PAIN LEVEL 1-5 Last Admin: 12/15/18 07:00 Dose: 650 mg Allopurinol (Zyloprim -) 300 mg PO [facility] Last Admin: 12/17/18 22:45 Dose: 300 mg Amlodipine Besylate (Norvasc -) 5 mg PO DAILY@0800 [facility] Last Admin: 12/18/18 08:59 Dose: 5 mg Apixaban (Eliquis -) 5 mg PO BID [facility] Last Admin: 12/18/18 09:00 Dose: 5 mg Aspirin (Asa -) 81 mg PO DAILY [facility] Last Admin: 12/18/18 09:00 Dose: 81 mg Atorvastatin Calcium (Lipitor -) 40 mg PO [facility] Last Admin: 12/17/18 22:45 Dose: 40 mg Clopidogrel Bisulfate (Plavix -) 75 mg PO DAILY@0600 [facility] Last Admin: 12/18/18 05:05 Dose: 75 mg Colchicine (Colcrys) 0.6 mg PO DAILY [facility] Last Admin: 12/18/18 09:00 Dose: 0.6 mg Cyclosporine (Sandimmune) 100 mg PO [facility] Last Admin: 12/17/18 22:45 Dose: 100 mg Gabapentin (Neurontin -) 400 mg PO TID [facility] Last Admin: 12/18/18 05:05 Dose: 400 mg Hydralazine HCl (Apresoline -) 25 mg PO TID [facility] Last Admin: 12/18/18 05:05 Dose: 25 mg Ceftriaxone Sodium 1 gm/ (Dextrose) 50 mls @ 100 mls/hr IVPB DAILY [facility]; Protocol Last Admin: 12/18/18 09:00 Dose: 100 mls/hr Insulin Aspart (Novolog Vial Sliding Scale -) 1 vial SQ TIDAC [facility]; Protocol Last Admin: 12/18/18 06:10 Dose: Not Given Lidocaine (Lidoderm Patch -) 1 patch TP DAILY [facility] Last Admin: 12/18/18 09:00 Dose: 1 patch Meclizine HCl (Antivert -) 12.5 mg PO DAILY PRN PRN Reason: vertigo Miscellaneous (Lidoderm Patch Removal) 1 each MC DAILY@2200 [facility] Last Admin: 12/17/18 22:46 Dose: Not Given Oxycodone HCl (Roxicodone -) 10 mg PO Q6H PRN PRN Reason: PAIN LEVEL 6-10 Last Admin: 12/18/18 05:05 Dose: 10 mg Promethazine HCl/Dextromethorphan (Phenergan-Dm Syrup -) 5 ml PO Q6H PRN PRN Reason: COUGH Stop: 12/18/18 23:59 Last Admin: 12/16/18 22:44 Dose: 5 ml Sodium Zirconium Cyclosilicate (Lokelma) 10 gm PO BID [facility] Last Admin: 12/17/18 22:44 Dose: 10 gm Torsemide (Demadex -) 50 mg PO DAILY [facility] - Objective Vital Signs: Vital Signs Temperature 98 F 12/18/18 04:44 Pulse Rate 103 H 12/18/18 04:44 Respiratory Rate 20 12/18/18 04:44 Blood Pressure 132/58 L 12/18/18 04:44 O2 Sat by Pulse Oximetry (%) 96 12/17/18 20:27 Constitutional: Yes: Calm Cardiovascular: Yes: Regular Rate and Rhythm Respiratory: Yes: CTA Bilaterally Gastrointestinal: Yes: Soft, Abdomen, Obese Edema: Yes Edema: LLE: 1+, RLE: 1+ Neurological: Yes: Alert, Oriented Labs: CBC, BMP 12/17/18 05:40 12/17/18 05:40 INR, PTT INR 1.50 (0.83-1.09) H 12/14/18 15:04 - ....Imaging EKG: Image Reviewed Assessment/Plan Assessment/Plan Shortness of breath, cough, acute on chronic diastolic HF: - improved; now back on PO Torsemide - monitor Cr, lytes, daily weights atrial fibrillation: - cont eliquis - no bb for history of bradycardia CAD s/p recent PCI: - cont aspirin, plavix; follow up with interventional cards re duration of DAPT (in combo w/ NOAC) - not on bb due to bradycardia ZHANG on CKD - improved w/ diuresis. - renal following. DM: - manage per primary HTN- controlled - cont hydralazine, amlodipine anemia: - manage per heme
[2018-12-18] MEDS ORDERED: TORSEMIDE 20 MG TABLET (FP) PO SCH (10:30)
[2018-12-18] MEDS ORDERED: GABAPENTIN 100 MG CAPSULE (FP) PO ONE (13:01)
--- NOTE | 2018-12-18 13:08 | PN ---
Progress Note, Physician Chief Complaint: patient had runs of v tach today feels better ,breathing better leg pain improving - Current Medication List Current Medications: Active Medications Acetaminophen (Tylenol -) 650 mg PO Q6H PRN PRN Reason: PAIN LEVEL 1-5 Last Admin: 12/15/18 07:00 Dose: 650 mg Allopurinol (Zyloprim -) 300 mg PO [facility] Last Admin: 12/17/18 22:45 Dose: 300 mg Amlodipine Besylate (Norvasc -) 5 mg PO DAILY@0800 [facility] Last Admin: 12/18/18 08:59 Dose: 5 mg Apixaban (Eliquis -) 5 mg PO BID [facility] Last Admin: 12/18/18 09:00 Dose: 5 mg Aspirin (Asa -) 81 mg PO DAILY [facility] Last Admin: 12/18/18 09:00 Dose: 81 mg Atorvastatin Calcium (Lipitor -) 40 mg PO HS [facility] Last Admin: 12/17/18 22:45 Dose: 40 mg Clopidogrel Bisulfate (Plavix -) 75 mg PO DAILY@0600 [facility] Last Admin: 12/18/18 05:05 Dose: 75 mg Colchicine (Colcrys) 0.6 mg PO DAILY [facility] Last Admin: 12/18/18 09:00 Dose: 0.6 mg Cyclosporine (Sandimmune) 100 mg PO [facility] Last Admin: 12/17/18 22:45 Dose: 100 mg Gabapentin (Neurontin -) 400 mg PO TID [facility] Last Admin: 12/18/18 05:05 Dose: 400 mg Gabapentin (Neurontin -) 200 mg PO ONE Stop: 12/18/18 13:02 Hydralazine HCl (Apresoline -) 25 mg PO TID [facility] Last Admin: 12/18/18 05:05 Dose: 25 mg Ceftriaxone Sodium 1 gm/ (Dextrose) 50 mls @ 100 mls/hr IVPB DAILY [facility]; Protocol Last Admin: 12/18/18 09:00 Dose: 100 mls/hr Insulin Aspart (Novolog Vial Sliding Scale -) 1 vial SQ TIDAC [facility]; Protocol Last Admin: 12/18/18 11:37 Dose: Not Given Lidocaine (Lidoderm Patch -) 1 patch TP DAILY [facility] Last Admin: 12/18/18 09:00 Dose: 1 patch Meclizine HCl (Antivert -) 12.5 mg PO DAILY PRN PRN Reason: vertigo Miscellaneous (Lidoderm Patch Removal) 1 each MC DAILY@2200 [facility] Last Admin: 12/17/18 22:46 Dose: Not Given Multi-Ingredient Lotion (Eucerin (Large Jar) -) 1 applic TP BID PRN PRN Reason: DRY SKIN Promethazine HCl/Dextromethorphan (Phenergan-Dm Syrup -) 5 ml PO Q6H PRN PRN Reason: COUGH Stop: 12/18/18 23:59 Last Admin: 12/16/18 22:44 Dose: 5 ml Torsemide (Demadex -) 50 mg PO DAILY [facility] Last Admin: 12/18/18 10:34 Dose: 50 mg - Objective Vital Signs: Vital Signs Temperature 97.7 F 12/18/18 09:00 Pulse Rate 98 H 12/18/18 11:32 Respiratory Rate 19 12/18/18 09:00 Blood Pressure 133/67 12/18/18 11:32 O2 Sat by Pulse Oximetry (%) 99 12/18/18 09:00 Constitutional: Yes: Calm Neck: Yes: Trachea Midline Cardiovascular: Yes: Regular Rate and Rhythm, S1, S2 Respiratory: Yes: Diminished Gastrointestinal: Yes: Soft, Abdomen, Obese Extremities: Yes: Other (chronic venous stasis changes) Labs: CBC, BMP 12/17/18 05:40 12/17/18 05:40 INR, PTT INR 1.50 (0.83-1.09) H 12/14/18 15:04 Problem List - Problems (1) Weight gain Assessment/Plan: iv lasix change to torsemide daily weights Code(s): R63.5 - ABNORMAL WEIGHT GAIN (2) ZHANG (acute kidney injury) Assessment/Plan: acute on chronic renal disease creatinine decreasing closer to baseline Code(s): N17.9 - ACUTE KIDNEY FAILURE, UNSPECIFIED (3) Fluid overload Assessment/Plan: leg swelling improved iv lasix change to po trosemide no DVT Code(s): E87.70 - FLUID OVERLOAD, UNSPECIFIED Qualifiers: Hypervolemia type: unspecified Qualified Code(s): E87.70 - Fluid overload, unspecified (4) Afib Assessment/Plan: eliquis bid no av jaja agents bc of bradycardia on last admission Code(s): I48.91 - UNSPECIFIED ATRIAL FIBRILLATION Qualifiers: Atrial fibrillation type: unspecified Qualified Code(s): I48.91 - Unspecified atrial fibrillation (5) Diabetes Code(s): E11.9 - TYPE 2 DIABETES MELLITUS WITHOUT COMPLICATIONS Qualifiers: Diabetes mellitus type: type 2 Diabetes mellitus usp insulin use: with usp use Diabetes mellitus complication status: without complication Qualified Code(s): E11.9 - Type 2 diabetes mellitus without complications; Z79.4 - long-term (current) use of insulin (6) Cough Assessment/Plan: iv lasix iv abx rocephin change to po keflex in AM wbc count improved Code(s): R05 - COUGH (7) Leg pain Assessment/Plan: seen by neruology for neuropathy and leg isaac neurontin dose increased Code(s): M79.606 - PAIN IN LEG, UNSPECIFIED Assessment/Plan runs of vtalaine today will oberseve today on monitor dc home tmw in am on po torsemide and po keflex
--- NOTE | 2018-12-18 14:05 | EKG ---
Test Reason : Blood Pressure : / mmHG Vent. Rate : 093 BPM Atrial Rate : 093 BPM P-R Int : 196 ms QRS Dur : 104 ms QT Int : 370 ms P-R-T Axes : 031 -76 042 degrees QTc Int : 460 ms POOR DATA QUALITY, INTERPRETATION MAY BE ADVERSELY AFFECTED NORMAL SINUS RHYTHM LEFT AXIS DEVIATION INCOMPLETE RBBB ABNORMAL ECG WHEN COMPARED WITH ECG OF 14-DEC-2018 13:39, VENT. RATE HAS INCREASED BY 31 BPM Confirmed by ROSANA CARVAJAL MD ([id number]) on 12/18/2018 2:05:25 PM Referred By: Confirmed By:ROSANA CARVAJAL MD
[2018-12-18] MEDS ORDERED: FUROSEMIDE 40 MG/4 ML INJECTABLE VIAL IVPUSH ONE (14:48)
--- NOTE | 2018-12-18 14:55 | PN ---
Progress Note, Physician History of Present Illness: Pt seen and examined at bedside. He says that he drank about 2 liters of water overnight. He complains of edema. - Current Medication List Current Medications: Active Medications Acetaminophen (Tylenol -) 650 mg PO Q6H PRN PRN Reason: PAIN LEVEL 1-5 Last Admin: 12/15/18 07:00 Dose: 650 mg Allopurinol (Zyloprim -) 300 mg PO [facility] Last Admin: 12/17/18 22:45 Dose: 300 mg Amlodipine Besylate (Norvasc -) 5 mg PO DAILY@0800 [facility] Last Admin: 12/18/18 08:59 Dose: 5 mg Apixaban (Eliquis -) 5 mg PO BID [facility] Last Admin: 12/18/18 09:00 Dose: 5 mg Aspirin (Asa -) 81 mg PO DAILY [facility] Last Admin: 12/18/18 09:00 Dose: 81 mg Atorvastatin Calcium (Lipitor -) 40 mg PO [facility] Last Admin: 12/17/18 22:45 Dose: 40 mg Clopidogrel Bisulfate (Plavix -) 75 mg PO DAILY@0600 [facility] Last Admin: 12/18/18 05:05 Dose: 75 mg Colchicine (Colcrys) 0.6 mg PO DAILY [facility] Last Admin: 12/18/18 09:00 Dose: 0.6 mg Cyclosporine (Sandimmune) 100 mg PO [facility] Last Admin: 12/17/18 22:45 Dose: 100 mg Gabapentin (Neurontin -) 400 mg PO TID [facility] Last Admin: 12/18/18 05:05 Dose: 400 mg Hydralazine HCl (Apresoline -) 25 mg PO TID [facility] Last Admin: 12/18/18 05:05 Dose: 25 mg Ceftriaxone Sodium 1 gm/ (Dextrose) 50 mls @ 100 mls/hr IVPB DAILY [facility]; Protocol Last Admin: 12/18/18 09:00 Dose: 100 mls/hr Insulin Aspart (Novolog Vial Sliding Scale -) 1 vial SQ TIDAC [facility]; Protocol Last Admin: 12/18/18 11:37 Dose: Not Given Lidocaine (Lidoderm Patch -) 1 patch TP DAILY [facility] Last Admin: 12/18/18 09:00 Dose: 1 patch Meclizine HCl (Antivert -) 12.5 mg PO DAILY PRN PRN Reason: vertigo Miscellaneous (Lidoderm Patch Removal) 1 each MC DAILY@2200 [facility] Last Admin: 12/17/18 22:46 Dose: Not Given Multi-Ingredient Lotion (Eucerin (Large Jar) -) 1 applic TP BID PRN PRN Reason: DRY SKIN Promethazine HCl/Dextromethorphan (Phenergan-Dm Syrup -) 5 ml PO Q6H PRN PRN Reason: COUGH Stop: 12/18/18 23:59 Last Admin: 12/16/18 22:44 Dose: 5 ml Torsemide (Demadex -) 50 mg PO DAILY [facility] Last Admin: 12/18/18 10:34 Dose: 50 mg - Objective Vital Signs: Vital Signs Temperature 97.7 F 12/18/18 09:00 Pulse Rate 98 H 12/18/18 11:32 Respiratory Rate 19 12/18/18 09:00 Blood Pressure 133/67 12/18/18 11:32 O2 Sat by Pulse Oximetry (%) 99 12/18/18 09:00 Constitutional: Yes: Calm Eyes: Yes: Conjunctiva Clear HENT: Yes: Atraumatic Neck: Yes: Supple Cardiovascular: Yes: S1, S2 Respiratory: Yes: CTA Bilaterally Gastrointestinal: Yes: Normal Bowel Sounds, Soft, Abdomen, Obese Genitourinary: Yes: WNL Musculoskeletal: Yes: WNL Edema: Yes Edema: LLE: 2+, RLE: 2+ Integumentary: Yes: Venous Stasis Changes Neurological: Yes: Oriented Psychiatric: Yes: Oriented Labs: CBC, BMP 12/17/18 05:40 12/17/18 05:40 INR, PTT INR 1.50 (0.83-1.09) H 12/14/18 15:04 Assessment/Plan Current Medications Generic Name Dose Route Start Last Admin Trade Name Freq PRN Reason Stop Dose Admin Acetaminophen 650 mg 12/15/18 06:39 12/15/18 07:00 Tylenol - PO 650 mg Q6H PRN Administration PAIN LEVEL 1-5 Allopurinol 300 mg 12/14/18 22:30 12/17/18 22:45 Zyloprim - PO 300 mg HS [facility] Administration Amlodipine Besylate 5 mg 12/15/18 08:00 12/18/18 08:59 Norvasc - PO 5 mg DAILY@0800 [facility] Administration Apixaban 5 mg 12/14/18 22:27 12/18/18 09:00 Eliquis - PO 5 mg BID JENNY Administration Aspirin 81 mg 12/15/18 10:00 12/18/18 09:00 Asa - PO 81 mg DAILY JENNY Administration Atorvastatin Calcium 40 mg 12/14/18 22:00 12/17/18 22:45 Lipitor - PO 40 mg HS JENNY Administration Clopidogrel Bisulfate 75 mg 12/15/18 06:00 12/18/18 05:05 Plavix - PO 75 mg DAILY@0600 [facility] Administration Colchicine 0.6 mg 12/15/18 10:00 12/18/18 09:00 Colcrys PO 0.6 mg DAILY JENNY Administration Cyclosporine 100 mg 12/14/18 22:30 12/17/18 22:45 Sandimmune PO 100 mg HS JENNY Administration Gabapentin 400 mg 12/16/18 22:00 12/18/18 05:05 Neurontin - PO 400 mg TID JENNY Administration Hydralazine HCl 25 mg 12/14/18 22:00 12/18/18 05:05 Apresoline - PO 25 mg TID JENNY Administration Ceftriaxone Sodium 1 gm/ 50 mls @ 100 mls/hr 12/14/18 16:00 12/18/18 09:00 Dextrose IVPB 100 mls/hr DAILY [facility] Administration Protocol Insulin Aspart 1 vial 12/16/18 07:00 12/18/18 11:37 Novolog Vial Sliding Scale - SQ Not Given TIDAC [facility] Protocol Lidocaine 1 patch 12/16/18 10:00 12/18/18 09:00 Lidoderm Patch - TP 1 patch DAILY [facility] Administration Meclizine HCl 12.5 mg 12/15/18 11:00 Antivert - PO DAILY PRN vertigo Miscellaneous 1 each 12/16/18 22:00 12/17/18 22:46 Lidoderm Patch Removal MC Not Given DAILY@2200 [facility] Multi-Ingredient Lotion 1 applic 12/18/18 12:58 Eucerin (Large Jar) - TP BID PRN DRY SKIN Promethazine HCl/Dextromethorphan 5 ml 12/16/18 19:32 12/16/18 22:44 Phenergan-Dm Syrup - PO 12/18/18 23:59 5 ml Q6H PRN Administration COUGH Torsemide 50 mg 12/18/18 10:30 12/18/18 10:34 Demadex - PO 50 mg DAILY [facility]NY Administration Impression 1. CKD 2. ZHANG 3. s/p cardiac stent 4. morbid obesity 5. DM 6. PVD 7. Gout 8. Large cell granular leukemia/lymphoma 9. anemia 10. hyperkalemia Plan - will give an extra dose of lasix - discussed fluid intake with pt - repeat labs in am - potassium improving - arb on hold - monitor weights
[2018-12-18] MEDS: MINERAL OIL/PETROLAT/WATER TOPICAL CREAM 454 GM JAR TP PRN (15:06)
--- NOTE | 2018-12-18 15:16 | PN ---
Progress Note (short form) - Note Progress Note: petros stop torsemide and change to iv lasix bid Problem List - Problems (1) Weight gain Code(s): R63.5 - ABNORMAL WEIGHT GAIN (2) ZHANG (acute kidney injury) Code(s): N17.9 - ACUTE KIDNEY FAILURE, UNSPECIFIED (3) Fluid overload Code(s): E87.70 - FLUID OVERLOAD, UNSPECIFIED Qualifiers: Hypervolemia type: unspecified Qualified Code(s): E87.70 - Fluid overload, unspecified (4) Afib Code(s): I48.91 - UNSPECIFIED ATRIAL FIBRILLATION Qualifiers: Atrial fibrillation type: unspecified Qualified Code(s): I48.91 - Unspecified atrial fibrillation (5) Diabetes Code(s): E11.9 - TYPE 2 DIABETES MELLITUS WITHOUT COMPLICATIONS Qualifiers: Diabetes mellitus type: type 2 Diabetes mellitus senior living insulin use: with intermediate frame tender use Diabetes mellitus complication status: without complication Qualified Code(s): E11.9 - Type 2 diabetes mellitus without complications; 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
[2018-12-18] MEDS: ACETAMINOPHEN 325 MG TABLET (FP) PO PRN (21:15)
[2018-12-18] MEDS: ALLOPURINOL 300 MG TABLET (FP) PO SCH (21:16)
[2018-12-18] MEDS: ATORVASTATIN CA 40 MG TABLET (FP) PO SCH (21:16)
[2018-12-18] MEDS: DEXTROMETHORPHAN/PROMETHAZINE 15 MG/6.25 MG/5 ML SYRUP PO PRN (21:17)
[2018-12-18] MEDS: LIDOCAINE PATCH REMOVAL MC SCH (21:17)
--- NOTE | 2018-12-18 23:01 | PN ---
Progress Note, Physician Chief Complaint: COUGHING AND NOT SLEEPING FROM COUGH - Current Medication List Current Medications: Active Medications Acetaminophen (Tylenol -) 650 mg PO Q6H PRN PRN Reason: PAIN LEVEL 1-5 Last Admin: 12/18/18 21:15 Dose: 650 mg Allopurinol (Zyloprim -) 300 mg PO [facility] Last Admin: 12/18/18 21:16 Dose: 300 mg Amlodipine Besylate (Norvasc -) 5 mg PO DAILY@0800 [facility] Last Admin: 12/18/18 08:59 Dose: 5 mg Apixaban (Eliquis -) 5 mg PO BID [facility] Last Admin: 12/18/18 21:16 Dose: 5 mg Aspirin (Asa -) 81 mg PO DAILY [facility] Last Admin: 12/18/18 09:00 Dose: 81 mg Atorvastatin Calcium (Lipitor -) 40 mg PO [facility] Last Admin: 12/18/18 21:16 Dose: 40 mg Clopidogrel Bisulfate (Plavix -) 75 mg PO DAILY@0600 [facility] Last Admin: 12/18/18 05:05 Dose: 75 mg Colchicine (Colcrys) 0.6 mg PO DAILY [facility] Last Admin: 12/18/18 09:00 Dose: 0.6 mg Cyclosporine (Sandimmune) 100 mg PO [facility] Last Admin: 12/18/18 21:16 Dose: 100 mg Furosemide (Lasix Injection -) 40 mg IVPUSH BID@0600,1400 [facility] Gabapentin (Neurontin -) 400 mg PO TID [facility] Last Admin: 12/18/18 21:16 Dose: 400 mg Hydralazine HCl (Apresoline -) 25 mg PO TID [facility] Last Admin: 12/18/18 21:16 Dose: 25 mg Ceftriaxone Sodium 1 gm/ (Dextrose) 50 mls @ 100 mls/hr IVPB DAILY [facility]; Protocol Last Admin: 12/18/18 09:00 Dose: 100 mls/hr Insulin Aspart (Novolog Vial Sliding Scale -) 1 vial SQ TIDAC [facility]; Protocol Last Admin: 12/18/18 16:51 Dose: Not Given Lidocaine (Lidoderm Patch -) 1 patch TP DAILY [facility] Last Admin: 12/18/18 09:00 Dose: 1 patch Meclizine HCl (Antivert -) 12.5 mg PO DAILY PRN PRN Reason: vertigo Miscellaneous (Lidoderm Patch Removal) 1 each MC DAILY@2200 [facility] Last Admin: 12/18/18 21:17 Dose: Not Given Multi-Ingredient Lotion (Eucerin (Large Jar) -) 1 applic TP BID PRN PRN Reason: DRY SKIN Last Admin: 12/18/18 15:06 Dose: 1 applic Promethazine HCl/Dextromethorphan (Phenergan-Dm Syrup -) 5 ml PO Q6H PRN PRN Reason: COUGH Stop: 12/18/18 23:59 Last Admin: 12/18/18 21:17 Dose: 5 ml - Objective Vital Signs: Vital Signs Temperature 97.9 F 12/18/18 20:27 Pulse Rate 112 H 12/18/18 20:27 Respiratory Rate 20 12/18/18 20:27 Blood Pressure 139/64 12/18/18 20:27 O2 Sat by Pulse Oximetry (%) 98 12/18/18 20:27 Constitutional: Yes: Anxious Eyes: Yes: EOM Intact HENT: Yes: Normocephalic Neck: Yes: Trachea Midline Cardiovascular: Yes: Regular Rate and Rhythm Respiratory: Yes: Rales, Tachypnea Gastrointestinal: Yes: Normal Bowel Sounds ...Rectal Exam: Yes: Deferred Genitourinary: Yes: WNL Musculoskeletal: Yes: Back Pain, Joint Stiffness, Joint Swelling, Muscle Pain Extremities: Yes: Delayed Capillary Refill, Erythema Edema: Yes Neurological: Yes: Alert, Oriented Labs: CBC, BMP 12/17/18 05:40 12/17/18 05:40 INR, PTT INR 1.50 (0.83-1.09) H 12/14/18 15:04 Problem List - Problems (1) Type 2 diabetes mellitus with other diabetic kidney complication Code(s): E11.29 - TYPE 2 DIABETES MELLITUS W OTH DIABETIC KIDNEY COMPLICATION (2) ZHANG (acute kidney injury) Code(s): N17.9 - ACUTE KIDNEY FAILURE, UNSPECIFIED (3) Anemia Code(s): D64.9 - ANEMIA, UNSPECIFIED Qualifiers: Anemia type: iron deficiency Iron deficiency anemia type: unspecified iron deficiency Qualified Code(s): D50.9 - Iron deficiency anemia, unspecified (4) CHF (congestive heart failure) Code(s): I50.9 - HEART FAILURE, UNSPECIFIED Qualifiers: Heart failure type: unspecified Heart failure chronicity: acute on chronic Qualified Code(s): I50.9 - Heart failure, unspecified (5) CKD (chronic kidney disease) Code(s): N18.9 - CHRONIC KIDNEY DISEASE, UNSPECIFIED Qualifiers: Chronic kidney disease stage: unspecified stage Qualified Code(s): N18.9 - Chronic kidney disease, unspecified (6) Cough Code(s): R05 - COUGH (7) Fluid overload Code(s): E87.70 - FLUID OVERLOAD, UNSPECIFIED Qualifiers: Hypervolemia type: unspecified Qualified Code(s): E87.70 - Fluid overload, unspecified (8) Radiculopathy Code(s): M54.10 - RADICULOPATHY, SITE UNSPECIFIED Qualifiers: Spinal region: lumbosacral Qualified Code(s): M54.17 - Radiculopathy, lumbosacral region Assessment/Plan Current Active Problems ZHANG (acute kidney injury) (Acute) Acute kidney injury superimposed on CKD (Acute) Anemia (Acute) CHF (congestive heart failure) (Acute) CKD (chronic kidney disease) (Acute) Cellulitis (Acute) Chronic venous stasis (Acute) Cough (Acute) Fluid overload (Acute) Leg pain (Acute) Radiculopathy (Acute) Type 2 diabetes mellitus with other diabetic kidney complication (Acute) Weakness (Acute) Weight gain (Acute) Laboratory Results - last 24 hr 12/18/18 12/18/18 12/18/18 06:06 11:27 13:42 POC Glucometer 110 168 Magnesium 1.9 12/18/18 16:50 POC Glucometer 108 Magnesium PLAN: BGM TID NOVOLOG SCALE PROMETHAZINE COUGH SYRUP TID PRN
[2018-12-19] MEDS: hydrALAZINE HCL 25 MG TABLET (FP) PO SCH ×3 (06:02→22:07)
[2018-12-19] MEDS: CLOPIDOGREL BISULFATE 75 MG TABLET (FP) PO SCH (06:02)
[2018-12-19] MEDS: FUROSEMIDE 40 MG/4 ML INJECTABLE VIAL IVPUSH SCH ×2 (06:03→13:34)
[2018-12-19] MEDS: GABAPENTIN 400 MG CAPSULE (FP) PO SCH (06:03)
[2018-12-19] MEDS: INSULIN SLIDING SCALE (NOVOLOG) 1 VIAL SQ SCH ×3 (08:14→16:48)
[2018-12-19] MEDS: amLODIPine BESYLATE 5 MG TABLET (FP) PO SCH (08:46)
[2018-12-19] MEDS ORDERED: cefTRIAXone SODIUM 1 GM VIAL ONE (09:26)
[2018-12-19] MEDS ORDERED: DEXTROSE 5%-WATER - 50 ML IVPB ONE (09:27)
[2018-12-19] MEDS: APIXABAN 5 MG TABLET PO SCH ×2 (09:34→22:07)
[2018-12-19] MEDS: ASPIRIN 81 MG CHEWABLE TABLETS PO SCH (09:34)
[2018-12-19] MEDS: COLCHICINE 0.6 MG CAP PO SCH (09:34)
[2018-12-19] MEDS: CEFTRIAXONE 1 GM in DEXTROSE 5%-WATER - 50 ML IVPB SCH (09:35)
[2018-12-19] MEDS: LIDOCAINE 5% TOPICAL PATCH TP SCH (09:36)
[2018-12-19] MEDS: MINERAL OIL/PETROLAT/WATER TOPICAL CREAM 454 GM JAR TP PRN ×2 (09:42→22:14)
--- NOTE | 2018-12-19 11:18 | PN ---
Progress Note (short form) - Note Progress Note: s: no chest pain, sob, palps, dizziness. Current Medications Generic Name Dose Route Start Last Admin Trade Name Freq PRN Reason Stop Dose Admin Acetaminophen 650 mg 12/15/18 06:39 12/18/18 21:15 Tylenol - PO 650 mg Q6H PRN Administration PAIN LEVEL 1-5 Allopurinol 300 mg 12/14/18 22:30 12/18/18 21:16 Zyloprim - PO 300 mg HS [facility] Administration Amlodipine Besylate 5 mg 12/15/18 08:00 12/19/18 08:46 Norvasc - PO 5 mg DAILY@0800 [facility] Administration Apixaban 5 mg 12/14/18 22:27 12/19/18 09:34 Eliquis - PO 5 mg BID [facility] Administration Aspirin 81 mg 12/15/18 10:00 12/19/18 09:34 Asa - PO 81 mg DAILY [facility] Administration Atorvastatin Calcium 40 mg 12/14/18 22:00 12/18/18 21:16 Lipitor - PO 40 mg HS [facility] Administration Clopidogrel Bisulfate 75 mg 12/15/18 06:00 12/19/18 06:02 Plavix - PO 75 mg DAILY@0600 [facility] Administration Colchicine 0.6 mg 12/15/18 10:00 12/19/18 09:34 Colcrys PO 0.6 mg DAILY [facility] Administration Cyclosporine 100 mg 12/14/18 22:30 12/18/18 21:16 Sandimmune PO 100 mg HS [facility] Administration Furosemide 40 mg 12/19/18 06:00 12/19/18 06:03 Lasix Injection - IVPUSH 40 mg BID@0600,1400 [facility] Administration Gabapentin 400 mg 12/16/18 22:00 12/19/18 06:03 Neurontin - PO 400 mg TID [facility] Administration Hydralazine HCl 25 mg 12/14/18 22:00 12/19/18 06:02 Apresoline - PO 25 mg TID [facility] Administration Ceftriaxone Sodium 1 gm/ 50 mls @ 100 mls/hr 12/14/18 16:00 12/19/18 09:35 Dextrose IVPB 100 mls/hr DAILY [facility] Administration Protocol Insulin Aspart 1 vial 12/16/18 07:00 12/19/18 08:14 Novolog Vial Sliding Scale - SQ Not Given TIDAC [facility] Protocol Lidocaine 1 patch 12/16/18 10:00 12/19/18 09:36 Lidoderm Patch - TP 1 patch DAILY [facility] Administration Meclizine HCl 12.5 mg 12/15/18 11:00 Antivert - PO DAILY PRN vertigo Miscellaneous 1 each 12/16/18 22:00 12/18/18 21:17 Lidoderm Patch Removal MC Not Given DAILY@2200 [facility] Multi-Ingredient Lotion 1 applic 12/18/18 12:58 12/19/18 09:42 Eucerin (Large Jar) - TP 1 applic BID PRN Administration DRY SKIN Vital Signs Period Temp Pulse Resp BP Sys/Reddy Pulse Ox Last 24 Hr 97.9 F-98.7 F 82-112 18-20 120-153/51-72 95-98 Constitutional: Yes: No Distress Eyes: Yes: Conjunctiva Clear Respiratory: Yes: CTA Bilaterally Gastrointestinal: Yes: Soft, Abdomen, Obese Cardiovascular: Yes: Pulse Irregular JVD: No Carotid Bruit: No Heart Sounds: Yes: S1, S2 (irreg) Edema: trace bl Neurological: Yes: Alert, Oriented CBC, BMP 12/17/18 05:40 12/17/18 05:40 CXR: no congestion SR, 1st degree AVB, APCs, Peaked T waves tele: sinus Assessment/Plan Shortness of breath, cough, acute on chronic diastolic HF - improved with iv lasix - monitor Cr, lytes, daily weights atrial fibrillation - cont eliquis - no bb for history of bradycardia CAD s/p recent PCI - cont aspirin, plavix - not on bb due to bradycardia ZHANG on CKD - improving after lasix - renal consulted DM - manage per primary HTN - cont hydralazine, amlodipine anemia - manage per heme
--- NOTE | 2018-12-19 11:38 | PN ---
Progress Note (short form) - Note Progress Note: Renal follow up for ZHANG Coverage for Dr. Anderson Seen and examined at the bedside awake and alert no acute complaints no sob, chest pain or abd pain making urine legs remain swollen Vital Signs Temperature 98.7 F 12/19/18 08:10 Pulse Rate 102 H 12/19/18 08:10 Respiratory Rate 18 12/19/18 08:10 Blood Pressure 153/72 12/19/18 08:10 O2 Sat by Pulse Oximetry (%) 95 12/19/18 08:12 Intake & Output 12/16/18 12/17/18 12/18/18 12/19/18 23:59 23:59 23:59 23:59 Intake Total 600 1160 1230 240 Balance 600 1160 1230 240 Weight 151.228 kg 149.504 kg 150.321 kg 150.321 kg NAD awake and alert neck supple Dec BS bilateral lung artis + edema in LE CBC, BMP 12/17/18 05:40 12/17/18 05:40 Current Medications Acetaminophen (Tylenol -) 650 mg PO Q6H PRN PRN Reason: PAIN LEVEL 1-5 Last Admin: 12/18/18 21:15 Dose: 650 mg Allopurinol (Zyloprim -) 300 mg PO [facility] Last Admin: 12/18/18 21:16 Dose: 300 mg Amlodipine Besylate (Norvasc -) 5 mg PO DAILY@0800 [facility] Last Admin: 12/19/18 08:46 Dose: 5 mg Apixaban (Eliquis -) 5 mg PO BID [facility] Last Admin: 12/19/18 09:34 Dose: 5 mg Aspirin (Asa -) 81 mg PO DAILY [facility] Last Admin: 12/19/18 09:34 Dose: 81 mg Atorvastatin Calcium (Lipitor -) 40 mg PO HS [facility] Last Admin: 12/18/18 21:16 Dose: 40 mg Clopidogrel Bisulfate (Plavix -) 75 mg PO DAILY@0600 [facility] Last Admin: 12/19/18 06:02 Dose: 75 mg Colchicine (Colcrys) 0.6 mg PO DAILY [facility] Last Admin: 12/19/18 09:34 Dose: 0.6 mg Cyclosporine (Sandimmune) 100 mg PO HS [facility] Last Admin: 12/18/18 21:16 Dose: 100 mg Furosemide (Lasix Injection -) 40 mg IVPUSH BID@0600,1400 [facility] Last Admin: 12/19/18 06:03 Dose: 40 mg Gabapentin (Neurontin -) 400 mg PO TID [facility] Last Admin: 12/19/18 06:03 Dose: 400 mg Hydralazine HCl (Apresoline -) 25 mg PO TID [facility] Last Admin: 12/19/18 06:02 Dose: 25 mg Ceftriaxone Sodium 1 gm/ (Dextrose) 50 mls @ 100 mls/hr IVPB DAILY [facility]; Protocol Last Admin: 12/19/18 09:35 Dose: 100 mls/hr Insulin Aspart (Novolog Vial Sliding Scale -) 1 vial SQ TIDAC [facility]; Protocol Last Admin: 12/19/18 08:14 Dose: Not Given Lidocaine (Lidoderm Patch -) 1 patch TP DAILY [facility] Last Admin: 12/19/18 09:36 Dose: 1 patch Meclizine HCl (Antivert -) 12.5 mg PO DAILY PRN PRN Reason: vertigo Miscellaneous (Lidoderm Patch Removal) 1 each MC DAILY@2200 [facility] Last Admin: 12/18/18 21:17 Dose: Not Given Multi-Ingredient Lotion (Eucerin (Large Jar) -) 1 applic TP BID PRN PRN Reason: DRY SKIN Last Admin: 12/19/18 09:42 Dose: 1 applic Impression 1. CKD 2. ZHANG 3. s/p cardiac stent 4. morbid obesity 5. DM 6. PVD 7. Gout 8. Large cell granular leukemia/lymphoma 9. anemia 10. hyperkalemia Plan no labs resulted for today, ordered stat BMP Clinically stable/unchanged continue Lasix IV BID can consider addition of thiazide diuretic if no improvement in weights trend renal function and electrolytes daily Jay Evans DO
[2018-12-19 12:10] LABS: BLOOD UREA NITROGEN 68.4 mg/dL (7-18); CALCIUM 7.8 mg/dL (8.5-10.1); CREATININE 2.1 mg/dL (0.55-1.3); POTASSIUM 4.3 mmol/L (3.5-5.1)
--- NOTE | 2018-12-19 12:30 | PN ---
Progress Note, Physician Chief Complaint: AWAKE ALERT LOW BACK PAIN - Current Medication List Current Medications: Active Medications Acetaminophen (Tylenol -) 650 mg PO Q6H PRN PRN Reason: PAIN LEVEL 1-5 Last Admin: 12/18/18 21:15 Dose: 650 mg Allopurinol (Zyloprim -) 300 mg PO [facility] Last Admin: 12/18/18 21:16 Dose: 300 mg Amlodipine Besylate (Norvasc -) 5 mg PO DAILY@0800 [facility] Last Admin: 12/19/18 08:46 Dose: 5 mg Apixaban (Eliquis -) 5 mg PO BID [facility] Last Admin: 12/19/18 09:34 Dose: 5 mg Aspirin (Asa -) 81 mg PO DAILY [facility] Last Admin: 12/19/18 09:34 Dose: 81 mg Atorvastatin Calcium (Lipitor -) 40 mg PO [facility] Last Admin: 12/18/18 21:16 Dose: 40 mg Clopidogrel Bisulfate (Plavix -) 75 mg PO DAILY@0600 [facility] Last Admin: 12/19/18 06:02 Dose: 75 mg Colchicine (Colcrys) 0.6 mg PO DAILY [facility] Last Admin: 12/19/18 09:34 Dose: 0.6 mg Cyclosporine (Sandimmune) 100 mg PO [facility] Last Admin: 12/18/18 21:16 Dose: 100 mg Furosemide (Lasix Injection -) 40 mg IVPUSH BID@0600,1400 [facility] Last Admin: 12/19/18 06:03 Dose: 40 mg Gabapentin (Neurontin -) 400 mg PO TID [facility] Last Admin: 12/19/18 06:03 Dose: 400 mg Hydralazine HCl (Apresoline -) 25 mg PO TID [facility] Last Admin: 12/19/18 06:02 Dose: 25 mg Ceftriaxone Sodium 1 gm/ (Dextrose) 50 mls @ 100 mls/hr IVPB DAILY [facility]; Protocol Last Admin: 12/19/18 09:35 Dose: 100 mls/hr Insulin Aspart (Novolog Vial Sliding Scale -) 1 vial SQ TIDAC [facility]; Protocol Last Admin: 12/19/18 11:40 Dose: Not Given Lidocaine (Lidoderm Patch -) 1 patch TP DAILY [facility] Last Admin: 12/19/18 09:36 Dose: 1 patch Meclizine HCl (Antivert -) 12.5 mg PO DAILY PRN PRN Reason: vertigo Miscellaneous (Lidoderm Patch Removal) 1 each MC DAILY@2200 [facility] Last Admin: 12/18/18 21:17 Dose: Not Given Multi-Ingredient Lotion (Eucerin (Large Jar) -) 1 applic TP BID PRN PRN Reason: DRY SKIN Last Admin: 12/19/18 09:42 Dose: 1 applic - Objective Vital Signs: Vital Signs Temperature 98.5 F 12/19/18 12:00 Pulse Rate 96 H 12/19/18 12:00 Respiratory Rate 20 12/19/18 12:00 Blood Pressure 130/62 12/19/18 12:00 O2 Sat by Pulse Oximetry (%) 95 12/19/18 08:12 Constitutional: Yes: Mild Distress Cardiovascular: Yes: Regular Rate and Rhythm Respiratory: Yes: Diminished Gastrointestinal: Yes: Soft, Abdomen, Obese Genitourinary: Yes: WNL Musculoskeletal: Yes: Back Pain, Muscle Weakness Edema: Yes Edema: LLE: 3+, RLE: 3+ Integumentary: Yes: Pressure Ulcer, Venous Stasis Changes Wound/Incision: Yes: Dressing Dry and Intact, Draining Neurological: Yes: Pre-Existing Deficit, Unsteady Gait ...Motor Strength: LLE, RLE Psychiatric: Yes: Other Labs: CBC, BMP 12/17/18 05:40 12/19/18 11:10 INR, PTT INR 1.50 (0.83-1.09) H 12/14/18 15:04 Problem List - Problems (1) Acute kidney injury superimposed on CKD Code(s): N17.9 - ACUTE KIDNEY FAILURE, UNSPECIFIED; N18.9 - CHRONIC KIDNEY DISEASE, UNSPECIFIED (2) Anemia Code(s): D64.9 - ANEMIA, UNSPECIFIED Qualifiers: Anemia type: iron deficiency Iron deficiency anemia type: unspecified iron deficiency Qualified Code(s): D50.9 - Iron deficiency anemia, unspecified (3) CHF (congestive heart failure) Code(s): I50.9 - HEART FAILURE, UNSPECIFIED Qualifiers: Heart failure type: unspecified Heart failure chronicity: acute on chronic Qualified Code(s): I50.9 - Heart failure, unspecified (4) CKD (chronic kidney disease) Code(s): N18.9 - CHRONIC KIDNEY DISEASE, UNSPECIFIED Qualifiers: Chronic kidney disease stage: unspecified stage Qualified Code(s): N18.9 - Chronic kidney disease, unspecified (5) Cellulitis Code(s): L03.90 - CELLULITIS, UNSPECIFIED (6) Chronic venous stasis Code(s): I87.8 - OTHER SPECIFIED DISORDERS OF VEINS (7) Fluid overload Code(s): E87.70 - FLUID OVERLOAD, UNSPECIFIED Qualifiers: Hypervolemia type: unspecified Qualified Code(s): E87.70 - Fluid overload, unspecified (8) Type 2 diabetes mellitus with other diabetic kidney complication Code(s): E11.29 - TYPE 2 DIABETES MELLITUS [facility] DIABETIC KIDNEY COMPLICATION (9) Weakness Code(s): R53.1 - WEAKNESS (10) Diabetes mellitus, insulin dependent (IDDM), uncontrolled Code(s): E10.65 - TYPE 1 DIABETES MELLITUS WITH HYPERGLYCEMIA (11) Edema Code(s): R60.9 - EDEMA, UNSPECIFIED (12) Stasis dermatitis of both legs Code(s): I87.2 - VENOUS INSUFFICIENCY (CHRONIC) (PERIPHERAL) (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
[2018-12-19] MEDS: ACETAMINOPHEN 325 MG TABLET (FP) PO PRN (13:33)
[2018-12-19] MEDS: GABAPENTIN 300 MG CAPSULE (FP) PO SCH ×2 (13:34→22:07)
[2018-12-19] MEDS: oxyCODONE HCL 5 MG TABLET PO PRN (16:21)
[2018-12-19] MEDS ORDERED: PT OWN MED DRAWER 7, Y5N ONE ×2 (20:09→21:40)
[2018-12-19] MEDS: ALLOPURINOL 300 MG TABLET (FP) PO SCH (22:07)
[2018-12-19] MEDS: CYCLOBENZAPRINE HCL 5 MG TABLET PO SCH (22:07)
[2018-12-19] MEDS: ATORVASTATIN CA 40 MG TABLET (FP) PO SCH (22:07)
[2018-12-19] MEDS: LIDOCAINE PATCH REMOVAL MC SCH (22:14)
[2018-12-20] MEDS: GABAPENTIN 300 MG CAPSULE (FP) PO SCH ×3 (06:34→21:38)
[2018-12-20] MEDS: FUROSEMIDE 40 MG/4 ML INJECTABLE VIAL IVPUSH SCH (06:34)
[2018-12-20] MEDS: CLOPIDOGREL BISULFATE 75 MG TABLET (FP) PO SCH (06:35)
[2018-12-20] MEDS: hydrALAZINE HCL 25 MG TABLET (FP) PO SCH ×3 (06:35→21:37)
[2018-12-20] MEDS: INSULIN SLIDING SCALE (NOVOLOG) 1 VIAL SQ SCH ×3 (06:35→17:00)
[2018-12-20 07:55] LABS: CALCIUM 7.7 mg/dL (8.5-10.1); CREATININE 2.4 mg/dL (0.55-1.3); MAGNESIUM 1.9 mg/dL (1.8-2.4); PHOSPHOROUS 3.9 mg/dL (2.5-4.9); POTASSIUM 4.4 mmol/L (3.5-5.1)
[2018-12-20] MEDS: amLODIPine BESYLATE 5 MG TABLET (FP) PO SCH (08:17)
[2018-12-20] MEDS ORDERED: cefTRIAXone SODIUM 1 GM VIAL ONE (08:52)
[2018-12-20] MEDS ORDERED: DEXTROSE 5%-WATER - 50 ML IVPB ONE (08:52)
[2018-12-20] MEDS: oxyCODONE HCL 5 MG TABLET PO PRN ×2 (09:18→21:41)
[2018-12-20] MEDS: CYCLOBENZAPRINE HCL 5 MG TABLET PO SCH ×2 (09:18→21:38)
[2018-12-20] MEDS: COLCHICINE 0.6 MG CAP PO SCH (09:18)
[2018-12-20] MEDS: ASPIRIN 81 MG CHEWABLE TABLETS PO SCH (09:19)
[2018-12-20] MEDS: LIDOCAINE 5% TOPICAL PATCH TP SCH (09:20)
[2018-12-20] MEDS: APIXABAN 5 MG TABLET PO SCH ×2 (09:20→21:37)
[2018-12-20] MEDS: CEFTRIAXONE 1 GM in DEXTROSE 5%-WATER - 50 ML IVPB SCH (09:21)
--- NOTE | 2018-12-20 10:39 | PN ---
Progress Note (short form) - Note Progress Note: s: no chest pain, sob, palps, dizziness. Current Medications Generic Name Dose Route Start Last Admin Trade Name Freq PRN Reason Stop Dose Admin Acetaminophen 650 mg 12/15/18 06:39 12/19/18 13:33 Tylenol - PO 650 mg Q6H PRN Administration PAIN LEVEL 1-5 Allopurinol 300 mg 12/14/18 22:30 12/19/18 22:07 Zyloprim - PO 300 mg HS [facility] Administration Amlodipine Besylate 5 mg 12/15/18 08:00 12/20/18 08:17 Norvasc - PO 5 mg DAILY@0800 [facility] Administration Apixaban 5 mg 12/14/18 22:27 12/20/18 09:20 Eliquis - PO 5 mg BID [facility] Administration Aspirin 81 mg 12/15/18 10:00 12/20/18 09:19 Asa - PO 81 mg DAILY [facility] Administration Atorvastatin Calcium 40 mg 12/14/18 22:00 12/19/18 22:07 Lipitor - PO 40 mg HS [facility] Administration Clopidogrel Bisulfate 75 mg 12/15/18 06:00 12/20/18 06:35 Plavix - PO 75 mg DAILY@0600 [facility] Administration Colchicine 0.6 mg 12/15/18 10:00 12/20/18 09:18 Colcrys PO 0.6 mg DAILY [facility] Administration Cyclobenzaprine HCl 5 mg 12/19/18 22:00 12/20/18 09:18 Cyclobenzaprine Hcl PO 5 mg BID [facility] Administration Cyclosporine 100 mg 12/14/18 22:30 12/19/18 22:07 Sandimmune PO 100 mg HS [facility] Administration Furosemide 40 mg 12/19/18 06:00 12/20/18 06:34 Lasix Injection - IVPUSH 40 mg BID@0600,1400 [facility] Administration Gabapentin 600 mg 12/19/18 13:06 12/20/18 06:34 Neurontin - PO 600 mg TID [facility] Administration Hydralazine HCl 25 mg 12/14/18 22:00 12/20/18 06:35 Apresoline - PO 25 mg TID [facility] Administration Ceftriaxone Sodium 1 gm/ 50 mls @ 100 mls/hr 12/14/18 16:00 12/20/18 09:21 Dextrose IVPB 100 mls/hr DAILY [facility] Administration Protocol Ferric Carboxymaltose 750 mg/ 265 mls @ 530 mls/hr 12/21/18 16:00 Sodium Chloride IVPB 12/21/18 16:29 ONCE ONE Insulin Aspart 1 vial 12/16/18 07:00 12/20/18 06:35 Novolog Vial Sliding Scale - SQ Not Given TIDAC [facility] Protocol Lidocaine 1 patch 12/16/18 10:00 12/20/18 09:20 Lidoderm Patch - TP 1 patch DAILY [facility] Administration Meclizine HCl 12.5 mg 12/15/18 11:00 Antivert - PO DAILY PRN vertigo Miscellaneous 1 each 12/16/18 22:00 12/19/18 22:14 Lidoderm Patch Removal MC 1 each DAILY@2200 [facility] Administration Multi-Ingredient Lotion 1 applic 12/18/18 12:58 12/19/18 22:14 Eucerin (Large Jar) - TP 1 applic BID PRN Administration DRY SKIN Oxycodone HCl 5 mg 12/19/18 15:34 12/20/18 09:18 Roxicodone - PO 5 mg Q6H PRN Administration PAIN 6-10 Vital Signs Period Temp Pulse Resp BP Sys/Reddy Pulse Ox Last 24 Hr 97.6 F-99.1 F 82-96 20-20 104-141/56-67 96-97 Constitutional: Yes: No Distress Eyes: Yes: Conjunctiva Clear Respiratory: Yes: CTA Bilaterally Gastrointestinal: Yes: Soft, Abdomen, Obese Cardiovascular: Yes: Pulse Irregular JVD: No Carotid Bruit: No Heart Sounds: Yes: S1, S2 (irreg) Edema: chronic stasis changes pitting and nonpitting edema Neurological: Yes: Alert, Oriented CBC, BMP 12/17/18 05:40 12/20/18 05:47 CXR: no congestion SR, 1st degree AVB, APCs, Peaked T waves tele: sinus Assessment/Plan Shortness of breath, cough, acute on chronic diastolic HF - improved with iv lasix - today bun/cr rising. d/w renal, will hold lasix for now and monitor renal fcn tomorrow. atrial fibrillation - cont eliquis - no bb for history of bradycardia CAD s/p recent PCI - cont aspirin, plavix - not on bb due to bradycardia ZHANG on CKD -as above, renal following DM - manage per primary HTN - cont hydralazine, amlodipine anemia - manage per heme
--- NOTE | 2018-12-20 10:51 | PN ---
Progress Note (short form) - Note Progress Note: Renal follow up for ZHANG Coverage for Dr. Anderson Seen and examined at the bedside awake and alert no acute complaints continues to have leg swelling, reports decreased urine output Vital Signs Temperature 97.7 F 12/20/18 08:37 Pulse Rate 86 12/20/18 08:37 Respiratory Rate 20 12/20/18 08:37 Blood Pressure 141/66 12/20/18 08:37 O2 Sat by Pulse Oximetry (%) 97 12/20/18 09:00 Intake & Output 12/17/18 12/18/18 12/19/18 12/20/18 23:59 23:59 23:59 23:59 Intake Total 1160 1230 480 20 Output Total 320 Balance 1160 1230 160 20 Weight 149.232 kg 150.321 kg 150.321 kg 150.321 kg NAD awake and alert neck supple Dec BS bilateral lung artis + edema in LE CBC, BMP 12/17/18 05:40 12/20/18 05:47 Current Medications Acetaminophen (Tylenol -) 650 mg PO Q6H PRN PRN Reason: PAIN LEVEL 1-5 Last Admin: 12/19/18 13:33 Dose: 650 mg Allopurinol (Zyloprim -) 300 mg PO [facility] Last Admin: 12/19/18 22:07 Dose: 300 mg Amlodipine Besylate (Norvasc -) 5 mg PO DAILY@0800 [facility] Last Admin: 12/20/18 08:17 Dose: 5 mg Apixaban (Eliquis -) 5 mg PO BID [facility] Last Admin: 12/20/18 09:20 Dose: 5 mg Aspirin (Asa -) 81 mg PO DAILY [facility] Last Admin: 12/20/18 09:19 Dose: 81 mg Atorvastatin Calcium (Lipitor -) 40 mg PO HS [facility] Last Admin: 12/19/18 22:07 Dose: 40 mg Clopidogrel Bisulfate (Plavix -) 75 mg PO DAILY@0600 [facility] Last Admin: 12/20/18 06:35 Dose: 75 mg Colchicine (Colcrys) 0.6 mg PO DAILY [facility] Last Admin: 12/20/18 09:18 Dose: 0.6 mg Cyclobenzaprine HCl (Cyclobenzaprine Hcl) 5 mg PO BID [facility] Last Admin: 12/20/18 09:18 Dose: 5 mg Cyclosporine (Sandimmune) 100 mg PO [facility] Last Admin: 12/19/18 22:07 Dose: 100 mg Furosemide (Lasix Injection -) 40 mg IVPUSH BID@0600,1400 [facility] Last Admin: 12/20/18 06:34 Dose: 40 mg Gabapentin (Neurontin -) 600 mg PO TID [facility] Last Admin: 12/20/18 06:34 Dose: 600 mg Hydralazine HCl (Apresoline -) 25 mg PO TID [facility] Last Admin: 12/20/18 06:35 Dose: 25 mg Ceftriaxone Sodium 1 gm/ (Dextrose) 50 mls @ 100 mls/hr IVPB DAILY [facility]; Protocol Last Admin: 12/20/18 09:21 Dose: 100 mls/hr Ferric Carboxymaltose 750 mg/ (Sodium Chloride) 265 mls @ 530 mls/hr IVPB ONCE ONE Stop: 12/21/18 16:29 Insulin Aspart (Novolog Vial Sliding Scale -) 1 vial SQ TIDAC [facility]; Protocol Last Admin: 12/20/18 06:35 Dose: Not Given Lidocaine (Lidoderm Patch -) 1 patch TP DAILY [facility] Last Admin: 12/20/18 09:20 Dose: 1 patch Meclizine HCl (Antivert -) 12.5 mg PO DAILY PRN PRN Reason: vertigo Miscellaneous (Lidoderm Patch Removal) 1 each MC DAILY@2200 [facility] Last Admin: 12/19/18 22:14 Dose: 1 each Multi-Ingredient Lotion (Eucerin (Large Jar) -) 1 applic TP BID PRN PRN Reason: DRY SKIN Last Admin: 12/19/18 22:14 Dose: 1 applic Oxycodone HCl (Roxicodone -) 5 mg PO Q6H PRN PRN Reason: PAIN 6-10 Last Admin: 12/20/18 09:18 Dose: 5 mg Impression 1. CKD 2. ZHANG 3. s/p cardiac stent 4. morbid obesity 5. DM 6. PVD 7. Gout 8. Large cell granular leukemia/lymphoma 9. anemia 10. hyperkalemia Plan Cr uptrending 1.7>2.1>2.4 will hold Lasix today (already got am dose), check BUN/Cr tomorrow and will decide on continued diuretics discussed with cardiology Clinically stable/unchanged trend renal function and electrolytes daily Jay Evans DO
--- NOTE | 2018-12-20 10:52 | CONSULT ---
Consult Consult Specialty:: Podiatry Referred by:: Dr Neil Reason for Consultation:: Painful thick mycotic toenails in shoes and ambulation Debride mycotic toenails b/l left foot had 2nd digit amputated - History of Present Illness Chief Complaint: Painful thick dystrophic mycotic toenails - Past Medical History [employer]: Yes: Peripheral Neuropathy Cardio/Vascular: Yes: AFIB, CAD, CHF, HTN, Hyperlipdemia Gastrointestinal: Yes: GERD Renal/: Yes: Renal Inusuff, Other (gopal) Infectious Disease: Yes: Other (osteomyelitis of left fifth metartarsal 2012) Endocrine: Yes: Diabetes Mellitus Additional Medical History: morbid obesity - Past Surgical History Past Surgical History: Yes: Stent (X2) - Alcohol/Substance Use Hx Alcohol Use: No History of Substance Use: reports: None - Smoking History Smoking history: Never smoked Have you smoked in the past 12 months: No Aproximately how many cigarettes per day: 0 - Social History Usual Living Arrangement: With Spouse (in house with 2 steps to enter and 20 inside) ADL: Independent (without AD) History of Recent Travel: No Home Medications - Allergies Allergies/Adverse Reactions: Allergies Allergy/AdvReac Type Severity Reaction Status Date / Time No Known Allergies Allergy Verified 12/19/18 10:46 - Home Medications Home Medications: Ambulatory Orders Clopidogrel Bisulfate [Plavix -] 75 mg PO DAILY 05/17/16 Gabapentin 300 mg PO AM 05/17/16 Apixaban [Eliquis -] 5 mg PO BID tablet 07/25/16 Colchicine 0.6 mg PO DAILY 12/02/16 Meclizine HCl [Antivert -] 1 tab PO PRN 10/10/18 Allopurinol [Zyloprim -] 300 mg PO DAILY 11/13/18 Cyclosporine 100 mg PO DAILY 11/14/18 Cyclosporine [SandIMMUNE (NF) -] 100 mg PO DAILY 11/14/18 Dulaglutide [Trulicity] 0.75 mg SQ WEEKLY 11/14/18 Gabapentin 600 mg PO HS 11/14/18 Acetaminophen [Tylenol .Regular Strength -] 650 mg PO Q6H PRN tablet 11/17/18 Amlodipine Besylate [Norvasc -] 10 mg PO DAILY #30 tablet 11/17/18 Ammonium Lactate Lotion [Lac-Hydrin 12] 1 applic TP BID PRN #1 bottle 11/17/18 Apixaban [Eliquis -] 5 mg PO BID tablet 11/17/18 Aspirin [ASA -] 81 mg PO DAILY tab.chew 11/17/18 Atorvastatin Ca [Lipitor] 40 mg PO HS #30 tablet 11/17/18 Clopidogrel Bisulfate [Plavix -] 75 mg PO DAILY tablet 11/17/18 Docusate Sodium [Colace -] 100 mg PO TID #90 capsule 11/17/18 Polyethylene Glycol 3350 [Miralax 119 gm Btl -] 17 gm PO DAILY #1 bottle Sennosides [Senna -] 2 tab PO HS PRN #60 tablet 11/17/18 Sodium Zirconium Cyclosilicate [Lokelma] 10 gm PO BID #60 packet 11/17/18 Torsemide [Demadex -] 50 mg PO DAILY #30 tablet 11/17/18 hydrALAZINE HCL [Apresoline -] 25 mg PO TID #90 tablet 11/17/18 Physical Exam Vital Signs: Vital Signs Temperature 97.7 F 12/20/18 08:37 Pulse Rate 86 12/20/18 08:37 Respiratory Rate 20 12/20/18 08:37 Blood Pressure 141/66 12/20/18 08:37 O2 Sat by Pulse Oximetry (%) 97 12/20/18 09:00 Labs: CBC, BMP 12/17/18 05:40 12/20/18 05:47
--- NOTE | 2018-12-20 14:11 | PN ---
Progress Note, Physician Chief Complaint: Weight Gain Afib ZHANG History of Present Illness: Previous notes and events reviewed awake and alert NAD complain of productive cough with yellow sputum denies chest pain or SOB - Current Medication List Current Medications: Active Medications Acetaminophen (Tylenol -) 650 mg PO Q6H PRN PRN Reason: PAIN LEVEL 1-5 Last Admin: 12/19/18 13:33 Dose: 650 mg Allopurinol (Zyloprim -) 300 mg PO [facility] Last Admin: 12/19/18 22:07 Dose: 300 mg Amlodipine Besylate (Norvasc -) 5 mg PO DAILY@0800 [facility] Last Admin: 12/20/18 08:17 Dose: 5 mg Apixaban (Eliquis -) 5 mg PO BID [facility] Last Admin: 12/20/18 09:20 Dose: 5 mg Aspirin (Asa -) 81 mg PO DAILY [facility] Last Admin: 12/20/18 09:19 Dose: 81 mg Atorvastatin Calcium (Lipitor -) 40 mg PO [facility] Last Admin: 12/19/18 22:07 Dose: 40 mg Clopidogrel Bisulfate (Plavix -) 75 mg PO DAILY@0600 [facility] Last Admin: 12/20/18 06:35 Dose: 75 mg Colchicine (Colcrys) 0.6 mg PO DAILY [facility] Last Admin: 12/20/18 09:18 Dose: 0.6 mg Cyclobenzaprine HCl (Cyclobenzaprine Hcl) 5 mg PO BID [facility] Last Admin: 12/20/18 09:18 Dose: 5 mg Cyclosporine (Sandimmune) 100 mg PO [facility] Last Admin: 12/19/18 22:07 Dose: 100 mg Furosemide (Lasix Injection -) 40 mg IVPUSH BID@0600,1400 [facility] Last Admin: 12/20/18 06:34 Dose: 40 mg Gabapentin (Neurontin -) 600 mg PO TID [facility] Last Admin: 12/20/18 13:37 Dose: 600 mg Hydralazine HCl (Apresoline -) 25 mg PO TID [facility] Last Admin: 12/20/18 13:37 Dose: 25 mg Ceftriaxone Sodium 1 gm/ (Dextrose) 50 mls @ 100 mls/hr IVPB DAILY [facility]; Protocol Last Admin: 12/20/18 09:21 Dose: 100 mls/hr Ferric Carboxymaltose 750 mg/ (Sodium Chloride) 265 mls @ 530 mls/hr IVPB ONCE ONE Stop: 11/11/19 16:29 Insulin Aspart (Novolog Vial Sliding Scale -) 1 vial SQ TIDAC [facility]; Protocol Last Admin: 12/20/18 11:35 Dose: Not Given Lidocaine (Lidoderm Patch -) 1 patch TP DAILY [facility] Last Admin: 12/20/18 09:20 Dose: 1 patch Meclizine HCl (Antivert -) 12.5 mg PO DAILY PRN PRN Reason: vertigo Miscellaneous (Lidoderm Patch Removal) 1 each MC DAILY@2200 [facility] Last Admin: 12/19/18 22:14 Dose: 1 each Multi-Ingredient Lotion (Eucerin (Large Jar) -) 1 applic TP BID PRN PRN Reason: DRY SKIN Last Admin: 12/19/18 22:14 Dose: 1 applic Oxycodone HCl (Roxicodone -) 5 mg PO Q6H PRN PRN Reason: PAIN 6-10 Last Admin: 12/20/18 09:18 Dose: 5 mg - Objective Vital Signs: Vital Signs Temperature 97.8 F 12/20/18 12:00 Pulse Rate 95 H 12/20/18 12:00 Respiratory Rate 22 H 12/20/18 12:00 Blood Pressure 135/77 12/20/18 12:00 O2 Sat by Pulse Oximetry (%) 97 12/20/18 09:00 Constitutional: Yes: No Distress, Calm Eyes: Yes: Conjunctiva Clear HENT: Yes: Atraumatic Cardiovascular: Yes: Regular Rate and Rhythm Respiratory: Yes: Regular, Diminished Gastrointestinal: Yes: Normal Bowel Sounds, Soft, Abdomen, Obese Musculoskeletal: Yes: Muscle Weakness Extremities: Yes: WNL Edema: Yes Edema: LLE: 1+, RLE: 1+ Integumentary: Yes: Venous Stasis Changes Neurological: Yes: Alert, Oriented Psychiatric: Yes: Alert, Oriented Labs: CBC, BMP 12/17/18 05:40 12/20/18 05:47 INR, PTT INR 1.50 (0.83-1.09) H 12/14/18 15:04 Microbiology 12/14/18 15:04 Blood - Peripheral Venous Blood Culture - Final NO GROWTH AFTER 5 DAYS INCUBATION 12/14/18 15:04 Blood - Peripheral Venous Blood Culture - Final NO GROWTH AFTER 5 DAYS INCUBATION Problem List - Problems (1) Acute kidney injury superimposed on CKD Assessment/Plan: -Renal on board -BUN/Cr 78.0/2.4 -monitor renal function Code(s): N17.9 - ACUTE KIDNEY FAILURE, UNSPECIFIED; N18.9 - CHRONIC KIDNEY DISEASE, UNSPECIFIED (2) Anemia Assessment/Plan: -Hg 9.1 -monitor H/H -transfuse for Hg ,7.0 to avoid fluid overload -Iron panel reviewed -Ferric Carboymaltose scheduled for tomorrow -Heme on board Code(s): D64.9 - ANEMIA, UNSPECIFIED Qualifiers: Anemia type: iron deficiency Iron deficiency anemia type: unspecified iron deficiency Qualified Code(s): D50.9 - Iron deficiency anemia, unspecified (3) CHF (congestive heart failure) Assessment/Plan: -Cardiology on board -daily weights -fluid restriction -strict I&Os -Furosemide Code(s): I50.9 - HEART FAILURE, UNSPECIFIED Qualifiers: Heart failure type: unspecified Heart failure chronicity: acute on chronic Qualified Code(s): I50.9 - Heart failure, unspecified (4) Leg pain Assessment/Plan: -Neurontin -Neurology on board Code(s): M79.606 - PAIN IN LEG, UNSPECIFIED (5) Afib Assessment/Plan: -Eliquis -Cardiology on board Code(s): I48.91 - UNSPECIFIED ATRIAL FIBRILLATION Qualifiers: Atrial fibrillation type: unspecified Qualified Code(s): I48.91 - Unspecified atrial fibrillation (6) Diabetes Assessment/Plan: -[facility] -A1c 6.1% Code(s): E11.9 - TYPE 2 DIABETES MELLITUS WITHOUT COMPLICATIONS Qualifiers: Diabetes mellitus type: type 2 Diabetes mellitus terminal makeup operator insulin use: with terminal makeup operator use Diabetes mellitus complication status: without complication Qualified Code(s): E11.9 - Type 2 diabetes mellitus without complications; Z79.4 - adjunct faculty for medical terminology (current) use of insulin (7) HLD (hyperlipidemia) Assessment/Plan: -Atorvastatin Code(s): E78.5 - HYPERLIPIDEMIA, UNSPECIFIED (8) HTN (hypertension) Assessment/Plan: -Amlodipine, Hydralazine -low Na diet Code(s): I10 - ESSENTIAL (PRIMARY) HYPERTENSION (9) Morbid obesity with BMI of 50.0-59.9, adult Assessment/Plan: -Dietary consult Code(s): E66.01 - MORBID (SEVERE) OBESITY DUE TO EXCESS CALORIES; Z68.43 - BODY MASS INDEX (BMI) 50.0-59.9, ADULT Assessment/Plan see problem list dvt ppx
[2018-12-20] MEDS ORDERED: guaiFENesin/D-M SUGAR-FREE/ACLHOL-FREE 118 ML BOTTLE PO PRN (15:47)
[2018-12-20] MEDS: ACETAMINOPHEN 325 MG TABLET (FP) PO PRN (18:15)
[2018-12-20] MEDS ORDERED: PT OWN MED DRAWER 7, Y5N ONE (20:51)
[2018-12-20] MEDS: ATORVASTATIN CA 40 MG TABLET (FP) PO SCH (21:37)
[2018-12-20] MEDS: LIDOCAINE PATCH REMOVAL MC SCH (21:38)
[2018-12-20] MEDS: ALLOPURINOL 300 MG TABLET (FP) PO SCH (21:38)
[2018-12-21 06:23] LABS: BASO % 0.6 % (0-2.0); EOS % 13.1 % (0-4.5); HEMATOCRIT 25.4 % (35.4-49); HEMOGLOBIN 8.4 GM/dL (11.7-16.9); LYMPH % 40.2 % (8-40); MCH 28.3 pg (25.7-33.7); MCHC 33.2 g/dl (32.0-35.9); MEAN CELL VOLUME 85.1 fl (80-96); MEAN PLT VOLUME 8.3 fl (7.5-11.1); MONO % 23.7 % (3.8-10.2); NEUT % 22.4 % (42.8-82.8); PLATELET COUNT 209 K/MM3 (134-434); RBC 2.99 M/mm3 (4.00-5.60); RDW 19.4 % (11.9-15.9); WHITE BLOOD COUNT 3.7 K/mm3 (4.0-10.0)
[2018-12-21 07:18] LABS: ALBUMIN 2.3 g/dl (3.4-5.0); BILIRUBIN,TOTAL 0.4 mg/dL (0.2-1); BLOOD UREA NITROGEN 89.5 mg/dL (7-18); CALCIUM 7.8 mg/dL (8.5-10.1); CREATININE 2.4 mg/dL (0.55-1.3); PHOSPHOROUS 4.5 mg/dL (2.5-4.9); POTASSIUM 4.7 mmol/L (3.5-5.1); TOT PROT 5.8 g/dl (6.4-8.2)
[2018-12-21] MEDS: GABAPENTIN 300 MG CAPSULE (FP) PO SCH ×2 (07:40→14:01)
[2018-12-21] MEDS: CLOPIDOGREL BISULFATE 75 MG TABLET (FP) PO SCH (07:41)
[2018-12-21] MEDS: FUROSEMIDE 40 MG/4 ML INJECTABLE VIAL IVPUSH SCH (07:41)
[2018-12-21] MEDS: hydrALAZINE HCL 25 MG TABLET (FP) PO SCH ×2 (07:41→14:01)
[2018-12-21] MEDS: INSULIN SLIDING SCALE (NOVOLOG) 1 VIAL SQ SCH ×2 (07:42→10:49)
[2018-12-21 09:13] VITALS: TEMP 97.5
[2018-12-21] MEDS: amLODIPine BESYLATE 5 MG TABLET (FP) PO SCH (09:23)
[2018-12-21] MEDS ORDERED: cefTRIAXone SODIUM 1 GM VIAL ONE (09:55)
[2018-12-21] MEDS ORDERED: DEXTROSE 5%-WATER - 50 ML IVPB ONE (09:55)
[2018-12-21] MEDS: COLCHICINE 0.6 MG CAP PO SCH (09:57)
[2018-12-21] MEDS: APIXABAN 5 MG TABLET PO SCH (09:58)
[2018-12-21] MEDS: ASPIRIN 81 MG CHEWABLE TABLETS PO SCH (09:58)
[2018-12-21] MEDS: LIDOCAINE 5% TOPICAL PATCH TP SCH (09:58)
[2018-12-21] MEDS: CEFTRIAXONE 1 GM in DEXTROSE 5%-WATER - 50 ML IVPB SCH (09:58)
[2018-12-21] MEDS ORDERED: PT OWN MED DRAWER 7, Y5N ONE (10:39)
[2018-12-21] MEDS: oxyCODONE HCL 5 MG TABLET PO PRN (10:43)
[2018-12-21] MEDS: CYCLOBENZAPRINE HCL 5 MG TABLET PO SCH (10:45)
[2018-12-21 11:01] LABS: ANISOCYTOSIS 2+; MACROCYTOSIS 1+; OVALOCYTE 1+; PLATELET ESTIMATE NORMAL; TEAR DROP CELLS 1+
--- NOTE | 2018-12-21 11:34 | CONSULT ---
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: Yes: Peripheral Neuropathy Cardio/Vascular: Yes: AFIB, CAD, CHF, HTN, Hyperlipdemia Gastrointestinal: Yes: GERD Renal/: Yes: Renal Inusuff, Other (gopal) Infectious Disease: Yes: Other (osteomyelitis of left fifth metartarsal 2011) Endocrine: Yes: Diabetes Mellitus Additional Medical History: morbid obesity - Past Surgical History Past Surgical History: Yes: Stent (X2) - Alcohol/Substance Use Hx Alcohol Use: No History of Substance Use: reports: None - Smoking History Smoking history: Never smoked Have you smoked in the past 12 months: No Aproximately how many cigarettes per day: 0 - Social History Usual Living Arrangement: With Spouse (in house with 2 steps to enter and 20 inside) ADL: Independent (without AD) History of Recent Travel: No Home Medications - Allergies Allergies/Adverse Reactions: Allergies Allergy/AdvReac Type Severity Reaction Status Date / Time No Known Allergies Allergy Verified 12/19/18 10:46 - Home Medications Home Medications: Ambulatory Orders Clopidogrel Bisulfate [Plavix -] 75 mg PO DAILY 05/17/16 Gabapentin 300 mg PO AM 05/17/16 Apixaban [Eliquis -] 5 mg PO BID tablet 07/25/16 Colchicine 0.6 mg PO DAILY 12/02/16 Meclizine HCl [Antivert -] 1 tab PO PRN 10/10/18 Allopurinol [Zyloprim -] 300 mg PO DAILY 11/13/18 Cyclosporine 100 mg PO DAILY 11/14/18 Cyclosporine [SandIMMUNE (NF) -] 100 mg PO DAILY 11/14/18 Dulaglutide [Trulicity] 0.75 mg SQ WEEKLY 11/14/18 Gabapentin 600 mg PO HS 11/14/18 Acetaminophen [Tylenol .Regular Strength -] 650 mg PO Q6H PRN tablet 11/17/18 Amlodipine Besylate [Norvasc -] 10 mg PO DAILY #30 tablet 11/17/18 Ammonium Lactate Lotion [Lac-Hydrin 12] 1 applic TP BID PRN #1 bottle 11/17/18 Apixaban [Eliquis -] 5 mg PO BID tablet 11/17/18 Aspirin [ASA -] 81 mg PO DAILY tab.chew 11/17/18 Atorvastatin Ca [Lipitor] 40 mg PO HS #30 tablet 11/17/18 Clopidogrel Bisulfate [Plavix -] 75 mg PO DAILY tablet 11/17/18 Docusate Sodium [Colace -] 100 mg PO TID #90 capsule 11/17/18 Polyethylene Glycol 3350 [Miralax 119 gm Btl -] 17 gm PO DAILY #1 bottle Sennosides [Senna -] 2 tab PO HS PRN #60 tablet 11/17/18 Torsemide [Demadex -] 50 mg PO DAILY #30 tablet 11/17/18 hydrALAZINE HCL [Apresoline -] 25 mg PO TID #90 tablet 11/17/18 Promethazine HCl [Phenergan Plain 6.25 MG/5 ML -] 12.5 mg PO TID PRN #100 ml 12/29 Physical Exam Vital Signs: Vital Signs Temperature 97.5 F L 12/21/18 09:10 Pulse Rate 78 12/21/18 09:10 Respiratory Rate 20 12/21/18 09:10 Blood Pressure 146/52 L 12/21/18 09:10 O2 Sat by Pulse Oximetry (%) 95 12/21/18 09:00 Extremities: Yes: Other (vsgi, +decreased ns, +multiple foot deformities including 5th toes b/l, +ht b/l feet, +xerosis, +vascular wound right leg.) Labs: CBC, BMP 12/21/18 05:35 12/21/18 05:35 Assessment/Plan ht 5 b/l dm with neuropathy foot deformities wound right leg Patient educated on diabetic foot care. Patient needs diabetic shoes. Patient would benefit from NCV. Foot care q8 weeks. Vascular following leg wound right.
[2018-12-21 12:09] VITALS: BMI 50.8
[2018-12-21] MEDS ORDERED: PROMETHAZINE HCL ORAL SYRUP 6.25 MG/5 ML (BULK BOTTLE) PO PRN (13:11)
--- NOTE | 2018-12-21 13:13 | DS ---
Physical Examination Vital Signs: Vital Signs Temperature 97.5 F L 12/21/18 09:10 Pulse Rate 78 12/21/18 09:10 Respiratory Rate 20 12/21/18 09:10 Blood Pressure 146/52 L 12/21/18 09:10 O2 Sat by Pulse Oximetry (%) 95 12/21/18 09:00 Constitutional: Yes: Calm Cardiovascular: Yes: Regular Rate and Rhythm, S1, S2 Respiratory: Yes: CTA Bilaterally Gastrointestinal: Yes: Normal Bowel Sounds, Soft Extremities: Yes: Other (weeping) Edema: Yes Labs: CBC, BMP 12/21/18 05:35 12/21/18 05:35 Discharge Summary Problems reviewed: Yes Reason For Visit: EDEMA WEIGHT GAIN Current Active Problems ZHANG (acute kidney injury) (Acute) Acute kidney injury superimposed on CKD (Acute) Anemia (Acute) CHF (congestive heart failure) (Acute) CKD (chronic kidney disease) (Acute) Cellulitis (Acute) Chronic venous stasis (Acute) Cough (Acute) Fluid overload (Acute) Leg pain (Acute) Radiculopathy (Acute) Type 2 diabetes mellitus with other diabetic kidney complication (Acute) Weakness (Acute) Weight gain (Acute) Hospital Course: 63 yr old male with extensive history went to PMD today and noticed increase in 13 pounds weight gain and increase leg swelling also complaining of cough and shortness of breath, patient has been complaint with lasix at home and got promethazine liquid and 7 dyas of iv abx in hospital patient got diuretics and now ready to go home Condition: Stable - Instructions Referrals: Diomedes Neil MD [Primary Care Provider] - 1 Week Shira Anderson MD [Staff Physician] - 1 Week - Home Medications Comprehensive Discharge Medication List: Ambulatory Orders Clopidogrel Bisulfate [Plavix -] 75 mg PO DAILY 05/17/16 Gabapentin 300 mg PO AM 05/17/16 Apixaban [Eliquis -] 5 mg PO BID tablet 07/25/16 Colchicine 0.6 mg PO DAILY 12/02/16 Meclizine HCl [Antivert -] 1 tab PO PRN 10/10/18 Allopurinol [Zyloprim -] 300 mg PO DAILY 11/13/18 Cyclosporine 100 mg PO DAILY 11/14/18 Cyclosporine [SandIMMUNE (NF) -] 100 mg PO DAILY 11/14/18 Dulaglutide [Trulicity] 0.75 mg SQ WEEKLY 11/14/18 Gabapentin 600 mg PO HS 11/14/18 Acetaminophen [Tylenol .Regular Strength -] 650 mg PO Q6H PRN tablet 11/17/18 Amlodipine Besylate [Norvasc -] 10 mg PO DAILY #30 tablet 11/17/18 Ammonium Lactate Lotion [Lac-Hydrin 12] 1 applic TP BID PRN #1 bottle 11/17/18 Apixaban [Eliquis -] 5 mg PO BID tablet 11/17/18 Aspirin [ASA -] 81 mg PO DAILY tab.chew 11/17/18 Atorvastatin Ca [Lipitor] 40 mg PO HS #30 tablet 11/17/18 Clopidogrel Bisulfate [Plavix -] 75 mg PO DAILY tablet 11/17/18 Docusate Sodium [Colace -] 100 mg PO TID #90 capsule 11/17/18 Polyethylene Glycol 3350 [Miralax 119 gm Btl -] 17 gm PO DAILY #1 bottle Sennosides [Senna -] 2 tab PO HS PRN #60 tablet 11/17/18 Sodium Zirconium Cyclosilicate [Lokelma] 10 gm PO BID #60 packet 11/17/18 Torsemide [Demadex -] 50 mg PO DAILY #30 tablet 11/17/18 hydrALAZINE HCL [Apresoline -] 25 mg PO TID #90 tablet 11/17/18
--- NOTE | 2018-12-21 13:31 | PN ---
Progress Note, Physician History of Present Illness: Pt seen and examined at bedside. He is awake and appears comfortable. He denies shortness of breath. - Current Medication List Current Medications: Active Medications Acetaminophen (Tylenol -) 650 mg PO Q6H PRN PRN Reason: PAIN LEVEL 1-5 Last Admin: 12/20/18 18:15 Dose: 650 mg Allopurinol (Zyloprim -) 300 mg PO [facility] Last Admin: 12/20/18 21:38 Dose: 300 mg Amlodipine Besylate (Norvasc -) 5 mg PO DAILY@0800 [facility] Last Admin: 12/21/18 09:23 Dose: 5 mg Apixaban (Eliquis -) 5 mg PO BID [facility] Last Admin: 12/21/18 09:58 Dose: 5 mg Aspirin (Asa -) 81 mg PO DAILY [facility] Last Admin: 12/21/18 09:58 Dose: 81 mg Atorvastatin Calcium (Lipitor -) 40 mg PO HS [facility] Last Admin: 12/20/18 21:37 Dose: 40 mg Clopidogrel Bisulfate (Plavix -) 75 mg PO DAILY@0600 [facility] Last Admin: 12/21/18 07:41 Dose: 75 mg Colchicine (Colcrys) 0.6 mg PO DAILY [facility] Last Admin: 12/21/18 09:57 Dose: 0.6 mg Cyclobenzaprine HCl (Cyclobenzaprine Hcl) 5 mg PO BID [facility] Last Admin: 12/21/18 10:45 Dose: 5 mg Cyclosporine (Sandimmune) 100 mg PO HS [facility] Last Admin: 12/20/18 21:37 Dose: 100 mg Furosemide (Lasix Injection -) 40 mg IVPUSH BID@0600,1400 [facility] Last Admin: 12/20/18 06:34 Dose: 40 mg Gabapentin (Neurontin -) 600 mg PO TID [facility] Last Admin: 12/21/18 07:40 Dose: 600 mg Hydralazine HCl (Apresoline -) 25 mg PO TID [facility] Last Admin: 12/21/18 07:41 Dose: 25 mg Ferric Carboxymaltose 750 mg/ (Sodium Chloride) 265 mls @ 530 mls/hr IVPB ONCE ONE Stop: 12/21/18 16:29 Insulin Aspart (Novolog Vial Sliding Scale -) 1 vial SQ TIDAC [facility]; Protocol Last Admin: 12/21/18 10:49 Dose: Not Given Lidocaine (Lidoderm Patch -) 1 patch TP DAILY [facility] Last Admin: 12/21/18 09:58 Dose: 1 patch Meclizine HCl (Antivert -) 12.5 mg PO DAILY PRN PRN Reason: vertigo Miscellaneous (Lidoderm Patch Removal) 1 each MC DAILY@2200 [facility] Last Admin: 12/20/18 21:38 Dose: Not Given Multi-Ingredient Lotion (Eucerin (Large Jar) -) 1 applic TP BID PRN PRN Reason: DRY SKIN Last Admin: 12/19/18 22:14 Dose: 1 applic Oxycodone HCl (Roxicodone -) 5 mg PO Q6H PRN PRN Reason: PAIN 6-10 Last Admin: 12/21/18 10:43 Dose: 5 mg Promethazine HCl (Phenergan Liquid -) 12.5 mg PO TID PRN PRN Reason: COUGH - Objective Vital Signs: Vital Signs Temperature 97.5 F L 12/21/18 09:10 Pulse Rate 78 12/21/18 09:10 Respiratory Rate 20 12/21/18 09:10 Blood Pressure 146/52 L 12/21/18 09:10 O2 Sat by Pulse Oximetry (%) 95 12/21/18 09:00 Constitutional: Yes: Calm Eyes: Yes: Conjunctiva Clear HENT: Yes: Atraumatic Neck: Yes: Supple Cardiovascular: Yes: S1, S2 Respiratory: Yes: CTA Bilaterally Gastrointestinal: Yes: Soft, Abdomen, Obese Genitourinary: Yes: WNL Musculoskeletal: Yes: WNL Edema: Yes Edema: LLE: 2+, RLE: 2+ Integumentary: Yes: Venous Stasis Changes Neurological: Yes: Oriented Psychiatric: Yes: Oriented Labs: CBC, BMP 12/21/18 05:35 12/21/18 05:35 INR, PTT INR 1.50 (0.83-1.09) H 12/14/18 15:04 Assessment/Plan Current Medications Generic Name Dose Route Start Last Admin Trade Name Freq PRN Reason Stop Dose Admin Acetaminophen 650 mg 12/15/18 06:39 12/20/18 18:15 Tylenol - PO 650 mg Q6H PRN Administration PAIN LEVEL 1-5 Allopurinol 300 mg 12/14/18 22:30 12/20/18 21:38 Zyloprim - PO 300 mg HS [facility] Administration Amlodipine Besylate 5 mg 12/15/18 08:00 12/21/18 09:23 Norvasc - PO 5 mg DAILY@0800 [facility] Administration Apixaban 5 mg 12/14/18 22:27 12/21/18 09:58 Eliquis - PO 5 mg BID [facility] Administration Aspirin 81 mg 12/15/18 10:00 12/21/18 09:58 Asa - PO 81 mg DAILY [facility] Administration Atorvastatin Calcium 40 mg 12/14/18 22:00 12/20/18 21:37 Lipitor - PO 40 mg HS [facility] Administration Clopidogrel Bisulfate 75 mg 12/15/18 06:00 12/21/18 07:41 Plavix - PO 75 mg DAILY@0600 [facility] Administration Colchicine 0.6 mg 12/15/18 10:00 12/21/18 09:57 Colcrys PO 0.6 mg DAILY [facility] Administration Cyclobenzaprine HCl 5 mg 12/19/18 22:00 12/21/18 10:45 Cyclobenzaprine Hcl PO 5 mg BID [facility] Administration Cyclosporine 100 mg 12/14/18 22:30 12/20/18 21:37 Sandimmune PO 100 mg HS [facility] Administration Furosemide 40 mg 12/19/18 06:00 12/20/18 06:34 Lasix Injection - IVPUSH 40 mg BID@0600,1400 [facility] Administration Gabapentin 600 mg 12/19/18 13:06 12/21/18 07:40 Neurontin - PO 600 mg TID [facility] Administration Hydralazine HCl 25 mg 12/14/18 22:00 12/21/18 07:41 Apresoline - PO 25 mg TID [facility] Administration Ferric Carboxymaltose 750 mg/ 265 mls @ 530 mls/hr 12/21/18 16:00 Sodium Chloride IVPB 12/21/18 16:29 ONCE ONE Insulin Aspart 1 vial 12/16/18 07:00 12/21/18 10:49 Novolog Vial Sliding Scale - SQ Not Given TIDAC [facility] Protocol Lidocaine 1 patch 12/16/18 10:00 12/21/18 09:58 Lidoderm Patch - TP 1 patch DAILY [facility] Administration Meclizine HCl 12.5 mg 12/15/18 11:00 Antivert - PO DAILY PRN vertigo Miscellaneous 1 each 12/16/18 22:00 12/20/18 21:38 Lidoderm Patch Removal MC Not Given DAILY@2200 [facility] Multi-Ingredient Lotion 1 applic 12/18/18 12:58 12/19/18 22:14 Eucerin (Large Jar) - TP 1 applic BID PRN Administration DRY SKIN Oxycodone HCl 5 mg 12/19/18 15:34 12/21/18 10:43 Roxicodone - PO 5 mg Q6H PRN Administration PAIN 6-10 Promethazine HCl 12.5 mg 12/21/18 13:11 Phenergan Liquid - PO TID PRN COUGH Impression 1. CKD 2. ZHANG 3. s/p cardiac stent 4. morbid obesity 5. DM 6. PVD 7. Gout 8. Large cell granular leukemia/lymphoma 9. anemia 10. hyperkalemia Plan - cont with torsemide at home - potassium stable - discussed diet and fluid intake at length with pt and family - monitor renal function as outpt - arb on hold - monitor weights
[2018-12-21 14:06] VITALS: BP 121/52; PULSE 76
[2018-12-21] MEDS ORDERED: FERRIC CARBOXYMALTOSE 750 MG in SODIUM CHLORIDE 250 ML IVPB ONE (16:00)
== END 2018-12-21 15:00 | disposition home or self-care (01) | DRG 682 ==
LOC: JER 13:00 → JERBED 15:12 → J4W 18:16
PROVIDERS: ADMIT Student in an Organized Health Care Education/Training Program; ATTEND Student in an Organized Health Care Education/Training Program
DX: N17.9 Acute kidney failure, unspecified (principal); I50.33 Acute on chronic diastolic (congestive) heart failure; I13.0 Hypertensive heart and chronic kidney disease with heart failure and stage 1 through stage 4 chronic kidney disease, or unspecified chronic kidney disease; Z68.43 Body mass index [BMI] 50.0-59.9, adult; C91.Z0 Other lymphoid leukemia not having achieved remission; I44.0 Atrioventricular block, first degree; E11.22 Type 2 diabetes mellitus with diabetic chronic kidney disease; N18.9 Chronic kidney disease, unspecified; E66.01 Morbid (severe) obesity due to excess calories; D50.9 Iron deficiency anemia, unspecified; I48.91 Unspecified atrial fibrillation; E87.70 Fluid overload, unspecified; M10.9 Gout, unspecified; I25.10 Atherosclerotic heart disease of native coronary artery without angina pectoris; E11.51 Type 2 diabetes mellitus with diabetic peripheral angiopathy without gangrene; E78.5 Hyperlipidemia, unspecified; E11.42 Type 2 diabetes mellitus with diabetic polyneuropathy; K21.9 Gastro-esophageal reflux disease without esophagitis; M54.17 Radiculopathy, lumbosacral region; M79.606 Pain in leg, unspecified; E87.5 Hyperkalemia; D73.1 Hypersplenism; R05 Cough; R26.9 Unspecified abnormalities of gait and mobility; D70.9 Neutropenia, unspecified; B35.1 Tinea unguium; M48.061 Spinal stenosis, lumbar region without neurogenic claudication; Z89.422 Acquired absence of other left toe(s); Z86.718 Personal history of other venous thrombosis and embolism; Z95.5 Presence of coronary angioplasty implant and graft; Z79.4 Long term (current) use of insulin
CPT/HCPCS: 36415; 71045-TC-FY; 72131-TC; 80048; 80053; 80061; 82550; 82728; 82962; 83036; 83540; 83550; 83721; 83735; 83880; 84100; 84439; 84443; 84484; 85025; 85044; 85610; 85730; 86850; 86900; 86901; 87040; 93005; 93010; 93970-TC; 95860-TC; 97116-GP; 97161-GP; 99283-25; J0131; J1439; J7502